=== PATIENT | male | born 1965 | race Caucasian/White ===

== ENCOUNTER 2018-05-12 07:18 | Emergency (ER) | payer BC, SELFPAY ==
[2018-05-12 07:19] VITALS: BP 172/87; PULSE 79; RESP 18; TEMP 36.6; O2SAT 98; BMI 33.5
--- NOTE | 2018-05-12 07:36 | EKG12_ITS ---
Test Reason : CHEST TIGHTNESS Blood Pressure : / mmHG Vent. Rate : 078 BPM Atrial Rate : 078 BPM P-R Int : 190 ms QRS Dur : 094 ms QT Int : 356 ms P-R-T Axes : 046 010 027 degrees QTc Int : 405 ms Normal sinus rhythm Normal ECG Confirmed by VIVEK BISWAS, DANIELLE ([id number]), multimedia editor MANNY SEGURA ([id number]) on 05/13/2018 2:20:03 PM Referred By: LEONCIO Confirmed By:DANIELLE DOYLE MD
--- NOTE | 2018-05-12 07:40 | NURSING ---
NO OLD EKGS
[2018-05-12] MEDS: Diphth,Pertuss(Acell),Tet Vac 0.5 ML Vial IM (07:52)
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
[2018-05-12 08:04] LABS: Hematocrit 45.7 % (40-54); Mean Corp Hgb Conc 32.8 g/gl (32-36); Mean Corpuscular Volume 85.4 fL (80-94); Mean Platelet Vol. 9.1 fl (6.2-12.0); Platelet Count 208 K/mm3 (150-450); RBC Distribution Width CV 13.9 % (11.6-14.6); Red Blood Count 5.35 M/mm3 (4.6-6.2); White Blood Count 7.6 K/mm3 (4.4-11.0)
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
[2018-05-12 08:05] LABS: Scan Indicated on CBC? Y/N NO
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
[2018-05-12 08:19] LABS: Anion Gap 10 (5-15); BUN 18 mg/dL (7-18); BUN/Creat Ratio 15.1 RATIO (10-20); Calcium,Total 9.1 mg/dL (8.5-10.1); Chloride 106 mmol/L (98-107); Creatinine, Serum 1.19 mg/dL (0.70-1.30); EST Glomerular Filtration Rate 69 mL/min (>60); Est Glom Filt Rate - Afr Amer 83 mL/min (>60); Estimated Creatinine Clearance 76.68 ml/min; Glucose 149 mg/dL (74-106); Potassium 3.9 mmol/L (3.5-5.1); Sodium Level 140 mmol/L (136-145)
[2018-05-12 10:41] VITALS: PULSE 81; RESP 18; O2SAT 94
[2018-05-12 11:02] VITALS: BP 135/90; PULSE 85; RESP 18; O2SAT 94
[2018-05-12] MEDS: Naproxen 250 MG Tablet 500 MG PO (11:11)
[2018-05-12 12:50] VITALS: BP 136/89; PULSE 78; RESP 18; O2SAT 98
== END 2018-05-12 12:52 | disposition home or self-care (01) ==
PROVIDERS: Emergency Provider Emergency Medicine; Family Provider Internal Medicine; PCP Internal Medicine
DX: S80.12XA Contusion of left lower leg, initial encounter (principal); V43.53XA Car driver injured in collision with pick-up truck in traffic accident, initial encounter; Y93.89 Activity, other specified; Y92.410 Unspecified street and highway as the place of occurrence of the external cause; R07.89 Other chest pain; E11.9 Type 2 diabetes mellitus without complications; Z79.84 Long term (current) use of oral hypoglycemic drugs
CPT/HCPCS: 71046; 80048; 84484; 85027; 90715; 93005; 99285; A4216

== ENCOUNTER → 2018-11-07 13:13 | Outpatient (CLI) | payer SELFPAY ==
--- NOTE | 2018-11-07 13:17 | CT_ITS ---
STUDY: CARDIAC CALCIUM SCORING - CT CHEST REASON FOR EXAM: Male, 52 years old. Calcium screening RADIATION DOSAGE (If Supplied By Facility): CTDIvol = ( 12.19 ) mGy, DLP = ( 195.04 ) mGycm TECHNIQUE: Axial non-enhanced images were acquired through the heart for the sole purpose of measuring coronary artery calcium. Individualized dose optimization techniques were used for this CT. COMPARISON: None. FINDINGS: Loculation percentile. Cardiac chambers are normal in size and shape. Pericardium is intact. Coronary arteries have normal orthotopic origins with a right dominant system. Visualized portions of the lungs are unremarkable. Total Calcium Score: Computer-generated score is 41. This places the patient at 75[address]/Limited Chest CT w/CCTA IMPRESSION: A Calcium Score of 41 places the patient in the approximate 75th percentile, based on the [employer] data calculator. Higher than population average future risk of adverse cardiovascular events. No incidental adverse findings. Please go to: [email or web address] , for a description of the calculator. Electronically Signed: Santa Chua, at 15:09 EDT Tel , Service support ,
[2018-11-07 13:27] VITALS: BP 113/83; PULSE 68; RESP 18; TEMP 36.9; O2SAT 100; BMI 32.3
--- NOTE | 2018-11-11 18:16 | CA.SCORE ---
Calcium Scoring Date of Study:: 11/11/18 Coronary Calcium Scoring: High-resolution Computed Tomographic imaging of the chest was performed on 11/07/2018 with particular attention paid to the coronary arteries. Images from the examination were analyzed for the presence and extent of coronary artery calcification , using coronary calcium quantification software. The patient tolerated the procedure well and there were no complications. The results of the coronary calcification analysis are provided below. - Findings Left Main (LM): 0 Left Anterior Descending (LAD): 40.5 Left Circumflex (LCX): 0 Right Coronary Artery (RCA): 0 Total Agatston Score: 40.5 Percentile Ranking: Percentile ranking: Between 50 and 75% of people of the same gender/similar age had the same/lower scores Calcium Scoring Interpretation: 0 No identifiable atherosclerotic plaque. Very low cardiovascular disease risk. <5% chance of presence coronary artery disease A Negative Examination 1-10 Minimal Plaque burden. Significant coronary artery disease very unlikely. 11-100 Mild plaque burden. Likely mild or minimal coronary atherosclerosis. 101-400 Moderate plaque burden Moderate non-obstructive coronary artery disease highly likely. Over 400 Extensive plaque burden. High likelihood of at least one significant coronary stenosis (>50% diameter) Calcium Score: 11 - 100 Likely mild or minimal coronary stenosis - Continue cardiovascular risk factor evaluation and care as deemed appropriate
== END ==
PROVIDERS: Family Provider Internal Medicine; PCP Internal Medicine; Referring Provider Internal Medicine; Visit Provider Internal Medicine
DX: Z13.6 Encounter for screening for cardiovascular disorders (principal); E11.9 Type 2 diabetes mellitus without complications; E78.5 Hyperlipidemia, unspecified
CPT/HCPCS: 75571; 76380

== ENCOUNTER → 2019-02-10 05:58 | Outpatient (CLI) | payer BC, SELFPAY ==
[2019-01-13 15:03] VITALS: BMI 32.6
--- NOTE | 2019-02-10 13:51 | STRESSREP_ITS ---
Stress Test Report Date: 02-10-19 Procedure: Exercise tolerance test/imaging study Indications: Abnormal cardiac CTA Consent: Per the patient Procedure: The patient exercised on a Kip protocol for 10 minutes completing Stage III and 1 minute of Stage IV achieving a peak heart rate of 157 bpm (92 % predicted maximal heart rate) with a peak blood pressure 184/90 mmHg and a peak MET capacity of 12 METs. The baseline ECG demonstrated normal sinus rhythm. The peak exercise ECG demonstrated no obvious ECG changes. There were no cardiac dysrhythmias pretest, during exercise, or recovery. The functional capacity was considered good. There was no complaint of chest discomfort during exercise or recovery. The examination was discontinued secondary to dyspnea. Impression: 1. Technically adequate (percent predicted maximal heart rate greater than 85%) exercise tolerance test 2. Peak exercise ECG with no obvious ECG changes 3. There were no cardiac dysrhythmias pretest, during exercise, or recovery 4. Nuclear images pending Myocardial perfusion imaging study: Technique: The patient was injected with 9.0 mCi of technetium 99m Cardiolite and subsequently rest SPECT Cardiolite nuclear imaging was obtained in the horizontal long, vertical long, and short axis views. The patient exercised on a Kip protocol for 10 minutes completing Stage III and 1 minute of Stage IV achieving a peak heart rate of 157 bpm (92 % predicted maximal heart rate) with a peak blood pressure 184/90 mmHg and a peak MET capacity of 12 METs. The patient was injected with 34.0 mCi of technetium 99m Cardiolite and subsequently stress SPECT Cardiolite nuclear imaging was obtained in the horizontal long, vertical long, and short axis views. A gated Cardiolite study at peak stress was obtained. Interpretation: Rest and stress SPECT Cardiolite nuclear imaging status post realignment, normalization, and attenuation correction, demonstrates the appearance of relative uniform tracer uptake and myocardial perfusion appearing within normal limits. There is end systolic thickening and brightening. The gated Cardiolite study demonstrates myocardial thickening and inward wall motion. The reported LVEF is 59 %. Impression: 1. Rest and stress SPECT Cardiolite nuclear imaging demonstrate relative uniform tracer uptake and myocardial perfusion appearing within normal limits. 2. The gated Cardiolite study reports an LVEF of 59 %. This note was generated with Inst[employer]ivation software. It may contain incorrect words, spelling, and punctuation that were not noted in checking the note before signing.
== END ==
PROVIDERS: Family Provider Internal Medicine; PCP Internal Medicine; Referring Provider Internal Medicine Cardiovascular Disease; Visit Provider Internal Medicine Cardiovascular Disease
DX: R93.1 Abnormal findings on diagnostic imaging of heart and coronary circulation (principal); E78.2 Mixed hyperlipidemia; I10 Essential (primary) hypertension; E11.9 Type 2 diabetes mellitus without complications
CPT/HCPCS: 78452; 93017; A9500; A4216

== ENCOUNTER 2024-09-21 22:11 | Observation (INO) | payer OTHER, SELFPAY ==
[2024-09-21 22:13] VITALS: BP 154/106; PULSE 105; RESP 18; TEMP 36.4; O2SAT 97; BMI 33.6
--- NOTE | 2024-09-21 22:46 | EKG12_ITS ---
Test Reason : DYSRHYTHMIA Blood Pressure : */* mmHG Vent. Rate : 87 BPM Atrial Rate : 87 BPM P-R Int : 182 ms QRS Dur : 80 ms QT Int : 342 ms P-R-T Axes : 29 -1 8 degrees QTcB Int : 411 ms Normal sinus rhythm Minimal voltage criteria for LVH, may be normal variant ( R in aVL ) Borderline ECG Confirmed by VIVEK BISWAS, DANIELLE ([id number]), manuscript editor MANNY SEGURA ([id number]) on 09/22/2024 1:04:35 PM Referred By: Confirmed By: DANIELLE DOYLE MD
--- NOTE | 2024-09-21 22:46 | CT_ITS ---
PROCEDURE: STROKE CTA HEAD AND NECK W/CON 09/21/2024 REASON FOR EXAM: INTERMITTENT LEFT SIDED NUMBNESS WITH DYSEQUILBRM TECHNIQUE: Noncontrast CT head. Followed by CT Angiography of the head and neck with IV contrast. Multiplanar Sagittal and Coronal images were obtained. 3D and MIP multiplanar post processing was performed. CONTRAST: Isovue 370 VOLUME: 100 mL One or more dose reduction techniques were used (e.g., Automated exposure control, adjustment of the mA and/or kV according to patient size, use of iterative reconstruction technique). RADIATION DOSE SUMMARY: DLP: 1742.7 mGycm COMPARISON: None available. FINDINGS: CTA HEAD: Patent intracranial arterial vasculature. No large vessel occlusion or significant stenosis. origin of bilateral service order dispatcher, an anatomic variant. No visible connection of the right BIOMEDICAL ENGINEERING PROFESSOR to the basilar artery. Left BIOMEDICAL ENGINEERING PROFESSOR P1 segment is present. There is a small 2 mm saccular aneurysm projecting anterosuperiorly from the supraclinoid right ICA (S4 image [id number]). No additional aneurysm, or vascular malformation identified. CTA NECK: Conventional aortic arch branching. Bilateral cervical carotid and vertebral arteries are patent without any significant stenosis. No luminal irregularity to suggest aneurysm or dissection. NONCONTRAST CT HEAD: No acute intracranial hemorrhage, extra-axial collection, mass effect or evidence of acute infarct. Ventricles and subarachnoid spaces are normal in size. Orbital contents are unremarkable. Intact skull base and calvarium. Small left maxillary mucous retention cyst/polyp. CT/STROKE CTA Head AND Neck W/Con IMPRESSION: 1. No acute intracranial abnormality. 2. Widely patent intracranial and cervical arterial vasculature. 3. 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 Reading Location: [id number]
--- NOTE | 2024-09-21 22:51 | ED.VIS.STROK ---
HPI History of Present Illness Chief Complaint: Numb/Ting Informant: patient and spouse/S.O. Narrative Narrative: 58-year-old male states has been having episodes of numbness left tongue and mouth, left hand, left foot last 10 seconds or so at a time, for the past 36 hours or so. States today he had 3-4 episodes in the last 1 occurred about an hour prior to arrival. He is asymptomatic at this time. No associated headaches, vision changes, earaches, but he has had dizziness associated with them that he initially said felt like lightheadedness but then gave more details and said that it felt like he was off balance and was more like a sensation of movement. Not associated with headache, nausea, vomiting, fever, says his neck is felt a little sore lately but nothing severe. 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 States he may be sinus infection citing some right maxillary pressure/pain and congestion several weeks ago but that went away on its own. He takes no antiplatelet or anticoagulants. He is a diabetic and checked his blood sugar prior to coming here and it was in the 140s. [facility] Medical History (Updated 09/22/24 @ 00:[address] Chalino Smith MD) Abnormal TSH Mixed hyperlipidemia Abnormal cardiac CT angiography Type 2 diabetes mellitus Home Medications ?Medication ?Instructions ?Recorded ?Last Taken ?Type metformin 500 mg tablet 1,000 mg PO BIDCM DIABETES 05/12/18 05/12/18 History 1000 MG vitamins A,C,W-zmgp-jvkwmh 4,296 1 cap PO DAILY 01/09/19 Unknown History mcg-226 mg-90 mg capsule (PreserVision AREDS) cholecalciferol (vitamin D3) 125 5,000 unit PO DAILY 01/13/19 Unknown History mcg (5,000 unit) capsule dapagliflozin propanediol 10 mg 10 mg PO DAILY 09/21/24 Unknown History tablet (Farxiga) semaglutide 0.25 mg or 0.5 mg (2 0.5 mg subcut QWEEK 09/21/24 Unknown History mg/3 mL) subcutaneous pen injector (Ozempic) Allergy/AdvReac Type Severity Reaction Status Date / Time No Known Allergies Allergy Verified 09/21/24 22:13 Family History (Updated 01/13/19 @ 15:10 by Marcela Pino) Mother CVA (cerebral vascular accident) Grandfather Heart disease Father Kidney disease Daughter [id number]-[id number] (WPW) syndrome Surgical History History of knee surgery History of umbilical hernia repair Social History (Updated 01/13/19 @ 16:[address] Bakari Gibson MD) Smoking Status: Never smoker alcohol intake: current details: occasional substance use type: does not use caffeine: No ROS ROS ED Constitutional Constitutional ED: Denies chills or fever(s) Eyes Eyes: Denies change in vision or diplopia ENT ENT ED: Reports other Details: Chronic tinnitus no change ; Denies rhinorrhea or sore throat Cardiovascular Cardiovascular: Denies chest pain or palpitations Respiratory/Chest Respiratory/Chest: Denies cough or dyspnea Gastrointestinal Gastrointestinal: Denies abdominal pain, diarrhea, nausea or vomiting Genitourinary Genitourinary ED: Denies dysuria or hematuria Musculoskeletal Musculoskeletal: Denies back pain or neck pain Integumentary Denies abscess or rash Neurologic Neurologic: Reports paresthesias LUE and LLE; Denies headache(s) or weakness Psychiatric Psychiatric: Denies anxiety or suicidal thoughts EXAM Physical Exam Const Vital Signs: 09/21/24 22:13 09/21/24 23:00 09/21/24 23:02 Temperature 97.6 F L Temperature Source Temporal Pulse Rate 105 H 97 Respiratory Rate 18 18 Blood Pressure 154/106 H 132/107 H Blood Pressure Mean 122 115 Pulse Ox 97 97 99 Oxygen Delivery Method Room Air Room Air Room Air 09/22/24 00:00 09/22/24 00:00 Temperature 99.0 F Temperature Source Pulse Rate 91 93 Respiratory Rate 16 16 Blood Pressure 150/92 H 150/92 H Blood Pressure Mean 111 111 Pulse Ox 96 97 Oxygen Delivery Method Room Air Positive well nourished and well developed General Appearance ED: well developed and NAD HEENT Reports TM's clear and moist mucous membranes normocephalic and atraumatic Tympanic Membrane ED: Yes TM's clear Eyes PERRL and EOMs intact bilaterally Neck full ROM and supple Resp normal respiratory effort and clear to auscultation bilaterally Cardio regular rate, regular rhythm and no murmurs GI non-tender and non-distended Auscultation: normoactive bowel sounds Palpation: soft Back/Spine no CVA tenderness General Back: other FROM Extremity normal to inspection General Extremety ED: Negative for edema, pulses abnormal or tenderness General Extremity: Negative for edema or pulses abnormal Neuro oriented x3, CN's II-XII intact bilaterally and no sensory deficits noted Sensorium / Orientation: awake and alert Motor Exam: strength 5/5 throughout Skin no rashes or lesions noted and no wounds MDM MDM MDM Narrative Medical decision making narrative: Patient asymptomatic at this time, vitals noted. Blood pressure in 150s. I think this is less likely to be a TIA although certainly vascular events are considered, so I sent him for CT angiography of the head and neck, as well as getting labs and an EKG which shows a normal sinus rhythm with no acute ectopy or abnormality. I reviewed the CT images as well as result which I agree with. 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 Given that his symptoms are left body right brain, and being unsure if they correlate with the location of this, I discussed with stroke neurology [facility] Dr. Mora, he recommends admitting the patient to our facility for MRI and neurology consultation, states the patient does not need to be transferred to [facility] for emergent neurosurgical consultation at this time. Discussed with hospitalist for admission. Of note the patient has had several brief 10 seconds or less episodes of this while in the emergency department, I do not think he needs to have thrombolytics as this is less likely to be a vascular event under the circumstances. Differential also includes subclinical seizure activity, migraine, other primary [employer] syndromes. Lab Data Attestation: I reviewed the patient's lab results. Labs: Laboratory Results - last 24 hr 09/21/24 22:54 WBC 7.0 RBC 5.39 Hgb 15.5 Hct 44.4 MCV 82.4 MCH 28.8 MCHC 34.9 RDW Std Deviation 40.5 RDW Coeff of Alexey 13.7 Plt Count 258 MPV 9.2 Immature Gran % (Auto) 0.300 Neut % (Auto) 53.3 Lymph % (Auto) 37.1 Bent % (Auto) 6.0 Eos % (Auto) 2.6 Baso % (Auto) 0.7 Absolute Neuts (auto) 3.7 Absolute Lymphs (auto) 2.58 Nucleated RBC % 0 Sodium 136 Potassium 4.2 Chloride 99 Carbon Dioxide 20.2 L Anion Gap 16 H BUN 12 Creatinine 1.01 Estim Creat Clear Calc 96.74 Est GFR (MDRD) Non-Af 87 BUN/Creatinine Ratio 11.4 Glucose 185 H Calcium 9.1 Radiography Diagnostic Testing: Clinical Impression(s) from Imaging Studies Head/Neck CTA 09/21/24 22:46 IMPRESSION: 1. No acute intracranial abnormality. 2. Widely patent intracranial and cervical arterial vasculature. 3. 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 Reading Location: [facility] Rhythm Strip Rhythm Strip: Sinus Rhythm Rate: 87 Ectopy: None EKG Initial EKG: Attestation: I personally reviewed and interpreted this EKG as follows: Interpretation: Sinus Rhythm and No Acute Injury Pattern Comments: Nml axis & intervals; nml EKG Management Discussion w/another healthcare provider: Hospitalist and [employer] Operator (Stroke neurology [facility]) Discharge Plan Dx/Rx/DC Orders Clinical Impression: Left sided numbness, Dysequilibrium Disposition Disposition: Acute Care Hospital [facility] NIHSS NIHSS 1a. Level of Consciousness: 0 - Alert; keenly responsive 1b. LOC Questions: 0 - Answers BOTH questions correctly 1c. LOC Commands: 0 - Performs BOTH tasks correctly 2. Best Gaze: 0 - Normal 3. Visual: 0 - No visual loss 4. Facial Palsy: 0 - Normal symmetrical movements 5a. Left Arm: 0 - No drift; arm holds 90 (or 45) degrees for full 10 seconds 5b. Right Arm: 0 - No drift; arm holds 90 (or 45) degrees for full 10 seconds 6a. Left Le - No drift; leg holds 30-degree position for full 5 seconds 6b. Right Le - No drift; leg holds 30-degree position for full 5 seconds 7. Limb Ataxia: 0 - Absent 8. Sensory: 0 - Normal; no sensory loss 9. Best Language: 0 - No aphasia; normal 10. Dysarthria: 0 - Normal 11. Extinction and Inattention: 0 - No abnormality Total: 0 Stroke Questions Stroke Team Activated: No (Outside 24-hour window) IV Thrombolytic Administered: No (Outside window and asymptomatic)
[2024-09-21 23:00] VITALS: BP 132/107; PULSE 97; RESP 18; O2SAT 97
[2024-09-21 23:02] VITALS: O2SAT 99
[2024-09-21 23:04] LABS: Hematocrit 44.4 % (40-54); Hemoglobin 15.5 g/dL (13.0-16.5); Immature Granulocytes Count 0.020 X10^3/uL (0.0-0.0); Mean Corp Hgb Conc 34.9 g/dL (32-36); Mean Corpuscular Volume 82.4 fL (80-94); Mean Platelet Vol. 9.2 fl (6.2-12.0); NRBC Flagged by Analyzer 0 % (0-5); Platelet Count 258 K/mm3 (150-450); RBC Distribution Width CV 13.7 % (11.6-14.6); RBC Distribution Width SD 40.5 fl (35.1-43.9); Red Blood Count 5.39 M/mm3 (4.6-6.2); White Blood Count 7.0 K/mm3 (4.4-11.0)
[2024-09-21 23:31] LABS: Anion Gap 16 (5-15); BUN 12 mg/dL (4-19); BUN/Creat Ratio 11.4 RATIO (10-20); Calcium,Total 9.1 mg/dL (7.6-11.0); Carbon Dioxide 20.2 mmol/L (21.0-32.0); Chloride 99 mmol/L (98-108); Estimated Creatinine Clearance 96.74 ml/min (50-250); Glucose 185 mg/dL (70-99); Potassium 4.2 mmol/L (3.3-5.1)
--- OUTSIDE RECORDS SUMMARY | 2024-09-21 23:34 | XMS RPT_ITS | CCD ---
Author Organization [facility] Care Team Providers Care Security Tester Name Role Phone Kathleen, Marva Unavailable Messenger, Nita Unavailable Unavailable Unavailable Unavailable Kathleen, Marva Unavailable Geovanny Toussaint Unavailable Unavailable Messenger, Nita Unavailable Unavailable Unavailable Unavailable Oliverio Garcia Unavailable José Luis, Kim Unavailable Unavailable Bakari Gibson Unavailable Viviane Munoz Unavailable Unavailable Gravius, Angelica Unavailable Unavailable Messenger, Nita Unavailable Unavailable CrossTanja Unavailable Unavailable Kathleen DO, Marva Unavailable [phone] Bakari Gibson MD Unavailable Dr. Oliverio Gracia Unavailable Gravius STATE WILDLIFE OFFICER, Angelica Unavailable Unavailable Slarb SENIOR SALES DIRECTOR, Kim Unavailable Unavailable Messenger RNNita Unavailable Unavailable Unavailable Unavailable Chalo DURANDNTanja Unavailable Unavailable Lakhwinder SENIOR SALES DIRECTOR, Tamar Unavailable Unavailable Kathleen DO, Marva Unavailable [phone] [place], [facility] Unavailable [place] STATE WILDLIFE OFFICER, Kayela Unavailable Unavailable Kathleen DO, Marva Attending Unavailable Kathleen DO, Marva Referring Unavailable Kathleen DO, Marva Consulting Unavailable Shadi SENIOR SALES DIRECTOR, Luis Unavailable Unavailable Kathleen DO, Marva Unavailable [place], Chrysalis Counciling Unavailable Bakari Gibson MD Unavailable Dr. Oliverio Garcia Unavailable [place] SENIOR SALES DIRECTOR, Luis Unavailable Unavailable Cross SENIOR SALES DIRECTOR, Tanja Unavailable Unavailable Gravius STATE WILDLIFE OFFICER, Angelica Unavailable Unavailable [place] STATE WILDLIFE OFFICER, Kayela Unavailable Unavailable Slarb SENIOR SALES DIRECTOR, Kim Unavailable Unavailable Jared RN, Nita Unavailable Unavailable Unavailable Unavailable Sandor NORTH, Lissette Unavailable Unavailable Allergies Allergy Classification Reported Allergen(s) Allergy Type Date of Onset Reaction(s) Facility NEGATED: Highlighted row has been ruled out! (1 source) Allergy to substance (finding) [facility] Work Phone: NEGATED: Highlighted row has been ruled out! (1 source) Allergy to drug (finding) [facility]; [facility] Work Phone: NEGATED: Highlighted row has been ruled out! (1 source) Allergy to substance (finding) [facility]; [facility] Work Phone: NEGATED: Highlighted row has been ruled out! (1 source) Allergy to drug (finding) [facility]; [facility] Work Phone: NEGATED: Highlighted row has been ruled out! (1 source) Allergy to substance (finding) [facility]; [facility] Work Phone: NEGATED: Highlighted row has been ruled out! (1 source) Allergy to drug (finding) [facility]; [facility] Work Phone: NEGATED: Highlighted row has been ruled out! (1 source) Allergy to substance (finding) [facility]; [facility] Work Phone: NEGATED: Highlighted row has been ruled out! (1 source) Allergy to drug (finding) [facility]; [facility] Work Phone: NEGATED: Highlighted row has been ruled out! (1 source) Allergy to substance (finding) [facility]; [facility] Work Phone: NEGATED: Highlighted row has been ruled out! (1 source) Allergy to drug (finding) [facility]; [facility] Work Phone: NEGATED: Highlighted row has been ruled out! (1 source) Allergy to substance (finding) 6 [facility]; [facility] Work Phone: NEGATED: Highlighted row has been ruled out! (1 source) Allergy to drug (finding) [facility]; [facility] Work Phone: NEGATED: Highlighted row has been ruled out! (1 source) Allergy to substance (finding) 6 [facility]; [facility] Work Phone: NEGATED: Highlighted row has been ruled out! (1 source) Allergy to drug (finding) [facility]; [facility] Work Phone: NEGATED: Highlighted row has been ruled out! (1 source) Allergy to substance (finding) 6 [facility]; [facility] Work Phone: NEGATED: Highlighted row has been ruled out! (1 source) Allergy to drug (finding) [facility]; [facility] Work Phone: Medications Completed/Discontinued Medications Medication Drug Class(es) Dates Sig (Normalized) Sig (Original) ascorbic acid 100 mg chewable tablet (20 sources) Vitamin C Comment on above: pt unsure of dose cholecalciferol 0.05 mg oral capsule (20 sources) Vitamin D Start: 12-14-2015 End: 01-13-2016 Start: 12-14-2015 End: 01-13-2016 take 1 capsule by mouth three times daily Vitamin D 2000 UNIT Oral Capsule 1 (one) Capsule tid qd for 30 days Quantity: 30 {Capsule} Refills: 0 Ordered: 16-Jan-2016 Marva Wang DO, DO, Kathleen Start : 14-Dec-2015 End : 13-Jan-2016 Inactive take 1 [IU] by mouth three times daily Vitamin D3 2000 UNIT Oral Tablet tid (2000 UNIT) Active ciclesonide 0.05 mg/actuat m etered dose nasal spray (20 sources) Start: 02-10-2010 End: 09-14-2015 Start: 02-10-2010 End: 09-14-2015 Omnaris 50 MCG/ACT Nasal Ludivina pension 2 (two) Suspension qd for 0 days Quantity: 1 {Suspension} Refills: 1 Ordered: 14-Sep-2015 Nita Coleman RN Start : 10-Feb-2010 End : 14-Sep-2015 Inactive fexofenadine hydrochloride 1 80 mg oral tablet (20 sources) Histamine-1 Receptor Antagonist Start: 02-10-2010 End: 09-14-2015 Comment on above: This order discontin ued per [facility]. metFORMIN hydrochloride 500 mg oral tablet (20 sources) Biguanide Start: 09-24-2022 Start: 06-04-2022 Start: 06-04-2022 take 2 tablets by mo uth twice daily metFORMIN 500 mg oral tablet 2 (two) Tablet bid for 30 days Quantity: 120 {Tablet} Refills: 3 Ordered: 04-Jun-2022 Marva Wang DO, DO, Kathleen Start : 04-Jun-2022 Active Comments: new dose Start: 01-04-2022 take 2 tablets by mo uth twice daily metFORMIN HCl 500 MG Oral Tablet 2 (two) Tablet bid for 30 days Quantity: 120 {Tablet} Refills: 3 Ordered: 04-Jan-2022 Marva Wang DO, DO, Kathleen Start : 04-Jan-2022 Active Comments: new dose Start: 01-03-2022 take 2 tablets by mo uth twice daily metFORMIN HCl 500 MG Oral Tablet 2 (two) Tablet bid for 30 days Quantity: 120 {Tablet} Refills: 3 Ordered: 03-Jan-2022 Marva Wang DO, DO, Kathleen Start : 03-Jan-2022 Active Comments: new dose Start: 01-03-2022 take 2 tablets by mo uth twice daily metFORMIN HCl 500 MG Oral Tablet 2 (two) Tablet bid for 30 days Quantity: 120 {Tablet} Refills: 3 Ordered: 03-Jan-2022 Marva Wang DO, DO, Kathleen Start : 03-Jan-2022 Active Comments: new dose Start: 08-30-2021 take 2 tablets by mo uth twice daily metFORMIN HCl 500 MG Oral Tablet 2 (two) Tablet bid for 30 days Quantity: 120 {Tablet} Refills: 3 Ordered: 30-Aug-2021 Marva Wang DO, DO, Kathleen Start : 30-Aug-2021 Active Comments: new dose Start: 2020 take 2 tablets by mo uth twice daily metFORMIN HCl 500 MG Oral Tablet 2 (two) Tablet bid for 30 days Quantity: 120 {Tablet} Refills: 3 Ordered: 13-Dec-2020 Marva Wang DO, DO, Kathleen Start : 13-Dec-2020 Active Comments: new dose Start: 07-22-2020 take 2 tablets by [facility] twice daily metFORMIN HCl 500 MG Oral Tablet 2 (two) Tablet bid for 30 days Quantity: 120 {Tablet} Refills: 3 Ordered: 22-Jul-2020 Marva Wang DO, DO, Kathleen Start : 22-Jul-2020 Active Comments: new dose Start: 03-24-2020 take 2 tablets by [facility] twice daily metFORMIN HCl 500 MG Oral Tablet 2 (two) Tablet bid for 30 days Quantity: 120 {Tablet} Refills: 3 Ordered: 24-Mar-2020 Marva Wang DO, DO, Kathleen Start : 24-Mar-2020 Active Comments: new dose Start: 11-19-2019 take 2 tablets by [facility] twice daily metFORMIN HCl 500 MG Oral Tablet 2 (two) Tablet bid for 30 days Quantity: 120 {Tablet} Refills: 3 Ordered: 19-Nov-2019 Marva Wang DO, DO, Kathleen Start : 19-Nov-2019 Active Comments: new dose Start: 07-13-2019 take 2 tablets by [facility] twice daily metFORMIN HCl 500 MG Oral Tablet 2 (two) Tablet bid for 30 days Quantity: 120 {Tablet} Refills: 3 Ordered: 13-Jul-2019 Marva Wang DO, DO, Kathleen Start : 13-Jul-2019 Active Comments: new dose Start: 11-03-2018 take 2 tablets by [facility] twice daily metFORMIN HCl 500 MG Oral Tablet 2 (two) Tablet bid for 30 days Quantity: 120 {Tablet} Refills: 3 Ordered: 03-Nov-2018 Marva Wang DO, DO, Kathleen Start : 03-Nov-2018 Active Comments: new dose Start: 06-24-2018 take 2 tablets by [facility] twice daily MetFORMIN HCl 500 MG Oral Tablet 2 (two) Tablet bid for 30 days Quantity: 120 {Tablet} Refills: 3 Ordered: 24-Jun-2018 Marva Wang DO, DO, Kathleen Start : 24-Jun-2018 Active Comments: new dose Start: 02-06-2018 take 2 tablets by [facility] twice daily MetFORMIN HCl 500 MG Oral Tablet 2 (two) Tablet bid for 30 days Quantity: 120 {Tablet} Refills: 3 Ordered: 06-Feb-2018 aMrva Wang DO, DO, Kathleen Start : 06-Feb-2018 Active Comments: new dose Comment on above: new dose Mounjaro 2.5 mg/0.5 mL subcu taneous pen injector (14 sources) Start: 10-24-2022 Start: 07-31-2022 Start: 07-31-2022 Mounjaro 2.5 m g/0.5 mL subcutaneous pen injector 1 (one) Solution Pen-injector qweek for 0 days Quantity: 4 {Unspecified} Refills: 2 Ordered: 31-Jul-2022 Marva Wang DO, DO, Kathleen Start : 31-Jul-2022 Active Comments: dispense one month - 4penstry coupon please has new ins now Start: 04-11-2022 Mounjaro 2.5 m g/0.5 mL subcutaneous pen injector 1 (one) Solution Pen-injector qweek for 0 days Quantity: 4 {Unspecified} Refills: 2 Ordered: 11-Apr-2022 Marva Wang DO, DO, Kathleen Start : 11-Apr-2022 Active Comments: dispense one month - 4penstry coupon please has new ins now Comment on above: dispense one month - 4penstry coupon please has new ins now Mounjaro 2.5 MG/0.5ML Subcutaneous Solution Pen-injector (1 source) Start: 01-03-2022 Mounjaro 2.5 MG/0.5ML Subcutaneous Solution Pen-injector 1 (one) Solution Pen-injector qweek for 0 days Quantity: 4 {Unspecified} Refills: 0 Ordered: 03-Jan-2022 Marva Wang DO, DO, Kathleen Start : 03-Jan-2022 Active Comments: dispense one month - 4pens Comment on above: dispense one month - 4pens oseltamivir 75 mg oral capsule (20 sources) Neuraminidase Inhibitor Start: 04-10-2016 End: 07-11-2016 sildenafil 20 mg oral tablet (20 sources) Phosphodiesterase 5 Inhibitor Start: 10-31-2022 End: 08-23-2022 Start: 10-31-2022 End: 08-23-2022 Start: 10-31-2022 End: 08-23-2022 Start: 10-31-2022 End: 08-23-2022 Start: 10-31-2022 End: 08-23-2022 Start: 07-24-2022 End: 08-23-2022 Start: 07-24-2022 take 2 tablets by mo uth once daily as needed sildenafil (pulm.hypertension) 20 mg oral tablet 2 (two) Tablet qd prn sexual activity for 30 days Quantity: 60 {Tablet} Refills: 0 Ordered: 24-Jul-2022 Marva Wang DO, DO, Kathleen Start : 24-Jul-2022 Active Comments: sixty Start: 11-10-2021 take 2 tablets by mo ut once daily as needed Sildenafil Citrate 20 MG Oral Tablet 2 (two) Tablet qd prn sexual activity for 0 days Quantity: 60 {Tablet} Refills: 3 Ordered: 10-Nov-2021 Marva Wang DO, DO, Kathleen Start : 10-Nov-2021 Active Comments: sixty Start: 04-21-2021 take 2 tablets by mo ut once daily as needed Sildenafil Citrate 20 MG Oral Tablet 2 (two) Tablet qd prn sexual activity for 0 days Quantity: 60 {Tablet} Refills: 3 Ordered: 21-Apr-2021 Marva Wang DO, DO, Kathleen Start : 21-Apr-2021 Active Comments: sixty Start: 10-10-2020 take 2 tablets by mo ut once daily as needed Sildenafil Citrate 20 MG Oral Tablet 2 (two) Tablet qd prn sexual activity for 0 days Quantity: 60 {Tablet} Refills: 3 Ordered: 10-Oct-2020 Marva Wang DO, DO, Kathleen Start : 10-Oct-2020 Active Comments: sixty Start: 05-12-2020 take 2 tablets by mo uth once daily as needed Sildenafil Citrate 20 MG Oral Tablet 2 (two) Tablet qd prn sexual activity for 0 days Quantity: 60 {Tablet} Refills: 3 Ordered: 12-May-2020 Marva Wang DO Kathleen DO Marva Start : 12-May-2020 Active Comments: cathy Start: 01-08-2020 take 2 tablets by mo uth once daily as needed Sildenafil Citrate 20 MG Oral Tablet 2 (two) Tablet qd prn sexual activity for 0 days Quantity: 60 {Tablet} Refills: 3 Ordered: 08-Jan-2020 Kathleen DO, Marva Kathleen DO Marva Start : 08-Jan-2020 Active Comments: sixty Start: 01-06-2020 take 2 tablets by mo uth once daily as needed Sildenafil Citrate 20 MG Oral Tablet 2 (two) Tablet qd prn sexual activity for 0 days Quantity: 60 {Tablet} Refills: 3 Ordered: 06-Jan-2020 Kathleen DO, Marva Kathleen DO Marva Start : 06-Jan-2020 Active Comments: sixty Start: 01-06-2020 take 2 tablets by mo uth once daily as needed Sildenafil Citrate 20 MG Oral Tablet 2 (two) Tablet qd prn sexual activity for 0 days Quantity: 60 {Tablet} Refills: 3 Ordered: 06-Jan-2020 Kathleen DO, Marva Kathleen DO Marva Start : 06-Jan-2020 Active Comments: sixty Start: 08-25-2019 take 2 tablets by mo uth once daily as needed Sildenafil Citrate 20 MG Oral Tablet 2 (two) Tablet qd prn sexual activity for 0 days Quantity: 60 {Tablet} Refills: 3 Ordered: 25-Aug-2019 Kathleen DO, Marva Kathleen DO Marva Start : 25-Aug-2019 Active Comments: sixty Start: 11-25-2018 take 2 tablets by mo uth once daily as needed Sildenafil Citrate 20 MG Oral Tablet 2 (two) Tablet qd prn sexual activity for 0 days Quantity: 60 {Tablet} Refills: 3 Ordered: 25-Nov-2018 Kathleen DO, Marva Kathleen DO Marva Start : 25-Nov-2018 Active Comments: sixty Start: 07-23-2018 take 2 tablets by mo uth once daily as needed Sildenafil Citrate 20 MG Oral Tablet 2 (two) Tablet qd prn sexual activity for 0 days Quantity: 60 {Tablet} Refills: 3 Ordered: 23-Jul-2018 Nita Coleman LPN Start : 23-Jul-2018 Active Comments: sixty Start: 03-19-2018 take 2 tablets by mo uth once daily as needed Sildenafil Citrate 20 MG Oral Tablet 2 (two) Tablet qd prn sexual activity for 0 days Quantity: 60 {Tablet} Refills: 3 Ordered: 19-Mar-2018 Geovanny Toussaint Start : 19-Mar-2018 Active Comments: cathy Start: 11-13-2017 take 2 tablets by [facility] once daily as needed Sildenafil Citrate 20 MG Oral Tablet 2 (two) Tablet qd prn sexual activity for 0 days Quantity: 60 {Tablet} Refills: 3 Ordered: 13-Nov-2017 Marva Wang DO, DO, Kathleen Start : 13-Nov-2017 Active Comments: sixty Comment on above: sixty SITagliptin 100 mg oral tabl et (20 sources) Dipeptidyl Peptidase 4 Inhibitor Start: 01-03-2022 End: 01-03-2022 Start: 12-07-2021 take 1 tablet by keke th once daily Januvia 100 MG Oral Tablet 1 Tablet qd for 0 days Quantity: 30 {Tablet} Refills: 3 Ordered: 07-Dec-2021 Marva Wang DO, DO, Kathleen Start : 07-Dec-2021 Active Start: 07-24-2021 take 1 tablet by keke once daily Januvia 100 MG Oral Tablet 1 Tablet qd for 0 days Quantity: 30 {Tablet} Refills: 3 Ordered: 24-Jul-2021 Marva Wang DO, DO, Kathleen Start : 24-Jul-2021 Active Start: 03-15-2021 take 1 tablet by keke th once daily Januvia 100 MG Oral Tablet 1 Tablet qd for 0 days Quantity: 30 {Tablet} Refills: 3 Ordered: 15-Mar-2021 Marva Wang DO, DO, Kathleen Start : 15-Mar-2021 Active Start: 10-26-2020 take 1 tablet by keke th once daily Januvia 100 MG Oral Tablet 1 Tablet qd for 0 days Quantity: 30 {Tablet} Refills: 3 Ordered: 26-Oct-2020 Angelica eMneses CMA Start : 26-Oct-2020 Active Start: 07-20-2020 take 1 tablet by keke th once daily Januvia 100 MG Oral Tablet 1 Tablet qd for 0 days Quantity: 30 {Tablet} Refills: 3 Ordered: 20-Jul-2020 Marva Wang DO, DO, Kathleen Start : 20-Jul-2020 Active tadalafil 20 mg oral tablet (20 sources) Phosphodiesterase 5 Inhibitor Start: 11-13-2017 End: 07-23-2018 Viteyes AREDS Advanced (8 sources) Viteyes AREDS Advanced Oral Capsule (20 sources) take 1 capsule by mouth once daily Viteyes AREDS Advanced Oral Capsule daily Active NEGATED: Highlighted row has not occurred!drug or medication (20 sources) No Known Historical Medications NEGATED: Highlighted row has not occurred!No Known Historical Medications (11 sources) No Known Historical Medications Problems Active Problems Problem Classification Problem Date Documented Da te Episodic/Chronic Adjustment disorders (20 sources) Stress; Translations: [Situational stress] 01-03-2022 Chronic Administrative/social admission (20 sources) Pneumococcal vaccination given; Translations: [Counseling procedure with explicit context] 10-17-2016 Episodic Coronary atherosclerosis and other heart disease (16 sources) Calcification of coronary artery; Translations: [Elevated coronary artery calcium score] 11-14-2018 Chronic Diabetes mellitus with complications (20 sources) Type II diabetes mellitus uncontrolled; Translations: [Diabetes mellitus type 2, uncontrolled (Renamed from Uncontrolled type 2 diabetes mellitus)] Resolved: 04-11-2022 03-19-2018 Chronic Comment on above: will institute exerc ise and watch sugars -bsd show big iimprovement-=- Diabetes mellitus with complications (20 sources) Diabetes mellitus with complications Diabetes mellitus without complication (20 sources) Type 2 diabetes mellitus; Translations: [Type 2 diabetes mellitus without complication] Resolved: 11-25-2019 11-13-2017 Chronic Comment on above: will institute exerc ise and watch sugars -bsd show big iimprovement-=- Diabetes mellitus without complication (20 sources) Diabetes mellitus without complication Disorders of lipid metabolism (20 sources) Hyperlipidemia; Translations: [Hyperlipidemia] 11-13-2017 Chronic Comment on above: pt to do more diet a nd exercise before meds which i am ok with since lft up pt to do more diet a nd exercise before meds which i am ok with since lft up-- pt to do more diet a nd exercise before meds which i am ok with since lft up--uncontrolled pt to do more diet a nd exercise before meds which i am ok with since lft up--uncontrolled-- LDL 129-- pt prefers not to take Immunizations and screening for infectious disease (20 sources) Need for prophylactic vaccination and inoculation against influenza; Translations: [Pneumococcal vaccination given] 10-17-2016 Episodic Influenza (20 sources) Influenza due to Influenza A virus; Translations: [Influenza A] 11-13-2017 Episodic Nutritional deficiencies (20 sources) Vitamin D deficiency; Translations: [Vitamin D deficiency] 11-13-2017 Chronic Comment on above: pt will increase currently taking 4K currently taking 4K- - be more consistent Other circulatory disease (20 sources) Elevated blood pressure; Translations: [Elevated blood pressure reading] Resolved: 07-18-2022 10-29-2018 Episodic Comment on above: latia are normal Other connective tissue disease (20 sources) Triggering of digit; Translations: [Trigger middle finger of right hand] Resolved: 04-11-2022 09-27-2021 Episodic Other liver diseases (20 sources) Abnormal levels of other serum enzymes; Translations: [Elevated liver enzymes level] Resolved: 03-21-2016 03-21-2016 Episodic Comment on above: multifactorial -- dm , hi Tg , wt - will follow as chg diet and if stay up will do more work up multifactorial -- dm , hi Tg , wt, admits to more etoh lately - will follow as chg diet and if stay up will do more work up Other lower respiratory disease (20 sources) Cough; Translations: [Cough] Resolved: 09-14-2015 09-14-2015 Episodic Other male genital disorders (20 sources) Impotence; Translations: [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 Other non-traumatic joint disorders (20 sources) Joint pain; Translations: [Pain in unspecified joint] Resolved: 10-01-2016 10-01-2016 Episodic Comment on above: no real good explana tionon lab or x-rays to explain all jt pain Other nutritional; endocrine; and metabolic disorders (20 sources) Body mass index 30+ - obesity; Translations: [BMI 31.0-31.9,adult] Resolved: 04-11-2022 11-13-2017 Chronic Comment on above: 30.13 Other screening for suspected conditions (not mental disorders or infectious disease) (20 sources) Liver enzymes abnormal; Translations: [Thyroid hormone tests abnormal] Resolved: 07-20-2020 03-19-2018 Episodic Comment on above: multifactorial -- dm , hi Tg , wt - will follow as chg diet and if stay up will do more work up Residual codes; unclassified (20 sources) Influenza-like symptoms; Translations: [Flu-like symptoms] 11-13-2017 Episodic Residual codes; unclassified (20 sources) Needs influenza immunization; Translations: [Need for prophylactic vaccination and inoculation against influenza (Renamed from Need for immunization against influenza)] 11-13-2017 Episodic Residual codes; unclassified (20 sources) Non-smoker; Translations: [Nonsmoker] 04-13-2020 Episodic Residual codes; unclassified (8 sources) Viral syndrome; Translations: [Flu-like symptoms] 10-23-2022 Episodic Unclassified (20 sources) Unclassified (20 sources) Elevated liver enzymes Unclassified (20 sources) Screening status; Translations: [Encounter for screening for malignant neoplasm of prostate (Renamed from Screening for prostate cancer)] 11-13-2017 Unclassified (20 sources) Non-smoker; Translations: [Nonsmoker] 11-13-2017 Unclassified (20 sources) BMI 30.0-30.9,adult Unclassified (20 sources) Nutritional counseling; Translations: [Patient encounter status] 10-29-2018 Unclassified (20 sources) BMI 31.0-31.9,adult Unclassified (20 sources) Elevated homocysteine Unclassified (20 sources) BMI 33.0-33.9,adult Unclassified (20 sources) BMI 32.0-32.9,adult Unclassified (20 sources) Encounter for screening for malignant neoplasm of colon (Renamed from Special screening for malignant neoplasms, colon) Unclassified (20 sources) Elevated blood pressure reading Unclassified (20 sources) Abnormal TSH Unclassified (20 sources) Elevated coronary artery calcium score Unclassified (20 sources) BMI 34.0-34.9,adult Unclassified (14 sources) BMI 35.0-35.9,adult Unclassified (20 sources) Diabetes mellitus type II, controlled, with no complications (Renamed from Controlled type 2 diabetes mellitus without complication) Unclassified (1 source) Trigger middle finger of right hand Past or Other Problems Problem Classification Problem Date Documented Date Episodic/Chronic Coronary atherosclerosis and other heart disease (20 sources) Coronary atherosclerosis and other heart disease Influenza (20 sources) Influenza Other nutritional; endocrine; and metabolic disorders (20 sources) Homocystinemia; 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] Resolved: 10-01-2016 10-01-2016 Chronic Unclassified (20 sources) ARTHRALGIAS 719.40 Unclassified (20 sources) Flu-like symptoms Unclassified (20 sources) Patient encounter status; Translations: [Immunity status testing] 07-22-2019 Results Test Name Value Interpretation Reference Range Facility HGB A1C (94397)Ordered By: S ystem Hydraulic Hammer Operator on 10-18-2022 HbA1c (Bld) [Mass fraction] 6.3 % Abnormal 4.8-5.6 [facility] Work Phone: PSA (PROSTATE SPECIFIC ANTIG EN) (V76.44)Ordered By: Manager Talent Management on 10-18-2022 Prostate specific Ag [Mass/Vol] 0.5 ng/mL Normal 0.0-4.0 [facility]; [facility] Work Phone: CALCIFEDIOL ([phone])Ordered B y: Manager Talent Management on 07-04-2022 25-hydroxyvitamin D [Mass/Vol] 24.2 ng/mL Abnormal 30.0-100.0 [facility]; [facility] Work Phone: Comment on above: Vitamin D deficiency has been defined by the [place] [employer] and an Endocrine Society practice guideline as alevel of serum 25-OH vitamin D less than 20 ng/mL (1,2).The Endocrine Society went on to further define vitamin Dinsufficiency as a level between 21 and 29 ng/mL (2).1. IOM ([place] [employer]). 2010. Dietary reference intakes for calcium and D. [place]: The National Academies Press.2. Magno MF, Do [place], Jos PRATER, et al. Evaluation, treatment, and prevention of vitamin D deficiency: an Endocrine Society clinical practice guideline. JCEM. 2010; 96(7):1911-30. PATIENT WAS FASTINGP ERFORMED BY: LabcoThe [facility] Hospital of Tinton FallsSozqqr5[address] [facility] [id number] CBC with auto diff ([id number])Or dered By: Manager Talent Management on 07-04-2022 Basophils (Bld) [#/Vol] 0.0 10*3/uL Normal 0.0-0.2 [facility]; [facility] Work Phone: Comment on above: PATIENT WAS FASTINGP ERFORMED BY: MENDEZ Labcomelyssa CaceresZsnuhy0174 Al[address]zo RoadDublin [place] [id number] Basophils/100 WBC (Bld) 1 % Normal [facility]; [facility] Work Phone: Comment on above: PATIENT WAS FASTINGP ERFORMED BY: CB [facility] Xsjccy1907 [address]zo RoadDublin [place] [id number] Eosinophils (Bld) [#/Vol] 0.1 10*3/uL Normal 0.0-0.4 [facility]; [facility] Work Phone: Comment on above: PATIENT WAS FASTINGP ERFORMED BY: [facility] Vdneeb9957 Al[address]zo RoadDublin [place] [id number] Eosinophils/100 WBC (Bld) 1 % Normal [facility]; [facility] Work Phone: Comment on above: PATIENT WAS FASTINGP ERFORMED BY: Labexcelsior [facility] Weiqqs0874 [address]zo RoadAtrium Health Wake Forest Baptist Medical Centerin [place] [id number] Erythrocyte distribution width (RBC) [Ratio] 13.4 % Normal 11.6-15.4 [facility]; [facility] Work Phone: Comment on above: PATIENT WAS FASTINGP ERFORMED BY: [facility] Ywujol5748 [address] RoadDublin [place] [id number] Hematocrit (Bld) [Volume fraction] 47.8 % Normal 37.5-51.0 [facility]; [facility] Work Phone: Comment on above: PATIENT WAS FASTINGP ERFORMED BY: [facility] Ppskaa9961 [address] RoadDublin [place] [id number] Hemoglobin (Bld) [Mass/Vol] 15.8 g/dL Normal 13.0-17.7 [facility]; [facility] Work Phone: Comment on above: PATIENT WAS FASTINGP ERFORMED BY: [facility] Ulmnys6188 [address] RoadDublin [place] [id number] Immature granulocytes (Bld) [#/Vol] 0.0 10*3/uL Normal 0.0-0.1 [facility]; [facility] Work Phone: Comment on above: PATIENT WAS FASTINGP ERFORMED BY: MENDEZ Heidy Dudleylin6370 [address] Roadblin [place] [id number] Immature granulocytes/100 WBC (Bld) 0 % Normal [facility]; [facility] Work Phone: Comment on above: PATIENT WAS FASTINGP ERFORMED BY: [facility]Core[facility] [facility]in [place] [id number] Lymphocytes (Bld) [#/Vol] 2.2 10*3/uL Normal 0.7-3.1 [facility]; [facility] Work Phone: Comment on above: PATIENT WAS FASTINGP ERFORMED BY: MENDEZ [place] [id number] [facility] [id number] Lymphocytes/100 WBC (Bld) 33 % Normal [facility]; [facility] Work Phone: Comment on above: PATIENT WAS FASTINGP ERFORMED BY: [facility] Clare[address] [facility] [id number] MCH (RBC) [Entitic mass] 27.9 pg Normal 26.6-33.0 [facility]; [facility] Work Phone: Comment on above: PATIENT WAS FASTINGP ERFORMED BY: [place] [id number] [facility] [id number] MCHC (RBC) [Mass/Vol] 33.1 g/dL Normal 31.5-35.7 [facility]; [facility] Work Phone: Comment on above: PATIENT WAS FASTINGP ERFORMED BY: [facility]Core[facility] [facility] Hospitalblin [place] [id number] MCV (RBC) [Entitic vol] 85 fL Normal 79-97 [facility]; [facility] Work Phone: Comment on above: PATIENT WAS FASTINGP ERFORMED BY: [facility]Core[facility] [facility] Hospitalblin [place] [id number] Monocytes (Bld) [#/Vol] 0.4 10*3/uL Normal 0.1-0.9 [facility]; [facility] Work Phone: Comment on above: PATIENT WAS FASTINGP ERFORMED BY: MENDEZ Carolegabbie Ekznbn2811 [address] RoadDublin [place] [id number] Monocytes/100 WBC (Bld) 6 % Normal [facility]; [facility] Work Phone: Comment on above: PATIENT WAS FASTINGP ERFORMED BY: MENDEZ [facility] Jlkcvx0005 [address] RoadDublin [place] [id number] Neutrophils (Bld) [#/Vol] 3.9 10*3/uL Normal 1.4-7.0 [facility]; [facility] Work Phone: Comment on above: PATIENT WAS FASTINGP ERFORMED BY: MENDEZ Dudleylin6370 [address] RoadDublin [place] [id number] Neutrophils/100 WBC (Bld) 59 % Normal [facility]; [facility] Work Phone: Comment on above: PATIENT WAS FASTINGP ERFORMED BY: MENDEZ Labbrittany Wokzkb8058 [address] RoadDublin [place] [id number] Platelets (Bld) [#/Vol] 281 10*3/uL Normal 150-450 [facility]; [facility] Work Phone: Comment on above: PATIENT WAS FASTINGP ERFORMED BY: MENDEZ Labbrittany Vfjbtv4945 [address] RoadDublin [place] [id number] RBC (Bld) [#/Vol] 5.66 10*6/uL Normal 4.14-5.80 Compr ehensive Internal Medicine; [facility] Work Phone: Comment on above: PATIENT WAS FASTINGP ERFORMED BY: MENDEZ [facility] Zbncli7619 [address] RoadDublin [place] [id number] WBC (Bld) [#/Vol] 6.6 10*3/uL Normal 3.4-10.8 Compre hensive Internal Medicine; [facility] Work Phone: Comment on above: PATIENT WAS FASTINGP ERFORMED BY: MENDEZ Labgabbie DudleyWugmik3136 [address] Roadblin [place] [id number] HGB A1C ([id number])Ordered By: S ystem Hydraulic Hammer Operator on 07-04-2022 HbA1c (Bld) [Mass fraction] 6.8 % Abnormal 4.8-5.6 [facility]; [facility] Work Phone: Comment on above: . Prediabetes: 5.7 - 6.4 Diabetes: >6.4 Glycemic control for adults with diabetes: <7.0 PATIENT WAS FASTINGP ERFORMED BY: MENDEZ Labgabbie DudleyQtacnq8903 Al[address] RoadDublin [place] [id number] LIPID PANEL ([id number])Ordered B y: Manager Talent Management on 07-04-2022 Cholesterol [Mass/Vol] 178 mg/dL Normal 100-199 [facility]; [facility] Work Phone: Comment on above: PATIENT WAS FASTINGP ERFORMED BY: MENDEZ Dudleylin[address] [facility]in [place] [id number] Cholesterol in HDL [Mass/Vol] 33 mg/dL Abnormal [facility]; [facility] Work Phone: Comment on above: PATIENT WAS FASTINGP ERFORMED BY: MENDEZ Labgabbie DudleyCnkuyi[address] [facility] Hospitalblin [place] [id number] Triglyceride [Mass/Vol] 357 mg/dL Abnormal 0-149 [facility]; [facility] Work Phone: Comment on above: PATIENT WAS FASTINGP ERFORMED BY: MENDEZ Labgabbie DudleyOwaszz70[address] [facility] Hospitalin [place] [id number] LIPID PANEL (03706) 59 mg/dL Abnormal 5-40 Compr ehensive Internal Medicine; [facility] Work Phone: Comment on above: PATIENT WAS FASTINGP ERFORMED BY: MENDEZ [facility] Ahdqcb[address] [facility] HospitalDublin [place] [id number] LIPID PANEL (96089) 86 mg/dL Normal 0-99 Compr ehensive Internal Medicine; [facility] Work Phone: Comment on above: PATIENT WAS FASTINGP ERFORMED BY: MENDEZ Labcomelyssa Itozez8982 Alonzo RoadAtrium Health [id number] LIPID PANEL (73932) 2.6 {ratio} Normal 0.0-3.6 [facility] Internal Medicine; [facility] Work Phone: Comment on above: LDL/HDL Ratio Men Wo men 1/2 Avg.Risk 1.0 1.5 Avg.Risk 3.6 3.2 2X Avg.Risk 6.2 5.0 3X Avg.Risk 8.0 6.1 PATIENT WAS FASTINGP ERFORMED BY: MENDEZ Labcomelyssa Nkaops[address] [facility] [id number] METABOLIC PANEL, COMPREHENSI VE (01634)Ordered By: Manager Talent Management on 07-04-2022 Albumin [Mass/Vol] 4.7 g/dL Normal 3.8-4.9 [facility]; [facility] Work Phone: Comment on above: PATIENT WAS FASTINGP ERFORMED BY: MENDEZ Labgabbie DudleyEevqau[address] [id number] Albumin/Globulin [Mass ratio] 1.6 {ratio} Normal 1.2-2.2 [facility]; [facility] Work Phone: Comment on above: PATIENT WAS FASTINGP ERFORMED BY: MENDEZ Labgabbie Bmwmsx[address] [facility] [id number] ALP [Catalytic activity/Vol] 74 U/L Normal 44-121 [facility]; [facility] Work Phone: Comment on above: PATIENT WAS FASTINGP ERFORMED BY: MENDEZ Labcomelyssa Cefejr[address] [facility]in [place] [id number] ALT [Catalytic activity/Vol] 31 U/L Normal 0-44 [facility]; [facility] Work Phone: Comment on above: PATIENT WAS FASTINGP ERFORMED BY: MENDEZ Labcomelyssa Eanmds5325 [address] [facility] [id number] AST [Catalytic activity/Vol] 24 U/L Normal 0-40 [facility]; [facility] Work Phone: Comment on above: PATIENT WAS FASTINGP ERFORMED BY: MENDEZ Labcomelyssa Wgicdn72[address] [facility] [id number] Bilirubin [Mass/Vol] 0.4 mg/dL Normal 0.0-1.2 Comp [facility] hospitalensive Internal [facility]; [facility] Work Phone: Comment on above: PATIENT WAS FASTINGP ERFORMED BY: MENDEZ Labexcels[facility] Gxuihy1532 Al[address] Roadblin [place] [id number] Calcium [Mass/Vol] 10.3 mg/dL Abnormal 8.7-10.2 [facility]; [facility] Work Phone: Comment on above: PATIENT WAS FASTINGP ERFORMED BY: MENDEZ LabCore[facility] [facility] [id number] Chloride [Moles/Vol] 101 mmol/L Normal 96-106 [facility] Centerensive [facility]; [facility] Work Phone: Comment on above: PATIENT WAS FASTINGP ERFORMED BY: MENDEZ Lamexcelsior [facility] Pcmcqm5478 [address] [facility] [id number] CO2 [Moles/Vol] 23 mmol/L Normal 20-29 [facility] Internal [facility]; [facility] Work Phone: Comment on above: PATIENT WAS FASTINGP ERFORMED BY: MENDEZ Labexcels[facility] Hwzkqq5946 [address] [id number] Creatinine [Mass/Vol] 0.82 mg/dL Normal 0.76-1.27 [facility]; [facility] Work Phone: Comment on above: PATIENT WAS FASTINGP ERFORMED BY: MENDEZ Labexcelsior [facility] Ufqpve[address] [id number] GFR/1.73 sq M.predicted among non-blacks MDRD (S/P/Bld) [Vol rate/Area] 104 mL/min/{1.73_m2} Normal Comprehensmarlton rehabilitation hospital Internal Medicine; [facility] Work Phone: Comment on above: PATIENT WAS FASTINGP ERFORMED BY: MENDEZ [facility] Nktymy[address] [facility] [id number] Globulin (S) [Mass/Vol] 3.0 g/dL Normal 1.5-4.5 [facility]; [facility] Work Phone: Comment on above: PATIENT WAS FASTINGP ERFORMED BY: CB [facility] Ggvaaw9085 [address] RoadDublin [place] [id number] Glucose [Mass/Vol] 111 mg/dL Abnormal 70-99 [facility]; [facility] Work Phone: Comment on above: PATIENT WAS FASTINGP ERFORMED BY: CB [facility] Zfkwrv8761 [address] RoadDublin [place] [id number] Potassium [Moles/Vol] 5.2 mmol/L Normal 3.5-5.2 [facility]; [facility] Work Phone: Comment on above: PATIENT WAS FASTINGP ERFORMED BY: CB [facility] Ifdkqb8738 [address] RoadDublin [place] [id number] Protein [Mass/Vol] 7.7 g/dL Normal 6.0-8.5 [facility]; [facility] Work Phone: Comment on above: PATIENT WAS FASTINGP ERFORMED BY: CB [facility] Zhxsyx7488 [address] RoadDublin [place] [id number] Sodium [Moles/Vol] 139 mmol/L Normal 134-144 [facility]; [facility] Work Phone: Comment on above: PATIENT WAS FASTINGP ERFORMED BY: CB [facility] Srbjye4234 [address] RoadDublin [place] [id number] Urea nitrogen [Mass/Vol] 11 mg/dL Normal 6-24 [facility]; [facility] Work Phone: Comment on above: PATIENT WAS FASTINGP ERFORMED BY: CB [facility] Ijpnpx7115 [address] RoadDublin [place] [id number] Urea nitrogen/Creatinine [Mass ratio] 13 mg/mg Normal 9-20 [facility]; [facility] Work Phone: Comment on above: PATIENT WAS FASTINGP ERFORMED BY: CB [facility] Tllvkc8514 [address] RoadDublin [place] [id number] METABOLIC PANEL, COMPREHENSIVE (77785) 104 mL/min/1.73 Normal [facility]; [facility] Work Phone: MICROALBUMINOrdered By: Syst em Hydraulic Hammer Operator on 07-04-2022 Albumin DL <= 20 mg/L (U) [Mass/Vol] 12.9 ug/mL Normal Comprehensiv e Internal Medicine; [facility] Work Phone: Comment on above: PATIENT WAS FASTINGP ERFORMED BY: MENDEZ 1-800-DOCTORS70 [address] [place] [id number] Albumin/Creatinine (U) [Mass ratio] 10 {mg/g_creat} Normal 0-29 [facility]; [facility] Work Phone: Comment on above: Normal: 0 - 29 Moder ately increased: 30 - 300 Severely increased: >300 PATIENT WAS FASTINGP ERFORMED BY: MENDEZ 1-800-DOCTORS70 [address] [place] [id number] Creatinine (U) [Mass/Vol] 125.1 mg/dL Normal [facility]; [facility] Work Phone: Comment on above: PATIENT WAS FASTINGP ERFORMED BY: MENDEZ Arrayent6[address] [place] [id number] TSH (THYROID STIMULATING HOR BRYN) ([id number])Ordered By: Manager Talent Management on 07-04-2022 TSH Qn 2.630 {uIU/mL} Normal 0.450-4.50 0 [facility]; [facility] Work Phone: Comment on above: PATIENT WAS FASTINGP ERFORMED BY: MENDEZ 1-800-DOCTORS70 [address] WashioAtrium Health Union [id number] HGB A1C (77730)Ordered By: S ystem Hydraulic Hammer Operator on 04-11-2022 HbA1c (Bld) [Mass fraction] 8.0 % Abnormal 4.8-5.6 [facility]; [facility] Work Phone: Comment on above: . Prediabetes: 5.7 - 6.4 Diabetes: >6.4 Glycemic control for adults with diabetes: <7.0 PATIENT WAS FASTINGP ERFORMED BY: [employer] Opjver1331 [address] Washioin [place] [id number] Blood Glucose , Office ([phone])Ordered By: Marshall Rosenthal on 01-03-2022 Glucose Glucometer (BldC) [Moles/Vol] 143 1 Normal [facility]; [facility] Work Phone: HgA1C , Office (43612)Ordere d By: Marshall Rosenthal on 01-03-2022 HbA1c (Bld) [Mass fraction] 6.8 % Normal 4.6 - 7.1 [facility]; [facility] Work Phone: Blood Glucose , Office ([phone])Ordered By: Angelica Meneses on 09-27-2021 Glucose Glucometer (BldC) [Moles/Vol] 136 1 Normal [facility]; [facility] Work Phone: CALCIFIDIOL (17128) VIT D 25 Ordered By: Manager Talent Management on 09-27-2021 25-hydroxyvitamin D [Mass/Vol] 36.5 ng/mL Normal 30.0-100.0 [facility]; [facility] Work Phone: Comment on above: Vitamin D deficiency has been defined by the [place] of[place]icine and an Endocrine Society practice guideline as alevel of serum 25-OH vitamin D less than 20 ng/mL (1,2).The Endocrine Society went on to further define vitamin Dinsufficiency as a level between 21 and 29 ng/mL (2).1. IOM ([place] of Medicine). 2010. Dietary reference intakes for calcium and D. [place]: The National Academies Press.2. Magno MF, Do MILES, Jos PRATER, et al. Evaluation, treatment, and prevention of vitamin D deficiency: an Endocrine Society clinical practice guideline. JCEM. 2010; 96(7):1911-30. PATIENT WAS FASTINGP ERFORMED BY: LabcoThe [facility] Hospital [facility] T[facility] FallsRdvfux5[address] [id number] CBC W/AUTO DIFF WBC ([id number])O rdered By: Manager Talent Management on 09-27-2021 Basophils (Bld) [#/Vol] 0.0 10*3/uL Normal 0.0-0.2 [facility]; [facility] Work Phone: Comment on above: PATIENT WAS FASTINGP ERFORMED BY: Caroleexcelsior [facility] Cjyput3457 [address] [facility]in [place] [id number] Basophils/100 WBC (Bld) 1 % Normal [facility]; [facility] Work Phone: Comment on above: PATIENT WAS FASTINGP ERFORMED BY: Zaynab Rxyifa1907 Al[address]zo RoadAtrium Health Wake [facility] Medical Centerin [place] [id number] Eosinophils (Bld) [#/Vol] 0.2 10*3/uL Normal 0.0-0.4 [facility]; [facility] Work Phone: Comment on above: PATIENT WAS FASTINGP ERFORMED BY: Labexcelsior springs [facility] center Ujejdy4291 Al[address]zo RoadAtrium Health [facility] Centerin [place] [id number] Eosinophils/100 WBC (Bld) 3 % Normal [facility]; [facility] Work Phone: Comment on above: PATIENT WAS FASTINGP ERFORMED BY: [facility] Hdvcrx6[address] [id number] Erythrocyte distribution width (RBC) [Ratio] 13.4 % Normal 11.6-15.4 [facility]; [facility] Work Phone: Comment on above: PATIENT WAS FASTINGP ERFORMED BY: Caroleexcels[facility] Zalfrf[address]139 [address] [facility] [id number] Hematocrit (Bld) [Volume fraction] 45.1 % Normal 37.5-51.0 [facility]; [facility] Work Phone: Comment on above: PATIENT WAS FASTINGP ERFORMED BY: [facility]Corewell [facility] [facility] [id number] Hemoglobin (Bld) [Mass/Vol] 15.1 g/dL Normal 13.0-17.7 [facility]; [facility] Work Phone: Comment on above: PATIENT WAS FASTINGP ERFORMED BY: Caroleexcelsior springs [facility] center Vavloj7284 [address] [facility] [id number] Immature granulocytes (Bld) [#/Vol] 0.0 10*3/uL Normal 0.0-0.1 [facility]; [facility] Work Phone: Comment on above: PATIENT WAS FASTINGP ERFORMED BY: LabCorewell [facility] [facility] Hospitalbl[facility] [place] [id number] Immature granulocytes/100 WBC (Bld) 0 % Normal [facility]; [facility] Work Phone: Comment on above: PATIENT WAS FASTINGP ERFORMED BY: LabCorewell [facility] [facility] Hospitalbl[facility] [place] [id number] Lymphocytes (Bld) [#/Vol] 1.7 10*3/uL Normal 0.7-3.1 [facility]; [facility] Work Phone: Comment on above: PATIENT WAS FASTINGP ERFORMED BY: [facility]Core[facility] [facility] Hospitalbl[facility] [place] [id number] Lymphocytes/100 WBC (Bld) 31 % Normal [facility]; [facility] Work Phone: Comment on above: PATIENT WAS FASTINGP ERFORMED BY: [facility] [facility]in [place] [id number] MCH (RBC) [Entitic mass] 28.2 pg Normal 26.6-33.0 [facility]; [facility] Work Phone: Comment on above: PATIENT WAS FASTINGP ERFORMED BY: [facility]Core[facility] [facility] Hospitalblin [place] [id number] MCHC (RBC) [Mass/Vol] 33.5 g/dL Normal 31.5-35.7 [facility]; [facility] Work Phone: Comment on above: PATIENT WAS FASTINGP ERFORMED BY: [facility]Core[facility] [facility] Hospitalblin [place] [id number] MCV (RBC) [Entitic vol] 84 fL Normal 79-97 [facility]; [facility] Work Phone: Comment on above: PATIENT WAS FASTINGP ERFORMED BY: LabCore[facility]6[address] [facility] HospitalDublin [place] [id number] Monocytes (Bld) [#/Vol] 0.4 10*3/uL Normal 0.1-0.9 [facility]; [facility] Work Phone: Comment on above: PATIENT WAS FASTINGP ERFORMED BY: CB [facility] Bkzqkz3698 [address]zo RoadDublin [place] [id number] Monocytes/100 WBC (Bld) 8 % Normal [facility]; [facility] Work Phone: Comment on above: PATIENT WAS FASTINGP ERFORMED BY: CB [facility] Yslrvh1702 [address] RoadDublin [place] [id number] Neutrophils (Bld) [#/Vol] 3.1 10*3/uL Normal 1.4-7.0 [facility]; [facility] Work Phone: Comment on above: PATIENT WAS FASTINGP ERFORMED BY: CB [facility] Fjzlee6548 [address] RoadDublin [place] [id number] Neutrophils/100 WBC (Bld) 57 % Normal [facility]; [facility] Work Phone: Comment on above: PATIENT WAS FASTINGP ERFORMED BY: CB [facility] Ommoeh5053 [address] RoadDublin [place] [id number] Platelets (Bld) [#/Vol] 273 10*3/uL Normal 150-450 [facility]; [facility] Work Phone: Comment on above: PATIENT WAS FASTINGP ERFORMED BY: CB [facility] Mwnimn6591 [address] RoadDublin [place] [id number] RBC (Bld) [#/Vol] 5.35 10*6/uL Normal 4.14-5.80 Compr ehensive Internal Medicine; [facility] Work Phone: Comment on above: PATIENT WAS FASTINGP ERFORMED BY: CB [facility] Eukijr5140 [address] RoadDublin [place] [id number] WBC (Bld) [#/Vol] 5.5 10*3/uL Normal 3.4-10.8 Compre hensriver[facility] Internal [facility]; [facility] Work Phone: Comment on above: PATIENT WAS FASTINGP ERFORMED BY: CB [facility] Lavzwz0494 [address] RoadDublin [place] [id number] HgA1C , Office ([id number])Ordere d By: Angelica Meneses on 09-27-2021 HbA1c (Bld) [Mass fraction] 6.4 % Normal 4.6 - 7.1 [facility]; [facility] Work Phone: LIPID PANEL (29794)Ordered B y: Manager Talent Management on 09-27-2021 Cholesterol [Mass/Vol] 192 mg/dL Normal 100-199 [facility]; [facility] Work Phone: Comment on above: PATIENT WAS FASTINGP ERFORMED BY: CB [facility] Vjjpyj5573 [address] RoadDublin [place] [id number] Cholesterol in HDL [Mass/Vol] 40 mg/dL Normal [facility]; [facility] Work Phone: Comment on above: PATIENT WAS FASTINGP ERFORMED BY: CB [facility] Puykml1567 [address] RoadDublin [place] [id number] Triglyceride [Mass/Vol] 203 mg/dL Abnormal 0-149 [facility]; [facility] Work Phone: Comment on above: PATIENT WAS FASTINGP ERFORMED BY: CB [facility] Gsxylg6071 [address] RoadDublin [place] [id number] LIPID PANEL (96334) 36 mg/dL Normal 5-40 Compr ensive Internal Medicine; [facility] Work Phone: Comment on above: PATIENT WAS FASTINGP ERFORMED BY: CB [facility] Axzojx8476 [address] RoadDublin [place] [id number] LIPID PANEL (76978) 116 mg/dL Abnormal 0-99 Compr ensive Internal Medicine; [facility] Work Phone: Comment on above: PATIENT WAS FASTINGP ERFORMED BY: CB [facility] Gfwyuh3058 [address] RoadDublin [place] [id number] LIPID PANEL (37419) 2.9 {ratio} Normal 0.0-3.6 [facility]erens[facility]; [facility] Work Phone: Comment on above: LDL/HDL Ratio Men Wo men 1/2 Avg.Risk 1.0 1.5 Avg.Risk 3.6 3.2 2X Avg.Risk 6.2 5.0 3X Avg.Risk 8.0 6.1 PATIENT WAS FASTINGP ERFORMED BY: CB [facility] Gmxret8251 [address] RoadDublin [place] [id number] METABOLIC PANEL, COMPREHENSI VE (55526)Ordered By: Manager Talent Management on 09-27-2021 Albumin [Mass/Vol] 4.7 g/dL Normal 3.8-4.9 [facility]; [facility] Work Phone: Comment on above: PATIENT WAS FASTINGP ERFORMED BY: CB [facility] Qtmkpa1594 [address] RoadDublin [place] [id number] Albumin/Globulin [Mass ratio] 1.7 {ratio} Normal 1.2-2.2 [facility]; [facility] Work Phone: Comment on above: PATIENT WAS FASTINGP ERFORMED BY: CB [facility] Alhiry11[address] RoadDublin [place] [id number] ALP [Catalytic activity/Vol] 69 U/L Normal 44-121 [facility]; [facility] Work Phone: Comment on above: PATIENT WAS FASTINGP ERFORMED BY: CB [facility] Adkiwy6314 [address] RoadDublin [place] [id number] ALT [Catalytic activity/Vol] 24 U/L Normal 0-44 [facility]; [facility] Work Phone: Comment on above: PATIENT WAS FASTINGP ERFORMED BY: CB [facility] Bdlhvu7308 [address] RoadDublin [place] [id number] AST [Catalytic activity/Vol] 22 U/L Normal 0-40 [facility]; [facility] Work Phone: Comment on above: PATIENT WAS FASTINGP ERFORMED BY: CB [facility] Pfblsg7115 [address] RoadDublin [place] [id number] Bilirubin [Mass/Vol] 0.6 mg/dL Normal 0.0-1.2 [facility] Internal [facility]; [facility] Work Phone: Comment on above: PATIENT WAS FASTINGP ERFORMED BY: CB [facility] Ymowjs1187 [address] RoadDublin [place] [id number] Calcium [Mass/Vol] 9.6 mg/dL Normal 8.7-10.2 [facility]; [facility] Work Phone: Comment on above: PATIENT WAS FASTINGP ERFORMED BY: MENDEZ Labcomelyssa DudleyNnvpso1581 Al[address] Roadblin [place] [id number] Chloride [Moles/Vol] 102 mmol/L Normal 96-106 Comp rehensive Internal Medicine; [facility] Work Phone: Comment on above: PATIENT WAS FASTINGP ERFORMED BY: MENDEZ [facility] Ielyuf0079 [address] [facility] [place] [id number] CO2 [Moles/Vol] 23 mmol/L Normal 20-29 [facility]; [facility] Work Phone: Comment on above: PATIENT WAS FASTINGP ERFORMED BY: MENDEZ Worthy Upgjhf8373 [address] [facility] [id number] Creatinine [Mass/Vol] 0.96 mg/dL Normal 0.76-1.27 [facility]; [facility] Work Phone: Comment on above: PATIENT WAS FASTINGP ERFORMED BY: MENDEZ Worthy Kciaeq6827 [facility] [id number] GFR/1.73 sq M.predicted among non-blacks MDRD (S/P/Bld) [Vol rate/Area] 95 mL/min/{1.73_m2} Normal Comprehensiv e Internal Medicine; [facility] Work Phone: Comment on above: PATIENT WAS FASTINGP ERFORMED BY: MENDEZ [facility] Nsshcb3706 [address] [facility] [id number] Globulin (S) [Mass/Vol] 2.8 g/dL Normal 1.5-4.5 [facility]; [facility] Work Phone: Comment on above: PATIENT WAS FASTINGP ERFORMED BY: MENDEZ [facility] Orkuui3130 [address] [facility] [place] [id number] Glucose [Mass/Vol] 125 mg/dL Abnormal 65-99 [facility]; [facility] Work Phone: Comment on above: PATIENT WAS FASTINGP ERFORMED BY: MENDEZ [facility] Nlmfjf5800 [address] RoadDublin [place] [id number] Potassium [Moles/Vol] 4.5 mmol/L Normal 3.5-5.2 [facility]; [facility] Work Phone: Comment on above: PATIENT WAS FASTINGP ERFORMED BY: MENDEZ [facility] Vqepjz5927 [address] Roadblin [place] [id number] Protein [Mass/Vol] 7.5 g/dL Normal 6.0-8.5 [facility] Internal Medicine; [facility] Work Phone: Comment on above: PATIENT WAS FASTINGP ERFORMED BY: MENDEZ [facility] Zmfudd1894 [address] Roadblin [place] [id number] Sodium [Moles/Vol] 140 mmol/L Normal 134-144 [facility] Internal Medicine; [facility] Work Phone: Comment on above: PATIENT WAS FASTINGP ERFORMED BY: MENDEZ [facility] Kbxncb0946 [address] [facility] [id number] Urea nitrogen [Mass/Vol] 15 mg/dL Normal 6-24 [facility]; [facility] Work Phone: Comment on above: PATIENT WAS FASTINGP ERFORMED BY: MENDEZ [facility] Tcuoli5809 [address] [facility] [place] [id number] Urea nitrogen/Creatinine [Mass ratio] 16 mg/mg Normal 9-20 [facility]; [facility] Work Phone: Comment on above: PATIENT WAS FASTINGP ERFORMED BY: MENDEZ [facility] Hemqqc3350 [address] [facility] [place] [id number] METABOLIC PANEL, COMPREHENSIVE (94132) 95 mL/min/1.73 Normal [facility]; [facility] Work Phone: MICROALBUMINOrdered By: Syst em Hydraulic Hammer Operator on 09-27-2021 Albumin DL <= 20 mg/L (U) [Mass/Vol] 20.8 ug/mL Normal Comprehensiv e Internal Medicine; [facility] Work Phone: Comment on above: PATIENT WAS FASTINGP ERFORMED BY: MENDEZ [facility] Bacflj5236 [address] [facility] [id number] Albumin/Creatinine (U) [Mass ratio] 10 {mg/g_creat} Normal 0-29 [facility]; [facility] Work Phone: Comment on above: Normal: 0 - 29 Moder ately increased: 30 - 300 Severely increased: >300 PATIENT WAS FASTINGP ERFORMED BY: MarketShare6370 [place] PostAtrium Health Union [id number] Creatinine (U) [Mass/Vol] 208.7 mg/dL Normal [facility]; [facility] Work Phone: Comment on above: PATIENT WAS FASTINGP ERFORMED BY: MarketShare6370 GameGeneticsAtrium Health [id number] PSA (PROSTATE SPECIFIC ANTIG EN) (V76.44)Ordered By: Manager Talent Management on 09-27-2021 Prostate specific Ag [Mass/Vol] 0.5 ng/mL Normal 0.0-4.0 [facility]; [facility] Work Phone: Comment on above: [employer] ECLIA methodol ogy. .According to the [place] [employer], Serum PSA shoulddecrease and remain at undetectable levels after radicalprostatectomy. The AUA defines biochemical recurrence as an initialPSA value 0.2 ng/mL or greater followed by a subsequent confirmatoryPSA value 0.2 ng/mL or greater.Values obtained with different assay methods or kits cannot be usedinterchangeably. Results cannot be interpreted as absolute evidenceof the presence or absence of malignant disease. PATIENT WAS FASTINGP ERFORMED BY: MarketShare6370 GameGeneticsAtrium Health [id number] TSH ([id number])Ordered By: [employer] m Hydraulic Hammer Operator on 09-27-2021 TSH Qn 2.430 {uIU/mL} Normal 0.450-4.50 0 [facility]; [facility] Work Phone: Comment on above: PATIENT WAS FASTINGP ERFORMED BY: MarketShare6370 [facility]zoMin[facility] [id number] URINALYSIS, W/ MICRO (50214) Ordered By: Manager Talent Management on 09-27-2021 Appearance (U) Clear Normal Comprehens tyron Internal Medicine; [facility] Work Phone: Comment on above: PATIENT WAS FASTINGP ERFORMED BY: MENDEZ Caceres6370 [address] RoadDublin [place] [id number] Bilirubin Ql (U) Negative Normal Comprehe nsive Internal Medicine; [facility] Work Phone: Comment on above: PATIENT WAS FASTINGP ERFORMED BY: MENDEZ Caceres6370 [address] RoadDublin [place] [id number] Color (U) Yellow Normal [facility]; [facility] Work Phone: Comment on above: PATIENT WAS FASTINGP ERFORMED BY: MENDEZ Samano70 [address] RoadDublin [place] [id number] Glucose Ql (U) Negative Normal Comprehens tyron Internal Medicine; [facility] Work Phone: Comment on above: PATIENT WAS FASTINGP ERFORMED BY: MENEDZ Samano70 [address] [facility]in [place] [id number] Hemoglobin Ql (U) Negative Normal Compreh ensive Internal Medicine; [facility] Work Phone: Comment on above: PATIENT WAS FASTINGP ERFORMED BY: MENDEZ Caceres6370 [address] [facility]bl[facility] [place] [id number] Ketones Ql (U) Negative Normal Comprehens tyron Internal Medicine; [facility] Work Phone: Comment on above: PATIENT WAS FASTINGP ERFORMED BY: MENDEZ Caceres6370 [address] [facility] [place] [id number] Leukocyte esterase Test strip Ql (U) Negative Normal [facility]; [facility] Work Phone: Comment on above: PATIENT WAS FASTINGP ERFORMED BY: MENDEZ Dudleylin6370 [address] [facility] HospitalD[place] [id number] Microscopic observation LM Nom (Urine sed) MICRON Normal [facility]; [facility] Work Phone: Comment on above: Microscopic follows if indicated. PATIENT WAS FASTINGP ERFORMED BY: MENDEZ Dudleylin6370 [address] RoadDublin [place] [id number] Microscopic observation LM Nom (Urine sed) See below: Normal [facility]; [facility] Work Phone: Comment on above: Microscopic was giovanni cated and was performed. PATIENT WAS FASTINGP ERFORMED BY: [facility] Lcdlmn0650 [address] RoadDublin [place] [id number] Nitrite Ql (U) Negative Normal Comprehens tyron Internal Medicine; [facility] Work Phone: Comment on above: PATIENT WAS FASTINGP ERFORMED BY: [facility] Rfoeph3303 [address] [facility]in [place] [id number] pH (U) 5.5 [pH] Normal 5.0-7.5 [facility]; [facility] Work Phone: Comment on above: PATIENT WAS FASTINGP ERFORMED BY: [facility] Fcadnv3079 [address] Roadblin [place] [id number] Protein Ql (U) Trace Normal Comprehens tyron Internal Medicine; [facility] Work Phone: Comment on above: PATIENT WAS FASTINGP ERFORMED BY: [facility] Mhktsy7300 [facility]in [place] [id number] Specific gravity (U) [Rel density] 1.028 1 Normal 1.005-1.03 0 [facility]; [facility] Work Phone: Comment on above: PATIENT WAS FASTINGP ERFORMED BY: [facility] Lrnwbb7385 [facility] [place] [id number] Urobilinogen (U) [Mass/Vol] 0.2 mg/dL Normal 0.2-1.0 [facility]; [facility] Work Phone: Comment on above: PATIENT WAS FASTINGP ERFORMED BY: [facility] Nxeitr9240 [address] [facility]in [place] [id number] Blood Glucose , Office ([phone])Ordered By: Angelica Meneses on 05-24-2021 Glucose Glucometer (BldC) [Moles/Vol] 174 1 Normal [facility]; [facility] Work Phone: HgA1C , Office ([phone])Ordere d By: Angelica Meneses on 05-24-2021 HbA1c (Bld) [Mass fraction] 6.3 % Normal 4.6 - 7.1 [facility]; [facility] Work Phone: Blood Glucose , Office ([phone])Ordered By: Tamar Keane on 02-01-2021 Glucose Glucometer (BldC) [Moles/Vol] 104 1 Normal [facility]; [facility] Work Phone: HgA1C , Office ([phone])Ordere d By: Tamar Keane on 02-01-2021 HbA1c (Bld) [Mass fraction] 5.9 % Normal 4.6 - 7.1 [facility]; [facility] Work Phone: CALCIFIDIOL ([phone]) VIT D 25 Ordered By: Manager Talent Management on 01-18-2021 25-hydroxyvitamin D [Mass/Vol] 42.6 ng/mL Normal 30.0-100.0 [facility]; [facility] Work Phone: Comment on above: Vitamin D deficiency has been defined by the [place] of[place]icine and an Endocrine Society practice guideline as alevel of serum 25-OH vitamin D less than 20 ng/mL (1,2).The Endocrine Society went on to further define vitamin Dinsufficiency as a level between 21 and 29 ng/mL (2).1. IOM ([place] of Medicine). 2010. Dietary reference intakes for calcium and D. [place]: The National Academies Press.2. Magno MF, Do [place], Jos PRATER, et al. Evaluation, treatment, and prevention of vitamin D deficiency: an Endocrine Society clinical practice guideline. JCEM. 2010; 96(7):1911-30. PATIENT WAS FASTINGP ERFORMED BY: Madvenue Lzidxa1452 [facility] [id number] CBC W/AUTO DIFF WBC (86568)O rdered By: Manager Talent Management on 01-18-2021 Basophils (Bld) [#/Vol] 0.0 10*3/uL Normal 0.0-0.2 [facility]; [facility] Work Phone: Comment on above: PATIENT WAS FASTINGP ERFORMED BY: Emergent Healthlin6370 [address] [facility]in [place] [id number] Basophils/100 WBC (Bld) 1 % Normal [facility]; [facility] Work Phone: Comment on above: PATIENT WAS FASTINGP ERFORMED BY: Zaynab Ivjooz1084 [address]zo RoadAtrium Health [facility] Centerin [place] [id number] Eosinophils (Bld) [#/Vol] 0.2 10*3/uL Normal 0.0-0.4 [facility]; [facility] Work Phone: Comment on above: PATIENT WAS FASTINGP ERFORMED BY: [facility] Xcicsh4206 Al[address]zo RoadAtrium Health [facility] Centerin [place] [id number] Eosinophils/100 WBC (Bld) 2 % Normal [facility]; [facility] Work Phone: Comment on above: PATIENT WAS FASTINGP ERFORMED BY: [facility] Oxlrko5771 [facility] [id number] Erythrocyte distribution width (RBC) [Ratio] 13.2 % Normal 11.6-15.4 [facility]; [facility] Work Phone: Comment on above: PATIENT WAS FASTINGP ERFORMED BY: [facility] Mlgwtw5276 [facility] [id number] Hematocrit (Bld) [Volume fraction] 44.2 % Normal 37.5-51.0 [facility]; [facility] Work Phone: Comment on above: PATIENT WAS FASTINGP ERFORMED BY: CaroleAndrew [place]ille [id number] [address] [facility] [id number] Hemoglobin (Bld) [Mass/Vol] 15.0 g/dL Normal 13.0-17.7 [facility]; [facility] Work Phone: Comment on above: PATIENT WAS FASTINGP ERFORMED BY: [facility] Jhoijz9056 [address] [facility] [id number] Immature granulocytes (Bld) [#/Vol] 0.0 10*3/uL Normal 0.0-0.1 [facility]; [facility] Work Phone: Comment on above: PATIENT WAS FASTINGP ERFORMED BY: [facility] Mtdqql2099 [address] [facility]in [place] [id number] Immature granulocytes/100 WBC (Bld) 0 % Normal [facility]; [facility] Work Phone: Comment on above: PATIENT WAS FASTINGP ERFORMED BY: [facility] Mjqarm0930 [address] [facility] [place] [id number] Lymphocytes (Bld) [#/Vol] 1.6 10*3/uL Normal 0.7-3.1 [facility]; [facility] Work Phone: Comment on above: PATIENT WAS FASTINGP ERFORMED BY: [facility] Ynguic3309 [address] [facility]bl[facility] [place] [id number] Lymphocytes/100 WBC (Bld) 20 % Normal [facility]; [facility] Work Phone: Comment on above: PATIENT WAS FASTINGP ERFORMED BY: [place] [id number] [facility] [id number] MCH (RBC) [Entitic mass] 28.9 pg Normal 26.6-33.0 [facility]; [facility] Work Phone: Comment on above: PATIENT WAS FASTINGP ERFORMED BY: [facility] Ybzjcr4449 [facility]in [place] [id number] MCHC (RBC) [Mass/Vol] 33.9 g/dL Normal 31.5-35.7 [facility]; [facility] Work Phone: Comment on above: PATIENT WAS FASTINGP ERFORMED BY: [facility]6370 [address] [facility] [place] [id number] MCV (RBC) [Entitic vol] 85 fL Normal 79-97 [facility]; [facility] Work Phone: Comment on above: PATIENT WAS FASTINGP ERFORMED BY: CaroleHealthsource [place]6[address] [facility] Hospitalblin [place] [id number] Monocytes (Bld) [#/Vol] 0.5 10*3/uL Normal 0.1-0.9 [facility]; [facility] Work Phone: Comment on above: PATIENT WAS FASTINGP ERFORMED BY: MENDEZ [facility] Jotlow1078 [address] RoadDublin [place] [id number] Monocytes/100 WBC (Bld) 7 % Normal [facility]; [facility] Work Phone: Comment on above: PATIENT WAS FASTINGP ERFORMED BY: MENDEZ [facility] Uhhulw6445 [address] RoadDublin [place] [id number] Neutrophils (Bld) [#/Vol] 5.5 10*3/uL Normal 1.4-7.0 [facility]; [facility] Work Phone: Comment on above: PATIENT WAS FASTINGP ERFORMED BY: MENDEZ [facility] Cildfc2310 [address] RoadDublin [place] [id number] Neutrophils/100 WBC (Bld) 70 % Normal [facility]; [facility] Work Phone: Comment on above: PATIENT WAS FASTINGP ERFORMED BY: MENDEZ [facility] Altdlu0420 [address] RoadDublin [place] [id number] Platelets (Bld) [#/Vol] 289 10*3/uL Normal 150-450 [facility]; [facility] Work Phone: Comment on above: PATIENT WAS FASTINGP ERFORMED BY: MENDEZ [facility] Zoktdz5978 [address] RoadDublin [place] [id number] RBC (Bld) [#/Vol] 5.19 10*6/uL Normal 4.14-5.80 Compr ehensive Internal Medicine; [facility] Work Phone: Comment on above: PATIENT WAS FASTINGP ERFORMED BY: CB [facility] Accbqu0541 [address] RoadDublin [place] [id number] WBC (Bld) [#/Vol] 7.9 10*3/uL Normal 3.4-10.8 Compre [facility] Internal [facility]; [facility] Work Phone: Comment on above: PATIENT WAS FASTINGP ERFORMED BY: CB [facility] Wjgkys7434 [address] RoadDublin [place] [id number] LIPID PANEL (46732)Ordered B y: Manager Talent Management on 01-18-2021 Cholesterol [Mass/Vol] 198 mg/dL Normal 100-199 [facility]; [facility] Work Phone: Comment on above: PATIENT WAS FASTINGP ERFORMED BY: MENDEZ LabComelyssa Jwmaqe6773 [address] Roadblin [place] [id number] Cholesterol in HDL [Mass/Vol] 46 mg/dL Normal [facility]; [facility] Work Phone: Comment on above: PATIENT WAS FASTINGP ERFORMED BY: MENDEZ [facility] Mzdgkf9419 [address] Roadblin [place] [id number] Triglyceride [Mass/Vol] 147 mg/dL Normal 0-149 [facility]; [facility] Work Phone: Comment on above: PATIENT WAS FASTINGP ERFORMED BY: MENDEZ [facility] Tkkcmh3112 [address]zo RoadDublin [place] [id number] LIPID PANEL (15478) 26 mg/dL Normal 5-40 [facility]ensive Internal Medicine; [facility] Work Phone: Comment on above: PATIENT WAS FASTINGP ERFORMED BY: MENDEZ [facility] Uwtehx3122 [address] RoadDublin [place] [id number] LIPID PANEL (84563) 126 mg/dL Abnormal 0-99 [facility]ensive Internal Medicine; [facility] Work Phone: Comment on above: PATIENT WAS FASTINGP ERFORMED BY: MENDEZ [facility] Noqgve5844 [address] [facility] Hospitalbl[facility] [place] [id number] LIPID PANEL (61641) 2.7 {ratio} Normal 0.0-3.6 [facility] Centerensive Internal [facility]; [facility] Work Phone: Comment on above: LDL/HDL Ratio Men Wo men 1/2 Avg.Risk 1.0 1.5 Avg.Risk 3.6 3.2 2X Avg.Risk 6.2 5.0 3X Avg.Risk 8.0 6.1 PATIENT WAS FASTINGP ERFORMED BY: MENDEZ [facility] Ymegiv1190 [address] RoadDublin [place] [id number] METABOLIC PANEL, COMPREHENSI VE (66092)Ordered By: Manager Talent Management on 01-18-2021 Albumin [Mass/Vol] 4.6 g/dL Normal 3.8-4.9 [facility] Internal Medicine; [facility] Work Phone: Comment on above: PATIENT WAS FASTINGP ERFORMED BY: CB [facility] Iyyvne5693 [address] RoadDublin [place] [id number] Albumin/Globulin [Mass ratio] 1.5 {ratio} Normal 1.2-2.2 [facility]; [facility] Work Phone: Comment on above: PATIENT WAS FASTINGP ERFORMED BY: CB [facility] Xkutja4304 [address] RoadDublin [place] [id number] ALP [Catalytic activity/Vol] 58 U/L Normal 44-121 [facility]; [facility] Work Phone: Comment on above: Please note refere nce interval change PATIENT WAS FASTINGP ERFORMED BY: CB [facility] Wmiguu8332 [address] RoadDublin [place] [id number] ALT [Catalytic activity/Vol] 24 U/L Normal 0-44 [facility]; [facility] Work Phone: Comment on above: PATIENT WAS FASTINGP ERFORMED BY: CB [facility] Lztfjl5736 [address] RoadDublin [place] [id number] AST [Catalytic activity/Vol] 20 U/L Normal 0-40 [facility]; [facility] Work Phone: Comment on above: PATIENT WAS FASTINGP ERFORMED BY: CB [facility] Bkuudh8475 [address] RoadDublin [place] [id number] Bilirubin [Mass/Vol] 0.4 mg/dL Normal 0.0-1.2 [facility] Internal Medicine; [facility] Internal Medicine Work Phone: Comment on above: PATIENT WAS FASTINGP ERFORMED BY: CB [facility] Izuptd5362 [address] RoadDublin [place] [id number] Calcium [Mass/Vol] 9.5 mg/dL Normal 8.7-10.2 [facility] Internal Medicine; [facility] Work Phone: Comment on above: PATIENT WAS FASTINGP ERFORMED BY: CB [facility] Qoimsj9203 [address] RoadDublin [place] [id number] Chloride [Moles/Vol] 101 mmol/L Normal 96-106 Comp rehensive Internal Medicine; [facility] Work Phone: Comment on above: PATIENT WAS FASTINGP ERFORMED BY: MENDEZ Caceres6370 [facility]zoMineral [facility] [id number] CO2 [Moles/Vol] 23 mmol/L Normal 20-29 [facility]prehen [facility]; [facility] Work Phone: Comment on above: PATIENT WAS FASTINGP ERFORMED BY: MENDEZ Dudleylin6370 [facility] [id number] Creatinine [Mass/Vol] 0.88 mg/dL Normal 0.76-1.27 [facility]; [facility] Work Phone: Comment on above: PATIENT WAS FASTINGP ERFORMED BY: MENDEZ Caceres6370 [facility] [id number] GFR/1.73 sq M.predicted among blacks CKD-EPI (S/P/Bld) [Vol rate/Area] 113 mL/min/1.73 Normal [facility]; [facility] Work Phone: Comment on above: In accordance with recommendations from the NKF-ASN Task force, [facility] is in the process of updating its eGFR calculation to the 2020 CKD-EPI creatinine equation that estimates kidney function without a race variable. PATIENT WAS FASTINGP ERFORMED BY: Heidy Dudleylin6370 [facility] [id number] GFR/1.73 sq M.predicted among non-blacks CKD-EPI (S/P/Bld) [Vol rate/Area] 98 mL/min/1.73 Normal [facility]; [facility] Work Phone: Comment on above: PATIENT WAS FASTINGP ERFORMED BY: MENDEZ Caceres6370 [facility] [id number] Globulin (S) [Mass/Vol] 3.0 g/dL Normal 1.5-4.5 [facility]; [facility] Work Phone: Comment on above: PATIENT WAS FASTINGP ERFORMED BY: MENDEZ [facility] Vumxud1891 [address] [facility] [id number] Glucose [Mass/Vol] 116 mg/dL Abnormal 65-99 [facility] Internal Medicine; [facility] Work Phone: Comment on above: PATIENT WAS FASTINGP ERFORMED BY: MENDEZ [facility] Fcqdxj6253 [facility] [id number] Potassium [Moles/Vol] 4.3 mmol/L Normal 3.5-5.2 [facility]; [facility] Work Phone: Comment on above: PATIENT WAS FASTINGP ERFORMED BY: [facility] Vvfora4962 [address] [facility] [id number] Protein [Mass/Vol] 7.6 g/dL Normal 6.0-8.5 [facility]; [facility] Work Phone: Comment on above: PATIENT WAS FASTINGP ERFORMED BY: LabHealthsource [place]6[address] [facility] [id number] Sodium [Moles/Vol] 140 mmol/L Normal 134-144 [facility] Internal [facility]; [facility] Work Phone: Comment on above: PATIENT WAS FASTINGP ERFORMED BY: [facility] Sxhdbc5[address] [id number] Urea nitrogen [Mass/Vol] 11 mg/dL Normal 6-24 [facility]; [facility] Work Phone: Comment on above: PATIENT WAS FASTINGP ERFORMED BY: [facility] Zqlfsb2693 [address] [id number] Urea nitrogen/Creatinine [Mass ratio] 13 mg/mg Normal 9-20 [facility]; [facility] Work Phone: Comment on above: PATIENT WAS FASTINGP ERFORMED BY: [facility] Kyssol16[address] [id number] MICROALBUMINOrdered By: Syst em Hydraulic Hammer Operator on 01-18-2021 Albumin DL <= 20 mg/L (U) [Mass/Vol] 16.9 ug/mL Normal Comprehensiv e [facility]; [facility] Work Phone: Comment on above: PATIENT WAS FASTINGP ERFORMED BY: MENDEZ LabGabbie DudleyZisebc5338 Alonzo RoadDublin [place] [id number] Albumin/Creatinine (U) [Mass ratio] 9 {mg/g_creat} Normal 0-29 [facility]; [facility] Work Phone: Comment on above: Normal: 0 - 29 Moder ately increased: 30 - 300 Severely increased: >300 PATIENT WAS FASTINGP ERFORMED BY: MENDEZ LabComelyssa DudleyKjwsmi3373 Alonzo RoadDublin [place] [id number] Creatinine (U) [Mass/Vol] 188.8 mg/dL Normal [facility]; [facility] Work Phone: Comment on above: PATIENT WAS FASTINGP ERFORMED BY: MENDEZ LabGabbie DudleyNikuhj5881 Alonzo RoadDublin [place] [id number] TSH (97497)Ordered By: Thinknume m Hydraulic Hammer Operator on 01-18-2021 TSH Qn 3.600 {uIU/mL} Normal 0.450-4.50 0 [facility]; [facility] Work Phone: Comment on above: PATIENT WAS FASTINGP ERFORMED BY: MENDEZ LabGabbie DudleyArcqwd0076 Alonzo RoadDublin [place] [id number] URINALYSIS, W/ MICRO ([id number]) Ordered By: Manager Talent Management on 01-18-2021 Appearance (U) Clear Normal Comprehens tyron [facility]; [facility] Work Phone: Comment on above: PATIENT WAS FASTINGP ERFORMED BY: MENDEZ LabGabbie Ijttxl2909 Al[address] RoadDublin [place] [id number] Bilirubin Ql (U) Negative Normal Comprehe nsive [facility]; [facility] Work Phone: Comment on above: PATIENT WAS FASTINGP ERFORMED BY: MENDEZ LabComelyssa Xvnfik7470 [address] RoadDublin [place] [id number] Color (U) Yellow Normal [facility]; [facility] Work Phone: Comment on above: PATIENT WAS FASTINGP ERFORMED BY: MENDEZ [facility] Heeesu8692 [address]zo RoadDublin [place] [id number] Glucose Ql (U) Negative Normal Comprehens tyron [facility]; [facility] Work Phone: Comment on above: PATIENT WAS FASTINGP ERFORMED BY: MENDEZ Heidy Dudleylin6370 [address] RoadDublin [place] [id number] Hemoglobin Ql (U) Negative Normal Compreh ensive [facility]; [facility] Work Phone: Comment on above: PATIENT WAS FASTINGP ERFORMED BY: LabBrittany Jtguge3768 Al[address] Roadblin [place] [id number] Ketones Ql (U) Trace Abnormal Comprehens tyron [facility]; [facility] Work Phone: Comment on above: PATIENT WAS FASTINGP ERFORMED BY: MENDEZ Heidy Dudleylin[address] [facility] [place] [id number] Leukocyte esterase Test strip Ql (U) Negative Normal [facility]; [facility] Work Phone: Comment on above: PATIENT WAS FASTINGP ERFORMED BY: [facility] Cwzmie[address] [facility]in [place] [id number] Microscopic observation LM Nom (Urine sed) MICRON Normal [facility]; [facility] Work Phone: Comment on above: Microscopic follows if indicated. PATIENT WAS FASTINGP ERFORMED BY: Zaynab Uhnmfx4139 [address] RoadDublin [place] [id number] Microscopic observation LM Nom (Urine sed) See below: Normal [facility]; [facility] Work Phone: Comment on above: Microscopic was giovanni cated and was performed. PATIENT WAS FASTINGP ERFORMED BY: [facility]Co Rxwhlv2232 [address] RoadDublin [place] [id number] Nitrite Ql (U) Negative Normal Comprehens tyron [facility]; [facility] Work Phone: Comment on above: PATIENT WAS FASTINGP ERFORMED BY: [facility] Nazryt6129 [address] RoadDublin [place] [id number] pH (U) 5.5 [pH] Normal 5.0-7.5 [facility]; [facility] Work Phone: Comment on above: PATIENT WAS FASTINGP ERFORMED BY: CB [facility] Tqvsgk[address] People Operating TechnologyAtrium Health Wake Forest Baptist Medical Centerin [place] [id number] Protein Ql (U) Trace Normal Comprehens tyron [facility]; [facility] Work Phone: Comment on above: PATIENT WAS FASTINGP ERFORMED BY: [facility] Azkxxa[address] People Operating TechnologyAtrium Health [id number] Specific gravity (U) [Rel density] 1.021 1 Normal 1.005-1.03 0 [facility]; [facility] Work Phone: Comment on above: PATIENT WAS FASTINGP ERFORMED BY: CB [facility] Uizupo[address] People Operating TechnologyAtrium Health [id number] Urobilinogen (U) [Mass/Vol] 0.2 mg/dL Normal 0.2-1.0 [facility]; [facility] Work Phone: Comment on above: PATIENT WAS FASTINGP ERFORMED BY: [facility] Pgkrbd[address] People Operating TechnologyAtrium Health [id number] Blood Glucose , Office ([phone])Ordered By: Angelica Meneses on 10-26-2020 Glucose Glucometer (BldC) [Moles/Vol] 148 1 Normal [facility]; [facility] Work Phone: HgA1C , Office ([phone])Ordere d By: Angelica Meneses on 10-26-2020 HbA1c (Bld) [Mass fraction] 6.1 % Normal 4.6 - 7.1 [facility]; [facility] Work Phone: Blood Glucose , Office ([phone])Ordered By: Nancy Young on 07-20-2020 Glucose Glucometer (BldC) [Moles/Vol] 151 1 Normal [facility]; [facility] Work Phone: HgA1C , Office ([phone])Ordere d By: Nancy Young on 07-20-2020 HbA1c (Bld) [Mass fraction] 7.1 % Normal 4.6 - 7.1 [facility]; [facility] Work Phone: CALCIFIDIOL ([phone]) VIT D 25 Ordered By: Manager Talent Management on 07-06-2020 25-hydroxyvitamin D [Mass/Vol] 34.8 ng/mL Normal 30.0-100.0 [facility]; [facility] Work Phone: Comment on above: Vitamin D deficiency has been defined by the [place] of[place] and an Endocrine Society practice guideline as alevel of serum 25-OH vitamin D less than 20 ng/mL (1,2).The Endocrine Society went on to further define vitamin Dinsufficiency as a level between 21 and 29 ng/mL (2).1. IOM ([place] of Medicine). 2010. Dietary reference intakes for calcium and D. [place]: The National Academies Press.2. Magno MF, Do MILES, Jos PRATER, et al. Evaluation, treatment, and prevention of vitamin D deficiency: an Endocrine Society clinical practice guideline. JCEM. 2010; 96(7):1911-30. Test(s) 368597-UZN-Y ; 821623-MNQ-U; 571365-Oaouplrewqzni; 563682-Srnngolnuxi, Total; 804614-CZP-Q (Total); 327717-Hrpqr LDL-P; 627143-PQI Size; 470009-OW-LA Scorewas developed and its performance characteristics determinedby [employer]. It has not been cleared or approved by the Foodand Drug Administration.PATIENT WAS FASTINGPERFORMED BY: LabNomadica Brainstorming [address] [id number] BY: LabVena SolutionsThe Rehabilitation Hospital of Tinton FallsNsnzsm10[address] [id number] CBC W/AUTO DIFF WBC (25453)O rdered By: Manager Talent Management on 07-06-2020 Basophils (Bld) [#/Vol] 0.0 10*3/uL Normal 0.0-0.2 [facility]; [facility] Work Phone: Comment on above: Test(s) 115020-JPF-F ; 764251-XVW-U; 519169-Urjbprendocqh; 599440-Timkcwgrxtn, Total; 702790-KTW-Z (Total); 260901-Kvodg LDL-P; 068841-ZBG Size; 593955-UX-GU Scorewas developed and its performance characteristics determinedby [employer]. It has not been cleared or approved by the Foodand Drug Administration.PATIENT WAS FASTINGPERFORMED BY: [employer] [address] [id number] BY: [employer]70 Al[facility]zoMin[facility] [id number] Basophils/100 WBC (Bld) 1 % Normal [facility]; [facility] Work Phone: Comment on above: Test(s) 886595-VHT-C ; 597344-NXB-Y; 437029-Vygbpywpicfhv; 218052-Yzbbmknvmuw, Total; 096372-UKA-P (Total); 852374-Uixqj LDL-P; 404837-SDR Size; 215535-PG-ZX Scorewas developed and its performance characteristics determinedby [employer]. It has not been cleared or approved by the Foodand Drug Administration.PATIENT WAS FASTINGPERFORMED BY: [employer] [address] [id number] BY: [employer]70 [facility]zoMin[facility] [id number] Eosinophils (Bld) [#/Vol] 0.1 10*3/uL Normal 0.0-0.4 [facility]; [facility] Work Phone: Comment on above: Test(s) 871430-LLP-O ; 217623-MZC-O; 680438-Iegdbbuwlphwq; 506993-Yfnqdpwfmkm, Total; 397455-OTH-V (Total); 887956-Rrzyq LDL-P; 261108-XVI Size; 395454-SM-MV Scorewas developed and its performance characteristics determinedby [employer]. It has not been cleared or approved by the Foodand Drug Administration.PATIENT WAS FASTINGPERFORMED BY: [employer] [address] [id number] BY: Madvenue Lncikk77[address] [id number] Eosinophils/100 WBC (Bld) 2 % Normal [facility]; [facility] Work Phone: Comment on above: Test(s) 470268-FGE-N ; 243053-YVS-W; 438305-Wdgdtrpuvilmh; 424600-Igwfgzqjpbr, Total; 684158-JWL-E (Total); 639868-Finip LDL-P; 029015-RHM Size; 895034-GS-IO Scorewas developed and its performance characteristics determinedby [employer]. It has not been cleared or approved by the Foodand Drug Administration.PATIENT WAS FASTINGPERFORMED BY: [employer] [address] [id number] BY: [employer]70 [facility]zoMin[facility] [id number] Erythrocyte distribution width (RBC) [Ratio] 13.4 % Normal 11.6-15.4 [facility]; [facility] Work Phone: Comment on above: Test(s) 101612-SUZ-R ; 922123-MZV-L; 815391-Vjegagbjzncxj; 907955-Jwogjkmlnei, Total; 363395-QGZ-K (Total); 577712-Vpslm LDL-P; 529294-CBY Size; 705674-SL-IU Scorewas developed and its performance characteristics determinedby [employer]. It has not been cleared or approved by the Foodand Drug Administration.PATIENT WAS FASTINGPERFORMED BY: [employer] [address] [id number] BY: Siteheart6[address] [id number] Hematocrit (Bld) [Volume fraction] 43.5 % Normal 37.5-51.0 [facility]; [facility] Work Phone: Comment on above: Test(s) 962917-XUE-E ; 993217-IWO-N; 652976-Alffmlfzdvmpp; 965827-Gjonyrdgvkd, Total; 342508-HBJ-V (Total); 180029-Ziuxi LDL-P; 622290-XFC Size; 633241-MK-QF Scorewas developed and its performance characteristics determinedby [employer]. It has not been cleared or approved by the Foodand Drug Administration.PATIENT WAS FASTINGPERFORMED BY: Mavenlink[address] [id number] BY: Bubble [employer] Vidtbu9[address] [id number] Hemoglobin (Bld) [Mass/Vol] 15.1 g/dL Normal 13.0-17.7 [facility]; [facility] Work Phone: Comment on above: Test(s) 625412-KHN-I ; 238884-HIV-S; 591107-Vpeuujjjmigna; 405333-Nwyhhphptna, Total; 156813-TRF-D (Total); 424631-Jrhoa LDL-P; 397273-EUU Size; 476037-ZO-WS Scorewas developed and its performance characteristics determinedby [employer]. It has not been cleared or approved by the Foodand Drug Administration.PATIENT WAS FASTINGPERFORMED BY: [employer] [address] [id number] BY: [employer] [id number] Immature granulocytes (Bld) [#/Vol] 0.0 10*3/uL Normal 0.0-0.1 [facility]; [facility] Work Phone: Comment on above: Test(s) 117230-AKQ-P ; 368385-JOC-P; 344022-Jciqcnhygsivk; 744582-Xfwfrkfmsyu, Total; 820656-FQV-V (Total); 356344-Wcfmw LDL-P; 915430-TTH Size; 533158-QG-GG Scorewas developed and its performance characteristics determinedby [employer]. It has not been cleared or approved by the Foodand Drug Administration.PATIENT WAS FASTINGPERFORMED BY: Mavenlink[address] [id number] BY: TalkoThe Rehabilitation Hospital of Tinton FallsLwzdwn6253 [address] [id number] Immature granulocytes/100 WBC (Bld) 0 % Normal [facility]; [facility] Work Phone: Comment on above: Test(s) 963432-JVC-V ; 084907-DOX-G; 391224-Uxlqpozgeajzn; 283074-Nzxfrqiycyu, Total; 556835-QSS-K (Total); 048330-Ktcda LDL-P; 775086-PAA Size; 956568-YE-YV Scorewas developed and its performance characteristics determinedby [employer]. It has not been cleared or approved by the Foodand Drug Administration.PATIENT WAS FASTINGPERFORMED BY: [employer] [address] [id number] BY: PlumTV Eaknwn4[address] [id number] Lymphocytes (Bld) [#/Vol] 1.7 10*3/uL Normal 0.7-3.1 [facility]; [facility] Work Phone: Comment on above: Test(s) 875416-DAZ-K ; 360219-YGZ-B; 960357-Qsillkttegwdw; 699835-Vtgumwhggjm, Total; 656390-MXU-I (Total); 265756-Fusjr LDL-P; 732570-XEM Size; 406300-JD-VL Scorewas developed and its performance characteristics determinedby [employer]. It has not been cleared or approved by the Foodand Drug Administration.PATIENT WAS FASTINGPERFORMED BY: [employer] [address] [id number] BY: Madvenue Dsbrkf9[address] [id number] Lymphocytes/100 WBC (Bld) 30 % Normal [facility]; [facility] Work Phone: Comment on above: Test(s) 496666-NJZ-W ; 420685-EOA-H; 401116-Yrldzqapqelhi; 400930-Profbizuvsd, Total; 699311-SSL-U (Total); 359781-Jyxav LDL-P; 305773-QOW Size; 325825-DS-EF Scorewas developed and its performance characteristics determinedby [employer]. It has not been cleared or approved by the Foodand Drug Administration.PATIENT WAS FASTINGPERFORMED BY: [employer] [address] [id number] BY: B[employer] Ekemcn6[address] [id number] MCH (RBC) [Entitic mass] 29.5 pg Normal 26.6-33.0 [facility]; [facility] Work Phone: Comment on above: Test(s) 449422-ZCI-S ; 943415-BHT-T; 463355-Fzgfszjqmgwwp; 652193-Vvesbdztqql, Total; 897480-LEJ-J (Total); 539652-Fmkpo LDL-P; 258018-RWI Size; 067965-MR-RA Scorewas developed and its performance characteristics determinedby [employer]. It has not been cleared or approved by the Foodand Drug Administration.PATIENT WAS FASTINGPERFORMED BY: [employer] [address] [id number] BY: [employer] [id number] MCHC (RBC) [Mass/Vol] 34.7 g/dL Normal 31.5-35.7 [facility]; [facility] Work Phone: Comment on above: Test(s) 541019-AOI-I ; 239141-LZH-C; 981506-Yujzdzhlamkil; 324787-Jczypobpstt, Total; 528187-OGT-I (Total); 057004-Dmhjn LDL-P; 027788-UBR Size; 392101-DF-FU Scorewas developed and its performance characteristics determinedby [employer]. It has not been cleared or approved by the Foodand Drug Administration.PATIENT WAS FASTINGPERFORMED BY: [employer] [address] [id number] BY: Talko Qdbhmk4[address] [id number] MCV (RBC) [Entitic vol] 85 fL Normal 79-97 [facility]; [facility] Work Phone: Comment on above: Test(s) 034504-FJC-W ; 246126-DKC-C; 127456-Xkmquuxlsdfua; 092751-Ibvpbjokzbv, Total; 572119-CCS-E (Total); 140454-Crbyq LDL-P; 798213-OVM Size; 869427-JS-OB Scorewas developed and its performance characteristics determinedby [employer]. It has not been cleared or approved by the Foodand Drug Administration.PATIENT WAS FASTINGPERFORMED BY: [employer] [address] [id number] BY: Siteheart6[address] WashioAtrium Health Union [id number] Monocytes (Bld) [#/Vol] 0.3 10*3/uL Normal 0.1-0.9 [facility]; [facility] Work Phone: Comment on above: Test(s) 123300-AOO-W ; 906721-SEJ-O; 331597-Rkegrtkzoaerg; 142663-Kmetstchpeh, Total; 832745-MND-Z (Total); 050446-Ejpaa LDL-P; 098146-EJM Size; 915547-NU-NU Scorewas developed and its performance characteristics determinedby [employer]. It has not been cleared or approved by the Foodand Drug Administration.PATIENT WAS FASTINGPERFORMED BY: [employer] [address] [id number] BY: [employer]70 [place] PostAtrium Health Union [id number] Monocytes/100 WBC (Bld) 6 % Normal [facility]; [facility] Work Phone: Comment on above: Test(s) 606286-SUH-B ; 063252-IUR-E; 622487-Zwkllqhpvbkya; 317802-Zxymlninqmv, Total; 711933-WNU-O (Total); 861445-Tstcg LDL-P; 336271-BAH Size; 424702-MB-ET Scorewas developed and its performance characteristics determinedby [employer]. It has not been cleared or approved by the Foodand Drug Administration.PATIENT WAS FASTINGPERFORMED BY: [employer] [address] [id number] BY: Siteheart6[address] WashioAtrium Health Union [id number] Neutrophils (Bld) [#/Vol] 3.5 10*3/uL Normal 1.4-7.0 [facility]; [facility] Work Phone: Comment on above: Test(s) 377634-REP-V ; 885006-CCU-U; 409567-Vweghytkwcxop; 422995-Jfdcjswkhbs, Total; 156378-DFK-W (Total); 071896-Glutd LDL-P; 692443-DLI Size; 848069-GK-BB Scorewas developed and its performance characteristics determinedby [employer]. It has not been cleared or approved by the Foodand Drug Administration.PATIENT WAS FASTINGPERFORMED BY: Moda Operandi[address] [id number] BY: [employer]70 Al[facility]zoMin[facility] [id number] Neutrophils/100 WBC (Bld) 61 % Normal [facility]; [facility] Work Phone: Comment on above: Test(s) 831796-BVT-T ; 438171-HEU-H; 411100-Httneocmvnzes; 182449-Ruwemcriggl, Total; 038492-JRS-U (Total); 528124-Ucelh LDL-P; 884903-CPS Size; 269123-SS-WE Scorewas developed and its performance characteristics determinedby [employer]. It has not been cleared or approved by the Foodand Drug Administration.PATIENT WAS FASTINGPERFORMED BY: [employer] [address] [id number] BY: Madvenue Bdrecj7[address] [id number] Platelets (Bld) [#/Vol] 278 10*3/uL Normal 150-450 [facility]; [facility] Work Phone: Comment on above: Test(s) 049989-LLC-Q ; 045249-GEF-Q; 718252-Vrwykdkxffkxk; 406099-Xhudquaywld, Total; 012009-DQY-P (Total); 135586-Mylvo LDL-P; 319786-VZE Size; 877896-AW-GA Scorewas developed and its performance characteristics determinedby [employer]. It has not been cleared or approved by the Foodand Drug Administration.PATIENT WAS FASTINGPERFORMED BY: PlumTV [address] [id number] BY: [employer] Motion Wfdvrh[address] People Operating TechnologyAtrium Health [id number] RBC (Bld) [#/Vol] 5.11 10*6/uL Normal 4.14-5.80 [facility]; [facility] Work Phone: Comment on above: Test(s) 371888-DFZ-O ; 045141-AWQ-S; 933472-Gefkjhadlksqq; 345818-Hnbenphghff, Total; 959631-BLO-C (Total); 268253-Vtvka LDL-P; 206081-BOF Size; 575667-EL-LN Scorewas developed and its performance characteristics determinedby [employer]. It has not been cleared or approved by the Foodand Drug Administration.PATIENT WAS FASTINGPERFORMED BY: [employer] [address] [id number] BY: [employer] Qwdqyz4[address] [id number] WBC (Bld) [#/Vol] 5.6 10*3/uL Normal 3.4-10.8 [facility]; [facility] Work Phone: Comment on above: Test(s) 416239-OSO-G ; 213630-WUV-Z; 477623-Lqimbieseekpq; 665066-Duahmqnpdqz, Total; 015941-XSW-S (Total); 650428-Rxfal LDL-P; 165199-TLP Size; 193588-QP-CK Scorewas developed and its performance characteristics determinedby [employer]. It has not been cleared or approved by the Foodand Drug Administration.PATIENT WAS FASTINGPERFORMED BY: Bubble Motion[address] [id number] BY: Bubble MotionMountain View Regional Medical CenterKzrzxn37[address] [id number] METABOLIC PANEL, COMPREHENSI VE (14606)Ordered By: Manager Talent Management on 07-06-2020 Albumin [Mass/Vol] 4.5 g/dL Normal 3.8-4.9 [facility]; [facility] Work Phone: Comment on above: Test(s) 175722-PMA-N ; 868211-QAN-B; 195592-Ybiikvpgatxfi; 113762-Qducitkdrhf, Total; 992989-YTT-U (Total); 255002-Fvwbh LDL-P; 042848-FOF Size; 732620-XG-PM Scorewas developed and its performance characteristics determinedby [employer]. It has not been cleared or approved by the Foodand Drug Administration.PATIENT WAS FASTINGPERFORMED BY: oneDrum[address] [place] [address] [id number] BY: [employer]70 [employer] [id number] Albumin/Globulin [Mass ratio] 1.7 {ratio} Normal 1.2-2.2 [facility]; [facility] Work Phone: Comment on above: Test(s) 759645-VWY-N ; 885084-QCS-D; 109200-Wzlxpvrajmixp; 959859-Ivvfuwxfvyn, Total; 368698-YSV-Z (Total); 833000-Mwlkd LDL-P; 516122-YNF Size; 423373-LS-SL Scorewas developed and its performance characteristics determinedby [employer]. It has not been cleared or approved by the Foodand Drug Administration.PATIENT WAS FASTINGPERFORMED BY: Moda Operandi[address] [id number] BY: Siteheart6370 [place] PostAtrium Health Union [id number] ALP [Catalytic activity/Vol] 59 U/L Normal 39-117 [facility]; [facility] Work Phone: Comment on above: Effective July 11, 2020 Alkaline Phosphatase reference interval will be changing to: Age Male Female 0 - 5 days 52 - 127 52 - 127 6 - 10 days 34 - 242 34 - 242 11 - 20 days 114 - 357 114 - 357 21 - 30 days 107 - 494 107 - 494 1 - 2 months 162 - 539 162 - 539 3 - 6 months 141 - 452 141 - 452 7 - 11 months 128 - 401 128 - 401 12 months - 6 years 170 - 369 170 - 369 7 - 12 years 161 - 409 161 - 409 13 years 166 - 435 83 - 227 14 years 121 - 375 68 - 161 15 years 94 - 279 60 - 134 16 years 78 - 207 55 - 121 17 years 67 - 161 50 - 113 18 - 20 years 55 - 125 45 - 106 >20 years 48 - 121 48 - 121 Test(s) 070593-FAF-A ; 712716-BRP-L; 604108-Gpslrtoojfthh; 906654-Kzfwukcnecq, Total; 146285-REC-V (Total); 662494-Rlxid LDL-P; 929352-NJT Size; 052676-FK-ZF Scorewas developed and its performance characteristics determinedby [employer]. It has not been cleared or approved by the Foodand Drug Administration.PATIENT WAS FASTINGPERFORMED BY: Moda Operandi[address] [id number] BY: [employer]70 Al[facility]zoMineral [facility] [id number] ALT [Catalytic activity/Vol] 83 U/L Abnormal 0-44 [facility]; [facility] Work Phone: Comment on above: Test(s) 950582-ANO-N ; 450707-RTV-P; 681596-Mcehyamwwajmr; 865638-Kyzmvkagzvh, Total; 142973-JMA-Q (Total); 932067-Kuytv LDL-P; 633134-RLD Size; 174728-TD-YH Scorewas developed and its performance characteristics determinedby [employer]. It has not been cleared or approved by the Foodand Drug Administration.PATIENT WAS FASTINGPERFORMED BY: Moda Operandi[address] [id number] BY: Siteheart6[address] [id number] AST [Catalytic activity/Vol] 44 U/L Abnormal 0-40 [facility]; [facility] Work Phone: Comment on above: Test(s) 909330-SKE-W ; 840931-BJO-L; 532748-Bgkmrojtgkxam; 447687-Lxrwpcjlixr, Total; 778033-BLE-C (Total); 730517-Qxgmr LDL-P; 172985-HZY Size; 860569-UR-YC Scorewas developed and its performance characteristics determinedby [employer]. It has not been cleared or approved by the Foodand Drug Administration.PATIENT WAS FASTINGPERFORMED BY: Moda Operandi[address] [id number] BY: [employer] [id number] Bilirubin [Mass/Vol] 0.4 mg/dL Normal 0.0-1.2 [facility] Internal Medicine; [facility] Work Phone: Comment on above: Test(s) 145447-RAU-N ; 117626-DXW-W; 039513-Pheifqofjtngw; 369245-Kaybgjgjjep, Total; 101298-PFL-G (Total); 368292-Lmgtg LDL-P; 720622-VBE Size; 217483-XN-ZL Scorewas developed and its performance characteristics determinedby [employer]. It has not been cleared or approved by the Foodand Drug Administration.PATIENT WAS FASTINGPERFORMED BY: [employer] [address] [id number] BY: Madvenue Mersoy[address] [id number] Calcium [Mass/Vol] 9.5 mg/dL Normal 8.7-10.2 [facility] Internal Medicine; [facility] Work Phone: Comment on above: Test(s) 625418-WSZ-I ; 203335-KQT-L; 681790-Qdkzjhggcnute; 575615-Dohjeloeyxm, Total; 859169-USH-Q (Total); 853418-Ztixh LDL-P; 061576-WQP Size; 657862-RP-RW Scorewas developed and its performance characteristics determinedby [employer]. It has not been cleared or approved by the Foodand Drug Administration.PATIENT WAS FASTINGPERFORMED BY: [employer] [address] [id number] BY: Madvenue Bquvyf04[address] [id number] Chloride [Moles/Vol] 103 mmol/L Normal 96-106 [facility]; [facility] Work Phone: Comment on above: Test(s) 836607-GNE-Q ; 622564-XEP-K; 860809-Dwfnbfdlwmkqm; 382262-Xtiwidssegn, Total; 962351-BNO-Y (Total); 323918-Ifali LDL-P; 916092-HVG Size; 969320-VV-HE Scorewas developed and its performance characteristics determinedby [employer]. It has not been cleared or approved by the Foodand Drug Administration.PATIENT WAS FASTINGPERFORMED BY: Moda Operandi[address] [id number] BY: Siteheart6[address] [id number] CO2 [Moles/Vol] 21 mmol/L Normal 20-29 [facility] Internal Medicine; [facility] Work Phone: Comment on above: Test(s) 158369-KMJ-G ; 698079-ERK-A; 328126-Olzhevkwysqrl; 407153-Xavpprorvvk, Total; 433318-DZA-A (Total); 584445-Rgvdt LDL-P; 004511-VSV Size; 266348-AK-FM Scorewas developed and its performance characteristics determinedby [employer]. It has not been cleared or approved by the Foodand Drug Administration.PATIENT WAS FASTINGPERFORMED BY: [employer] [address] [id number] BY: TalkoThe Rehabilitation Hospital of Tinton FallsSnbyot7[address] [id number] Creatinine [Mass/Vol] 0.97 mg/dL Normal 0.76-1.27 [facility]; [facility] Work Phone: Comment on above: Test(s) 377341-VJT-A ; 936993-BQR-G; 761998-Nuvmdwrlakdaf; 570279-Svhkskikrzt, Total; 113839-TKB-I (Total); 231334-Xrzmp LDL-P; 093466-TRX Size; 334242-PW-CA Scorewas developed and its performance characteristics determinedby [employer]. It has not been cleared or approved by the Foodand Drug Administration.PATIENT WAS FASTINGPERFORMED BY: [employer]um[employer] [address] [id number] BY: Bubble MotionJoel Ville 53557[address] [id number] GFR/1.73 sq M.predicted among blacks CKD-EPI (S/P/Bld) [Vol rate/Area] 103 mL/min/1.73 Normal [facility]; [facility] Work Phone: Comment on above: [employer] currently reports eGFR in compliance with the current recommendations of the National Kidney Foundation. iTiffin will update reporting as new guidelines are published from the NKF-ASN Task force. Test(s) 770979-VGV-I ; 319524-NSN-J; 884529-Qjljxqnmlvfap; 517660-Dlmwhhtctpz, Total; 956854-CKD-O (Total); 017645-Ujplv LDL-P; 712488-TBR Size; 202435-LC-YG Scorewas developed and its performance characteristics determinedby [employer]. It has not been cleared or approved by the Foodand Drug Administration.PATIENT WAS FASTINGPERFORMED BY: [employer] [address] [id number] BY: [employer] Xhqjpy[address] [id number] GFR/1.73 sq M.predicted among non-blacks CKD-EPI (S/P/Bld) [Vol rate/Area] 89 mL/min/1.73 Normal [facility]; [facility] Work Phone: Comment on above: Test(s) 424250-RJI-U ; 102147-MQR-O; 292719-Nxjfppipeeryp; 034718-Hzrnotnppaq, Total; 884732-PHF-H (Total); 453812-Iuvip LDL-P; 004086-CUJ Size; 202818-SK-DL Scorewas developed and its performance characteristics determinedby [employer]. It has not been cleared or approved by the Foodand Drug Administration.PATIENT WAS FASTINGPERFORMED BY: [employer] [address] [id number] BY: Bubble Motion Grvkgw1246 AlonzoAdello IncAtrium Health Union [id number] Globulin (S) [Mass/Vol] 2.7 g/dL Normal 1.5-4.5 [facility]; [facility] Work Phone: Comment on above: Test(s) 739280-YXT-E ; 884723-WRR-T; 460870-Qbgmztqxhhwno; 729933-Wdkiweftrbz, Total; 081342-ASE-L (Total); 439056-Mmkyj LDL-P; 754842-VQT Size; 363590-LM-GS Scorewas developed and its performance characteristics determinedby [employer]. It has not been cleared or approved by the Foodand Drug Administration.PATIENT WAS FASTINGPERFORMED BY: [employer] [address] [id number] BY: Siteheart6370 [address] People Operating TechnologyAtrium Health [id number] Glucose [Mass/Vol] 145 mg/dL Abnormal 65-99 [facility] Internal Medicine; [facility] Internal Medicine Work Phone: Comment on above: Test(s) 352498-ETQ-T ; 227295-KSM-X; 020506-Nttsmfzcsmsca; 827510-Lxyruabpwou, Total; 514153-UGX-R (Total); 092004-Tldrd LDL-P; 032805-MME Size; 261929-LQ-AG Scorewas developed and its performance characteristics determinedby [employer]. It has not been cleared or approved by the Foodand Drug Administration.PATIENT WAS FASTINGPERFORMED BY: Mavenlink[address] [id number] BY: Bubble MotionThe Rehabilitation Hospital of Tinton FallsDqsotx2078 [place] People Operating TechnologyAtrium Health [id number] Potassium [Moles/Vol] 4.4 mmol/L Normal 3.5-5.2 [facility]; [facility] Internal Medicine Work Phone: Comment on above: Test(s) 827291-NLU-U ; 290291-GJA-T; 247635-Xhdevfcrvwqvr; 658405-Ntgvseudexy, Total; 035285-CYE-P (Total); 144714-Rdfeh LDL-P; 533291-IRL Size; 039144-BV-AA Scorewas developed and its performance characteristics determinedby [employer]. It has not been cleared or approved by the Foodand Drug Administration.PATIENT WAS FASTINGPERFORMED BY: [employer] [address] [id number] BY: [employer] [id number] Protein [Mass/Vol] 7.2 g/dL Normal 6.0-8.5 [facility] Internal Medicine; [facility] Work Phone: Comment on above: Test(s) 203567-NCV-E ; 853757-OQD-T; 059134-Uvhwtdkxbqwok; 863266-Izxlxmyisrj, Total; 099450-AOH-F (Total); 545391-Sjquw LDL-P; 552071-PRR Size; 036247-HR-UY Scorewas developed and its performance characteristics determinedby [employer]. It has not been cleared or approved by the Foodand Drug Administration.PATIENT WAS FASTINGPERFORMED BY: [employer] [address] [id number] BY: Madvenue Ibdlfy23[address] [id number] Sodium [Moles/Vol] 141 mmol/L Normal 134-144 [facility] Internal Medicine; [facility] Work Phone: Comment on above: Test(s) 328758-FPR-G ; 683932-PIV-T; 737333-Nvrsiiirjmeep; 625219-Stvvljqiiur, Total; 537144-YZT-Y (Total); 377707-Lwwce LDL-P; 593550-NSM Size; 725011-KM-WP Scorewas developed and its performance characteristics determinedby [employer]. It has not been cleared or approved by the Foodand Drug Administration.PATIENT WAS FASTINGPERFORMED BY: [employer] [address] [id number] BY: Siteheart6370 [facility]zoMineral [facility] [id number] Urea nitrogen [Mass/Vol] 13 mg/dL Normal 6-24 [facility]; [facility] Work Phone: Comment on above: Test(s) 870418-LFN-S ; 249185-FNW-P; 102603-Eiuxbtqtrykva; 570480-Rhuhqoldkos, Total; 695599-PCF-W (Total); 155470-Tksxo LDL-P; 518249-UEG Size; 062613-YI-RL Scorewas developed and its performance characteristics determinedby [employer]. It has not been cleared or approved by the Foodand Drug Administration.PATIENT WAS FASTINGPERFORMED BY: [employer] [address] [id number] BY: Siteheart6370 [facility]zoMineral [facility] Center [id number] Urea nitrogen/Creatinine [Mass ratio] 13 mg/mg Normal 9-20 [facility]; [facility] Work Phone: Comment on above: Test(s) 408727-SZO-M ; 847085-TET-F; 415603-Dytvoozyntrmp; 167018-Zzqwdhgvzms, Total; 350449-CJR-K (Total); 912025-Rkhnp LDL-P; 847147-GAA Size; 132529-OR-UK Scorewas developed and its performance characteristics determinedby [employer]. It has not been cleared or approved by the Foodand Drug Administration.PATIENT WAS FASTINGPERFORMED BY: [employer] [address] [id number] BY: Emergent Healthlin6[address] [id number] MICROALBUMINOrdered By: Syst em Hydraulic Hammer Operator on 07-06-2020 Albumin DL <= 20 mg/L (U) [Mass/Vol] 8.3 ug/mL Normal Comprehensiv e Internal Medicine; [facility] Work Phone: Comment on above: Test(s) 714101-IKK-U ; 020375-ILU-O; 920367-Vhuvcdflbwtir; 102701-Rpkvgydhdoq, Total; 202378-SLY-R (Total); 710243-Cbmcr LDL-P; 480272-ASG Size; 769286-GB-II Scorewas developed and its performance characteristics determinedby [employer]. It has not been cleared or approved by the Foodand Drug Administration.PATIENT WAS FASTINGPERFORMED BY: [employer] [address] [id number] BY: Madvenue Lnvkre[address] [place] [address] [id number] Albumin/Creatinine (U) [Mass ratio] 7 {mg/g_creat} Normal 0-29 [facility]; [facility] Work Phone: Comment on above: Normal: 0 - 29 Moder ately increased: 30 - 300 Severely increased: >300 Test(s) 250112-OGG-R ; 785566-WGK-M; 681421-Uszgmvymqjrot; 205845-Itronswmwgy, Total; 624556-YIN-B (Total); 940511-Lxwbt LDL-P; 319943-XNL Size; 029997-KX-YK Scorewas developed and its performance characteristics determinedby [employer]. It has not been cleared or approved by the FoodAnzhi.com Drug Administration.PATIENT WAS FASTINGPERFORMED BY: [employer] [address] [id number] BY: [employer] [id number] Creatinine (U) [Mass/Vol] 114.4 mg/dL Normal [facility]; [facility] Work Phone: Comment on above: Test(s) 810841-CNI-Y ; 614600-FIL-J; 859979-Nrseuiclgrlam; 071300-Jgnvdlajnuh, Total; 362802-FXU-G (Total); 077315-Vrpkh LDL-P; 894087-CLH Size; 625559-FC-QX Scorewas developed and its performance characteristics determinedby [employer]. It has not been cleared or approved by the Foodand Drug Administration.PATIENT WAS FASTINGPERFORMED BY: Moda Oper[employer] [id number] BY: Talko Kzgktp3251 GameGeneticsAtrium Health [id number] NMR Profile (56766)Ordered B y: Manager Talent Management on 07-06-2020 Cholesterol [Mass/Vol] 218 mg/dL Abnormal 100-199 [facility]; [facility] Work Phone: Comment on above: Test(s) 023619-HZT-A ; 762912-DXN-V; 692765-Xqwlrdidlkpaw; 927927-Slvizblklqc, Total; 620153-GWY-W (Total); 521206-Ydqgx LDL-P; 287928-ZDJ Size; 655520-QA-RM Scorewas developed and its performance characteristics determinedby [employer]. It has not been cleared or approved by the Foodand Drug Administration.PATIENT WAS FASTINGPERFORMED BY: [employer]a Oper[employer] [id number] BY: [employer]70 Alonzo WashioAtrium Health Union [id number] Lipoprotein.alpha [Moles/Vol] 32.7 umol/L Normal [facility]; [facility] Work Phone: Comment on above: Test(s) 907113-XIZ-O ; 076871-LMM-F; 685341-Dqgrlpuxsrdcc; 958515-Gxssvhritym, Total; 049979-RIK-U (Total); 343063-Wgxtg LDL-P; 321952-XSP Size; 024760-LB-ZD Scorewas developed and its performance characteristics determinedby [employer]. It has not been cleared or approved by the Foodand Drug Administration.PATIENT WAS FASTINGPERFORMED BY: [employer] [address] [id number] BY: [employer] [id number] Lipoprotein.beta.sub particle [Entitic length] 19.7 nm Abnormal [facility]; [facility] Work Phone: Comment on above: INTERPRETATIVE INFORMATION PARTICLE CONCENTRATION AND SIZE <--Lower CVD Risk Higher CVD Risk--> LDL AND HDL PARTICLES Percentile in Reference Population HDL-P (total) High 75th 50th 25th Low >34.9 34.9 30.5 26.7 <26.7 . Small LDL-P Low 25th 50th 75th High <117 117 527 839 >839 . LDL Size <-Large (Pattern A)-> <-Small (Pattern B)-> 23.0 20.6 20.5 19.0 Small LDL-P and LDL Size are associated with CVD risk, but not afterLDL-P is taken into account. Test(s) 763014-ZBH-V ; 461067-DIQ-I; 611788-Znuotffmqdebv; 598755-Ylgzpmpwjfr, Total; 297580-WJF-C (Total); 144711-Htgoy LDL-P; 556509-EAM Size; 996371-ZT-OT Scorewas developed and its performance characteristics determinedby [employer]. It has not been cleared or approved by the Foodand Drug Administration.PATIENT WAS FASTINGPERFORMED BY: Bubble Motion[address] [id number] BY: LabVena SolutionsThe Rehabilitation Hospital of Tinton FallsFkvbfb4636 [address] [id number] Lipoprotein.beta.sub particle [Moles/Vol] 1833 nmol/L Abnormal Comprehensi ve Internal Medicine; [facility] Work Phone: Comment on above: Low < 1000 Moderate 1000 - 1299 Borderline-High 1300 - 1599 High 1600 - 2000 Very High > 2000 Test(s) 855464-VBM-G ; 114151-PSQ-V; 536135-Dfnpvpolijdis; 470317-Nquqafutmui, Total; 547645-CXI-N (Total); 089370-Gbhni LDL-P; 810806-CJN Size; 915076-AW-RM Scorewas developed and its performance characteristics determinedby [employer]. It has not been cleared or approved by the Foodand Drug Administration.PATIENT WAS FASTINGPERFORMED BY: Mavenlink[address] [id number] BY: Bubble Motion Ayycwe9042 GameGeneticsAtrium Health [id number] Lipoprotein.beta.sub particle.small [Moles/Vol] 1472 nmol/L Abnormal [facility]; [facility] Work Phone: Comment on above: Test(s) 357171-LAG-J ; 140961-JCN-V; 572257-Cvwjrmrburlqv; 098222-Gxrhhzgcttd, Total; 094198-MCM-R (Total); 494432-Vizwq LDL-P; 716514-KJK Size; 475931-CD-TO Scorewas developed and its performance characteristics determinedby [employer]. It has not been cleared or approved by the Foodand Drug Administration.PATIENT WAS FASTINGPERFORMED BY: [employer] [address] [id number] BY: [employer]70 GameGeneticsAtrium Health [id number] Triglyceride [Mass/Vol] 292 mg/dL Abnormal 0-149 [facility]; [facility] Work Phone: Comment on above: Test(s) 933076-IXG-U ; 722592-YMJ-N; 412303-Nfrtjrzejsckr; 114269-Yszmqwounmq, Total; 216556-HFC-E (Total); 774518-Vbyef LDL-P; 349185-CSY Size; 590403-MD-DL Scorewas developed and its performance characteristics determinedby [employer]. It has not been cleared or approved by the Foodand Drug Administration.PATIENT WAS FASTINGPERFORMED BY: Mavenlink[address] [id number] BY: Talko Fjscii2363 [facility]zoMin[facility] [id number] NMR Profile (36413) 127 mg/dL Abnormal 0-99 [facility] ehensive Internal Medicine; [facility] Work Phone: Comment on above: . Optimal < 100 Abov e optimal 100 - 129 Borderline 130 - 159 High 160 - 189 Very high > 189 . Test(s) 458320-MTN-Z ; 345556-PPX-F; 475273-Fxqtsphckjjdl; 651248-Vwsjysacjjd, Total; 943032-OGM-J (Total); 000883-Omdda LDL-P; 456623-EPT Size; 786638-OJ-DI Scorewas developed and its performance characteristics determinedby [employer]. It has not been cleared or approved by the Foodand Drug Administration.PATIENT WAS FASTINGPERFORMED BY: [employer] [facility] [id number] BY: [employer] [id number] NMR Profile (14112) 39 mg/dL Abnormal [facility]ensive Internal Medicine; [facility] Work Phone: Comment on above: Test(s) 507289-JNV-T ; 913210-RAS-Y; 482194-Vcusqmwkxaycm; 416932-Mvxaqurrxdm, Total; 370480-MTY-H (Total); 566468-Yizcp LDL-P; 374697-MEH Size; 799868-ZZ-IS Scorewas developed and its performance characteristics determinedby [employer]. It has not been cleared or approved by the Foodand Drug Administration.PATIENT WAS FASTINGPERFORMED BY: Inventergy[address] [place] [address] [id number] BY: Madvenue Pafddy50[address] [id number] NMR Profile (31256) 292 mg/dL Abnormal 0-149 [facility] ehensive Internal Medicine; [facility] Work Phone: NMR Profile (50772) 218 mg/dL Abnormal 100-199 [facility] ehensive Internal Medicine; [facility] Work Phone: TSH ([id number])Ordered By: Kelly Victoria on 07-06-2020 TSH Qn 2.500 {uIU/mL} Normal 0.450-4.50 0 [facility]; [facility] Work Phone: Comment on above: Test(s) 197693-UXY-I ; 042116-INN-J; 717615-Qrerquzprrsoi; 130821-Jyhilpaxgij, Total; 656515-DWY-N (Total); 947047-Mysos LDL-P; 371994-AWL Size; 946477-AA-LY Scorewas developed and its performance characteristics determinedby [employer]. It has not been cleared or approved by the Foodand Drug Administration.PATIENT WAS FASTINGPERFORMED BY: Moda Operandi[address] [id number] BY: [employer] [place] [id number] URINALYSIS, W/ MICRO (38234) Ordered By: Manager Talent Management on 07-06-2020 Appearance (U) Clear Normal Comprehens tyron Internal Medicine; [facility] Work Phone: Comment on above: Test(s) 256347-FIX-A ; 864985-TBQ-O; 755200-Upwqihowyjtxo; 738662-Qbgtrpsvtcx, Total; 811573-KMZ-J (Total); 969401-Rednz LDL-P; 249114-EZL Size; 860030-LV-SM Scorewas developed and its performance characteristics determinedby [employer]. It has not been cleared or approved by the Foodand Drug Administration.PATIENT WAS FASTINGPERFORMED BY: Moda Operandi[address] [id number] BY: [employer]70 [employer] [place] [id number] Bilirubin Ql (U) Negative Normal Comprehe nsive Internal Medicine; [facility] Work Phone: Comment on above: Test(s) 004035-YZQ-K ; 124939-FFV-V; 659927-Rnabkotxuhlsc; 870898-Zovmggltorw, Total; 109033-YYL-K (Total); 160924-Xdkps LDL-P; 147598-EDT Size; 507319-AA-JJ Scorewas developed and its performance characteristics determinedby [employer]. It has not been cleared or approved by the Foodand Drug Administration.PATIENT WAS FASTINGPERFORMED BY: Mavenlink[address] [id number] BY: Bubble MotionMountain View Regional Medical CenterMnkpmj4467 [address] [id number] Color (U) Yellow Normal [facility]; [facility] Work Phone: Comment on above: Test(s) 076169-XDG-B ; 945886-VQD-T; 884726-Ytkwqyvbhjwtb; 459430-Umddlkotfgq, Total; 497123-YFY-W (Total); 755855-Placq LDL-P; 050369-ICO Size; 976068-HB-BB Scorewas developed and its performance characteristics determinedby [employer]. It has not been cleared or approved by the Foodand Drug Administration.PATIENT WAS FASTINGPERFORMED BY: [employer] [address] [id number] BY: [employer] [id number] Glucose Ql (U) Negative Normal Comprehens tyron Internal Medicine; [facility] Work Phone: Comment on above: Test(s) 601560-KPQ-C ; 906167-JCD-U; 611838-Kkhtuczukwqsj; 510531-Mvrkbxvojbh, Total; 584032-LOY-Y (Total); 021951-Voykv LDL-P; 716911-FNC Size; 557489-LS-RY Scorewas developed and its performance characteristics determinedby [employer]. It has not been cleared or approved by the Foodand Drug Administration.PATIENT WAS FASTINGPERFORMED BY: [employer] [address] [id number] BY: TalkoThe Rehabilitation Hospital of Tinton FallsMjuhgu7636 [address] [id number] Hemoglobin Ql (U) Negative Normal Compreh ensive Internal Medicine; [facility] Work Phone: Comment on above: Test(s) 540527-QBG-M ; 831323-BFW-I; 519448-Mwxjfpkpbjalx; 580640-Kqgkwhykroz, Total; 004984-XAA-Z (Total); 998576-Fpgqn LDL-P; 699746-OQS Size; 896034-HP-IR Scorewas developed and its performance characteristics determinedby [employer]. It has not been cleared or approved by the Foodand Drug Administration.PATIENT WAS FASTINGPERFORMED BY: [employer] [address] [id number] BY: [employer]70 [facility] [id number] Ketones Ql (U) Negative Normal [facility] Internal [facility]; [facility] Work Phone: Comment on above: Test(s) 242548-WMN-J ; 034848-KBR-Q; 940072-Tcrpnormxunlg; 730641-Tppfaouvpnc, Total; 802854-PAD-H (Total); 409119-Gopse LDL-P; 086097-SQF Size; 216947-EZ-BF Scorewas developed and its performance characteristics determinedby [employer]. It has not been cleared or approved by the Foodand Drug Administration.PATIENT WAS FASTINGPERFORMED BY: [employer] [address] [id number] BY: [employer]70 [facility] [id number] Leukocyte esterase Test strip Ql (U) Negative Normal [facility]; [facility] Work Phone: Comment on above: Test(s) 306043-UTQ-U ; 833111-FTV-Y; 134568-Xmhibisfhgrlt; 388780-Bprryvnhjim, Total; 001755-AUK-F (Total); 147019-Ubcbl LDL-P; 134445-ZPZ Size; 750314-EO-FY Scorewas developed and its performance characteristics determinedby [employer]. It has not been cleared or approved by the Foodand Drug Administration.PATIENT WAS FASTINGPERFORMED BY: [employer] [address] [id number] BY: Siteheart6370 [facility] [id number] Microscopic observation LM Nom (Urine sed) MICRON Normal [facility]; [facility] Work Phone: Comment on above: Microscopic follows if indicated. Test(s) 903794-ZQR-H ; 060818-ZWV-K; 972956-Nponlzugeqnxs; 312263-Nqbnvyptdxf, Total; 661549-XWK-V (Total); 223290-Vffkx LDL-P; 854702-ULL Size; 569817-PR-SU Scorewas developed and its performance characteristics determinedby [employer]. It has not been cleared or approved by the Foodand Drug Administration.PATIENT WAS FASTINGPERFORMED BY: [employer] [address] [id number] BY: [employer]70 [place] PostAtrium Health Union [id number] Microscopic observation LM Nom (Urine sed) See below: Normal [facility]; [facility] Work Phone: Comment on above: Microscopic was giovanni cated and was performed. Test(s) 326221-JHL-P ; 153345-ZVU-I; 251562-Tkafblzbakomg; 311091-Mtcctqnwmnf, Total; 660568-FCF-M (Total); 213312-Auzev LDL-P; 711311-VIV Size; 701575-NO-FP Scorewas developed and its performance characteristics determinedby [employer]. It has not been cleared or approved by the Foodand Drug Administration.PATIENT WAS FASTINGPERFORMED BY: [employer] [address] [id number] BY: Siteheart6370 [place] PostAtrium Health Union [id number] Nitrite Ql (U) Negative Normal [facility]; [facility] Work Phone: Comment on above: Test(s) 571758-ZTR-L ; 147277-RKY-Q; 989465-Pibsjgogoxnge; 220068-Bqjufchmlpn, Total; 360804-PCU-I (Total); 486267-Xxost LDL-P; 300213-BMO Size; 574379-ZP-HD Scorewas developed and its performance characteristics determinedby [employer]. It has not been cleared or approved by the Foodand Drug Administration.PATIENT WAS FASTINGPERFORMED BY: [employer] [address] [id number] BY: Talko Nacvxh5209 Al[place] People Operating TechnologyAtrium Health [id number] pH (U) 6.0 [pH] Normal 5.0-7.5 [facility]; [facility] Work Phone: Comment on above: Test(s) 060644-QNJ-J ; 203725-UAE-K; 954914-Baloilckofmui; 210805-Neozljpgble, Total; 659586-HTX-N (Total); 006150-Lycwg LDL-P; 521320-AXX Size; 746571-OR-NR Scorewas developed and its performance characteristics determinedby [employer]. It has not been cleared or approved by the Foodand Drug Administration.PATIENT WAS FASTINGPERFORMED BY: [employer] [address] [id number] BY: [employer]70 GameGeneticsAtrium Health [id number] Protein Ql (U) Negative Normal [facility]; [facility] Work Phone: Comment on above: Test(s) 135878-ZBL-L ; 791600-ZEQ-L; 459549-Nburfkdcthldj; 533849-Bpmnaplmxoh, Total; 980953-VYP-N (Total); 009014-Qyegs LDL-P; 945407-RWZ Size; 237055-IS-CV Scorewas developed and its performance characteristics determinedby [employer]. It has not been cleared or approved by the Foodand Drug Administration.PATIENT WAS FASTINGPERFORMED BY: [employer] [address] [id number] BY: Talko Sagksq6[address] [facility] [id number] Specific gravity (U) [Rel density] 1.021 1 Normal 1.005-1.03 0 [facility]; [facility] Work Phone: Comment on above: Test(s) 536185-BAQ-T ; 358527-FVR-C; 778018-Cutrkxkhmbvsd; 556723-Gecdmysewuu, Total; 044886-RMM-L (Total); 757065-Skawd LDL-P; 350136-VXN Size; 552269-OK-QO Scorewas developed and its performance characteristics determinedby [employer]. It has not been cleared or approved by the Foodand Drug Administration.PATIENT WAS FASTINGPERFORMED BY: [employer] [address] [id number] BY: Plum[employer] Quztpm5[address] [id number] Urobilinogen (U) [Mass/Vol] 0.2 mg/dL Normal 0.2-1.0 [facility]; [facility] Work Phone: Comment on above: Test(s) 917983-WCP-P ; 854324-NBQ-N; 530497-Qrxdyjclimylx; 811599-Lwqcoxjpfuy, Total; 961360-AWU-I (Total); 441331-Uumkj LDL-P; 246270-JNQ Size; 710170-XQ-VV Scorewas developed and its performance characteristics determinedby [employer]. It has not been cleared or approved by the Foodand Drug Administration.PATIENT WAS FASTINGPERFORMED BY: [employer] [address] [id number] BY: Mad[place] Bjusjk6[address] [id number] Blood Glucose , Office ([phone])Ordered By: Angelica Meneses on 04-13-2020 Glucose Glucometer (BldC) [Moles/Vol] 181 1 Normal [facility]; [facility] Work Phone: HgA1C , Office ([phone])Ordere d By: Angelica Meneses on 04-13-2020 HbA1c (Bld) [Mass fraction] 7.3 % Abnormal 4.6 - 7.1 [facility]; [facility] Work Phone: Blood Glucose , Office ([phone])Ordered By: Angelica Meneses on 11-25-2019 Glucose Glucometer (BldC) [Moles/Vol] 134 1 Normal [facility] Work Phone: HgA1C , Office ([phone])Ordere d By: Angelica Meneses on 11-25-2019 HbA1c (Bld) [Mass fraction] 6.6 % Normal 4.6 - 7.1 [facility] Work Phone: CBC with auto diff ([phone])Or dered By: Manager [employer] on 11-11-2019 Basophils (Bld) [#/Vol] 0.0 {x10E3/uL} Normal 0.0-0.2 [facility] Work Phone: Comment on above: Test(s) 862327-OML-E ; 906454-QWO-T; 769943-Ujfvajtwvwobn; 469847-Eowvxbvoaon, Total; 156189-FRD-A (Total); 865532-Sbikn LDL-P; 622174-OWF Size; 548688-UQ-NA Scorewas developed and its performance characteristics determinedby [employer]. It has not been cleared or approved by the Foodand Drug Administration.PATIENT WAS FASTINGPERFORMED BY: [employer] [place] [address] [id number] BY: [employer]70 [place] PostAtrium Health Union [id number] Basophils (Bld) [#/Vol] 0.0 10*3/uL Normal 0.0-0.2 [facility]; [facility] Work Phone: Comment on above: Test(s) 388153-IBA-A ; 124257-OQN-Z; 012184-Jgdmmheqzsgej; 088248-Dpexzolsklo, Total; 569108-DHW-D (Total); 456479-Cvagm LDL-P; 368866-JUC Size; 388882-VM-BA Scorewas developed and its performance characteristics determinedby [employer]. It has not been cleared or approved by the Foodand Drug Administration.PATIENT WAS FASTINGPERFORMED BY: Moda Operandi[address] [id number] BY: [employer]70 [employer] PostAtrium Health Union [id number] Basophils/100 WBC (Bld) 1 % Normal [facility] Work Phone: Comment on above: Test(s) 860882-NFL-U ; 194361-ZFE-B; 039557-Aifayzptcmfwk; 720074-Ismgpdtknhi, Total; 539649-PZN-M (Total); 652686-Qnswr LDL-P; 262466-VQF Size; 617229-QA-MS Scorewas developed and its performance characteristics determinedby [employer]. It has not been cleared or approved by the Foodand Drug Administration.PATIENT WAS FASTINGPERFORMED BY: Bubble Motion[address] [id number] BY: Bubble MotionThe Rehabilitation Hospital of Tinton FallsOtoifb3805 [address] [id number] Eosinophils (Bld) [#/Vol] 0.1 {x10E3/uL} Normal 0.0-0.4 [facility] Work Phone: Comment on above: Test(s) 496008-MCT-U ; 152640-FVF-G; 210187-Cudhutvvxprfd; 882709-Szqxddsjtcp, Total; 214337-OZP-C (Total); 970768-Iogiw LDL-P; 617960-CAN Size; 185023-IV-DG Scorewas developed and its performance characteristics determinedby [employer]. It has not been cleared or approved by the Foodand Drug Administration.PATIENT WAS FASTINGPERFORMED BY: Bubble Motion[address] [id number] BY: Bubble MotionThe Rehabilitation Hospital of Tinton FallsSqkkch9[address] [id number] Eosinophils (Bld) [#/Vol] 0.1 10*3/uL Normal 0.0-0.4 [facility]; [facility] Work Phone: Comment on above: Test(s) 741278-ISG-E ; 960541-FYA-V; 445815-Uaurgymggvzrp; 165597-Sgmkgpvtgmg, Total; 428465-PZY-J (Total); 129692-Tpngu LDL-P; 005182-PAA Size; 714899-EC-QJ Scorewas developed and its performance characteristics determinedby [employer]. It has not been cleared or approved by the Foodand Drug Administration.PATIENT WAS FASTINGPERFORMED BY: [employer] [address] [id number] BY: Bubble MotionThe Rehabilitation Hospital of Tinton FallsZwwess5192 [address] [id number] Eosinophils/100 WBC (Bld) 2 % Normal [facility] Work Phone: Comment on above: Test(s) 319668-XTT-E ; 035230-FEM-C; 262912-Wascaaxdyqbek; 757589-Zarwlrxlhji, Total; 683912-CDZ-Y (Total); 782942-Cgtuu LDL-P; 458577-PHF Size; 266510-KH-PY Scorewas developed and its performance characteristics determinedby [employer]. It has not been cleared or approved by the Foodand Drug Administration.PATIENT WAS FASTINGPERFORMED BY: [employer] [address] [id number] BY: Siteheart6[address] [id number] Erythrocyte distribution width (RBC) [Ratio] 13.2 % Normal 11.6-15.4 [facility] Work Phone: Comment on above: Test(s) 899121-ILH-T ; 858635-SRE-P; 026400-Pvafxtpoevkeb; 332916-Xsgnymviohw, Total; 167537-QLE-G (Total); 152840-Ljpsq LDL-P; 202440-KGM Size; 238408-KS-JK Scorewas developed and its performance characteristics determinedby [employer]. It has not been cleared or approved by the Foodand Drug Administration.PATIENT WAS FASTINGPERFORMED BY: [employer] [address] [id number] BY: Bubble MotionThe Rehabilitation Hospital of Tinton FallsOgmgvf5253 [address] [id number] Hematocrit (Bld) [Volume fraction] 43.8 % Normal 37.5-51.0 [facility] Work Phone: Comment on above: Test(s) 637058-FYG-Y ; 058437-APT-W; 664350-Jwcoamepiubrt; 872094-Repizdiluld, Total; 752183-ZKI-I (Total); 490349-Oxryw LDL-P; 481325-IWG Size; 342542-QA-KH Scorewas developed and its performance characteristics determinedby [employer]. It has not been cleared or approved by the Foodand Drug Administration.PATIENT WAS FASTINGPERFORMED BY: [employer] [address] [id number] BY: Bubble Motion Emvkda5[address] [facility] [id number] Hemoglobin (Bld) [Mass/Vol] 14.9 g/dL Normal 13.0-17.7 [facility] Work Phone: Comment on above: Test(s) 669916-HVY-Z ; 025395-OZA-R; 525528-Euwxjabyfijjn; 703483-Xeuiuuoaxhg, Total; 553367-FSE-L (Total); 171603-Rfxcu LDL-P; 176096-UNS Size; 652193-JN-JJ Scorewas developed and its performance characteristics determinedby [employer]. It has not been cleared or approved by the Foodand Drug Administration.PATIENT WAS FASTINGPERFORMED BY: [employer] [address] [id number] BY: [employer]6370 [facility]zoMineral [facility] [id number] Immature granulocytes (Bld) [#/Vol] 0.0 {x10E3/uL} Normal 0.0-0.1 [facility] Work Phone: Comment on above: Test(s) 549139-RNM-V ; 185606-LBA-R; 170779-Dokxeawaptbfm; 011567-Vxowqvilgad, Total; 749952-GHF-Y (Total); 585674-Fxcei LDL-P; 129278-RUO Size; 221153-HD-AE Scorewas developed and its performance characteristics determinedby [employer]. It has not been cleared or approved by the Foodand Drug Administration.PATIENT WAS FASTINGPERFORMED BY: [employer] [address] [id number] BY: [employer] [employer] [id number] Immature granulocytes (Bld) [#/Vol] 0.0 10*3/uL Normal 0.0-0.1 [facility]; [facility] Work Phone: Comment on above: Test(s) 981982-EMU-U ; 360930-YHX-Q; 788582-Tvklmtlcnifzj; 499088-Cftgjorqtdm, Total; 189801-XYQ-M (Total); 235927-Stjyy LDL-P; 813461-VCS Size; 264596-AC-HW Scorewas developed and its performance characteristics determinedby [employer]. It has not been cleared or approved by the Foodand Drug Administration.PATIENT WAS FASTINGPERFORMED BY: Moda Operandi[address] [id number] BY: Siteheart6[address] [facility] [id number] Immature granulocytes/100 WBC (Bld) 0 % Normal [facility] Work Phone: Comment on above: Test(s) 856178-XSF-Z ; 468828-YWR-T; 475897-Jjfzazbirjdef; 745063-Wcgzdpofmmq, Total; 231028-TUJ-S (Total); 469604-Uafiq LDL-P; 637885-LSH Size; 319276-CR-XE Scorewas developed and its performance characteristics determinedby [employer]. It has not been cleared or approved by the Foodand Drug Administration.PATIENT WAS FASTINGPERFORMED BY: Moda Operandi[address] [id number] BY: Madvenue Pwckgn9003 [address] [facility] [id number] Lymphocytes (Bld) [#/Vol] 2.1 {x10E3/uL} Normal 0.7-3.1 [facility] Work Phone: Comment on above: Test(s) 121212-QXN-Q ; 852756-VRG-H; 517292-Vyseixvqhttll; 235648-Ziplmzpefwu, Total; 024952-LTI-A (Total); 167120-Qeryr LDL-P; 765364-NSD Size; 691243-YM-XK Scorewas developed and its performance characteristics determinedby [employer]. It has not been cleared or approved by the Foodand Drug Administration.PATIENT WAS FASTINGPERFORMED BY: [employer] [address] [id number] BY: [employer]70 [facility]zoMin[facility] [id number] Lymphocytes (Bld) [#/Vol] 2.1 10*3/uL Normal 0.7-3.1 [facility]; [facility] Work Phone: Comment on above: Test(s) 685851-WPR-O ; 891472-IWV-X; 180970-Hinqqgvnwhepj; 618042-Rwqjuvyoeqt, Total; 489787-PRH-W (Total); 089827-Gebkh LDL-P; 068074-RBZ Size; 859408-QQ-IQ Scorewas developed and its performance characteristics determinedby [employer]. It has not been cleared or approved by the Foodand Drug Administration.PATIENT WAS FASTINGPERFORMED BY: [employer] [address] [id number] BY: [employer]70 [place] PostAtrium Health Union [id number] Lymphocytes/100 WBC (Bld) 32 % Normal [facility] Work Phone: Comment on above: Test(s) 715219-OSY-T ; 641821-WJH-Q; 807048-Pfkgctlhmmpdj; 082814-Jddhnzhokea, Total; 830869-KTD-E (Total); 280055-Xdadd LDL-P; 038191-REV Size; 408850-UD-QG Scorewas developed and its performance characteristics determinedby [employer]. It has not been cleared or approved by the Foodand Drug Administration.PATIENT WAS FASTINGPERFORMED BY: [employer] [address] [id number] BY: Siteheart6370 [facility]Min[facility] [id number] MCH (RBC) [Entitic mass] 28.5 pg Normal 26.6-33.0 [facility] Work Phone: Comment on above: Test(s) 427940-MXN-F ; 199523-XPB-R; 040233-Rrekanzlmdxxe; 224472-Oxugczxazhr, Total; 539362-YQR-B (Total); 031061-Cthei LDL-P; 813219-JQD Size; 308018-AG-JP Scorewas developed and its performance characteristics determinedby [employer]. It has not been cleared or approved by the Foodand Drug Administration.PATIENT WAS FASTINGPERFORMED BY: [employer] [address] [id number] BY: [employer] [facility] [id number] MCHC (RBC) [Mass/Vol] 34.0 g/dL Normal 31.5-35.7 [facility] Work Phone: Comment on above: Test(s) 901086-TPW-Q ; 576291-DBM-H; 621328-Rantzqzslphqr; 244467-Cilzdaytpzq, Total; 724911-DSG-Z (Total); 801037-Rsajj LDL-P; 359856-CRJ Size; 401391-OW-HR Scorewas developed and its performance characteristics determinedby [employer]. It has not been cleared or approved by the Foodand Drug Administration.PATIENT WAS FASTINGPERFORMED BY: [employer] [address] [id number] BY: Siteheart6[address] [facility] [id number] MCV (RBC) [Entitic vol] 84 fL Normal 79-97 [facility] Work Phone: Comment on above: Test(s) 078776-VND-J ; 314201-NVP-T; 239064-Lomwzyajoovfv; 886547-Lcsukjggefn, Total; 149861-CGI-O (Total); 954668-Mmuug LDL-P; 441811-VMA Size; 330520-FB-XE Scorewas developed and its performance characteristics determinedby [employer]. It has not been cleared or approved by the Foodand Drug Administration.PATIENT WAS FASTINGPERFORMED BY: BN [employer]Co[address] [id number] BY: Bubble MotionThe Rehabilitation Hospital of Tinton FallsVbgjdo7434 [facility] [id number] Monocytes (Bld) [#/Vol] 0.4 {x10E3/uL} Normal 0.1-0.9 [facility] Work Phone: Comment on above: Test(s) 379542-MUI-E ; 407395-EWC-T; 529659-Miagzrzodhbki; 061238-Rfbjqiowzjj, Total; 019646-IBS-X (Total); 838375-Hhwyp LDL-P; 102301-ODX Size; 912165-QH-SW Scorewas developed and its performance characteristics determinedby [employer]. It has not been cleared or approved by the Foodand Drug Administration.PATIENT WAS FASTINGPERFORMED BY: [employer] [address] [id number] BY: Siteheart6[address] [facility] [id number] Monocytes (Bld) [#/Vol] 0.4 10*3/uL Normal 0.1-0.9 [facility]; [facility] Work Phone: Comment on above: Test(s) 429792-OIE-B ; 813758-WON-U; 755833-Xntjueprybinm; 198208-Ruhdlgtjoya, Total; 485577-BSP-S (Total); 246384-Ocrcl LDL-P; 466319-NOH Size; 269047-VR-AE Scorewas developed and its performance characteristics determinedby [employer]. It has not been cleared or approved by the Foodand Drug Administration.PATIENT WAS FASTINGPERFORMED BY: [employer] [address] [id number] BY: TalkoThe Rehabilitation Hospital of Tinton FallsRvkiwi6917 [address] [facility] [id number] Monocytes/100 WBC (Bld) 6 % Normal [facility] Work Phone: Comment on above: Test(s) 636848-DFA-X ; 503080-VVI-Z; 187613-Bntuhykgjeaii; 676840-Ijdddxwlrnl, Total; 597586-CKZ-R (Total); 445092-Ugcjf LDL-P; 007418-LBA Size; 274345-JK-OU Scorewas developed and its performance characteristics determinedby [employer]. It has not been cleared or approved by the Foodand Drug Administration.PATIENT WAS FASTINGPERFORMED BY: Bubble Motion[address] [id number] BY: Bubble MotionThe Rehabilitation Hospital of Tinton FallsLrlowa7110 [address] [id number] Neutrophils (Bld) [#/Vol] 3.7 {x10E3/uL} Normal 1.4-7.0 [facility] Work Phone: Comment on above: Test(s) 121337-KBK-W ; 626875-JPA-Z; 795199-Xpolphoutpeij; 148364-Crdjgaooowq, Total; 191954-OVT-T (Total); 174902-Chhtf LDL-P; 405540-LJO Size; 056055-SY-TC Scorewas developed and its performance characteristics determinedby [employer]. It has not been cleared or approved by the Foodand Drug Administration.PATIENT WAS FASTINGPERFORMED BY: [employer] [address] [id number] BY: Bubble MotionMountain View Regional Medical CenterVzexzj9[address] [id number] Neutrophils (Bld) [#/Vol] 3.7 10*3/uL Normal 1.4-7.0 [facility]; [facility] Work Phone: Comment on above: Test(s) 707217-BNJ-K ; 399661-VXA-N; 838224-Igosuvosthkcz; 558026-Gfcxuwccxad, Total; 133717-SRO-K (Total); 022519-Pbjrd LDL-P; 322981-QMF Size; 653447-WL-DT Scorewas developed and its performance characteristics determinedby [employer]. It has not been cleared or approved by the Foodand Drug Administration.PATIENT WAS FASTINGPERFORMED BY: [employer] [address] [id number] BY: Siteheart6370 [facility]zoMin[facility] [id number] Neutrophils/100 WBC (Bld) 59 % Normal [facility] Work Phone: Comment on above: Test(s) 114578-ZTG-K ; 430773-QWI-U; 898688-Yloixoijxnhpn; 196835-Ycjsdzdxnlq, Total; 397953-DZH-K (Total); 951293-Gqyjs LDL-P; 701487-IMM Size; 810609-LT-WZ Scorewas developed and its performance characteristics determinedby [employer]. It has not been cleared or approved by the Foodand Drug Administration.PATIENT WAS FASTINGPERFORMED BY: Moda Operandi[address] [id number] BY: Siteheart6[address] [facility] [id number] Platelets (Bld) [#/Vol] 271 {x10E3/uL} Normal 150-450 [facility] Work Phone: Comment on above: Test(s) 781795-VGJ-X ; 792190-TWI-Z; 664207-Ejmeetymezjfo; 627821-Hrmuwqbbefi, Total; 301797-ATC-G (Total); 950437-Ebhti LDL-P; 508414-DOV Size; 903650-EK-MB Scorewas developed and its performance characteristics determinedby [employer]. It has not been cleared or approved by the Foodand Drug Administration.PATIENT WAS FASTINGPERFORMED BY: Moda Operandi[address] [id number] BY: [place] Afnuhi60[address] [id number] Platelets (Bld) [#/Vol] 271 10*3/uL Normal 150-450 [facility]; [facility] Work Phone: Comment on above: Test(s) 967337-VWN-C ; 282889-YRP-A; 108700-Fbbojeoebwxrf; 034128-Jvizcsrxfvy, Total; 872203-OPL-M (Total); 229818-Bhqye LDL-P; 547451-EFB Size; 345356-LA-LL Scorewas developed and its performance characteristics determinedby [employer]. It has not been cleared or approved by the Foodand Drug Administration.PATIENT WAS FASTINGPERFORMED BY: Mavenlinkrp [address] [id number] BY: [facility] Bpcxoe93[address] [id number] RBC (Bld) [#/Vol] 5.23 {x10E6/uL} Normal 4.14-5.80 [facility] Work Phone: Comment on above: Test(s) 408191-DRW-W ; 566913-GHZ-K; 562779-Btiflvkodpnch; 965747-Xtlzkbejtgn, Total; 495646-OYC-J (Total); 477121-Liktl LDL-P; 161773-TLX Size; 437348-EE-JY Scorewas developed and its performance characteristics determinedby [employer]. It has not been cleared or approved by the Foodand Drug Administration.PATIENT WAS FASTINGPERFORMED BY: Mavenlinkrp [address] [id number] BY: Bubble Motionrp Pjxneq6[address] [id number] RBC (Bld) [#/Vol] 5.23 10*6/uL Normal 4.14-5.80 [facility]; [facility] Work Phone: Comment on above: Test(s) 549080-QVM-F ; 083345-VWQ-K; 282663-Txnbxugjbrimw; 902651-Odgxqcwikia, Total; 301876-BLR-F (Total); 578300-Kbmij LDL-P; 712457-LXO Size; 808024-CZ-WY Scorewas developed and its performance characteristics determinedby [employer]. It has not been cleared or approved by the Foodand Drug Administration.PATIENT WAS FASTINGPERFORMED BY: [employer] [facility] [address] [id number] BY: LabVena Solutionsrp Afdhti88[address] [id number] WBC (Bld) [#/Vol] 6.4 {x10E3/uL} Normal 3.4-10.8 [facility] Internal Medicine Work Phone: Comment on above: Test(s) 416944-SNE-D ; 735620-QBB-R; 750797-Kfzaztjtmxagu; 153350-Vrgcccmgajf, Total; 777763-SJG-F (Total); 848201-Xmddv LDL-P; 509585-BNM Size; 674373-EK-JL Scorewas developed and its performance characteristics determinedby [employer]. It has not been cleared or approved by the Foodand Drug Administration.PATIENT WAS FASTINGPERFORMED BY: Moda Operandi[address] [id number] BY: [employer] [id number] WBC (Bld) [#/Vol] 6.4 10*3/uL Normal 3.4-10.8 [facility] Internal Medicine; [facility] Internal [facility] Work Phone: Comment on above: Test(s) 278388-GPM-O ; 416959-NCW-J; 255974-Dnecrjsdzrkmy; 470523-Gpxgxcrqgxt, Total; 273292-EFI-R (Total); 001851-Hbviv LDL-P; 634044-WLL Size; 584140-BM-PN Scorewas developed and its performance characteristics determinedby [employer]. It has not been cleared or approved by the Foodand Drug Administration.PATIENT WAS FASTINGPERFORMED BY: Moda Operandi[address] [id number] BY: Siteheart[address] [id number] METABOLIC PANEL, COMPREHENSI VE (94893)Ordered By: Manager [employer] on 11-11-2019 Albumin [Mass/Vol] 4.5 g/dL Normal 3.8-4.9 [facility] Internal Medicine Work Phone: Comment on above: Test(s) 050740-FIQ-T ; 649376-EOM-N; 846100-Yauzajajgzwxg; 810652-Fouuvqsqohm, Total; 749896-ZXX-N (Total); 699414-Afsgs LDL-P; 675158-NDN Size; 734153-EF-QT Scorewas developed and its performance characteristics determinedby [employer]. It has not been cleared or approved by the Foodand Drug Administration.PATIENT WAS FASTINGPERFORMED BY: Mavenlink[address] [id number] BY: Bubble Motion Gydfpm8622 [facility] [id number] Albumin/Globulin [Mass ratio] 1.6 {ratio} Normal 1.2-2.2 [facility] Work Phone: Comment on above: Test(s) 333439-GBF-U ; 106060-FXD-W; 885413-Surjslyuyydlh; 366953-Thzpzrdlaqx, Total; 491099-VBS-H (Total); 767123-Qevex LDL-P; 410258-QYD Size; 031819-DE-UQ Scorewas developed and its performance characteristics determinedby [employer]. It has not been cleared or approved by the Foodand Drug Administration.PATIENT WAS FASTINGPERFORMED BY: [employer]es [address] [id number] BY: [employer]70 GameGeneticsAtrium Health [id number] ALP [Catalytic activity/Vol] 50 [iU]/L Normal 39-117 [facility] Work Phone: Comment on above: Test(s) 012497-KFM-E ; 936524-OEW-W; 315240-Yhibrndcjyafw; 338270-Dfcwezjqaxy, Total; 202847-IIV-B (Total); 428672-Tqbgx LDL-P; 301666-JUK Size; 679719-WV-GP Scorewas developed and its performance characteristics determinedby [employer]. It has not been cleared or approved by the Foodand Drug Administration.PATIENT WAS FASTINGPERFORMED BY: Mavenlink[address] [id number] BY: TalkoThe [facility] Hospital of Tinton FallsGfcdey7205 [address] People Operating TechnologyAtrium Health [id number] ALP [Catalytic activity/Vol] 50 U/L Normal 39-117 [facility]; [facility] Work Phone: Comment on above: Test(s) 769707-UZS-I ; 660624-SRT-W; 156362-Aifzuxsxekqma; 682182-Pmkkocwwhdz, Total; 224779-NLF-A (Total); 392960-Mnqkf LDL-P; 077375-DPF Size; 780388-QP-HL Scorewas developed and its performance characteristics determinedby [employer]um[employer]. It has not been cleared or approved by the Foodand Drug Administration.PATIENT WAS FASTINGPERFORMED BY: [employer] [address] [id number] BY: Madvenue Nfehuq4[address] [id number] ALT [Catalytic activity/Vol] 59 [iU]/L Abnormal 0-44 [facility] Work Phone: Comment on above: Test(s) 445210-TNB-E ; 811292-GUY-H; 840718-Dzfbrxbdrhuti; 984473-Jfmtapbmaqx, Total; 105803-YPR-C (Total); 655953-Vkkmv LDL-P; 625085-WTQ Size; 746527-SN-GW Scorewas developed and its performance characteristics determinedby [employer]. It has not been cleared or approved by the Foodand Drug Administration.PATIENT WAS FASTINGPERFORMED BY: [employer] [address] [id number] BY: Madvenue Liqcka8748 [address] [id number] ALT [Catalytic activity/Vol] 59 U/L Abnormal 0-44 [facility]; [facility] Work Phone: Comment on above: Test(s) 243460-VIH-I ; 284180-QHC-X; 288725-Agaxicycprsvm; 202614-Czqogeooqtk, Total; 296109-MGQ-S (Total); 379157-Agoyz LDL-P; 898915-RSL Size; 164260-RG-QE Scorewas developed and its performance characteristics determinedby [employer]. It has not been cleared or approved by the Foodand Drug Administration.PATIENT WAS FASTINGPERFORMED BY: [employer] Kmfkkgjuiq0101 [facility] [id number] BY: Bubble MotionThe Rehabilitation Hospital of Tinton FallsCyczly6741 [address] [id number] AST [Catalytic activity/Vol] 32 [iU]/L Normal 0-40 [facility] Work Phone: Comment on above: Test(s) 052612-ODO-N ; 177710-BIE-I; 720137-Vlxpaqmdvjzvl; 503246-Phtpzvvhtqh, Total; 359250-FHY-I (Total); 715124-Xysya LDL-P; 082901-LAN Size; 227613-MV-SI Scorewas developed and its performance characteristics determinedby [employer]. It has not been cleared or approved by the Foodand Drug Administration.PATIENT WAS FASTINGPERFORMED BY: [employer] [address] [id number] BY: Emergent Healthlin6370 [address] [id number] AST [Catalytic activity/Vol] 32 U/L Normal 0-40 [facility]; [facility] Work Phone: Comment on above: Test(s) 928249-USB-I ; 147857-BTQ-B; 800470-Dswynegfqixts; 530189-Avdhsfzjtkc, Total; 977845-EHE-E (Total); 292635-Vimen LDL-P; 391233-NPE Size; 406323-NK-WF Scorewas developed and its performance characteristics determinedby [employer]. It has not been cleared or approved by the Foodand Drug Administration.PATIENT WAS FASTINGPERFORMED BY: [employer] [address] [id number] BY: Bubble MotionThe Rehabilitation Hospital of Tinton FallsTpafli0143 [address] [id number] Bilirubin [Mass/Vol] 0.5 mg/dL Normal 0.0-1.2 [facility] Work Phone: Comment on above: Test(s) 340668-JFG-F ; 485450-RXA-D; 866803-Zsifgnbgodgkh; 400410-Pldmvncruhy, Total; 845756-FPL-Z (Total); 458539-Onfad LDL-P; 458890-GYV Size; 544690-LA-ZV Scorewas developed and its performance characteristics determinedby [employer]. It has not been cleared or approved by the Foodand Drug Administration.PATIENT WAS FASTINGPERFORMED BY: [employer] [address] [id number] BY: [employer]70 [place] PostAt[facility] Union [id number] Calcium [Mass/Vol] 9.6 mg/dL Normal 8.7-10.2 [facility] Internal Medicine Work Phone: Comment on above: Test(s) 627498-ABS-Y ; 167318-ROY-P; 259079-Yffzosjcnxckx; 857990-Hvbyoqkixbf, Total; 377484-KYX-Z (Total); 176204-Nkkui LDL-P; 128198-EBZ Size; 373309-UO-OO Scorewas developed and its performance characteristics determinedby [employer]. It has not been cleared or approved by the Foodand Drug Administration.PATIENT WAS FASTINGPERFORMED BY: [employer] [address] [id number] BY: [employer]70 [place] PostAt[facility] [id number] Chloride [Moles/Vol] 101 mmol/L Normal 96-106 [facility] Internal Medicine Work Phone: Comment on above: Test(s) 701531-EAF-K ; 306486-ZZW-Q; 347103-Gdsmhsrmfucor; 333196-Mgrpcesscft, Total; 780075-XEQ-H (Total); 461990-Fyjfz LDL-P; 196649-VXN Size; 474967-LB-LO Scorewas developed and its performance characteristics determinedby [employer]. It has not been cleared or approved by the Foodand Drug Administration.PATIENT WAS FASTINGPERFORMED BY: [employer] [address] [id number] BY: [employer]70 [place] [facility] [id number] CO2 [Moles/Vol] 20 mmol/L Normal 20-29 Sofiya sherman Internal Medicine Work Phone: Comment on above: Test(s) 895224-GGP-N ; 091119-YPB-K; 430774-Qkajwrwcwgxty; 771736-Hjdpxrkneit, Total; 974248-YDX-Z (Total); 803112-Yigfr LDL-P; 160998-IEQ Size; 374388-DQ-QZ Scorewas developed and its performance characteristics determinedby [employer]. It has not been cleared or approved by the Foodand Drug Administration.PATIENT WAS FASTINGPERFORMED BY: [employer] [id number] BY: [employer] [id number] Creatinine [Mass/Vol] 1.01 mg/dL Normal 0.76-1.27 [facility] Work Phone: Comment on above: Test(s) 639743-IAW-X ; 550310-IIY-N; 921425-Dgocyxaznoxlh; 337063-Salrippfhak, Total; 219227-SHP-T (Total); 450659-Oburx LDL-P; 137403-AEO Size; 444133-OB-RA Scorewas developed and its performance characteristics determinedby [employer]. It has not been cleared or approved by the FoodAnzhi.com Drug Administration.PATIENT WAS FASTINGPERFORMED BY: [employer] [id number] BY: Siteheart6[address] [id number] GFR/1.73 sq M predicted among blacks CKD-EPI (S/P/Bld) [Vol rate/Area] 99 mL/min/1.73 Normal [facility] Work Phone: Comment on above: Test(s) 282346-NCW-R ; 694904-OQW-F; 870853-Xdfkfeaesakln; 445064-Oarwtlcgkfq, Total; 061680-SOX-E (Total); 023436-Uzpiv LDL-P; 029470-WCW Size; 401149-FF-OR Scorewas developed and its performance characteristics determinedby [employer]TV. It has not been cleared or approved by the Foodand Drug Administration.PATIENT WAS FASTINGPERFORMED BY: [employer] [address] [id number] BY: Bubble MotionMountain View Regional Medical CenterAlyucu1834 [address] [id number] GFR/1.73 sq M predicted among non-blacks CKD-EPI (S/P/Bld) [Vol rate/Area] 86 mL/min/1.73 Normal [facility] Work Phone: Comment on above: Test(s) 877259-YGH-O ; 355920-XTQ-C; 517788-Pvyxlzooqvzqt; 437132-Zziwjwuiicm, Total; 446468-SOL-T (Total); 074198-Voycj LDL-P; 181806-RWC Size; 518961-TL-YN Scorewas developed and its performance characteristics determinedby [employer]umTV. It has not been cleared or approved by the Foodand Drug Administration.PATIENT WAS FASTINGPERFORMED BY: [employer] [address] [id number] BY: [employer] [id number] Globulin (S) [Mass/Vol] 2.8 g/dL Normal 1.5-4.5 [facility] Work Phone: Comment on above: Test(s) 546877-YFM-X ; 859734-BRK-Y; 626745-Fsmyghjmmqsuw; 110406-Oyfsthbbbey, Total; 214642-NLI-J (Total); 593075-Dqojv LDL-P; 927196-NAN Size; 239459-SI-IO Scorewas developed and its performance characteristics determinedby [employer]umTV. It has not been cleared or approved by the Foodand Drug Administration.PATIENT WAS FASTINGPERFORMED BY: Mavenlink[address] [id number] BY: Bubble MotionThe Rehabilitation Hospital of Tinton FallsMgkava1481 [address] [id number] Glucose [Mass/Vol] 148 mg/dL Abnormal 65-99 [facility] Internal Medicine Work Phone: Comment on above: Test(s) 014230-XUY-Y ; 014424-DKB-P; 186671-Fyddodaziibzv; 754682-Yxcplsioyvh, Total; 335854-SIB-A (Total); 445887-Htcgg LDL-P; 099922-SLH Size; 010609-OD-TK Scorewas developed and its performance characteristics determinedby [employer]TV. It has not been cleared or approved by the Foodand Drug Administration.PATIENT WAS FASTINGPERFORMED BY: [employer] [address] [id number] BY: [employer]70 [place] Post[facility] [id number] Potassium [Moles/Vol] 4.3 mmol/L Normal 3.5-5.2 [facility] Internal Medicine Work Phone: Comment on above: Test(s) 057040-MSC-O ; 415675-ZJC-R; 402430-Iptlqrcvlpiyo; 194354-Ptzqzinkdme, Total; 882552-CNI-L (Total); 568415-Wowrg LDL-P; 642556-EWB Size; 007558-FH-DH Scorewas developed and its performance characteristics determinedby PlumTV. It has not been cleared or approved by the Foodand Drug Administration.PATIENT WAS FASTINGPERFORMED BY: [employer] [address] [id number] BY: Siteheart6[address] [place] People Operating TechnologyAtrium Health [id number] Protein [Mass/Vol] 7.3 g/dL Normal 6.0-8.5 [facility] Work Phone: Comment on above: Test(s) 637768-CUT-A ; 970977-KFT-X; 068770-Hplkhhnlcsejy; 431015-Qrisjbfpxql, Total; 870991-OZS-Q (Total); 314994-Igmry LDL-P; 946568-EAW Size; 193014-YR-ZJ Scorewas developed and its performance characteristics determinedby [employer]TV. It has not been cleared or approved by the Foodand Drug Administration.PATIENT WAS FASTINGPERFORMED BY: Mavenlink[address] [id number] BY: Bubble MotionThe Rehabilitation Hospital of Tinton FallsJgfmyu2381 [address] [id number] Sodium [Moles/Vol] 140 mmol/L Normal 134-144 [facility] Work Phone: Comment on above: Test(s) 297273-YLM-H ; 110214-QLU-J; 111039-Vsbhcshrkurpy; 877696-Gawrxykvlok, Total; 430927-ZSH-O (Total); 083277-Wjumr LDL-P; 924812-LAL Size; 027825-LV-FY Scorewas developed and its performance characteristics determinedby [employer]umTV. It has not been cleared or approved by the Foodand Drug Administration.PATIENT WAS FASTINGPERFORMED BY: [employer] [address] [id number] BY: Emergent Healthlin6[address] [id number] Urea nitrogen [Mass/Vol] 16 mg/dL Normal 6-24 [facility] Internal [facility] Work Phone: Comment on above: Test(s) 308454-ACF-T ; 531776-MYK-T; 600281-Uhatyxiblfovu; 202077-Mazyajjikxl, Total; 509911-DLQ-W (Total); 478047-Zpyut LDL-P; 101529-GSA Size; 076078-GU-FV Scorewas developed and its performance characteristics determinedby PlumTV. It has not been cleared or approved by the Foodand Drug Administration.PATIENT WAS FASTINGPERFORMED BY: [employer] [address] [id number] BY: Bubble MotionThe Rehabilitation Hospital of Tinton FallsFhilpg2199 [address] [id number] Urea nitrogen/Creatinine [Mass ratio] 16 mg/mg Normal 9-20 [facility] Work Phone: Comment on above: Test(s) 079489-EHS-S ; 245236-NZU-C; 789215-Pzthcervagqlq; 828816-Kkvydfxwucc, Total; 567991-KEZ-G (Total); 265732-Lrywm LDL-P; 829218-LGK Size; 133135-JF-AD Scorewas developed and its performance characteristics determinedby PlumTV. 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 It has not been cleared or approved by the Foodand Drug Administration.PATIENT WAS FASTINGPERFORMED BY: [employer] [address] [id number] BY: Madvenue Dsuzls4888 [address] [id number] Albumin/Creatinine (U) [Mass ratio] 6 {mg/g_creat} Normal 0-29 [facility] Work Phone: Comment on above: Normal: 0 - 29 Moder ately increased: 30 - 300 Severely increased: >300 Please note reference interval change Test(s) 720478-HFY-H ; 193920-BMB-L; 162404-Socddlikmkmbm; 058287-Jbngqzwfliq, Total; 376958-IAN-U (Total); 646766-Toaax LDL-P; 300270-LSN Size; 382365-AE-WI Scorewas developed and its performance characteristics determinedby PlumTV. It has not been cleared or approved by the Foodand Drug Administration.PATIENT WAS FASTINGPERFORMED BY: BN [facility] [address] [id number] BY: Siteheart6[address] [id number] Creatinine (U) [Mass/Vol] 129.4 mg/dL Normal [facility] Work Phone: Comment on above: Test(s) 665552-BBL-E ; 936747-LBY-J; 792854-Mguyqqzttakvf; 831860-Qbygnqqjuxl, Total; 363475-HZZ-Y (Total); 058105-Yicfh LDL-P; 351892-LJB Size; 742612-LD-VW Scorewas developed and its performance characteristics determinedby PlumTV. It has not been cleared or approved by the Foodand Drug Administration.PATIENT WAS FASTINGPERFORMED BY: [employer] [address] [id number] BY: Siteheart6[address] [id number] NMR Profile (20499)Ordered B y: Manager Talent Management on 11-11-2019 Cholesterol [Mass/Vol] 179 mg/dL Normal 100-199 [facility] Work Phone: Comment on above: Test(s) 291121-RWL-M ; 003713-MBJ-F; 284979-Qsgetndcogeus; 946615-Qyizzidiabz, Total; 665784-YZI-Z (Total); 947868-Pvzej LDL-P; 520822-WZI Size; 836169-HM-MG Scorewas developed and its performance characteristics determinedby PlumTV. It has not been cleared or approved by the Foodand Drug Administration.PATIENT WAS FASTINGPERFORMED BY: [employer] [address] [id number] BY: Emergent Healthlin6[address] [id number] Lipoprotein.alpha [Moles/Vol] 28.6 umol/L Abnormal [facility] Work Phone: Comment on above: Test(s) 170137-WJV-X ; 394623-KUZ-Y; 448124-Ctywguszlloze; 346108-Ikytmnlamli, Total; 448824-PXY-E (Total); 601769-Hbgrq LDL-P; 770769-SNY Size; 600506-WQ-QM Scorewas developed and its performance characteristics determinedby PlumTV. It has not been cleared or approved by the Foodand Drug Administration.PATIENT WAS FASTINGPERFORMED BY: BN [facility] Oyxbhlspvi0640 [facility] [id number] BY: CB [facility] Mpbxck5[address] [id number] Lipoprotein.beta.sub particle [Entitic length] 19.6 nm Abnormal [facility] Work Phone: Comment on above: INTERPRETATIVE INFORMATION PARTICLE CONCENTRATION AND SIZE <--Lower CVD Risk Higher CVD Risk--> LDL AND HDL PARTICLES Percentile in Reference Population HDL-P (total) High 75th 50th 25th Low >34.9 34.9 30.5 26.7 <26.7 . Small LDL-P Low 25th 50th 75th High <117 117 527 839 >839 . LDL Size <-Large (Pattern A)-> <-Small (Pattern B)-> 23.0 20.6 20.5 19.0 Small LDL-P and LDL Size are associated with CVD risk, but not afterLDL-P is taken into account. Test(s) 721037-NGZ-D ; 840863-NWF-O; 818157-Hucekmdvjqtri; 009047-Praemtgwwck, Total; 570954-IFB-C (Total); 825636-Afors LDL-P; 568838-RVP Size; 551335-LZ-MI Scorewas developed and its performance characteristics determinedby PlumTV. It has not been cleared or approved by the Foodand Drug Administration.PATIENT WAS FASTINGPERFORMED BY: [employer]a [employer] [id number] BY: Talko Lrjjau9610 GameGeneticsAtrium Health [id number] Lipoprotein.beta.sub particle [Moles/Vol] 1318 nmol/L Abnormal Comprehensi Internal Medicine Work Phone: Comment on above: Low < 1000 Moderate 1000 - 1299 Borderline-High 1300 - 1599 High 1600 - 2000 Very High > 2000 Test(s) 430444-CAO-I ; 829844-PUQ-C; 693480-Jehwafwljwwxy; 516107-Keqpmiojoer, Total; 650667-GSO-M (Total); 267494-Vggyw LDL-P; 960956-QQH Size; 551063-YI-VW Scorewas developed and its performance characteristics determinedby PlumTV. It has not been cleared or approved by the Foodand Drug Administration.PATIENT WAS FASTINGPERFORMED BY: [employer] [id number] BY: Siteheart6370 [place] People Operating TechnologyAtrium Health [id number] Lipoprotein.beta.sub particle.small [Moles/Vol] 1005 nmol/L Abnormal [facility] Internal Medicine Work Phone: Comment on above: Test(s) 355928-TYU-E ; 530665-CJG-V; 113970-Zbrtquvuktvay; 541049-Stmwyluekrq, Total; 806242-TLH-M (Total); 307115-Dalnq LDL-P; 643323-HKJ Size; 795396-GI-LM Scorewas developed and its performance characteristics determinedby PlumTV. It has not been cleared or approved by the Foodand Drug Administration.PATIENT WAS FASTINGPERFORMED BY: [employer] [address] [id number] BY: Talko Rnirwx5060 [address] [id number] Triglyceride [Mass/Vol] 246 mg/dL Abnormal 0-149 [facility] Work Phone: Comment on above: Test(s) 310400-OGZ-I ; 429311-AAY-W; 063782-Gpnmfachrqgzq; 029291-Khorngookyh, Total; 604402-MFX-B (Total); 254705-Uuycu LDL-P; 910124-MQM Size; 140053-KZ-YG Scorewas developed and its performance characteristics determinedby PlumTV. It has not been cleared or approved by the Foodand Drug Administration.PATIENT WAS FASTINGPERFORMED BY: [employer] Hwgwyxnmye6241 [facility] [id number] BY: Mad[place] Jzlqgq8849 [address] [id number] NMR Profile (16479) 30 mg/dL Abnormal [facility] Internal Medicine Work Phone: Comment on above: Test(s) 214483-LWH-M ; 588393-SHM-V; 480999-Yurkrfesipsie; 866150-Ymcppoowehw, Total; 987066-WQH-D (Total); 312767-Jtxwh LDL-P; 008062-JSV Size; 288327-QX-LW Scorewas developed and its performance characteristics determinedby PlumTV. It has not been cleared or approved by the Foodand Drug Administration.PATIENT WAS FASTINGPERFORMED BY: [employer] Qvackkpwat8456 [facility] [id number] BY: [employer] Gtjfnz2596 [address] [id number] NMR Profile (71553) 106 mg/dL Abnormal 0-99 [facility] Internal [facility] Work Phone: Comment on above: . Optimal < 100 Abov e optimal 100 - 129 Borderline 130 - 159 High 160 - 189 Very high > 189 . Test(s) 966358-TUM-G ; 396350-GPK-C; 851385-Uoyywoaylzctr; 194307-Cvuvwbddqph, Total; 169240-GBZ-T (Total); 397032-Huolr LDL-P; 357646-TGO Size; 389969-TJ-XY Scorewas developed and its performance characteristics determinedby PlumTV. It has not been cleared or approved by the Foodand Drug Administration.PATIENT WAS FASTINGPERFORMED BY: Moda Operanditon1447 [facility] [id number] BY: [facility] [id number] NMR Profile (33887) 246 mg/dL Abnormal 0-149 Compr ehensive Internal Medicine; [facility] Work Phone: NMR Profile (68565) 179 mg/dL Normal 100-199 Compr ehensive Internal Medicine; [facility] Work Phone: TSH (THYROID STIMULATING HOR BRYN) (65419)Ordered By: Manager Talent Management on 11-11-2019 TSH Qn 3.810 {uIU/mL} Normal 0.450-4.50 0 [facility] Work Phone: Comment on above: Test(s) 741897-ERD-K ; 411510-DEZ-P; 742695-Yltzfxplkaugd; 461481-Yalsxuegcjx, Total; 049122-WCN-M (Total); 076924-Sbaik LDL-P; 695939-VGR Size; 710314-EZ-IJ Scorewas developed and its performance characteristics determinedby PlumTV. It has not been cleared or approved by the Foodand Drug Administration.PATIENT WAS FASTINGPERFORMED BY: Bubble MotionDan [place] 353417 [facility] [id number] BY: [facility] City HospitalVena SolutionsThe Rehabilitation Hospital of Tinton FallsQgdrmm25[address] [id number] Blood Glucose , Office ([phone])Ordered By: Angelica Meneses on 07-22-2019 Glucose Glucometer (BldC) [Moles/Vol] 167 1 Normal [facility] Work Phone: HgA1C , Office ([phone])Ordere d By: Marva Wang on 07-22-2019 HbA1c (Bld) [Mass fraction] 7.0 % Normal 4.6 - 7.1 [facility] Work Phone: SARS-CoV-2 Antibody, IgGOrde red By: Manager Talent Management on 07-22-2019 SARS-CoV-2 Antibody, IgG Negative Normal [facility] Work Phone: Comment on above: This sample does not contain detectable SARS-CoV-2 IgG antibodies.This negative result does not rule out SARS-CoV-2 infection.Correlation with epidemiologic risk factors and other clinical andlaboratory findings is recommended. Serologic results should not beused as the sole basis to diagnose or exclude recent NXKZ-GfO-6crgyhkngc.This assay was performed using the Pina SARS-CoV-2 IgG assay. Test(s) 962245-ZSIP- CoV-2 Antibody, IgGhas not been FDA cleared or approved. This test hasbeen authorized by FDA under an Emergency Use Authorization(EUA). This test is only authorized for the duration of thedeclaration that circumstances exist justifying the authorizationof emergency use of in vitro diagnostics for detection and/ordiagnosis of COVID-19 under Section 564(b)(1) of the Act, 21U.S.C. 360bbb-3(b)(1), unless the authorization is terminated orrevoked sooner. This test has been authorized only for detectingthe presence of antibodies against SARS-CoV-2, not for any otherviruses or pathogens.PATIENT NOT FASTINGPERFORMED BY: [facility] [place] [id number] SARS-CoV-2 Antibody, IgG Negative Normal [facility]; [facility] Work Phone: Comment on above: This sample does not contain detectable SARS-CoV-2 IgG antibodies.This negative result does not rule out SARS-CoV-2 infection.Correlation with epidemiologic risk factors and other clinical andlaboratory findings is recommended. Serologic results should not beused as the sole basis to diagnose or exclude recent LDAA-KfS-9vifctjfsg.This assay was performed using the Pina SARS-CoV-2 IgG assay. Test(s) 866460-VBAH- CoV-2 Antibody, IgGhas not been FDA cleared or approved. This test hasbeen authorized by FDA under an Emergency Use Authorization(EUA). This test is only authorized for the duration of thedeclaration that circumstances exist justifying the authorizationof emergency use of in vitro diagnostics for detection and/ordiagnosis of COVID-19 under Section 564(b)(1) of the Act, 21U.S.C. 360bbb-3(b)(1), unless the authorization is terminated orrevoked sooner. This test has been authorized only for detectingthe presence of antibodies against SARS-CoV-2, not for any otherviruses or pathogens.PATIENT NOT FASTINGPERFORMED BY: Bubble MotionThe Rehabilitation Hospital of Tinton FallsYqzned3266 [address] [id number] CALCIFIDIOL (47869) VIT D 25 Ordered By: Manager Talent Management on 06-24-2019 25-Hydroxyvitamin D2+25-Hydroxyvitamin D3 [Mass/Vol] 45.6 ng/mL Normal 30.0-100.0 [facility] Work Phone: Comment on above: Vitamin D deficiency has been defined by the [place] of[place] and an Endocrine Society practice guideline as alevel of serum 25-OH vitamin D less than 20 ng/mL (1,2).The Endocrine Society went on to further define vitamin Dinsufficiency as a level between 21 and 29 ng/mL (2).1. IOM ([place] of [employer]). 2010. Dietary reference intakes for calcium and D. [place]: The National Academies Press.2. Magno MF, Do MILES, Jos PRATER, et al. Evaluation, treatment, and prevention of vitamin D deficiency: an Endocrine Society clinical practice guideline. JCEM. 2010; 96(7):1911-30. Test(s) 733152-XGB-Z ; 647584-BDS-B; 596107-CRC-K; 223691-Kksrmrrncgswc; 537774-Ilkworiztuk, Total; 249275-BDI-C (Total);732528-Dmgji LDL-P; 429665-QYI Size; 712551-XJ-ZT Scorewas developed and its performance characteristics determinedby PlumTV. It has not been cleared or approved by the Foodand Drug Administration.PATIENT WAS FASTINGPERFORMED BY: Bubble MotionDan [place] 353417 [facility] [id number] BY: Bubble MotionThe Rehabilitation Hospital of Tinton FallsCazyuq4662 [address] [id number] CBC W/AUTO DIFF WBC (76987)O rdered By: Manager Talent Management on 06-24-2019 Basophils (Bld) [#/Vol] 0.0 {x10E3/uL} Normal 0.0-0.2 [facility] Work Phone: Comment on above: Test(s) 961178-QLQ-C ; 904544-PRG-Y; 470645-PKL-H; 936007-Klsoykoqropxv; 770798-Nuqgdlbtfag, Total; 080968-XYE-M (Total);021440-Odaav LDL-P; 378169-GUX Size; 355555-DG-OQ Scorewas developed and its performance characteristics determinedby [employer]. It has not been cleared or approved by the Foodand Drug Administration.PATIENT WAS FASTINGPERFORMED BY: [employer] [address] [id number] BY: [employer]70 [facility] [id number] Basophils (Bld) [#/Vol] 0.0 10*3/uL Normal 0.0-0.2 [facility]; [facility] Work Phone: Comment on above: Test(s) 616218-BEJ-B ; 877947-XYI-Y; 305417-AAB-J; 887150-Lojhvrmoavrnr; 986019-Zajuhbrkadv, Total; 335071-SWN-U (Total);559337-Lbrit LDL-P; 732913-BNI Size; 496792-PW-RW Scorewas developed and its performance characteristics determinedby [employer]. It has not been cleared or approved by the Foodand Drug Administration.PATIENT WAS FASTINGPERFORMED BY: [employer] [address] [id number] BY: Siteheart[address] [facility] [id number] Basophils/100 WBC (Bld) 1 % Normal [facility] Work Phone: Comment on above: Test(s) 209829-YZA-I ; 950920-BYE-Y; 592830-XKL-I; 289949-Vqjvkcwfzepuo; 644056-Limsqqtenmi, Total; 561478-VOE-I (Total);903718-Egpxi LDL-P; 849438-RYY Size; 391565-JN-OL Scorewas developed and its performance characteristics determinedby [employer]. It has not been cleared or approved by the Foodand Drug Administration.PATIENT WAS FASTINGPERFORMED BY: Bubble Motion[address] [id number] BY: Bubble MotionThe Rehabilitation Hospital of Tinton FallsVcjelg26[address] [id number] Eosinophils (Bld) [#/Vol] 0.1 {x10E3/uL} Normal 0.0-0.4 [facility] Work Phone: Comment on above: Test(s) 142961-FTC-J ; 160450-NDH-M; 425815-XOL-H; 169266-Akefebjkqgykb; 245179-Qylgelazueo, Total; 003322-UOG-Q (Total);422233-Odbyf LDL-P; 738749-XOM Size; 049228-CO-XX Scorewas developed and its performance characteristics determinedby [employer]. It has not been cleared or approved by the Foodand Drug Administration.PATIENT WAS FASTINGPERFORMED BY: [employer] [address] [id number] BY: Bubble MotionMountain View Regional Medical CenterZqdipp85[address] [id number] Eosinophils (Bld) [#/Vol] 0.1 10*3/uL Normal 0.0-0.4 [facility]; [facility] Work Phone: Comment on above: Test(s) 449850-UDO-S ; 404650-POL-K; 459977-LCI-Q; 124238-Ronasrtcndpoy; 199449-Wwekhvotiey, Total; 986658-JJK-Q (Total);837963-Yevgc LDL-P; 963756-GPV Size; 008368-OI-PF Scorewas developed and its performance characteristics determinedby [employer]. It has not been cleared or approved by the Foodand Drug Administration.PATIENT WAS FASTINGPERFORMED BY: Bubble Motion[address] [id number] BY: [employer] Xrtnqs87[address] [facility] [id number] Eosinophils/100 WBC (Bld) 3 % Normal [facility] Work Phone: Comment on above: Test(s) 429834-QTT-Q ; 229985-FOY-F; 343848-JKK-W; 149717-Idzxwjgfsyowt; 550983-Uyygrpmrsmp, Total; 538351-WWO-I (Total);733544-Dpxir LDL-P; 514567-MDT Size; 207210-VX-HG Scorewas developed and its performance characteristics determinedby [employer]. It has not been cleared or approved by the Foodand Drug Administration.PATIENT WAS FASTINGPERFORMED BY: [employer] [address] [id number] BY: [employer] [id number] Erythrocyte distribution width (RBC) [Ratio] 14.2 % Normal 11.6-15.4 [facility] Work Phone: Comment on above: Test(s) 323451-VHP-S ; 338698-CSB-S; 987398-PZQ-W; 686556-Lfoecqfflxtrh; 099324-Iwovnnsqsas, Total; 973467-MSW-B (Total);001513-Ewiuk LDL-P; 911023-OIH Size; 772461-VK-QJ Scorewas developed and its performance characteristics determinedby [employer]. It has not been cleared or approved by the Foodand Drug Administration.PATIENT WAS FASTINGPERFORMED BY: [employer] [address] [id number] BY: Siteheart[address] [id number] Hematocrit (Bld) [Volume fraction] 45.2 % Normal 37.5-51.0 [facility] Work Phone: Comment on above: Test(s) 230855-SEA-V ; 513589-ZRK-R; 977661-MNN-S; 414712-Fautlhurkqfeg; 111973-Drbppenyicw, Total; 782065-UGJ-O (Total);731620-Rjlpz LDL-P; 738858-XKY Size; 415750-TG-TW Scorewas developed and its performance characteristics determinedby [employer]. It has not been cleared or approved by the Foodand Drug Administration.PATIENT WAS FASTINGPERFORMED BY: Mavenlink[address] [id number] BY: Bubble MotionThe Rehabilitation Hospital of Tinton FallsYfatzn1007 [address] [id number] Hemoglobin (Bld) [Mass/Vol] 14.9 g/dL Normal 13.0-17.7 [facility] Work Phone: Comment on above: Test(s) 453775-QLS-S ; 287295-UTU-K; 443477-KBJ-Z; 266677-Mloqfgsvdxvun; 670089-Yqnuqtqoiyf, Total; 991699-OMK-H (Total);207560-Joprc LDL-P; 094329-FEG Size; 151909-SY-VG Scorewas developed and its performance characteristics determinedby [employer]. It has not been cleared or approved by the Foodand Drug Administration.PATIENT WAS FASTINGPERFORMED BY: [employer] [address] [id number] BY: Emergent Healthlin6[address] [id number] Immature granulocytes (Bld) [#/Vol] 0.0 {x10E3/uL} Normal 0.0-0.1 [facility] Work Phone: Comment on above: Test(s) 521878-FJT-J ; 786337-HMF-K; 165296-WEY-Y; 668184-Ornvesvhaofak; 722118-Ktxbbeyjupm, Total; 188813-DLI-L (Total);878480-Vfgzu LDL-P; 290072-UXU Size; 020450-EN-EN Scorewas developed and its performance characteristics determinedby [employer]. It has not been cleared or approved by the Foodand Drug Administration.PATIENT WAS FASTINGPERFORMED BY: Bubble Motion[address] [id number] BY: Bubble MotionThe Rehabilitation Hospital of Tinton FallsSjtdwd9630 [address] [id number] Immature granulocytes (Bld) [#/Vol] 0.0 10*3/uL Normal 0.0-0.1 [facility]; [facility] Work Phone: Comment on above: Test(s) 569539-CDZ-X ; 741654-WTT-H; 181307-IGX-C; 522498-Jsocbngpxgpur; 252286-Uzayekrkksv, Total; 311383-TCU-N (Total);803495-Zfyjp LDL-P; 023408-RIS Size; 174064-PU-LH Scorewas developed and its performance characteristics determinedby [employer]. It has not been cleared or approved by the Foodand Drug Administration.PATIENT WAS FASTINGPERFORMED BY: [employer] [address] [id number] BY: PersonalingAtrium Health Union [id number] Immature granulocytes/100 WBC (Bld) 0 % Normal [facility] Work Phone: Comment on above: Test(s) 653944-WWZ-S ; 112157-CKH-R; 324701-UGT-X; 653074-Weopnnumumdzh; 076923-Aadqiamvvij, Total; 185436-SAQ-D (Total);646731-Wxnti LDL-P; 825057-UQX Size; 716995-YL-FN Scorewas developed and its performance characteristics determinedby [employer]. It has not been cleared or approved by the Foodand Drug Administration.PATIENT WAS FASTINGPERFORMED BY: [employer] [address] [id number] BY: [employer]70 [place] People Operating TechnologyAtrium Health [id number] Lymphocytes (Bld) [#/Vol] 1.7 {x10E3/uL} Normal 0.7-3.1 [facility] Work Phone: Comment on above: Test(s) 410351-RHV-V ; 312398-PSC-I; 273955-VAP-W; 869769-Mvhvsowvefiqn; 667080-Ifrhaydxtqg, Total; 024270-WCC-R (Total);863455-Nxszk LDL-P; 341980-GHE Size; 299366-IW-HJ Scorewas developed and its performance characteristics determinedby [employer]. It has not been cleared or approved by the Foodand Drug Administration.PATIENT WAS FASTINGPERFORMED BY: [employer] [address] [id number] BY: [employer]70 [place] PostAtrium Health Union [id number] Lymphocytes (Bld) [#/Vol] 1.7 10*3/uL Normal 0.7-3.1 [facility]; [facility] Work Phone: Comment on above: Test(s) 038554-PKO-J ; 068397-LJQ-K; 544801-BMN-T; 260861-Borcipbhyotme; 897396-Tooqjyrgzbl, Total; 326343-FZU-R (Total);954015-Xbtii LDL-P; 463207-GUR Size; 081831-JG-BU Scorewas developed and its performance characteristics determinedby [employer]. It has not been cleared or approved by the Foodand Drug Administration.PATIENT WAS FASTINGPERFORMED BY: Mod[employer]andi[address] [id number] BY: Siteheart6370 [place]esp[place] PostAtrium Health Union [id number] Lymphocytes/100 WBC (Bld) 37 % Normal [facility] Work Phone: Comment on above: Test(s) 459647-UHD-S ; 830331-XPE-V; 689033-SJN-Z; 331502-Eapstkjbldwnf; 827706-Eghgihppoyw, Total; 745652-JTK-G (Total);182207-Epvzf LDL-P; 225508-OBY Size; 880735-TQ-RT Scorewas developed and its performance characteristics determinedby [employer]. It has not been cleared or approved by the Foodand Drug Administration.PATIENT WAS FASTINGPERFORMED BY: [employer] [address] [id number] BY: Talko Cwaibd5457 [place] People Operating TechnologyAtrium Health [id number] MCH (RBC) [Entitic mass] 27.5 pg Normal 26.6-33.0 [facility] Work Phone: Comment on above: Test(s) 712476-CUJ-Y ; 949771-KXW-W; 291585-IJC-Z; 520007-Wajkcglewsfsy; 345179-Tsgemumgpij, Total; 956805-OFL-J (Total);804041-Lrzmt LDL-P; 118796-SGC Size; 343803-GT-AR Scorewas developed and its performance characteristics determinedby [employer]. It has not been cleared or approved by the Foodand Drug Administration.PATIENT WAS FASTINGPERFORMED BY: [employer] [address] [id number] BY: Madvenue Kevsts80[address] [id number] MCHC (RBC) [Mass/Vol] 33.0 g/dL Normal 31.5-35.7 [facility] Work Phone: Comment on above: Test(s) 668811-BTC-H ; 146048-RMW-A; 018451-YCP-F; 831548-Xwioglyhmnouw; 297017-Esgczsvpmgo, Total; 312899-NYU-R (Total);258146-Jgtnj LDL-P; 947006-GXX Size; 316526-EP-UJ Scorewas developed and its performance characteristics determinedby [employer]. It has not been cleared or approved by the Foodand Drug Administration.PATIENT WAS FASTINGPERFORMED BY: [employer] [address] [id number] BY: Madvenue Udhnrl380[address] [id number] MCV (RBC) [Entitic vol] 83 fL Normal 79-97 [facility] Work Phone: Comment on above: Test(s) 548177-PSQ-U ; 491165-ADO-K; 131421-QMK-B; 598002-Ekcupynlnujmi; 425532-Nrykednnahx, Total; 456316-VPO-B (Total);223393-Anrsy LDL-P; 343189-MTQ Size; 858677-WO-OJ Scorewas developed and its performance characteristics determinedby [employer]. It has not been cleared or approved by the Foodand Drug Administration.PATIENT WAS FASTINGPERFORMED BY: Mavenlink[address] [id number] BY: Bubble Motion Uvkhti36[address] [id number] Monocytes (Bld) [#/Vol] 0.3 {x10E3/uL} Normal 0.1-0.9 [facility] Work Phone: Comment on above: Test(s) 189057-OHI-S ; 291263-ZGI-B; 452471-SUJ-F; 739342-Vhcgaxzvufeby; 206510-Fpqvstljtjk, Total; 406608-XOA-M (Total);640944-Vawcr LDL-P; 979029-QMQ Size; 127181-UC-TQ Scorewas developed and its performance characteristics determinedby [employer]. It has not been cleared or approved by the Foodand Drug Administration.PATIENT WAS FASTINGPERFORMED BY: [employer] [address] [id number] BY: Siteheart[address] [id number] Monocytes (Bld) [#/Vol] 0.3 10*3/uL Normal 0.1-0.9 [facility]; [facility] Work Phone: Comment on above: Test(s) 688169-FAA-B ; 055975-MMS-E; 161297-TIR-O; 306625-Awqyvwpqgmlst; 276566-Gjhxruwaglm, Total; 876032-UPB-V (Total);276985-Aqmyf LDL-P; 554338-KSZ Size; 463499-IR-UO Scorewas developed and its performance characteristics determinedby [employer]. It has not been cleared or approved by the Foodand Drug Administration.PATIENT WAS FASTINGPERFORMED BY: Mavenlink[address] [id number] BY: Talko Ixtdsz3[address] [id number] Monocytes/100 WBC (Bld) 7 % Normal [facility] Work Phone: Comment on above: Test(s) 015701-ABG-N ; 410559-VJJ-M; 307916-ARG-E; 696128-Samymqkndzyzd; 231932-Dnrohybrglw, Total; 300062-PZV-P (Total);808453-Agxmy LDL-P; 413974-AVO Size; 320919-MQ-OR Scorewas developed and its performance characteristics determinedby [employer]. It has not been cleared or approved by the Foodand Drug Administration.PATIENT WAS FASTINGPERFORMED BY: [employer] [address] [id number] BY: [employer] Lcwwhi95[address] [id number] Neutrophils (Bld) [#/Vol] 2.5 {x10E3/uL} Normal 1.4-7.0 [facility] Work Phone: Comment on above: Test(s) 825082-CLK-A ; 630081-PVL-S; 292709-KCP-Q; 091193-Oasgnxcrwcpvi; 404844-Mnmkwkecklx, Total; 161528-QMH-U (Total);966400-Ehmae LDL-P; 502258-QYB Size; 065780-CX-SX Scorewas developed and its performance characteristics determinedby [employer]. It has not been cleared or approved by the Foodand Drug Administration.PATIENT WAS FASTINGPERFORMED BY: [employer]um[employer] [address] [id number] BY: [employer] Ouello98[address] [id number] Neutrophils (Bld) [#/Vol] 2.5 10*3/uL Normal 1.4-7.0 [facility]; [facility] Work Phone: Comment on above: Test(s) 976149-YNI-X ; 943785-HBW-E; 804797-YSS-N; 471444-Fmzpldhwntocm; 654573-Rtdghuiyfbn, Total; 665200-WTD-V (Total);873382-Zikbe LDL-P; 093770-PXM Size; 549419-IK-PY Scorewas developed and its performance characteristics determinedby [employer]um[employer]. It has not been cleared or approved by the Foodand Drug Administration.PATIENT WAS FASTINGPERFORMED BY: [employer] [address] [id number] BY: [employer]70 [facility]zoMin[facility] [id number] Neutrophils/100 WBC (Bld) 52 % Normal [facility] Work Phone: Comment on above: Test(s) 953248-BHL-D ; 569610-CLG-W; 275488-KCG-R; 910804-Oxhiwcngxqohr; 377442-Lbqfkbpvprw, Total; 109896-NPP-U (Total);436226-Cqlin LDL-P; 703285-NXC Size; 620502-CW-SF Scorewas developed and its performance characteristics determinedby [employer]um[employer]. It has not been cleared or approved by the Foodand Drug Administration.PATIENT WAS FASTINGPERFORMED BY: [employer] [id number] BY: Siteheart6[address] [id number] Platelets (Bld) [#/Vol] 268 {x10E3/uL} Normal 150-450 [facility] Work Phone: Comment on above: Test(s) 766741-HZH-Q ; 610350-KYS-E; 737288-TYN-B; 056773-Fpyhakrercjei; 545251-Invmgwkvcxt, Total; 218015-APE-Y (Total);686053-Fahxa LDL-P; 761428-ZTO Size; 718605-NC-SE Scorewas developed and its performance characteristics determinedby [employer]um[employer]. It has not been cleared or approved by the Foodand Drug Administration.PATIENT WAS FASTINGPERFORMED BY: [employer] [address] [id number] BY: Madvenue Osfzeh50[address] [id number] Platelets (Bld) [#/Vol] 268 10*3/uL Normal 150-450 [facility]; [facility] Work Phone: Comment on above: Test(s) 263612-AIS-N ; 313183-WVH-Z; 581727-PBC-R; 135813-Pplecxmsairxb; 713085-Etqsvcqxpun, Total; 084671-OYT-L (Total);237076-Mcfbq LDL-P; 931329-ERV Size; 016113-WQ-ML Scorewas developed and its performance characteristics determinedby PlumTV. It has not been cleared or approved by the Foodand Drug Administration.PATIENT WAS FASTINGPERFORMED BY: [employer] [address] [id number] BY: Siteheart[address] [id number] RBC (Bld) [#/Vol] 5.42 {x10E6/uL} Normal 4.14-5.80 [facility] Internal [facility] Work Phone: Comment on above: Test(s) 561047-CVZ-G ; 669482-DFL-L; 515686-HYN-D; 668590-Wrcctgbbovzoy; 429637-Mkgdyocvlur, Total; 120836-IZN-W (Total);285025-Vkrea LDL-P; 918170-XDU Size; 953427-FU-JP Scorewas developed and its performance characteristics determinedby [employer]um[employer]. It has not been cleared or approved by the Foodand Drug Administration.PATIENT WAS FASTINGPERFORMED BY: [employer] [address] [id number] BY: Siteheart[address] [id number] RBC (Bld) [#/Vol] 5.42 10*6/uL Normal 4.14-5.80 [facility]; [facility] Work Phone: Comment on above: Test(s) 268539-UDX-B ; 633759-ALF-V; 674622-DFJ-O; 775213-Hixcdyghwzvpo; 649198-Umgxllkxeml, Total; 092324-WRS-A (Total);218481-Qlvve LDL-P; 722998-ABI Size; 051531-GH-ZU Scorewas developed and its performance characteristics determinedby PlumTV. It has not been cleared or approved by the Foodand Drug Administration.PATIENT WAS FASTINGPERFORMED BY: [employer]a [employer]andi[address] [id number] BY: Bubble Motion Akuqej[address] [id number] WBC (Bld) [#/Vol] 4.7 {x10E3/uL} Normal 3.4-10.8 [facility] Work Phone: Comment on above: Test(s) 899188-UIG-T ; 997830-DEB-C; 896412-TET-Z; 793043-Imteqwibmplqc; 236017-Jytmsywqftv, Total; 717885-SJT-W (Total);412555-Avqot LDL-P; 420651-IYR Size; 731609-GL-SZ Scorewas developed and its performance characteristics determinedby Plum[employer]. It has not been cleared or approved by the Foodand Drug Administration.PATIENT WAS FASTINGPERFORMED BY: [employer]a [employer]andi[address] [id number] BY: Siteheart[address] [id number] WBC (Bld) [#/Vol] 4.7 10*3/uL Normal 3.4-10.8 [facility] Internal [facility]; [facility] Work Phone: Comment on above: Test(s) 927118-IMM-D ; 789971-UGZ-O; 105117-YKP-I; 401077-Lisysgpumloyc; 360076-Qghnnnfeoki, Total; 425766-ZAG-G (Total);470804-Iwznh LDL-P; 377710-JFL Size; 782748-DA-NW Scorewas developed and its performance characteristics determinedby PlumTV. It has not been cleared or approved by the Foodand Drug Administration.PATIENT WAS FASTINGPERFORMED BY: Moda Operandi[address] [id number] BY: Madvenue Zlrexw59[address] [id number] METABOLIC PANEL, COMPREHENSI VE (62100)Ordered By: Manager [employer] on 06-24-2019 Albumin [Mass/Vol] 4.4 g/dL Normal 3.8-4.9 [facility] Work Phone: Comment on above: Test(s) 649300-YTG-R ; 632887-FAJ-O; 124180-QZO-I; 579105-Gutautzolegnp; 796110-Vbpuqmmrqvi, Total; 695285-SDR-H (Total);142384-Cdaiq LDL-P; 545306-TMF Size; 967822-VR-AL Scorewas developed and its performance characteristics determinedby Plum[employer]. It has not been cleared or approved by the Foodand Drug Administration.PATIENT WAS FASTINGPERFORMED BY: Moda Operandi[address] [id number] BY: [employer]70 [employer] [place] [id number] Albumin/Globulin [Mass ratio] 1.6 {ratio} Normal 1.2-2.2 [facility] Internal Medicine Work Phone: Comment on above: Test(s) 570178-GNW-G ; 805000-NJP-J; 780508-ZPN-O; 601450-Vnfytiztirnlk; 974581-Endapqmedfq, Total; 957415-KPE-S (Total);184989-Hstrf LDL-P; 385534-XFZ Size; 905332-NV-YX Scorewas developed and its performance characteristics determinedby Plum[employer]. It has not been cleared or approved by the Foodand Drug Administration.PATIENT WAS FASTINGPERFORMED BY: Moda Operandi[address] [id number] BY: Siteheart6[address] [employer] [place] [id number] ALP [Catalytic activity/Vol] 49 [iU]/L Normal 39-117 [facility] Work Phone: Comment on above: Test(s) 613332-ZTM-S ; 896957-QGT-H; 871027-WTB-P; 817406-Vwyjlfapbcitw; 142701-Bdtghijkplw, Total; 748194-VAQ-G (Total);974891-Udhpi LDL-P; 799953-IFO Size; 134823-CH-CN Scorewas developed and its performance characteristics determinedby [employer]. It has not been cleared or approved by the Foodand Drug Administration.PATIENT WAS FASTINGPERFORMED BY: Bubble Motion[address] [id number] BY: Bubble MotionMountain View Regional Medical CenterFeknjt39[address] [id number] ALP [Catalytic activity/Vol] 49 U/L Normal 39-117 [facility]; [facility] Work Phone: Comment on above: Test(s) 483240-SGO-D ; 601160-NKV-X; 362278-YXH-R; 900574-Ilfkpzpdklfyf; 869424-Bcmiujfjfxb, Total; 250691-CQG-M (Total);263262-Nupox LDL-P; 420485-PCD Size; 967578-QQ-CZ Scorewas developed and its performance characteristics determinedby [employer]um[employer]. It has not been cleared or approved by the Foodand Drug Administration.PATIENT WAS FASTINGPERFORMED BY: PlumTV [address] [id number] BY: Bubble Motion Jokysi4224 [place] People Operating TechnologyAtrium Health [id number] ALT [Catalytic activity/Vol] 94 [iU]/L Abnormal 0-44 [facility] Internal Medicine Work Phone: Comment on above: Test(s) 489024-SJO-D ; 729049-ULT-Z; 739405-DTE-D; 824524-Yruaubizeexxl; 385554-Otaepeafazz, Total; 247609-WAB-M (Total);136078-Svlan LDL-P; 983873-SUT Size; 219719-VU-YV Scorewas developed and its performance characteristics determinedby [employer]um[employer]. It has not been cleared or approved by the Foodand Drug Administration.PATIENT WAS FASTINGPERFORMED BY: Bubble Motion[address] [id number] BY: Bubble MotionThe Rehabilitation Hospital of Tinton FallsKjhpze15[address] [id number] ALT [Catalytic activity/Vol] 94 U/L Abnormal 0-44 [facility]; [facility] Work Phone: Comment on above: Test(s) 589985-ALB-F ; 169229-EYD-K; 190225-QCT-N; 243171-Ocqsnoqylizxo; 047152-Rviyzwtydyp, Total; 455809-IHR-U (Total);073066-Hpvvu LDL-P; 925170-BIZ Size; 304837-BK-TT Scorewas developed and its performance characteristics determinedby [employer]. It has not been cleared or approved by the Foodand Drug Administration.PATIENT WAS FASTINGPERFORMED BY: [employer] [address] [id number] BY: Madvenue Kdbeal29[address] [id number] AST [Catalytic activity/Vol] 49 [iU]/L Abnormal 0-40 [facility] Work Phone: Comment on above: Test(s) 170838-XWK-Z ; 865982-RNU-P; 344556-OCM-K; 775532-Zhohhhemtqimh; 370019-Onimfiunurk, Total; 250066-YGO-J (Total);474030-Tklen LDL-P; 082152-ODA Size; 256374-PB-OT Scorewas developed and its performance characteristics determinedby [employer]. It has not been cleared or approved by the Foodand Drug Administration.PATIENT WAS FASTINGPERFORMED BY: PlumTV [address] [id number] BY: [employer] Flumhu[address] [id number] AST [Catalytic activity/Vol] 49 U/L Abnormal 0-40 [facility]; [facility] Work Phone: Comment on above: Test(s) 608404-DBW-R ; 938541-XWQ-G; 772800-FMX-O; 500556-Ukpyzejnzmmor; 880102-Pekhfikpmqc, Total; 095741-KHW-M (Total);976874-Qgkrt LDL-P; 499998-FQX Size; 824964-MF-DO Scorewas developed and its performance characteristics determinedby [employer]. It has not been cleared or approved by the Foodand Drug Administration.PATIENT WAS FASTINGPERFORMED BY: Bubble Motion[address] [id number] BY: Bubble MotionThe Rehabilitation Hospital of Tinton FallsIgdlyy12[address] [id number] Bilirubin [Mass/Vol] 0.7 mg/dL Normal 0.0-1.2 [facility] Internal Medicine Work Phone: Comment on above: Test(s) 535959-TXE-G ; 193759-NLH-P; 798597-PZS-N; 252930-Yobpkkdeplmpy; 742601-Yuiacpdayks, Total; 717012-YQS-Y (Total);200940-Qdjkx LDL-P; 651714-ODP Size; 034054-MT-DG Scorewas developed and its performance characteristics determinedby [employer]. It has not been cleared or approved by the Foodand Drug Administration.PATIENT WAS FASTINGPERFORMED BY: [employer] [address] [id number] BY: [employer] Dhupao[address] [id number] Calcium [Mass/Vol] 9.1 mg/dL Normal 8.7-10.2 [facility] Internal Medicine Work Phone: Comment on above: Test(s) 539038-XZE-H ; 282831-NHF-H; 366464-JUW-K; 236964-Ezpjvciawyrdm; 768743-Tfyqkzhoavn, Total; 291245-FZB-W (Total);143885-Segdr LDL-P; 745299-JWJ Size; 961225-JM-MN Scorewas developed and its performance characteristics determinedby Plum[employer]. It has not been cleared or approved by the Foodand Drug Administration.PATIENT WAS FASTINGPERFORMED BY: Bubble Motion[address] [id number] BY: Bubble MotionThe Rehabilitation Hospital of Tinton FallsAbjmfd7393 [address] [id number] Chloride [Moles/Vol] 100 mmol/L Normal 96-106 [facility] Internal Medicine Work Phone: Comment on above: Test(s) 000552-GLG-Z ; 251275-ORP-H; 136746-LAI-C; 196743-Tykrrhvnuvpfh; 926993-Jxqegqdfngc, Total; 846423-SAE-P (Total);297706-Dytss LDL-P; 109776-MVP Size; 939807-MI-II Scorewas developed and its performance characteristics determinedby Plum[employer]. It has not been cleared or approved by the Foodand Drug Administration.PATIENT WAS FASTINGPERFORMED BY: [employer] [address] [id number] BY: [employer]70 [place] People Operating TechnologyAtrium Health [id number] CO2 [Moles/Vol] 22 mmol/L Normal 20-29 [facility] Internal Medicine Work Phone: Comment on above: Test(s) 932800-WPS-P ; 074293-YJW-M; 304340-PYR-I; 923165-Ucoqaklhzouhh; 386975-Ewbnfpqqtda, Total; 091392-RAH-B (Total);990036-Htkei LDL-P; 893633-PUQ Size; 901159-CG-TA Scorewas developed and its performance characteristics determinedby [employer]um[employer]. It has not been cleared or approved by the Foodand Drug Administration.PATIENT WAS FASTINGPERFORMED BY: [employer] [address] [id number] BY: Siteheart6370 [facility]zoMin[facility] [id number] Creatinine [Mass/Vol] 0.96 mg/dL Normal 0.76-1.27 [facility] Internal Medicine Work Phone: Comment on above: Test(s) 795898-KLL-Q ; 239362-KSO-P; 125956-RTW-P; 821050-Jefkicwddvytx; 022698-Qsvxxycxgfq, Total; 439731-DLY-T (Total);871208-Hzijb LDL-P; 006030-CYN Size; 343867-XU-SO Scorewas developed and its performance characteristics determinedby [employer]um[employer]. It has not been cleared or approved by the Foodand Drug Administration.PATIENT WAS FASTINGPERFORMED BY: [employer] [address] [id number] BY: Bubble Motion Yspcfm0658 [address] [id number] GFR/1.73 sq M predicted among blacks CKD-EPI (S/P/Bld) [Vol rate/Area] 105 mL/min/1.73 Normal [facility] Work Phone: Comment on above: Test(s) 333674-ESG-O ; 822742-FOB-T; 873691-PIQ-M; 879752-Lqtwghgletlrw; 949191-Xpdyzcvbsxn, Total; 091476-RVC-B (Total);325939-Fmzvj LDL-P; 061036-FBF Size; 509557-LW-IV Scorewas developed and its performance characteristics determinedby Plum[employer]. It has not been cleared or approved by the Foodand Drug Administration.PATIENT WAS FASTINGPERFORMED BY: [employer] [address] [id number] BY: Bubble Motion Ysemim8323 [place] People Operating TechnologyAtrium Health [id number] GFR/1.73 sq M predicted among non-blacks CKD-EPI (S/P/Bld) [Vol rate/Area] 91 mL/min/1.73 Normal [facility] Work Phone: Comment on above: Test(s) 217660-VJR-K ; 199490-AFH-W; 793301-EHH-P; 391879-Yngavdpaewkrv; 087457-Msbtayjfaec, Total; 518674-UKV-P (Total);078589-Btwnh LDL-P; 527038-AMB Size; 847501-DE-SV Scorewas developed and its performance characteristics determinedby PlumTV. It has not been cleared or approved by the Foodand Drug Administration.PATIENT WAS FASTINGPERFORMED BY: [employer] [address] [id number] BY: PlumTV Sswiad3979 [address] [id number] Globulin (S) [Mass/Vol] 2.7 g/dL Normal 1.5-4.5 [facility] Internal Medicine Work Phone: Comment on above: Test(s) 177943-GPQ-A ; 221649-EES-D; 808376-FXS-V; 430466-Jvfjwbxmdpxgo; 205557-Ovifqzuoyka, Total; 041188-TKM-Y (Total);238070-Cqang LDL-P; 903475-LYJ Size; 576828-YA-RS Scorewas developed and its performance characteristics determinedby PlumTV. It has not been cleared or approved by the Foodand Drug Administration.PATIENT WAS FASTINGPERFORMED BY: Moda Operandi[address] [id number] BY: [employer] [id number] Glucose [Mass/Vol] 145 mg/dL Abnormal 65-99 [facility] Internal Medicine Work Phone: Comment on above: Test(s) 774771-XDF-R ; 849598-PTL-Q; 106260-IJR-X; 399913-Wsjirkwajuulb; 665797-Gglfewbvxlj, Total; 137729-VXF-I (Total);706586-Flwik LDL-P; 463891-BTP Size; 521635-OT-AB Scorewas developed and its performance characteristics determinedby PlumTV. It has not been cleared or approved by the Foodand Drug Administration.PATIENT WAS FASTINGPERFORMED BY: Moda Operandi[address] [id number] BY: Siteheart6[address] [id number] Potassium [Moles/Vol] 4.6 mmol/L Normal 3.5-5.2 [facility] Internal Medicine Work Phone: Comment on above: Test(s) 337610-DFQ-U ; 834747-NRY-E; 139589-MKK-S; 248837-Sbcgfnptioavp; 609172-Yugqguwiefv, Total; 386928-NWQ-S (Total);523009-Zqxdx LDL-P; 854170-SIB Size; 438812-WL-EO Scorewas developed and its performance characteristics determinedby PlumTV. It has not been cleared or approved by the Foodand Drug Administration.PATIENT WAS FASTINGPERFORMED BY: Bubble Motion[address] [id number] BY: Bubble MotionMountain View Regional Medical CenterSflivb2668 [address] [id number] Protein [Mass/Vol] 7.1 g/dL Normal 6.0-8.5 [facility] Internal Medicine Work Phone: Comment on above: Test(s) 018691-CWH-F ; 130450-KLB-U; 529684-ZVC-A; 597416-Ayrngrrfldilr; 104339-Xjekuhzxflp, Total; 267861-ZCD-T (Total);608905-Yoayp LDL-P; 424305-DMV Size; 650955-AL-YF Scorewas developed and its performance characteristics determinedby PlumTV. It has not been cleared or approved by the Foodand Drug Administration.PATIENT WAS FASTINGPERFORMED BY: PlumTV [address] [id number] BY: Bubble Motion Ljutth9[address] [id number] Sodium [Moles/Vol] 139 mmol/L Normal 134-144 [facility] Medicine Work Phone: Comment on above: Test(s) 295232-TIL-O ; 158309-FYX-P; 720826-XPW-X; 301409-Hymwhketcroyy; 850442-Wfeufajtzpa, Total; 359430-HTO-G (Total);680409-Qtkxi LDL-P; 487895-CNP Size; 896143-WS-HP Scorewas developed and its performance characteristics determinedby PlumTV. It has not been cleared or approved by the Foodand Drug Administration.PATIENT WAS FASTINGPERFORMED BY: Bubble Motion[address] [id number] BY: Bubble MotionThe Rehabilitation Hospital of Tinton FallsVrkhrf6632 [address] [id number] Urea nitrogen [Mass/Vol] 14 mg/dL Normal 6-24 [facility] Work Phone: Comment on above: Test(s) 269529-YWS-Y ; 431312-MXU-C; 413345-GJI-B; 355529-Xaaoixyuxgrpg; 989442-Fbocdvxzvob, Total; 874055-YSZ-Y (Total);913199-Mhdjd LDL-P; 953187-CSL Size; 100154-OE-WL Scorewas developed and its performance characteristics determinedby PlumTV. It has not been cleared or approved by the Foodand Drug Administration.PATIENT WAS FASTINGPERFORMED BY: Moda Operandi[address] [id number] BY: [employer]70 GameGeneticsAtrium Health [id number] Urea nitrogen/Creatinine [Mass ratio] 15 mg/mg Normal 9- [facility] Work Phone: Comment on above: Test(s) 132072-HTS-F ; 019801-HVS-B; 665737-WKO-F; 936857-Zmvsxazfigzgw; 884009-Dosinqrenrd, Total; 428133-LOJ-J (Total);684191-Ubnrg LDL-P; 770343-ZCH Size; 774377-JZ-CK Scorewas developed and its performance characteristics determinedby [employer]umTV. It has not been cleared or approved by the Foodand Drug Administration.PATIENT WAS FASTINGPERFORMED BY: [employer] [address] [id number] BY: [employer]70 [facility]zoMineral [facility] Center [id number] MICROALBUMINOrdered By: Syst em Hydraulic Hammer Operator on 06-24-2019 Albumin DL <= 20 mg/L (U) [Mass/Vol] 3.8 ug/mL Normal Comprehensiv e Internal Medicine Work Phone: Comment on above: Test(s) 282458-LKH-X ; 312943-MOA-P; 932814-CYI-P; 722240-Aokjwponmwnzd; 429499-Dswtwgctsdy, Total; 166953-DYQ-W (Total);114288-Papeu LDL-P; 417546-VFO Size; 175309-UE-GA Scorewas developed and its performance characteristics determinedby PlumTV. It has not been cleared or approved by the Foodand Drug Administration.PATIENT WAS FASTINGPERFORMED BY: [employer] [address] [id number] BY: Talko Odrpxq90[address] [id number] Albumin/Creatinine (U) [Mass ratio] 3 {mg/g_creat} Normal 0-29 [facility] Work Phone: Comment on above: Normal: 0 - 29 Moder ately increased: 30 - 300 Severely increased: >300 Please note reference interval change Test(s) 674873-LTN-O ; 978854-OVT-P; 420256-VAY-O; 797903-Iabcszqikdrrv; 456570-Hfxwmizeuvk, Total; 207845-BLH-Z (Total);310917-Gutyc LDL-P; 365440-FMB Size; 399788-KA-LE Scorewas developed and its performance characteristics determinedby PlumTV. It has not been cleared or approved by the FoodAnzhi.com Drug Administration.PATIENT WAS FASTINGPERFORMED BY: [employer] [address] [id number] BY: [employer] [id number] Creatinine (U) [Mass/Vol] 127.5 mg/dL Normal [facility] Work Phone: Comment on above: Test(s) 196356-YRE-M ; 743018-OTN-I; 062350-NFG-X; 565564-Xkoqdrscwuqlj; 371458-Mkfmsltmqds, Total; 468332-OYZ-N (Total);316154-Mtuqf LDL-P; 878198-WPS Size; 148363-KJ-SC Scorewas developed and its performance characteristics determinedby PlumTV. It has not been cleared or approved by the Foodand Drug Administration.PATIENT WAS FASTINGPERFORMED BY: [employer] [address] [id number] BY: [place] Vlwzdq0583 [address] [id number] NMR Profile (37282)Ordered B y: Manager Talent Management on 06-24-2019 Cholesterol [Mass/Vol] 237 mg/dL Abnormal 100-199 [facility] Work Phone: Comment on above: Test(s) 478629-YUE-D ; 579830-UHH-T; 013471-RRE-Y; 413286-Ratkenjsvfqmw; 063903-Lhpnbjaywzf, Total; 197204-DZC-F (Total);342195-Yawxz LDL-P; 660070-CCI Size; 277348-JP-DH Scorewas developed and its performance characteristics determinedby PlumTV. It has not been cleared or approved by the Foodand Drug Administration.PATIENT WAS FASTINGPERFORMED BY: Moda Operandi[address] [id number] BY: [employer]70 [facility] SystemXinyi NetworkAtrium Health Union [id number] Cholesterol in LDL [Mass/Vol] TRIGHI Normal 0-99 [facility] Work Phone: Comment on above: Triglyceride result indicated is too high for an accurate LDLcholesterol estimation. . Optimal < 100 Above optimal 100 - 129 Borderline 130 - 159 High 160 - 189 Very high > 189 .LDL-C is inaccurate if patient is non-fasting. Test(s) 016598-HDR-D ; 248168-GXT-C; 546274-ABB-U; 094410-Ukjvkqfunhqpi; 191484-Tkmjbjrjfnb, Total; 131066-RKW-K (Total);357000-Lmigh LDL-P; 537819-RLH Size; 355665-CS-HA Scorewas developed and its performance characteristics determinedby PlumTV. It has not been cleared or approved by the Foodand Drug Administration.PATIENT WAS FASTINGPERFORMED BY: [employer] [address] [id number] BY: [employer] [id number] Lipoprotein.alpha [Moles/Vol] 34.2 umol/L Normal [facility] Work Phone: Comment on above: Test(s) 557226-EOE-E ; 839493-GXJ-O; 468970-SVV-Y; 919270-Butzjwqlvjrdg; 678545-Ztmogtufoid, Total; 754059-MVE-P (Total);285224-Gfpmb LDL-P; 454567-MBC Size; 563512-WO-AT Scorewas developed and its performance characteristics determinedby [employer]. It has not been cleared or approved by the Foodand Drug Administration.PATIENT WAS FASTINGPERFORMED BY: BN [facility] Ekmafchtsn3614 [facility] [id number] BY: CB [facility] Ehwrrh8[address] [id number] Lipoprotein.beta.sub particle [Entitic length] 19.8 nm Abnormal [facility] Work Phone: Comment on above: INTERPRETATIVE INFORMATION PARTICLE CONCENTRATION AND SIZE <--Lower CVD Risk Higher CVD Risk--> LDL AND HDL PARTICLES Percentile in Reference Population HDL-P (total) High 75th 50th 25th Low >34.9 34.9 30.5 26.7 <26.7 . Small LDL-P Low 25th 50th 75th High <117 117 527 839 >839 . LDL Size <-Large (Pattern A)-> <-Small (Pattern B)-> 23.0 20.6 20.5 19.0 Small LDL-P and LDL Size are associated with CVD risk, but not afterLDL-P is taken into account. Test(s) 923810-UBU-V ; 130751-KQX-Q; 012219-KUU-T; 083183-Yodiacnnmigjm; 756270-Fnktxopxdlo, Total; 286294-BKT-M (Total);295518-Mqtyj LDL-P; 530001-DYB Size; 597596-TT-ZY Scorewas developed and its performance characteristics determinedby PlumTV. It has not been cleared or approved by the Foodand Drug Administration.PATIENT WAS FASTINGPERFORMED BY: [employer] [address] [id number] BY: Bubble Motion Ykxcxy5636 [address] [id number] Lipoprotein.beta.sub particle [Moles/Vol] 1478 nmol/L Abnormal [facility] Internal Medicine Work Phone: Comment on above: Low < 1000 Moderate 1000 - 1299 Borderline-High 1300 - 1599 High 1600 - 2000 Very High > 2000 Test(s) 263968-VUC-A ; 984228-XJY-L; 001940-NWX-T; 972070-Glaekfazftvmw; 944821-Tahuqukkwqx, Total; 065845-YKV-T (Total);993497-Jwdkn LDL-P; 487303-BAA Size; 687621-JY-TA Scorewas developed and its performance characteristics determinedby PlumTV. It has not been cleared or approved by the Foodand Drug Administration.PATIENT WAS FASTINGPERFORMED BY: [employer] [address] [id number] BY: [employer] [id number] Lipoprotein.beta.sub particle.small [Moles/Vol] 905 nmol/L Abnormal [facility] Internal Medicine Work Phone: Comment on above: Test(s) 606712-JTU-O ; 987024-MUS-Q; 258391-PSN-A; 537712-Kgjehovyksumv; 226477-Qlrbccoomds, Total; 216270-ICF-T (Total);074767-Uvfzy LDL-P; 945471-VWR Size; 441691-PD-PE Scorewas developed and its performance characteristics determinedby PlumTV. It has not been cleared or approved by the Foodand Drug Administration.PATIENT WAS FASTINGPERFORMED BY: [employer] [address] [id number] BY: [employer] [id number] Triglyceride [Mass/Vol] 464 mg/dL Abnormal 0-149 [facility] Work Phone: Comment on above: Test(s) 725576-NMJ-S ; 332568-FYF-D; 793647-QVJ-H; 032781-Tdjccnaymmxuu; 884716-Lfpflkndyum, Total; 510274-DYK-F (Total);174611-Uroqe LDL-P; 845563-PIW Size; 883433-DE-OI Scorewas developed and its performance characteristics determinedby PlumTV. It has not been cleared or approved by the Foodand Drug Administration.PATIENT WAS FASTINGPERFORMED BY: Inventergy[address] [place] [address] [id number] BY: Siteheart6[address] [id number] NMR Profile (64082) 38 mg/dL Abnormal Compr [facility] Internal Medicine Work Phone: Comment on above: Test(s) 272797-KMW-S ; 012798-MBO-K; 172719-TOX-M; 841945-Kbygsgnelkish; 534534-Ybqjrkluacy, Total; 719710-JVX-X (Total);551152-Uhdlp LDL-P; 525063-TDD Size; 094449-NO-ZO Scorewas developed and its performance characteristics determinedby PlumTV. It has not been cleared or approved by the Foodand Drug Administration.PATIENT WAS FASTINGPERFORMED BY: Moda Operandi[address] [id number] BY: [place] Sqiqou3977 [address] [id number] NMR Profile (82694) TRIGHI Normal 0-99 Compr ensive Internal Medicine; [facility] Work Phone: Comment on above: Triglyceride result indicated is too high for an accurate LDLcholesterol estimation. . Optimal < 100 Above optimal 100 - 129 Borderline 130 - 159 High 160 - 189 Very high > 189 .LDL-C is inaccurate if patient is non-fasting. Test(s) 996265-NTT-M ; 363122-TCM-J; 321203-UTH-D; 407102-Uoudcjtjwahzi; 253583-Ppetsncoafl, Total; 060489-HUG-B (Total);838613-Pffex LDL-P; 444187-UOE Size; 166240-IY-AT Scorewas developed and its performance characteristics determinedby PlumTV. It has not been cleared or approved by the Foodand Drug Administration.PATIENT WAS FASTINGPERFORMED BY: [employer] [address] [id number] BY: [employer] [id number] NMR Profile (40327) 464 mg/dL Abnormal 0-149 Compr ehensive Internal Medicine; [facility] Work Phone: NMR Profile (04386) 237 mg/dL Abnormal 100-199 Compr ehensive Internal Medicine; [facility] Work Phone: TSH (70111)Ordered By: [employer] m Hydraulic Hammer Operator on 06-24-2019 TSH Qn 3.210 {uIU/mL} Normal 0.450-4.50 0 [facility] Work Phone: Comment on above: Test(s) 167578-CRZ-I ; 978917-GUX-L; 811606-GYT-V; 445787-Mcshrafsuanmg; 221415-Wjayllmbbrs, Total; 018626-ZRU-Y (Total);123114-Ezkgc LDL-P; 386042-AHV Size; 540198-NR-WO Scorewas developed and its performance characteristics determinedby PlumTV. It has not been cleared or approved by the Foodand Drug Administration.PATIENT WAS FASTINGPERFORMED BY: [employer] [address] [id number] BY: Siteheart6[address] [id number] URINALYSIS, W/ MICRO (26303) Ordered By: Manager Talent Management on 06-24-2019 Appearance (U) Clear Normal Comprehens tyron Internal Medicine Work Phone: Comment on above: Test(s) 555989-DYN-B ; 178801-JCL-E; 001883-ALT-I; 406154-Gmqcpixcjunmh; 837085-Knpwepruxfo, Total; 941816-REQ-U (Total);315083-Kdarz LDL-P; 472726-DSQ Size; 224594-JK-QS Scorewas developed and its performance characteristics determinedby PlumTV. It has not been cleared or approved by the Foodand Drug Administration.PATIENT WAS FASTINGPERFORMED BY: Moda Operandi[address] [id number] BY: Strobe [address] [id number] Bilirubin Ql (U) Negative Normal Comprehe nsive Internal Medicine Work Phone: Comment on above: Test(s) 091508-ZGS-B ; 755746-PGD-F; 372336-WHA-Y; 007276-Pnfasmgjlsrmx; 978967-Iekcrwqaavp, Total; 508691-SLN-F (Total);154129-Mvarq LDL-P; 993365-BOB Size; 286893-OL-BD Scorewas developed and its performance characteristics determinedby PlumTV. It has not been cleared or approved by the Foodand Drug Administration.PATIENT WAS FASTINGPERFORMED BY: Moda Operandi[address] [id number] BY: [employer] [id number] Bilirubin Ql (U) Negative Normal Comprehe nsive Internal Medicine; [facility] Work Phone: Comment on above: Test(s) 396724-IEM-T ; 818686-IOY-F; 838066-RAP-S; 477884-Uwnckuyfnhkvw; 338524-Iqlrhqpnmio, Total; 371009-TBK-M (Total);578444-Dbvre LDL-P; 044971-HCF Size; 647747-VE-IT Scorewas developed and its performance characteristics determinedby PlumTV. It has not been cleared or approved by the Foodand Drug Administration.PATIENT WAS FASTINGPERFORMED BY: [employer] [address] [id number] BY: SEM[employer] GmbH RoadDublin [place] [id number] Color (U) Yellow Normal [facility] Work Phone: Comment on above: Test(s) 772679-DVT-F ; 877840-YRD-F; 765795-VLX-O; 664801-Lqjcsgdfsfcrw; 969753-Tumxjhwnmfq, Total; 784536-GIA-C (Total);398739-Xjlcq LDL-P; 061629-VNG Size; 789643-KZ-IM Scorewas developed and its performance characteristics determinedby PlumTV. It has not been cleared or approved by the Foodand Drug Administration.PATIENT WAS FASTINGPERFORMED BY: [employer] [address] [id number] BY: Mad[place] Knnhgo5599 [address] [id number] Glucose Ql (U) Negative Normal Comprehens tyron Internal Medicine Work Phone: Comment on above: Test(s) 446304-QPK-M ; 297043-PJA-I; 617887-BYV-O; 923734-Lylzkiyualvyz; 325514-Qzhcjggukui, Total; 205021-DFG-M (Total);105062-Rodoj LDL-P; 103075-SMJ Size; 098771-GN-XK Scorewas developed and its performance characteristics determinedby PlumTV. It has not been cleared or approved by the Foodand Drug Administration.PATIENT WAS FASTINGPERFORMED BY: [employer] [address] [id number] BY: Bubble MotionThe Rehabilitation Hospital of Tinton FallsLtdmjt1174 [address] [id number] Glucose Ql (U) Negative Normal Comprehens tyron Internal Medicine; [facility] Work Phone: Comment on above: Test(s) 629040-VZD-I ; 726776-FGU-I; 163178-QVZ-R; 375936-Ofuktwnrspvlp; 608326-Dcmuinkkexx, Total; 215652-EVW-G (Total);809515-Vgckt LDL-P; 305005-EUM Size; 652452-OF-XC Scorewas developed and its performance characteristics determinedby [employer]. It has not been cleared or approved by the Foodand Drug Administration.PATIENT WAS FASTINGPERFORMED BY: Bubble Motion[address] [id number] BY: Bubble MotionThe Rehabilitation Hospital of Tinton FallsMemhkh3119 [address] [id number] Hemoglobin Ql (U) Negative Normal Compreh ensive Internal Medicine Work Phone: Comment on above: Test(s) 010269-TXO-P ; 117047-VQM-Y; 235966-ZJX-L; 081305-Zzubendcvzhjc; 049444-Nbissvovudk, Total; 799808-VPN-B (Total);907517-Wofim LDL-P; 190876-FEP Size; 416818-UM-DK Scorewas developed and its performance characteristics determinedby PlumTV. It has not been cleared or approved by the Foodand Drug Administration.PATIENT WAS FASTINGPERFORMED BY: PlumTV [address] [id number] BY: Bubble MotionThe Rehabilitation Hospital of Tinton FallsKzhndv1496 [address] [id number] Hemoglobin Ql (U) Negative Normal Compreh ensive Internal Medicine; [facility] Work Phone: Comment on above: Test(s) 047988-WKD-H ; 256878-MVA-T; 330426-RZQ-J; 980076-Xgyedvufennrv; 228310-Twzgvwtlnyy, Total; 736240-UHL-X (Total);035348-Hlnhh LDL-P; 384303-BVH Size; 665295-RI-HO Scorewas developed and its performance characteristics determinedby [employer]. It has not been cleared or approved by the Foodand Drug Administration.PATIENT WAS FASTINGPERFORMED BY: Bubble Motion[address] [id number] BY: Bubble MotionJoel Ville 5355770 [address] [id number] Ketones Ql (U) Negative Normal Comprehens tyron Internal Medicine Work Phone: Comment on above: Test(s) 545799-HBX-Z ; 239997-EVI-H; 791535-MKY-B; 091940-Jjmpmzehyovuj; 892820-Paooqwtjrdd, Total; 818839-AKL-X (Total);601810-Ilhih LDL-P; 840575-OQX Size; 491930-EB-PU Scorewas developed and its performance characteristics determinedby Plum[employer]. It has not been cleared or approved by the Foodand Drug Administration.PATIENT WAS FASTINGPERFORMED BY: Moda Operandi[address] [id number] BY: [employer] [id number] Ketones Ql (U) Negative Normal [facility] Internal [facility]; [facility] Work Phone: Comment on above: Test(s) 035688-XIH-W ; 948872-WNU-S; 780046-ICC-A; 008157-Rjbpdvrlawtvj; 422887-Vgabxnsvlyc, Total; 819195-MKU-D (Total);516810-Crcpm LDL-P; 912562-VXO Size; 716189-YV-WQ Scorewas developed and its performance characteristics determinedby [employer]um[employer]. It has not been cleared or approved by the Foodand Drug Administration.PATIENT WAS FASTINGPERFORMED BY: Moda Operandi[address] [id number] BY: Siteheart6[address] [id number] Leukocyte esterase Test strip Ql (U) Negative Normal [facility] Work Phone: Comment on above: Test(s) 097564-SYN-I ; 835896-LRW-R; 200190-NTD-B; 032834-Jwzfqbaszjpfa; 007151-Xkaewjqwxxc, Total; 655665-WNL-O (Total);591065-Xjsxw LDL-P; 268137-QHN Size; 819179-DH-PU Scorewas developed and its performance characteristics determinedby [employer]um[employer]. It has not been cleared or approved by the Foodand Drug Administration.PATIENT WAS FASTINGPERFORMED BY: Moda Operandi[address] [id number] BY: Siteheart6370 GameGeneticsAtrium Health [id number] Leukocyte esterase Test strip Ql (U) Negative Normal [facility]; [facility] Work Phone: Comment on above: Test(s) 767798-QJZ-R ; 237291-RQG-D; 325494-QZU-H; 647790-Wcqpgulwdqcmy; 721157-Efmajqaifrd, Total; 219729-MHA-I (Total);924295-Lnrrp LDL-P; 145276-NAV Size; 097698-FU-RB Scorewas developed and its performance characteristics determinedby [employer]um[employer]. It has not been cleared or approved by the Foodand Drug Administration.PATIENT WAS FASTINGPERFORMED BY: Moda Operandi[address] [id number] BY: Siteheart6[address] People Operating TechnologyAtrium Health [id number] Microscopic observation LM Nom (Urine sed) MICRON Normal [facility] Work Phone: Comment on above: Microscopic follows if indicated. Test(s) 513566-WKU-Z ; 210067-SHC-K; 881334-KUY-Y; 498905-Iuqqvoalohuiw; 728226-Tkaqmrtrutm, Total; 078330-AFP-N (Total);126736-Hhdnl LDL-P; 754066-LGG Size; 968576-BU-ZM Scorewas developed and its performance characteristics determinedby [employer]. It has not been cleared or approved by the Foodand Drug Administration.PATIENT WAS FASTINGPERFORMED BY: Moda Operandi[address] [id number] BY: Siteheart6[address] [id number] Microscopic observation LM Nom (Urine sed) See below: Normal [facility] Work Phone: Comment on above: Microscopic was giovanni cated and was performed. Test(s) 041819-QJG-Q ; 651376-BAP-D; 363091-UAZ-L; 445622-Vishwtvejmudu; 138056-Fcjxwuvydcv, Total; 007492-XQW-V (Total);872916-Sovxa LDL-P; 284854-YZL Size; 513484-KH-MT Scorewas developed and its performance characteristics determinedby [employer]. It has not been cleared or approved by the Foodand Drug Administration.PATIENT WAS FASTINGPERFORMED BY: Mavenlink[address] [id number] BY: Bubble Motion Vgahvj7040 [address] People Operating TechnologyAtrium Health [id number] Nitrite Ql (U) Negative Normal Comprehens tyron Internal Medicine Work Phone: Comment on above: Test(s) 039626-TLI-W ; 906693-YNK-W; 761385-OQG-E; 793438-Blhnrycomnwst; 641675-Elqmmydayfd, Total; 946479-RMA-X (Total);534551-Paslx LDL-P; 451786-FPQ Size; 561340-CQ-OJ Scorewas developed and its performance characteristics determinedby [employer]. It has not been cleared or approved by the Foodand Drug Administration.PATIENT WAS FASTINGPERFORMED BY: [employer]es [address] [id number] BY: [employer] [place] [employer]70 [address] PostAtrium Health Union [id number] Nitrite Ql (U) Negative Normal Comprehens tyron [facility]; [facility] Work Phone: Comment on above: Test(s) 157079-TXE-X ; 749892-DFQ-D; 850032-DEY-K; 758532-Elghvmktmfubh; 306231-Unxrwtpceyq, Total; 827428-JSO-Z (Total);947982-Qdtpo LDL-P; 153573-EJF Size; 290130-GX-NU Scorewas developed and its performance characteristics determinedby [employer]. It has not been cleared or approved by the Foodand Drug Administration.PATIENT WAS FASTINGPERFORMED BY: [employer] [address] [id number] BY: Emergent Healthlin6370 GameGeneticsAtrium Health [id number] pH (U) 5.5 [pH] Normal 5.0-7.5 [facility] Work Phone: Comment on above: Test(s) 104776-BRH-A ; 927831-PMA-W; 453415-NRV-C; 610642-Winpleeweitod; 052193-Fniwqcqmnms, Total; 774760-BFD-M (Total);513678-Hswwk LDL-P; 014448-WBC Size; 253201-OW-YQ Scorewas developed and its performance characteristics determinedby [employer]. It has not been cleared or approved by the Foodand Drug Administration.PATIENT WAS FASTINGPERFORMED BY: [employer] [address] [id number] BY: [employer] [id number] Protein Ql (U) Negative Normal Comprehens [facility] Internal Medicine Work Phone: Comment on above: Test(s) 707485-AIE-J ; 189990-NMK-V; 629867-MJF-B; 899172-Ordkkuuamzhgn; 486855-Rwdbscxugqs, Total; 924975-RCV-F (Total);630185-Teuri LDL-P; 647746-SVZ Size; 864371-ZJ-HX Scorewas developed and its performance characteristics determinedby [employer]. It has not been cleared or approved by the Foodand Drug Administration.PATIENT WAS FASTINGPERFORMED BY: [employer] [address] [id number] BY: Madvenue Pelobk39[address] [id number] Protein Ql (U) Negative Normal Comprehens tyron [facility] Medicine; [facility] Work Phone: Comment on above: Test(s) 029850-WAE-V ; 860284-OYO-F; 606348-INU-A; 582556-Asgzvqlemghme; 075252-Xdqdtpvugyn, Total; 396429-PHW-V (Total);495243-Pxtxf LDL-P; 824469-WTF Size; 688444-VC-QP Scorewas developed and its performance characteristics determinedby [employer]. It has not been cleared or approved by the Foodand Drug Administration.PATIENT WAS FASTINGPERFORMED BY: Moda Operandi[address] [id number] BY: Siteheart6370 [place] PostAtrium Health Union [id number] Specific gravity (U) [Rel density] 1.021 1 Normal 1.005-1.03 0 [facility] Internal Medicine Work Phone: Comment on above: Test(s) 701925-OIM-X ; 624709-FLE-L; 110770-PPI-A; 468001-Nbsxzmwdctlip; 865399-Kogqeqkhrms, Total; 986249-JYD-S (Total);938135-Nvtmz LDL-P; 588801-FWD Size; 753910-JY-SZ Scorewas developed and its performance characteristics determinedby [employer]um[employer]. It has not been cleared or approved by the FoodAnzhi.com Drug Administration.PATIENT WAS FASTINGPERFORMED BY: Moda Operandi[address] [id number] BY: [employer]70 [address] PostAtrium Health Union [id number] Urobilinogen (U) [Mass/Vol] 0.2 mg/dL Normal 0.2-1.0 [facility] Work Phone: Comment on above: Test(s) 118247-OSP-G ; 718820-SCY-W; 199981-XPZ-R; 154515-Jnuywauoldloi; 181805-Wyjccvlvbts, Total; 782134-SLB-H (Total);220734-Ysima LDL-P; 270388-CMU Size; 396587-RW-KB Scorewas developed and its performance characteristics determinedby [employer]um[employer]. It has not been cleared or approved by the Foodand Drug Administration.PATIENT WAS FASTINGPERFORMED BY: Moda Operandi[address] [id number] BY: Siteheart6370 [address] People Operating TechnologyAtrium Health [id number] Urobilinogen Test strip (U) [Mass/Vol] 0.2 mg/dL Normal 0.2-1.0 [facility] Internal Medicine Work Phone: Comment on above: Test(s) 005644-RWG-W ; 582395-SVN-B; 746234-HKI-V; 892400-Cdzswudsbttoj; 167238-Jboemmycvqf, Total; 340592-ELQ-R (Total);828768-Ehisd LDL-P; 755881-SUS Size; 423608-XQ-GT Scorewas developed and its performance characteristics determinedby [facility]. It has not been cleared or approved by the Foodand Drug Administration.PATIENT WAS FASTINGPERFORMED BY: BN [facility] Hgbnjxmglz0482 [facility] [id number] BY: CB [facility] Nqdflb9[address] [id number] Blood Glucose , Office ([phone])Ordered By: Angelica Meneses on 02-04-2019 Glucose Glucometer (BldC) [Moles/Vol] 164 1 Normal [facility] Work Phone: HgA1C , Office ([phone])Ordere d By: Angelica Meneses on 02-04-2019 HbA1c (Bld) [Mass fraction] 6.2 % Normal 4.6 - 7.1 [facility] Work Phone: Blood Glucose , Office ([phone])Ordered By: Kim Ordonez on 10-29-2018 Glucose Glucometer (BldC) [Moles/Vol] 132 1 Normal [facility] Work Phone: HgA1C , Office (16359)Ordere d By: Nita Coleman on 10-29-2018 HbA1c (Bld) [Mass fraction] 6.3 % Normal 4.6 - 7.1 [facility] Work Phone: CALCIFIDIOL (16659) VIT D 25 Ordered By: Manager Talent Management on 10-23-2018 25-Hydroxyvitamin D2+25-Hydroxyvitamin D3 [Mass/Vol] 41.7 ng/mL Normal 30.0-100.0 [facility] Work Phone: Comment on above: Vitamin D deficiency has been defined by the [place] of[place]icine and an Endocrine Society practice guideline as alevel of serum 25-OH vitamin D less than 20 ng/mL (1,2).The Endocrine Society went on to further define vitamin Dinsufficiency as a level between 21 and 29 ng/mL (2).1. IOM ([place] of Medicine). 2010. Dietary reference intakes for calcium and D. [place]: The National Academies Press.2. Magno MF, Do MILES, Jos PRATER, et al. Evaluation, treatment, and prevention of vitamin D deficiency: an Endocrine Society clinical practice guideline. JCEM. 2010; 96(7):1911-30. PATIENT WAS FASTINGP ERFORMED BY: Bubble Motion[address] [id number] BY: Bubble Motion Yxgvgj4251 Alonzo RoadDuin [place] [id number] CBC W/AUTO DIFF WBC (54459)O rdered By: Manager Talent Management on 10-23-2018 Basophils (Bld) [#/Vol] 0.0 {x10E3/uL} Normal 0.0-0.2 [facility] Work Phone: Comment on above: PATIENT WAS FASTINGP ERFORMED BY: Mavenlink[address] [id number] BY: Bubble Motion Fzzzca3934 [address]zo RoadAtrium Health Wake Forest Baptist Medical Centerin [place] [id number] Basophils (Bld) [#/Vol] 0.0 10*3/uL Normal 0.0-0.2 [facility]; [facility] Work Phone: Comment on above: PATIENT WAS FASTINGP ERFORMED BY: Bubble Motion Jcvykiwpso4[address] [id number] BY: Bubble Motion Lxlnye0942 Al[address]zo RoadDublin [place] [id number] Basophils/100 WBC (Bld) 0 % Normal [facility] Work Phone: Comment on above: PATIENT WAS FASTINGP ERFORMED BY: Bubble Motion Tywbrbrznn4[address] [id number] BY: Bubble Motion Ovrtyh6217 Al[address]zo RoadDublin [place] [id number] Eosinophils (Bld) [#/Vol] 0.1 {x10E3/uL} Normal 0.0-0.4 [facility] Work Phone: Comment on above: PATIENT WAS FASTINGP ERFORMED BY: Bubble Motion[address] [id number] BY: LabCo Wobosy9413 [address]zo RoadDuin [place] [id number] Eosinophils (Bld) [#/Vol] 0.1 10*3/uL Normal 0.0-0.4 [facility]; [facility] Work Phone: Comment on above: PATIENT WAS FASTINGP ERFORMED BY: Bubble Motion[address] [id number] BY: LabCoThe Rehabilitation Hospital of Tinton FallsPhgvse4883 [address] [facility] [id number] Eosinophils/100 WBC (Bld) 2 % Normal [facility] Work Phone: Comment on above: PATIENT WAS FASTINGP ERFORMED BY: Bubble Motion[address] [id number] BY: LabCo Ebfiul6429 [address] [facility] [id number] Erythrocyte distribution width (RBC) [Ratio] 14.2 % Normal 12.3-15.4 [facility] Work Phone: Comment on above: PATIENT WAS FASTINGP ERFORMED BY: Bubble Motion[address] [id number] BY: LabCo Twjmfx8677 [address] [facility] [id number] Hematocrit (Bld) [Volume fraction] 43.8 % Normal 37.5-51.0 [facility] Work Phone: Comment on above: PATIENT WAS FASTINGP ERFORMED BY: Kid$Shirt[address] [id number] BY: LabCo Kscjis5890 [address]zo RoadAtrium Health Wake Forest Baptist Medical Centerin [place] [id number] Hemoglobin (Bld) [Mass/Vol] 14.7 g/dL Normal 13.0-17.7 [facility] Work Phone: Comment on above: PATIENT WAS FASTINGP ERFORMED BY: Lab[address] [id number] BY: LabCo Qveukr5633 [address]zo RoadDublin [place] [id number] Immature granulocytes (Bld) [#/Vol] 0.0 {x10E3/uL} Normal 0.0-0.1 [facility] Work Phone: Comment on above: PATIENT WAS FASTINGP ERFORMED BY: Lab[address] [id number] BY: LabCo Jrnuig6664 [address]zo RoadDublin [place] [id number] Immature granulocytes (Bld) [#/Vol] 0.0 10*3/uL Normal 0.0-0.1 [facility]; [facility] Work Phone: Comment on above: PATIENT WAS FASTINGP ERFORMED BY: [address] [id number] BY: Lab[facility] Wustbq2001 Al[address]zo RoadDublin [place] [id number] Immature granulocytes/100 WBC (Bld) 0 % Normal [facility] Work Phone: Comment on above: PATIENT WAS FASTINGP ERFORMED BY: [address] [id number] BY: Lab[facility] Ygkjpt1870 [address] RoadDublin [place] [id number] Lymphocytes (Bld) [#/Vol] 2.0 {x10E3/uL} Normal 0.7-3.1 [facility] Work Phone: Comment on above: PATIENT WAS FASTINGP ERFORMED BY: [address] [id number] BY: [facility] Clunkw2405 [address]zo RoadDublin [place] [id number] Lymphocytes (Bld) [#/Vol] 2.0 10*3/uL Normal 0.7-3.1 [facility]; [facility] Work Phone: Comment on above: PATIENT WAS FASTINGP ERFORMED BY: [address] [id number] BY: [facility] [id number] Lymphocytes/100 WBC (Bld) 33 % Normal [facility] Work Phone: Comment on above: PATIENT WAS FASTINGP ERFORMED BY: [address] [id number] BY: LabAndrew Ville 7172370 [address] [id number] MCH (RBC) [Entitic mass] 28.1 pg Normal 26.6-33.0 [facility] Work Phone: Comment on above: PATIENT WAS FASTINGP ERFORMED BY: [address] [id number] BY: [place] [id number] [id number] MCHC (RBC) [Mass/Vol] 33.6 g/dL Normal 31.5-35.7 [facility] Work Phone: Comment on above: PATIENT WAS FASTINGP ERFORMED BY: [address] [id number] BY: [facility]6[address] [id number] MCV (RBC) [Entitic vol] 84 fL Normal 79-97 [facility] Work Phone: Comment on above: PATIENT WAS FASTINGP ERFORMED BY: [address] [id number] BY: LabAndrew [place] [id number] [address] [id number] Monocytes (Bld) [#/Vol] 0.4 {x10E3/uL} Normal 0.1-0.9 [facility] Work Phone: Comment on above: PATIENT WAS FASTINGP ERFORMED BY: BN LabCo[address] [id number] BY: [facility] Uoowin3137 [address] RoadDublin [place] [id number] Monocytes (Bld) [#/Vol] 0.4 10*3/uL Normal 0.1-0.9 [facility]; [facility] Work Phone: Comment on above: PATIENT WAS FASTINGP ERFORMED BY: [facility] [address] [id number] BY: CB [facility] Czxnod1938 [address] RoadDublin [place] [id number] Monocytes/100 WBC (Bld) 7 % Normal [facility] Work Phone: Comment on above: PATIENT WAS FASTINGP ERFORMED BY: Lab[address] [id number] BY: MENDEZ [facility] Foyxrf3659 [address] RoadDublin [place] [id number] Neutrophils (Bld) [#/Vol] 3.6 {x10E3/uL} Normal 1.4-7.0 [facility] Work Phone: Comment on above: PATIENT WAS FASTINGP ERFORMED BY: Lab[address] [id number] BY: [facility] Fwhwcl0647 [address] RoadDublin [place] [id number] Neutrophils (Bld) [#/Vol] 3.6 10*3/uL Normal 1.4-7.0 [facility]; [facility] Work Phone: Comment on above: PATIENT WAS FASTINGP ERFORMED BY: Lab[address] [id number] BY: [facility] Bmfmax6719 [address] RoadDublin [place] [id number] Neutrophils/100 WBC (Bld) 58 % Normal [facility] Work Phone: Comment on above: PATIENT WAS FASTINGP ERFORMED BY: Lab[address] [id number] BY: MENDEZ [facility] Ftkskr2664 [address] RoadDublin [place] [id number] Platelets (Bld) [#/Vol] 246 {x10E3/uL} Normal 150-450 [facility] Work Phone: Comment on above: PATIENT WAS FASTINGP ERFORMED BY: [address] [id number] BY: [facility] Ficgsk9721 [address] RoadDublin [place] [id number] Platelets (Bld) [#/Vol] 246 10*3/uL Normal 150-450 [facility]; [facility] Work Phone: Comment on above: PATIENT WAS FASTINGP ERFORMED BY: Lab[address] [id number] BY: MENDEZ [facility] Leaadr0765 Al[address]zo RoadDuAtrium Health Union [id number] RBC (Bld) [#/Vol] 5.23 {x10E6/uL} Normal 4.14-5.80 [facility] Internal Medicine Work Phone: Comment on above: PATIENT WAS FASTINGP ERFORMED BY: [address] [id number] BY: MENDEZ Lab[facility] Idkbrc4055 Alonzo RoadAtrium Health [id number] RBC (Bld) [#/Vol] 5.23 10*6/uL Normal 4.14-5.80 [facility] Internal Medicine; [facility] Work Phone: Comment on above: PATIENT WAS FASTINGP ERFORMED BY: Lab[address] [id number] BY: LabP[facility] Rlmotl2355 [address] [facility]in [place] [id number] WBC (Bld) [#/Vol] 6.2 {x10E3/uL} Normal 3.4-10.8 [facility] Internal Medicine Work Phone: Comment on above: PATIENT WAS FASTINGP ERFORMED BY: LabCo[address] [id number] BY: [facility] Hapyma3516 [address] RoadDublin [place] [id number] WBC (Bld) [#/Vol] 6.2 10*3/uL Normal 3.4-10.8 [facility] Internal Medicine; [facility] Work Phone: Comment on above: PATIENT WAS FASTINGP ERFORMED BY: Lab[address] [id number] BY: [facility] Fadnug8[address] [facility] [id number] METABOLIC PANEL, COMPREHENSI VE (58535)Ordered By: Manager Talent Management on 10-23-2018 Albumin [Mass/Vol] 4.2 g/dL Normal 3.5-5.5 [facility] Internal Medicine Work Phone: Comment on above: PATIENT WAS FASTINGP ERFORMED BY: Lab[address] [id number] BY: [facility] Tlhudb7887 [address] [facility] [id number] Albumin/Globulin [Mass ratio] 1.4 {ratio} Normal 1.2-2.2 [facility] Work Phone: Comment on above: PATIENT WAS FASTINGP ERFORMED BY: Bubble Motion[address] [id number] BY: [facility] Zxilxd9128 [address] [facility]in [place] [id number] ALP [Catalytic activity/Vol] 45 [iU]/L Normal 39-117 [facility] Work Phone: Comment on above: PATIENT WAS FASTINGP ERFORMED BY: Lab[address] [id number] BY: [facility] Mkclxo4602 [address] RoadDublin [place] [id number] ALP [Catalytic activity/Vol] 45 U/L Normal 39-117 [facility]; [facility] Work Phone: Comment on above: PATIENT WAS FASTINGP ERFORMED BY: [facility] [address] [id number] BY: MENDEZ [facility] Tylhcd1969 [address] RoadDublin [place] [id number] ALT [Catalytic activity/Vol] 27 [iU]/L Normal 0-44 [facility] Work Phone: Comment on above: PATIENT WAS FASTINGP ERFORMED BY: [facility] [address] [id number] BY: MENDEZ [facility] Xlwgat1404 [address] RoadDublin [place] [id number] ALT [Catalytic activity/Vol] 27 U/L Normal 0-44 [facility]; [facility] Work Phone: Comment on above: PATIENT WAS FASTINGP ERFORMED BY: [facility] [address] [id number] BY: MENDEZ [facility] Aqfnzk1051 [address] RoadDublin [place] [id number] AST [Catalytic activity/Vol] 20 [iU]/L Normal 0-40 [facility] Work Phone: Comment on above: PATIENT WAS FASTINGP ERFORMED BY: LabCo[address] [id number] BY: MENDEZ [facility] Jbfnwb4513 [address] RoadDublin [place] [id number] AST [Catalytic activity/Vol] 20 U/L Normal 0-40 [facility]; [facility] Work Phone: Comment on above: PATIENT WAS FASTINGP ERFORMED BY: [facility] [address] [id number] BY: MENDEZ [facility] Jkihyq3304 [address] RoadDublin [place] [id number] Bilirubin [Mass/Vol] 0.4 mg/dL Normal 0.0-1.2 Comp [facility]ensive [facility] Work Phone: Comment on above: PATIENT WAS FASTINGP ERFORMED BY: LabCo[address] [id number] BY: MENDEZ [facility] Tfusrr1690 [address] RoadDublin [place] [id number] Calcium [Mass/Vol] 9.3 mg/dL Normal 8.7-10.2 [facility] Internal Medicine Work Phone: Comment on above: PATIENT WAS FASTINGP ERFORMED BY: BN [facility] Tynwdimyqj9424 [facility] [id number] BY: MENDEZ [facility] Jaisrv4571 [address] RoadDublin [place] [id number] Chloride [Moles/Vol] 104 mmol/L Normal 96-106 Comp [facility] hospitalensive [facility] Work Phone: Comment on above: PATIENT WAS FASTINGP ERFORMED BY: BN [facility] Fqifodjyoe04[address] [id number] BY: MENDEZ [facility] Hzisva7851 [address] RoadDublin [place] [id number] CO2 [Moles/Vol] 21 mmol/L Normal 20-29 [facility] Internal Medicine Work Phone: Comment on above: PATIENT WAS FASTINGP ERFORMED BY: BN [facility] [address] [id number] BY: MENDEZ [facility] Rnqgyt7733 [address] RoadDuin [place] [id number] Creatinine [Mass/Vol] 0.82 mg/dL Normal 0.76-1.27 [facility] Work Phone: Comment on above: PATIENT WAS FASTINGP ERFORMED BY: BN [facility] [address] [id number] BY: MENDEZ [facility] Syfysu8453 [address] RoadDublin [place] [id number] GFR/1.73 sq M predicted among blacks CKD-EPI (S/P/Bld) [Vol rate/Area] 119 mL/min/1.73 Normal [facility] Work Phone: Comment on above: PATIENT WAS FASTINGP ERFORMED BY: BN [facility] [address] [id number] BY: MENDEZ [facility] Erzzlh9585 [address] [facility] [id number] GFR/1.73 sq M predicted among non-blacks CKD-EPI (S/P/Bld) [Vol rate/Area] 103 mL/min/1.73 Normal [facility] Work Phone: Comment on above: PATIENT WAS FASTINGP ERFORMED BY: Lab[address] [id number] BY: [facility] Lkqcaw1952 [address] [facility] [id number] Globulin (S) [Mass/Vol] 2.9 g/dL Normal 1.5-4.5 [facility] Work Phone: Comment on above: PATIENT WAS FASTINGP ERFORMED BY: Lab[address] [id number] BY: MENDEZ [facility] Adrydw3031 [address] [facility] [id number] Glucose [Mass/Vol] 119 mg/dL Abnormal 65-99 [facility] Internal Medicine Work Phone: Comment on above: PATIENT WAS FASTINGP ERFORMED BY: Lab[address] [id number] BY: MENDEZ LabCoMountain View Regional Medical CenterPqpuwp[address] [id number] Potassium [Moles/Vol] 4.2 mmol/L Normal 3.5-5.2 [facility] Work Phone: Comment on above: PATIENT WAS FASTINGP ERFORMED BY: Lab[address] [id number] BY: [facility] Cyrypg0562 [address] [facility] [id number] Protein [Mass/Vol] 7.1 g/dL Normal 6.0-8.5 [facility] Internal Medicine Work Phone: Comment on above: PATIENT WAS FASTINGP ERFORMED BY: Lab[address] [id number] BY: [facility] Sryyki[address] [id number] Sodium [Moles/Vol] 140 mmol/L Normal 134-144 [facility] Internal Medicine Work Phone: Comment on above: PATIENT WAS FASTINGP ERFORMED BY: LabCo[address] [id number] BY: [facility] Rejaly0024 [address] [facility] [id number] Urea nitrogen [Mass/Vol] 15 mg/dL Normal 6-24 [facility] Work Phone: Comment on above: PATIENT WAS FASTINGP ERFORMED BY: LabVena Solutions[address] [id number] BY: [facility] Rezauv7[address] [id number] Urea nitrogen/Creatinine [Mass ratio] 18 mg/mg Normal 9-20 [facility] Work Phone: Comment on above: PATIENT WAS FASTINGP ERFORMED BY: Bubble Motion[address] [id number] BY: [facility] Wwkavc[address] [id number] MICROALBUMINOrdered By: Syst em Hydraulic Hammer Operator on 10-23-2018 Albumin DL <= 20 mg/L (U) [Mass/Vol] 7.0 ug/mL Normal Comprehensiv e Internal Medicine Work Phone: Comment on above: PATIENT WAS FASTINGP ERFORMED BY: Bubble Motion[address] [id number] BY: LabP[facility] Nrciao55[address] [id number] Albumin/Creatinine (U) [Mass ratio] 2.8 {mg/g_creat} Normal 0.0-30.0 [facility] Work Phone: Comment on above: Normal: 0.0 - 30.0 A lbuminuria: 31.0 - 300.0 Clinical albuminuria: >300.0 PATIENT WAS FASTINGP ERFORMED BY: Bubble Motion[address] [id number] BY: Bubble MotionThe Rehabilitation Hospital of Tinton FallsDdiehc22[address] [id number] Creatinine (U) [Mass/Vol] 248.4 mg/dL Normal [facility] Work Phone: Comment on above: PATIENT WAS FASTINGP ERFORMED BY: Bubble Motion[address] [id number] BY: Kid$ShirtAndrew Ville [id number] [address] [id number] NMR Profile ([id number])Ordered B y: Manager Talent Management on 10-23-2018 Cholesterol [Mass/Vol] 196 mg/dL Normal 100-199 [facility] Work Phone: Comment on above: PATIENT WAS FASTINGP ERFORMED BY: Bubble Motion[address] [id number] BY: Bubble MotionThe Rehabilitation Hospital of Tinton FallsXzqzfd6447 [address] [id number] Cholesterol in LDL [Mass/Vol] TRIGHI Normal 0-99 [facility] Work Phone: Comment on above: Triglyceride result indicated is too high for an accurate LDLcholesterol estimation. . Optimal < 100 Above optimal 100 - 129 Borderline 130 - 159 High 160 - 189 Very high > 189 .LDL-C is inaccurate if patient is non-fasting. PATIENT WAS FASTINGP ERFORMED BY: Bubble Motion[address] [id number] BY: Bubble MotionThe Rehabilitation Hospital of Tinton FallsRntgrf[address] [id number] Lipoprotein.alpha [Moles/Vol] 31.9 umol/L Normal [facility] Work Phone: Comment on above: PATIENT WAS FASTINGP ERFORMED BY: Bubble Motion[address] [id number] BY: Kid$ShirtHealthsource [place]6[address] [id number] Lipoprotein.beta.sub particle [Entitic length] 19.7 nm Abnormal [facility] Work Phone: Comment on above: INTERPRETATIVE INFORMATION PARTICLE CONCENTRATION AND SIZE <--Lower CVD Risk Higher CVD Risk--> LDL AND HDL PARTICLES Percentile in Reference Population HDL-P (total) High 75th 50th 25th Low >34.9 34.9 30.5 26.7 <26.7 . Small LDL-P Low 25th 50th 75th High <117 117 527 839 >839 . LDL Size <-Large (Pattern A)-> <-Small (Pattern B)-> 23.0 20.6 20.5 19.0 Small LDL-P and LDL Size are associated with CVD risk, but not afterLDL-P is taken into account. .These assays were developed and their performance characteristicsdetermined by [employer]. These assays have not been cleared by [place] Food and Drug Administration. The clinical utility of theselaboratory values have not been fully established. PATIENT WAS FASTINGP ERFORMED BY: [employer] [id number] BY: [employer] [id number] Lipoprotein.beta.sub particle [Moles/Vol] 1132 nmol/L Abnormal Comprehensi Internal Medicine Work Phone: Comment on above: Low < 1000 Moderate 1000 - 1299 Borderline-High 1300 - 1599 High 1600 - 2000 Very High > 2000 PATIENT WAS FASTINGP ERFORMED BY: [employer] [address] [id number] BY: [employer] [id number] Lipoprotein.beta.sub particle.small [Moles/Vol] 720 nmol/L Abnormal [facility] Work Phone: Comment on above: PATIENT WAS FASTINGP ERFORMED BY: [employer]irt[address] [id number] BY: [facility] [id number] Triglyceride [Mass/Vol] 419 mg/dL Abnormal 0-149 [facility] Work Phone: Comment on above: PATIENT WAS FASTINGP ERFORMED BY: [employer]irt[address] [id number] BY: [facility] Vajnzu9[address] [id number] NMR Profile (09038) 35 mg/dL Abnormal Compr ensive Internal Medicine Work Phone: Comment on above: PATIENT WAS FASTINGP ERFORMED BY: Bubble Motion[address] [id number] BY: [facility] [id number] NMR Profile (79249) TRIGHI Normal 0-99 Compr ensive Internal Medicine; [facility] Work Phone: Comment on above: Triglyceride result indicated is too high for an accurate LDLcholesterol estimation. . Optimal < 100 Above optimal 100 - 129 Borderline 130 - 159 High 160 - 189 Very high > 189 .LDL-C is inaccurate if patient is non-fasting. PATIENT WAS FASTINGP ERFORMED BY: [employer] [id number] BY: [facility] [id number] NMR Profile (79708) 419 mg/dL Abnormal 0-149 Compr ehensive Internal Medicine; [facility] Work Phone: NMR Profile (54605) 196 mg/dL Normal 100-199 Compr ehensive Internal Medicine; [facility] Work Phone: PSA (PROSTATE SPECIFIC ANTIG EN) (V76.44)Ordered By: Manager Talent Management on 10-23-2018 Prostate specific Ag [Mass/Vol] 0.4 ng/mL Normal 0.0-4.0 [facility] Work Phone: Comment on above: Bradly ECLIA methodol ogy. .According to the [place] [employer], Serum PSA shoulddecrease and remain at undetectable levels after radicalprostatectomy. The AUA defines biochemical recurrence as an initialPSA value 0.2 ng/mL or greater followed by a subsequent confirmatoryPSA value 0.2 ng/mL or greater.Values obtained with different assay methods or kits cannot be usedinterchangeably. Results cannot be interpreted as absolute evidenceof the presence or absence of malignant disease. assure one yr from l ast one; PATIENT WAS FASTINGPERFORMED BY: Outerstuff LabVena Solutionsrp Jqjxbvaonl69[address] [id number] BY: Baileyu [facility] Ttwrmz9627 Alonzo RoadDublin [place] [id number] TSH (05958)Ordered By: [employer] m Hydraulic Hammer Operator on 10-23-2018 TSH Qn 5.760 {uIU/mL} Abnormal 0.450-4.50 0 [facility] Work Phone: Comment on above: PATIENT WAS FASTINGP ERFORMED BY: Mavenlinkrp Ptjcitsbqd80[address] [id number] BY: Baileyu LabVena Solutionsrp Vfekvp8383 Alonzo RoadDublin [place] [id number] URINALYSIS, W/ MICRO (12011) Ordered By: Manager Talent Management on 10-23-2018 Appearance (U) Cloudy Abnormal Comprehens tyron Internal Medicine Work Phone: Comment on above: PATIENT WAS FASTINGP ERFORMED BY: Outer[employer] LabVena Solutionsrp Jbwkabymol049[address] [id number] BY: CB [facility] Rvsran2743 Al[address]zo RoadDublin [place] [id number] Bilirubin Ql (U) Negative Normal Comprehe nsive Internal Medicine Work Phone: Comment on above: PATIENT WAS FASTINGP ERFORMED BY: Outer[employer] LabVena Solutionsrp Fmimjlehyv47[address] [id number] BY: CB [facility] Kpyuaa9622 Al[address]zo RoadDublin [place] [id number] Bilirubin Ql (U) Negative Normal Comprehe nsive Internal Medicine; [facility] Work Phone: Comment on above: PATIENT WAS FASTINGP ERFORMED BY: [facility] [address] [id number] BY: MENDEZ [facility] Bqvxsg3493 Alonzo RoadDublin [place] [id number] Color (U) Yellow Normal [facility] Work Phone: Comment on above: PATIENT WAS FASTINGP ERFORMED BY: [facility] [address] [id number] BY: MENDEZ [facility] Rymyvt9030 Alonzo RoadDublin [place] [id number] Glucose Ql (U) Negative Normal Comprehens tyron [facility] Medicine Work Phone: Comment on above: PATIENT WAS FASTINGP ERFORMED BY: [facility] [address] [id number] BY: MENDEZ [facility] Cexttx4555 Alonzo RoadDublin [place] [id number] Glucose Ql (U) Negative Normal Comprehens tyron [facility] Medicine; [facility] Work Phone: Comment on above: PATIENT WAS FASTINGP ERFORMED BY: LabCo[address] [id number] BY: MENDEZ [facility] Houdnz4218 Alonzo RoadDublin [place] [id number] Hemoglobin Ql (U) Negative Normal Compreh ensive Internal Medicine Work Phone: Comment on above: PATIENT WAS FASTINGP ERFORMED BY: [facility] [address] [id number] BY: CB [facility] Domscf8524 Alonzo RoadDublin [place] [id number] Hemoglobin Ql (U) Negative Normal Compreh ensive Internal Medicine; [facility] Work Phone: Comment on above: PATIENT WAS FASTINGP ERFORMED BY: LabCo[address] [id number] BY: CB [facility] Qnllmk9545 Alonzo RoadDublin [place] [id number] Ketones Ql (U) Negative Normal Comprehens tyron [facility] Work Phone: Comment on above: PATIENT WAS FASTINGP ERFORMED BY: [facility] [address] [id number] BY: [facility] Hczikp1868 [address]zo RoadDublin [place] [id number] Ketones Ql (U) Negative Normal Comprehens tyron [facility]; [facility] Work Phone: Comment on above: PATIENT WAS FASTINGP ERFORMED BY: Lab[address] [id number] BY: [facility] Jpcfcv6509 Al[address]zo RoadDuin [place] [id number] Leukocyte esterase Test strip Ql (U) Negative Normal [facility] Work Phone: Comment on above: PATIENT WAS FASTINGP ERFORMED BY: LabCo[address] [id number] BY: [facility] Tctact6678 Alonzo RoadDuAtrium Health Union [id number] Leukocyte esterase Test strip Ql (U) Negative Normal [facility]; [facility] Work Phone: Comment on above: PATIENT WAS FASTINGP ERFORMED BY: Lab[address] [id number] BY: [facility] Ckrxuh0587 Al[address]zo RoadAtrium Health Wake [facility] Baptist Medical Centerin [place] [id number] Microscopic observation LM Nom (Urine sed) MICRON Normal [facility] Work Phone: Comment on above: Microscopic follows if indicated. PATIENT WAS FASTINGP ERFORMED BY: LabCo[address] [id number] BY: [facility] Hrylzn2077 Alonzo RoadDublin [place] [id number] Microscopic observation LM Nom (Urine sed) See below: Normal [facility] Work Phone: Comment on above: Microscopic was giovanni cated and was performed. PATIENT WAS FASTINGP ERFORMED BY: [address] [id number] BY: MENDEZ Caceres6370 [address] RoadDublin [place] [id number] Nitrite Ql (U) Negative Normal Comprehens tyron [facility] Work Phone: Comment on above: PATIENT WAS FASTINGP ERFORMED BY: [address] [id number] BY: MENDEZ [facility] Scpeje9528 [address] RoadDublin [place] [id number] Nitrite Ql (U) Negative Normal Comprehens tyron [facility]; [facility] Work Phone: Comment on above: PATIENT WAS FASTINGP ERFORMED BY: [address] [id number] BY: MENDEZ Caceres6370 [address] RoadDublin [place] [id number] pH (U) 5.0 [pH] Normal 5.0-7.5 [facility] Work Phone: Comment on above: PATIENT WAS FASTINGP ERFORMED BY: [address] [id number] BY: MENDEZ Dudleylin6370 [address] RoadDublin [place] [id number] Protein Ql (U) Trace Normal Comprehens tyron [facility] Work Phone: Comment on above: PATIENT WAS FASTINGP ERFORMED BY: [address] [id number] BY: MENDEZ [facility] Klmuyb0578 Al[address]zo RoadDublin [place] [id number] Specific gravity (U) [Rel density] 1.028 1 Normal 1.005-1.03 0 [facility] Work Phone: Comment on above: PATIENT WAS FASTINGP ERFORMED BY: [address] [id number] BY: MENDEZ LabBrittany Fislqy9607 [address]zo RoadDublin [place] [id number] Urobilinogen (U) [Mass/Vol] 0.2 mg/dL Normal 0.2-1.0 [facility]; [facility] Work Phone: Comment on above: PATIENT WAS FASTINGP ERFORMED BY: LabVena Solutions[address] [id number] BY: Lab[facility] Xneeys3784 [address] [facility] [id number] Urobilinogen Test strip (U) [Mass/Vol] 0.2 mg/dL Normal 0.2-1.0 Comprehensi ve Internal Medicine Work Phone: Comment on above: PATIENT WAS FASTINGP ERFORMED BY: Bubble [employer] Lmxosvprrd[address] [id number] BY: [facility] Elcxpz[address] [facility] [id number] Blood Glucose , Office (8296 2)Ordered By: Nita Coleman on 07-23-2018 Glucose Glucometer molar conc (BldC) 138 1 Normal [facility] Work Phone: HgA1C , Office ([phone])Ordere d By: Nita Coleman on 07-23-2018 Hemoglobin A1c/Hemoglobin.total mass fraction (Bld) 6.2 % Normal 4.6 - 7.1 Comprehensiv e Internal Medicine Work Phone: Blood Glucose , Office (8296 2)Ordered By: Geovanny Toussaint on 03-19-2018 Glucose Glucometer (BldC) [Moles/Vol] 143 1 Normal [facility] Work Phone: HgA1C , Office ([phone])Ordere d By: Geovanny Toussaint on 03-19-2018 Hemoglobin A1c/Hemoglobin.total mass fraction (Bld) 5.9 % Normal 4.6 - 7.1 Comprehensiv e Internal Medicine Work Phone: Blood Glucose , Office ([phone] 2)Ordered By: Nita Coleman on 11-13-2017 Glucose Glucometer molar conc (BldC) 132 1 Normal [facility] Work Phone: HgA1C , Office (45836)Ordere d By: Nita Coleman on 11-13-2017 Hemoglobin A1c/Hemoglobin.total mass fraction (Bld) 5.8 % Normal 4.6 - 7.1 Comprehensiv e Internal Medicine Work Phone: CALCIFIDIOL (98128) VIT D 25 on 10-30-2017 25-Hydroxyvitamin D2+25-Hydroxyvitamin D3 mass conc 55.1 ng/mL Normal 30.0-100.0 [facility] Work Phone: Comment on above: Vitamin D deficiency has been defined by the [place] of[place]icine and an Endocrine Society practice guideline as alevel of serum 25-OH vitamin D less than 20 ng/mL (1,2).The Endocrine Society went on to further define vitamin Dinsufficiency as a level between 21 and 29 ng/mL (2).1. IOM ([place] of Medicine). 2010. Dietary reference intakes for calcium and D. [place]: The National Academies Press.2. Magno MF, Do MILES, Jos PRATER, et al. Evaluation, treatment, and prevention of vitamin D deficiency: an Endocrine Society clinical practice guideline. JCEM. 2010; 96(7):1911-30. PATIENT WAS FASTINGP ERFORMED BY: PersonalingAtrium Health Union [id number] CBC W/AUTO DIFF WBC (47806)o n 10-30-2017 Basophils #/vol (Bld) 0.0 {x10E3/uL} Normal 0.0-0.2 [facility] Work Phone: Comment on above: PATIENT WAS FASTINGP ERFORMED BY: Timbuktu LabsAtrium Health [id number] Basophils Auto #/vol (Bld) 0.0 {x10E3/uL} Normal 0.0-0.2 [facility] Work Phone: Basophils/100 WBC (Bld) 0 % Normal [facility] Work Phone: Comment on above: PATIENT WAS FASTINGP ERFORMED BY: PersonalingAtrium Health Union [id number] Basophils/100 WBC Auto (Bld) 0 % Normal [facility] Work Phone: Eosinophils #/vol (Bld) 0.1 {x10E3/uL} Normal 0.0-0.4 [facility] Work Phone: Comment on above: PATIENT WAS FASTINGP ERFORMED BY: MENDEZ CaroleGabbie Euzvab22[address] [id number] Eosinophils Auto #/vol (Bld) 0.1 {x10E3/uL} Normal 0.0-0.4 [facility] Work Phone: Eosinophils/100 WBC (Bld) 2 % Normal [facility] Work Phone: Comment on above: PATIENT WAS FASTINGP ERFORMED BY: MENDEZ [facility] Hjaxbi[address] [id number] Eosinophils/100 WBC Auto (Bld) 2 % Normal [facility] Work Phone: Erythrocyte distribution width Auto Ratio (RBC) 14.5 % Normal 12.3-15.4 [facility] Work Phone: Erythrocyte distribution width Ratio (RBC) 14.5 % Normal 12.3-15.4 [facility] Work Phone: Comment on above: PATIENT WAS FASTINGP ERFORMED BY: MENDEZ [address] [id number] Hematocrit Auto Volume Fraction (Bld) 44.3 % Normal 37.5-51.0 [facility] Work Phone: Hematocrit Volume Fraction (Bld) 44.3 % Normal 37.5-51.0 [facility] Work Phone: Comment on above: PATIENT WAS FASTINGP ERFORMED BY: MENDEZ [place] 9858[address] [id number] Hemoglobin mass conc (Bld) 15.1 g/dL Normal 13.0-17.7 [facility] Work Phone: Comment on above: PATIENT WAS FASTINGP ERFORMED BY: MENDEZ [place] 9858370 [address] [id number] Immature granulocytes #/vol (Bld) 0.0 {x10E3/uL} Normal 0.0-0.1 [facility] Work Phone: Comment on above: PATIENT WAS FASTINGP ERFORMED BY: MENDEZ LabHealthsource [place] [id number] Immature granulocytes/100 WBC (Bld) 0 % Normal [facility] Work Phone: Comment on above: PATIENT WAS FASTINGP ERFORMED BY: MNEDEZ LabAndrew Ville [id number] [address] [id number] Lymphocytes #/vol (Bld) 1.8 {x10E3/uL} Normal 0.7-3.1 [facility] Work Phone: Comment on above: PATIENT WAS FASTINGP ERFORMED BY: MENDEZ [facility] Mkygth[address] [id number] Lymphocytes Auto #/vol (Bld) 1.8 {x10E3/uL} Normal 0.7-3.1 [facility] Work Phone: Lymphocytes/100 WBC (Bld) 31 % Normal [facility] Work Phone: Comment on above: PATIENT WAS FASTINGP ERFORMED BY: MENDEZ [place] 9858370 [address] [id number] Lymphocytes/100 WBC Auto (Bld) 31 % Normal [facility] Work Phone: MCH Auto Entitic mass (RBC) 28.0 pg Normal 26.6-33.0 [facility] Work Phone: MCH Entitic mass (RBC) 28.0 pg Normal 26.6-33.0 [facility] Work Phone: Comment on above: PATIENT WAS FASTINGP ERFORMED BY: [place] [id number] [address] [id number] MCHC Auto mass conc (RBC) 34.1 g/dL Normal 31.5-35.7 [facility] Work Phone: MCHC mass conc (RBC) 34.1 g/dL Normal 31.5-35.7 Comp rehensive Internal Medicine Work Phone: Comment on above: PATIENT WAS FASTINGP ERFORMED BY: [facility] [id number] MCV Auto Entitic volume (RBC) 82 fL Normal 79-97 [facility] Work Phone: MCV Entitic volume (RBC) 82 fL Normal 79-97 [facility] Work Phone: Comment on above: PATIENT WAS FASTINGP ERFORMED BY: [place] [id number] [address] [id number] Monocytes #/vol (Bld) 0.3 {x10E3/uL} Normal 0.1-0.9 [facility] Work Phone: Comment on above: PATIENT WAS FASTINGP ERFORMED BY: [facility] Mkkcgz9[address] [id number] Monocytes Auto #/vol (Bld) 0.3 {x10E3/uL} Normal 0.1-0.9 [facility] Work Phone: Monocytes/100 WBC (Bld) 5 % Normal [facility] Work Phone: Comment on above: PATIENT WAS FASTINGP ERFORMED BY: [facility] Iurshd80[address] [id number] Monocytes/100 WBC Auto (Bld) 5 % Normal [facility] Work Phone: Neutrophils #/vol (Bld) 3.6 {x10E3/uL} Normal 1.4-7.0 [facility] Work Phone: Comment on above: PATIENT WAS FASTINGP ERFORMED BY: [place] [id number] [id number] Neutrophils Auto #/vol (Bld) 3.6 {x10E3/uL} Normal 1.4-7.0 [facility] Work Phone: Neutrophils/100 WBC (Bld) 62 % Normal [facility] Work Phone: Comment on above: PATIENT WAS FASTINGP ERFORMED BY: [place] 9213970 [address] [id number] Neutrophils/100 WBC Auto (Bld) 62 % Normal [facility] Work Phone: Platelets #/vol (Bld) 243 {x10E3/uL} Normal 150-379 [facility] Work Phone: Comment on above: PATIENT WAS FASTINGP ERFORMED BY: [place] 92139[address] [id number] Platelets Auto #/vol (Bld) 243 {x10E3/uL} Normal 150-379 [facility] Work Phone: RBC #/vol (Bld) 5.40 {x10E6/uL} Normal 4.14-5.80 [facility] Internal Medicine Work Phone: Comment on above: PATIENT WAS FASTINGP ERFORMED BY: [address] [id number] RBC Auto #/vol (Bld) 5.40 {x10E6/uL} Normal 4.14-5.80 [facility] Work Phone: WBC #/vol (Bld) 5.8 {x10E3/uL} Normal 3.4-10.8 [facility] Internal Medicine Work Phone: Comment on above: PATIENT WAS FASTINGP ERFORMED BY: [place] [id number] [id number] WBC Auto #/vol (Bld) 5.8 {x10E3/uL} Normal 3.4-10.8 [facility] Work Phone: CBC W/AUTO DIFF WBC (54272)O rdered By: Manager Talent Management on 10-30-2017 Basophils (Bld) [#/Vol] 0.0 10*3/uL Normal 0.0-0.2 [facility]; [facility] Work Phone: Comment on above: PATIENT WAS FASTINGP ERFORMED BY: [place] [id number] [id number] Eosinophils (Bld) [#/Vol] 0.1 10*3/uL Normal 0.0-0.4 [facility]; [facility] Work Phone: Comment on above: PATIENT WAS FASTINGP ERFORMED BY: MENDEZ [facility] Oulfmy1655 [address] RoadDublin [place] [id number] Immature granulocytes (Bld) [#/Vol] 0.0 10*3/uL Normal 0.0-0.1 [facility]; [facility] Work Phone: Comment on above: PATIENT WAS FASTINGP ERFORMED BY: CB [facility] Jvvvcv4762 [address] RoadDublin [place] [id number] Lymphocytes (Bld) [#/Vol] 1.8 10*3/uL Normal 0.7-3.1 [facility]; [facility] Work Phone: Comment on above: PATIENT WAS FASTINGP ERFORMED BY: CB [facility] Fzbmgp3405 [address] RoadDublin [place] [id number] Monocytes (Bld) [#/Vol] 0.3 10*3/uL Normal 0.1-0.9 [facility]; [facility] Work Phone: Comment on above: PATIENT WAS FASTINGP ERFORMED BY: CB [facility] Mftpqt4795 [address] RoadDublin [place] [id number] Neutrophils (Bld) [#/Vol] 3.6 10*3/uL Normal 1.4-7.0 [facility]; [facility] Work Phone: Comment on above: PATIENT WAS FASTINGP ERFORMED BY: CB [facility] Wldrgf8379 [address]zo RoadDublin [place] [id number] Platelets (Bld) [#/Vol] 243 10*3/uL Normal 150-379 [facility]; [facility] Work Phone: Comment on above: PATIENT WAS FASTINGP ERFORMED BY: CB [facility] Vjccna1478 [address] RoadDublin [place] [id number] RBC (Bld) [#/Vol] 5.40 10*6/uL Normal 4.14-5.80 [facility] Internal Medicine; [facility] Work Phone: Comment on above: PATIENT WAS FASTINGP ERFORMED BY: CB [facility] Yovxoh[address] [facility]in [place] [id number] WBC (Bld) [#/Vol] 5.8 10*3/uL Normal 3.4-10.8 [facility] Internal Medicine; [facility] Work Phone: Comment on above: PATIENT WAS FASTINGP ERFORMED BY: MENDEZ CaroleGabbie DudleyMhernp[address] [facility] Hospitalblin [place] [id number] LIPID PANEL (04943)on 2017 Cholesterol in HDL mass conc 39 mg/dL Abnormal [facility] Work Phone: Comment on above: PATIENT WAS FASTINGP ERFORMED BY: MENDEZ LabGabbie DudleyJiqlvg[address] [facility]in [place] [id number] Cholesterol in LDL mass conc 83 mg/dL Normal 0-99 [facility] Work Phone: Comment on above: PATIENT WAS FASTINGP ERFORMED BY: MENDEZ Dudleylin[address] [facility] [id number] Cholesterol in LDL/Cholesterol in HDL mass ratio 2.1 {ratio} Normal 0.0-3.6 [facility] Work Phone: Comment on above: LDL/HDL Ratio Men Wo men 1/2 Avg.Risk 1.0 1.5 Avg.Risk 3.6 3.2 2X Avg.Risk 6.2 5.0 3X Avg.Risk 8.0 6.1 PATIENT WAS FASTINGP ERFORMED BY: MENDEZ Dudleylin[address] [facility] [id number] Cholesterol in VLDL mass conc 48 mg/dL Abnormal 5-40 [facility] Work Phone: Comment on above: PATIENT WAS FASTINGP ERFORMED BY: MENDEZ LabComelyssa DudleyZfxjdy[address] [facility] Hospitalblin [place] [id number] Cholesterol mass conc 170 mg/dL Normal 100-199 [facility] Work Phone: Comment on above: PATIENT WAS FASTINGP ERFORMED BY: MENDEZ LabGabbie Kgziav7039 [address] RoadDublin [place] [id number] Triglyceride mass conc 241 mg/dL Abnormal 0-149 [facility] Work Phone: Comment on above: PATIENT WAS FASTINGP ERFORMED BY: MENDEZ [facility] Byrtus9241 [address] Roadblin [place] [id number] METABOLIC PANEL, COMPREHENSI VE (02228)on 10-30-2017 Albumin mass conc 4.4 g/dL Normal 3.5-5.5 Compreh ensive Internal Medicine Work Phone: Comment on above: PATIENT WAS FASTINGP ERFORMED BY: [facility] Ftevms[address] [facility]in [place] [id number] Albumin/Globulin mass ratio 1.5 {ratio} Normal 1.2-2.2 [facility] Work Phone: Comment on above: PATIENT WAS FASTINGP ERFORMED BY: [facility] Eifuzd3899 [address]zo RoadAtrium Health [facility] Centerin [place] [id number] ALP enzyme act/vol 51 [iU]/L Normal 39-117 Compre [facility] Internal Medicine Work Phone: Comment on above: PATIENT WAS FASTINGP ERFORMED BY: [facility] Bntiyx5299 [facility] [place] [id number] ALT enzyme act/vol 14 [iU]/L Normal 0-44 Compre [facility] Internal Medicine Work Phone: Comment on above: PATIENT WAS FASTINGP ERFORMED BY: [facility] Mxkvho2471 [facility] [place] [id number] AST enzyme act/vol 14 [iU]/L Normal 0-40 Compre [facility] Internal Medicine Work Phone: Comment on above: PATIENT WAS FASTINGP ERFORMED BY: [facility] Eokksx3112 [facility] [place] [id number] Bilirubin mass conc 0.6 mg/dL Normal 0.0-1.[address] [facility] Internal Medicine Work Phone: Comment on above: PATIENT WAS FASTINGP ERFORMED BY: [facility] Vgrdug1799 [facility] [place] [id number] Calcium mass conc 9.7 mg/dL Normal 8.7-10.2 Compreh ensive Internal Medicine Work Phone: Comment on above: PATIENT WAS FASTINGP ERFORMED BY: MENDEZ [facility] Rfdrtx8839 [address] RoadDublin [place] [id number] Chloride molar conc 101 mmol/L Normal 96-106 [facility]ensive Internal Medicine Work Phone: Comment on above: PATIENT WAS FASTINGP ERFORMED BY: MENDEZ [facility] Zldxlk5887 [address] RoadDublin [place] [id number] CO2 molar conc 24 mmol/L Normal 20-29 Comprehens tyron Internal Medicine Work Phone: Comment on above: PATIENT WAS FASTINGP ERFORMED BY: MENDEZ [facility] Ffbvhc0307 [address] RoadDublin [place] [id number] Creatinine mass conc 1.01 mg/dL Normal 0.76-1.27 [facility] Internal Medicine Work Phone: Comment on above: PATIENT WAS FASTINGP ERFORMED BY: MENDEZ [facility] Mlqdxq4658 [address] Roadblin [place] [id number] GFR/1.73 sq M predicted among blacks CKD-EPI vol rate/area (S/P/Bld) 100 mL/min/1.73 [facility] Work Phone: Comment on above: PATIENT WAS FASTINGP ERFORMED BY: MENDEZ [facility] Guftka5578 [address] RoadDublin [place] [id number] GFR/1.73 sq M predicted among non-blacks CKD-EPI vol rate/area (S/P/Bld) 87 mL/min/1.73 Normal [facility] Work Phone: Comment on above: PATIENT WAS FASTINGP ERFORMED BY: [facility] Qcxpej0646 [address] RoadDublin [place] [id number] Globulin Calculated mass conc (S) 2.9 g/dL Normal 1.5-4.5 [facility] Work Phone: Globulin mass conc (S) 2.9 g/dL Normal 1.5-4.5 [facility] Work Phone: Comment on above: PATIENT WAS FASTINGP ERFORMED BY: MENDEZ [facility] Gsnssy7664 [address] RoadDublin [place] [id number] Glucose mass conc 113 mg/dL Abnormal 65-99 Compreh ensive Internal Medicine Work Phone: Comment on above: PATIENT WAS FASTINGP ERFORMED BY: MENDEZ Heidy Cacerse[address] [id number] Potassium molar conc 4.6 mmol/L Normal 3.5-5.2 Comp rehensive Internal Medicine Work Phone: Comment on above: PATIENT WAS FASTINGP ERFORMED BY: MENDEZ Heidy Samano[address] [id number] Protein mass conc 7.3 g/dL Normal 6.0-8.5 Compreh ensive Internal Medicine Work Phone: Comment on above: PATIENT WAS FASTINGP ERFORMED BY: MENDEZ Zaynabmelyssa Jfqcvy45[address] [id number] Sodium molar conc 140 mmol/L Normal 134-144 Compreh ensive Internal Medicine Work Phone: Comment on above: PATIENT WAS FASTINGP ERFORMED BY: MENDEZ CaroleGabbie DudleyVtfdsv29[address] [id number] Urea nitrogen mass conc 13 mg/dL Normal 6-24 [facility] Work Phone: Comment on above: PATIENT WAS FASTINGP ERFORMED BY: MENDEZ Zaynabmelyssa Ycjxzf67[address] [id number] Urea nitrogen/Creatinine mass ratio 13 mg/mg Normal 9-20 [facility] Work Phone: Comment on above: PATIENT WAS FASTINGP ERFORMED BY: MENDEZ Dudleylin6[address] [id number] METABOLIC PANEL, COMPREHENSI VE ([id number])Ordered By: Manager [employer] on 10-30-2017 ALP [Catalytic activity/Vol] 51 U/L Normal 39-117 [facility]; [facility] Work Phone: Comment on above: PATIENT WAS FASTINGP ERFORMED BY: MENDEZ CaroleGabbie DudleyErcbhe8[address] [id number] ALT [Catalytic activity/Vol] 14 U/L Normal 0-44 [facility]; [facility] Work Phone: Comment on above: PATIENT WAS FASTINGP ERFORMED BY: [facility] [id number] AST [Catalytic activity/Vol] 14 U/L Normal 0-40 [facility]; [facility] Work Phone: Comment on above: PATIENT WAS FASTINGP ERFORMED BY: [facility] [id number] MICROALBUMINon 10-30-2017 Albumin DL <= 20 mg/L mass conc (U) 5.3 ug/mL Normal [facility] Work Phone: Comment on above: PATIENT WAS FASTINGP ERFORMED BY: [place] [id number] [id number] Albumin/Creatinine mass ratio (U) 3.1 {mg/g_creat} Normal 0.0-30.0 [facility] Work Phone: Comment on above: PATIENT WAS FASTINGP ERFORMED BY: [facility] [id number] Creatinine mass conc (U) 171.5 mg/dL Normal [facility] Work Phone: Comment on above: PATIENT WAS FASTINGP ERFORMED BY: [facility] [id number] Microscopic Examinationon Bacteria LM.HPF #/area (Urine sed) None seen Normal [facility] Work Phone: Comment on above: PATIENT WAS FASTINGP ERFORMED BY: [facility] [id number] Epithelial cells LM.HPF #/area (Urine sed) None seen Normal 0 - 10 [facility] Work Phone: Comment on above: PATIENT WAS FASTINGP ERFORMED BY: [facility] [place] [id number] Mucus LM Ql (Urine sed) Present Normal [facility] Work Phone: Mucus Ql (Urine sed) Present Normal Comp rehensive Internal Medicine Work Phone: Comment on above: PATIENT WAS FASTINGP ERFORMED BY: MENDEZ [facility] Wifsjn1137 [address] RoadDublin [place] [id number] RBC LM.HPF #/area (Urine sed) 0-2 Normal 0 - 2 [facility] Work Phone: Comment on above: PATIENT WAS FASTINGP ERFORMED BY: MENDEZ [facility] Ahfdov3254 [address] RoadDublin [place] [id number] WBC LM.HPF #/area (Urine sed) 0-5 Normal 0 - 5 [facility] Work Phone: Comment on above: PATIENT WAS FASTINGP ERFORMED BY: MENDEZ [facility] Nkflkg0808 [address] RoadDublin [place] [id number] TSH (31667)on 10-30-2017 Thyrotropin Qn 3.580 {uIU/mL} Normal 0.450-4.50 0 [facility] Work Phone: Comment on above: PATIENT WAS FASTINGP ERFORMED BY: MENDEZ [facility] Hkvhtf0007 [address] Roadblin [place] [id number] URINALYSIS, W/ MICRO ([id number]) on 10-30-2017 Appearance Nom (U) Clear Normal Compre hensive Internal Medicine Work Phone: Comment on above: PATIENT WAS FASTINGP ERFORMED BY: MENDEZ [facility] Wluoos4747 [address] RoadDublin [place] [id number] Bilirubin Ql (U) Negative Normal Comprehe nsive Internal Medicine Work Phone: Comment on above: PATIENT WAS FASTINGP ERFORMED BY: MENDEZ [facility] Sruovx8127 [address] RoadDublin [place] [id number] Color Nom (U) Yellow Normal Comprehensi ve Internal Medicine Work Phone: Comment on above: PATIENT WAS FASTINGP ERFORMED BY: MENDEZ [facility] Vlgoxa5055 [address] RoadDublin [place] [id number] Glucose Ql (U) Negative Normal Comprehens tyron Internal Medicine Work Phone: Comment on above: PATIENT WAS FASTINGP ERFORMED BY: MENDEZ [facility] Gdchog2725 [address] RoadDublin [place] [id number] Hemoglobin Ql (U) Negative Normal Compreh ensive Internal Medicine Work Phone: Comment on above: PATIENT WAS FASTINGP ERFORMED BY: MENDEZ [facility] Vrjqzg3710 [address] RoadDublin [place] [id number] Hemoglobin Test strip Ql (U) Negative Normal [facility] Work Phone: Ketones Ql (U) Negative Normal Comprehens tyron Internal Medicine Work Phone: Comment on above: PATIENT WAS FASTINGP ERFORMED BY: MENDEZ [facility] Aeezqb1422 [address] RoadDublin [place] [id number] Leukocyte esterase Test strip Ql (U) Negative Normal [facility] Work Phone: Comment on above: PATIENT WAS FASTINGP ERFORMED BY: MENDEZ [facility] Scwkjj0926 [address] RoadDublin [place] [id number] Microscopic observation LM Nom (Urine sed) See below: Normal [facility] Work Phone: Comment on above: Microscopic was giovanni cated and was performed. PATIENT WAS FASTINGP ERFORMED BY: MENDEZ [facility] Edixzh4990 [address] RoadDublin [place] [id number] Microscopic observation LM Nom (Urine sed) MICRON Normal [facility] Work Phone: Comment on above: Microscopic follows if indicated. PATIENT WAS FASTINGP ERFORMED BY: MENDEZ [facility] Qtjvoh0535 [address] RoadDublin [place] [id number] Nitrite Ql (U) Negative Normal Comprehens tyron Internal Medicine Work Phone: Comment on above: PATIENT WAS FASTINGP ERFORMED BY: MENDEZ [facility] Gfsevw7283 [address] RoadDublin [place] [id number] Nitrite Test strip Ql (U) Negative Normal [facility] Work Phone: pH (U) 6.5 [pH] Normal 5.0-7.5 [facility] Work Phone: Comment on above: PATIENT WAS FASTINGP ERFORMED BY: [facility] Uetirz2936 [address] RoadDublin [place] [id number] pH Test strip (U) 6.5 [pH] Normal 5.0-7.5 Compreh ensive Internal Medicine Work Phone: Protein Ql (U) Negative Normal Comprehens tyron Internal Medicine Work Phone: Comment on above: PATIENT WAS FASTINGP ERFORMED BY: MENDEZ [facility] Yxgwkp4647 [address] RoadDublin [place] [id number] Protein Test strip Ql (U) Negative Normal [facility] Work Phone: Specific gravity Relative Density (U) 1.024 1 Normal 1.005-1.03 0 [facility] Work Phone: Comment on above: PATIENT WAS FASTINGP ERFORMED BY: MENDEZ [facility] Wfqljk3969 [address] RoadDublin [place] [id number] Urobilinogen Test strip mass conc (U) 0.2 mg/dL Normal 0.2-1.0 Comprehensiv e Internal Medicine Work Phone: Comment on above: PATIENT WAS FASTINGP ERFORMED BY: MEN[facility]Z [facility] Wxqbav3088 [address] RoadDublin [place] [id number] URINALYSIS, W/ MICRO ([id number]) Ordered By: Manager [employer] on 10-30-2017 Bilirubin Ql (U) Negative Normal Comprehe nsive Internal Medicine; [facility] Work Phone: Comment on above: PATIENT WAS FASTINGP ERFORMED BY: MENDEZ [employer] Pvwkzt2888 [address] RoadDublin [place] [id number] Glucose Ql (U) Negative Normal Comprehens tyron Internal Medicine; [facility] Work Phone: Comment on above: PATIENT WAS FASTINGP ERFORMED BY: MENDEZ [facility] Frrhek9027 [address] RoadDublin [place] [id number] Hemoglobin Ql (U) Negative Normal Compreh ensive Internal Medicine; [facility] Work Phone: Comment on above: PATIENT WAS FASTINGP ERFORMED BY: MENDEZ [facility] Qykvbn1806 [address] RoadDublin [place] [id number] Ketones Ql (U) Negative Normal Comprehens tyron Internal Medicine; [facility] Work Phone: Comment on above: PATIENT WAS FASTINGP ERFORMED BY: MENDEZ [facility] Ysjwkf1646 [address] RoadDublin [place] [id number] Leukocyte esterase Test strip Ql (U) Negative Normal [facility]; [facility] Work Phone: Comment on above: PATIENT WAS FASTINGP ERFORMED BY: MENDEZ [facility] Almqzu1547 [address] RoadDublin [place] [id number] Nitrite Ql (U) Negative Normal Comprehens tyron Internal Medicine; [facility] Work Phone: Comment on above: PATIENT WAS FASTINGP ERFORMED BY: MENDEZ [facility] Mrcfmw9978 [address] RoadDublin [place] [id number] Protein Ql (U) Negative Normal Comprehens tyron Internal Medicine; [facility] Work Phone: Comment on above: PATIENT WAS FASTINGP ERFORMED BY: MENDEZ [facility] Lqytyr5841 [address] RoadDublin [place] [id number] Urobilinogen (U) [Mass/Vol] 0.2 mg/dL Normal 0.2-1.0 [facility]; [facility] Work Phone: Comment on above: PATIENT WAS FASTINGP ERFORMED BY: MENDEZ [facility] Oqggnn9475 [address] RoadDublin [place] [id number] Blood Glucose , Office ([phone])Ordered By: Nita Coleman on 08-07-2017 Glucose Glucometer molar conc (BldC) 118 1 Normal [facility] Work Phone: HgA1C , Office ([id number])Ordere d By: Cheri Clancy on 08-07-2017 Hemoglobin A1c/Hemoglobin.total mass fraction (Bld) 5.9 % Normal 4.6 - 7.1 Comprehensiv e Internal Medicine Work Phone: Blood Glucose , Office ([phone])on 05-01-2017 Glucose Glucometer molar conc (BldC) 155 1 Normal [facility] Work Phone: HgA1C , Office ([id number])Ordere d By: Nita Coleman on 05-01-2017 Hemoglobin A1c/Hemoglobin.total mass fraction (Bld) 6.0 % Normal 4.6 - 7.1 Comprehensiv e Internal Medicine Work Phone: CALCIFEDIOL ([id number])on 2017 25-Hydroxyvitamin D2+25-Hydroxyvitamin D3 mass conc 46.3 ng/mL Normal 30.0-100.0 [facility] Work Phone: Comment on above: Vitamin D deficiency has been defined by the [place] ofTri[facility] Hospitalcine and an Endocrine Society practice guideline as alevel of serum 25-OH vitamin D less than 20 ng/mL (1,2).The Endocrine Society went on to further define vitamin Dinsufficiency as a level between 21 and 29 ng/mL (2).1. IOM ([place] of Medicine). 2010. Dietary reference intakes for calcium and D. [place]: The National Academies Press.2. Magno MF, Do MILES, Jos PRATER, et al. Evaluation, treatment, and prevention of vitamin D deficiency: an Endocrine Society clinical practice guideline. JCEM. 2010; 96(7):1911-30. PATIENT WAS FASTINGP ERFORMED BY: [employer] [facility] [id number] CBC W/AUTO DIFF WBC (09572)o n 04-17-2017 Basophils #/vol (Bld) 0.0 {x10E3/uL} Normal 0.0-0.2 [facility] Work Phone: Comment on above: PATIENT WAS FASTINGP ERFORMED BY: [employer] [facility] [id number] Basophils Auto #/vol (Bld) 0.0 {x10E3/uL} Normal 0.0-0.2 [facility] Work Phone: Basophils/100 WBC (Bld) 0 % Normal [facility] Work Phone: Comment on above: PATIENT WAS FASTINGP ERFORMED BY: [facility] LabsMineral [facility] Regional [facility] [id number] Basophils/100 WBC Auto (Bld) 0 % Normal [facility] Work Phone: Eosinophils #/vol (Bld) 0.1 {x10E3/uL} Normal 0.0-0.4 [facility] Work Phone: Comment on above: PATIENT WAS FASTINGP ERFORMED BY: MENDEZ [facility] [place] [id number] Eosinophils Auto #/vol (Bld) 0.1 {x10E3/uL} Normal 0.0-0.4 [facility] Work Phone: Eosinophils/100 WBC (Bld) 2 % Normal [facility] Work Phone: Comment on above: PATIENT WAS FASTINGP ERFORMED BY: MENDEZ [facility] [place] [id number] Eosinophils/100 WBC Auto (Bld) 2 % Normal [facility] Work Phone: Erythrocyte distribution width Auto Ratio (RBC) 14.3 % Normal 12.3-15.4 [facility] Work Phone: Erythrocyte distribution width Ratio (RBC) 14.3 % Normal 12.3-15.4 [facility] Work Phone: Comment on above: PATIENT WAS FASTINGP ERFORMED BY: Kid$ShirtHealth[facility] [place] [id number] Hematocrit Auto Volume Fraction (Bld) 44.6 % Normal 37.5-51.0 [facility] Work Phone: Hematocrit Volume Fraction (Bld) 44.6 % Normal 37.5-51.0 [facility] Work Phone: Comment on above: PATIENT WAS FASTINGP ERFORMED BY: [facility] [place] [id number] Hemoglobin mass conc (Bld) 15.4 g/dL Normal 13.0-17.7 [facility] Work Phone: Comment on above: PATIENT WAS FASTINGP ERFORMED BY: [facility] [place] [id number] Immature granulocytes #/vol (Bld) 0.0 {x10E3/uL} Normal 0.0-0.1 [facility] Work Phone: Comment on above: PATIENT WAS FASTINGP ERFORMED BY: [facility] [id number] Immature granulocytes/100 WBC (Bld) 0 % Normal [facility] Work Phone: Comment on above: PATIENT WAS FASTINGP ERFORMED BY: [place] [id number] [id number] Lymphocytes #/vol (Bld) 2.4 {x10E3/uL} Normal 0.7-3.1 [facility] Work Phone: Comment on above: PATIENT WAS FASTINGP ERFORMED BY: [place] [id number] [id number] Lymphocytes Auto #/vol (Bld) 2.4 {x10E3/uL} Normal 0.7-3.1 [facility] Work Phone: Lymphocytes/100 WBC (Bld) 36 % Normal [facility] Work Phone: Comment on above: PATIENT WAS FASTINGP ERFORMED BY: [place] [id number] [id number] Lymphocytes/100 WBC Auto (Bld) 36 % Normal [facility] Work Phone: MCH Auto Entitic mass (RBC) 27.5 pg Normal 26.6-33.0 [facility] Work Phone: MCH Entitic mass (RBC) 27.5 pg Normal 26.6-33.0 [facility] Work Phone: Comment on above: PATIENT WAS FASTINGP ERFORMED BY: [place] [id number] [id number] MCHC Auto mass conc (RBC) 34.5 g/dL Normal 31.5-35.7 [facility] Work Phone: MCHC mass conc (RBC) 34.5 g/dL Normal 31.5-35.[address] [facility] Internal Medicine Work Phone: Comment on above: PATIENT WAS FASTINGP ERFORMED BY: [place] [id number] [id number] MCV Auto Entitic volume (RBC) 80 fL Normal 79-97 [facility] Work Phone: MCV Entitic volume (RBC) 80 fL Normal 79-97 [facility] Work Phone: Comment on above: PATIENT WAS FASTINGP ERFORMED BY: [place] [id number] [id number] Monocytes #/vol (Bld) 0.4 {x10E3/uL} Normal 0.1-0.9 [facility] Work Phone: Comment on above: PATIENT WAS FASTINGP ERFORMED BY: [address] [id number] Monocytes Auto #/vol (Bld) 0.4 {x10E3/uL} Normal 0.1-0.9 [facility] Work Phone: Monocytes/100 WBC (Bld) 7 % Normal [facility] Work Phone: Comment on above: PATIENT WAS FASTINGP ERFORMED BY: [address] [id number] Monocytes/100 WBC Auto (Bld) 7 % Normal [facility] Work Phone: Neutrophils #/vol (Bld) 3.6 {x10E3/uL} Normal 1.4-7.0 [facility] Work Phone: Comment on above: PATIENT WAS FASTINGP ERFORMED BY: [address] [id number] Neutrophils Auto #/vol (Bld) 3.6 {x10E3/uL} Normal 1.4-7.0 [facility] Work Phone: Neutrophils/100 WBC (Bld) 55 % Normal [facility] Work Phone: Comment on above: PATIENT WAS FASTINGP ERFORMED BY: [place] [id number] [id number] Neutrophils/100 WBC Auto (Bld) 55 % Normal [facility] Work Phone: Platelets #/vol (Bld) 233 {x10E3/uL} Normal 150-379 [facility] Work Phone: Comment on above: PATIENT WAS FASTINGP ERFORMED BY: MENDEZ [address] [id number] Platelets Auto #/vol (Bld) 233 {x10E3/uL} Normal 150-379 [facility] Work Phone: RBC #/vol (Bld) 5.59 {x10E6/uL} Normal 4.14-5.80 [facility] Internal Medicine Work Phone: Comment on above: PATIENT WAS FASTINGP ERFORMED BY: MENDEZ [address] [id number] RBC Auto #/vol (Bld) 5.59 {x10E6/uL} Normal 4.14-5.80 [facility] Work Phone: WBC #/vol (Bld) 6.6 {x10E3/uL} Normal 3.4-10.8 [facility] Internal Medicine Work Phone: Comment on above: PATIENT WAS FASTINGP ERFORMED BY: MENDEZ [address] [id number] WBC Auto #/vol (Bld) 6.6 {x10E3/uL} Normal 3.4-10.8 [facility] Work Phone: CBC W/AUTO DIFF WBC ([id number])O rdered By: Manager [employer] on 04-17-2017 Basophils (Bld) [#/Vol] 0.0 10*3/uL Normal 0.0-0.2 [facility]; [facility] Work Phone: Comment on above: PATIENT WAS FASTINGP ERFORMED BY: MENDEZ Dudleylin[address] [id number] Eosinophils (Bld) [#/Vol] 0.1 10*3/uL Normal 0.0-0.4 [facility]; [facility] Work Phone: Comment on above: PATIENT WAS FASTINGP ERFORMED BY: MENDEZ Dudleylin6370 [address]Dublin [place] [id number] Immature granulocytes (Bld) [#/Vol] 0.0 10*3/uL Normal 0.0-0.1 [facility] Internal Medicine; [facility] Work Phone: Comment on above: PATIENT WAS FASTINGP ERFORMED BY: CB [facility] Gjuopr4477 [address] RoadDublin [place] [id number] Lymphocytes (Bld) [#/Vol] 2.4 10*3/uL Normal 0.7-3.1 [facility] Internal Medicine; [facility] Work Phone: Comment on above: PATIENT WAS FASTINGP ERFORMED BY: MENDEZ [facility] Qrhcre8175 [address] RoadDublin [place] [id number] Monocytes (Bld) [#/Vol] 0.4 10*3/uL Normal 0.1-0.9 [facility] Internal Medicine; [facility] Work Phone: Comment on above: PATIENT WAS FASTINGP ERFORMED BY: [facility] Pyxmin4247 [address] RoadDublin [place] [id number] Neutrophils (Bld) [#/Vol] 3.6 10*3/uL Normal 1.4-7.0 [facility] Internal Medicine; [facility] Work Phone: Comment on above: PATIENT WAS FASTINGP ERFORMED BY: MENDEZ [facility] Ksnpki0204 [address] RoadDublin [place] [id number] Platelets (Bld) [#/Vol] 233 10*3/uL Normal 150-379 [facility]; [facility] Work Phone: Comment on above: PATIENT WAS FASTINGP ERFORMED BY: CB [facility] Xyrmmq9118 [address] RoadDublin [place] [id number] RBC (Bld) [#/Vol] 5.59 10*6/uL Normal 4.14-5.80 [facility] Internal Medicine; [facility] Internal Medicine Work Phone: Comment on above: PATIENT WAS FASTINGP ERFORMED BY: CB [facility] Swsmjf3501 [address] RoadDublin [place] [id number] WBC (Bld) [#/Vol] 6.6 10*3/uL Normal 3.4-10.8 Compre hensive Internal Medicine; [facility] Work Phone: Comment on above: PATIENT WAS FASTINGP ERFORMED BY: MENDEZ [facility] Bmmosr0561 [address] RoadDublin [place] [id number] LIPID PANEL (24942)on 2017 Cholesterol in HDL mass conc 34 mg/dL Abnormal [facility] Work Phone: Comment on above: PATIENT WAS FASTINGP ERFORMED BY: MENDEZ [facility] Muxhqh0506 [address] RoadDublin [place] [id number] Cholesterol in VLDL mass conc VLDLCH Normal 5-40 [facility] Work Phone: Comment on above: The calculation for the VLDL cholesterol is not valid whentriglyceride level is >400 mg/dL.Triglyceride result indicated is too high for an accurate LDLcholesterol estimation. PATIENT WAS FASTINGP ERFORMED BY: MENDEZ LabComelyssa Oipsxg[address] [facility] [place] [id number] Cholesterol mass conc 199 mg/dL Normal 100-199 [facility] Work Phone: Comment on above: PATIENT WAS FASTINGP ERFORMED BY: MENDEZ LabComelyssa Kcfnvk[address] [facility] [place] [id number] Triglyceride mass conc 421 mg/dL Abnormal 0-149 [facility] Work Phone: Comment on above: PATIENT WAS FASTINGP ERFORMED BY: MENDEZ LabComelyssa Obfifv27[address] [facility] [place] [id number] METABOLIC PANEL, COMPREHENSI VE ([id number])on 04-17-2017 Albumin mass conc 4.6 g/dL Normal 3.5-5.5 Compreh ensive Internal Medicine Work Phone: Comment on above: PATIENT WAS FASTINGP ERFORMED BY: MENDEZ [facility] Qdvqfp5054 [address] [facility] [place] [id number] Albumin/Globulin mass ratio 1.6 {ratio} Normal 1.2-2.2 [facility] Work Phone: Comment on above: PATIENT WAS FASTINGP ERFORMED BY: MENDEZ [facility] Qzwynb4569 [address] Roadblin [place] [id number] ALP enzyme act/vol 48 [iU]/L Normal 39-117 Compre [facility] Internal Medicine Work Phone: Comment on above: PATIENT WAS FASTINGP ERFORMED BY: MENDEZ [facility] Icftfn7297 [address] RoadDublin [place] [id number] ALT enzyme act/vol 26 [iU]/L Normal 0-44 [facility] Work Phone: Comment on above: PATIENT WAS FASTINGP ERFORMED BY: CB [facility] Jdfqcb3986 Alonzo RoadDublin [place] [id number] AST enzyme act/vol 22 [iU]/L Normal 0-40 [facility] Work Phone: Comment on above: PATIENT WAS FASTINGP ERFORMED BY: MENDEZ [facility] Xdvnlv8732 Al[address]zo RoadDublin [place] [id number] Bilirubin mass conc 0.7 mg/dL Normal 0.0-1.2 Compr ensive Internal Medicine Work Phone: Comment on above: PATIENT WAS FASTINGP ERFORMED BY: MENDEZ [facility] Xeknkz9341 Alonzo RoadDublin [place] [id number] Calcium mass conc 9.5 mg/dL Normal 8.7-10.[address] [facility] Work Phone: Comment on above: PATIENT WAS FASTINGP ERFORMED BY: [facility] Gqbear8179 Al[address]zo RoadDublin [place] [id number] Chloride molar conc 101 mmol/L Normal 96-106 Compr ensive Internal Medicine Work Phone: Comment on above: PATIENT WAS FASTINGP ERFORMED BY: [facility] Pccjdj1344 [address]zo RoadDublin [place] [id number] CO2 molar conc 22 mmol/L Normal 18-29 Comprehens tyron Internal Medicine Work Phone: Comment on above: PATIENT WAS FASTINGP ERFORMED BY: MENDEZ [facility] Exduac2690 [address] RoadDublin [place] [id number] Creatinine mass conc 1.00 mg/dL Normal 0.76-1.27 Comp [facility] Work Phone: Comment on above: PATIENT WAS FASTINGP ERFORMED BY: MENDEZ Dudleylin6370 [address] [facility] [place] [id number] GFR/1.73 sq M predicted among blacks CKD-EPI vol rate/area (S/P/Bld) 102 1 Normal Comprehensiv e Internal Medicine Work Phone: Comment on above: PATIENT WAS FASTINGP ERFORMED BY: MENDEZ Dudleylin6370 [address] [facility] [id number] GFR/1.73 sq M predicted among non-blacks CKD-EPI vol rate/area (S/P/Bld) 88 1 Normal [facility] Work Phone: Comment on above: PATIENT WAS FASTINGP ERFORMED BY: MENDEZ Dudleylin[address] [facility] [id number] Globulin Calculated mass conc (S) 2.8 g/dL Normal 1.5-4.5 [facility] Work Phone: Globulin mass conc (S) 2.8 g/dL Normal 1.5-4.5 [facility] Work Phone: Comment on above: PATIENT WAS FASTINGP ERFORMED BY: MENDEZ Dudleylin[address] [facility] [id number] Glucose mass conc 121 mg/dL Abnormal 65-99 Compreh ensive Internal Medicine Work Phone: Comment on above: PATIENT WAS FASTINGP ERFORMED BY: MENDEZ Dudleylin6[address] [facility] [id number] Potassium molar conc 4.6 mmol/L Normal 3.5-5.2 Comp rehensive Internal Medicine Work Phone: Comment on above: PATIENT WAS FASTINGP ERFORMED BY: MENDEZ LabGabbie DudleyDfjdhf0463 [facility] [id number] Protein mass conc 7.4 g/dL Normal 6.0-8.5 Compreh ensive Internal Medicine Work Phone: Comment on above: PATIENT WAS FASTINGP ERFORMED BY: MENDEZ LabGabbie DudleyCpkzud55[address] [facility] [id number] Sodium molar conc 141 mmol/L Normal 134-144 Compreh ensive Internal Medicine Work Phone: Comment on above: PATIENT WAS FASTINGP ERFORMED BY: MENDEZ Heidy Caceres6370 [address] RoadDublin [place] [id number] Urea nitrogen mass conc 17 mg/dL Normal 6-24 [facility] Work Phone: Comment on above: PATIENT WAS FASTINGP ERFORMED BY: MENDEZ LabBrittanymelyssa DudleyLwedcx3789 Al[address]zo RoadDublin [place] [id number] Urea nitrogen/Creatinine mass ratio 17 mg/mg Normal 9-20 [facility] Work Phone: Comment on above: PATIENT WAS FASTINGP ERFORMED BY: MENDEZ CaroleGabbie DudleyVmniaz2105 [address]zo RoadDublin [place] [id number] METABOLIC PANEL, COMPREHENSI VE ([id number])Ordered By: Manager [employer] on 04-17-2017 ALP [Catalytic activity/Vol] 48 U/L Normal 39-117 [facility]; [facility] Work Phone: Comment on above: PATIENT WAS FASTINGP ERFORMED BY: MENDEZ CaroleGabbie DudleyZwpukf3042 Al[address] RoadDublin [place] [id number] ALT [Catalytic activity/Vol] 26 U/L Normal 0-44 [facility]; [facility] Work Phone: Comment on above: PATIENT WAS FASTINGP ERFORMED BY: MENDEZ LabBrittanymelyssa Gbelqt2346 Al[address] RoadDublin [place] [id number] AST [Catalytic activity/Vol] 22 U/L Normal 0-40 [facility]; [facility] Work Phone: Comment on above: PATIENT WAS FASTINGP ERFORMED BY: MENDEZ LabBrittany Wfdfon4873 [address] RoadDublin [place] [id number] MICROALBUMINOrdered By: Syst em Hydraulic Hammer Operator on 04-17-2017 Albumin DL <= 20 mg/L (U) [Mass/Vol] mg/dL Normal Comprehensiv e Internal Medicine; [facility] Work Phone: Comment on above: PATIENT WAS FASTINGP ERFORMED BY: MENDEZ LabBrittanymelyssa Wtudov8245 [address] RoadDublin [place] [id number] MICROALBUMINon 04-17-2017 Albumin DL <= 20 mg/L mass conc (U) mg/dL Normal [facility] Work Phone: Comment on above: PATIENT WAS FASTINGP ERFORMED BY: [facility] Gkwwmm0393 Al[address] Roadblin [place] [id number] Albumin/Creatinine mass ratio (U) <2.9 Normal 0.0-30.0 [facility] Work Phone: Comment on above: PATIENT WAS FASTINGP ERFORMED BY: [facility] Uclbez3086 Al[address]zo RoadAtrium Health [facility] Centerin [place] [id number] Creatinine mass conc (U) 105.2 mg/dL Normal [facility] Work Phone: Comment on above: PATIENT WAS FASTINGP ERFORMED BY: MENDEZ [facility] Wvojpe0341 Al[address]zo RoadAtrium Health [facility] Centerin [place] [id number] Microscopic Examinationon Bacteria LM.HPF #/area (Urine sed) None seen Normal [facility] Work Phone: Comment on above: PATIENT WAS FASTINGP ERFORMED BY: [facility] Eezmqb6308 [address] [facility]in [place] [id number] Epithelial cells LM.HPF #/area (Urine sed) None seen Normal 0 - 10 [facility] Work Phone: Comment on above: PATIENT WAS FASTINGP ERFORMED BY: [facility] Arkfir3735 [address] [facility]in [place] [id number] Mucus LM Ql (Urine sed) Present Normal [facility] Work Phone: Mucus Ql (Urine sed) Present Normal Comp rehensive Internal Medicine Work Phone: Comment on above: PATIENT WAS FASTINGP ERFORMED BY: [facility] Uboqbu5423 [address] RoadDublin [place] [id number] RBC LM.HPF #/area (Urine sed) 0-2 Normal 0 - 2 [facility] Work Phone: Comment on above: PATIENT WAS FASTINGP ERFORMED BY: [facility] Cvmqmx9382 Al[address] Roadblin [place] [id number] WBC LM.HPF #/area (Urine sed) 0-5 Normal 0 - 5 [facility] Work Phone: Comment on above: PATIENT WAS FASTINGP ERFORMED BY: MENDEZ [facility] Pkgvoq2966 [address] RoadDublin [place] [id number] TSH ([id number])on 04-17-2017 Thyrotropin Qn 2.930 {uIU/mL} Normal 0.450-4.50 0 [facility] Work Phone: Comment on above: PATIENT WAS FASTINGP ERFORMED BY: MENDEZ [facility] Qfpmpk1650 [address] RoadDublin [place] [id number] URINALYSIS, W/ MICRO ([id number]) on 04-17-2017 Appearance Nom (U) Clear Normal Compre hensive Internal Medicine Work Phone: Comment on above: PATIENT WAS FASTINGP ERFORMED BY: MENDEZ [facility] Lnfesa9975 [address] RoadDublin [place] [id number] Bilirubin Ql (U) Negative Normal Comprehe nsive Internal Medicine Work Phone: Comment on above: PATIENT WAS FASTINGP ERFORMED BY: MENDEZ [facility] Mrqivj0411 [address] RoadDublin [place] [id number] Color Nom (U) Yellow Normal Comprehensi ve Internal Medicine Work Phone: Comment on above: PATIENT WAS FASTINGP ERFORMED BY: MENDEZ [facility] Nyunzk1944 [address] RoadDublin [place] [id number] Glucose Ql (U) Negative Normal Comprehens tyron Internal Medicine Work Phone: Comment on above: PATIENT WAS FASTINGP ERFORMED BY: MENDEZ [facility] Kntbos6864 [address] RoadDublin [place] [id number] Hemoglobin Ql (U) Negative Normal Compreh ensive Internal Medicine Work Phone: Comment on above: PATIENT WAS FASTINGP ERFORMED BY: MENDEZ [facility] Crtcsf1381 [address] RoadDublin [place] [id number] Hemoglobin Test strip Ql (U) Negative Normal [facility] Work Phone: Ketones Ql (U) Negative Normal Comprehens tyron Internal Medicine Work Phone: Comment on above: PATIENT WAS FASTINGP ERFORMED BY: MENDEZ [facility] Wpdjzz0366 Al[address] RoadDublin [place] [id number] Leukocyte esterase Test strip Ql (U) Negative Normal [facility] Work Phone: Comment on above: PATIENT WAS FASTINGP ERFORMED BY: MENDEZ [facility] Exmkhz0719 [address] RoadDublin [place] [id number] Microscopic observation LM Nom (Urine sed) MICRON Normal [facility] Work Phone: Comment on above: Microscopic follows if indicated. PATIENT WAS FASTINGP ERFORMED BY: MENDEZ [facility] Anbhxa9294 [address] RoadDublin [place] [id number] Microscopic observation LM Nom (Urine sed) See below: Normal [facility] Work Phone: Comment on above: Microscopic was giovanni cated and was performed. PATIENT WAS FASTINGP ERFORMED BY: MENDEZ LabGabbie DudleySnftyw6545 Al[address] RoadDublin [place] [id number] Nitrite Ql (U) Negative Normal Comprehens tyron Internal Medicine Work Phone: Comment on above: PATIENT WAS FASTINGP ERFORMED BY: MENDEZ LabComelyssa DudleyWyxcic1250 [address] RoadDublin [place] [id number] Nitrite Test strip Ql (U) Negative Normal [facility] Work Phone: pH (U) 5.5 [pH] Normal 5.0-7.5 [facility] Work Phone: Comment on above: PATIENT WAS FASTINGP ERFORMED BY: MENDEZ [facility] Wphsqc0906 [address] RoadDublin [place] [id number] pH Test strip (U) 5.5 [pH] Normal 5.0-7.5 Compreh ensive Internal Medicine Work Phone: Protein Ql (U) Negative Normal Comprehens tyron Internal Medicine Work Phone: Comment on above: PATIENT WAS FASTINGP ERFORMED BY: MENDEZ [facility] Ehjnjm8025 [address] RoadDublin [place] [id number] Protein Test strip Ql (U) Negative Normal [facility] Work Phone: Specific gravity Relative Density (U) 1.019 1 Normal 1.005-1.03 0 [facility] Work Phone: Comment on above: PATIENT WAS FASTINGP ERFORMED BY: MENDEZ Zaynabmelyssa DudleyFwwiit3730 Alonzo RoadAtrium Health [id number] Urobilinogen Test strip mass conc (U) 0.2 mg/dL Normal 0.2-1.0 Comprehensiv e Internal Medicine Work Phone: Comment on above: PATIENT WAS FASTINGP ERFORMED BY: MENDEZ [facility] Zjxhox5823 Alonzo RoadAtrium Health [id number] URINALYSIS, W/ MICRO ([id number]) Ordered By: Manager Talent Management on 04-17-2017 Bilirubin Ql (U) Negative Normal Comprehe nsive Internal Medicine; [facility] Work Phone: Comment on above: PATIENT WAS FASTINGP ERFORMED BY: MENDEZ LabGabbie DudleyXavvdk1099 [address] [facility] [id number] Glucose Ql (U) Negative Normal Comprehens tyron Internal Medicine; [facility] Work Phone: Comment on above: PATIENT WAS FASTINGP ERFORMED BY: MENDEZ LabGabbie DudleyXnxbcn4418 [address] [facility] [id number] Hemoglobin Ql (U) Negative Normal Compreh ensive Internal Medicine; [facility] Work Phone: Comment on above: PATIENT WAS FASTINGP ERFORMED BY: MENDEZ LabGabbie DudleyIchrou1150 [address] [facility] [id number] Ketones Ql (U) Negative Normal Comprehens tyron Internal Medicine; [facility] Work Phone: Comment on above: PATIENT WAS FASTINGP ERFORMED BY: MENDEZ [facility] Dpdsqe3451 [address] [facility]in [place] [id number] Leukocyte esterase Test strip Ql (U) Negative Normal [facility]; [facility] Work Phone: Comment on above: PATIENT WAS FASTINGP ERFORMED BY: MENDEZ LabGabbie DudleyCbwhpd0752 Alonzo RoadAtrium Health [facility] Centerin [place] [id number] Nitrite Ql (U) Negative Normal Comprehens tyron Internal Medicine; [facility] Work Phone: Comment on above: PATIENT WAS FASTINGP ERFORMED BY: Baileyu [facility] Qlkfhk3105 [employer]in [place] [id number] Protein Ql (U) Negative Normal [facility]erens tyron Internal [facility]; [facility] Work Phone: Comment on above: PATIENT WAS FASTINGP ERFORMED BY: Baileyu [facility] Qqgocw0449 [address] Postblin [place] [id number] Urobilinogen (U) [Mass/Vol] 0.2 mg/dL Normal 0.2-1.0 [facility]; [facility] Work Phone: Comment on above: PATIENT WAS FASTINGP ERFORMED BY: [facility] Wqimto5043 [employer] [id number] Blood Glucose , Office ([phone])Ordered By: Nita Coleman on 01-23-2017 Glucose Glucometer molar conc (BldC) 119 1 Normal [facility] Work Phone: HgA1C , Office ([phone])Ordere d By: Nita Coleman on 01-23-2017 Hemoglobin A1c/Hemoglobin.total mass fraction (Bld) 6.0 % Normal 4.6 - 7.1 Rustiv e Internal Medicine Work Phone: PSA (PROSTATE SPECIFIC ANTIG EN) ([id number])on 01-09-2017 Prostate specific Ag mass conc 0.5 ng/mL Normal 0.0-4.0 [facility] Work Phone: Comment on above: Bradly ECLIA methodol ogy. .According to the [place] [employer], Serum PSA shoulddecrease and remain at undetectable levels after radicalprostatectomy. The AUA defines biochemical recurrence as an initialPSA value 0.2 ng/mL or greater followed by a subsequent confirmatoryPSA value 0.2 ng/mL or greater.Values obtained with different assay methods or kits cannot be usedinterchangeably. Results cannot be interpreted as absolute evidenceof the presence or absence of malignant disease. PERFORMED BY: Baileyu Lab Gabbie Hjusut3064 [employer]in [place] [id number] Blood Glucose , Office ([phone] 2)Ordered By: Nita Coleman on 10-17-2016 Glucose Glucometer molar conc (BldC) 106 1 Normal [facility] Work Phone: HgA1C , Office ([phone])Ana Maria dayna By: Nita Coleman on 10-17-2016 Hemoglobin A1c/Hemoglobin.total mass fraction (Bld) 5.8 % Normal 4.6 - 7.1 Comprehensiv e Internal Medicine Work Phone: CALCIFEDIOL ([id number])on 2016 25-Hydroxyvitamin D2+25-Hydroxyvitamin D3 mass conc 60.5 ng/mL Normal 30.0-100.0 [facility] Work Phone: Comment on above: Vitamin D deficiency has been defined by the [place] ofTri[facility] Hospitalcine and an Endocrine Society practice guideline as alevel of serum 25-OH vitamin D less than 20 ng/mL (1,2).The Endocrine Society went on to further define vitamin Dinsufficiency as a level between 21 and 29 ng/mL (2).1. IOM ([place] of Medicine). 2010. Dietary reference intakes for calcium and D. [place]: The National Academies Press.2. Magno MF, Do MILES, Jos PRATER, et al. Evaluation, treatment, and prevention of vitamin D deficiency: an Endocrine Society clinical practice guideline. JCEM. 2010; 96(7):1911-30. PATIENT WAS FASTINGP ERFORMED BY: [employer]70 [address] PostAtrium Health Union [id number] CBC WITH MANUAL DIFF ([id number]) on 10-03-2016 Basophils #/vol (Bld) 0.0 {x10E3/uL} Normal 0.0-0.2 [facility] Work Phone: Comment on above: PATIENT WAS FASTINGP ERFORMED BY: Talko Ueonbi3853 [address] [facility] [id number] Basophils Auto #/vol (Bld) 0.0 {x10E3/uL} Normal 0.0-0.2 [facility] Work Phone: Basophils/100 WBC (Bld) 0 % Normal [facility] Work Phone: Comment on above: PATIENT WAS FASTINGP ERFORMED BY: [facility] [facility] [id number] Basophils/100 WBC Auto (Bld) 0 % Normal [facility] Work Phone: Eosinophils #/vol (Bld) 0.2 {x10E3/uL} Normal 0.0-0.4 [facility] Work Phone: Comment on above: PATIENT WAS FASTINGP ERFORMED BY: [place] [id number] [facility] [id number] Eosinophils Auto #/vol (Bld) 0.2 {x10E3/uL} Normal 0.0-0.4 [facility] Work Phone: Eosinophils/100 WBC (Bld) 2 % Normal [facility] Work Phone: Comment on above: PATIENT WAS FASTINGP ERFORMED BY: [place] [id number] [facility] [id number] Eosinophils/100 WBC Auto (Bld) 2 % Normal [facility] Work Phone: Erythrocyte distribution width Auto Ratio (RBC) 14.5 % Normal 12.3-15.4 [facility] Work Phone: Erythrocyte distribution width Ratio (RBC) 14.5 % Normal 12.3-15.4 [facility] Work Phone: Comment on above: PATIENT WAS FASTINGP ERFORMED BY: [place] [id number] [facility] [id number] Hematocrit Auto Volume Fraction (Bld) 47.1 % Normal 37.5-51.0 [facility] Work Phone: Hematocrit Volume Fraction (Bld) 47.1 % Normal 37.5-51.0 [facility] Work Phone: Comment on above: PATIENT WAS FASTINGP ERFORMED BY: [place] [id number] [facility] [id number] Hemoglobin mass conc (Bld) 15.5 g/dL Normal 12.6-17.7 [facility] Work Phone: Comment on above: PATIENT WAS FASTINGP ERFORMED BY: [facility]6[address] [facility] [id number] Immature granulocytes #/vol (Bld) 0.0 {x10E3/uL} Normal 0.0-0.1 [facility] Work Phone: Comment on above: PATIENT WAS FASTINGP ERFORMED BY: [place] [id number] [address] [facility] [id number] Immature granulocytes/100 WBC (Bld) 0 % Normal [facility] Work Phone: Comment on above: PATIENT WAS FASTINGP ERFORMED BY: [place] 9213970 [facility] [id number] Lymphocytes #/vol (Bld) 2.4 {x10E3/uL} Normal 0.7-3.1 [facility] Work Phone: Comment on above: PATIENT WAS FASTINGP ERFORMED BY: [place] 9213970 [facility] [id number] Lymphocytes Auto #/vol (Bld) 2.4 {x10E3/uL} Normal 0.7-3.1 [facility] Work Phone: Lymphocytes/100 WBC (Bld) 31 % Normal [facility] Work Phone: Comment on above: PATIENT WAS FASTINGP ERFORMED BY: [place] 9213970 [facility] [id number] Lymphocytes/100 WBC Auto (Bld) 31 % Normal [facility] Work Phone: MCH Auto Entitic mass (RBC) 27.5 pg Normal 26.6-33.0 [facility] Work Phone: MCH Entitic mass (RBC) 27.5 pg Normal 26.6-33.0 [facility] Work Phone: Comment on above: PATIENT WAS FASTINGP ERFORMED BY: [place] [id number] [facility] [id number] MCHC Auto mass conc (RBC) 32.9 g/dL Normal 31.5-35.7 [facility] Work Phone: MCHC mass conc (RBC) 32.9 g/dL Normal 31.5-35.7 Comp rehensive Internal Medicine Work Phone: Comment on above: PATIENT WAS FASTINGP ERFORMED BY: [place] 92139[address] [facility] [id number] MCV Auto Entitic volume (RBC) 84 fL Normal 79-97 [facility] Work Phone: MCV Entitic volume (RBC) 84 fL Normal 79-97 [facility] Work Phone: Comment on above: PATIENT WAS FASTINGP ERFORMED BY: [address] [id number] Monocytes #/vol (Bld) 0.6 {x10E3/uL} Normal 0.1-0.9 [facility] Work Phone: Comment on above: PATIENT WAS FASTINGP ERFORMED BY: [address] [id number] Monocytes Auto #/vol (Bld) 0.6 {x10E3/uL} Normal 0.1-0.9 [facility] Work Phone: Monocytes/100 WBC (Bld) 7 % Normal [facility] Work Phone: Comment on above: PATIENT WAS FASTINGP ERFORMED BY: [place] [id number] [facility] [id number] Monocytes/100 WBC Auto (Bld) 7 % Normal [facility] Work Phone: Neutrophils #/vol (Bld) 4.6 {x10E3/uL} Normal 1.4-7.0 [facility] Work Phone: Comment on above: PATIENT WAS FASTINGP ERFORMED BY: [address] [id number] Neutrophils Auto #/vol (Bld) 4.6 {x10E3/uL} Normal 1.4-7.0 [facility] Work Phone: Neutrophils/100 WBC (Bld) 60 % Normal [facility] Work Phone: Comment on above: PATIENT WAS FASTINGP ERFORMED BY: MENDEZ [facility] [id number] Neutrophils/100 WBC Auto (Bld) 60 % Normal [facility] Work Phone: Platelets #/vol (Bld) 252 {x10E3/uL} Normal 150-379 [facility] Work Phone: Comment on above: PATIENT WAS FASTINGP ERFORMED BY: MENDEZ [facility] Uzmyin7196 [address] [id number] Platelets Auto #/vol (Bld) 252 {x10E3/uL} Normal 150-379 [facility] Work Phone: RBC #/vol (Bld) 5.64 {x10E6/uL} Normal 4.14-5.80 [facility] Internal Medicine Work Phone: Comment on above: PATIENT WAS FASTINGP ERFORMED BY: MENDEZ [facility] Qziycg8434 [address] [id number] RBC Auto #/vol (Bld) 5.64 {x10E6/uL} Normal 4.14-5.80 [facility] Work Phone: WBC #/vol (Bld) 7.7 {x10E3/uL} Normal 3.4-10.8 [facility] Internal Medicine Work Phone: Comment on above: PATIENT WAS FASTINGP ERFORMED BY: MENDEZ [facility] [id number] WBC Auto #/vol (Bld) 7.7 {x10E3/uL} Normal 3.4-10.8 [facility] Work Phone: CBC WITH MANUAL DIFF ([id number]) Ordered By: Manager Talent Management on 10-03-2016 Basophils (Bld) [#/Vol] 0.0 10*3/uL Normal 0.0-0.2 [facility]; [facility] Work Phone: Comment on above: PATIENT WAS FASTINGP ERFORMED BY: MENDEZ [place] [id number] [facility] [id number] Eosinophils (Bld) [#/Vol] 0.2 10*3/uL Normal 0.0-0.4 [facility]; [facility] Work Phone: Comment on above: PATIENT WAS FASTINGP ERFORMED BY: [facility] Enmkfy0527 [address] [facility] [place] [id number] Immature granulocytes (Bld) [#/Vol] 0.0 10*3/uL Normal 0.0-0.1 [facility]; [facility] Work Phone: Comment on above: PATIENT WAS FASTINGP ERFORMED BY: [facility] Nhpatc2918 [address] [facility] [place] [id number] Lymphocytes (Bld) [#/Vol] 2.4 10*3/uL Normal 0.7-3.1 [facility]; [facility] Internal Medicine Work Phone: Comment on above: PATIENT WAS FASTINGP ERFORMED BY: LabPershing Memorial HospitalTkmotp2859 [address] [facility] [id number] Monocytes (Bld) [#/Vol] 0.6 10*3/uL Normal 0.1-0.9 [facility]; [facility] Work Phone: Comment on above: PATIENT WAS FASTINGP ERFORMED BY: LabCoThe Rehabilitation Hospital of Tinton FallsMkhavx4835 [address] [facility]in [place] [id number] Neutrophils (Bld) [#/Vol] 4.6 10*3/uL Normal 1.4-7.0 [facility]; [facility] Work Phone: Comment on above: PATIENT WAS FASTINGP ERFORMED BY: [facility] Lurkjp7127 [address] [facility] [place] [id number] Platelets (Bld) [#/Vol] 252 10*3/uL Normal 150-379 [facility]; [facility] Work Phone: Comment on above: PATIENT WAS FASTINGP ERFORMED BY: [facility] Jodquy2983 [address] [facility]bl[facility] [place] [id number] RBC (Bld) [#/Vol] 5.64 10*6/uL Normal 4.14-5.80 Compr ehensive Internal Medicine; [facility] Work Phone: Comment on above: PATIENT WAS FASTINGP ERFORMED BY: MENDEZ LabGabbie DudleyBnjxhq7830 [address] [facility]bl[facility] [place] [id number] WBC (Bld) [#/Vol] 7.7 10*3/uL Normal 3.4-10.8 Compre hensive Internal Medicine; [facility] Work Phone: Comment on above: PATIENT WAS FASTINGP ERFORMED BY: MENDEZ LabGabbie DudleyZosxnj0027 Alonzo RoadAtrium Health [facility] Centerin [place] [id number] Lipid Panel ([id number])on 2016 Cholesterol in HDL mass conc 32 mg/dL Abnormal [facility] Work Phone: Comment on above: PATIENT WAS FASTINGP ERFORMED BY: MENDEZ Dudleylin6370 [address] [facility] [place] [id number] Cholesterol in LDL mass conc 87 mg/dL Normal 0-99 [facility] Work Phone: Comment on above: PATIENT WAS FASTINGP ERFORMED BY: MENDEZ Dudleylin6370 [address] [facility] [id number] Cholesterol in LDL/Cholesterol in HDL mass ratio 2.7 {ratio_units} Normal 0.0-3.6 [facility] Work Phone: Comment on above: LDL/HDL Ratio Men Wo men 1/2 Avg.Risk 1.0 1.5 Avg.Risk 3.6 3.2 2X Avg.Risk 6.2 5.0 3X Avg.Risk 8.0 6.1 PATIENT WAS FASTINGP ERFORMED BY: MENDEZ Dudleylin6370 [address] [facility] [place] [id number] Cholesterol in VLDL mass conc 79 mg/dL Abnormal 5-40 [facility] Work Phone: Comment on above: PATIENT WAS FASTINGP ERFORMED BY: MENDEZ LabGabbie Fzdwlq7789 [address] [facility] HospitalDublin [place] [id number] Cholesterol mass conc 198 mg/dL Normal 100-199 [facility] Work Phone: Comment on above: PATIENT WAS FASTINGP ERFORMED BY: MENDEZ LabGabbie DudleyUgqlgs3957 [facility] [id number] Triglyceride mass conc 393 mg/dL Abnormal 0-149 [facility] Work Phone: Comment on above: PATIENT WAS FASTINGP ERFORMED BY: MENDEZ Heidy Caceres6370 [facility] [id number] MICROALBUMINOrdered By: Syst em Hydraulic Hammer Operator on 10-03-2016 Albumin DL <= 20 mg/L (U) [Mass/Vol] mg/dL Normal Comprehensiv e [facility] Medicine; [facility] Work Phone: Comment on above: PATIENT WAS FASTINGP ERFORMED BY: MENDEZ CaroleGabbie DudleyNsywmx5558 [facility] [id number] MICROALBUMINon 10-03-2016 Albumin DL <= 20 mg/L mass conc (U) mg/dL Normal [facility] Work Phone: Comment on above: PATIENT WAS FASTINGP ERFORMED BY: MENDEZ CaroleGabbie DudleyLxwfpo5630 [facility] [id number] Albumin/Creatinine mass ratio (U) <1.9 Normal 0.0-30.0 [facility] Work Phone: Comment on above: PATIENT WAS FASTINGP ERFORMED BY: MENDEZ CaroleGabbie DudleyYprdmo2539 [facility] [id number] Creatinine mass conc (U) 159.5 mg/dL Normal [facility] Work Phone: Comment on above: PATIENT WAS FASTINGP ERFORMED BY: MENDEZ Dudleylin6370 [facility] [id number] Metabolic Panel, Comprehensi ve (93305)on 10-03-2016 Albumin mass conc 4.7 g/dL Normal 3.5-5.5 Compreh ensive Internal Medicine Work Phone: Comment on above: PATIENT WAS FASTINGP ERFORMED BY: MENDEZ CaroleGabbie DudleyNvvsvy9803 [facility] [id number] Albumin/Globulin mass ratio 1.7 {ratio} Normal 1.2-2.2 [facility] Work Phone: Comment on above: PATIENT WAS FASTINGP ERFORMED BY: MENDEZ [facility] Yighyp1801 Al[address]zo RoadDublin [place] [id number] ALP enzyme act/vol 46 [iU]/L Normal 39-117 [facility] Work Phone: Comment on above: PATIENT WAS FASTINGP ERFORMED BY: MENDEZ [facility] Jowycn7721 [address]zo RoadDublin [place] [id number] ALT enzyme act/vol 15 [iU]/L Normal 0-44 [facility] Internal Medicine Work Phone: Comment on above: PATIENT WAS FASTINGP ERFORMED BY: MENDEZ [facility] Koagtj4744 [address]zo RoadDublin [place] [id number] AST enzyme act/vol 14 [iU]/L Normal 0-40 [facility] Internal Medicine Work Phone: Comment on above: PATIENT WAS FASTINGP ERFORMED BY: MENDEZ LabBrittanyrp Sdpsys7477 Al[address] RoadDublin [place] [id number] Bilirubin mass conc 0.5 mg/dL Normal 0.0-1.2 [facility] Internal Medicine Work Phone: Comment on above: PATIENT WAS FASTINGP ERFORMED BY: MENDEZ [facility] Dgkinq7883 [address]zo RoadDublin [place] [id number] Calcium mass conc 9.9 mg/dL Normal 8.7-10.[address] [facility] Work Phone: Comment on above: PATIENT WAS FASTINGP ERFORMED BY: MENDEZ [facility] Yzayfe6028 [address]zo RoadDublin [place] [id number] Chloride molar conc 100 mmol/L Normal 96-[address] [facility] Internal Medicine Work Phone: Comment on above: PATIENT WAS FASTINGP ERFORMED BY: MENDEZ [facility] Bndfus5859 [address] RoadDublin [place] [id number] CO2 molar conc 24 mmol/L Normal 18-29 Comprehens tyron Internal Medicine Work Phone: Comment on above: PATIENT WAS FASTINGP ERFORMED BY: MENDEZ [facility] Brkopo3697 [address] RoadDublin [place] [id number] Creatinine mass conc 0.88 mg/dL Normal 0.76-1.27 Comp rehensive Internal Medicine Work Phone: Comment on above: PATIENT WAS FASTINGP ERFORMED BY: [facility] Fcdgym2380 Al[address]zo Roadblin [place] [id number] GFR/1.73 sq M predicted among blacks CKD-EPI vol rate/area (S/P/Bld) 117 mL/min/1.73 Normal Comprehensiv e Internal Medicine Work Phone: Comment on above: PATIENT WAS FASTINGP ERFORMED BY: CB [facility] Cszfkp0225 Al[address] Roadblin [place] [id number] GFR/1.73 sq M predicted among non-blacks CKD-EPI vol rate/area (S/P/Bld) 102 mL/min/1.73 Normal [facility] Work Phone: Comment on above: PATIENT WAS FASTINGP ERFORMED BY: LabCo Mbtvfh7207 [address] [facility]in [place] [id number] Globulin Calculated mass conc (S) 2.8 g/dL Normal 1.5-4.5 [facility] Work Phone: Globulin mass conc (S) 2.8 g/dL Normal 1.5-4.5 [facility] Work Phone: Comment on above: PATIENT WAS FASTINGP ERFORMED BY: [facility] Phobif0675 [address] [facility] [place] [id number] Glucose mass conc 116 mg/dL Abnormal 65-99 Compreh ensive Internal Medicine Work Phone: Comment on above: PATIENT WAS FASTINGP ERFORMED BY: [facility] Jomgin9774 [address] [facility]in [place] [id number] Potassium molar conc 4.5 mmol/L Normal 3.5-5.2 Comp rehensive Internal Medicine Work Phone: Comment on above: PATIENT WAS FASTINGP ERFORMED BY: [facility] Nbhfip1343 [address] [facility]in [place] [id number] Protein mass conc 7.5 g/dL Normal 6.0-8.5 Compreh ensive Internal Medicine Work Phone: Comment on above: PATIENT WAS FASTINGP ERFORMED BY: MENDEZ Dudleylin6370 [facility] [facility]in [place] [id number] Sodium molar conc 140 mmol/L Normal 134-144 Compreh ensive Internal Medicine Work Phone: Comment on above: PATIENT WAS FASTINGP ERFORMED BY: MENDEZ Caceres6370 [address] [facility] [id number] Urea nitrogen mass conc 15 mg/dL Normal 6-24 [facility] Work Phone: Comment on above: PATIENT WAS FASTINGP ERFORMED BY: MENDEZ Dudleylin6370 [address] RoadAtrium [facility]in [place] [id number] Urea nitrogen/Creatinine mass ratio 17 mg/mg Normal 9-20 [facility] Work Phone: Comment on above: PATIENT WAS FASTINGP ERFORMED BY: MENDEZ Dudleylin6370 [address] [facility] [id number] Metabolic Panel, Comprehensi ve ([id number])Ordered By: Manager Talent Management on 10-03-2016 ALP [Catalytic activity/Vol] 46 U/L Normal 39-117 [facility]; [facility] Work Phone: Comment on above: PATIENT WAS FASTINGP ERFORMED BY: MENDEZ Dudleylin6370 [address] [facility] [id number] ALT [Catalytic activity/Vol] 15 U/L Normal 0-44 [facility]; [facility] Work Phone: Comment on above: PATIENT WAS FASTINGP ERFORMED BY: MENDEZ Dudleylin6370 [facility] [facility] [place] [id number] AST [Catalytic activity/Vol] 14 U/L Normal 0-40 [facility]; [facility] Work Phone: Comment on above: PATIENT WAS FASTINGP ERFORMED BY: MENDEZ Dudleylin6370 [facility] [facility] [place] [id number] Microscopic Examinationon Bacteria LM.HPF #/area (Urine sed) None seen Normal [facility] Work Phone: Comment on above: PATIENT WAS FASTINGP ERFORMED BY: CB [facility] Ugcpkk4743 [address] [facility]in [place] [id number] Crystals LM Nom (Urine sed) Calcium Oxalate Normal [facility] Work Phone: Comment on above: PATIENT WAS FASTINGP ERFORMED BY: [facility] Raxdae4327 [address] [facility] [place] [id number] Epithelial cells LM.HPF #/area (Urine sed) None seen Normal 0 - 10 [facility] Work Phone: Comment on above: PATIENT WAS FASTINGP ERFORMED BY: [facility] Hiqwav8186 [address] [facility]in [place] [id number] Mucus LM Ql (Urine sed) Present Normal [facility] Work Phone: Mucus Ql (Urine sed) Present Normal Comp rehensive Internal Medicine Work Phone: Comment on above: PATIENT WAS FASTINGP ERFORMED BY: LabPershing Memorial HospitalMhxnle4752 [address] [facility] [place] [id number] RBC LM.HPF #/area (Urine sed) 0-2 Normal 0 - 2 [facility] Work Phone: Comment on above: PATIENT WAS FASTINGP ERFORMED BY: [facility] Lsmcpw7192 [facility] [facility]in [place] [id number] Unidentified crystals LM Ql (Urine sed) Present Abnormal [facility] Work Phone: Comment on above: PATIENT WAS FASTINGP ERFORMED BY: [facility] Tanugs1383 [address] [facility] [place] [id number] WBC LM.HPF #/area (Urine sed) 0-5 Normal 0 - 5 [facility] Work Phone: Comment on above: PATIENT WAS FASTINGP ERFORMED BY: [facility] Sstvtl0477 [facility]in [place] [id number] TSH (95212)on 10-03-2016 Thyrotropin Qn 4.020 {uIU/mL} Normal 0.450-4.50 0 [facility] Work Phone: Comment on above: PATIENT WAS FASTINGP ERFORMED BY: [facility] Krxcen0933 [address] [facility] [place] [id number] URINALYSIS, W/ MICRO ([id number]) on 10-03-2016 Appearance Nom (U) Clear Normal Compre hensive Internal Medicine Work Phone: Comment on above: PATIENT WAS FASTINGP ERFORMED BY: MENDEZ Dudleylin6370 [address] RoadDublin [place] [id number] Bilirubin Ql (U) Negative Normal Comprehe nsive Internal Medicine Work Phone: Comment on above: PATIENT WAS FASTINGP ERFORMED BY: MENDEZ Caceres6370 [address] RoadAt[facility] Centerin [place] [id number] Color Nom (U) Yellow Normal Comprehensi ve Internal Medicine Work Phone: Comment on above: PATIENT WAS FASTINGP ERFORMED BY: MENDEZ Caceres6370 [address] RoadDublin [place] [id number] Glucose Ql (U) Negative Normal Comprehens tyron Internal Medicine Work Phone: Comment on above: PATIENT WAS FASTINGP ERFORMED BY: MENDEZ Caceres6370 [address] RoadAtrium [facility] Centerin [place] [id number] Hemoglobin Ql (U) Negative Normal Compreh ensive Internal Medicine Work Phone: Comment on above: PATIENT WAS FASTINGP ERFORMED BY: MENDEZ Caceres6370 [address] RoadBristol [place] [id number] Hemoglobin Test strip Ql (U) Negative Normal [facility] Work Phone: Ketones Ql (U) Negative Normal Comprehens tyron Internal Medicine Work Phone: Comment on above: PATIENT WAS FASTINGP ERFORMED BY: MENDEZ Dudleylin6370 [address] RoadAtrium Health [facility] Centerin [place] [id number] Leukocyte esterase Test strip Ql (U) Negative Normal [facility] Work Phone: Comment on above: PATIENT WAS FASTINGP ERFORMED BY: MENDEZ Dudleylin6370 [address] RoadDublin [place] [id number] Microscopic observation LM Nom (Urine sed) MICRON Normal [facility] Work Phone: Comment on above: Microscopic follows if indicated. PATIENT WAS FASTINGP ERFORMED BY: MENDEZ Dudleylin6370 [address] RoadDublin [place] [id number] Microscopic observation LM Nom (Urine sed) See below: Normal [facility] Work Phone: Comment on above: Microscopic was giovanni cated and was performed. PATIENT WAS FASTINGP ERFORMED BY: MENDEZ LabComelyssa DudleyUweaur5336 [address] RoadDublin [place] [id number] Nitrite Ql (U) Negative Normal Comprehens tyron Internal Medicine Work Phone: Comment on above: PATIENT WAS FASTINGP ERFORMED BY: MENDEZ [facility] Qieqaq0547 [address] RoadDublin [place] [id number] Nitrite Test strip Ql (U) Negative Normal [facility] Work Phone: pH (U) 6.0 [pH] Normal 5.0-7.5 [facility] Work Phone: Comment on above: PATIENT WAS FASTINGP ERFORMED BY: MENDEZ [facility] Iiqtmc2814 [address] RoadDublin [place] [id number] pH Test strip (U) 6.0 [pH] Normal 5.0-7.5 Compreh ensive Internal Medicine Work Phone: Protein Ql (U) Negative Normal Comprehens tyron Internal Medicine Work Phone: Comment on above: PATIENT WAS FASTINGP ERFORMED BY: MENDEZ LabGabbie DudleyPrgkcg3610 [address] RoadDublin [place] [id number] Protein Test strip Ql (U) Negative Normal [facility] Work Phone: Specific gravity Relative Density (U) 1.021 1 Normal 1.005-1.03 0 [facility] Work Phone: Comment on above: PATIENT WAS FASTINGP ERFORMED BY: MENDEZ [facility] Nfjojj2147 [address] RoadDublin [place] [id number] Urobilinogen Test strip mass conc (U) 0.2 mg/dL Normal 0.2-1.0 Comprehensiv e Internal Medicine Work Phone: Comment on above: PATIENT WAS FASTINGP ERFORMED BY: MENDEZ [facility] Izxbhp5740 [address] RoadDublin [place] [id number] URINALYSIS, W/ MICRO ([id number]) Ordered By: Manager Talent Management on 10-03-2016 Bilirubin Ql (U) Negative Normal Comprehe nsive Internal Medicine; [facility] Work Phone: Comment on above: PATIENT WAS FASTINGP ERFORMED BY: MENDEZ [facility] Qtuaqg5281 [address] RoadDublin [place] [id number] Glucose Ql (U) Negative Normal Comprehens tyron [facility] Medicine; [facility] Work Phone: Comment on above: PATIENT WAS FASTINGP ERFORMED BY: MENDEZ [facility] Jvjjvo1376 [address] RoadDublin [place] [id number] Hemoglobin Ql (U) Negative Normal Compreh ensive Internal Medicine; [facility] Work Phone: Comment on above: PATIENT WAS FASTINGP ERFORMED BY: MENDEZ [facility] Gfrbgl8591 [address] RoadDublin [place] [id number] Ketones Ql (U) Negative Normal Comprehens tyron Internal Medicine; [facility] Work Phone: Comment on above: PATIENT WAS FASTINGP ERFORMED BY: MENDEZ [facility] Exunum1038 [address] RoadDublin [place] [id number] Leukocyte esterase Test strip Ql (U) Negative Normal [facility]; [facility] Work Phone: Comment on above: PATIENT WAS FASTINGP ERFORMED BY: MENDEZ [facility] Wnxgmw5654 [address] RoadDublin [place] [id number] Nitrite Ql (U) Negative Normal Comprehens tyron Internal Medicine; [facility] Work Phone: Comment on above: PATIENT WAS FASTINGP ERFORMED BY: MENDEZ [facility] Vtpfjr3044 [address] RoadDublin [place] [id number] Protein Ql (U) Negative Normal Comprehens tyron Internal Medicine; [facility] Work Phone: Comment on above: PATIENT WAS FASTINGP ERFORMED BY: MENDEZ [facility] Vxwpqk6179 [address] RoadDublin [place] [id number] Urobilinogen (U) [Mass/Vol] 0.2 mg/dL Normal 0.2-1.0 [facility]; [facility] Work Phone: Comment on above: PATIENT WAS FASTINGP ERFORMED BY: [facility] Vkafpz9193 [facility] [id number] Blood Glucose , Office ([phone])Ordered By: Nancy Young on 07-11-2016 Glucose Glucometer molar conc (BldC) 119 1 Normal [facility] Work Phone: HgA1C , Office ([phone])Ordere d By: Nita Coleman on 07-11-2016 Hemoglobin A1c/Hemoglobin.total mass fraction (Bld) 5.9 % Normal 4.6 - 7.1 Comprehensiv e Internal Medicine Work Phone: Rapid Flu (06201 x 2)Ordered By: Kim Ordonez on 04-10-2016 FLUAV Ag IA Ql (Throat) Positive Normal [facility] Work Phone: FLUAV Ag IA Ql (Throat) Positive Normal [facility]; [facility] Work Phone: Blood Glucose , Office ([phone])Ordered By: Nancy Young on 03-21-2016 Glucose Glucometer molar conc (BldC) 119 1 Normal [facility] Work Phone: HgA1C , Office ([phone])Ordere d By: Nancy Young on 03-21-2016 Hemoglobin A1c/Hemoglobin.total mass fraction (Bld) 5.7 % Normal 4.6 - 7.1 Comprehensiv e Internal Medicine Work Phone: CALCIFIDIOL ([id number]) VIT D 25 on 03-07-2016 25-Hydroxyvitamin D2+25-Hydroxyvitamin D3 mass conc 56.1 ng/mL Normal 30.0-100.0 [facility] Work Phone: Comment on above: Vitamin D deficiency has been defined by the [place] of[place]icine and an Endocrine Society practice guideline as alevel of serum 25-OH vitamin D less than 20 ng/mL (1,2).The Endocrine Society went on to further define vitamin Dinsufficiency as a level between 21 and 29 ng/mL (2).1. IOM ([place] of [employer]). 2010. Dietary reference intakes for calcium and D. [place]: The National Academies Press.2. Magno MF, Do [place], Jos PRATER, et al. Evaluation, treatment, and prevention of vitamin D deficiency: an Endocrine Society clinical practice guideline. JCEM. 2010; 96(7):1911-30. PATIENT WAS FASTINGP ERFORMED BY: LabP[facility] Mdutqd5758 [address] [facility]in [place] [id number] CBC W/AUTO DIFF WBC (70280)o n 03-07-2016 Basophils #/vol (Bld) 0.0 {x10E3/uL} Normal 0.0-0.2 [facility] Work Phone: Comment on above: PATIENT WAS FASTINGP ERFORMED BY: [facility] [id number] Basophils Auto #/vol (Bld) 0.0 {x10E3/uL} Normal 0.0-0.2 [facility] Work Phone: Basophils/100 WBC (Bld) 0 % Normal [facility] Work Phone: Comment on above: PATIENT WAS FASTINGP ERFORMED BY: [facility]6[address] [id number] Basophils/100 WBC Auto (Bld) 0 % Normal [facility] Work Phone: Eosinophils #/vol (Bld) 0.2 {x10E3/uL} Normal 0.0-0.4 [facility] Work Phone: Comment on above: PATIENT WAS FASTINGP ERFORMED BY: [facility]6[address] [id number] Eosinophils Auto #/vol (Bld) 0.2 {x10E3/uL} Normal 0.0-0.4 [facility] Work Phone: Eosinophils/100 WBC (Bld) 3 % Normal [facility] Work Phone: Comment on above: PATIENT WAS FASTINGP ERFORMED BY: LabHealthsource [place]6370 [address] [facility] [place] [id number] Eosinophils/100 WBC Auto (Bld) 3 % Normal [facility] Work Phone: Erythrocyte distribution width Auto Ratio (RBC) 14.0 % Normal 12.3-15.4 [facility] Work Phone: Erythrocyte distribution width Ratio (RBC) 14.0 % Normal 12.3-15.4 [facility] Work Phone: Comment on above: PATIENT WAS FASTINGP ERFORMED BY: MENDEZ [employer] Hbvsli7770 [address] People Operating TechnologyAtrium Health [id number] Hematocrit Auto Volume Fraction (Bld) 44.4 % Normal 37.5-51.0 [facility] Work Phone: Hematocrit Volume Fraction (Bld) 44.4 % Normal 37.5-51.0 [facility] Work Phone: Comment on above: PATIENT WAS FASTINGP ERFORMED BY: MENDEZ [employer] Tvrgvr7764 [address] People Operating TechnologyAtrium Health [id number] Hemoglobin mass conc (Bld) 14.9 g/dL Normal 12.6-17.7 [facility] Work Phone: Comment on above: PATIENT WAS FASTINGP ERFORMED BY: MENDEZ [employer]6370 [address] People Operating TechnologyAtrium Health [facility] Centerin [place] [id number] Immature granulocytes #/vol (Bld) 0.0 {x10E3/uL} Normal 0.0-0.1 [facility] Work Phone: Comment on above: PATIENT WAS FASTINGP ERFORMED BY: LabVena Solutionsrp Unvexi7002 [address] People Operating TechnologyAtrium Health [id number] Immature granulocytes/100 WBC (Bld) 0 % Normal [facility] Work Phone: Comment on above: PATIENT WAS FASTINGP ERFORMED BY: LabVena Solutionsrp Ccsgub2798 [address] People Operating TechnologyAtrium Health [facility] Centerin [place] [id number] Lymphocytes #/vol (Bld) 2.1 {x10E3/uL} Normal 0.7-3.1 [facility] Work Phone: Comment on above: PATIENT WAS FASTINGP ERFORMED BY: [facility] Qwgqap3992 [address] People Operating TechnologyAtrium Health [id number] Lymphocytes Auto #/vol (Bld) 2.1 {x10E3/uL} Normal 0.7-3.1 [facility] Work Phone: Lymphocytes/100 WBC (Bld) 35 % Normal [facility] Work Phone: Comment on above: PATIENT WAS FASTINGP ERFORMED BY: MENDEZ [facility] ComplexGabbie DudleyYxmdqi1120 [facility] [id number] Lymphocytes/100 WBC Auto (Bld) 35 % Normal [facility] Work Phone: MCH Auto Entitic mass (RBC) 27.1 pg Normal 26.6-33.0 [facility] Work Phone: MCH Entitic mass (RBC) 27.1 pg Normal 26.6-33.0 [facility] Work Phone: Comment on above: PATIENT WAS FASTINGP ERFORMED BY: MENDEZ [facility] Hospitalmelyssa DudleyScaito[address] [id number] MCHC Auto mass conc (RBC) 33.6 g/dL Normal 31.5-35.7 [facility] Work Phone: MCHC mass conc (RBC) 33.6 g/dL Normal 31.5-35.[address] [facility] Internal Medicine Work Phone: Comment on above: PATIENT WAS FASTINGP ERFORMED BY: MENDEZ Dudleylin6370 [facility] [id number] MCV Auto Entitic volume (RBC) 81 fL Normal 79-97 [facility] Work Phone: MCV Entitic volume (RBC) 81 fL Normal 79-97 [facility] Work Phone: Comment on above: PATIENT WAS FASTINGP ERFORMED BY: MENDEZ [facility] Aebnqj0789 [address] [id number] Monocytes #/vol (Bld) 0.4 {x10E3/uL} Normal 0.1-0.9 [facility] Work Phone: Comment on above: PATIENT WAS FASTINGP ERFORMED BY: MENDEZ LabAndrew Ville [id number] [facility] [id number] Monocytes Auto #/vol (Bld) 0.4 {x10E3/uL} Normal 0.1-0.9 [facility] Work Phone: Monocytes/100 WBC (Bld) 7 % Normal [facility] Work Phone: Comment on above: PATIENT WAS FASTINGP ERFORMED BY: MENDEZ [place] [id number] [facility] [id number] Monocytes/100 WBC Auto (Bld) 7 % Normal [facility] Work Phone: Neutrophils #/vol (Bld) 3.3 {x10E3/uL} Normal 1.4-7.0 [facility] Work Phone: Comment on above: PATIENT WAS FASTINGP ERFORMED BY: MENDEZ [address] [id number] Neutrophils Auto #/vol (Bld) 3.3 {x10E3/uL} Normal 1.4-7.0 [facility] Work Phone: Neutrophils/100 WBC (Bld) 55 % Normal [facility] Work Phone: Comment on above: PATIENT WAS FASTINGP ERFORMED BY: [address] [id number] Neutrophils/100 WBC Auto (Bld) 55 % Normal [facility] Work Phone: Platelets #/vol (Bld) 260 {x10E3/uL} Normal 150-379 [facility] Work Phone: Comment on above: PATIENT WAS FASTINGP ERFORMED BY: [place] [id number] [facility] [id number] Platelets Auto #/vol (Bld) 260 {x10E3/uL} Normal 150-379 [facility] Work Phone: RBC #/vol (Bld) 5.50 {x10E6/uL} Normal 4.14-5.80 Comp rehensive Internal Medicine Work Phone: Comment on above: PATIENT WAS FASTINGP ERFORMED BY: [place] [id number] [facility] [id number] RBC Auto #/vol (Bld) 5.50 {x10E6/uL} Normal 4.14-5.80 [facility] Internal Medicine Work Phone: WBC #/vol (Bld) 6.0 {x10E3/uL} Normal 3.4-10.8 [facility] Internal Medicine Work Phone: Comment on above: PATIENT WAS FASTINGP ERFORMED BY: MENDEZ [facility] Xftjnb3485 [address] [facility] [id number] WBC Auto #/vol (Bld) 6.0 {x10E3/uL} Normal 3.4-10.8 [facility] Internal Medicine Work Phone: CBC W/AUTO DIFF WBC ([id number])O rdered By: Manager [employer] on 03-07-2016 Basophils (Bld) [#/Vol] 0.0 10*3/uL Normal 0.0-0.2 [facility] Internal Medicine; [facility] Internal Medicine Work Phone: Comment on above: PATIENT WAS FASTINGP ERFORMED BY: MENDEZ [facility] Okxafc8170 [address] [id number] Eosinophils (Bld) [#/Vol] 0.2 10*3/uL Normal 0.0-0.4 [facility] Internal Medicine; [facility] Internal Medicine Work Phone: Comment on above: PATIENT WAS FASTINGP ERFORMED BY: MENDEZ [facility] Nfoqpv5403 [facility] [id number] Immature granulocytes (Bld) [#/Vol] 0.0 10*3/uL Normal 0.0-0.1 [facility] Internal Medicine; [facility] Internal Medicine Work Phone: Comment on above: PATIENT WAS FASTINGP ERFORMED BY: [facility] Jytlcs3242 [facility] [address] [id number] Lymphocytes (Bld) [#/Vol] 2.1 10*3/uL Normal 0.7-3.1 [facility]; [facility] Internal Medicine Work Phone: Comment on above: PATIENT WAS FASTINGP ERFORMED BY: [facility] Aaylna[address] [id number] Monocytes (Bld) [#/Vol] 0.4 10*3/uL Normal 0.1-0.9 [facility]; [facility] Work Phone: Comment on above: PATIENT WAS FASTINGP ERFORMED BY: MENDEZ [facility] Qjbynh0181 [address]zo RoadDublin [place] [id number] Neutrophils (Bld) [#/Vol] 3.3 10*3/uL Normal 1.4-7.0 [facility]; [facility] Work Phone: Comment on above: PATIENT WAS FASTINGP ERFORMED BY: MENDEZ [facility] Lwptho9602 [address]zo RoadDublin [place] [id number] Platelets (Bld) [#/Vol] 260 10*3/uL Normal 150-379 [facility]; [facility] Work Phone: Comment on above: PATIENT WAS FASTINGP ERFORMED BY: [facility] Bqguyg4663 [address] Roadblin [place] [id number] RBC (Bld) [#/Vol] 5.50 10*6/uL Normal 4.14-5.80 Compr ehensive Internal Medicine; [facility] Work Phone: Comment on above: PATIENT WAS FASTINGP ERFORMED BY: MENDEZ [facility] Coqbhq7144 [address] RoadDublin [place] [id number] WBC (Bld) [#/Vol] 6.0 10*3/uL Normal 3.4-10.8 Compre hensive Internal Medicine; [facility] Work Phone: Comment on above: PATIENT WAS FASTINGP ERFORMED BY: CB [facility] Zfbprg9528 [address] [facility] [place] [id number] LIPID PANEL (67512)on 2016 Cholesterol in HDL mass conc 43 mg/dL Normal [facility] Work Phone: Comment on above: PATIENT WAS FASTINGP ERFORMED BY: CB [facility] Filoow7051 [address] RoadDublin [place] [id number]; non-emergent till apt Cholesterol in LDL mass conc 156 mg/dL Abnormal 0-99 [facility] Work Phone: Comment on above: PATIENT WAS FASTINGP ERFORMED BY: MENDEZ [facility] Xhylwo8192 [address] [facility] [id number]; non-emergent till apt Cholesterol in LDL/Cholesterol in HDL mass ratio 3.6 {ratio_units} Normal 0.0-3.6 [facility] Work Phone: Comment on above: LDL/HDL Ratio Men Wo men 1/2 Avg.Risk 1.0 1.5 Avg.Risk 3.6 3.2 2X Avg.Risk 6.2 5.0 3X Avg.Risk 8.0 6.1 PATIENT WAS FASTINGP ERFORMED BY: MENDEZ Lab[facility] Acobeg27[address] [id number]; non-emergent till apt Cholesterol in VLDL mass conc 29 mg/dL Normal 5-40 [facility] Work Phone: Comment on above: PATIENT WAS FASTINGP ERFORMED BY: MENDEZ [facility] Nqolbf7915 [address] [id number]; non-emergent till apt Cholesterol mass conc 228 mg/dL Abnormal 100-199 [facility] Work Phone: Comment on above: PATIENT WAS FASTINGP ERFORMED BY: MENDEZ [facility] Wlpcvp0636 [address] [id number]; non-emergent till apt Triglyceride mass conc 144 mg/dL Normal 0-149 [facility] Work Phone: Comment on above: PATIENT WAS FASTINGP ERFORMED BY: MENDEZ [facility] Soowgg9422 [address] [id number]; non-emergent till apt METABOLIC PANEL, COMPREHENSI VE (09782)on 03-07-2016 Albumin mass conc 4.5 g/dL Normal 3.5-5.5 Compreh ensive Internal Medicine Work Phone: Comment on above: PATIENT WAS FASTINGP ERFORMED BY: MENDEZ [facility] Pavnws5378 [address] [id number] Albumin/Globulin mass ratio 1.7 {ratio} Normal 1.1-2.5 [facility] Work Phone: Comment on above: PATIENT WAS FASTINGP ERFORMED BY: MENDEZ [facility] Bjaamk3685 [address] RoadDublin [place] [id number] ALP enzyme act/vol 55 [iU]/L Normal 39-117 [facility] Work Phone: Comment on above: PATIENT WAS FASTINGP ERFORMED BY: MENDEZ [facility] Fxjydd6004 [address] RoadDublin [place] [id number] ALT enzyme act/vol 20 [iU]/L Normal 0-44 [facility] Internal Medicine Work Phone: Comment on above: PATIENT WAS FASTINGP ERFORMED BY: MENDEZ [facility] Scswwr8405 [address] RoadDublin [place] [id number] AST enzyme act/vol 19 [iU]/L Normal 0-40 [facility] Internal Medicine Work Phone: Comment on above: PATIENT WAS FASTINGP ERFORMED BY: MENDEZ [facility] Fmagqa0517 [address] RoadDublin [place] [id number] Bilirubin mass conc 0.6 mg/dL Normal 0.0-1.[address] Internal Medicine Work Phone: Comment on above: PATIENT WAS FASTINGP ERFORMED BY: MENDEZ [facility] Hiojyu8581 [address] RoadDublin [place] [id number] Calcium mass conc 9.6 mg/dL Normal 8.7-10.[address] [facility] Work Phone: Comment on above: PATIENT WAS FASTINGP ERFORMED BY: MENDEZ [facility] Pjymom6137 [address] RoadDublin [place] [id number] Chloride molar conc 99 mmol/L Normal 96-106 Compr ensive Internal Medicine Work Phone: Comment on above: PATIENT WAS FASTINGP ERFORMED BY: MENDEZ [facility] Umnnah6257 [address] RoadDublin [place] [id number] CO2 molar conc 24 mmol/L Normal 18-29 Comprehens tyron Internal Medicine Work Phone: Comment on above: PATIENT WAS FASTINGP ERFORMED BY: MENDEZ [facility] Bzlypn9303 [address] RoadDublin [place] [id number] Creatinine mass conc 0.86 mg/dL Normal 0.76-1.27 Comp rehensive Internal Medicine Work Phone: Comment on above: PATIENT WAS FASTINGP ERFORMED BY: MENDEZ [facility] Cgrcft9321 [address] [facility] [id number] GFR/1.73 sq M predicted among blacks CKD-EPI vol rate/area (S/P/Bld) 119 mL/min/1.73 Normal Comprehensiv e Internal Medicine Work Phone: Comment on above: PATIENT WAS FASTINGP ERFORMED BY: [facility] Gflnlq8673 [address] [facility] [id number] GFR/1.73 sq M predicted among non-blacks CKD-EPI vol rate/area (S/P/Bld) 103 mL/min/1.73 Normal [facility] Work Phone: Comment on above: PATIENT WAS FASTINGP ERFORMED BY: MENDEZ [facility] Tpiruc03[address] [id number] Globulin Calculated mass conc (S) 2.6 g/dL Normal 1.5-4.5 [facility] Work Phone: Globulin mass conc (S) 2.6 g/dL Normal 1.5-4.5 [facility] Work Phone: Comment on above: PATIENT WAS FASTINGP ERFORMED BY: MENDEZ [facility] Oodfma77[address] [id number] Glucose mass conc 105 mg/dL Abnormal 65-99 Compreh ensive Internal Medicine Work Phone: Comment on above: PATIENT WAS FASTINGP ERFORMED BY: [facility] Ovjcfh27[address] [id number] Potassium molar conc 4.7 mmol/L Normal 3.5-5.2 Comp rehensive Internal Medicine Work Phone: Comment on above: PATIENT WAS FASTINGP ERFORMED BY: [facility] Bwpjst0693 [address] [id number] Protein mass conc 7.1 g/dL Normal 6.0-8.5 Compreh ensive Internal Medicine Work Phone: Comment on above: PATIENT WAS FASTINGP ERFORMED BY: MENDEZ [facility] Ipeozc7645 [address] RoadDublin [place] [id number] Sodium molar conc 142 mmol/L Normal 134-144 Compreh ensive Internal Medicine Work Phone: Comment on above: PATIENT WAS FASTINGP ERFORMED BY: MENDEZ [facility] Acnysx0749 [address] RoadAtrium Health Wake [facility] Centerin [place] [id number] Urea nitrogen mass conc 13 mg/dL Normal 6-24 [facility] Work Phone: Comment on above: PATIENT WAS FASTINGP ERFORMED BY: MENDEZ [facility] Cswnrs3587 [address] Roadblin [place] [id number] Urea nitrogen/Creatinine mass ratio 15 mg/mg Normal 9-20 [facility] Work Phone: Comment on above: PATIENT WAS FASTINGP ERFORMED BY: MENDEZ [facility] Rnnodk8072 [address] [facility] [id number] METABOLIC PANEL, COMPREHENSI VE ([id number])Ordered By: Manager Talent Management on 03-07-2016 ALP [Catalytic activity/Vol] 55 U/L Normal 39-117 [facility]; [facility] Work Phone: Comment on above: PATIENT WAS FASTINGP ERFORMED BY: MENDEZ LabBrittanyrp Mvfdki5706 [address] [facility] [place] [id number] ALT [Catalytic activity/Vol] 20 U/L Normal 0-44 [facility]; [facility] Work Phone: Comment on above: PATIENT WAS FASTINGP ERFORMED BY: [facility] Tfbswy8912 [address] [facility]in [place] [id number] AST [Catalytic activity/Vol] 19 U/L Normal 0-40 [facility]; [facility] Work Phone: Comment on above: PATIENT WAS FASTINGP ERFORMED BY: MENDEZ [facility] Kmzetg1695 [address] [facility] [place] [id number] MICROALBUMINOrdered By: Syst em Hydraulic Hammer Operator on 03-07-2016 Albumin DL <= 20 mg/L (U) [Mass/Vol] mg/dL Normal Comprehensiv e Internal Medicine; [facility] Work Phone: Comment on above: PATIENT WAS FASTINGP ERFORMED BY: [facility] [id number] MICROALBUMINon 03-07-2016 Albumin DL <= 20 mg/L mass conc (U) mg/dL Normal [facility] Work Phone: Comment on above: PATIENT WAS FASTINGP ERFORMED BY: [facility] [id number] Albumin/Creatinine mass ratio (U) <1.9 Normal 0.0-30.0 [facility] Work Phone: Comment on above: PATIENT WAS FASTINGP ERFORMED BY: [facility] [id number] Creatinine mass conc (U) 156.6 mg/dL Normal [facility] Work Phone: Comment on above: PATIENT WAS FASTINGP ERFORMED BY: [facility]6[address] [id number] Microscopic Examinationon Bacteria LM.HPF #/area (Urine sed) None seen Normal [facility] Work Phone: Comment on above: PATIENT WAS FASTINGP ERFORMED BY: [facility]6[address] [id number] Epithelial cells LM.HPF #/area (Urine sed) None seen Normal 0 - 10 [facility] Work Phone: Comment on above: PATIENT WAS FASTINGP ERFORMED BY: [facility] [place] [id number] Mucus LM Ql (Urine sed) Present Normal [facility] Work Phone: Mucus Ql (Urine sed) Present Normal Comp rehensive Internal Medicine Work Phone: Comment on above: PATIENT WAS FASTINGP ERFORMED BY: [facility] [place] [id number] RBC LM.HPF #/area (Urine sed) 0-2 Normal 0 - 2 [facility] Work Phone: Comment on above: PATIENT WAS FASTINGP ERFORMED BY: MENDEZ LabComelyssa DudleyRxazrz5178 [address] RoadDublin [place] [id number] WBC LM.HPF #/area (Urine sed) 0-5 Normal 0 - 5 [facility] Work Phone: Comment on above: PATIENT WAS FASTINGP ERFORMED BY: MENDEZ LabGabbie DudleyZgrwfn6995 [address]Dublin [place] [id number] URINALYSIS, W/ MICRO ([id number]) on 03-07-2016 Appearance Nom (U) Clear Normal Compre hensive Internal Medicine Work Phone: Comment on above: PATIENT WAS FASTINGP ERFORMED BY: MENDEZ LabGabbie DudleyHionww9631 [address] RoadDublin [place] [id number] Bilirubin Ql (U) Negative Normal Comprehe nsive Internal Medicine Work Phone: Comment on above: PATIENT WAS FASTINGP ERFORMED BY: MENDEZ LabGabbie DudleyByizsz2071 [address] RoadDublin [place] [id number] Color Nom (U) Yellow Normal Comprehensi ve Internal Medicine Work Phone: Comment on above: PATIENT WAS FASTINGP ERFORMED BY: MENDEZ LabGabbie DudleyGlygav1533 [address] RoadDublin [place] [id number] Glucose Ql (U) Negative Normal Comprehens tyron Internal Medicine Work Phone: Comment on above: PATIENT WAS FASTINGP ERFORMED BY: MENDEZ Dudleylin6370 [address] RoadDublin [place] [id number] Hemoglobin Ql (U) Negative Normal Compreh ensive Internal Medicine Work Phone: Comment on above: PATIENT WAS FASTINGP ERFORMED BY: MENDEZ [facility] Fvofjw0457 [address] RoadDublin [place] [id number] Hemoglobin Test strip Ql (U) Negative Normal [facility] Work Phone: Ketones Ql (U) Negative Normal Comprehens tyron Internal Medicine Work Phone: Comment on above: PATIENT WAS FASTINGP ERFORMED BY: MENDEZ LabComelyssa DudleyHfalsm3874 [address] RoadDublin [place] [id number] Leukocyte esterase Test strip Ql (U) Negative Normal [facility] Work Phone: Comment on above: PATIENT WAS FASTINGP ERFORMED BY: MENDEZ Caceres6370 [address] RoadDublin [place] [id number] Microscopic observation LM Nom (Urine sed) See below: Normal [facility] Work Phone: Comment on above: Microscopic was giovanni cated and was performed. PATIENT WAS FASTINGP ERFORMED BY: MENDEZ Caceres6370 [address] RoadDublin [place] [id number] Microscopic observation LM Nom (Urine sed) MICRON Normal [facility] Work Phone: Comment on above: Microscopic follows if indicated. PATIENT WAS FASTINGP ERFORMED BY: MENDEZ Caceres6370 [address] RoadDublin [place] [id number] Nitrite Ql (U) Negative Normal Comprehens tyron Internal Medicine Work Phone: Comment on above: PATIENT WAS FASTINGP ERFORMED BY: MENDEZ Caceres6370 [address] RoadDublin [place] [id number] Nitrite Test strip Ql (U) Negative Normal [facility] Work Phone: pH (U) 6.0 [pH] Normal 5.0-7.5 [facility] Work Phone: Comment on above: PATIENT WAS FASTINGP ERFORMED BY: MENDEZ Caceres6370 [address]Dublin [place] [id number] pH Test strip (U) 6.0 [pH] Normal 5.0-7.5 Compreh ensive Internal Medicine Work Phone: Protein Ql (U) Negative Normal Comprehens tyron Internal Medicine Work Phone: Comment on above: PATIENT WAS FASTINGP ERFORMED BY: MENDEZ LabGabbie DudleyOkbtfj3938 [address] RoadDublin [place] [id number] Protein Test strip Ql (U) Negative Normal [facility] Work Phone: Specific gravity Relative Density (U) 1.021 1 Normal 1.005-1.03 0 [facility] Work Phone: Comment on above: PATIENT WAS FASTINGP ERFORMED BY: MENDEZ Dudleylin6370 [address] [facility]in [place] [id number] Urobilinogen Test strip mass conc (U) 0.2 mg/dL Normal 0.2-1.0 Comprehensiv e Internal Medicine Work Phone: Comment on above: PATIENT WAS FASTINGP ERFORMED BY: MENDEZ CaroleGabbie DudleyWzjdox5072 [address] [facility] [id number] URINALYSIS, W/ MICRO ([id number]) Ordered By: Manager Talent Management on 03-07-2016 Bilirubin Ql (U) Negative Normal Comprehe nsive Internal Medicine; [facility] Work Phone: Comment on above: PATIENT WAS FASTINGP ERFORMED BY: MENDEZ Dudleylin6[address] [facility] [id number] Glucose Ql (U) Negative Normal Comprehens tyron Internal Medicine; [facility] Work Phone: Comment on above: PATIENT WAS FASTINGP ERFORMED BY: MENDEZ Dudleylin6[address] [facility] [id number] Hemoglobin Ql (U) Negative Normal Compreh ensive Internal Medicine; [facility] Work Phone: Comment on above: PATIENT WAS FASTINGP ERFORMED BY: MENDEZ Dudleylin6[address] [facility] [id number] Ketones Ql (U) Negative Normal Comprehens tyron Internal Medicine; [facility] Work Phone: Comment on above: PATIENT WAS FASTINGP ERFORMED BY: MENDEZ Dudleylin6[address] [facility] [id number] Leukocyte esterase Test strip Ql (U) Negative Normal [facility]; [facility] Work Phone: Comment on above: PATIENT WAS FASTINGP ERFORMED BY: MENDEZ Dudleylin6[address] [facility] [id number] Nitrite Ql (U) Negative Normal Comprehens tyron Internal Medicine; [facility] Work Phone: Comment on above: PATIENT WAS FASTINGP ERFORMED BY: MENDEZ Dudleylin6[address] [facility] [id number] Protein Ql (U) Negative Normal Comprehens tyron Internal Medicine; [facility] Work Phone: Comment on above: PATIENT WAS FASTINGP ERFORMED BY: CB [facility] Wcxmul1819 [address] Roadblin [place] [id number] Urobilinogen (U) [Mass/Vol] 0.2 mg/dL Normal 0.2-1.0 [facility]; [facility] Work Phone: Comment on above: PATIENT WAS FASTINGP ERFORMED BY: CB [facility] Brplmd6585 [address] [facility] [id number] HgA1C , Office ([id number])Ordere d By: Marva Wang on 12-14-2015 Hemoglobin A1c/Hemoglobin.total mass fraction (Bld) 6.1 % Normal 4.6 - 7.1 Comprehensiv e Internal Medicine Work Phone: HEPATIC FUNCTION PANEL (8001 6)on 11-30-2015 Albumin mass conc 4.5 g/dL Normal 3.5-5.5 Compreh [facility] Internal Medicine Work Phone: Comment on above: PATIENT WAS FASTINGP ERFORMED BY: CB [facility] Othiww2828 [address] [facility] [id number] ALP enzyme act/vol 54 [iU]/L Normal 39-117 [facility] Internal Medicine Work Phone: Comment on above: PATIENT WAS FASTINGP ERFORMED BY: CB [facility] Ihuluq9363 [address] [facility] [id number] ALT enzyme act/vol 25 [iU]/L Normal 0-44 [facility] Internal Medicine Work Phone: Comment on above: PATIENT WAS FASTINGP ERFORMED BY: CB [facility] Cvjavf9840 [address] RoadDublin [place] [id number] AST enzyme act/vol 21 [iU]/L Normal 0-40 [facility] Internal Medicine Work Phone: Comment on above: PATIENT WAS FASTINGP ERFORMED BY: CB [facility] Tuaghu7212 [address]zo RoadDuAtrium Health Union [id number] Bilirubin mass conc 0.4 mg/dL Normal 0.0-1.2 Compr [facility]had[facility] Internal Medicine Work Phone: Comment on above: PATIENT WAS FASTINGP ERFORMED BY: MENDEZ LabComelyssa Zmimee1647 [address]zo RoadAtrium Health [facility] Centerin [place] [id number] Bilirubin.direct mass conc 0.14 mg/dL Normal 0.00-0.40 [facility] Work Phone: Comment on above: PATIENT WAS FASTINGP ERFORMED BY: CB [facility] Eirzkw8738 [address] Roadblin [place] [id number] Protein mass conc 7.3 g/dL Normal 6.0-8.5 Compreh [facility] Internal Medicine Work Phone: Comment on above: PATIENT WAS FASTINGP ERFORMED BY: MENDEZ [facility] Zymrrb1651 Alonzo RoadAtrium Health [id number] HEPATIC FUNCTION PANEL (8000 6)Ordered By: Manager Talent Management on 11-30-2015 ALP [Catalytic activity/Vol] 54 U/L Normal 39-117 [facility]; [facility] Work Phone: Comment on above: PATIENT WAS FASTINGP ERFORMED BY: MENDEZ [facility] Ddznaf6855 [address]zo RoadAtrium Health [facility] Centerin [place] [id number] ALT [Catalytic activity/Vol] 25 U/L Normal 0-44 [facility]; [facility] Work Phone: Comment on above: PATIENT WAS FASTINGP ERFORMED BY: MENDEZ [facility] Aetbdo6664 [address] People Operating TechnologyAtrium Health [id number] AST [Catalytic activity/Vol] 21 U/L Normal 0-40 [facility]; [facility] Work Phone: Comment on above: PATIENT WAS FASTINGP ERFORMED BY: CB [facility] Omyubo8265 [address] RoadDuin [place] [id number] LIPID PANEL (66102)on 2015 Cholesterol in HDL mass conc 34 mg/dL Abnormal [facility] Work Phone: Comment on above: According to ATP-III Guidelines, HDL-C >59 mg/dL is considered anegative risk factor for CHD. PATIENT WAS FASTINGP ERFORMED BY: CB [facility] Fhhloa[address] [id number] Cholesterol in LDL mass conc 139 mg/dL Abnormal 0-99 [facility] Work Phone: Comment on above: PATIENT WAS FASTINGP ERFORMED BY: [facility] [id number] Cholesterol in LDL/Cholesterol in HDL mass ratio 4.1 {ratio_units} Abnormal 0.0-3.6 [facility] Work Phone: Comment on above: LDL/HDL Ratio Men Wo men 1/2 Avg.Risk 1.0 1.5 Avg.Risk 3.6 3.2 2X Avg.Risk 6.2 5.0 3X Avg.Risk 8.0 6.1 PATIENT WAS FASTINGP ERFORMED BY: [place] [id number] [id number] Cholesterol in VLDL mass conc 41 mg/dL Abnormal 5-40 [facility] Work Phone: Comment on above: PATIENT WAS FASTINGP ERFORMED BY: [place] 9213970 [address] [id number] Cholesterol mass conc 214 mg/dL Abnormal 100-199 [facility] Work Phone: Comment on above: PATIENT WAS FASTINGP ERFORMED BY: [place] 9213970 [address] [id number] Triglyceride mass conc 204 mg/dL Abnormal 0-149 [facility] Work Phone: Comment on above: PATIENT WAS FASTINGP ERFORMED BY: [place] 9213970 [address] [id number] PSA (PROSTATE SPECIFIC ANTIG EN) (V76.44)on 11-30-2015 Prostate specific Ag mass conc 0.4 ng/mL Normal 0.0-4.0 [facility] Work Phone: Comment on above: Bradly ECLIA methodol ogy. .According to the [place] [employer], Serum PSA shoulddecrease and remain at undetectable levels after radicalprostatectomy. The AUA defines biochemical recurrence as an initialPSA value 0.2 ng/mL or greater followed by a subsequent confirmatoryPSA value 0.2 ng/mL or greater.Values obtained with different assay methods or kits cannot be usedinterchangeably. Results cannot be interpreted as absolute evidenceof the presence or absence of malignant disease. PATIENT WAS FASTINGP ERFORMED BY: Siteheart6370 [employer] [id number] CALCIFEDIOL (40966)on 2015 25-Hydroxyvitamin D2+25-Hydroxyvitamin D3 mass conc 27.8 ng/mL Abnormal 30.0-100.0 [facility] Work Phone: Comment on above: Vitamin D deficiency has been defined by the [place] ofTri[facility] Hospitalcine and an Endocrine Society practice guideline as alevel of serum 25-OH vitamin D less than 20 ng/mL (1,2).The Endocrine Society went on to further define vitamin Dinsufficiency as a level between 21 and 29 ng/mL (2).1. IOM ([place] of Medicine). 2010. Dietary reference intakes for calcium and D. [place]: The National Academies Press.2. Magno MF, Do MILES, Jos PRATER, et al. Evaluation, treatment, and prevention of vitamin D deficiency: an Endocrine Society clinical practice guideline. JCEM. 2010; 96(7):1911-30. PATIENT WAS FASTINGP ERFORMED BY: Siteheart6370 [address] PostAtrium Health Union [id number] LIPID PANEL (40994)on 2015 Cholesterol in HDL mass conc 43 mg/dL Normal [facility] Work Phone: Comment on above: According to ATP-III Guidelines, HDL-C >59 mg/dL is considered anegative risk factor for CHD. PATIENT WAS FASTINGP ERFORMED BY: Siteheart6370 [address] PostAtrium Health Union [id number] Cholesterol in LDL mass conc 166 mg/dL Abnormal 0-99 [facility] Work Phone: Comment on above: PATIENT WAS FASTINGP ERFORMED BY: Siteheart6370 Alonzoprofectus health researchAtrium Health [id number] Cholesterol in LDL/Cholesterol in HDL mass ratio 3.9 {ratio_units} Abnormal 0.0-3.6 [facility] Work Phone: Comment on above: LDL/HDL Ratio Men Wo men 1/2 Avg.Risk 1.0 1.5 Avg.Risk 3.6 3.2 2X Avg.Risk 6.2 5.0 3X Avg.Risk 8.0 6.1 PATIENT WAS FASTINGP ERFORMED BY: MENDEZ [facility] Wamlvy8550 [address] [facility] [place] [id number] Cholesterol in VLDL mass conc 35 mg/dL Normal 5-40 [facility] Work Phone: Comment on above: PATIENT WAS FASTINGP ERFORMED BY: MENDEZ [facility] Xiuwxq5043 [address] [facility] [id number] Cholesterol mass conc 244 mg/dL Abnormal 100-199 [facility] Work Phone: Comment on above: PATIENT WAS FASTINGP ERFORMED BY: MENDEZ [facility] Oddjrf9742 [address] [id number] Triglyceride mass conc 174 mg/dL Abnormal 0-149 [facility] Work Phone: Comment on above: PATIENT WAS FASTINGP ERFORMED BY: MENDEZ [facility] Dbrwjk5713 [address] [id number] METABOLIC PANEL, COMPREHENSI VE (23151)on 09-14-2015 Albumin mass conc 4.7 g/dL Normal 3.5-5.5 Compreh ensive Internal Medicine Work Phone: Comment on above: PATIENT WAS FASTINGP ERFORMED BY: MENDEZ [facility] Weavcz7[address] [id number] Information: [id number] Albumin/Globulin mass ratio 1.5 {ratio} Normal 1.1-2.5 [facility] Work Phone: Comment on above: PATIENT WAS FASTINGP ERFORMED BY: MENDEZ [facility] Byrgay6052 [address] [id number] Information: [id number] ALP enzyme act/vol 66 [iU]/L Normal 39-117 Compre hensive Internal Medicine Work Phone: Comment on above: PATIENT WAS FASTINGP ERFORMED BY: [facility] Kvckei4086 [address] RoadDublin [place] [id number] Information: [id number] ALT enzyme act/vol 153 [iU]/L Abnormal [facility]44 [facility] Internal [facility] Work Phone: Comment on above: PATIENT WAS FASTINGP ERFORMED BY: [facility] Htsyql040[address]blin [place] [id number] Information: [id number] AST enzyme act/vol 87 [iU]/L Abnormal 0-40 [facility] Internal Medicine Work Phone: Comment on above: PATIENT WAS FASTINGP ERFORMED BY: [facility] Ldnecl5101 Alonzo RoadAtrium Health [facility] Centerin [place] [id number] Information: [id number] Bilirubin mass conc 0.9 mg/dL Normal 0.0-1.[address] [facility] Internal Medicine Work Phone: Comment on above: PATIENT WAS FASTINGP ERFORMED BY: [facility] Xagxug7671 Alonzo [facility] [place] [id number] Information: [id number] Calcium mass conc 9.6 mg/dL Normal 8.7-10.2 Compreh [facility] Internal Medicine Work Phone: Comment on above: PATIENT WAS FASTINGP ERFORMED BY: [facility] Tuveld2378 Alonzo [facility] [id number] Information: [id number] Chloride molar conc 96 mmol/L Abnormal 97-[address] [facility] Internal Medicine Work Phone: Comment on above: PATIENT WAS FASTINGP ERFORMED BY: [facility] Kzjhts[address] [place] [id number] Information: [id number] CO2 molar conc 19 mmol/L Normal 18-29 [facility] Internal [facility] Work Phone: Comment on above: PATIENT WAS FASTINGP ERFORMED BY: [facility] Ifomgz3116 Alonzo RoadAtrium Health [facility] Centerin [place] [id number] Information: [id number] Creatinine mass conc 0.78 mg/dL Normal 0.76-1.27 Comp rehensive Internal Medicine Work Phone: Comment on above: PATIENT WAS FASTINGP ERFORMED BY: [place] [id number] [facility] [id number] Information: [id number] GFR/1.73 sq M predicted among blacks CKD-EPI vol rate/area (S/P/Bld) 124 mL/min/1.73 Normal Comprehensiv e Internal Medicine Work Phone: Comment on above: PATIENT WAS FASTINGP ERFORMED BY: [address] [id number] Information: [id number] GFR/1.73 sq M predicted among non-blacks CKD-EPI vol rate/area (S/P/Bld) 107 mL/min/1.73 Normal [facility] Work Phone: Comment on above: PATIENT WAS FASTINGP ERFORMED BY: [address] [id number] Information: [id number] Globulin Calculated mass conc (S) 3.2 g/dL Normal 1.5-4.5 [facility] Work Phone: Globulin mass conc (S) 3.2 g/dL Normal 1.5-4.5 [facility] Work Phone: Comment on above: PATIENT WAS FASTINGP ERFORMED BY: [place] [id number] [facility] [id number] Information: [id number] Glucose mass conc 134 mg/dL Abnormal 65-99 Compreh ensive Internal Medicine Work Phone: Comment on above: PATIENT WAS FASTINGP ERFORMED BY: [address] [id number] Information: [id number] Potassium molar conc 4.4 mmol/L Normal 3.5-5.2 Comp rehensive Internal Medicine Work Phone: Comment on above: PATIENT WAS FASTINGP ERFORMED BY: MENDEZ [facility] Oonort1119 Al[address] [facility] [id number] Information: [id number] Protein mass conc 7.9 g/dL Normal 6.0-8.5 Compreh ensive Internal Medicine Work Phone: Comment on above: PATIENT WAS FASTINGP ERFORMED BY: [facility] Ezjijv6925 [facility] [id number] Information: [id number] Sodium molar conc 138 mmol/L Normal 134-144 Compreh ensive Internal Medicine Work Phone: Comment on above: PATIENT WAS FASTINGP ERFORMED BY: [facility] Wphqdw7547 [facility] [id number] Information: [id number] Urea nitrogen mass conc 13 mg/dL Normal 6-24 [facility] Work Phone: Comment on above: PATIENT WAS FASTINGP ERFORMED BY: [facility] Xegdom7849 [facility] [id number] Information: [id number] Urea nitrogen/Creatinine mass ratio 17 mg/mg Normal 9-20 [facility] Work Phone: Comment on above: PATIENT WAS FASTINGP ERFORMED BY: MENDEZ [facility]Co Mqsnsz5418 [facility] [id number] Information: [id number] METABOLIC PANEL, COMPREHENSI VE ([id number])Ordered By: Manager [employer] on 09-14-2015 ALP [Catalytic activity/Vol] 66 U/L Normal 39-117 [facility]; [facility] Work Phone: Comment on above: PATIENT WAS FASTINGP ERFORMED BY: [facility] Vvqsnk1580 [facility] [place] [id number] Information: [id number] ALT [Catalytic activity/Vol] 153 U/L Abnormal 0-44 [facility]; [facility] Work Phone: Comment on above: PATIENT WAS FASTINGP ERFORMED BY: [facility]The [facility] Hospital [facility] T[facility] FallsHvalmq6730 [facility] [id number] Information: [id number] AST [Catalytic activity/Vol] 87 U/L Abnormal 0-40 [facility]; [facility] Work Phone: Comment on above: PATIENT WAS FASTINGP ERFORMED BY: [facility] [facility] [id number] Information: [id number] MICROALBUMINon 09-14-2015 Albumin DL <= 20 mg/L mass conc (U) 5.7 ug/mL Normal [facility] Work Phone: Comment on above: PATIENT WAS FASTINGP ERFORMED BY: [facility] [place] [facility] [id number] Albumin/Creatinine mass ratio (U) 3.9 {mg/g_creat} Normal 0.0-30.0 [facility] Work Phone: Comment on above: PATIENT WAS FASTINGP ERFORMED BY: [facility] [facility] [id number] Creatinine mass conc (U) 146.9 mg/dL Normal [facility] Work Phone: Comment on above: PATIENT WAS FASTINGP ERFORMED BY: [facility] [facility] [id number] TSH (THYROID STIMULATING HOR BRYN) ([id number])on 09-14-2015 Thyrotropin Qn 1.770 {uIU/mL} Normal 0.450-4.50 0 [facility] Work Phone: Comment on above: PATIENT WAS FASTINGP ERFORMED BY: [facility] [facility] [id number] Basic Metabolic Profile (BMP )on 09-08-2015 Basic metabolic 2000 panel 100 mmol/L Normal 98-107 [facility] Work Phone: Comment on above: [facility] [address] [place], [address] Basic metabolic 2000 panel 82 mL/min Normal [facility] Medicine Work Phone: Comment on above: GFR Calc [facility] [address] [place], [place], [id number] Basic metabolic 2000 panel 68 mL/min Normal [facility] Medicine Work Phone: Comment on above: Non- GFR Calc [facility] Ofw[address] [place], [place], [phone] Basic metabolic 2000 panel 1.22 mg/dL Normal 0.70-1.30 [facility] Work Phone: Comment on above: The validity of the calculated GFR AND GFRAA in patients over70 years has not been determined. Clinical correlation isessential. [facility] [address] [place], [place], [address] Basic metabolic 2000 panel 74.85 ml/min Normal [facility] Work Phone: Comment on above: [facility] [address] [place], [place], [address]677[address] Basic metabolic 2000 panel 15 mg/dL Normal 7-18 [facility] Work Phone: Comment on above: [facility] [address] [place], [address] Basic metabolic 2000 panel 4.1 mmol/L Normal 3.5-5.1 [facility] Work Phone: Comment on above: Moderate Hemolysis, Result may be falsely increased. [facility] [address] [place], [place], [phone] Basic metabolic 2000 panel 242 mg/dL Abnormal 70-110 [facility] Work Phone: Comment on above: Glucose result great er than or equal to 200 mg/dLsuggests DIABETES MELLITUS per A.D.A. criteria. [facility] [address] [place], [place], [phone] Basic metabolic 2000 panel 134 mmol/L Abnormal 136-145 [facility] Work Phone: Comment on above: [facility] [address] [place], [place], [phone] Basic metabolic 2000 panel 9.0 mg/dL Normal 8.5-10.1 [facility] Work Phone: Comment on above: [facility] [address] [place], [place], [address] Basic metabolic 2000 panel 7 1 Normal 5-15 [facility] Work Phone: Comment on above: [facility] [address] [place], [place], [phone] Basic metabolic 2000 panel 12.3 {RATIO} Normal 10-20 [facility] Work Phone: Comment on above: [facility] [address] [place], [place], [phone] Basic metabolic 2000 panel 27.0 mmol/L Normal 21.0-32.0 [facility] Work Phone: Comment on above: [facility] [address] [place], [place], [phone] Bedside Glucoseon 09-08-2015 Bedside Glucose 214 mg/dL Abnormal 70-110 [facility]hen [facility] Internal [facility] Work Phone: Comment on above: MANAGEMENT OF PATIEN T CARE PER NURSING PROTOCOL [facility] LaboratoryPoint of [address] [place] [address] CBC W/Diff, Automatedon - Absolute Neut 3.0 {X10_3/uL} Normal 2.0-7.7 Compreh ensive Internal Medicine Work Phone: Comment on above: [facility] [address] [place], [place], [address] Basophils/100 WBC (Bld) 0.2 % Normal 0-1 [facility] Work Phone: Comment on above: [facility] [address] [place], [address] Basophils/100 WBC Auto (Bld) 0.2 % Normal 0-1 [facility] Work Phone: Eosinophils/100 WBC (Bld) 1.9 % Normal 0-5 [facility] Work Phone: Comment on above: [facility] [address] [place], [address] Eosinophils/100 WBC Auto (Bld) 1.9 % Normal 0-5 [facility] Work Phone: Erythrocyte distribution width Auto Ratio (RBC) 13.2 % Normal 11.6-14.6 [facility] Work Phone: Erythrocyte distribution width Ratio (RBC) 13.2 % Normal 11.6-14.6 [facility] Work Phone: Comment on above: [place] [address] [place], [place], [address] Hematocrit Auto Volume Fraction (Bld) 46.3 % Normal 40-54 [facility] Work Phone: Hematocrit Volume Fraction (Bld) 46.3 % Normal 40-54 [facility] Work Phone: Comment on above: [facility] [address] [place], [place], [phone] Hemoglobin mass conc (Bld) 16.3 g/dL Normal 13.0-16.5 [facility] Work Phone: Comment on above: [facility] [address] [place], [place], [phone](258 IM GRAN % 0.200 % Normal 0.0-0.9 [facility] Work Phone: Comment on above: IG% - Immature Granu locytes (promyelocytes, myelocytes andmetamyelocytes) > 1% indicates that a LEFT SHIFT is Present. [facility] [address] [place], [address] Lymphocytes #/vol (Bld) 2.65 {X10_3/ul} Normal 0.83-4.51 [facility] Work Phone: Comment on above: [facility] [address] [place], [address] Lymphocytes/100 WBC (Bld) 43.0 % Abnormal 19-41 [facility] Work Phone: Comment on above: [facility] [address] [place], [address] Lymphocytes/100 WBC Auto (Bld) 43.0 % Abnormal 19-41 [facility] Work Phone: MCH Auto Entitic mass (RBC) 28.7 pg Normal 27.0-32.0 [facility] Work Phone: MCH Entitic mass (RBC) 28.7 pg Normal 27.0-32.0 [facility] Work Phone: Comment on above: [facility] [address] [place], [address] MCHC Auto mass conc (RBC) 35.2 {g/gl} Normal 32-36 [facility] Work Phone: MCHC mass conc (RBC) 35.2 {g/gl} Normal 32-36 [facility] prehensive Internal Medicine Work Phone: Comment on above: [facility] [address] [place], [address] MCV Auto Entitic volume (RBC) 81.7 fL Normal 80-94 [facility] Work Phone: MCV Entitic volume (RBC) 81.7 fL Normal 80-94 [facility] Work Phone: Comment on above: [facility] [address] [place], [address] Monocytes/100 WBC (Bld) 6.2 % Normal 0-10 [facility] Work Phone: Comment on above: [facility] [address] [place], [address] Monocytes/100 WBC Auto (Bld) 6.2 % Normal 0-10 [facility] Work Phone: Neutrophils/100 WBC (Bld) 48.5 % Normal 47-70 [facility] Work Phone: Comment on above: [facility] [address] [place], [address] Neutrophils/100 WBC Auto (Bld) 48.5 % Normal 47-70 [facility] Work Phone: Platelet mean volume Auto Entitic volume (Bld) 10.2 fL Normal 6.2-12.0 [facility] Work Phone: Platelet mean volume Entitic volume (Bld) 10.2 fL Normal 6.2-12.0 Comprehensi Internal Medicine Work Phone: Comment on above: [facility] [address] [place], [address] Platelets #/vol (Bld) 222 10*3/uL Normal 150-450 [facility] Work Phone: Comment on above: [facility] [address] [place], [address] Platelets Auto #/vol (Bld) 222 10*3/uL Normal 150-450 [facility] Work Phone: RBC #/vol (Bld) 5.67 {M/mm3} Normal 4.6-6.2 Compreh ensive Internal Medicine Work Phone: Comment on above: [facility] [address] [place], [address] RBC Auto #/vol (Bld) 5.67 {M/mm3} Normal 4.6-6.2 Co mprehensive Internal Medicine Work Phone: RDW SD 39.4 fL Normal 35.1-43.9 [facility] Work Phone: Comment on above: [facility] [address] [place], [place], [phone] WBC #/vol (Bld) 6.2 10*3/uL Normal 4.4-11.0 Comprehe nsive Internal Medicine Work Phone: Comment on above: [facility] [address] [place], [address] WBC Auto #/vol (Bld) 6.2 10*3/uL Normal 4.4-11.0 Com prehensive Internal Medicine Work Phone: CBC W/Diff, Automated 39.4 fL Normal 35.1-43.9 [facility] Work Phone: CBC W/Diff, Automated 3.0 {X10_3/uL} Normal 2.0-7.7 [facility] Work Phone: CBC W/Diff, Automated 2.65 {X10_3/ul} Normal 0.83-4.51 [facility] Work Phone: CBC W/Diff, Automated 0.200 % Normal 0.0-0.9 [facility] Work Phone: Comment on above: IG% - Immature Granu locytes (promyelocytes, myelocytes andmetamyelocytes) > 1% indicates that a LEFT SHIFT is Present. Hemoglobin A1con 09-08-2015 Hemoglobin A1c/Hemoglobin.total mass fraction (Bld) 11.5 % Abnormal 4.2-6.3 Comprehensiv e Internal Medicine Work Phone: Comment on above: [facility] [address] [place], [address] GAVIN DIR SEMI-QLon 02-10-2010 GAVIN DIR SEMI-QL 28 AU/mL Normal Comprehen sive Internal Medicine Work Phone: ANKLE,MIN 3 VIEWSon 02-11-20 10 ANKLE,MIN 3 VIEWS See Note Normal Compreh ensive Internal Medicine Work Phone: Comment on above: CLINICAL:Male, 44 ye ars old. Arthralgia X-RAY EXAMINATION: RIGHT ANKLE TECHNIQUE:Three views of the ankle. COMPARISON:None. FINDINGS: Normal visualized distal tibia and medial malleolus. Normal visualizeddistal fibula and lateral malleolus. Normal tibiotalar articulation and ankle mortise. Normal visualized talus. Normal visualized calcaneus. There is aplantarcalcaneal spur. The visualized subtalar, talonavicular, calcaneocuboid and tarsalarticulations are normal. IMPRESSION:Degenerative changes of the ankle. Dictated on 02/10/101724 by Meagan Westscribed on 02/10/101724 by Tomi GONZALEZ by Ney West on 02/11/102156 Sign by: Ney West CLINICAL:44-year-old male with arthralgia X-RAY EXAMINATION: LEFT WRIST TECHNIQUE:Three views of the wrist. COMPARISON:None. FINDINGS:Normal visualized distal radius and ulna. Normal carpal bones. Normal visualized metacarpal bones. Normal distal radioulnar articulation. Normal radiocarpal articulation. Normal carpal articulations. Normal carpometacarpal articulation of the thumb. Normal second throughfifth carpometacarpal articulations. There is no demonstrated soft tissue swelling. IMPRESSION:Normal x-ray examination of the wrist. Dictated on 02/10/101724 by Shaquille AlvaradoTranscribed on 02/10/101724 by Tomi GONZALEZ by Shaquille Alvarado on 02/11/102156 Sign by: Shaquille Alvarado CLINICAL:44-year-old male with arthralgia X-RAY EXAMINATION: RIGHT SHOULDER TECHNIQUE:Four views of the shoulder. COMPARISON:None. FINDINGS:Normal glenohumeral articulation. Normal acromioclavicular joint. Normal acromion. Normal humeral head and visualized proximal humerus except for smallcysticchanges in the greater tuberosity. There is no demonstrated soft tissue abnormality. Normal visualized pulmonary apex. IMPRESSION:Normal x-ray examination of the shoulder. Dictated on 02/10/101724 by Shaquille AlvaradoTranscribed on 02/10/101724 by Tomi GONZALEZ Javier on 02/11/102156 Sign by: Shaquille Alvarado Result: NORM C+C Result: ADEQUATE ANTI-CCP [id number] 02-10-2010 ANTI-CCP 400413 2 {units} Normal 0-19 [facility] Internal Medicine Work Phone: Comment on above: Negative <20 Weak po sitive 20 - 39 Moderate positive 40 - 59 Strong positive >59Performed at: - [facility] [id number] Director: Barak Hill MD, Phone: [phone] C-REACTIVE PROTon 02-10-2010 CRP mass conc mg/L Normal 0.0-3.0 [facility] Work Phone: Comment on above: C-Reactive Protein ( CRP) provides useful information for thediagnosis, therapy and monitoring of inflammatory processesand associated diseases. For the evaluation of Relative Riskfor Cardiovascular Disease, a High Sensitivity CRP (HSCRP)should be ordered. CBCD,SMEAR DIFFon 02-10-2010 Eosinophils/100 WBC (Bld) 4 % Normal 0-5 [facility] Work Phone: Eosinophils/100 WBC Auto (Bld) 4 % Normal 0-5 [facility] Internal Medicine Work Phone: Erythrocyte distribution width Auto Ratio (RBC) 13.8 % Normal 11.6-14.6 [facility] Internal Medicine Work Phone: Erythrocyte distribution width Ratio (RBC) 13.8 % Normal 11.6-14.6 [facility] Internal Medicine Work Phone: Hematocrit Auto Volume Fraction (Bld) 44.1 % Normal 40-54 [facility] Internal Medicine Work Phone: Hematocrit Volume Fraction (Bld) 44.1 % Normal 40-54 [facility] Internal Medicine Work Phone: Hemoglobin mass conc (Bld) 15.4 g/dL Normal 14.0-18.0 [facility] Internal Medicine Work Phone: Lymphocytes/100 WBC (Bld) 24 % Normal 19-41 [facility] Internal Medicine Work Phone: Lymphocytes/100 WBC Auto (Bld) 24 % Normal 19-41 [facility] Work Phone: MCH Auto Entitic mass (RBC) 28.6 pg Normal 27.0-32.0 [facility] Work Phone: MCH Entitic mass (RBC) 28.6 pg Normal 27.0-32.0 [facility] Work Phone: MCHC Auto mass conc (RBC) 34.9 g/dL Normal 32-36 [facility] Work Phone: MCHC mass conc (RBC) 34.9 g/dL Normal 32-36 Comp rehensive Internal Medicine Work Phone: MCV Auto Entitic volume (RBC) 82.1 fL Normal 80-94 [facility] Work Phone: MCV Entitic volume (RBC) 82.1 fL Normal 80-94 [facility] Work Phone: Monocytes/100 WBC (Bld) 2 % Normal 0-10 [facility] Work Phone: Monocytes/100 WBC Auto (Bld) 2 % Normal 0-10 [facility] Work Phone: Neutrophils #/vol (Bld) 4.0 3/uL Normal 2.0-7.7 [facility] Work Phone: Neutrophils Auto #/vol (Bld) 4.0 3/uL Normal 2.0-7.7 [facility] Work Phone: Platelets #/vol (Bld) 273 10*3/uL Normal 150-450 [facility] Work Phone: Platelets #/vol (Bld) SeeNote Normal [facility] Work Phone: Comment on above: Result: ADEQUATE Platelets Auto #/vol (Bld) 273 10*3/uL Normal 150-450 [facility] Work Phone: RBC #/vol (Bld) 5.37 {M/mm3} Normal 4.6-6.2 Compreh ensive Internal Medicine Work Phone: RBC Auto #/vol (Bld) 5.37 {M/mm3} Normal 4.6-6.2 Co mprehensive Internal Medicine Work Phone: WBC #/vol (Bld) 7.0 10*3/uL Normal 4.4-11.0 [facility] Work Phone: WBC Auto #/vol (Bld) 7.0 10*3/uL Normal 4.4-11.0 Com prehensive Internal Medicine Work Phone: CBCD,SMEAR DIFF 100 1 Normal [facility] Internal Medicine Work Phone: CBCD,SMEAR DIFF 70 % Normal 47-70 [facility] Internal Medicine Work Phone: COMP METABOLICon 02-10-2010 Albumin mass conc 4.2 g/dL Normal 3.4-5.0 Compreh [facility] Internal Medicine Work Phone: Albumin/Globulin mass ratio 1.1 {RATIO} Normal 0.9-2.4 [facility] Internal Medicine Work Phone: ALP enzyme act/vol 71 U/L Normal 50-136 [facility] Internal Medicine Work Phone: ALT enzyme act/vol 82 U/L Abnormal 12-78 [facility] Internal Medicine Work Phone: Anion gap 3 molar conc 10 mmol/L Normal 5-15 [facility] Internal Medicine Work Phone: Anion gap molar conc 10 mmol/L Normal 5-15 [facility] Internal Medicine Work Phone: AST enzyme act/vol 33 U/L Normal 15-37 [facility] Internal Medicine Work Phone: Bilirubin mass conc 0.70 mg/dL Normal 0.00-1.00 [facility] Internal Medicine Work Phone: Calcium mass conc 9.2 mg/dL Normal 8.5-10.1 [facility] Internal Medicine Work Phone: Chloride molar conc 103 mmol/L Normal 98-107 [facility] Internal Medicine Work Phone: CO2 molar conc 27.0 mmol/L Normal 21.0-32.0 Comprehen sive Internal Medicine Work Phone: Creatinine mass conc 0.8 mg/dL Normal 0.8-1.3 Comp rehensive Internal Medicine Work Phone: GFR/1.73 sq M predicted among blacks MDRD vol rate/area (S/P/Bld) 137 mL/min/{1.73_m2} Normal Compreh ensive Internal Medicine Work Phone: GFR/1.73 sq M.predicted MDRD (S/P/Bld) [Vol rate/Area] 113 mL/min/{1.73_m2} Normal Comprehensi ve Internal Medicine Work Phone: GFR/1.73 sq M.predicted MDRD vol rate/area 113 mL/min/{1.73_m2} Normal Comprehensi ve Internal Medicine Work Phone: Globulin Calculated mass conc (S) 3.7 g/dL Normal 2.7-4.2 [facility] Work Phone: Globulin mass conc (S) 3.7 g/dL Normal 2.7-4.2 [facility] Work Phone: Glucose mass conc 95 mg/dL Normal 70-110 Compreh ensive Internal Medicine Work Phone: Potassium molar conc 4.5 mmol/L Normal 3.5-5.1 Comp rehensive Internal Medicine Work Phone: Protein mass conc 7.9 g/dL Normal 6.4-8.2 Compreh ensive Internal Medicine Work Phone: Sodium molar conc 140 mmol/L Normal 136-145 Compreh ensive Internal Medicine Work Phone: Urea nitrogen mass conc 14 mg/dL Normal 7-18 [facility] Work Phone: Urea nitrogen/Creatinine mass ratio 17.5 {RATIO} Normal 10-20 [facility] Work Phone: ESRon 02-10-2010 ESR Velocity (Bld) 4 mm/h Normal 0-15 Compre hensive Internal Medicine Work Phone: RHEUMATOID FACon 02-10-2010 Rheumatoid factor Qn [IU]/mL Normal Comp rehensive Internal Medicine Work Phone: TSHon 02-10-2010 Thyrotropin Qn 1.63 {uIU/mL} Normal 0.358-3.74 Compreh ensive Internal Medicine Work Phone: Vital Signs Date Time Vital Sign Value Performing Clinician Facility 10-24-2022 08:47-0400 Body height 175.26 cm [facility]; [facility] Work Phone: 10-24-2022 08:47-0400 Body mass index (BMI) [Ratio] 30 kg/m2 [facility]; [facility] Work Phone: 10-24-2022 08:47-0400 Body surface area Derived from formula 2.08 m2 [facility]; [facility] Work Phone: 10-24-2022 08:47-0400 Body temperature 96.4 [degF] [facility]; [facility] Work Phone: 10-24-2022 08:47-0400 Body weight 92.14 kg [facility]; [facility] Work Phone: 10-24-2022 08:47-0400 Diastolic blood pressure 74 mm[Hg] [facility]; [facility] Work Phone: 10-24-2022 08:47-0400 Heart rate 71 /min [facility]; [facility] Work Phone: 10-24-2022 08:47-0400 Respiratory rate 18 /min [facility]; [facility] Work Phone: 10-24-2022 08:47-0400 SaO2% (BldA) [Mass fraction] 98 % [facility]; [facility] Work Phone: 10-24-2022 08:47-0400 Systolic blood pressure 138 mm[Hg] [facility]; [facility] Work Phone: 08-06-2022 08:18-0400 Body height 175.26 cm [facility]; [facility] Work Phone: 08-06-2022 08:18-0400 Body mass index (BMI) [Ratio] 29.83 kg/m2 [facility]; [facility] Work Phone: 08-06-2022 08:18-0400 Body surface area Derived from formula 2.07 m2 [facility]; [facility] Work Phone: 08-06-2022 08:18-0400 Body temperature 97.9 [degF] [facility]; [facility] Work Phone: 08-06-2022 08:18-0400 Body weight 91.63 kg [facility]; [facility] Work Phone: 08-06-2022 08:18-0400 Diastolic blood pressure 80 mm[Hg] [facility]; [facility] Work Phone: 08-06-2022 08:18-0400 Heart rate 65 /min [facility]; [facility] Work Phone: 08-06-2022 08:18-0400 SaO2% (BldA) [Mass fraction] 98 % [facility]; [facility] Work Phone: 08-06-2022 08:18-0400 Systolic blood pressure 130 mm[Hg] [facility]; [facility] Work Phone: 07-18-2022 08:40-0400 Body height 175.26 cm [facility]; [facility] Work Phone: 07-18-2022 08:40-0400 Body mass index (BMI) [Ratio] 30.35 kg/m2 [facility]; [facility] Work Phone: 07-18-2022 08:40-0400 Body surface area Derived from formula 2.09 m2 [facility]; [facility] Work Phone: 07-18-2022 08:40-0400 Body temperature 98.2 [degF] [facility]; [facility] Work Phone: 07-18-2022 08:40-0400 Body weight 93.21 kg [facility]; [facility] Work Phone: 07-18-2022 08:40-0400 Diastolic blood pressure 62 mm[Hg] [facility]; [facility] Work Phone: Comment on above: Patient Position: Sitting; Cuff Location : Left Arm; Cuff Size: Standard 07-18-2022 08:40-0400 Heart rate 71 /min [facility]; [facility] Work Phone: Comment on above: Pattern: Regular 07-18-2022 08:40-0400 Respiratory rate 18 /min [facility]; [facility] Work Phone: Comment on above: Pattern: Unlabored 07-18-2022 08:40-0400 SaO2% (BldA) [Mass fraction] 97 % [facility]; [facility] Work Phone: Comment on above: Room air 07-18-2022 08:40-0400 Systolic blood pressure 132 mm[Hg] [facility]; [facility] Work Phone: Comment on above: Patient Position: Sitting; Cuff Location : Left Arm; Cuff Size: Standard 04-11-2022 08:16-0500 Body height 175.26 cm Marshall Rosenthal [facility]; [facility] Work Phone: 04-11-2022 08:16-0500 Body mass index (BMI) [Ratio] 34.11 kg/m2 [facility]; [facility] Work Phone: 04-11-2022 08:16-0500 Body surface area Derived from formula 2.2 m2 [facility]; [facility] Work Phone: 04-11-2022 08:16-0500 Body temperature 96.96 [degF] [facility]; [facility] Work Phone: 04-11-2022 08:16-0500 [facility] Work Phone: 04-11-2022 08:16-0500 Diastolic blood pressure 80 mm[Hg] [facility]; [facility] Work Phone: Comment on above: Patient Position: Sitting; Cuff Location : Left Arm; Cuff Size: Standard 04-11-2022 08:16-0500 Heart rate 73 /min [facility]; [facility] Work Phone: Comment on above: Pattern: Regular 04-11-2022 08:16-0500 Respiratory rate 16 /min [facility]; [facility] Work Phone: Comment on above: Pattern: Unlabored 04-11-2022 08:16-0500 SaO2% (BldA) [Mass fraction] 95 % [facility]; [facility] Work Phone: Comment on above: Room air 04-11-2022 08:16-0500 Systolic blood pressure 140 mm[Hg] [facility]; [facility] Work Phone: Comment on above: Patient Position: Sitting; Cuff Location : Left Arm; Cuff Size: Standard 01-03-2022 08:20-0500 Body height 175.26 cm [facility]; [facility] Work Phone: 01-03-2022 08:20-0500 Body mass index (BMI) [Ratio] 33.13 kg/m2 [facility]; [facility] Work Phone: 01-03-2022 08:20-0500 Body surface area Derived from formula 2.17 m2 [facility]; [facility] Work Phone: 01-03-2022 08:20-0500 Body temperature 96.9 [degF] [facility]; [facility] Work Phone: 01-03-2022 08:20-0500 Body [facility] 101.78 [facility] Work Phone: 01-03-2022 08:20-0500 Diastolic blood pressure 80 mm[Hg] [facility]; [facility] Work Phone: Comment on above: Patient Position: Sitting; Cuff Location : Left Arm; Cuff Size: Standard 01-03-2022 08:20-0500 Heart rate 67 /min [facility]; [facility] Work Phone: Comment on above: Pattern: Regular 01-03-2022 08:20-0500 Respiratory rate 16 /min [facility]; [facility] Work Phone: Comment on above: Pattern: Unlabored 01-03-2022 08:20-0500 SaO2% (BldA) [Mass fraction] 99 % [facility]; [facility] Work Phone: Comment on above: Room air 01-03-2022 08:20-0500 Systolic blood pressure 160 mm[Hg] [facility]; [facility] Work Phone: Comment on above: Patient Position: Sitting; Cuff Location : Left Arm; Cuff Size: Standard 09-27-2021 08:03-0400 Body height 175.26 cm [facility]; [facility] Work Phone: 09-27-2021 08:03-0400 Body mass index (BMI) [Ratio] 32.21 kg/m2 Angelica Meneses [facility]; [facility] Work Phone: 09-27-2021 08:03-0400 Body surface area Derived from formula 2.14 m2 Angelica Meneses [facility]; [facility] Work Phone: 09-27-2021 08:03-0400 Body temperature 97.3 [degF] Angelica Meneses [facility]; [facility] Work Phone: Comment on above: Method: Infrared 09-27-2021 08:03-0400 Body weight 98.94 kg Angelica Meneses [facility]; [facility] Work Phone: 09-27-2021 08:03-0400 Diastolic blood pressure 100 mm[Hg] Angelica Meneses [employer] [facility]; [facility] Work Phone: Comment on above: Patient Position: Sitting; Cuff Location : Left Arm; Cuff Size: Standard 09-27-2021 08:03-0400 Heart rate 68 /min Angelica Meneses [facility]; [facility] Work Phone: Comment on above: Pattern: Regular 09-27-2021 08:03-0400 Respiratory rate 16 /min Angelica Meneses [facility]; [facility] Work Phone: Comment on above: Pattern: Unlabored 09-27-2021 08:03-0400 SaO2% (BldA) [Mass fraction] 97 % Angelica Meneses [facility]; [facility] Work Phone: Comment on above: Room air 09-27-2021 08:03-0400 Systolic blood pressure 150 mm[Hg] Angelica Meneses [facility]; [facility] Work Phone: Comment on above: Patient Position: Sitting; Cuff Location : Left Arm; Cuff Size: Standard 05-24-2021 11:29-0400 Body height 175.26 cm Angelica Meneses [facility]; [facility] Work Phone: 05-24-2021 11:29-0400 Body mass index (BMI) [Ratio] 32.8 kg/m2 Angelica Meneses C[facility]; [facility] Work Phone: 05-24-2021 11:29-0400 Body surface area Derived from formula 2.16 m2 Angelica Meneses C[facility]; [facility] Work Phone: 05-24-2021 11:29-0400 Body temperature 97.3 [degF] Angelica Meneses [facility]; [facility] Work Phone: Comment on above: Method: Infrared 05-24-2021 11:29-0400 Body weight 100.76 kg Angelica Meneses C[facility]; [facility] Work Phone: 05-24-2021 11:29-0400 Diastolic blood pressure 78 mm[Hg] Angelica Meneses C[facility]; [facility] Work Phone: Comment on above: Patient Position: Sitting; Cuff Location : Left Arm; Cuff Size: Standard 05-24-2021 11:29-0400 Heart rate 79 /min Angelica Meneses [employer] [facility]; [facility] Work Phone: Comment on above: Pattern: Regular 05-24-2021 11:29-0400 Respiratory rate 18 /min Angelica Meneses [facility]; [facility] Work Phone: Comment on above: Pattern: Unlabored 05-24-2021 11:29-0400 SaO2% (BldA) [Mass fraction] 98 % Angelica Meneses [facility]; [facility] Work Phone: Comment on above: Room air 05-24-2021 11:29-0400 Systolic blood pressure 132 mm[Hg] Angelica Meneses C[facility]; [facility] Work Phone: Comment on above: Patient Position: Sitting; Cuff Location : Left Arm; Cuff Size: Standard 02-01-2021 09:47-0500 Body height 175.26 cm Tamar Keane LPN [facility]; [facility] Work Phone: 02-01-2021 09:47-0500 Body mass index (BMI) [Ratio] 30.88 kg/m2 Tamar Keane LPN [facility]; [facility] Work Phone: 02-01-2021 09:47-0500 Body surface area Derived from formula 2.11 m2 Tamar Keane LPN [facility]; [facility] Work Phone: 02-01-2021 09:47-0500 Body temperature 97.9 [degF] Tamar Keane LPN [facility]; [facility] Work Phone: 02-01-2021 09:47-0500 Body weight 94.86 kg Tamar Keane LPN [facility]; [facility] Work Phone: 02-01-2021 09:47-0500 Diastolic blood pressure 90 mm[Hg] Tamar Keane LPN [facility]; [facility] Work Phone: Comment on above: Patient Position: Sitting; Cuff Location : Left Arm; Cuff Size: Standard 02-01-2021 09:47-0500 Heart rate 76 /min Tamar Keane LPN [facility]; [facility] Work Phone: Comment on above: Pattern: Regular 02-01-2021 09:47-0500 Respiratory rate 16 /min Tamar Keane LPN [facility]; [facility] Work Phone: Comment on above: Pattern: Unlabored 02-01-2021 09:47-0500 SaO2% (BldA) [Mass fraction] 97 % Tamar Keane LPN [facility]; [facility] Work Phone: Comment on above: Room air 02-01-2021 09:47-0500 Systolic blood pressure 138 mm[Hg] Tamar Keane LPN [facility]; [facility] Work Phone: Comment on above: Patient Position: Sitting; Cuff Location : Left Arm; Cuff Size: Standard 10-26-2020 08:25-0400 Body height 175.26 cm Angelica Meneses CMA [facility]; [facility] Work Phone: 10-26-2020 08:25-0400 Body mass index (BMI) [Ratio] 31.34 kg/m2 Angelica Meneses CMA [facility]; [facility] Work Phone: 10-26-2020 08:25-0400 Body surface area Derived from formula 2.12 m2 Angelica Meneses CMA [facility]; [facility] Work Phone: 10-26-2020 08:25-0400 Body temperature 97.1 [degF] Angelica Meneses [facility]; [facility] Work Phone: Comment on above: Method: Infrared 10-26-2020 08:25-0400 Body weight 96.28 kg Angelica Meneses CMA [facility]; [facility] Work Phone: 10-26-2020 08:25-0400 Diastolic blood pressure 84 mm[Hg] Angelica Meneses CMA [facility]; [facility] Work Phone: Comment on above: Patient Position: Sitting; Cuff Location : Left Arm; Cuff Size: Standard 10-26-2020 08:25-0400 Heart rate 66 /min Angelica Meneses [facility]; [facility] Work Phone: Comment on above: Pattern: Regular 10-26-2020 08:25-0400 Respiratory rate 16 /min Angelica Meneses [facility]; [facility] Work Phone: Comment on above: Pattern: Unlabored 10-26-2020 08:25-0400 SaO2% (BldA) [Mass fraction] 97 % Angelica Meneses [facility]; [facility] Work Phone: Comment on above: Room air 10-26-2020 08:25-0400 Systolic blood pressure 121 mm[Hg] Angelica Meneses CMA [facility]; [facility] Work Phone: Comment on above: Patient Position: Sitting; Cuff Location : Left Arm; Cuff Size: Standard 07-20-2020 09:44-0400 Body height 175.26 cm [facility]; [facility] Work Phone: 07-20-2020 09:44-0400 Body mass index (BMI) [Ratio] 35.04 kg/m2 [facility]; [facility] Work Phone: 07-20-2020 09:44-0400 Body mass index (BMI) [Ratio] 33.12 kg/m2 Nancy Young [facility]; [facility] Work Phone: 07-20-2020 09:44-0400 Body surface area Derived from formula 2.22 m2 [facility]; [facility] Work Phone: 07-20-2020 09:44-0400 Body surface area Derived from formula 2.17 m2 Nancy Young [facility]; [facility] Work Phone: 07-20-2020 09:44-0400 Body temperature 97.1 [degF] Nancy Hannah [facility]; [facility] Work Phone: Comment on above: Method: Thermal Scan 07-20-2020 09:44-0400 Body weight 107.62 kg [facility]; [facility] Work Phone: 07-20-2020 09:44-0400 Body weight 101.72 kg Nancy Young [facility]; [facility] Work Phone: 07-20-2020 09:44-0400 Diastolic blood pressure 74 mm[Hg] Nancy Hannah [facility]; [facility] Work Phone: Comment on above: Patient Position: Sitting; Cuff Location : Left Arm; Cuff Size: Standard 07-20-2020 09:44-0400 Heart rate 80 /min Nancy Jamilk [facility]; [facility] Work Phone: Comment on above: Pattern: Regular 07-20-2020 09:44-0400 Respiratory rate 16 /min Nancy Jamilk [facility]; [facility] Work Phone: Comment on above: Pattern: Unlabored 07-20-2020 09:44-0400 Systolic blood pressure 130 mm[Hg] Nancy Young [facility]; [facility] Work Phone: Comment on above: Patient Position: Sitting; Cuff Location : Left Arm; Cuff Size: Standard 04-13-2020 08:02-0500 BMI (Body Mass Index) 35.04 kg/m2 [facility]; [facility] Work Phone: Comment on above: Recheck BP 132/80-ACrossLPN 04-13-2020 08:02-0500 Body Temperature 96.4 [degF] [facility]; [facility] Work Phone: Comment on above: Method: Infrared [facility]-13-[facility] 08:02-0500 Body weight 107.62 kg [facility] Internal Medicine; [facility] Work Phone: Comment on above: Recheck BP 132/80-ACrossLPN 04-13-2020 08:02-0500 BP Diastolic 92 mm[Hg] [facility] Internal Medicine; [facility] Work Phone: Comment on above: Patient Position: Sitting; Cuff Location : Left Arm; Cuff Size: Standard [facility] 04-13-2020 08:02-0500 BP Systolic 141 mm[Hg] [facility]; [facility] Work Phone: Comment on above: Patient Position: Sitting; Cuff Location : Left Arm; Cuff Size: Standard [facility] 04-13-2020 08:02-0500 BSA (Body Surface Area) 2.22 m2 [facility] Internal Medicine; [facility] Work Phone: Comment on above: Recheck BP 132/80-ACrossLPN 04-13-2020 08:02-0500 Height 175.26 cm [facility]; [facility] Work Phone: Comment on above: Recheck BP 132/80-ACrossLPN 04-13-2020 08:02-0500 Pulse (Heart Rate) 78 /min [facility] Comprehens[facility] e Internal Medicine; [facility] Work Phone: Comment on above: Pattern: Regular Recheck BP 132/80-AC rossLPN 04-13-2020 08:02-0500 Pulse Oximetry 97 % Marva Kathleen [facility]; [facility] Work Phone: Comment on above: Room air Recheck BP 132/80-AC rossLPN 04-13-2020 08:02-0500 Respiratory Rate 16 /min [facility] Internal Medicine; [facility] Work Phone: Comment on above: Pattern: Unlabored Recheck BP 132/80-AC rossLPN 04-13-2020 08:02-0500 SaO2% (BldA) [Mass fraction] 97 % [facility]; [facility] Work Phone: Comment on above: Room air Recheck BP 132/80-AC rossLPN 11-25-2019 08:23-0400 BMI (Body Mass Index) 32.82 kg/m2 Angelica Meneses [facility] Comprehensive [facility] Medicine Work Phone: 11-25-2019 08:23-0400 Body Temperature 96.8 [degF] Angelica Meneses [facility] Comprehensiv e Internal Medicine Work Phone: Comment on above: Method: Infrared 11-25-2019 08:23-0400 Body weight 100.81 kg Angelica Meneses [facility] Medicine Work Phone: 11-25-2019 08:23-0400 BP Diastolic 90 mm[Hg] Angelica Meneses [facility] Work Phone: Comment on above: Patient Position: Sitting; Cuff Location : Left Arm; Cuff Size: Standard 11-25-2019 08:23-0400 BP Systolic 127 mm[Hg] Angelica Meneses [facility] Work Phone: Comment on above: Patient Position: Sitting; Cuff Location : Left Arm; Cuff Size: Standard 11-25-2019 08:23-0400 BSA (Body Surface Area) 2.16 m2 Angelica Meneses [facility] Medicine Work Phone: 11-25-2019 08:23-0400 Height 175.26 cm Angelica Meneses C[facility] Work Phone: 11-25-2019 08:23-0400 Pulse (Heart Rate) 78 /min Angelica Meneses C[facility] Internal Medicine Work Phone: Comment on above: Pattern: Regular 11-25-2019 08:23-0400 Pulse Oximetry 95 % Marva Wang [facility] Internal Medicine Work Phone: Comment on above: Room air 11-25-2019 08:23-0400 Respiratory Rate 18 /min Angelica Meneses [facility] Internal Medicine Work Phone: Comment on above: Pattern: Unlabored 11-25-2019 08:23-0400 SaO2% (BldA) [Mass fraction] 95 % Angelica Meneses [facility]; [facility] Work Phone: Comment on above: Room air 07-22-2019 13:39-0400 BMI (Body Mass Index) 34.3 kg/m2 Angelica Meneses [facility] Comprehensive [facility] Medicine Work Phone: 07-22-2019 13:39-0400 Body Temperature 96.8 [degF] Angelica Meneses [facility] Work Phone: Comment on above: Method: Temporal 07-22-2019 13:39-0400 Body weight 105.35 kg Angelica Meneses [employer] [facility] Work Phone: 07-22-2019 13:39-0400 BP Diastolic 84 mm[Hg] Angelica Meneses [facility] Work Phone: Comment on above: Patient Position: Sitting; Cuff Location : Left Arm; Cuff Size: Standard 07-22-2019 13:39-0400 BP Systolic 122 mm[Hg] Angelica Meneses [facility] Work Phone: Comment on above: Patient Position: Sitting; Cuff Location : Left Arm; Cuff Size: Standard 07-22-2019 13:39-0400 BSA (Body Surface Area) 2.2 m2 Angelica Meneses [employer] [facility] Work Phone: 07-22-2019 13:39-0400 Height 175.26 cm Angelica Meneses CMA [facility] Work Phone: 07-22-2019 13:39-0400 Pulse (Heart Rate) 96 /min Angelica Meneses CMA Comprehens [facility] Internal Medicine Work Phone: Comment on above: Pattern: Regular 07-22-2019 13:39-0400 Pulse Oximetry 97 % Marva Wang [facility] Internal Medicine Work Phone: Comment on above: Room air 07-22-2019 13:39-0400 Respiratory Rate 16 /min Angelica Meneses CMA Comprehens[facility] e Internal Medicine Work Phone: Comment on above: Pattern: Unlabored 07-22-2019 13:39-0400 SaO2% (BldA) [Mass fraction] 97 % Angelica Meneses CMA [facility]; [facility] Work Phone: Comment on above: Room air 02-04-2019 08:21-0500 BMI (Body Mass Index) 34.15 kg/m2 Angelica Meneses [employer] [facility] Work Phone: 02-04-2019 08:21-0500 Body Temperature 96.7 [degF] Angelica Meneses CMA Comprehens[facility] Medicine Work Phone: Comment on above: Method: Temporal 02-04-2019 08:21-0500 Body weight 104.89 kg Angelica Meneses CMA [facility] Work Phone: 02-04-2019 08:21-0500 BP Diastolic 82 mm[Hg] Angelica Meneses [facility] Work Phone: Comment on above: Patient Position: Sitting; Cuff Location : Left Arm; Cuff Size: Standard 02-04-2019 08:21-0500 BP Systolic 126 mm[Hg] Angelica Meneses [facility] Work Phone: Comment on above: Patient Position: Sitting; Cuff Location : Left Arm; Cuff Size: Standard 02-04-2019 08:21-0500 BSA (Body Surface Area) 2.2 m2 Angelica Meneses [facility] Medicine Work Phone: 02-04-2019 08:21-0500 Height 175.26 cm Angelica Meneses [facility] Medicine Work Phone: 02-04-2019 08:21-0500 Pulse (Heart Rate) 74 /min Angelica Meneses [facility] Comprehens tyron Internal Medicine Work Phone: Comment on above: Pattern: Regular 02-04-2019 08:21-0500 Pulse Oximetry 97 % Marva Geronimoon [facility] Internal Medicine Work Phone: Comment on above: Room air 02-04-2019 08:21-0500 Respiratory Rate 16 /min Angelica Meneses [facility] Comprehensiv e Internal Medicine Work Phone: Comment on above: Pattern: Unlabored 02-04-2019 08:21-0500 SaO2% (BldA) [Mass fraction] 97 % Angelica Meneses [facility]; [facility] Work Phone: Comment on above: Room air 10-29-2018 08:24-0400 BMI (Body Mass Index) 33.85 kg/m2 Kim Slarb [facility] Internal Medicine Work Phone: 10-29-2018 08:24-0400 Body weight 103.99 kg Kim Slarb SENIOR SALES DIRECTOR [facility] Internal Medicine Work Phone: 10-29-2018 08:24-0400 BP Diastolic 90 mm[Hg] Kim Slarb SENIOR SALES DIRECTOR [facility] Internal Medicine Work Phone: Comment on above: Patient Position: Sitting; Cuff Location : Left Arm; Cuff Size: Standard 10-29-2018 08:24-0400 BP Systolic 138 mm[Hg] Kim Slarb [employer]IOR SALES DIRECTOR [facility] Work Phone: Comment on above: Patient Position: Sitting; Cuff Location : Left Arm; Cuff Size: Standard 10-29-2018 08:24-0400 BSA (Body Surface Area) 2.19 m2 Kim Slarb SENIOR SALES DIRECTOR [facility] Work Phone: 10-29-2018 08:24-0400 Height 175.26 cm Kim Ordonez SENIOR SALES DIRECTOR [facility] Work Phone: 10-29-2018 08:24-0400 Pulse (Heart Rate) 68 /min Kim Ordonez LPN Comprehensiv e Internal Medicine Work Phone: Comment on above: Pattern: Regular 10-29-2018 08:24-0400 Pulse Oximetry 98 % Marva Wang [facility] Work Phone: Comment on above: Room air 10-29-2018 08:24-0400 SaO2% (BldA) [Mass fraction] 98 % Kim Ordonez SENIOR SALES DIRECTOR [facility]; [facility] Work Phone: Comment on above: Room air 07-23-2018 08:05-0400 BMI (Body Mass Index) 33.43 kg/m2 Nita Coleman RN [facility] Work Phone: 07-23-2018 08:05-0400 Body weight 102.68 kg Nita Coleman RN [facility] Work Phone: 07-23-2018 08:05-0400 BP Diastolic 80 mm[Hg] Nita Coleman RN [facility] Work Phone: Comment on above: Patient Position: Sitting; Cuff Location : Left Arm; Cuff Size: Large 07-23-2018 08:05-0400 BP Systolic 128 mm[Hg] Nita Coleman RN [facility] Work Phone: Comment on above: Patient Position: Sitting; Cuff Location : Left Arm; Cuff Size: Large 07-23-2018 08:05-0400 BSA (Body Surface Area) 2.18 m2 Nita Coleman RN [facility] Work Phone: 07-23-2018 08:05-0400 Height 175.26 cm Nita Coleman RN [facility] Work Phone: 07-23-2018 08:05-0400 Pulse (Heart Rate) 65 /min Nita Coleman RN Comprehens [facility] Internal Medicine Work Phone: Comment on above: Pattern: Regular 07-23-2018 08:05-0400 Pulse Oximetry 98 % Marva Wang [facility] Work Phone: Comment on above: Room air 07-23-2018 08:05-0400 Respiratory Rate 18 /min Nita Coleman RN Comprehens[facility] e Internal Medicine Work Phone: Comment on above: Pattern: Unlabored 07-23-2018 08:05-0400 SaO2% (BldA) [Mass fraction] 98 % Nita Coleman RN [facility]; [facility] Work Phone: Comment on above: Room air 07-23-2018 08:05-0400 Weight 102.68 kg Marva Wang [facility] Work Phone: 03-19-2018 08:01-0500 BMI (Body Mass Index) 30.44 kg/m2 Marva Wang [facility] Work Phone: 03-19-2018 08:01-0500 BMI (Body Mass Index) 32.65 kg/m2 Marva Kathleen DO Work Phone: [facility] Work Phone: 03-19-2018 08:01-0500 Body Temperature 97.5 [degF] Marva Kathleen DO Work Phone: [facility] Work Phone: Comment on above: Method: Temporal 03-19-2018 08:01-0500 Body weight 100.3 kg Marva Geronimoon DO Work Phone: [facility] Work Phone: 03-19-2018 08:01-0500 BP Diastolic 78 mm[Hg] Marva Kathleen DO Work Phone: [facility] Work Phone: Comment on above: Patient Position: Sitting; Cuff Location : Left Arm; Cuff Size: Standard 03-19-2018 08:01-0500 BP Systolic 138 mm[Hg] Marva Kathleen DO Work Phone: [facility] Work Phone: Comment on above: Patient Position: Sitting; Cuff Location : Left Arm; Cuff Size: Standard 03-19-2018 08:01-0500 BSA (Body Surface Area) 2.09 m2 Marva Wang [facility] Work Phone: 03-19-2018 08:01-0500 BSA (Body Surface Area) 2.16 m2 Marva Kathleen DO Work Phone: [facility] Work Phone: 03-19-2018 08:01-0500 Height 175.26 cm Marva Kathleen DO Work Phone: [facility] Work Phone: 03-19-2018 08:01-0500 Pulse (Heart Rate) 75 /min Marva Kathleen DO Work Phone: [facility] Work Phone: Comment on above: Pattern: Regular 03-19-2018 08:01-0500 Pulse Oximetry 95 % Marva Wang [facility] Work Phone: Comment on above: Room air 03-19-2018 08:01-0500 Respiratory Rate 18 /min Marva Kathleen DO Work Phone: [facility] Work Phone: Comment on above: Pattern: Unlabored 03-19-2018 08:01-0500 SaO2% (BldA) [Mass fraction] 95 % Marva Kathleen DO Work Phone: [facility]; [facility] Work Phone: Comment on above: Room air 03-19-2018 08:01-0500 Weight 93.5 kg Marva Wang [facility] Work Phone: 03-19-2018 08:01-0500 Weight 100.3 kg Marva Wang [facility] Work Phone: 11-13-2017 08:55-0400 BMI (Body Mass Index) 30.44 kg/m2 Nita Coleman RN [facility] Work Phone: 11-13-2017 08:55-0400 Body weight 93.5 kg Nita Coleman RN [facility] Work Phone: 11-13-2017 08:55-0400 BP Diastolic 78 mm[Hg] Nita Coleman RN [facility] Work Phone: Comment on above: Patient Position: Sitting; Cuff Location : Left Arm; Cuff Size: Large 11-13-2017 08:55-0400 BP Systolic 120 mm[Hg] Nita Coleman RN [facility] Work Phone: Comment on above: Patient Position: Sitting; Cuff Location : Left Arm; Cuff Size: Large 11-13-2017 08:55-0400 BSA (Body Surface Area) 2.09 m2 Nita Coleman RN [facility] Work Phone: 11-13-2017 08:55-0400 Height 175.26 cm Nita Coleman RN [facility] Work Phone: 11-13-2017 08:55-0400 Pulse (Heart Rate) 74 /min Nita Coleman RN Comprehens [facility] Internal Medicine Work Phone: Comment on above: Pattern: Regular 11-13-2017 08:55-0400 Pulse Oximetry 98 % Marva Wang [facility] Work Phone: Comment on above: Room air 11-13-2017 08:55-0400 Respiratory Rate 18 /min Nita Coleman RN Comprehensiv e Internal Medicine Work Phone: Comment on above: Pattern: Unlabored 11-13-2017 08:55-0400 SaO2% (BldA) [Mass fraction] 98 % Nita Coleman RN [facility]; [facility] Work Phone: Comment on above: Room air 11-13-2017 08:55-0400 Weight 93.5 kg Marva Wang [facility] Work Phone: 08-07-2017 08:54-0400 BMI (Body Mass Index) 31.47 kg/m2 Nita Coleman RN [facility] Work Phone: 08-07-2017 08:54-0400 Body weight 96.67 kg Nita Coleman RN [facility] Work Phone: 08-07-2017 08:54-0400 BP Diastolic 80 mm[Hg] Nita Coleman RN [facility] Work Phone: Comment on above: Patient Position: Sitting; Cuff Location : Left Arm; Cuff Size: Large 08-07-2017 08:54-0400 BP Systolic 118 mm[Hg] Nita Coleman RN [facility] Work Phone: Comment on above: Patient Position: Sitting; Cuff Location : Left Arm; Cuff Size: Large 08-07-2017 08:54-0400 BSA (Body Surface Area) 2.12 m2 Nita Coleman RN [facility] Work Phone: 08-07-2017 08:54-0400 Height 175.26 cm Nita Coleman RN [facility] Work Phone: 08-07-2017 08:54-0400 Pulse (Heart Rate) 68 /min Nita Coleman RN Comprehens [facility] Internal Medicine Work Phone: Comment on above: Pattern: Regular 08-07-2017 08:54-0400 Pulse Oximetry 97 % Marva Wang [facility] Work Phone: Comment on above: Room air 08-07-2017 08:54-0400 Respiratory Rate 18 /min Nita Coleman RN Comprehensiv e Internal Medicine Work Phone: Comment on above: Pattern: Unlabored 08-07-2017 08:54-0400 SaO2% (BldA) [Mass fraction] 97 % Nita Coleman RN [facility]; [facility] Work Phone: Comment on above: Room air 08-07-2017 08:54-0400 Weight 96.67 kg Marva Wang [facility] Internal Medicine Work Phone: 05-01-2017 08:18-0500 BMI (Body Mass Index) 33.43 kg/m2 Cheri Clancy [facility] Internal Medicine Work Phone: 05-01-2017 08:18-0500 Body Temperature 98 [degF] Cheri Clancy [facility] Internal Medicine Work Phone: 05-01-2017 08:18-0500 Body weight 102.68 kg Cheri Clancy [facility] Internal Medicine Work Phone: 05-01-2017 08:18-0500 BP Diastolic 80 mm[Hg] Cheri [facility] Internal Medicine Work Phone: Comment on above: Patient Position: Sitting; Cuff Location : Left Arm; Cuff Size: Standard 05-01-2017 08:18-0500 BP Systolic 118 mm[Hg] Cheri [facility] Internal Medicine Work Phone: Comment on above: Patient Position: Sitting; Cuff Location : Left Arm; Cuff Size: Standard 05-01-2017 08:18-0500 BSA (Body Surface Area) 2.18 m2 Cheri [facility] Internal Medicine Work Phone: 05-01-2017 08:18-0500 Height 175.26 cm [facility] Work Phone: 05-01-2017 08:18-0500 Pulse (Heart Rate) 95 /min Cheri [facility] Internal Medicine Work Phone: Comment on above: Pattern: Regular 05-01-2017 08:18-0500 Pulse Oximetry 95 % Marva Wang [facility] Internal Medicine Work Phone: Comment on above: Room air 05-01-2017 08:18-0500 Respiratory Rate 18 /min Cheri [facility] Internal Medicine Work Phone: Comment on above: Pattern: Unlabored 05-01-2017 08:18-0500 SaO2% (BldA) [Mass fraction] 95 % Cheri [facility] Internal Medicine; [facility] Internal Medicine Work Phone: Comment on above: Room air 05-01-2017 08:18-0500 Weight 102.68 kg Marva Wang [facility] Internal Medicine Work Phone: 01-23-2017 09:44-0500 BMI (Body Mass Index) 32.49 kg/m2 Nita Coleman RN [facility] Work Phone: 01-23-2017 09:44-0500 Body weight 99.79 kg Nita Coleman RN [facility] Work Phone: 01-23-2017 09:44-0500 BP Diastolic 82 mm[Hg] Nita Coleman RN [facility] Work Phone: Comment on above: Patient Position: Sitting; Cuff Location : Left Arm; Cuff Size: Large 01-23-2017 09:44-0500 BP Systolic 120 mm[Hg] Nita Coleman RN [facility] Work Phone: Comment on above: Patient Position: Sitting; Cuff Location : Left Arm; Cuff Size: Large 01-23-2017 09:44-0500 BSA (Body Surface Area) 2.15 m2 Nita Coleman RN [facility] Work Phone: 01-23-2017 09:44-0500 Height 175.26 cm Nita Coleman RN [facility] Work Phone: 01-23-2017 09:44-0500 Pulse (Heart Rate) 73 /min Nita Coleman RN Comprehens [facility] Internal Medicine Work Phone: Comment on above: Pattern: Regular 01-23-2017 09:44-0500 Pulse Oximetry 94 % Marva Wang [facility] Internal Medicine Work Phone: Comment on above: Room air 01-23-2017 09:44-0500 Respiratory Rate 18 /min Nita Coleman RN Comprehensiv e Internal Medicine Work Phone: Comment on above: Pattern: Unlabored 01-23-2017 09:44-0500 SaO2% (BldA) [Mass fraction] 94 % Nita Coleman RN [facility]; [facility] Work Phone: Comment on above: Room air 01-23-2017 09:44-0500 Weight 99.79 kg Marva Wang [facility] Work Phone: 10-17-2016 08:48-0400 BMI (Body Mass Index) 31.33 kg/m2 Nita Coleman RN [facility] Work Phone: 10-17-2016 08:48-0400 Body weight 96.22 kg Nita Coleman RN [facility] Work Phone: 10-17-2016 08:48-0400 BP Diastolic 82 mm[Hg] Nita Coleman RN [facility] Work Phone: Comment on above: Patient Position: Sitting; Cuff Location : Left Arm; Cuff Size: Large 10-17-2016 08:48-0400 BP Systolic 118 mm[Hg] Nita Coleman RN [facility] Work Phone: Comment on above: Patient Position: Sitting; Cuff Location : Left Arm; Cuff Size: Large 10-17-2016 08:48-0400 BSA (Body Surface Area) 2.12 m2 Nita Coleman RN [facility] Work Phone: 10-17-2016 08:48-0400 Height 175.26 cm Nita Coleman RN [facility] Work Phone: 10-17-2016 08:48-0400 Pulse (Heart Rate) 71 /min Nita Coleman RN Comprehens [facility] Internal Medicine Work Phone: Comment on above: Pattern: Regular 10-17-2016 08:48-0400 Pulse Oximetry 97 % Marva Wang [facility] Internal Medicine Work Phone: Comment on above: Room air 10-17-2016 08:48-0400 Respiratory Rate 18 /min Nita Coleman RN Comprehensiv e Internal Medicine Work Phone: Comment on above: Pattern: Unlabored 10-17-2016 08:48-0400 SaO2% (BldA) [Mass fraction] 97 % Nita Coleman RN [facility]; [facility] Work Phone: Comment on above: Room air 10-17-2016 08:48-0400 Weight 96.22 kg Marva Kathleen [facility] Internal Medicine Work Phone: 07-11-2016 08:20-0400 BMI (Body Mass Index) 31.2 kg/m2 Nancy Young [facility] Comprehensive [facility] Medicine Work Phone: 07-11-2016 08:20-0400 Body weight 95.82 kg Nancy Young [facility] Comprehensive [facility] Medicine Work Phone: 07-11-2016 08:20-0400 BP Diastolic 78 mm[Hg] Nancy Young [facility] Internal Medicine Work Phone: Comment on above: Patient Position: Sitting; Cuff Location : Left Arm; Cuff Size: Standard 07-11-2016 08:20-0400 BP Systolic 122 mm[Hg] Nancy Young [facility] Medicine Work Phone: Comment on above: Patient Position: Sitting; Cuff Location : Left Arm; Cuff Size: Standard 07-11-2016 08:20-0400 BSA (Body Surface Area) 2.11 m2 Nancy Young [facility] Internal Medicine Work Phone: 07-11-2016 08:20-0400 Height 175.26 cm Nancy Young [facility] Internal Medicine Work Phone: 07-11-2016 08:20-0400 Pulse (Heart Rate) 66 /min [facility] Work Phone: Comment on above: Pattern: Regular 07-11-2016 08:20-0400 Pulse Oximetry 98 % Marva Wang [facility] Internal Medicine Work Phone: Comment on above: Room air 07-11-2016 08:20-0400 Respiratory Rate 16 /min [facility] Work Phone: Comment on above: Pattern: Unlabored 07-11-2016 08:20-0400 SaO2% (BldA) [Mass fraction] 98 % [facility]; [facility] Work Phone: Comment on above: Room air 07-11-2016 08:20-0400 Weight 95.82 kg Marva Wang [facility] Internal Medicine Work Phone: 04-10-2016 13:00-0500 BMI (Body Mass Index) 30.75 kg/m2 Kim Slarb [facility] Comprehensive Internal Medicine Work Phone: 04-10-2016 13:00-0500 Body Temperature 98.7 [degF] Kim Slarb [facility] Comprehensive Internal Medicine Work Phone: 04-10-2016 13:00-0500 Body weight 94.46 kg Kim Slarb [facility] Comprehensive Internal Medicine Work Phone: 04-10-2016 13:00-0500 BP Diastolic 80 mm[Hg] Kim Slarb [facility] Medicine Work Phone: Comment on above: Patient Position: Sitting; Cuff Location : Left Arm; Cuff Size: Standard 04-10-2016 13:00-0500 BP Systolic 124 mm[Hg] Kim Slarb SENIOR SALES DIRECTOR [facility] Internal Medicine Work Phone: Comment on above: Patient Position: Sitting; Cuff Location : Left Arm; Cuff Size: Standard 04-10-2016 13:00-0500 BSA (Body Surface Area) 2.1 m2 Kim Ordonez LPN [facility] Internal Medicine Work Phone: 04-10-2016 13:00-0500 Height 175.26 cm Kim Ordonez LPN [facility] Internal Medicine Work Phone: 04-10-2016 13:00-0500 Pulse (Heart Rate) 98 /min [facility]z [facility] Work Phone: Comment on above: Pattern: Regular 04-10-2016 13:00-0500 Pulse Oximetry 97 % Marva Wang [facility] Internal Medicine Work Phone: Comment on above: Room air 04-10-2016 13:00-0500 Respiratory Rate 16 /min Kim Ordonez LPN [facility] Internal Medicine Work Phone: Comment on above: Pattern: Unlabored 04-10-2016 13:00-0500 SaO2% (BldA) [Mass fraction] 97 % Kim Ordonez LPN [facility]; [facility] Work Phone: Comment on above: Room air 04-10-2016 13:00-0500 Weight 94.46 kg Marva Wang [facility] Internal Medicine Work Phone: 03-21-2016 08:12-0500 BMI (Body Mass Index) 30.13 kg/m2 Nancy Young [facility] Comprehensive [facility] Medicine Work Phone: 03-21-2016 08:12-0500 Body weight 92.53 kg Nancy Young [facility] Internal Medicine Work Phone: 03-21-2016 08:12-0500 BP Diastolic 70 mm[Hg] Nancy Young [facility] Internal Medicine Work Phone: Comment on above: Patient Position: Sitting; Cuff Location : Left Arm; Cuff Size: Standard 03-21-2016 08:12-0500 BP Systolic 120 mm[Hg] Nancy Young [facility] Internal Medicine Work Phone: Comment on above: Patient Position: Sitting; Cuff Location : Left Arm; Cuff Size: Standard 03-21-2016 08:12-0500 BSA (Body Surface Area) 2.08 m2 Nancy Young [facility] Internal Medicine Work Phone: 03-21-2016 08:12-0500 Height 175.26 cm Nancy Young [facility] Internal Medicine Work Phone: 03-21-2016 08:12-0500 Pulse (Heart Rate) 77 /min Nancy Young [facility] Internal Medicine Work Phone: Comment on above: Pattern: Regular 03-21-2016 08:12-0500 Pulse Oximetry 98 % Marva Wang [facility] Internal Medicine Work Phone: Comment on above: Room air 03-21-2016 08:12-0500 Respiratory Rate 16 /min Nancy Young [facility] Internal Medicine Work Phone: Comment on above: Pattern: Unlabored 03-21-2016 08:12-0500 SaO2% (BldA) [Mass fraction] 98 % Nancy Young [facility] Internal Medicine; [facility] Internal Medicine Work Phone: Comment on above: Room air 03-21-2016 08:12-0500 Weight 92.53 kg Marva Wang [facility] Medicine Work Phone: 12-14-2015 08:07-0400 BMI (Body Mass Index) 30.42 kg/m2 Venus Perkins [facility] Internal Medicine Work Phone: 12-14-2015 08:07-0400 Body Temperature 98.1 [degF] Venus Perkins [facility] Internal Medicine Work Phone: Comment on above: Method: Tympanic 12-14-2015 08:07-0400 Body weight 93.44 kg Venus Perkins [facility] Internal Medicine Work Phone: 12-14-2015 08:07-0400 BP Diastolic 62 mm[Hg] Venus Perkins [facility] Internal Medicine Work Phone: Comment on above: Patient Position: Sitting; Cuff Location : Left Arm; Cuff Size: Standard 12-14-2015 08:07-0400 BP Systolic 116 mm[Hg] Venus Perkins [facility] Internal Medicine Work Phone: Comment on above: Patient Position: Sitting; Cuff Location : Left Arm; Cuff Size: Standard 12-14-2015 08:07-0400 BSA (Body Surface Area) 2.09 m2 Venus Perkins [facility] Internal Medicine Work Phone: 12-14-2015 08:07-0400 Height 175.26 cm Venus Perkins [facility] Internal Medicine Work Phone: 12-14-2015 08:07-0400 Pulse (Heart Rate) 77 /min Venus Perkins [facility] Internal Medicine Work Phone: Comment on above: Pattern: Regular 12-14-2015 08:07-0400 Pulse Oximetry 98 % Marva Wang [facility] Internal Medicine Work Phone: Comment on above: Room air 12-14-2015 08:07-0400 Respiratory Rate 18 /min Venus Perkins [facility] Internal Medicine Work Phone: Comment on above: Pattern: Unlabored 12-14-2015 08:07-0400 SaO2% (BldA) [Mass fraction] 98 % Venus Perkins [facility] Internal Medicine; [facility] Internal Medicine Work Phone: Comment on above: Room air 12-14-2015 08:07-0400 Weight 93.44 kg Marva Wang [facility] Internal Medicine Work Phone: 09-28-2015 10:00-0400 BMI (Body Mass Index) 34.7 kg/m2 Nancy Young [facility] Comprehensive Internal Medicine Work Phone: 09-28-2015 10:00-0400 Body weight 106.6 kg Nancy Young [facility] Internal Medicine Work Phone: 09-28-2015 10:00-0400 BP Diastolic 70 mm[Hg] Nancy Young [facility] Comprehensive [facility] Medicine Work Phone: Comment on above: Patient Position: Sitting; Cuff Location : Left Arm; Cuff Size: Standard 09-28-2015 10:00-0400 BP Systolic 120 mm[Hg] Nancy Young [facility] Internal Medicine Work Phone: Comment on above: Patient Position: Sitting; Cuff Location : Left Arm; Cuff Size: Standard 09-28-2015 10:00-0400 BSA (Body Surface Area) 2.21 m2 [facility] Work Phone: 09-28-2015 10:00-0400 Height 175.26 cm [facility] Work Phone: 09-28-2015 10:00-0400 Pulse (Heart Rate) 72 /min [facility] Work Phone: Comment on above: Pattern: Regular 09-28-2015 10:00-0400 Respiratory Rate 16 /min [facility] Work [facility]: Comment on above: Pattern: Unlabored 09-28-2015 10:00-0400 Weight 106.6 kg Marva Wang [facility] Internal Medicine Work Phone: 09-14-2015 11:12-0400 BMI (Body Mass Index) 34.7 kg/m2 Nita Coleman [facility] Work Phone: 09-14-2015 11:12-0400 Body weight 106.6 kg Nita Coleman RN [facility] Work Phone: 09-14-2015 11:12-0400 BP Diastolic 80 mm[Hg] Nita Coleman RN [facility] Work Phone: Comment on above: Patient Position: Sitting; Cuff Location : Left Arm; Cuff Size: Standard 09-14-2015 11:12-0400 BP Systolic 128 mm[Hg] Nita Coleman RN [facility] Work Phone: Comment on above: Patient Position: Sitting; Cuff Location : Left Arm; Cuff Size: Standard 09-14-2015 11:12-0400 BSA (Body Surface Area) 2.21 m2 Nita Coleman RN [facility] Medicine Work Phone: 09-14-2015 11:12-0400 Height 175.26 cm Nita Coleman [facility] Work Phone: 09-14-2015 11:12-0400 Pulse (Heart Rate) 70 /min Nita Coleman RN [facility] Work Phone: Comment on above: Pattern: Regular 09-14-2015 11:12-0400 Pulse Oximetry 99 % Marva Wang [facility] Work Phone: Comment on above: Room air 09-14-2015 11:12-0400 Respiratory Rate 18 /min Nita Coleman RN [facility] Work Phone: Comment on above: Pattern: Unlabored 09-14-2015 11:12-0400 SaO2% (BldA) [Mass fraction] 99 % Nita Coleman RN [facility]; [facility] Work Phone: Comment on above: Room air 09-14-2015 11:12-0400 Weight 106.6 kg Marva Geronimoon [facility] Work Phone: 02-15-2010 08:35-0500 BMI (Body Mass Index) 35.97 kg/m2 Nita Coleman RN [facility] Work Phone: 02-15-2010 08:35-0500 Body weight 110.48 kg Nita Coleman RN [facility] Work Phone: 02-15-2010 08:35-0500 BP Diastolic 82 mm[Hg] Nita Coleman RN [facility] Work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 PopulationInsulin Resistance ScoreLP-IR Score Low 25th 50th 75th High <27 27 45 63 >63LP-IR Score is inaccurate if patient is non-fasting. .The LP-IR score is a laboratory developed index that has beenassociated with insulin resistance and diabetes risk and should beused as one component of a physician's clinical assessment. Test(s) 635135-GGX-Z ; 865556-VBL-J; 367329-IMJ-P; 787955-Yylnbzzvctlhk; 033431-Vgwankjprbx, Total; 825394-XLF-K (Total);959880-Azhee LDL-P; 969579-TVH Size; 267668-GN-ZP Scorewas developed and its performance characteristics determinedby [employer]. It has not been cleared or approved by the Foodand Drug Administration.PATIENT WAS FASTINGPERFORMED BY: [employer] [id number] BY: [employer] [facility] [id number] 10-23-2018 LP-IR Score 76 [facility] Work Phone: Comment on above: INSULIN RESISTANCE Yfn VALDES <--Insulin Sensitive Insulin Resistant--> Percentile in Reference PopulationInsulin Resistance ScoreLP-IR Score Low 25th 50th 75th High <27 27 45 63 >63LP-IR Score is inaccurate if patient is non-fasting. .The LP-IR score is a laboratory developed index that has beenassociated with insulin resistance and diabetes risk and should beused as one component of a physician's clinical assessment. TheLP-IR score listed above has not been cleared by the [place] Food andDrug Administration. PATIENT WAS FASTINGP ERFORMED BY: [employer] [id number] BY: [employer] [facility] [id number] Clinical Notes Note Date & Type Note Facility Instructions Name Patient Instructions Indication:Nonsmoker Start:13-Apr-19 Instruction Type:Provider Instructions for Treatment How to Access Health Information Online using Patient Portal and [employer] Apps Indication:Nonsmoker Start:13-Apr-19 Instruction Type:Patient Education How to access health information online Indication:Diabetes mellitus type 2, uncontrolled (Renamed from Uncontrolled type 2 diabetes mellitus) Start:25-Nov-19 Instruction Type:Patient Education How to access health information online - Detail Indication:Diabetes mellitus type 2, uncontrolled (Renamed from Uncontrolled type 2 diabetes mellitus) Start:25-Nov-19 Instruction Type:Patient Education Patient Instructions Indication:Diabetes mellitus type 2, uncontrolled (Renamed from Uncontrolled type 2 diabetes mellitus) Start:25-Nov-19 Instruction Type:Provider Instructions for Treatment How to access health information online Indication:Diabetes mellitus type 2, uncontrolled (Renamed from Uncontrolled type 2 diabetes mellitus) Start:22-Jul-19 Instruction Type:Patient Education How to access health information online - Detail Indication:Diabetes mellitus type 2, uncontrolled (Renamed from Uncontrolled type 2 diabetes mellitus) Start:22-Jul-19 Instruction Type:Patient Education Patient Instructions Indication:Diabetes mellitus type 2, uncontrolled (Renamed from Uncontrolled type 2 diabetes mellitus) Start:22-Jul-19 Instruction Type:Provider Instructions for Treatment How to access health information online Indication:Diabetes mellitus type II, controlled, with no complications (Renamed from Controlled type 2 diabetes mellitus without complication) Start:05-Feb-20 Instruction Type:Patient Education How to access health information online - Detail Indication:Diabetes mellitus type II, controlled, with no complications (Renamed from Controlled type 2 diabetes mellitus without complication) Start:05-Feb-20 Instruction Type:Patient Education Patient Instructions Indication:Diabetes mellitus type II, controlled, with no complications (Renamed from Controlled type 2 diabetes mellitus without complication) Start:05-Feb-20 Instruction Type:Provider Instructions for Treatment How to access health information online Indication:Diabetes mellitus type II, controlled, with no complications (Renamed from Controlled type 2 diabetes mellitus without complication) Start: Instruction Type:Patient Education How to access health information online - Detail Indication:Diabetes mellitus type II, controlled, with no complications (Renamed from Controlled type 2 diabetes mellitus without complication) Start: Instruction Type:Patient Education Patient Instructions Indication:Diabetes mellitus type II, controlled, with no complications (Renamed from Controlled type 2 diabetes mellitus without complication) Start: Instruction Type:Provider Instructions for Treatment How to access health information online Indication:Diabetes mellitus type II, controlled, with no complications (Renamed from Controlled type 2 diabetes mellitus without complication) Start:24-Jul-19 Instruction Type:Patient Education How to access health information online - Detail Indication:Diabetes mellitus type II, controlled, with no complications (Renamed from Controlled type 2 diabetes mellitus without complication) Start:24-Jul-19 Instruction Type:Patient Education Patient Instructions Indication:Diabetes mellitus type II, controlled, with no complications (Renamed from Controlled type 2 diabetes mellitus without complication) Start:24-Jul-19 Instruction Type:Provider Instructions for Treatment How to access health information online Indication:Nutritional counseling Start:19-Mar-19 Instruction Type:Patient Education How to access health information online - Detail Indication:Nutritional counseling Start:19-Mar-19 Instruction Type:Patient Education Patient Instructions Indication:Nutritional counseling Start:19-Mar-19 Instruction Type:Provider Instructions for Treatment How to access health information online Indication:BMI 30.0-30.9,adult Start:14-Nov-19 Instruction Type:Patient Education How to access health information online - Detail Indication:BMI 30.0-30.9,adult Start:14-Nov-19 Instruction Type:Patient Education Patient Instructions Indication:BMI 30.0-30.9,adult Start:14-Nov-19 Instruction Type:Provider Instructions for Treatment How to access health information online Indication:Diabetes mellitus type II, controlled, with no complications (Renamed from Controlled type 2 diabetes mellitus without complication) Start:08-Aug-19 Instruction Type:Patient Education How to access health information online - Detail Indication:Diabetes mellitus type II, controlled, with no complications (Renamed from Controlled type 2 diabetes mellitus without complication) Start:08-Aug-19 Instruction Type:Patient Education Patient Instructions Indication:Diabetes mellitus type II, controlled, with no complications (Renamed from Controlled type 2 diabetes mellitus without complication) Start:08-Aug-19 Instruction Type:Provider Instructions for Treatment How to access health information online Indication:Diabetes mellitus type II, controlled, with no complications (Renamed from Controlled type 2 diabetes mellitus without complication) Start: Instruction Type:Patient Education How to access health information online - Detail Indication:Diabetes mellitus type II, controlled, with no complications (Renamed from Controlled type 2 diabetes mellitus without complication) Start: Instruction Type:Patient Education Patient Instructions Indication:Diabetes mellitus type II, controlled, with no complications (Renamed from Controlled type 2 diabetes mellitus without complication) Start: 8 Instruction Type:Provider Instructions for Treatment How to access health information online Indication:BMI 32.0-32.9,adult Start:24-Jan-20 Instruction Type:Patient Education How to access health information online - Detail Indication:BMI 32.0-32.9,adult Start:24-Jan-20 Instruction Type:Patient Education Patient Instructions Indication:BMI 32.0-32.9,adult Start:24-Jan-20 Instruction Type:Provider Instructions for Treatment How to access health information online Indication:Diabetes mellitus type II, controlled, with no complications (Renamed from Controlled type 2 diabetes mellitus without complication) Start:18-Oct-19 Instruction Type:Patient Education How to access health information online - Detail Indication:Diabetes mellitus type II, controlled, with no complications (Renamed from Controlled type 2 diabetes mellitus without complication) Start:18-Oct-19 Instruction Type:Patient Education Patient Instructions Indication:Diabetes mellitus type II, controlled, with no complications (Renamed from Controlled type 2 diabetes mellitus without complication) Start:18-Oct-19 Instruction Type:Provider Instructions for Treatment How to access health information online Indication:Diabetes mellitus type II, controlled, with no complications (Renamed from Controlled type 2 diabetes mellitus without complication) Start:12-Jul-19 Instruction Type:Patient Education How to access health information online - Detail Indication:Diabetes mellitus type II, controlled, with no complications (Renamed from Controlled type 2 diabetes mellitus without complication) Start:12-Jul-19 Instruction Type:Patient Education Patient Instructions Indication:Diabetes mellitus type II, controlled, with no complications (Renamed from Controlled type 2 diabetes mellitus without complication) Start:12-Jul-19 Instruction Type:Provider Instructions for Treatment How to access health information online Indication:Flu-like symptoms Start:10-Apr-19 Instruction Type:Patient Education How to access health information online - Detail Indication:Flu-like symptoms Start:10-Apr-19 Instruction Type:Patient Education Patient Instructions Indication:Flu-like symptoms Start:10-Apr-19 Instruction Type:Provider Instructions for Treatment How to access health information online Indication:Diabetes mellitus type II, controlled, with no complications (Renamed from Controlled type 2 diabetes mellitus without complication) Start:21-Mar-19 Instruction Type:Patient Education How to access health information online - Detail Indication:Diabetes mellitus type II, controlled, with no complications (Renamed from Controlled type 2 diabetes mellitus without complication) Start:21-Mar-19 Instruction Type:Patient Education Patient Instructions Indication:Diabetes mellitus type II, controlled, with no complications (Renamed from Controlled type 2 diabetes mellitus without complication) Start:21-Mar-19 Instruction Type:Provider Instructions for Treatment How to access health information online Indication:Diabetes mellitus type II, controlled, with no complications (Renamed from Controlled type 2 diabetes mellitus without complication) Start:14-Dec-19 Instruction Type:Patient Education How to access health information online - Detail Indication:Diabetes mellitus type II, controlled, with no complications (Renamed from Controlled type 2 diabetes mellitus without complication) Start:14-Dec-19 Instruction Type:Patient Education Patient Instructions Indication:Diabetes mellitus type II, controlled, with no complications (Renamed from Controlled type 2 diabetes mellitus without complication) Start:14-Dec-19 Instruction Type:Provider Instructions for Treatment How to access health information online Indication:Diabetes mellitus type 2, uncontrolled (Renamed from Uncontrolled type 2 diabetes mellitus) Start: Instruction Type:Patient Education How to access health information online - Detail Indication:Diabetes mellitus type 2, uncontrolled (Renamed from Uncontrolled type 2 diabetes mellitus) Start: Instruction Type:Patient Education Patient Instructions Indication:Diabetes mellitus type 2, uncontrolled (Renamed from Uncontrolled type 2 diabetes mellitus) Start: Instruction Type:Provider Instructions for Treatment Patient Instructions Indication:Diabetes mellitus type II, controlled, with no complications (Renamed from Controlled type 2 diabetes mellitus without complication) Start:14-Sep-19 Instruction Type:Provider Instructions for Treatment [facility]; [facility] Work Phone: Instructions* Name Dates Details How to Access Health Informa tion Online using Patient Portal and [employer] Apps Indication:Nonsmoker Start:20-Jul-2020 Instruction Type:Patient Education Patient Instructions Indication:Nonsmoker Start:20-Jul-2020 Instruction Type:Provider Instructions for Treatment Patient Instructions Indication:Nonsmoker Start:13-Apr-2020 Instruction Type:Provider Instructions for Treatment How to Access Health Informa tion Online using Patient Portal and [employer] Apps Indication:Nonsmoker Start:13-Apr-2020 Instruction Type:Patient Education How to access health informa tion online Indication:Diabetes mellitus type 2, uncontrolled (Renamed from Uncontrolled type 2 diabetes mellitus) Start:25-Nov-2019 Instruction Type:Patient Education How to access health informa tion online - Detail Indication:Diabetes mellitus type 2, uncontrolled (Renamed from Uncontrolled type 2 diabetes mellitus) Start:25-Nov-2019 Instruction Type:Patient Education Patient Instructions Indication:Diabetes mellitus type 2, uncontrolled (Renamed from Uncontrolled type 2 diabetes mellitus) Start:25-Nov-2019 Instruction Type:Provider Instructions for Treatment How to access health informa tion online Indication:Diabetes mellitus type 2, uncontrolled (Renamed from Uncontrolled type 2 diabetes mellitus) Start:22-Jul-2019 Instruction Type:Patient Education How to access health informa tion online - Detail Indication:Diabetes mellitus type 2, uncontrolled (Renamed from Uncontrolled type 2 diabetes mellitus) Start:22-Jul-2019 Instruction Type:Patient Education Patient Instructions Indication:Diabetes mellitus type 2, uncontrolled (Renamed from Uncontrolled type 2 diabetes mellitus) Start:22-Jul-2019 Instruction Type:Provider Instructions for Treatment How to access health informa tion online Indication:Diabetes mellitus type II, controlled, with no complications (Renamed from Controlled type 2 diabetes mellitus without complication) Start:04-Feb-2019 Instruction Type:Patient Education How to access health informa tion online - Detail Indication:Diabetes mellitus type II, controlled, with no complications (Renamed from Controlled type 2 diabetes mellitus without complication) Start:04-Feb-2019 Instruction Type:Patient Education Patient Instructions Indication:Diabetes mellitus type II, controlled, with no complications (Renamed from Controlled type 2 diabetes mellitus without complication) Start:04-Feb-2019 Instruction Type:Provider Instructions for Treatment How to access health informa tion online Indication:Diabetes mellitus type II, controlled, with no complications (Renamed from Controlled type 2 diabetes mellitus without complication) Start:29-Oct-2018 Instruction Type:Patient Education How to access health informa tion online - Detail Indication:Diabetes mellitus type II, controlled, with no complications (Renamed from Controlled type 2 diabetes mellitus without complication) Start:29-Oct-2018 Instruction Type:Patient Education Patient Instructions Indication:Diabetes mellitus type II, controlled, with no complications (Renamed from Controlled type 2 diabetes mellitus without complication) Start:29-Oct-2018 Instruction Type:Provider Instructions for Treatment How to access health informa tion online Indication:Diabetes mellitus type II, controlled, with no complications (Renamed from Controlled type 2 diabetes mellitus without complication) Start:23-Jul-2018 Instruction Type:Patient Education How to access health informa tion online - Detail Indication:Diabetes mellitus type II, controlled, with no complications (Renamed from Controlled type 2 diabetes mellitus without complication) Start:23-Jul-2018 Instruction Type:Patient Education Patient Instructions Indication:Diabetes mellitus type II, controlled, with no complications (Renamed from Controlled type 2 diabetes mellitus without complication) Start:23-Jul-2018 Instruction Type:Provider Instructions for Treatment How to access health informa tion online Indication:Nutritional counseling Start:19-Mar-2018 Instruction Type:Patient Education How to access health informa tion online - Detail Indication:Nutritional counseling Start:19-Mar-2018 Instruction Type:Patient Education Patient Instructions Indication:Nutritional counseling Start:19-Mar-2018 Instruction Type:Provider Instructions for Treatment How to access health informa tion online Indication:BMI 30.0-30.9,adult Start:13-Nov-2017 Instruction Type:Patient Education How to access health informa tion online - Detail Indication:BMI 30.0-30.9,adult Start:13-Nov-2017 Instruction Type:Patient Education Patient Instructions Indication:BMI 30.0-30.9,adult Start:13-Nov-2017 Instruction Type:Provider Instructions for Treatment How to access health informa tion online Indication:Diabetes mellitus type II, controlled, with no complications (Renamed from Controlled type 2 diabetes mellitus without complication) Start:07-Aug-2017 Instruction Type:Patient Education How to access health informa tion online - Detail Indication:Diabetes mellitus type II, controlled, with no complications (Renamed from Controlled type 2 diabetes mellitus without complication) Start:07-Aug-2017 Instruction Type:Patient Education Patient Instructions Indication:Diabetes mellitus type II, controlled, with no complications (Renamed from Controlled type 2 diabetes mellitus without complication) Start:07-Aug-2017 Instruction Type:Provider Instructions for Treatment How to access health informa tion online Indication:Diabetes mellitus type II, controlled, with no complications (Renamed from Controlled type 2 diabetes mellitus without complication) Start:01-May-2017 Instruction Type:Patient Education How to access health informa tion online - Detail Indication:Diabetes mellitus type II, controlled, with no complications (Renamed from Controlled type 2 diabetes mellitus without complication) Start:01-May-2017 Instruction Type:Patient Education Patient Instructions Indication:Diabetes mellitus type II, controlled, with no complications (Renamed from Controlled type 2 diabetes mellitus without complication) Start:01-May-2017 Instruction Type:Provider Instructions for Treatment How to access health informa tion online Indication:BMI 32.0-32.9,adult Start:23-Jan-2017 Instruction Type:Patient Education How to access health informa tion online - Detail Indication:BMI 32.0-32.9,adult Start:23-Jan-2017 Instruction Type:Patient Education Patient Instructions Indication:BMI 32.0-32.9,adult Start:23-Jan-2017 Instruction Type:Provider Instructions for Treatment How to access health informa tion online Indication:Diabetes mellitus type II, controlled, with no complications (Renamed from Controlled type 2 diabetes mellitus without complication) Start:17-Oct-2016 Instruction Type:Patient Education How to access health informa tion online - Detail Indication:Diabetes mellitus type II, controlled, with no complications (Renamed from Controlled type 2 diabetes mellitus without complication) Start:17-Oct-2016 Instruction Type:Patient Education Patient Instructions Indication:Diabetes mellitus type II, controlled, with no complications (Renamed from Controlled type 2 diabetes mellitus without complication) Start:17-Oct-2016 Instruction Type:Provider Instructions for Treatment How to access health informa tion online Indication:Diabetes mellitus type II, controlled, with no complications (Renamed from Controlled type 2 diabetes mellitus without complication) Start:11-Jul-2016 Instruction Type:Patient Education How to access health informa tion online - Detail Indication:Diabetes mellitus type II, controlled, with no complications (Renamed from Controlled type 2 diabetes mellitus without complication) Start:11-Jul-2016 Instruction Type:Patient Education Patient Instructions Indication:Diabetes mellitus type II, controlled, with no complications (Renamed from Controlled type 2 diabetes mellitus without complication) Start:11-Jul-2016 Instruction Type:Provider Instructions for Treatment How to access health informa tion online Indication:Flu-like symptoms Start:10-Apr-2016 Instruction Type:Patient Education How to access health informa tion online - Detail Indication:Flu-like symptoms Start:10-Apr-2016 Instruction Type:Patient Education Patient Instructions Indication:Flu-like symptoms Start:10-Apr-2016 Instruction Type:Provider Instructions for Treatment How to access health informa tion online Indication:Diabetes mellitus type II, controlled, with no complications (Renamed from Controlled type 2 diabetes mellitus without complication) Start:21-Mar-2016 Instruction Type:Patient Education How to access health informa tion online - Detail Indication:Diabetes mellitus type II, controlled, with no complications (Renamed from Controlled type 2 diabetes mellitus without complication) Start:21-Mar-2016 Instruction Type:Patient Education Patient Instructions Indication:Diabetes mellitus type II, controlled, with no complications (Renamed from Controlled type 2 diabetes mellitus without complication) Start:21-Mar-2016 Instruction Type:Provider Instructions for Treatment How to access health informa tion online Indication:Diabetes mellitus type II, controlled, with no complications (Renamed from Controlled type 2 diabetes mellitus without complication) Start:14-Dec-2015 Instruction Type:Patient Education How to access health informa tion online - Detail Indication:Diabetes mellitus type II, controlled, with no complications (Renamed from Controlled type 2 diabetes mellitus without complication) Start:14-Dec-2015 Instruction Type:Patient Education Patient Instructions Indication:Diabetes mellitus type II, controlled, with no complications (Renamed from Controlled type 2 diabetes mellitus without complication) Start:14-Dec-2015 Instruction Type:Provider Instructions for Treatment How to access health informa tion online Indication:Diabetes mellitus type 2, uncontrolled (Renamed from Uncontrolled type 2 diabetes mellitus) Start:28-Sep-2015 Instruction Type:Patient Education How to access health informa tion online - Detail Indication:Diabetes mellitus type 2, uncontrolled (Renamed from Uncontrolled type 2 diabetes mellitus) Start:28-Sep-2015 Instruction Type:Patient Education Patient Instructions Indication:Diabetes mellitus type 2, uncontrolled (Renamed from Uncontrolled type 2 diabetes mellitus) Start:28-Sep-2015 Instruction Type:Provider Instructions for Treatment Patient Instructions Indication:Diabetes mellitus type II, controlled, with no complications (Renamed from Controlled type 2 diabetes mellitus without complication) Start:14-Sep-2015 Instruction Type:Provider Instructions for Treatment [facility]; [facility] Work Phone: Instructions* Name Dates Details How to Access Health Informa tion Online using Patient Portal and [employer] Apps Indication:Nonsmoker Start:20-Jul-2020 Instruction Type:Patient Education Patient Instructions Indication:Nonsmoker Start:20-Jul-2020 Instruction Type:Provider Instructions for Treatment Patient Instructions Indication:Nonsmoker Start:13-Apr-2020 Instruction Type:Provider Instructions for Treatment How to Access Health Informa tion Online using Patient Portal and [employer] Apps Indication:Nonsmoker Start:13-Apr-2020 Instruction Type:Patient Education How to access health informa tion online Indication:Diabetes mellitus type 2, uncontrolled (Renamed from Uncontrolled type 2 diabetes mellitus) Start:25-Nov-2019 Instruction Type:Patient Education How to access health informa tion online - Detail Indication:Diabetes mellitus type 2, uncontrolled (Renamed from Uncontrolled type 2 diabetes mellitus) Start:25-Nov-2019 Instruction Type:Patient Education Patient Instructions Indication:Diabetes mellitus type 2, uncontrolled (Renamed from Uncontrolled type 2 diabetes mellitus) Start:25-Nov-2019 Instruction Type:Provider Instructions for Treatment How to access health informa tion online Indication:Diabetes mellitus type 2, uncontrolled (Renamed from Uncontrolled type 2 diabetes mellitus) Start:22-Jul-2019 Instruction Type:Patient Education How to access health informa tion online - Detail Indication:Diabetes mellitus type 2, uncontrolled (Renamed from Uncontrolled type 2 diabetes mellitus) Start:22-Jul-2019 Instruction Type:Patient Education Patient Instructions Indication:Diabetes mellitus type 2, uncontrolled (Renamed from Uncontrolled type 2 diabetes mellitus) Start:22-Jul-2019 Instruction Type:Provider Instructions for Treatment How to access health informa tion online Indication:Diabetes mellitus type II, controlled, with no complications (Renamed from Controlled type 2 diabetes mellitus without complication) Start:04-Feb-2019 Instruction Type:Patient Education How to access health informa tion online - Detail Indication:Diabetes mellitus type II, controlled, with no complications (Renamed from Controlled type 2 diabetes mellitus without complication) Start:04-Feb-2019 Instruction Type:Patient Education Patient Instructions Indication:Diabetes mellitus type II, controlled, with no complications (Renamed from Controlled type 2 diabetes mellitus without complication) Start:04-Feb-2019 Instruction Type:Provider Instructions for Treatment How to access health informa tion online Indication:Diabetes mellitus type II, controlled, with no complications (Renamed from Controlled type 2 diabetes mellitus without complication) Start:29-Oct-2018 Instruction Type:Patient Education How to access health informa tion online - Detail Indication:Diabetes mellitus type II, controlled, with no complications (Renamed from Controlled type 2 diabetes mellitus without complication) Start:29-Oct-2018 Instruction Type:Patient Education Patient Instructions Indication:Diabetes mellitus type II, controlled, with no complications (Renamed from Controlled type 2 diabetes mellitus without complication) Start:29-Oct-2018 Instruction Type:Provider Instructions for Treatment How to access health informa tion online Indication:Diabetes mellitus type II, controlled, with no complications (Renamed from Controlled type 2 diabetes mellitus without complication) Start:23-Jul-2018 Instruction Type:Patient Education How to access health informa tion online - Detail Indication:Diabetes mellitus type II, controlled, with no complications (Renamed from Controlled type 2 diabetes mellitus without complication) Start:23-Jul-2018 Instruction Type:Patient Education Patient Instructions Indication:Diabetes mellitus type II, controlled, with no complications (Renamed from Controlled type 2 diabetes mellitus without complication) Start:23-Jul-2018 Instruction Type:Provider Instructions for Treatment How to access health informa tion online Indication:Nutritional counseling Start:19-Mar-2018 Instruction Type:Patient Education How to access health informa tion online - Detail Indication:Nutritional counseling Start:19-Mar-2018 Instruction Type:Patient Education Patient Instructions Indication:Nutritional counseling Start:19-Mar-2018 Instruction Type:Provider Instructions for Treatment How to access health informa tion online Indication:BMI 30.0-30.9,adult Start:13-Nov-2017 Instruction Type:Patient Education How to access health informa tion online - Detail Indication:BMI 30.0-30.9,adult Start:13-Nov-2017 Instruction Type:Patient Education Patient Instructions Indication:BMI 30.0-30.9,adult Start:13-Nov-2017 Instruction Type:Provider Instructions for Treatment How to access health informa tion online Indication:Diabetes mellitus type II, controlled, with no complications (Renamed from Controlled type 2 diabetes mellitus without complication) Start:07-Aug-2017 Instruction Type:Patient Education How to access health informa tion online - Detail Indication:Diabetes mellitus type II, controlled, with no complications (Renamed from Controlled type 2 diabetes mellitus without complication) Start:07-Aug-2017 Instruction Type:Patient Education Patient Instructions Indication:Diabetes mellitus type II, controlled, with no complications (Renamed from Controlled type 2 diabetes mellitus without complication) Start:07-Aug-2017 Instruction Type:Provider Instructions for Treatment How to access health informa tion online Indication:Diabetes mellitus type II, controlled, with no complications (Renamed from Controlled type 2 diabetes mellitus without complication) Start:01-May-2017 Instruction Type:Patient Education How to access health informa tion online - Detail Indication:Diabetes mellitus type II, controlled, with no complications (Renamed from Controlled type 2 diabetes mellitus without complication) Start:01-May-2017 Instruction Type:Patient Education Patient Instructions Indication:Diabetes mellitus type II, controlled, with no complications (Renamed from Controlled type 2 diabetes mellitus without complication) Start:01-May-2017 Instruction Type:Provider Instructions for Treatment How to access health informa tion online Indication:BMI 32.0-32.9,adult Start:23-Jan-2017 Instruction Type:Patient Education How to access health informa tion online - Detail Indication:BMI 32.0-32.9,adult Start:23-Jan-2017 Instruction Type:Patient Education Patient Instructions Indication:BMI 32.0-32.9,adult Start:23-Jan-2017 Instruction Type:Provider Instructions for Treatment How to access health informa tion online Indication:Diabetes mellitus type II, controlled, with no complications (Renamed from Controlled type 2 diabetes mellitus without complication) Start:17-Oct-2016 Instruction Type:Patient Education How to access health informa tion online - Detail Indication:Diabetes mellitus type II, controlled, with no complications (Renamed from Controlled type 2 diabetes mellitus without complication) Start:17-Oct-2016 Instruction Type:Patient Education Patient Instructions Indication:Diabetes mellitus type II, controlled, with no complications (Renamed from Controlled type 2 diabetes mellitus without complication) Start:17-Oct-2016 Instruction Type:Provider Instructions for Treatment How to access health informa tion online Indication:Diabetes mellitus type II, controlled, with no complications (Renamed from Controlled type 2 diabetes mellitus without complication) Start:11-Jul-2016 Instruction Type:Patient Education How to access health informa tion online - Detail Indication:Diabetes mellitus type II, controlled, with no complications (Renamed from Controlled type 2 diabetes mellitus without complication) Start:11-Jul-2016 Instruction Type:Patient Education Patient Instructions Indication:Diabetes mellitus type II, controlled, with no complications (Renamed from Controlled type 2 diabetes mellitus without complication) Start:11-Jul-2016 Instruction Type:Provider Instructions for Treatment How to access health informa tion online Indication:Flu-like symptoms Start:10-Apr-2016 Instruction Type:Patient Education How to access health informa tion online - Detail Indication:Flu-like symptoms Start:10-Apr-2016 Instruction Type:Patient Education Patient Instructions Indication:Flu-like symptoms Start:10-Apr-2016 Instruction Type:Provider Instructions for Treatment How to access health informa tion online Indication:Diabetes mellitus type II, controlled, with no complications (Renamed from Controlled type 2 diabetes mellitus without complication) Start:21-Mar-2016 Instruction Type:Patient Education How to access health informa tion online - Detail Indication:Diabetes mellitus type II, controlled, with no complications (Renamed from Controlled type 2 diabetes mellitus without complication) Start:21-Mar-2016 Instruction Type:Patient Education Patient Instructions Indication:Diabetes mellitus type II, controlled, with no complications (Renamed from Controlled type 2 diabetes mellitus without complication) Start:21-Mar-2016 Instruction Type:Provider Instructions for Treatment How to access health informa tion online Indication:Diabetes mellitus type II, controlled, with no complications (Renamed from Controlled type 2 diabetes mellitus without complication) Start:14-Dec-2015 Instruction Type:Patient Education How to access health informa tion online - Detail Indication:Diabetes mellitus type II, controlled, with no complications (Renamed from Controlled type 2 diabetes mellitus without complication) Start:14-Dec-2015 Instruction Type:Patient Education Patient Instructions Indication:Diabetes mellitus type II, controlled, with no complications (Renamed from Controlled type 2 diabetes mellitus without complication) Start:14-Dec-2015 Instruction Type:Provider Instructions for Treatment How to access health informa tion online Indication:Diabetes mellitus type 2, uncontrolled (Renamed from Uncontrolled type 2 diabetes mellitus) Start:28-Sep-2015 Instruction Type:Patient Education How to access health informa tion online - Detail Indication:Diabetes mellitus type 2, uncontrolled (Renamed from Uncontrolled type 2 diabetes mellitus) Start:28-Sep-2015 Instruction Type:Patient Education Patient Instructions Indication:Diabetes mellitus type 2, uncontrolled (Renamed from Uncontrolled type 2 diabetes mellitus) Start:28-Sep-2015 Instruction Type:Provider Instructions for Treatment Patient Instructions Indication:Diabetes mellitus type II, controlled, with no complications (Renamed from Controlled type 2 diabetes mellitus without complication) Start:14-Sep-2015 Instruction Type:Provider Instructions for Treatment [facility]; [facility] Work Phone: Instructions* Name Dates Details Patient Instructions Indication:Diabetes mellitus type II, controlled, with no complications (Renamed from Controlled type 2 diabetes mellitus without complication) Start:01-Feb-2021 Instruction Type:Provider Instructions for Treatment How to Access Health Informa tion Online using Patient Portal and [employer] Apps Indication:Diabetes mellitus type II, controlled, with no complications (Renamed from Controlled type 2 diabetes mellitus without complication) Start:01-Feb-2021 Instruction Type:Patient Education Patient Instructions Indication:BMI 30.0-30.9,adult Start:26-Oct-2020 Instruction Type:Provider Instructions for Treatment How to Access Health Informa tion Online using Patient Portal and [employer] Apps Indication:BMI 30.0-30.9,adult Start:26-Oct-2020 Instruction Type:Patient Education How to Access Health Informa tion Online using Patient Portal and [employer] Apps Indication:Nonsmoker Start:20-Jul-2020 Instruction Type:Patient Education Patient Instructions Indication:Nonsmoker Start:20-Jul-2020 Instruction Type:Provider Instructions for Treatment Patient Instructions Indication:Nonsmoker Start:13-Apr-2020 Instruction Type:Provider Instructions for Treatment How to Access Health Informa tion Online using Patient Portal and [employer] Apps Indication:Nonsmoker Start:13-Apr-2020 Instruction Type:Patient Education How to access health informa tion online Indication:Diabetes mellitus type 2, uncontrolled (Renamed from Uncontrolled type 2 diabetes mellitus) Start:25-Nov-2019 Instruction Type:Patient Education How to access health informa tion online - Detail Indication:Diabetes mellitus type 2, uncontrolled (Renamed from Uncontrolled type 2 diabetes mellitus) Start:25-Nov-2019 Instruction Type:Patient Education Patient Instructions Indication:Diabetes mellitus type 2, uncontrolled (Renamed from Uncontrolled type 2 diabetes mellitus) Start:25-Nov-2019 Instruction Type:Provider Instructions for Treatment How to access health informa tion online Indication:Diabetes mellitus type 2, uncontrolled (Renamed from Uncontrolled type 2 diabetes mellitus) Start:22-Jul-2019 Instruction Type:Patient Education How to access health informa tion online - Detail Indication:Diabetes mellitus type 2, uncontrolled (Renamed from Uncontrolled type 2 diabetes mellitus) Start:22-Jul-2019 Instruction Type:Patient Education Patient Instructions Indication:Diabetes mellitus type 2, uncontrolled (Renamed from Uncontrolled type 2 diabetes mellitus) Start:22-Jul-2019 Instruction Type:Provider Instructions for Treatment How to access health informa tion online Indication:Diabetes mellitus type II, controlled, with no complications (Renamed from Controlled type 2 diabetes mellitus without complication) Start:04-Feb-2019 Instruction Type:Patient Education How to access health informa tion online - Detail Indication:Diabetes mellitus type II, controlled, with no complications (Renamed from Controlled type 2 diabetes mellitus without complication) Start:04-Feb-2019 Instruction Type:Patient Education Patient Instructions Indication:Diabetes mellitus type II, controlled, with no complications (Renamed from Controlled type 2 diabetes mellitus without complication) Start:04-Feb-2019 Instruction Type:Provider Instructions for Treatment How to access health informa tion online Indication:Diabetes mellitus type II, controlled, with no complications (Renamed from Controlled type 2 diabetes mellitus without complication) Start:29-Oct-2018 Instruction Type:Patient Education How to access health informa tion online - Detail Indication:Diabetes mellitus type II, controlled, with no complications (Renamed from Controlled type 2 diabetes mellitus without complication) Start:29-Oct-2018 Instruction Type:Patient Education Patient Instructions Indication:Diabetes mellitus type II, controlled, with no complications (Renamed from Controlled type 2 diabetes mellitus without complication) Start:29-Oct-2018 Instruction Type:Provider Instructions for Treatment How to access health informa tion online Indication:Diabetes mellitus type II, controlled, with no complications (Renamed from Controlled type 2 diabetes mellitus without complication) Start:23-Jul-2018 Instruction Type:Patient Education How to access health informa tion online - Detail Indication:Diabetes mellitus type II, controlled, with no complications (Renamed from Controlled type 2 diabetes mellitus without complication) Start:23-Jul-2018 Instruction Type:Patient Education Patient Instructions Indication:Diabetes mellitus type II, controlled, with no complications (Renamed from Controlled type 2 diabetes mellitus without complication) Start:23-Jul-2018 Instruction Type:Provider Instructions for Treatment How to access health informa tion online Indication:Nutritional counseling Start:19-Mar-2018 Instruction Type:Patient Education How to access health informa tion online - Detail Indication:Nutritional counseling Start:19-Mar-2018 Instruction Type:Patient Education Patient Instructions Indication:Nutritional counseling Start:19-Mar-2018 Instruction Type:Provider Instructions for Treatment How to access health informa tion online Indication:BMI 30.0-30.9,adult Start:13-Nov-2017 Instruction Type:Patient Education How to access health informa tion online - Detail Indication:BMI 30.0-30.9,adult Start:13-Nov-2017 Instruction Type:Patient Education Patient Instructions Indication:BMI 30.0-30.9,adult Start:13-Nov-2017 Instruction Type:Provider Instructions for Treatment How to access health informa tion online Indication:Diabetes mellitus type II, controlled, with no complications (Renamed from Controlled type 2 diabetes mellitus without complication) Start:07-Aug-2017 Instruction Type:Patient Education How to access health informa tion online - Detail Indication:Diabetes mellitus type II, controlled, with no complications (Renamed from Controlled type 2 diabetes mellitus without complication) Start:07-Aug-2017 Instruction Type:Patient Education Patient Instructions Indication:Diabetes mellitus type II, controlled, with no complications (Renamed from Controlled type 2 diabetes mellitus without complication) Start:07-Aug-2017 Instruction Type:Provider Instructions for Treatment How to access health informa tion online Indication:Diabetes mellitus type II, controlled, with no complications (Renamed from Controlled type 2 diabetes mellitus without complication) Start:01-May-2017 Instruction Type:Patient Education How to access health informa tion online - Detail Indication:Diabetes mellitus type II, controlled, with no complications (Renamed from Controlled type 2 diabetes mellitus without complication) Start:01-May-2017 Instruction Type:Patient Education Patient Instructions Indication:Diabetes mellitus type II, controlled, with no complications (Renamed from Controlled type 2 diabetes mellitus without complication) Start:01-May-2017 Instruction Type:Provider Instructions for Treatment How to access health informa tion online Indication:BMI 32.0-32.9,adult Start:23-Jan-2017 Instruction Type:Patient Education How to access health informa tion online - Detail Indication:BMI 32.0-32.9,adult Start:23-Jan-2017 Instruction Type:Patient Education Patient Instructions Indication:BMI 32.0-32.9,adult Start:23-Jan-2017 Instruction Type:Provider Instructions for Treatment How to access health informa tion online Indication:Diabetes mellitus type II, controlled, with no complications (Renamed from Controlled type 2 diabetes mellitus without complication) Start:17-Oct-2016 Instruction Type:Patient Education How to access health informa tion online - Detail Indication:Diabetes mellitus type II, controlled, with no complications (Renamed from Controlled type 2 diabetes mellitus without complication) Start:17-Oct-2016 Instruction Type:Patient Education Patient Instructions Indication:Diabetes mellitus type II, controlled, with no complications (Renamed from Controlled type 2 diabetes mellitus without complication) Start:17-Oct-2016 Instruction Type:Provider Instructions for Treatment How to access health informa tion online Indication:Diabetes mellitus type II, controlled, with no complications (Renamed from Controlled type 2 diabetes mellitus without complication) Start:11-Jul-2016 Instruction Type:Patient Education How to access health informa tion online - Detail Indication:Diabetes mellitus type II, controlled, with no complications (Renamed from Controlled type 2 diabetes mellitus without complication) Start:11-Jul-2016 Instruction Type:Patient Education Patient Instructions Indication:Diabetes mellitus type II, controlled, with no complications (Renamed from Controlled type 2 diabetes mellitus without complication) Start:11-Jul-2016 Instruction Type:Provider Instructions for Treatment How to access health informa tion online Indication:Flu-like symptoms Start:10-Apr-2016 Instruction Type:Patient Education How to access health informa tion online - Detail Indication:Flu-like symptoms Start:10-Apr-2016 Instruction Type:Patient Education Patient Instructions Indication:Flu-like symptoms Start:10-Apr-2016 Instruction Type:Provider Instructions for Treatment How to access health informa tion online Indication:Diabetes mellitus type II, controlled, with no complications (Renamed from Controlled type 2 diabetes mellitus without complication) Start:21-Mar-2016 Instruction Type:Patient Education How to access health informa tion online - Detail Indication:Diabetes mellitus type II, controlled, with no complications (Renamed from Controlled type 2 diabetes mellitus without complication) Start:21-Mar-2016 Instruction Type:Patient Education Patient Instructions Indication:Diabetes mellitus type II, controlled, with no complications (Renamed from Controlled type 2 diabetes mellitus without complication) Start:21-Mar-2016 Instruction Type:Provider Instructions for Treatment How to access health informa tion online Indication:Diabetes mellitus type II, controlled, with no complications (Renamed from Controlled type 2 diabetes mellitus without complication) Start:14-Dec-2015 Instruction Type:Patient Education How to access health informa tion online - Detail Indication:Diabetes mellitus type II, controlled, with no complications (Renamed from Controlled type 2 diabetes mellitus without complication) Start:14-Dec-2015 Instruction Type:Patient Education Patient Instructions Indication:Diabetes mellitus type II, controlled, with no complications (Renamed from Controlled type 2 diabetes mellitus without complication) Start:14-Dec-2015 Instruction Type:Provider Instructions for Treatment How to access health informa tion online Indication:Diabetes mellitus type 2, uncontrolled (Renamed from Uncontrolled type 2 diabetes mellitus) Start:28-Sep-2015 Instruction Type:Patient Education How to access health informa tion online - Detail Indication:Diabetes mellitus type 2, uncontrolled (Renamed from Uncontrolled type 2 diabetes mellitus) Start:28-Sep-2015 Instruction Type:Patient Education Patient Instructions Indication:Diabetes mellitus type 2, uncontrolled (Renamed from Uncontrolled type 2 diabetes mellitus) Start:28-Sep-2015 Instruction Type:Provider Instructions for Treatment Patient Instructions Indication:Diabetes mellitus type II, controlled, with no complications (Renamed from Controlled type 2 diabetes mellitus without complication) Start:14-Sep-2015 Instruction Type:Provider Instructions for Treatment [facility]; [facility] Work Phone: Instructions* Name Dates Details Patient Instructions Indication:Diabetes mellitus type II, controlled, with no complications (Renamed from Controlled type 2 diabetes mellitus without complication) Start:01-Feb-2021 Instruction Type:Provider Instructions for Treatment How to Access Health Informa tion Online using Patient Portal and [employer] Apps Indication:Diabetes mellitus type II, controlled, with no complications (Renamed from Controlled type 2 diabetes mellitus without complication) Start:01-Feb-2021 Instruction Type:Patient Education Patient Instructions Indication:BMI 30.0-30.9,adult Start:26-Oct-2020 Instruction Type:Provider Instructions for Treatment How to Access Health Informa tion Online using Patient Portal and [employer] Apps Indication:BMI 30.0-30.9,adult Start:26-Oct-2020 Instruction Type:Patient Education How to Access Health Informa tion Online using Patient Portal and [employer] Apps Indication:Nonsmoker Start:20-Jul-2020 Instruction Type:Patient Education Patient Instructions Indication:Nonsmoker Start:20-Jul-2020 Instruction Type:Provider Instructions for Treatment Patient Instructions Indication:Nonsmoker Start:13-Apr-2020 Instruction Type:Provider Instructions for Treatment How to Access Health Informa tion Online using Patient Portal and [employer] Apps Indication:Nonsmoker Start:13-Apr-2020 Instruction Type:Patient Education How to access health informa tion online Indication:Diabetes mellitus type 2, uncontrolled (Renamed from Uncontrolled type 2 diabetes mellitus) Start:25-Nov-2019 Instruction Type:Patient Education How to access health informa tion online - Detail Indication:Diabetes mellitus type 2, uncontrolled (Renamed from Uncontrolled type 2 diabetes mellitus) Start:25-Nov-2019 Instruction Type:Patient Education Patient Instructions Indication:Diabetes mellitus type 2, uncontrolled (Renamed from Uncontrolled type 2 diabetes mellitus) Start:25-Nov-2019 Instruction Type:Provider Instructions for Treatment How to access health informa tion online Indication:Diabetes mellitus type 2, uncontrolled (Renamed from Uncontrolled type 2 diabetes mellitus) Start:22-Jul-2019 Instruction Type:Patient Education How to access health informa tion online - Detail Indication:Diabetes mellitus type 2, uncontrolled (Renamed from Uncontrolled type 2 diabetes mellitus) Start:22-Jul-2019 Instruction Type:Patient Education Patient Instructions Indication:Diabetes mellitus type 2, uncontrolled (Renamed from Uncontrolled type 2 diabetes mellitus) Start:22-Jul-2019 Instruction Type:Provider Instructions for Treatment How to access health informa tion online Indication:Diabetes mellitus type II, controlled, with no complications (Renamed from Controlled type 2 diabetes mellitus without complication) Start:04-Feb-2019 Instruction Type:Patient Education How to access health informa tion online - Detail Indication:Diabetes mellitus type II, controlled, with no complications (Renamed from Controlled type 2 diabetes mellitus without complication) Start:04-Feb-2019 Instruction Type:Patient Education Patient Instructions Indication:Diabetes mellitus type II, controlled, with no complications (Renamed from Controlled type 2 diabetes mellitus without complication) Start:04-Feb-2019 Instruction Type:Provider Instructions for Treatment How to access health informa tion online Indication:Diabetes mellitus type II, controlled, with no complications (Renamed from Controlled type 2 diabetes mellitus without complication) Start:29-Oct-2018 Instruction Type:Patient Education How to access health informa tion online - Detail Indication:Diabetes mellitus type II, controlled, with no complications (Renamed from Controlled type 2 diabetes mellitus without complication) Start:29-Oct-2018 Instruction Type:Patient Education Patient Instructions Indication:Diabetes mellitus type II, controlled, with no complications (Renamed from Controlled type 2 diabetes mellitus without complication) Start:29-Oct-2018 Instruction Type:Provider Instructions for Treatment How to access health informa tion online Indication:Diabetes mellitus type II, controlled, with no complications (Renamed from Controlled type 2 diabetes mellitus without complication) Start:23-Jul-2018 Instruction Type:Patient Education How to access health informa tion online - Detail Indication:Diabetes mellitus type II, controlled, with no complications (Renamed from Controlled type 2 diabetes mellitus without complication) Start:23-Jul-2018 Instruction Type:Patient Education Patient Instructions Indication:Diabetes mellitus type II, controlled, with no complications (Renamed from Controlled type 2 diabetes mellitus without complication) Start:23-Jul-2018 Instruction Type:Provider Instructions for Treatment How to access health informa tion online Indication:Nutritional counseling Start:19-Mar-2018 Instruction Type:Patient Education How to access health informa tion online - Detail Indication:Nutritional counseling Start:19-Mar-2018 Instruction Type:Patient Education Patient Instructions Indication:Nutritional counseling Start:19-Mar-2018 Instruction Type:Provider Instructions for Treatment How to access health informa tion online Indication:BMI 30.0-30.9,adult Start:13-Nov-2017 Instruction Type:Patient Education How to access health informa tion online - Detail Indication:BMI 30.0-30.9,adult Start:13-Nov-2017 Instruction Type:Patient Education Patient Instructions Indication:BMI 30.0-30.9,adult Start:13-Nov-2017 Instruction Type:Provider Instructions for Treatment How to access health informa tion online Indication:Diabetes mellitus type II, controlled, with no complications (Renamed from Controlled type 2 diabetes mellitus without complication) Start:07-Aug-2017 Instruction Type:Patient Education How to access health informa tion online - Detail Indication:Diabetes mellitus type II, controlled, with no complications (Renamed from Controlled type 2 diabetes mellitus without complication) Start:07-Aug-2017 Instruction Type:Patient Education Patient Instructions Indication:Diabetes mellitus type II, controlled, with no complications (Renamed from Controlled type 2 diabetes mellitus without complication) Start:07-Aug-2017 Instruction Type:Provider Instructions for Treatment How to access health informa tion online Indication:Diabetes mellitus type II, controlled, with no complications (Renamed from Controlled type 2 diabetes mellitus without complication) Start:01-May-2017 Instruction Type:Patient Education How to access health informa tion online - Detail Indication:Diabetes mellitus type II, controlled, with no complications (Renamed from Controlled type 2 diabetes mellitus without complication) Start:01-May-2017 Instruction Type:Patient Education Patient Instructions Indication:Diabetes mellitus type II, controlled, with no complications (Renamed from Controlled type 2 diabetes mellitus without complication) Start:01-May-2017 Instruction Type:Provider Instructions for Treatment How to access health informa tion online Indication:BMI 32.0-32.9,adult Start:23-Jan-2017 Instruction Type:Patient Education How to access health informa tion online - Detail Indication:BMI 32.0-32.9,adult Start:23-Jan-2017 Instruction Type:Patient Education Patient Instructions Indication:BMI 32.0-32.9,adult Start:23-Jan-2017 Instruction Type:Provider Instructions for Treatment How to access health informa tion online Indication:Diabetes mellitus type II, controlled, with no complications (Renamed from Controlled type 2 diabetes mellitus without complication) Start:17-Oct-2016 Instruction Type:Patient Education How to access health informa tion online - Detail Indication:Diabetes mellitus type II, controlled, with no complications (Renamed from Controlled type 2 diabetes mellitus without complication) Start:17-Oct-2016 Instruction Type:Patient Education Patient Instructions Indication:Diabetes mellitus type II, controlled, with no complications (Renamed from Controlled type 2 diabetes mellitus without complication) Start:17-Oct-2016 Instruction Type:Provider Instructions for Treatment How to access health informa tion online Indication:Diabetes mellitus type II, controlled, with no complications (Renamed from Controlled type 2 diabetes mellitus without complication) Start:11-Jul-2016 Instruction Type:Patient Education How to access health informa tion online - Detail Indication:Diabetes mellitus type II, controlled, with no complications (Renamed from Controlled type 2 diabetes mellitus without complication) Start:11-Jul-2016 Instruction Type:Patient Education Patient Instructions Indication:Diabetes mellitus type II, controlled, with no complications (Renamed from Controlled type 2 diabetes mellitus without complication) Start:11-Jul-2016 Instruction Type:Provider Instructions for Treatment How to access health informa tion online Indication:Flu-like symptoms Start:10-Apr-2016 Instruction Type:Patient Education How to access health informa tion online - Detail Indication:Flu-like symptoms Start:10-Apr-2016 Instruction Type:Patient Education Patient Instructions Indication:Flu-like symptoms Start:10-Apr-2016 Instruction Type:Provider Instructions for Treatment How to access health informa tion online Indication:Diabetes mellitus type II, controlled, with no complications (Renamed from Controlled type 2 diabetes mellitus without complication) Start:21-Mar-2016 Instruction Type:Patient Education How to access health informa tion online - Detail Indication:Diabetes mellitus type II, controlled, with no complications (Renamed from Controlled type 2 diabetes mellitus without complication) Start:21-Mar-2016 Instruction Type:Patient Education Patient Instructions Indication:Diabetes mellitus type II, controlled, with no complications (Renamed from Controlled type 2 diabetes mellitus without complication) Start:21-Mar-2016 Instruction Type:Provider Instructions for Treatment How to access health informa tion online Indication:Diabetes mellitus type II, controlled, with no complications (Renamed from Controlled type 2 diabetes mellitus without complication) Start:14-Dec-2015 Instruction Type:Patient Education How to access health informa tion online - Detail Indication:Diabetes mellitus type II, controlled, with no complications (Renamed from Controlled type 2 diabetes mellitus without complication) Start:14-Dec-2015 Instruction Type:Patient Education Patient Instructions Indication:Diabetes mellitus type II, controlled, with no complications (Renamed from Controlled type 2 diabetes mellitus without complication) Start:14-Dec-2015 Instruction Type:Provider Instructions for Treatment How to access health informa tion online Indication:Diabetes mellitus type 2, uncontrolled (Renamed from Uncontrolled type 2 diabetes mellitus) Start:28-Sep-2015 Instruction Type:Patient Education How to access health informa tion online - Detail Indication:Diabetes mellitus type 2, uncontrolled (Renamed from Uncontrolled type 2 diabetes mellitus) Start:28-Sep-2015 Instruction Type:Patient Education Patient Instructions Indication:Diabetes mellitus type 2, uncontrolled (Renamed from Uncontrolled type 2 diabetes mellitus) Start:28-Sep-2015 Instruction Type:Provider Instructions for Treatment Patient Instructions Indication:Diabetes mellitus type II, controlled, with no complications (Renamed from Controlled type 2 diabetes mellitus without complication) Start:14-Sep-2015 Instruction Type:Provider Instructions for Treatment [facility]; [facility] Work Phone: Instructions* Name Dates Details Patient Instructions Indication:Nonsmoker Start:24-May-2021 Instruction Type:Provider Instructions for Treatment How to Access Health Informa tion Online using Patient Portal and [employer] Apps Indication:Nonsmoker Start:24-May-2021 Instruction Type:Patient Education Patient Instructions Indication:Diabetes mellitus type II, controlled, with no complications (Renamed from Controlled type 2 diabetes mellitus without complication) Start:01-Feb-2021 Instruction Type:Provider Instructions for Treatment How to Access Health Informa tion Online using Patient Portal and [employer] Apps Indication:Diabetes mellitus type II, controlled, with no complications (Renamed from Controlled type 2 diabetes mellitus without complication) Start:01-Feb-2021 Instruction Type:Patient Education Patient Instructions Indication:BMI 30.0-30.9,adult Start:26-Oct-2020 Instruction Type:Provider Instructions for Treatment How to Access Health Informa tion Online using Patient Portal and [employer] Apps Indication:BMI 30.0-30.9,adult Start:26-Oct-2020 Instruction Type:Patient Education How to Access Health Informa tion Online using Patient Portal and [employer] Apps Indication:Nonsmoker Start:20-Jul-2020 Instruction Type:Patient Education Patient Instructions Indication:Nonsmoker Start:20-Jul-2020 Instruction Type:Provider Instructions for Treatment Patient Instructions Indication:Nonsmoker Start:13-Apr-2020 Instruction Type:Provider Instructions for Treatment How to Access Health Informa tion Online using Patient Portal and [employer] Apps Indication:Nonsmoker Start:13-Apr-2020 Instruction Type:Patient Education How to access health informa tion online Indication:Diabetes mellitus type 2, uncontrolled (Renamed from Uncontrolled type 2 diabetes mellitus) Start:25-Nov-2019 Instruction Type:Patient Education How to access health informa tion online - Detail Indication:Diabetes mellitus type 2, uncontrolled (Renamed from Uncontrolled type 2 diabetes mellitus) Start:25-Nov-2019 Instruction Type:Patient Education Patient Instructions Indication:Diabetes mellitus type 2, uncontrolled (Renamed from Uncontrolled type 2 diabetes mellitus) Start:25-Nov-2019 Instruction Type:Provider Instructions for Treatment How to access health informa tion online Indication:Diabetes mellitus type 2, uncontrolled (Renamed from Uncontrolled type 2 diabetes mellitus) Start:22-Jul-2019 Instruction Type:Patient Education How to access health informa tion online - Detail Indication:Diabetes mellitus type 2, uncontrolled (Renamed from Uncontrolled type 2 diabetes mellitus) Start:22-Jul-2019 Instruction Type:Patient Education Patient Instructions Indication:Diabetes mellitus type 2, uncontrolled (Renamed from Uncontrolled type 2 diabetes mellitus) Start:22-Jul-2019 Instruction Type:Provider Instructions for Treatment How to access health informa tion online Indication:Diabetes mellitus type II, controlled, with no complications (Renamed from Controlled type 2 diabetes mellitus without complication) Start:04-Feb-2019 Instruction Type:Patient Education How to access health informa tion online - Detail Indication:Diabetes mellitus type II, controlled, with no complications (Renamed from Controlled type 2 diabetes mellitus without complication) Start:04-Feb-2019 Instruction Type:Patient Education Patient Instructions Indication:Diabetes mellitus type II, controlled, with no complications (Renamed from Controlled type 2 diabetes mellitus without complication) Start:04-Feb-2019 Instruction Type:Provider Instructions for Treatment How to access health informa tion online Indication:Diabetes mellitus type II, controlled, with no complications (Renamed from Controlled type 2 diabetes mellitus without complication) Start:29-Oct-2018 Instruction Type:Patient Education How to access health informa tion online - Detail Indication:Diabetes mellitus type II, controlled, with no complications (Renamed from Controlled type 2 diabetes mellitus without complication) Start:29-Oct-2018 Instruction Type:Patient Education Patient Instructions Indication:Diabetes mellitus type II, controlled, with no complications (Renamed from Controlled type 2 diabetes mellitus without complication) Start:29-Oct-2018 Instruction Type:Provider Instructions for Treatment How to access health informa tion online Indication:Diabetes mellitus type II, controlled, with no complications (Renamed from Controlled type 2 diabetes mellitus without complication) Start:23-Jul-2018 Instruction Type:Patient Education How to access health informa tion online - Detail Indication:Diabetes mellitus type II, controlled, with no complications (Renamed from Controlled type 2 diabetes mellitus without complication) Start:23-Jul-2018 Instruction Type:Patient Education Patient Instructions Indication:Diabetes mellitus type II, controlled, with no complications (Renamed from Controlled type 2 diabetes mellitus without complication) Start:23-Jul-2018 Instruction Type:Provider Instructions for Treatment How to access health informa tion online Indication:Nutritional counseling Start:19-Mar-2018 Instruction Type:Patient Education How to access health informa tion online - Detail Indication:Nutritional counseling Start:19-Mar-2018 Instruction Type:Patient Education Patient Instructions Indication:Nutritional counseling Start:19-Mar-2018 Instruction Type:Provider Instructions for Treatment How to access health informa tion online Indication:BMI 30.0-30.9,adult Start:13-Nov-2017 Instruction Type:Patient Education How to access health informa tion online - Detail Indication:BMI 30.0-30.9,adult Start:13-Nov-2017 Instruction Type:Patient Education Patient Instructions Indication:BMI 30.0-30.9,adult Start:13-Nov-2017 Instruction Type:Provider Instructions for Treatment How to access health informa tion online Indication:Diabetes mellitus type II, controlled, with no complications (Renamed from Controlled type 2 diabetes mellitus without complication) Start:07-Aug-2017 Instruction Type:Patient Education How to access health informa tion online - Detail Indication:Diabetes mellitus type II, controlled, with no complications (Renamed from Controlled type 2 diabetes mellitus without complication) Start:07-Aug-2017 Instruction Type:Patient Education Patient Instructions Indication:Diabetes mellitus type II, controlled, with no complications (Renamed from Controlled type 2 diabetes mellitus without complication) Start:07-Aug-2017 Instruction Type:Provider Instructions for Treatment How to access health informa tion online Indication:Diabetes mellitus type II, controlled, with no complications (Renamed from Controlled type 2 diabetes mellitus without complication) Start:01-May-2017 Instruction Type:Patient Education How to access health informa tion online - Detail Indication:Diabetes mellitus type II, controlled, with no complications (Renamed from Controlled type 2 diabetes mellitus without complication) Start:01-May-2017 Instruction Type:Patient Education Patient Instructions Indication:Diabetes mellitus type II, controlled, with no complications (Renamed from Controlled type 2 diabetes mellitus without complication) Start:01-May-2017 Instruction Type:Provider Instructions for Treatment How to access health informa tion online Indication:BMI 32.0-32.9,adult Start:23-Jan-2017 Instruction Type:Patient Education How to access health informa tion online - Detail Indication:BMI 32.0-32.9,adult Start:23-Jan-2017 Instruction Type:Patient Education Patient Instructions Indication:BMI 32.0-32.9,adult Start:23-Jan-2017 Instruction Type:Provider Instructions for Treatment How to access health informa tion online Indication:Diabetes mellitus type II, controlled, with no complications (Renamed from Controlled type 2 diabetes mellitus without complication) Start:17-Oct-2016 Instruction Type:Patient Education How to access health informa tion online - Detail Indication:Diabetes mellitus type II, controlled, with no complications (Renamed from Controlled type 2 diabetes mellitus without complication) Start:17-Oct-2016 Instruction Type:Patient Education Patient Instructions Indication:Diabetes mellitus type II, controlled, with no complications (Renamed from Controlled type 2 diabetes mellitus without complication) Start:17-Oct-2016 Instruction Type:Provider Instructions for Treatment How to access health informa tion online Indication:Diabetes mellitus type II, controlled, with no complications (Renamed from Controlled type 2 diabetes mellitus without complication) Start:11-Jul-2016 Instruction Type:Patient Education How to access health informa tion online - Detail Indication:Diabetes mellitus type II, controlled, with no complications (Renamed from Controlled type 2 diabetes mellitus without complication) Start:11-Jul-2016 Instruction Type:Patient Education Patient Instructions Indication:Diabetes mellitus type II, controlled, with no complications (Renamed from Controlled type 2 diabetes mellitus without complication) Start:11-Jul-2016 Instruction Type:Provider Instructions for Treatment How to access health informa tion online Indication:Flu-like symptoms Start:10-Apr-2016 Instruction Type:Patient Education How to access health informa tion online - Detail Indication:Flu-like symptoms Start:10-Apr-2016 Instruction Type:Patient Education Patient Instructions Indication:Flu-like symptoms Start:10-Apr-2016 Instruction Type:Provider Instructions for Treatment How to access health informa tion online Indication:Diabetes mellitus type II, controlled, with no complications (Renamed from Controlled type 2 diabetes mellitus without complication) Start:21-Mar-2016 Instruction Type:Patient Education How to access health informa tion online - Detail Indication:Diabetes mellitus type II, controlled, with no complications (Renamed from Controlled type 2 diabetes mellitus without complication) Start:21-Mar-2016 Instruction Type:Patient Education Patient Instructions Indication:Diabetes mellitus type II, controlled, with no complications (Renamed from Controlled type 2 diabetes mellitus without complication) Start:21-Mar-2016 Instruction Type:Provider Instructions for Treatment How to access health informa tion online Indication:Diabetes mellitus type II, controlled, with no complications (Renamed from Controlled type 2 diabetes mellitus without complication) Start:14-Dec-2015 Instruction Type:Patient Education How to access health informa tion online - Detail Indication:Diabetes mellitus type II, controlled, with no complications (Renamed from Controlled type 2 diabetes mellitus without complication) Start:14-Dec-2015 Instruction Type:Patient Education Patient Instructions Indication:Diabetes mellitus type II, controlled, with no complications (Renamed from Controlled type 2 diabetes mellitus without complication) Start:14-Dec-2015 Instruction Type:Provider Instructions for Treatment How to access health informa tion online Indication:Diabetes mellitus type 2, uncontrolled (Renamed from Uncontrolled type 2 diabetes mellitus) Start:28-Sep-2015 Instruction Type:Patient Education How to access health informa tion online - Detail Indication:Diabetes mellitus type 2, uncontrolled (Renamed from Uncontrolled type 2 diabetes mellitus) Start:28-Sep-2015 Instruction Type:Patient Education Patient Instructions Indication:Diabetes mellitus type 2, uncontrolled (Renamed from Uncontrolled type 2 diabetes mellitus) Start:28-Sep-2015 Instruction Type:Provider Instructions for Treatment Patient Instructions Indication:Diabetes mellitus type II, controlled, with no complications (Renamed from Controlled type 2 diabetes mellitus without complication) Start:14-Sep-2015 Instruction Type:Provider Instructions for Treatment [facility]; [facility] Work Phone: Instructions* Name Dates Details Patient Instructions Indication:Type II diabetes mellitus, well controlled Start:27-Sep-2021 Instruction Type:Provider Instructions for Treatment How to Access Health Informa tion Online using Patient Portal and [employer] Apps Indication:Type II diabetes mellitus, well controlled Start:27-Sep-2021 Instruction Type:Patient Education Patient Instructions Indication:Nonsmoker Start:24-May-2021 Instruction Type:Provider Instructions for Treatment How to Access Health Informa tion Online using Patient Portal and [employer] Apps Indication:Nonsmoker Start:24-May-2021 Instruction Type:Patient Education Patient Instructions Indication:Diabetes mellitus type II, controlled, with no complications (Renamed from Controlled type 2 diabetes mellitus without complication) Start:01-Feb-2021 Instruction Type:Provider Instructions for Treatment How to Access Health Informa tion Online using Patient Portal and [employer] Apps Indication:Diabetes mellitus type II, controlled, with no complications (Renamed from Controlled type 2 diabetes mellitus without complication) Start:01-Feb-2021 Instruction Type:Patient Education Patient Instructions Indication:BMI 30.0-30.9,adult Start:26-Oct-2020 Instruction Type:Provider Instructions for Treatment How to Access Health Informa tion Online using Patient Portal and [employer] Apps Indication:BMI 30.0-30.9,adult Start:26-Oct-2020 Instruction Type:Patient Education How to Access Health Informa tion Online using Patient Portal and [employer] Apps Indication:Nonsmoker Start:20-Jul-2020 Instruction Type:Patient Education Patient Instructions Indication:Nonsmoker Start:20-Jul-2020 Instruction Type:Provider Instructions for Treatment Patient Instructions Indication:Nonsmoker Start:13-Apr-2020 Instruction Type:Provider Instructions for Treatment How to Access Health Informa tion Online using Patient Portal and [employer] Apps Indication:Nonsmoker Start:13-Apr-2020 Instruction Type:Patient Education How to access health informa tion online Indication:Diabetes mellitus type 2, uncontrolled (Renamed from Uncontrolled type 2 diabetes mellitus) Start:25-Nov-2019 Instruction Type:Patient Education How to access health informa tion online - Detail Indication:Diabetes mellitus type 2, uncontrolled (Renamed from Uncontrolled type 2 diabetes mellitus) Start:25-Nov-2019 Instruction Type:Patient Education Patient Instructions Indication:Diabetes mellitus type 2, uncontrolled (Renamed from Uncontrolled type 2 diabetes mellitus) Start:25-Nov-2019 Instruction Type:Provider Instructions for Treatment How to access health informa tion online Indication:Diabetes mellitus type 2, uncontrolled (Renamed from Uncontrolled type 2 diabetes mellitus) Start:22-Jul-2019 Instruction Type:Patient Education How to access health informa tion online - Detail Indication:Diabetes mellitus type 2, uncontrolled (Renamed from Uncontrolled type 2 diabetes mellitus) Start:22-Jul-2019 Instruction Type:Patient Education Patient Instructions Indication:Diabetes mellitus type 2, uncontrolled (Renamed from Uncontrolled type 2 diabetes mellitus) Start:22-Jul-2019 Instruction Type:Provider Instructions for Treatment How to access health informa tion online Indication:Diabetes mellitus type II, controlled, with no complications (Renamed from Controlled type 2 diabetes mellitus without complication) Start:04-Feb-2019 Instruction Type:Patient Education How to access health informa tion online - Detail Indication:Diabetes mellitus type II, controlled, with no complications (Renamed from Controlled type 2 diabetes mellitus without complication) Start:04-Feb-2019 Instruction Type:Patient Education Patient Instructions Indication:Diabetes mellitus type II, controlled, with no complications (Renamed from Controlled type 2 diabetes mellitus without complication) Start:04-Feb-2019 Instruction Type:Provider Instructions for Treatment How to access health informa tion online Indication:Diabetes mellitus type II, controlled, with no complications (Renamed from Controlled type 2 diabetes mellitus without complication) Start:29-Oct-2018 Instruction Type:Patient Education How to access health informa tion online - Detail Indication:Diabetes mellitus type II, controlled, with no complications (Renamed from Controlled type 2 diabetes mellitus without complication) Start:29-Oct-2018 Instruction Type:Patient Education Patient Instructions Indication:Diabetes mellitus type II, controlled, with no complications (Renamed from Controlled type 2 diabetes mellitus without complication) Start:29-Oct-2018 Instruction Type:Provider Instructions for Treatment How to access health informa tion online Indication:Diabetes mellitus type II, controlled, with no complications (Renamed from Controlled type 2 diabetes mellitus without complication) Start:23-Jul-2018 Instruction Type:Patient Education How to access health informa tion online - Detail Indication:Diabetes mellitus type II, controlled, with no complications (Renamed from Controlled type 2 diabetes mellitus without complication) Start:23-Jul-2018 Instruction Type:Patient Education Patient Instructions Indication:Diabetes mellitus type II, controlled, with no complications (Renamed from Controlled type 2 diabetes mellitus without complication) Start:23-Jul-2018 Instruction Type:Provider Instructions for Treatment How to access health informa tion online Indication:Nutritional counseling Start:19-Mar-2018 Instruction Type:Patient Education How to access health informa tion online - Detail Indication:Nutritional counseling Start:19-Mar-2018 Instruction Type:Patient Education Patient Instructions Indication:Nutritional counseling Start:19-Mar-2018 Instruction Type:Provider Instructions for Treatment How to access health informa tion online Indication:BMI 30.0-30.9,adult Start:13-Nov-2017 Instruction Type:Patient Education How to access health informa tion online - Detail Indication:BMI 30.0-30.9,adult Start:13-Nov-2017 Instruction Type:Patient Education Patient Instructions Indication:BMI 30.0-30.9,adult Start:13-Nov-2017 Instruction Type:Provider Instructions for Treatment How to access health informa tion online Indication:Diabetes mellitus type II, controlled, with no complications (Renamed from Controlled type 2 diabetes mellitus without complication) Start:07-Aug-2017 Instruction Type:Patient Education How to access health informa tion online - Detail Indication:Diabetes mellitus type II, controlled, with no complications (Renamed from Controlled type 2 diabetes mellitus without complication) Start:07-Aug-2017 Instruction Type:Patient Education Patient Instructions Indication:Diabetes mellitus type II, controlled, with no complications (Renamed from Controlled type 2 diabetes mellitus without complication) Start:07-Aug-2017 Instruction Type:Provider Instructions for Treatment How to access health informa tion online Indication:Diabetes mellitus type II, controlled, with no complications (Renamed from Controlled type 2 diabetes mellitus without complication) Start:01-May-2017 Instruction Type:Patient Education How to access health informa tion online - Detail Indication:Diabetes mellitus type II, controlled, with no complications (Renamed from Controlled type 2 diabetes mellitus without complication) Start:01-May-2017 Instruction Type:Patient Education Patient Instructions Indication:Diabetes mellitus type II, controlled, with no complications (Renamed from Controlled type 2 diabetes mellitus without complication) Start:01-May-2017 Instruction Type:Provider Instructions for Treatment How to access health informa tion online Indication:BMI 32.0-32.9,adult Start:23-Jan-2017 Instruction Type:Patient Education How to access health informa tion online - Detail Indication:BMI 32.0-32.9,adult Start:23-Jan-2017 Instruction Type:Patient Education Patient Instructions Indication:BMI 32.0-32.9,adult Start:23-Jan-2017 Instruction Type:Provider Instructions for Treatment How to access health informa tion online Indication:Diabetes mellitus type II, controlled, with no complications (Renamed from Controlled type 2 diabetes mellitus without complication) Start:17-Oct-2016 Instruction Type:Patient Education How to access health informa tion online - Detail Indication:Diabetes mellitus type II, controlled, with no complications (Renamed from Controlled type 2 diabetes mellitus without complication) Start:17-Oct-2016 Instruction Type:Patient Education Patient Instructions Indication:Diabetes mellitus type II, controlled, with no complications (Renamed from Controlled type 2 diabetes mellitus without complication) Start:17-Oct-2016 Instruction Type:Provider Instructions for Treatment How to access health informa tion online Indication:Diabetes mellitus type II, controlled, with no complications (Renamed from Controlled type 2 diabetes mellitus without complication) Start:11-Jul-2016 Instruction Type:Patient Education How to access health informa tion online - Detail Indication:Diabetes mellitus type II, controlled, with no complications (Renamed from Controlled type 2 diabetes mellitus without complication) Start:11-Jul-2016 Instruction Type:Patient Education Patient Instructions Indication:Diabetes mellitus type II, controlled, with no complications (Renamed from Controlled type 2 diabetes mellitus without complication) Start:11-Jul-2016 Instruction Type:Provider Instructions for Treatment How to access health informa tion online Indication:Flu-like symptoms Start:10-Apr-2016 Instruction Type:Patient Education How to access health informa tion online - Detail Indication:Flu-like symptoms Start:10-Apr-2016 Instruction Type:Patient Education Patient Instructions Indication:Flu-like symptoms Start:10-Apr-2016 Instruction Type:Provider Instructions for Treatment How to access health informa tion online Indication:Diabetes mellitus type II, controlled, with no complications (Renamed from Controlled type 2 diabetes mellitus without complication) Start:21-Mar-2016 Instruction Type:Patient Education How to access health informa tion online - Detail Indication:Diabetes mellitus type II, controlled, with no complications (Renamed from Controlled type 2 diabetes mellitus without complication) Start:21-Mar-2016 Instruction Type:Patient Education Patient Instructions Indication:Diabetes mellitus type II, controlled, with no complications (Renamed from Controlled type 2 diabetes mellitus without complication) Start:21-Mar-2016 Instruction Type:Provider Instructions for Treatment How to access health informa tion online Indication:Diabetes mellitus type II, controlled, with no complications (Renamed from Controlled type 2 diabetes mellitus without complication) Start:14-Dec-2015 Instruction Type:Patient Education How to access health informa tion online - Detail Indication:Diabetes mellitus type II, controlled, with no complications (Renamed from Controlled type 2 diabetes mellitus without complication) Start:14-Dec-2015 Instruction Type:Patient Education Patient Instructions Indication:Diabetes mellitus type II, controlled, with no complications (Renamed from Controlled type 2 diabetes mellitus without complication) Start:14-Dec-2015 Instruction Type:Provider Instructions for Treatment How to access health informa tion online Indication:Diabetes mellitus type 2, uncontrolled (Renamed from Uncontrolled type 2 diabetes mellitus) Start:28-Sep-2015 Instruction Type:Patient Education How to access health informa tion online - Detail Indication:Diabetes mellitus type 2, uncontrolled (Renamed from Uncontrolled type 2 diabetes mellitus) Start:28-Sep-2015 Instruction Type:Patient Education Patient Instructions Indication:Diabetes mellitus type 2, uncontrolled (Renamed from Uncontrolled type 2 diabetes mellitus) Start:28-Sep-2015 Instruction Type:Provider Instructions for Treatment Patient Instructions Indication:Diabetes mellitus type II, controlled, with no complications (Renamed from Controlled type 2 diabetes mellitus without complication) Start:14-Sep-2015 Instruction Type:Provider Instructions for Treatment [facility]; [facility] Work Phone: Instructions* Name Dates Details Patient Instructions Indication:Type II diabetes mellitus, well controlled Start:27-Sep-2021 Instruction Type:Provider Instructions for Treatment How to Access Health Informa tion Online using Patient Portal and [employer] Apps Indication:Type II diabetes mellitus, well controlled Start:27-Sep-2021 Instruction Type:Patient Education Patient Instructions Indication:Nonsmoker Start:24-May-2021 Instruction Type:Provider Instructions for Treatment How to Access Health Informa tion Online using Patient Portal and [employer] Apps Indication:Nonsmoker Start:24-May-2021 Instruction Type:Patient Education Patient Instructions Indication:Diabetes mellitus type II, controlled, with no complications (Renamed from Controlled type 2 diabetes mellitus without complication) Start:01-Feb-2021 Instruction Type:Provider Instructions for Treatment How to Access Health Informa tion Online using Patient Portal and [employer] Apps Indication:Diabetes mellitus type II, controlled, with no complications (Renamed from Controlled type 2 diabetes mellitus without complication) Start:01-Feb-2021 Instruction Type:Patient Education Patient Instructions Indication:BMI 30.0-30.9,adult Start:26-Oct-2020 Instruction Type:Provider Instructions for Treatment How to Access Health Informa tion Online using Patient Portal and [employer] Apps Indication:BMI 30.0-30.9,adult Start:26-Oct-2020 Instruction Type:Patient Education How to Access Health Informa tion Online using Patient Portal and [employer] Apps Indication:Nonsmoker Start:20-Jul-2020 Instruction Type:Patient Education Patient Instructions Indication:Nonsmoker Start:20-Jul-2020 Instruction Type:Provider Instructions for Treatment Patient Instructions Indication:Nonsmoker Start:13-Apr-2020 Instruction Type:Provider Instructions for Treatment How to Access Health Informa tion Online using Patient Portal and [employer] Apps Indication:Nonsmoker Start:13-Apr-2020 Instruction Type:Patient Education How to access health informa tion online Indication:Diabetes mellitus type 2, uncontrolled (Renamed from Uncontrolled type 2 diabetes mellitus) Start:25-Nov-2019 Instruction Type:Patient Education How to access health informa tion online - Detail Indication:Diabetes mellitus type 2, uncontrolled (Renamed from Uncontrolled type 2 diabetes mellitus) Start:25-Nov-2019 Instruction Type:Patient Education Patient Instructions Indication:Diabetes mellitus type 2, uncontrolled (Renamed from Uncontrolled type 2 diabetes mellitus) Start:25-Nov-2019 Instruction Type:Provider Instructions for Treatment How to access health informa tion online Indication:Diabetes mellitus type 2, uncontrolled (Renamed from Uncontrolled type 2 diabetes mellitus) Start:22-Jul-2019 Instruction Type:Patient Education How to access health informa tion online - Detail Indication:Diabetes mellitus type 2, uncontrolled (Renamed from Uncontrolled type 2 diabetes mellitus) Start:22-Jul-2019 Instruction Type:Patient Education Patient Instructions Indication:Diabetes mellitus type 2, uncontrolled (Renamed from Uncontrolled type 2 diabetes mellitus) Start:22-Jul-2019 Instruction Type:Provider Instructions for Treatment How to access health informa tion online Indication:Diabetes mellitus type II, controlled, with no complications (Renamed from Controlled type 2 diabetes mellitus without complication) Start:04-Feb-2019 Instruction Type:Patient Education How to access health informa tion online - Detail Indication:Diabetes mellitus type II, controlled, with no complications (Renamed from Controlled type 2 diabetes mellitus without complication) Start:04-Feb-2019 Instruction Type:Patient Education Patient Instructions Indication:Diabetes mellitus type II, controlled, with no complications (Renamed from Controlled type 2 diabetes mellitus without complication) Start:04-Feb-2019 Instruction Type:Provider Instructions for Treatment How to access health informa tion online Indication:Diabetes mellitus type II, controlled, with no complications (Renamed from Controlled type 2 diabetes mellitus without complication) Start:29-Oct-2018 Instruction Type:Patient Education How to access health informa tion online - Detail Indication:Diabetes mellitus type II, controlled, with no complications (Renamed from Controlled type 2 diabetes mellitus without complication) Start:29-Oct-2018 Instruction Type:Patient Education Patient Instructions Indication:Diabetes mellitus type II, controlled, with no complications (Renamed from Controlled type 2 diabetes mellitus without complication) Start:29-Oct-2018 Instruction Type:Provider Instructions for Treatment How to access health informa tion online Indication:Diabetes mellitus type II, controlled, with no complications (Renamed from Controlled type 2 diabetes mellitus without complication) Start:23-Jul-2018 Instruction Type:Patient Education How to access health informa tion online - Detail Indication:Diabetes mellitus type II, controlled, with no complications (Renamed from Controlled type 2 diabetes mellitus without complication) Start:23-Jul-2018 Instruction Type:Patient Education Patient Instructions Indication:Diabetes mellitus type II, controlled, with no complications (Renamed from Controlled type 2 diabetes mellitus without complication) Start:23-Jul-2018 Instruction Type:Provider Instructions for Treatment How to access health informa tion online Indication:Nutritional counseling Start:19-Mar-2018 Instruction Type:Patient Education How to access health informa tion online - Detail Indication:Nutritional counseling Start:19-Mar-2018 Instruction Type:Patient Education Patient Instructions Indication:Nutritional counseling Start:19-Mar-2018 Instruction Type:Provider Instructions for Treatment How to access health informa tion online Indication:BMI 30.0-30.9,adult Start:13-Nov-2017 Instruction Type:Patient Education How to access health informa tion online - Detail Indication:BMI 30.0-30.9,adult Start:13-Nov-2017 Instruction Type:Patient Education Patient Instructions Indication:BMI 30.0-30.9,adult Start:13-Nov-2017 Instruction Type:Provider Instructions for Treatment How to access health informa tion online Indication:Diabetes mellitus type II, controlled, with no complications (Renamed from Controlled type 2 diabetes mellitus without complication) Start:07-Aug-2017 Instruction Type:Patient Education How to access health informa tion online - Detail Indication:Diabetes mellitus type II, controlled, with no complications (Renamed from Controlled type 2 diabetes mellitus without complication) Start:07-Aug-2017 Instruction Type:Patient Education Patient Instructions Indication:Diabetes mellitus type II, controlled, with no complications (Renamed from Controlled type 2 diabetes mellitus without complication) Start:07-Aug-2017 Instruction Type:Provider Instructions for Treatment How to access health informa tion online Indication:Diabetes mellitus type II, controlled, with no complications (Renamed from Controlled type 2 diabetes mellitus without complication) Start:01-May-2017 Instruction Type:Patient Education How to access health informa tion online - Detail Indication:Diabetes mellitus type II, controlled, with no complications (Renamed from Controlled type 2 diabetes mellitus without complication) Start:01-May-2017 Instruction Type:Patient Education Patient Instructions Indication:Diabetes mellitus type II, controlled, with no complications (Renamed from Controlled type 2 diabetes mellitus without complication) Start:01-May-2017 Instruction Type:Provider Instructions for Treatment How to access health informa tion online Indication:BMI 32.0-32.9,adult Start:23-Jan-2017 Instruction Type:Patient Education How to access health informa tion online - Detail Indication:BMI 32.0-32.9,adult Start:23-Jan-2017 Instruction Type:Patient Education Patient Instructions Indication:BMI 32.0-32.9,adult Start:23-Jan-2017 Instruction Type:Provider Instructions for Treatment How to access health informa tion online Indication:Diabetes mellitus type II, controlled, with no complications (Renamed from Controlled type 2 diabetes mellitus without complication) Start:17-Oct-2016 Instruction Type:Patient Education How to access health informa tion online - Detail Indication:Diabetes mellitus type II, controlled, with no complications (Renamed from Controlled type 2 diabetes mellitus without complication) Start:17-Oct-2016 Instruction Type:Patient Education Patient Instructions Indication:Diabetes mellitus type II, controlled, with no complications (Renamed from Controlled type 2 diabetes mellitus without complication) Start:17-Oct-2016 Instruction Type:Provider Instructions for Treatment How to access health informa tion online Indication:Diabetes mellitus type II, controlled, with no complications (Renamed from Controlled type 2 diabetes mellitus without complication) Start:11-Jul-2016 Instruction Type:Patient Education How to access health informa tion online - Detail Indication:Diabetes mellitus type II, controlled, with no complications (Renamed from Controlled type 2 diabetes mellitus without complication) Start:11-Jul-2016 Instruction Type:Patient Education Patient Instructions Indication:Diabetes mellitus type II, controlled, with no complications (Renamed from Controlled type 2 diabetes mellitus without complication) Start:11-Jul-2016 Instruction Type:Provider Instructions for Treatment How to access health informa tion online Indication:Flu-like symptoms Start:10-Apr-2016 Instruction Type:Patient Education How to access health informa tion online - Detail Indication:Flu-like symptoms Start:10-Apr-2016 Instruction Type:Patient Education Patient Instructions Indication:Flu-like symptoms Start:10-Apr-2016 Instruction Type:Provider Instructions for Treatment How to access health informa tion online Indication:Diabetes mellitus type II, controlled, with no complications (Renamed from Controlled type 2 diabetes mellitus without complication) Start:21-Mar-2016 Instruction Type:Patient Education How to access health informa tion online - Detail Indication:Diabetes mellitus type II, controlled, with no complications (Renamed from Controlled type 2 diabetes mellitus without complication) Start:21-Mar-2016 Instruction Type:Patient Education Patient Instructions Indication:Diabetes mellitus type II, controlled, with no complications (Renamed from Controlled type 2 diabetes mellitus without complication) Start:21-Mar-2016 Instruction Type:Provider Instructions for Treatment How to access health informa tion online Indication:Diabetes mellitus type II, controlled, with no complications (Renamed from Controlled type 2 diabetes mellitus without complication) Start:14-Dec-2015 Instruction Type:Patient Education How to access health informa tion online - Detail Indication:Diabetes mellitus type II, controlled, with no complications (Renamed from Controlled type 2 diabetes mellitus without complication) Start:14-Dec-2015 Instruction Type:Patient Education Patient Instructions Indication:Diabetes mellitus type II, controlled, with no complications (Renamed from Controlled type 2 diabetes mellitus without complication) Start:14-Dec-2015 Instruction Type:Provider Instructions for Treatment How to access health informa tion online Indication:Diabetes mellitus type 2, uncontrolled (Renamed from Uncontrolled type 2 diabetes mellitus) Start:28-Sep-2015 Instruction Type:Patient Education How to access health informa tion online - Detail Indication:Diabetes mellitus type 2, uncontrolled (Renamed from Uncontrolled type 2 diabetes mellitus) Start:28-Sep-2015 Instruction Type:Patient Education Patient Instructions Indication:Diabetes mellitus type 2, uncontrolled (Renamed from Uncontrolled type 2 diabetes mellitus) Start:28-Sep-2015 Instruction Type:Provider Instructions for Treatment Patient Instructions Indication:Diabetes mellitus type II, controlled, with no complications (Renamed from Controlled type 2 diabetes mellitus without complication) Start:14-Sep-2015 Instruction Type:Provider Instructions for Treatment [facility]; [facility] Work Phone: Instructions* Name Dates Details Patient Instructions Indication:BMI 33.0-33.9,adult Start:03-Jan-2022 Instruction Type:Provider Instructions for Treatment How to Access Health Informa tion Online using Patient Portal and [employer] Apps Indication:BMI 33.0-33.9,adult Start:03-Jan-2022 Instruction Type:Patient Education Patient Instructions Indication:Type II diabetes mellitus, well controlled Start:27-Sep-2021 Instruction Type:Provider Instructions for Treatment How to Access Health Informa tion Online using Patient Portal and [employer] Apps Indication:Type II diabetes mellitus, well controlled Start:27-Sep-2021 Instruction Type:Patient Education Patient Instructions Indication:Nonsmoker Start:24-May-2021 Instruction Type:Provider Instructions for Treatment How to Access Health Informa tion Online using Patient Portal and [employer] Apps Indication:Nonsmoker Start:24-May-2021 Instruction Type:Patient Education Patient Instructions Indication:Diabetes mellitus type II, controlled, with no complications (Renamed from Controlled type 2 diabetes mellitus without complication) Start:01-Feb-2021 Instruction Type:Provider Instructions for Treatment How to Access Health Informa tion Online using Patient Portal and [employer] Apps Indication:Diabetes mellitus type II, controlled, with no complications (Renamed from Controlled type 2 diabetes mellitus without complication) Start:01-Feb-2021 Instruction Type:Patient Education Patient Instructions Indication:BMI 30.0-30.9,adult Start:26-Oct-2020 Instruction Type:Provider Instructions for Treatment How to Access Health Informa tion Online using Patient Portal and [employer] Apps Indication:BMI 30.0-30.9,adult Start:26-Oct-2020 Instruction Type:Patient Education How to Access Health Informa tion Online using Patient Portal and [employer] Apps Indication:Nonsmoker Start:20-Jul-2020 Instruction Type:Patient Education Patient Instructions Indication:Nonsmoker Start:20-Jul-2020 Instruction Type:Provider Instructions for Treatment Patient Instructions Indication:Nonsmoker Start:13-Apr-2020 Instruction Type:Provider Instructions for Treatment How to Access Health Informa tion Online using Patient Portal and [employer] Apps Indication:Nonsmoker Start:13-Apr-2020 Instruction Type:Patient Education How to access health informa tion online Indication:Diabetes mellitus type 2, uncontrolled (Renamed from Uncontrolled type 2 diabetes mellitus) Start:25-Nov-2019 Instruction Type:Patient Education How to access health informa tion online - Detail Indication:Diabetes mellitus type 2, uncontrolled (Renamed from Uncontrolled type 2 diabetes mellitus) Start:25-Nov-2019 Instruction Type:Patient Education Patient Instructions Indication:Diabetes mellitus type 2, uncontrolled (Renamed from Uncontrolled type 2 diabetes mellitus) Start:25-Nov-2019 Instruction Type:Provider Instructions for Treatment How to access health informa tion online Indication:Diabetes mellitus type 2, uncontrolled (Renamed from Uncontrolled type 2 diabetes mellitus) Start:22-Jul-2019 Instruction Type:Patient Education How to access health informa tion online - Detail Indication:Diabetes mellitus type 2, uncontrolled (Renamed from Uncontrolled type 2 diabetes mellitus) Start:22-Jul-2019 Instruction Type:Patient Education Patient Instructions Indication:Diabetes mellitus type 2, uncontrolled (Renamed from Uncontrolled type 2 diabetes mellitus) Start:22-Jul-2019 Instruction Type:Provider Instructions for Treatment How to access health informa tion online Indication:Diabetes mellitus type II, controlled, with no complications (Renamed from Controlled type 2 diabetes mellitus without complication) Start:04-Feb-2019 Instruction Type:Patient Education How to access health informa tion online - Detail Indication:Diabetes mellitus type II, controlled, with no complications (Renamed from Controlled type 2 diabetes mellitus without complication) Start:04-Feb-2019 Instruction Type:Patient Education Patient Instructions Indication:Diabetes mellitus type II, controlled, with no complications (Renamed from Controlled type 2 diabetes mellitus without complication) Start:04-Feb-2019 Instruction Type:Provider Instructions for Treatment How to access health informa tion online Indication:Diabetes mellitus type II, controlled, with no complications (Renamed from Controlled type 2 diabetes mellitus without complication) Start:29-Oct-2018 Instruction Type:Patient Education How to access health informa tion online - Detail Indication:Diabetes mellitus type II, controlled, with no complications (Renamed from Controlled type 2 diabetes mellitus without complication) Start:29-Oct-2018 Instruction Type:Patient Education Patient Instructions Indication:Diabetes mellitus type II, controlled, with no complications (Renamed from Controlled type 2 diabetes mellitus without complication) Start:29-Oct-2018 Instruction Type:Provider Instructions for Treatment How to access health informa tion online Indication:Diabetes mellitus type II, controlled, with no complications (Renamed from Controlled type 2 diabetes mellitus without complication) Start:23-Jul-2018 Instruction Type:Patient Education How to access health informa tion online - Detail Indication:Diabetes mellitus type II, controlled, with no complications (Renamed from Controlled type 2 diabetes mellitus without complication) Start:23-Jul-2018 Instruction Type:Patient Education Patient Instructions Indication:Diabetes mellitus type II, controlled, with no complications (Renamed from Controlled type 2 diabetes mellitus without complication) Start:23-Jul-2018 Instruction Type:Provider Instructions for Treatment How to access health informa tion online Indication:Nutritional counseling Start:19-Mar-2018 Instruction Type:Patient Education How to access health informa tion online - Detail Indication:Nutritional counseling Start:19-Mar-2018 Instruction Type:Patient Education Patient Instructions Indication:Nutritional counseling Start:19-Mar-2018 Instruction Type:Provider Instructions for Treatment How to access health informa tion online Indication:BMI 30.0-30.9,adult Start:13-Nov-2017 Instruction Type:Patient Education How to access health informa tion online - Detail Indication:BMI 30.0-30.9,adult Start:13-Nov-2017 Instruction Type:Patient Education Patient Instructions Indication:BMI 30.0-30.9,adult Start:13-Nov-2017 Instruction Type:Provider Instructions for Treatment How to access health informa tion online Indication:Diabetes mellitus type II, controlled, with no complications (Renamed from Controlled type 2 diabetes mellitus without complication) Start:07-Aug-2017 Instruction Type:Patient Education How to access health informa tion online - Detail Indication:Diabetes mellitus type II, controlled, with no complications (Renamed from Controlled type 2 diabetes mellitus without complication) Start:07-Aug-2017 Instruction Type:Patient Education Patient Instructions Indication:Diabetes mellitus type II, controlled, with no complications (Renamed from Controlled type 2 diabetes mellitus without complication) Start:07-Aug-2017 Instruction Type:Provider Instructions for Treatment How to access health informa tion online Indication:Diabetes mellitus type II, controlled, with no complications (Renamed from Controlled type 2 diabetes mellitus without complication) Start:01-May-2017 Instruction Type:Patient Education How to access health informa tion online - Detail Indication:Diabetes mellitus type II, controlled, with no complications (Renamed from Controlled type 2 diabetes mellitus without complication) Start:01-May-2017 Instruction Type:Patient Education Patient Instructions Indication:Diabetes mellitus type II, controlled, with no complications (Renamed from Controlled type 2 diabetes mellitus without complication) Start:01-May-2017 Instruction Type:Provider Instructions for Treatment How to access health informa tion online Indication:BMI 32.0-32.9,adult Start:23-Jan-2017 Instruction Type:Patient Education How to access health informa tion online - Detail Indication:BMI 32.0-32.9,adult Start:23-Jan-2017 Instruction Type:Patient Education Patient Instructions Indication:BMI 32.0-32.9,adult Start:23-Jan-2017 Instruction Type:Provider Instructions for Treatment How to access health informa tion online Indication:Diabetes mellitus type II, controlled, with no complications (Renamed from Controlled type 2 diabetes mellitus without complication) Start:17-Oct-2016 Instruction Type:Patient Education How to access health informa tion online - Detail Indication:Diabetes mellitus type II, controlled, with no complications (Renamed from Controlled type 2 diabetes mellitus without complication) Start:17-Oct-2016 Instruction Type:Patient Education Patient Instructions Indication:Diabetes mellitus type II, controlled, with no complications (Renamed from Controlled type 2 diabetes mellitus without complication) Start:17-Oct-2016 Instruction Type:Provider Instructions for Treatment How to access health informa tion online Indication:Diabetes mellitus type II, controlled, with no complications (Renamed from Controlled type 2 diabetes mellitus without complication) Start:11-Jul-2016 Instruction Type:Patient Education How to access health informa tion online - Detail Indication:Diabetes mellitus type II, controlled, with no complications (Renamed from Controlled type 2 diabetes mellitus without complication) Start:11-Jul-2016 Instruction Type:Patient Education Patient Instructions Indication:Diabetes mellitus type II, controlled, with no complications (Renamed from Controlled type 2 diabetes mellitus without complication) Start:11-Jul-2016 Instruction Type:Provider Instructions for Treatment How to access health informa tion online Indication:Flu-like symptoms Start:10-Apr-2016 Instruction Type:Patient Education How to access health informa tion online - Detail Indication:Flu-like symptoms Start:10-Apr-2016 Instruction Type:Patient Education Patient Instructions Indication:Flu-like symptoms Start:10-Apr-2016 Instruction Type:Provider Instructions for Treatment How to access health informa tion online Indication:Diabetes mellitus type II, controlled, with no complications (Renamed from Controlled type 2 diabetes mellitus without complication) Start:21-Mar-2016 Instruction Type:Patient Education How to access health informa tion online - Detail Indication:Diabetes mellitus type II, controlled, with no complications (Renamed from Controlled type 2 diabetes mellitus without complication) Start:21-Mar-2016 Instruction Type:Patient Education Patient Instructions Indication:Diabetes mellitus type II, controlled, with no complications (Renamed from Controlled type 2 diabetes mellitus without complication) Start:21-Mar-2016 Instruction Type:Provider Instructions for Treatment How to access health informa tion online Indication:Diabetes mellitus type II, controlled, with no complications (Renamed from Controlled type 2 diabetes mellitus without complication) Start:14-Dec-2015 Instruction Type:Patient Education How to access health informa tion online - Detail Indication:Diabetes mellitus type II, controlled, with no complications (Renamed from Controlled type 2 diabetes mellitus without complication) Start:14-Dec-2015 Instruction Type:Patient Education Patient Instructions Indication:Diabetes mellitus type II, controlled, with no complications (Renamed from Controlled type 2 diabetes mellitus without complication) Start:14-Dec-2015 Instruction Type:Provider Instructions for Treatment How to access health informa tion online Indication:Diabetes mellitus type 2, uncontrolled (Renamed from Uncontrolled type 2 diabetes mellitus) Start:28-Sep-2015 Instruction Type:Patient Education How to access health informa tion online - Detail Indication:Diabetes mellitus type 2, uncontrolled (Renamed from Uncontrolled type 2 diabetes mellitus) Start:28-Sep-2015 Instruction Type:Patient Education Patient Instructions Indication:Diabetes mellitus type 2, uncontrolled (Renamed from Uncontrolled type 2 diabetes mellitus) Start:28-Sep-2015 Instruction Type:Provider Instructions for Treatment Patient Instructions Indication:Diabetes mellitus type II, controlled, with no complications (Renamed from Controlled type 2 diabetes mellitus without complication) Start:14-Sep-2015 Instruction Type:Provider Instructions for Treatment [facility]; [facility] Work Phone: Instructions* Name Dates Details Patient Instructions Indication:BMI 33.0-33.9,adult Start:03-Jan-2022 Instruction Type:Provider Instructions for Treatment How to Access Health Informa tion Online using Patient Portal and [employer] Apps Indication:BMI 33.0-33.9,adult Start:03-Jan-2022 Instruction Type:Patient Education Patient Instructions Indication:Type II diabetes mellitus, well controlled Start:27-Sep-2021 Instruction Type:Provider Instructions for Treatment How to Access Health Informa tion Online using Patient Portal and [employer] Apps Indication:Type II diabetes mellitus, well controlled Start:27-Sep-2021 Instruction Type:Patient Education Patient Instructions Indication:Nonsmoker Start:24-May-2021 Instruction Type:Provider Instructions for Treatment How to Access Health Informa tion Online using Patient Portal and [employer] Apps Indication:Nonsmoker Start:24-May-2021 Instruction Type:Patient Education Patient Instructions Indication:Diabetes mellitus type II, controlled, with no complications (Renamed from Controlled type 2 diabetes mellitus without complication) Start:01-Feb-2021 Instruction Type:Provider Instructions for Treatment How to Access Health Informa tion Online using Patient Portal and [employer] Apps Indication:Diabetes mellitus type II, controlled, with no complications (Renamed from Controlled type 2 diabetes mellitus without complication) Start:01-Feb-2021 Instruction Type:Patient Education Patient Instructions Indication:BMI 30.0-30.9,adult Start:26-Oct-2020 Instruction Type:Provider Instructions for Treatment How to Access Health Informa tion Online using Patient Portal and [employer] Apps Indication:BMI 30.0-30.9,adult Start:26-Oct-2020 Instruction Type:Patient Education How to Access Health Informa tion Online using Patient Portal and [employer] Apps Indication:Nonsmoker Start:20-Jul-2020 Instruction Type:Patient Education Patient Instructions Indication:Nonsmoker Start:20-Jul-2020 Instruction Type:Provider Instructions for Treatment Patient Instructions Indication:Nonsmoker Start:13-Apr-2020 Instruction Type:Provider Instructions for Treatment How to Access Health Informa tion Online using Patient Portal and [employer] Apps Indication:Nonsmoker Start:13-Apr-2020 Instruction Type:Patient Education How to access health informa tion online Indication:Diabetes mellitus type 2, uncontrolled (Renamed from Uncontrolled type 2 diabetes mellitus) Start:25-Nov-2019 Instruction Type:Patient Education How to access health informa tion online - Detail Indication:Diabetes mellitus type 2, uncontrolled (Renamed from Uncontrolled type 2 diabetes mellitus) Start:25-Nov-2019 Instruction Type:Patient Education Patient Instructions Indication:Diabetes mellitus type 2, uncontrolled (Renamed from Uncontrolled type 2 diabetes mellitus) Start:25-Nov-2019 Instruction Type:Provider Instructions for Treatment How to access health informa tion online Indication:Diabetes mellitus type 2, uncontrolled (Renamed from Uncontrolled type 2 diabetes mellitus) Start:22-Jul-2019 Instruction Type:Patient Education How to access health informa tion online - Detail Indication:Diabetes mellitus type 2, uncontrolled (Renamed from Uncontrolled type 2 diabetes mellitus) Start:22-Jul-2019 Instruction Type:Patient Education Patient Instructions Indication:Diabetes mellitus type 2, uncontrolled (Renamed from Uncontrolled type 2 diabetes mellitus) Start:22-Jul-2019 Instruction Type:Provider Instructions for Treatment How to access health informa tion online Indication:Diabetes mellitus type II, controlled, with no complications (Renamed from Controlled type 2 diabetes mellitus without complication) Start:04-Feb-2019 Instruction Type:Patient Education How to access health informa tion online - Detail Indication:Diabetes mellitus type II, controlled, with no complications (Renamed from Controlled type 2 diabetes mellitus without complication) Start:04-Feb-2019 Instruction Type:Patient Education Patient Instructions Indication:Diabetes mellitus type II, controlled, with no complications (Renamed from Controlled type 2 diabetes mellitus without complication) Start:04-Feb-2019 Instruction Type:Provider Instructions for Treatment How to access health informa tion online Indication:Diabetes mellitus type II, controlled, with no complications (Renamed from Controlled type 2 diabetes mellitus without complication) Start:29-Oct-2018 Instruction Type:Patient Education How to access health informa tion online - Detail Indication:Diabetes mellitus type II, controlled, with no complications (Renamed from Controlled type 2 diabetes mellitus without complication) Start:29-Oct-2018 Instruction Type:Patient Education Patient Instructions Indication:Diabetes mellitus type II, controlled, with no complications (Renamed from Controlled type 2 diabetes mellitus without complication) Start:29-Oct-2018 Instruction Type:Provider Instructions for Treatment How to access health informa tion online Indication:Diabetes mellitus type II, controlled, with no complications (Renamed from Controlled type 2 diabetes mellitus without complication) Start:23-Jul-2018 Instruction Type:Patient Education How to access health informa tion online - Detail Indication:Diabetes mellitus type II, controlled, with no complications (Renamed from Controlled type 2 diabetes mellitus without complication) Start:23-Jul-2018 Instruction Type:Patient Education Patient Instructions Indication:Diabetes mellitus type II, controlled, with no complications (Renamed from Controlled type 2 diabetes mellitus without complication) Start:23-Jul-2018 Instruction Type:Provider Instructions for Treatment How to access health informa tion online Indication:Nutritional counseling Start:19-Mar-2018 Instruction Type:Patient Education How to access health informa tion online - Detail Indication:Nutritional counseling Start:19-Mar-2018 Instruction Type:Patient Education Patient Instructions Indication:Nutritional counseling Start:19-Mar-2018 Instruction Type:Provider Instructions for Treatment How to access health informa tion online Indication:BMI 30.0-30.9,adult Start:13-Nov-2017 Instruction Type:Patient Education How to access health informa tion online - Detail Indication:BMI 30.0-30.9,adult Start:13-Nov-2017 Instruction Type:Patient Education Patient Instructions Indication:BMI 30.0-30.9,adult Start:13-Nov-2017 Instruction Type:Provider Instructions for Treatment How to access health informa tion online Indication:Diabetes mellitus type II, controlled, with no complications (Renamed from Controlled type 2 diabetes mellitus without complication) Start:07-Aug-2017 Instruction Type:Patient Education How to access health informa tion online - Detail Indication:Diabetes mellitus type II, controlled, with no complications (Renamed from Controlled type 2 diabetes mellitus without complication) Start:07-Aug-2017 Instruction Type:Patient Education Patient Instructions Indication:Diabetes mellitus type II, controlled, with no complications (Renamed from Controlled type 2 diabetes mellitus without complication) Start:07-Aug-2017 Instruction Type:Provider Instructions for Treatment How to access health informa tion online Indication:Diabetes mellitus type II, controlled, with no complications (Renamed from Controlled type 2 diabetes mellitus without complication) Start:01-May-2017 Instruction Type:Patient Education How to access health informa tion online - Detail Indication:Diabetes mellitus type II, controlled, with no complications (Renamed from Controlled type 2 diabetes mellitus without complication) Start:01-May-2017 Instruction Type:Patient Education Patient Instructions Indication:Diabetes mellitus type II, controlled, with no complications (Renamed from Controlled type 2 diabetes mellitus without complication) Start:01-May-2017 Instruction Type:Provider Instructions for Treatment How to access health informa tion online Indication:BMI 32.0-32.9,adult Start:23-Jan-2017 Instruction Type:Patient Education How to access health informa tion online - Detail Indication:BMI 32.0-32.9,adult Start:23-Jan-2017 Instruction Type:Patient Education Patient Instructions Indication:BMI 32.0-32.9,adult Start:23-Jan-2017 Instruction Type:Provider Instructions for Treatment How to access health informa tion online Indication:Diabetes mellitus type II, controlled, with no complications (Renamed from Controlled type 2 diabetes mellitus without complication) Start:17-Oct-2016 Instruction Type:Patient Education How to access health informa tion online - Detail Indication:Diabetes mellitus type II, controlled, with no complications (Renamed from Controlled type 2 diabetes mellitus without complication) Start:17-Oct-2016 Instruction Type:Patient Education Patient Instructions Indication:Diabetes mellitus type II, controlled, with no complications (Renamed from Controlled type 2 diabetes mellitus without complication) Start:17-Oct-2016 Instruction Type:Provider Instructions for Treatment How to access health informa tion online Indication:Diabetes mellitus type II, controlled, with no complications (Renamed from Controlled type 2 diabetes mellitus without complication) Start:11-Jul-2016 Instruction Type:Patient Education How to access health informa tion online - Detail Indication:Diabetes mellitus type II, controlled, with no complications (Renamed from Controlled type 2 diabetes mellitus without complication) Start:11-Jul-2016 Instruction Type:Patient Education Patient Instructions Indication:Diabetes mellitus type II, controlled, with no complications (Renamed from Controlled type 2 diabetes mellitus without complication) Start:11-Jul-2016 Instruction Type:Provider Instructions for Treatment How to access health informa tion online Indication:Flu-like symptoms Start:10-Apr-2016 Instruction Type:Patient Education How to access health informa tion online - Detail Indication:Flu-like symptoms Start:10-Apr-2016 Instruction Type:Patient Education Patient Instructions Indication:Flu-like symptoms Start:10-Apr-2016 Instruction Type:Provider Instructions for Treatment How to access health informa tion online Indication:Diabetes mellitus type II, controlled, with no complications (Renamed from Controlled type 2 diabetes mellitus without complication) Start:21-Mar-2016 Instruction Type:Patient Education How to access health informa tion online - Detail Indication:Diabetes mellitus type II, controlled, with no complications (Renamed from Controlled type 2 diabetes mellitus without complication) Start:21-Mar-2016 Instruction Type:Patient Education Patient Instructions Indication:Diabetes mellitus type II, controlled, with no complications (Renamed from Controlled type 2 diabetes mellitus without complication) Start:21-Mar-2016 Instruction Type:Provider Instructions for Treatment How to access health informa tion online Indication:Diabetes mellitus type II, controlled, with no complications (Renamed from Controlled type 2 diabetes mellitus without complication) Start:14-Dec-2015 Instruction Type:Patient Education How to access health informa tion online - Detail Indication:Diabetes mellitus type II, controlled, with no complications (Renamed from Controlled type 2 diabetes mellitus without complication) Start:14-Dec-2015 Instruction Type:Patient Education Patient Instructions Indication:Diabetes mellitus type II, controlled, with no complications (Renamed from Controlled type 2 diabetes mellitus without complication) Start:14-Dec-2015 Instruction Type:Provider Instructions for Treatment How to access health informa tion online Indication:Diabetes mellitus type 2, uncontrolled (Renamed from Uncontrolled type 2 diabetes mellitus) Start:28-Sep-2015 Instruction Type:Patient Education How to access health informa tion online - Detail Indication:Diabetes mellitus type 2, uncontrolled (Renamed from Uncontrolled type 2 diabetes mellitus) Start:28-Sep-2015 Instruction Type:Patient Education Patient Instructions Indication:Diabetes mellitus type 2, uncontrolled (Renamed from Uncontrolled type 2 diabetes mellitus) Start:28-Sep-2015 Instruction Type:Provider Instructions for Treatment Patient Instructions Indication:Diabetes mellitus type II, controlled, with no complications (Renamed from Controlled type 2 diabetes mellitus without complication) Start:14-Sep-2015 Instruction Type:Provider Instructions for Treatment [facility]; [facility] Work Phone: Instructions* Name Dates Details Patient Instructions Indication:BMI 33.0-33.9,adult Start:03-Jan-2022 Instruction Type:Provider Instructions for Treatment How to Access Health Informa tion Online using Patient Portal and [employer] Apps Indication:BMI 33.0-33.9,adult Start:03-Jan-2022 Instruction Type:Patient Education Patient Instructions Indication:Type II diabetes mellitus, well controlled Start:27-Sep-2021 Instruction Type:Provider Instructions for Treatment How to Access Health Informa tion Online using Patient Portal and [employer] Apps Indication:Type II diabetes mellitus, well controlled Start:27-Sep-2021 Instruction Type:Patient Education Patient Instructions Indication:Nonsmoker Start:24-May-2021 Instruction Type:Provider Instructions for Treatment How to Access Health Informa tion Online using Patient Portal and [employer] Apps Indication:Nonsmoker Start:24-May-2021 Instruction Type:Patient Education Patient Instructions Indication:Diabetes mellitus type II, controlled, with no complications (Renamed from Controlled type 2 diabetes mellitus without complication) Start:01-Feb-2021 Instruction Type:Provider Instructions for Treatment How to Access Health Informa tion Online using Patient Portal and [employer] Apps Indication:Diabetes mellitus type II, controlled, with no complications (Renamed from Controlled type 2 diabetes mellitus without complication) Start:01-Feb-2021 Instruction Type:Patient Education Patient Instructions Indication:BMI 30.0-30.9,adult Start:26-Oct-2020 Instruction Type:Provider Instructions for Treatment How to Access Health Informa tion Online using Patient Portal and [employer] Apps Indication:BMI 30.0-30.9,adult Start:26-Oct-2020 Instruction Type:Patient Education How to Access Health Informa tion Online using Patient Portal and [employer] Apps Indication:Nonsmoker Start:20-Jul-2020 Instruction Type:Patient Education Patient Instructions Indication:Nonsmoker Start:20-Jul-2020 Instruction Type:Provider Instructions for Treatment Patient Instructions Indication:Nonsmoker Start:13-Apr-2020 Instruction Type:Provider Instructions for Treatment How to Access Health Informa tion Online using Patient Portal and [employer] Apps Indication:Nonsmoker Start:13-Apr-2020 Instruction Type:Patient Education How to access health informa tion online Indication:Diabetes mellitus type 2, uncontrolled (Renamed from Uncontrolled type 2 diabetes mellitus) Start:25-Nov-2019 Instruction Type:Patient Education How to access health informa tion online - Detail Indication:Diabetes mellitus type 2, uncontrolled (Renamed from Uncontrolled type 2 diabetes mellitus) Start:25-Nov-2019 Instruction Type:Patient Education Patient Instructions Indication:Diabetes mellitus type 2, uncontrolled (Renamed from Uncontrolled type 2 diabetes mellitus) Start:25-Nov-2019 Instruction Type:Provider Instructions for Treatment How to access health informa tion online Indication:Diabetes mellitus type 2, uncontrolled (Renamed from Uncontrolled type 2 diabetes mellitus) Start:22-Jul-2019 Instruction Type:Patient Education How to access health informa tion online - Detail Indication:Diabetes mellitus type 2, uncontrolled (Renamed from Uncontrolled type 2 diabetes mellitus) Start:22-Jul-2019 Instruction Type:Patient Education Patient Instructions Indication:Diabetes mellitus type 2, uncontrolled (Renamed from Uncontrolled type 2 diabetes mellitus) Start:22-Jul-2019 Instruction Type:Provider Instructions for Treatment How to access health informa tion online Indication:Diabetes mellitus type II, controlled, with no complications (Renamed from Controlled type 2 diabetes mellitus without complication) Start:04-Feb-2019 Instruction Type:Patient Education How to access health informa tion online - Detail Indication:Diabetes mellitus type II, controlled, with no complications (Renamed from Controlled type 2 diabetes mellitus without complication) Start:04-Feb-2019 Instruction Type:Patient Education Patient Instructions Indication:Diabetes mellitus type II, controlled, with no complications (Renamed from Controlled type 2 diabetes mellitus without complication) Start:04-Feb-2019 Instruction Type:Provider Instructions for Treatment How to access health informa tion online Indication:Diabetes mellitus type II, controlled, with no complications (Renamed from Controlled type 2 diabetes mellitus without complication) Start:29-Oct-2018 Instruction Type:Patient Education How to access health informa tion online - Detail Indication:Diabetes mellitus type II, controlled, with no complications (Renamed from Controlled type 2 diabetes mellitus without complication) Start:29-Oct-2018 Instruction Type:Patient Education Patient Instructions Indication:Diabetes mellitus type II, controlled, with no complications (Renamed from Controlled type 2 diabetes mellitus without complication) Start:29-Oct-2018 Instruction Type:Provider Instructions for Treatment How to access health informa tion online Indication:Diabetes mellitus type II, controlled, with no complications (Renamed from Controlled type 2 diabetes mellitus without complication) Start:23-Jul-2018 Instruction Type:Patient Education How to access health informa tion online - Detail Indication:Diabetes mellitus type II, controlled, with no complications (Renamed from Controlled type 2 diabetes mellitus without complication) Start:23-Jul-2018 Instruction Type:Patient Education Patient Instructions Indication:Diabetes mellitus type II, controlled, with no complications (Renamed from Controlled type 2 diabetes mellitus without complication) Start:23-Jul-2018 Instruction Type:Provider Instructions for Treatment How to access health informa tion online Indication:Nutritional counseling Start:19-Mar-2018 Instruction Type:Patient Education How to access health informa tion online - Detail Indication:Nutritional counseling Start:19-Mar-2018 Instruction Type:Patient Education Patient Instructions Indication:Nutritional counseling Start:19-Mar-2018 Instruction Type:Provider Instructions for Treatment How to access health informa tion online Indication:BMI 30.0-30.9,adult Start:13-Nov-2017 Instruction Type:Patient Education How to access health informa tion online - Detail Indication:BMI 30.0-30.9,adult Start:13-Nov-2017 Instruction Type:Patient Education Patient Instructions Indication:BMI 30.0-30.9,adult Start:13-Nov-2017 Instruction Type:Provider Instructions for Treatment How to access health informa tion online Indication:Diabetes mellitus type II, controlled, with no complications (Renamed from Controlled type 2 diabetes mellitus without complication) Start:07-Aug-2017 Instruction Type:Patient Education How to access health informa tion online - Detail Indication:Diabetes mellitus type II, controlled, with no complications (Renamed from Controlled type 2 diabetes mellitus without complication) Start:07-Aug-2017 Instruction Type:Patient Education Patient Instructions Indication:Diabetes mellitus type II, controlled, with no complications (Renamed from Controlled type 2 diabetes mellitus without complication) Start:07-Aug-2017 Instruction Type:Provider Instructions for Treatment How to access health informa tion online Indication:Diabetes mellitus type II, controlled, with no complications (Renamed from Controlled type 2 diabetes mellitus without complication) Start:01-May-2017 Instruction Type:Patient Education How to access health informa tion online - Detail Indication:Diabetes mellitus type II, controlled, with no complications (Renamed from Controlled type 2 diabetes mellitus without complication) Start:01-May-2017 Instruction Type:Patient Education Patient Instructions Indication:Diabetes mellitus type II, controlled, with no complications (Renamed from Controlled type 2 diabetes mellitus without complication) Start:01-May-2017 Instruction Type:Provider Instructions for Treatment How to access health informa tion online Indication:BMI 32.0-32.9,adult Start:23-Jan-2017 Instruction Type:Patient Education How to access health informa tion online - Detail Indication:BMI 32.0-32.9,adult Start:23-Jan-2017 Instruction Type:Patient Education Patient Instructions Indication:BMI 32.0-32.9,adult Start:23-Jan-2017 Instruction Type:Provider Instructions for Treatment How to access health informa tion online Indication:Diabetes mellitus type II, controlled, with no complications (Renamed from Controlled type 2 diabetes mellitus without complication) Start:17-Oct-2016 Instruction Type:Patient Education How to access health informa tion online - Detail Indication:Diabetes mellitus type II, controlled, with no complications (Renamed from Controlled type 2 diabetes mellitus without complication) Start:17-Oct-2016 Instruction Type:Patient Education Patient Instructions Indication:Diabetes mellitus type II, controlled, with no complications (Renamed from Controlled type 2 diabetes mellitus without complication) Start:17-Oct-2016 Instruction Type:Provider Instructions for Treatment How to access health informa tion online Indication:Diabetes mellitus type II, controlled, with no complications (Renamed from Controlled type 2 diabetes mellitus without complication) Start:11-Jul-2016 Instruction Type:Patient Education How to access health informa tion online - Detail Indication:Diabetes mellitus type II, controlled, with no complications (Renamed from Controlled type 2 diabetes mellitus without complication) Start:11-Jul-2016 Instruction Type:Patient Education Patient Instructions Indication:Diabetes mellitus type II, controlled, with no complications (Renamed from Controlled type 2 diabetes mellitus without complication) Start:11-Jul-2016 Instruction Type:Provider Instructions for Treatment How to access health informa tion online Indication:Flu-like symptoms Start:10-Apr-2016 Instruction Type:Patient Education How to access health informa tion online - Detail Indication:Flu-like symptoms Start:10-Apr-2016 Instruction Type:Patient Education Patient Instructions Indication:Flu-like symptoms Start:10-Apr-2016 Instruction Type:Provider Instructions for Treatment How to access health informa tion online Indication:Diabetes mellitus type II, controlled, with no complications (Renamed from Controlled type 2 diabetes mellitus without complication) Start:21-Mar-2016 Instruction Type:Patient Education How to access health informa tion online - Detail Indication:Diabetes mellitus type II, controlled, with no complications (Renamed from Controlled type 2 diabetes mellitus without complication) Start:21-Mar-2016 Instruction Type:Patient Education Patient Instructions Indication:Diabetes mellitus type II, controlled, with no complications (Renamed from Controlled type 2 diabetes mellitus without complication) Start:21-Mar-2016 Instruction Type:Provider Instructions for Treatment How to access health informa tion online Indication:Diabetes mellitus type II, controlled, with no complications (Renamed from Controlled type 2 diabetes mellitus without complication) Start:14-Dec-2015 Instruction Type:Patient Education How to access health informa tion online - Detail Indication:Diabetes mellitus type II, controlled, with no complications (Renamed from Controlled type 2 diabetes mellitus without complication) Start:14-Dec-2015 Instruction Type:Patient Education Patient Instructions Indication:Diabetes mellitus type II, controlled, with no complications (Renamed from Controlled type 2 diabetes mellitus without complication) Start:14-Dec-2015 Instruction Type:Provider Instructions for Treatment How to access health informa tion online Indication:Diabetes mellitus type 2, uncontrolled (Renamed from Uncontrolled type 2 diabetes mellitus) Start:28-Sep-2015 Instruction Type:Patient Education How to access health informa tion online - Detail Indication:Diabetes mellitus type 2, uncontrolled (Renamed from Uncontrolled type 2 diabetes mellitus) Start:28-Sep-2015 Instruction Type:Patient Education Patient Instructions Indication:Diabetes mellitus type 2, uncontrolled (Renamed from Uncontrolled type 2 diabetes mellitus) Start:28-Sep-2015 Instruction Type:Provider Instructions for Treatment Patient Instructions Indication:Diabetes mellitus type II, controlled, with no complications (Renamed from Controlled type 2 diabetes mellitus without complication) Start:14-Sep-2015 Instruction Type:Provider Instructions for Treatment [facility]; [facility] Work Phone: Instructions* Name Dates Details Patient Instructions Indication:BMI 34.0-34.9,adult Start:11-Apr-2022 Instruction Type:Provider Instructions for Treatment How to Access Health Informa tion Online using Patient Portal and [employer] Apps Indication:BMI 34.0-34.9,adult Start:11-Apr-2022 Instruction Type:Patient Education Patient Instructions Indication:BMI 33.0-33.9,adult Start:03-Jan-2022 Instruction Type:Provider Instructions for Treatment How to Access Health Informa tion Online using Patient Portal and [employer] Apps Indication:BMI 33.0-33.9,adult Start:03-Jan-2022 Instruction Type:Patient Education Patient Instructions Indication:Type II diabetes mellitus, well controlled Start:27-Sep-2021 Instruction Type:Provider Instructions for Treatment How to Access Health Informa tion Online using Patient Portal and [employer] Apps Indication:Type II diabetes mellitus, well controlled Start:27-Sep-2021 Instruction Type:Patient Education Patient Instructions Indication:Nonsmoker Start:24-May-2021 Instruction Type:Provider Instructions for Treatment How to Access Health Informa tion Online using Patient Portal and [employer] Apps Indication:Nonsmoker Start:24-May-2021 Instruction Type:Patient Education Patient Instructions Indication:Diabetes mellitus type II, controlled, with no complications (Renamed from Controlled type 2 diabetes mellitus without complication) Start:01-Feb-2021 Instruction Type:Provider Instructions for Treatment How to Access Health Informa tion Online using Patient Portal and [employer] Apps Indication:Diabetes mellitus type II, controlled, with no complications (Renamed from Controlled type 2 diabetes mellitus without complication) Start:01-Feb-2021 Instruction Type:Patient Education Patient Instructions Indication:BMI 30.0-30.9,adult Start:26-Oct-2020 Instruction Type:Provider Instructions for Treatment How to Access Health Informa tion Online using Patient Portal and [employer] Apps Indication:BMI 30.0-30.9,adult Start:26-Oct-2020 Instruction Type:Patient Education How to Access Health Informa tion Online using Patient Portal and [employer] Apps Indication:Nonsmoker Start:20-Jul-2020 Instruction Type:Patient Education Patient Instructions Indication:Nonsmoker Start:20-Jul-2020 Instruction Type:Provider Instructions for Treatment Patient Instructions Indication:Nonsmoker Start:13-Apr-2020 Instruction Type:Provider Instructions for Treatment How to Access Health Informa tion Online using Patient Portal and [employer] Apps Indication:Nonsmoker Start:13-Apr-2020 Instruction Type:Patient Education How to access health informa tion online Indication:Diabetes mellitus type 2, uncontrolled (Renamed from Uncontrolled type 2 diabetes mellitus) Start:25-Nov-2019 Instruction Type:Patient Education How to access health informa tion online - Detail Indication:Diabetes mellitus type 2, uncontrolled (Renamed from Uncontrolled type 2 diabetes mellitus) Start:25-Nov-2019 Instruction Type:Patient Education Patient Instructions Indication:Diabetes mellitus type 2, uncontrolled (Renamed from Uncontrolled type 2 diabetes mellitus) Start:25-Nov-2019 Instruction Type:Provider Instructions for Treatment How to access health informa tion online Indication:Diabetes mellitus type 2, uncontrolled (Renamed from Uncontrolled type 2 diabetes mellitus) Start:22-Jul-2019 Instruction Type:Patient Education How to access health informa tion online - Detail Indication:Diabetes mellitus type 2, uncontrolled (Renamed from Uncontrolled type 2 diabetes mellitus) Start:22-Jul-2019 Instruction Type:Patient Education Patient Instructions Indication:Diabetes mellitus type 2, uncontrolled (Renamed from Uncontrolled type 2 diabetes mellitus) Start:22-Jul-2019 Instruction Type:Provider Instructions for Treatment How to access health informa tion online Indication:Diabetes mellitus type II, controlled, with no complications (Renamed from Controlled type 2 diabetes mellitus without complication) Start:04-Feb-2019 Instruction Type:Patient Education How to access health informa tion online - Detail Indication:Diabetes mellitus type II, controlled, with no complications (Renamed from Controlled type 2 diabetes mellitus without complication) Start:04-Feb-2019 Instruction Type:Patient Education Patient Instructions Indication:Diabetes mellitus type II, controlled, with no complications (Renamed from Controlled type 2 diabetes mellitus without complication) Start:04-Feb-2019 Instruction Type:Provider Instructions for Treatment How to access health informa tion online Indication:Diabetes mellitus type II, controlled, with no complications (Renamed from Controlled type 2 diabetes mellitus without complication) Start:29-Oct-2018 Instruction Type:Patient Education How to access health informa tion online - Detail Indication:Diabetes mellitus type II, controlled, with no complications (Renamed from Controlled type 2 diabetes mellitus without complication) Start:29-Oct-2018 Instruction Type:Patient Education Patient Instructions Indication:Diabetes mellitus type II, controlled, with no complications (Renamed from Controlled type 2 diabetes mellitus without complication) Start:29-Oct-2018 Instruction Type:Provider Instructions for Treatment How to access health informa tion online Indication:Diabetes mellitus type II, controlled, with no complications (Renamed from Controlled type 2 diabetes mellitus without complication) Start:23-Jul-2018 Instruction Type:Patient Education How to access health informa tion online - Detail Indication:Diabetes mellitus type II, controlled, with no complications (Renamed from Controlled type 2 diabetes mellitus without complication) Start:23-Jul-2018 Instruction Type:Patient Education Patient Instructions Indication:Diabetes mellitus type II, controlled, with no complications (Renamed from Controlled type 2 diabetes mellitus without complication) Start:23-Jul-2018 Instruction Type:Provider Instructions for Treatment How to access health informa tion online Indication:Nutritional counseling Start:19-Mar-2018 Instruction Type:Patient Education How to access health informa tion online - Detail Indication:Nutritional counseling Start:19-Mar-2018 Instruction Type:Patient Education Patient Instructions Indication:Nutritional counseling Start:19-Mar-2018 Instruction Type:Provider Instructions for Treatment How to access health informa tion online Indication:BMI 30.0-30.9,adult Start:13-Nov-2017 Instruction Type:Patient Education How to access health informa tion online - Detail Indication:BMI 30.0-30.9,adult Start:13-Nov-2017 Instruction Type:Patient Education Patient Instructions Indication:BMI 30.0-30.9,adult Start:13-Nov-2017 Instruction Type:Provider Instructions for Treatment How to access health informa tion online Indication:Diabetes mellitus type II, controlled, with no complications (Renamed from Controlled type 2 diabetes mellitus without complication) Start:07-Aug-2017 Instruction Type:Patient Education How to access health informa tion online - Detail Indication:Diabetes mellitus type II, controlled, with no complications (Renamed from Controlled type 2 diabetes mellitus without complication) Start:07-Aug-2017 Instruction Type:Patient Education Patient Instructions Indication:Diabetes mellitus type II, controlled, with no complications (Renamed from Controlled type 2 diabetes mellitus without complication) Start:07-Aug-2017 Instruction Type:Provider Instructions for Treatment How to access health informa tion online Indication:Diabetes mellitus type II, controlled, with no complications (Renamed from Controlled type 2 diabetes mellitus without complication) Start:01-May-2017 Instruction Type:Patient Education How to access health informa tion online - Detail Indication:Diabetes mellitus type II, controlled, with no complications (Renamed from Controlled type 2 diabetes mellitus without complication) Start:01-May-2017 Instruction Type:Patient Education Patient Instructions Indication:Diabetes mellitus type II, controlled, with no complications (Renamed from Controlled type 2 diabetes mellitus without complication) Start:01-May-2017 Instruction Type:Provider Instructions for Treatment How to access health informa tion online Indication:BMI 32.0-32.9,adult Start:23-Jan-2017 Instruction Type:Patient Education How to access health informa tion online - Detail Indication:BMI 32.0-32.9,adult Start:23-Jan-2017 Instruction Type:Patient Education Patient Instructions Indication:BMI 32.0-32.9,adult Start:23-Jan-2017 Instruction Type:Provider Instructions for Treatment How to access health informa tion online Indication:Diabetes mellitus type II, controlled, with no complications (Renamed from Controlled type 2 diabetes mellitus without complication) Start:17-Oct-2016 Instruction Type:Patient Education How to access health informa tion online - Detail Indication:Diabetes mellitus type II, controlled, with no complications (Renamed from Controlled type 2 diabetes mellitus without complication) Start:17-Oct-2016 Instruction Type:Patient Education Patient Instructions Indication:Diabetes mellitus type II, controlled, with no complications (Renamed from Controlled type 2 diabetes mellitus without complication) Start:17-Oct-2016 Instruction Type:Provider Instructions for Treatment How to access health informa tion online Indication:Diabetes mellitus type II, controlled, with no complications (Renamed from Controlled type 2 diabetes mellitus without complication) Start:11-Jul-2016 Instruction Type:Patient Education How to access health informa tion online - Detail Indication:Diabetes mellitus type II, controlled, with no complications (Renamed from Controlled type 2 diabetes mellitus without complication) Start:11-Jul-2016 Instruction Type:Patient Education Patient Instructions Indication:Diabetes mellitus type II, controlled, with no complications (Renamed from Controlled type 2 diabetes mellitus without complication) Start:11-Jul-2016 Instruction Type:Provider Instructions for Treatment How to access health informa tion online Indication:Flu-like symptoms Start:10-Apr-2016 Instruction Type:Patient Education How to access health informa tion online - Detail Indication:Flu-like symptoms Start:10-Apr-2016 Instruction Type:Patient Education Patient Instructions Indication:Flu-like symptoms Start:10-Apr-2016 Instruction Type:Provider Instructions for Treatment How to access health informa tion online Indication:Diabetes mellitus type II, controlled, with no complications (Renamed from Controlled type 2 diabetes mellitus without complication) Start:21-Mar-2016 Instruction Type:Patient Education How to access health informa tion online - Detail Indication:Diabetes mellitus type II, controlled, with no complications (Renamed from Controlled type 2 diabetes mellitus without complication) Start:21-Mar-2016 Instruction Type:Patient Education Patient Instructions Indication:Diabetes mellitus type II, controlled, with no complications (Renamed from Controlled type 2 diabetes mellitus without complication) Start:21-Mar-2016 Instruction Type:Provider Instructions for Treatment How to access health informa tion online Indication:Diabetes mellitus type II, controlled, with no complications (Renamed from Controlled type 2 diabetes mellitus without complication) Start:14-Dec-2015 Instruction Type:Patient Education How to access health informa tion online - Detail Indication:Diabetes mellitus type II, controlled, with no complications (Renamed from Controlled type 2 diabetes mellitus without complication) Start:14-Dec-2015 Instruction Type:Patient Education Patient Instructions Indication:Diabetes mellitus type II, controlled, with no complications (Renamed from Controlled type 2 diabetes mellitus without complication) Start:14-Dec-2015 Instruction Type:Provider Instructions for Treatment How to access health informa tion online Indication:Diabetes mellitus type 2, uncontrolled (Renamed from Uncontrolled type 2 diabetes mellitus) Start:28-Sep-2015 Instruction Type:Patient Education How to access health informa tion online - Detail Indication:Diabetes mellitus type 2, uncontrolled (Renamed from Uncontrolled type 2 diabetes mellitus) Start:28-Sep-2015 Instruction Type:Patient Education Patient Instructions Indication:Diabetes mellitus type 2, uncontrolled (Renamed from Uncontrolled type 2 diabetes mellitus) Start:28-Sep-2015 Instruction Type:Provider Instructions for Treatment Patient Instructions Indication:Diabetes mellitus type II, controlled, with no complications (Renamed from Controlled type 2 diabetes mellitus without complication) Start:14-Sep-2015 Instruction Type:Provider Instructions for Treatment [facility]; [facility] Work Phone: Instructions* Name Dates Details Patient Instructions Indication:BMI 34.0-34.9,adult Start:11-Apr-2022 Instruction Type:Provider Instructions for Treatment How to Access Health Informa tion Online using Patient Portal and [employer] Apps Indication:BMI 34.0-34.9,adult Start:11-Apr-2022 Instruction Type:Patient Education Patient Instructions Indication:BMI 33.0-33.9,adult Start:03-Jan-2022 Instruction Type:Provider Instructions for Treatment How to Access Health Informa tion Online using Patient Portal and [employer] Apps Indication:BMI 33.0-33.9,adult Start:03-Jan-2022 Instruction Type:Patient Education Patient Instructions Indication:Type II diabetes mellitus, well controlled Start:27-Sep-2021 Instruction Type:Provider Instructions for Treatment How to Access Health Informa tion Online using Patient Portal and [employer] Apps Indication:Type II diabetes mellitus, well controlled Start:27-Sep-2021 Instruction Type:Patient Education Patient Instructions Indication:Nonsmoker Start:24-May-2021 Instruction Type:Provider Instructions for Treatment How to Access Health Informa tion Online using Patient Portal and [employer] Apps Indication:Nonsmoker Start:24-May-2021 Instruction Type:Patient Education Patient Instructions Indication:Diabetes mellitus type II, controlled, with no complications (Renamed from Controlled type 2 diabetes mellitus without complication) Start:01-Feb-2021 Instruction Type:Provider Instructions for Treatment How to Access Health Informa tion Online using Patient Portal and [employer] Apps Indication:Diabetes mellitus type II, controlled, with no complications (Renamed from Controlled type 2 diabetes mellitus without complication) Start:01-Feb-2021 Instruction Type:Patient Education Patient Instructions Indication:BMI 30.0-30.9,adult Start:26-Oct-2020 Instruction Type:Provider Instructions for Treatment How to Access Health Informa tion Online using Patient Portal and [employer] Apps Indication:BMI 30.0-30.9,adult Start:26-Oct-2020 Instruction Type:Patient Education How to Access Health Informa tion Online using Patient Portal and [employer] Apps Indication:Nonsmoker Start:20-Jul-2020 Instruction Type:Patient Education Patient Instructions Indication:Nonsmoker Start:20-Jul-2020 Instruction Type:Provider Instructions for Treatment Patient Instructions Indication:Nonsmoker Start:13-Apr-2020 Instruction Type:Provider Instructions for Treatment How to Access Health Informa tion Online using Patient Portal and [employer] Apps Indication:Nonsmoker Start:13-Apr-2020 Instruction Type:Patient Education How to access health informa tion online Indication:Diabetes mellitus type 2, uncontrolled (Renamed from Uncontrolled type 2 diabetes mellitus) Start:25-Nov-2019 Instruction Type:Patient Education How to access health informa tion online - Detail Indication:Diabetes mellitus type 2, uncontrolled (Renamed from Uncontrolled type 2 diabetes mellitus) Start:25-Nov-2019 Instruction Type:Patient Education Patient Instructions Indication:Diabetes mellitus type 2, uncontrolled (Renamed from Uncontrolled type 2 diabetes mellitus) Start:25-Nov-2019 Instruction Type:Provider Instructions for Treatment How to access health informa tion online Indication:Diabetes mellitus type 2, uncontrolled (Renamed from Uncontrolled type 2 diabetes mellitus) Start:22-Jul-2019 Instruction Type:Patient Education How to access health informa tion online - Detail Indication:Diabetes mellitus type 2, uncontrolled (Renamed from Uncontrolled type 2 diabetes mellitus) Start:22-Jul-2019 Instruction Type:Patient Education Patient Instructions Indication:Diabetes mellitus type 2, uncontrolled (Renamed from Uncontrolled type 2 diabetes mellitus) Start:22-Jul-2019 Instruction Type:Provider Instructions for Treatment How to access health informa tion online Indication:Diabetes mellitus type II, controlled, with no complications (Renamed from Controlled type 2 diabetes mellitus without complication) Start:04-Feb-2019 Instruction Type:Patient Education How to access health informa tion online - Detail Indication:Diabetes mellitus type II, controlled, with no complications (Renamed from Controlled type 2 diabetes mellitus without complication) Start:04-Feb-2019 Instruction Type:Patient Education Patient Instructions Indication:Diabetes mellitus type II, controlled, with no complications (Renamed from Controlled type 2 diabetes mellitus without complication) Start:04-Feb-2019 Instruction Type:Provider Instructions for Treatment How to access health informa tion online Indication:Diabetes mellitus type II, controlled, with no complications (Renamed from Controlled type 2 diabetes mellitus without complication) Start:29-Oct-2018 Instruction Type:Patient Education How to access health informa tion online - Detail Indication:Diabetes mellitus type II, controlled, with no complications (Renamed from Controlled type 2 diabetes mellitus without complication) Start:29-Oct-2018 Instruction Type:Patient Education Patient Instructions Indication:Diabetes mellitus type II, controlled, with no complications (Renamed from Controlled type 2 diabetes mellitus without complication) Start:29-Oct-2018 Instruction Type:Provider Instructions for Treatment How to access health informa tion online Indication:Diabetes mellitus type II, controlled, with no complications (Renamed from Controlled type 2 diabetes mellitus without complication) Start:23-Jul-2018 Instruction Type:Patient Education How to access health informa tion online - Detail Indication:Diabetes mellitus type II, controlled, with no complications (Renamed from Controlled type 2 diabetes mellitus without complication) Start:23-Jul-2018 Instruction Type:Patient Education Patient Instructions Indication:Diabetes mellitus type II, controlled, with no complications (Renamed from Controlled type 2 diabetes mellitus without complication) Start:23-Jul-2018 Instruction Type:Provider Instructions for Treatment How to access health informa tion online Indication:Nutritional counseling Start:19-Mar-2018 Instruction Type:Patient Education How to access health informa tion online - Detail Indication:Nutritional counseling Start:19-Mar-2018 Instruction Type:Patient Education Patient Instructions Indication:Nutritional counseling Start:19-Mar-2018 Instruction Type:Provider Instructions for Treatment How to access health informa tion online Indication:BMI 30.0-30.9,adult Start:13-Nov-2017 Instruction Type:Patient Education How to access health informa tion online - Detail Indication:BMI 30.0-30.9,adult Start:13-Nov-2017 Instruction Type:Patient Education Patient Instructions Indication:BMI 30.0-30.9,adult Start:13-Nov-2017 Instruction Type:Provider Instructions for Treatment How to access health informa tion online Indication:Diabetes mellitus type II, controlled, with no complications (Renamed from Controlled type 2 diabetes mellitus without complication) Start:07-Aug-2017 Instruction Type:Patient Education How to access health informa tion online - Detail Indication:Diabetes mellitus type II, controlled, with no complications (Renamed from Controlled type 2 diabetes mellitus without complication) Start:07-Aug-2017 Instruction Type:Patient Education Patient Instructions Indication:Diabetes mellitus type II, controlled, with no complications (Renamed from Controlled type 2 diabetes mellitus without complication) Start:07-Aug-2017 Instruction Type:Provider Instructions for Treatment How to access health informa tion online Indication:Diabetes mellitus type II, controlled, with no complications (Renamed from Controlled type 2 diabetes mellitus without complication) Start:01-May-2017 Instruction Type:Patient Education How to access health informa tion online - Detail Indication:Diabetes mellitus type II, controlled, with no complications (Renamed from Controlled type 2 diabetes mellitus without complication) Start:01-May-2017 Instruction Type:Patient Education Patient Instructions Indication:Diabetes mellitus type II, controlled, with no complications (Renamed from Controlled type 2 diabetes mellitus without complication) Start:01-May-2017 Instruction Type:Provider Instructions for Treatment How to access health informa tion online Indication:BMI 32.0-32.9,adult Start:23-Jan-2017 Instruction Type:Patient Education How to access health informa tion online - Detail Indication:BMI 32.0-32.9,adult Start:23-Jan-2017 Instruction Type:Patient Education Patient Instructions Indication:BMI 32.0-32.9,adult Start:23-Jan-2017 Instruction Type:Provider Instructions for Treatment How to access health informa tion online Indication:Diabetes mellitus type II, controlled, with no complications (Renamed from Controlled type 2 diabetes mellitus without complication) Start:17-Oct-2016 Instruction Type:Patient Education How to access health informa tion online - Detail Indication:Diabetes mellitus type II, controlled, with no complications (Renamed from Controlled type 2 diabetes mellitus without complication) Start:17-Oct-2016 Instruction Type:Patient Education Patient Instructions Indication:Diabetes mellitus type II, controlled, with no complications (Renamed from Controlled type 2 diabetes mellitus without complication) Start:17-Oct-2016 Instruction Type:Provider Instructions for Treatment How to access health informa tion online Indication:Diabetes mellitus type II, controlled, with no complications (Renamed from Controlled type 2 diabetes mellitus without complication) Start:11-Jul-2016 Instruction Type:Patient Education How to access health informa tion online - Detail Indication:Diabetes mellitus type II, controlled, with no complications (Renamed from Controlled type 2 diabetes mellitus without complication) Start:11-Jul-2016 Instruction Type:Patient Education Patient Instructions Indication:Diabetes mellitus type II, controlled, with no complications (Renamed from Controlled type 2 diabetes mellitus without complication) Start:11-Jul-2016 Instruction Type:Provider Instructions for Treatment How to access health informa tion online Indication:Flu-like symptoms Start:10-Apr-2016 Instruction Type:Patient Education How to access health informa tion online - Detail Indication:Flu-like symptoms Start:10-Apr-2016 Instruction Type:Patient Education Patient Instructions Indication:Flu-like symptoms Start:10-Apr-2016 Instruction Type:Provider Instructions for Treatment How to access health informa tion online Indication:Diabetes mellitus type II, controlled, with no complications (Renamed from Controlled type 2 diabetes mellitus without complication) Start:21-Mar-2016 Instruction Type:Patient Education How to access health informa tion online - Detail Indication:Diabetes mellitus type II, controlled, with no complications (Renamed from Controlled type 2 diabetes mellitus without complication) Start:21-Mar-2016 Instruction Type:Patient Education Patient Instructions Indication:Diabetes mellitus type II, controlled, with no complications (Renamed from Controlled type 2 diabetes mellitus without complication) Start:21-Mar-2016 Instruction Type:Provider Instructions for Treatment How to access health informa tion online Indication:Diabetes mellitus type II, controlled, with no complications (Renamed from Controlled type 2 diabetes mellitus without complication) Start:14-Dec-2015 Instruction Type:Patient Education How to access health informa tion online - Detail Indication:Diabetes mellitus type II, controlled, with no complications (Renamed from Controlled type 2 diabetes mellitus without complication) Start:14-Dec-2015 Instruction Type:Patient Education Patient Instructions Indication:Diabetes mellitus type II, controlled, with no complications (Renamed from Controlled type 2 diabetes mellitus without complication) Start:14-Dec-2015 Instruction Type:Provider Instructions for Treatment How to access health informa tion online Indication:Diabetes mellitus type 2, uncontrolled (Renamed from Uncontrolled type 2 diabetes mellitus) Start:28-Sep-2015 Instruction Type:Patient Education How to access health informa tion online - Detail Indication:Diabetes mellitus type 2, uncontrolled (Renamed from Uncontrolled type 2 diabetes mellitus) Start:28-Sep-2015 Instruction Type:Patient Education Patient Instructions Indication:Diabetes mellitus type 2, uncontrolled (Renamed from Uncontrolled type 2 diabetes mellitus) Start:28-Sep-2015 Instruction Type:Provider Instructions for Treatment Patient Instructions Indication:Diabetes mellitus type II, controlled, with no complications (Renamed from Controlled type 2 diabetes mellitus without complication) Start:14-Sep-2015 Instruction Type:Provider Instructions for Treatment [facility]; [facility] Work Phone: Instructions* Name Dates Details Patient Instructions Indication:BMI 34.0-34.9,adult Start:11-Apr-2022 Instruction Type:Provider Instructions for Treatment How to Access Health Informa tion Online using Patient Portal and [employer] Apps Indication:BMI 34.0-34.9,adult Start:11-Apr-2022 Instruction Type:Patient Education Patient Instructions Indication:BMI 33.0-33.9,adult Start:03-Jan-2022 Instruction Type:Provider Instructions for Treatment How to Access Health Informa tion Online using Patient Portal and [employer] Apps Indication:BMI 33.0-33.9,adult Start:03-Jan-2022 Instruction Type:Patient Education Patient Instructions Indication:Type II diabetes mellitus, well controlled Start:27-Sep-2021 Instruction Type:Provider Instructions for Treatment How to Access Health Informa tion Online using Patient Portal and [employer] Apps Indication:Type II diabetes mellitus, well controlled Start:27-Sep-2021 Instruction Type:Patient Education Patient Instructions Indication:Nonsmoker Start:24-May-2021 Instruction Type:Provider Instructions for Treatment How to Access Health Informa tion Online using Patient Portal and [employer] Apps Indication:Nonsmoker Start:24-May-2021 Instruction Type:Patient Education Patient Instructions Indication:Diabetes mellitus type II, controlled, with no complications (Renamed from Controlled type 2 diabetes mellitus without complication) Start:01-Feb-2021 Instruction Type:Provider Instructions for Treatment How to Access Health Informa tion Online using Patient Portal and [employer] Apps Indication:Diabetes mellitus type II, controlled, with no complications (Renamed from Controlled type 2 diabetes mellitus without complication) Start:01-Feb-2021 Instruction Type:Patient Education Patient Instructions Indication:BMI 30.0-30.9,adult Start:26-Oct-2020 Instruction Type:Provider Instructions for Treatment How to Access Health Informa tion Online using Patient Portal and [employer] Apps Indication:BMI 30.0-30.9,adult Start:26-Oct-2020 Instruction Type:Patient Education How to Access Health Informa tion Online using Patient Portal and [employer] Apps Indication:Nonsmoker Start:20-Jul-2020 Instruction Type:Patient Education Patient Instructions Indication:Nonsmoker Start:20-Jul-2020 Instruction Type:Provider Instructions for Treatment Patient Instructions Indication:Nonsmoker Start:13-Apr-2020 Instruction Type:Provider Instructions for Treatment How to Access Health Informa tion Online using Patient Portal and [employer] Apps Indication:Nonsmoker Start:13-Apr-2020 Instruction Type:Patient Education How to access health informa tion online Indication:Diabetes mellitus type 2, uncontrolled (Renamed from Uncontrolled type 2 diabetes mellitus) Start:25-Nov-2019 Instruction Type:Patient Education How to access health informa tion online - Detail Indication:Diabetes mellitus type 2, uncontrolled (Renamed from Uncontrolled type 2 diabetes mellitus) Start:25-Nov-2019 Instruction Type:Patient Education Patient Instructions Indication:Diabetes mellitus type 2, uncontrolled (Renamed from Uncontrolled type 2 diabetes mellitus) Start:25-Nov-2019 Instruction Type:Provider Instructions for Treatment How to access health informa tion online Indication:Diabetes mellitus type 2, uncontrolled (Renamed from Uncontrolled type 2 diabetes mellitus) Start:22-Jul-2019 Instruction Type:Patient Education How to access health informa tion online - Detail Indication:Diabetes mellitus type 2, uncontrolled (Renamed from Uncontrolled type 2 diabetes mellitus) Start:22-Jul-2019 Instruction Type:Patient Education Patient Instructions Indication:Diabetes mellitus type 2, uncontrolled (Renamed from Uncontrolled type 2 diabetes mellitus) Start:22-Jul-2019 Instruction Type:Provider Instructions for Treatment How to access health informa tion online Indication:Diabetes mellitus type II, controlled, with no complications (Renamed from Controlled type 2 diabetes mellitus without complication) Start:04-Feb-2019 Instruction Type:Patient Education How to access health informa tion online - Detail Indication:Diabetes mellitus type II, controlled, with no complications (Renamed from Controlled type 2 diabetes mellitus without complication) Start:04-Feb-2019 Instruction Type:Patient Education Patient Instructions Indication:Diabetes mellitus type II, controlled, with no complications (Renamed from Controlled type 2 diabetes mellitus without complication) Start:04-Feb-2019 Instruction Type:Provider Instructions for Treatment How to access health informa tion online Indication:Diabetes mellitus type II, controlled, with no complications (Renamed from Controlled type 2 diabetes mellitus without complication) Start:29-Oct-2018 Instruction Type:Patient Education How to access health informa tion online - Detail Indication:Diabetes mellitus type II, controlled, with no complications (Renamed from Controlled type 2 diabetes mellitus without complication) Start:29-Oct-2018 Instruction Type:Patient Education Patient Instructions Indication:Diabetes mellitus type II, controlled, with no complications (Renamed from Controlled type 2 diabetes mellitus without complication) Start:29-Oct-2018 Instruction Type:Provider Instructions for Treatment How to access health informa tion online Indication:Diabetes mellitus type II, controlled, with no complications (Renamed from Controlled type 2 diabetes mellitus without complication) Start:23-Jul-2018 Instruction Type:Patient Education How to access health informa tion online - Detail Indication:Diabetes mellitus type II, controlled, with no complications (Renamed from Controlled type 2 diabetes mellitus without complication) Start:23-Jul-2018 Instruction Type:Patient Education Patient Instructions Indication:Diabetes mellitus type II, controlled, with no complications (Renamed from Controlled type 2 diabetes mellitus without complication) Start:23-Jul-2018 Instruction Type:Provider Instructions for Treatment How to access health informa tion online Indication:Nutritional counseling Start:19-Mar-2018 Instruction Type:Patient Education How to access health informa tion online - Detail Indication:Nutritional counseling Start:19-Mar-2018 Instruction Type:Patient Education Patient Instructions Indication:Nutritional counseling Start:19-Mar-2018 Instruction Type:Provider Instructions for Treatment How to access health informa tion online Indication:BMI 30.0-30.9,adult Start:13-Nov-2017 Instruction Type:Patient Education How to access health informa tion online - Detail Indication:BMI 30.0-30.9,adult Start:13-Nov-2017 Instruction Type:Patient Education Patient Instructions Indication:BMI 30.0-30.9,adult Start:13-Nov-2017 Instruction Type:Provider Instructions for Treatment How to access health informa tion online Indication:Diabetes mellitus type II, controlled, with no complications (Renamed from Controlled type 2 diabetes mellitus without complication) Start:07-Aug-2017 Instruction Type:Patient Education How to access health informa tion online - Detail Indication:Diabetes mellitus type II, controlled, with no complications (Renamed from Controlled type 2 diabetes mellitus without complication) Start:07-Aug-2017 Instruction Type:Patient Education Patient Instructions Indication:Diabetes mellitus type II, controlled, with no complications (Renamed from Controlled type 2 diabetes mellitus without complication) Start:07-Aug-2017 Instruction Type:Provider Instructions for Treatment How to access health informa tion online Indication:Diabetes mellitus type II, controlled, with no complications (Renamed from Controlled type 2 diabetes mellitus without complication) Start:01-May-2017 Instruction Type:Patient Education How to access health informa tion online - Detail Indication:Diabetes mellitus type II, controlled, with no complications (Renamed from Controlled type 2 diabetes mellitus without complication) Start:01-May-2017 Instruction Type:Patient Education Patient Instructions Indication:Diabetes mellitus type II, controlled, with no complications (Renamed from Controlled type 2 diabetes mellitus without complication) Start:01-May-2017 Instruction Type:Provider Instructions for Treatment How to access health informa tion online Indication:BMI 32.0-32.9,adult Start:23-Jan-2017 Instruction Type:Patient Education How to access health informa tion online - Detail Indication:BMI 32.0-32.9,adult Start:23-Jan-2017 Instruction Type:Patient Education Patient Instructions Indication:BMI 32.0-32.9,adult Start:23-Jan-2017 Instruction Type:Provider Instructions for Treatment How to access health informa tion online Indication:Diabetes mellitus type II, controlled, with no complications (Renamed from Controlled type 2 diabetes mellitus without complication) Start:17-Oct-2016 Instruction Type:Patient Education How to access health informa tion online - Detail Indication:Diabetes mellitus type II, controlled, with no complications (Renamed from Controlled type 2 diabetes mellitus without complication) Start:17-Oct-2016 Instruction Type:Patient Education Patient Instructions Indication:Diabetes mellitus type II, controlled, with no complications (Renamed from Controlled type 2 diabetes mellitus without complication) Start:17-Oct-2016 Instruction Type:Provider Instructions for Treatment How to access health informa tion online Indication:Diabetes mellitus type II, controlled, with no complications (Renamed from Controlled type 2 diabetes mellitus without complication) Start:11-Jul-2016 Instruction Type:Patient Education How to access health informa tion online - Detail Indication:Diabetes mellitus type II, controlled, with no complications (Renamed from Controlled type 2 diabetes mellitus without complication) Start:11-Jul-2016 Instruction Type:Patient Education Patient Instructions Indication:Diabetes mellitus type II, controlled, with no complications (Renamed from Controlled type 2 diabetes mellitus without complication) Start:11-Jul-2016 Instruction Type:Provider Instructions for Treatment How to access health informa tion online Indication:Flu-like symptoms Start:10-Apr-2016 Instruction Type:Patient Education How to access health informa tion online - Detail Indication:Flu-like symptoms Start:10-Apr-2016 Instruction Type:Patient Education Patient Instructions Indication:Flu-like symptoms Start:10-Apr-2016 Instruction Type:Provider Instructions for Treatment How to access health informa tion online Indication:Diabetes mellitus type II, controlled, with no complications (Renamed from Controlled type 2 diabetes mellitus without complication) Start:21-Mar-2016 Instruction Type:Patient Education How to access health informa tion online - Detail Indication:Diabetes mellitus type II, controlled, with no complications (Renamed from Controlled type 2 diabetes mellitus without complication) Start:21-Mar-2016 Instruction Type:Patient Education Patient Instructions Indication:Diabetes mellitus type II, controlled, with no complications (Renamed from Controlled type 2 diabetes mellitus without complication) Start:21-Mar-2016 Instruction Type:Provider Instructions for Treatment How to access health informa tion online Indication:Diabetes mellitus type II, controlled, with no complications (Renamed from Controlled type 2 diabetes mellitus without complication) Start:14-Dec-2015 Instruction Type:Patient Education How to access health informa tion online - Detail Indication:Diabetes mellitus type II, controlled, with no complications (Renamed from Controlled type 2 diabetes mellitus without complication) Start:14-Dec-2015 Instruction Type:Patient Education Patient Instructions Indication:Diabetes mellitus type II, controlled, with no complications (Renamed from Controlled type 2 diabetes mellitus without complication) Start:14-Dec-2015 Instruction Type:Provider Instructions for Treatment How to access health informa tion online Indication:Diabetes mellitus type 2, uncontrolled (Renamed from Uncontrolled type 2 diabetes mellitus) Start:28-Sep-2015 Instruction Type:Patient Education How to access health informa tion online - Detail Indication:Diabetes mellitus type 2, uncontrolled (Renamed from Uncontrolled type 2 diabetes mellitus) Start:28-Sep-2015 Instruction Type:Patient Education Patient Instructions Indication:Diabetes mellitus type 2, uncontrolled (Renamed from Uncontrolled type 2 diabetes mellitus) Start:28-Sep-2015 Instruction Type:Provider Instructions for Treatment Patient Instructions Indication:Diabetes mellitus type II, controlled, with no complications (Renamed from Controlled type 2 diabetes mellitus without complication) Start:14-Sep-2015 Instruction Type:Provider Instructions for Treatment [facility]; [facility] Work Phone: Instructions* Name Dates Details Patient Instructions Indication:BMI 34.0-34.9,adult Start:11-Apr-2022 Instruction Type:Provider Instructions for Treatment How to Access Health Informa tion Online using Patient Portal and [employer] Apps Indication:BMI 34.0-34.9,adult Start:11-Apr-2022 Instruction Type:Patient Education Patient Instructions Indication:BMI 33.0-33.9,adult Start:03-Jan-2022 Instruction Type:Provider Instructions for Treatment How to Access Health Informa tion Online using Patient Portal and [employer] Apps Indication:BMI 33.0-33.9,adult Start:03-Jan-2022 Instruction Type:Patient Education Patient Instructions Indication:Type II diabetes mellitus, well controlled Start:27-Sep-2021 Instruction Type:Provider Instructions for Treatment How to Access Health Informa tion Online using Patient Portal and [employer] Apps Indication:Type II diabetes mellitus, well controlled Start:27-Sep-2021 Instruction Type:Patient Education Patient Instructions Indication:Nonsmoker Start:24-May-2021 Instruction Type:Provider Instructions for Treatment How to Access Health Informa tion Online using Patient Portal and [employer] Apps Indication:Nonsmoker Start:24-May-2021 Instruction Type:Patient Education Patient Instructions Indication:Diabetes mellitus type II, controlled, with no complications (Renamed from Controlled type 2 diabetes mellitus without complication) Start:01-Feb-2021 Instruction Type:Provider Instructions for Treatment How to Access Health Informa tion Online using Patient Portal and [employer] Apps Indication:Diabetes mellitus type II, controlled, with no complications (Renamed from Controlled type 2 diabetes mellitus without complication) Start:01-Feb-2021 Instruction Type:Patient Education Patient Instructions Indication:BMI 30.0-30.9,adult Start:26-Oct-2020 Instruction Type:Provider Instructions for Treatment How to Access Health Informa tion Online using Patient Portal and [employer] Apps Indication:BMI 30.0-30.9,adult Start:26-Oct-2020 Instruction Type:Patient Education How to Access Health Informa tion Online using Patient Portal and [employer] Apps Indication:Nonsmoker Start:20-Jul-2020 Instruction Type:Patient Education Patient Instructions Indication:Nonsmoker Start:20-Jul-2020 Instruction Type:Provider Instructions for Treatment Patient Instructions Indication:Nonsmoker Start:13-Apr-2020 Instruction Type:Provider Instructions for Treatment How to Access Health Informa tion Online using Patient Portal and [employer] Apps Indication:Nonsmoker Start:13-Apr-2020 Instruction Type:Patient Education How to access health informa tion online Indication:Diabetes mellitus type 2, uncontrolled (Renamed from Uncontrolled type 2 diabetes mellitus) Start:25-Nov-2019 Instruction Type:Patient Education How to access health informa tion online - Detail Indication:Diabetes mellitus type 2, uncontrolled (Renamed from Uncontrolled type 2 diabetes mellitus) Start:25-Nov-2019 Instruction Type:Patient Education Patient Instructions Indication:Diabetes mellitus type 2, uncontrolled (Renamed from Uncontrolled type 2 diabetes mellitus) Start:25-Nov-2019 Instruction Type:Provider Instructions for Treatment How to access health informa tion online Indication:Diabetes mellitus type 2, uncontrolled (Renamed from Uncontrolled type 2 diabetes mellitus) Start:22-Jul-2019 Instruction Type:Patient Education How to access health informa tion online - Detail Indication:Diabetes mellitus type 2, uncontrolled (Renamed from Uncontrolled type 2 diabetes mellitus) Start:22-Jul-2019 Instruction Type:Patient Education Patient Instructions Indication:Diabetes mellitus type 2, uncontrolled (Renamed from Uncontrolled type 2 diabetes mellitus) Start:22-Jul-2019 Instruction Type:Provider Instructions for Treatment How to access health informa tion online Indication:Diabetes mellitus type II, controlled, with no complications (Renamed from Controlled type 2 diabetes mellitus without complication) Start:04-Feb-2019 Instruction Type:Patient Education How to access health informa tion online - Detail Indication:Diabetes mellitus type II, controlled, with no complications (Renamed from Controlled type 2 diabetes mellitus without complication) Start:04-Feb-2019 Instruction Type:Patient Education Patient Instructions Indication:Diabetes mellitus type II, controlled, with no complications (Renamed from Controlled type 2 diabetes mellitus without complication) Start:04-Feb-2019 Instruction Type:Provider Instructions for Treatment How to access health informa tion online Indication:Diabetes mellitus type II, controlled, with no complications (Renamed from Controlled type 2 diabetes mellitus without complication) Start:29-Oct-2018 Instruction Type:Patient Education How to access health informa tion online - Detail Indication:Diabetes mellitus type II, controlled, with no complications (Renamed from Controlled type 2 diabetes mellitus without complication) Start:29-Oct-2018 Instruction Type:Patient Education Patient Instructions Indication:Diabetes mellitus type II, controlled, with no complications (Renamed from Controlled type 2 diabetes mellitus without complication) Start:29-Oct-2018 Instruction Type:Provider Instructions for Treatment How to access health informa tion online Indication:Diabetes mellitus type II, controlled, with no complications (Renamed from Controlled type 2 diabetes mellitus without complication) Start:23-Jul-2018 Instruction Type:Patient Education How to access health informa tion online - Detail Indication:Diabetes mellitus type II, controlled, with no complications (Renamed from Controlled type 2 diabetes mellitus without complication) Start:23-Jul-2018 Instruction Type:Patient Education Patient Instructions Indication:Diabetes mellitus type II, controlled, with no complications (Renamed from Controlled type 2 diabetes mellitus without complication) Start:23-Jul-2018 Instruction Type:Provider Instructions for Treatment How to access health informa tion online Indication:Nutritional counseling Start:19-Mar-2018 Instruction Type:Patient Education How to access health informa tion online - Detail Indication:Nutritional counseling Start:19-Mar-2018 Instruction Type:Patient Education Patient Instructions Indication:Nutritional counseling Start:19-Mar-2018 Instruction Type:Provider Instructions for Treatment How to access health informa tion online Indication:BMI 30.0-30.9,adult Start:13-Nov-2017 Instruction Type:Patient Education How to access health informa tion online - Detail Indication:BMI 30.0-30.9,adult Start:13-Nov-2017 Instruction Type:Patient Education Patient Instructions Indication:BMI 30.0-30.9,adult Start:13-Nov-2017 Instruction Type:Provider Instructions for Treatment How to access health informa tion online Indication:Diabetes mellitus type II, controlled, with no complications (Renamed from Controlled type 2 diabetes mellitus without complication) Start:07-Aug-2017 Instruction Type:Patient Education How to access health informa tion online - Detail Indication:Diabetes mellitus type II, controlled, with no complications (Renamed from Controlled type 2 diabetes mellitus without complication) Start:07-Aug-2017 Instruction Type:Patient Education Patient Instructions Indication:Diabetes mellitus type II, controlled, with no complications (Renamed from Controlled type 2 diabetes mellitus without complication) Start:07-Aug-2017 Instruction Type:Provider Instructions for Treatment How to access health informa tion online Indication:Diabetes mellitus type II, controlled, with no complications (Renamed from Controlled type 2 diabetes mellitus without complication) Start:01-May-2017 Instruction Type:Patient Education How to access health informa tion online - Detail Indication:Diabetes mellitus type II, controlled, with no complications (Renamed from Controlled type 2 diabetes mellitus without complication) Start:01-May-2017 Instruction Type:Patient Education Patient Instructions Indication:Diabetes mellitus type II, controlled, with no complications (Renamed from Controlled type 2 diabetes mellitus without complication) Start:01-May-2017 Instruction Type:Provider Instructions for Treatment How to access health informa tion online Indication:BMI 32.0-32.9,adult Start:23-Jan-2017 Instruction Type:Patient Education How to access health informa tion online - Detail Indication:BMI 32.0-32.9,adult Start:23-Jan-2017 Instruction Type:Patient Education Patient Instructions Indication:BMI 32.0-32.9,adult Start:23-Jan-2017 Instruction Type:Provider Instructions for Treatment How to access health informa tion online Indication:Diabetes mellitus type II, controlled, with no complications (Renamed from Controlled type 2 diabetes mellitus without complication) Start:17-Oct-2016 Instruction Type:Patient Education How to access health informa tion online - Detail Indication:Diabetes mellitus type II, controlled, with no complications (Renamed from Controlled type 2 diabetes mellitus without complication) Start:17-Oct-2016 Instruction Type:Patient Education Patient Instructions Indication:Diabetes mellitus type II, controlled, with no complications (Renamed from Controlled type 2 diabetes mellitus without complication) Start:17-Oct-2016 Instruction Type:Provider Instructions for Treatment How to access health informa tion online Indication:Diabetes mellitus type II, controlled, with no complications (Renamed from Controlled type 2 diabetes mellitus without complication) Start:11-Jul-2016 Instruction Type:Patient Education How to access health informa tion online - Detail Indication:Diabetes mellitus type II, controlled, with no complications (Renamed from Controlled type 2 diabetes mellitus without complication) Start:11-Jul-2016 Instruction Type:Patient Education Patient Instructions Indication:Diabetes mellitus type II, controlled, with no complications (Renamed from Controlled type 2 diabetes mellitus without complication) Start:11-Jul-2016 Instruction Type:Provider Instructions for Treatment How to access health informa tion online Indication:Flu-like symptoms Start:10-Apr-2016 Instruction Type:Patient Education How to access health informa tion online - Detail Indication:Flu-like symptoms Start:10-Apr-2016 Instruction Type:Patient Education Patient Instructions Indication:Flu-like symptoms Start:10-Apr-2016 Instruction Type:Provider Instructions for Treatment How to access health informa tion online Indication:Diabetes mellitus type II, controlled, with no complications (Renamed from Controlled type 2 diabetes mellitus without complication) Start:21-Mar-2016 Instruction Type:Patient Education How to access health informa tion online - Detail Indication:Diabetes mellitus type II, controlled, with no complications (Renamed from Controlled type 2 diabetes mellitus without complication) Start:21-Mar-2016 Instruction Type:Patient Education Patient Instructions Indication:Diabetes mellitus type II, controlled, with no complications (Renamed from Controlled type 2 diabetes mellitus without complication) Start:21-Mar-2016 Instruction Type:Provider Instructions for Treatment How to access health informa tion online Indication:Diabetes mellitus type II, controlled, with no complications (Renamed from Controlled type 2 diabetes mellitus without complication) Start:14-Dec-2015 Instruction Type:Patient Education How to access health informa tion online - Detail Indication:Diabetes mellitus type II, controlled, with no complications (Renamed from Controlled type 2 diabetes mellitus without complication) Start:14-Dec-2015 Instruction Type:Patient Education Patient Instructions Indication:Diabetes mellitus type II, controlled, with no complications (Renamed from Controlled type 2 diabetes mellitus without complication) Start:14-Dec-2015 Instruction Type:Provider Instructions for Treatment How to access health informa tion online Indication:Diabetes mellitus type 2, uncontrolled (Renamed from Uncontrolled type 2 diabetes mellitus) Start:28-Sep-2015 Instruction Type:Patient Education How to access health informa tion online - Detail Indication:Diabetes mellitus type 2, uncontrolled (Renamed from Uncontrolled type 2 diabetes mellitus) Start:28-Sep-2015 Instruction Type:Patient Education Patient Instructions Indication:Diabetes mellitus type 2, uncontrolled (Renamed from Uncontrolled type 2 diabetes mellitus) Start:28-Sep-2015 Instruction Type:Provider Instructions for Treatment Patient Instructions Indication:Diabetes mellitus type II, controlled, with no complications (Renamed from Controlled type 2 diabetes mellitus without complication) Start:14-Sep-2015 Instruction Type:Provider Instructions for Treatment [facility]; [facility] Work Phone: Instructions* Name Dates Details Patient Instructions Indication:BMI 34.0-34.9,adult Start:11-Apr-2022 Instruction Type:Provider Instructions for Treatment How to Access Health Informa tion Online using Patient Portal and [employer] Indication:BMI 34.0-34.9,adult Start:11-Apr-2022 Instruction Type:Patient Education Patient Instructions Indication:BMI 33.0-33.9,adult Start:03-Jan-2022 Instruction Type:Provider Instructions for Treatment How to Access Health Informa tion Online using Patient Portal and [employer] Apps Indication:BMI 33.0-33.9,adult Start:03-Jan-2022 Instruction Type:Patient Education Patient Instructions Indication:Type II diabetes mellitus, well controlled Start:27-Sep-2021 Instruction Type:Provider Instructions for Treatment How to Access Health Informa tion Online using Patient Portal and [employer] Apps Indication:Type II diabetes mellitus, well controlled Start:27-Sep-2021 Instruction Type:Patient Education Patient Instructions Indication:Nonsmoker Start:24-May-2021 Instruction Type:Provider Instructions for Treatment How to Access Health Informa tion Online using Patient Portal and [employer] Apps Indication:Nonsmoker Start:24-May-2021 Instruction Type:Patient Education Patient Instructions Indication:Diabetes mellitus type II, controlled, with no complications (Renamed from Controlled type 2 diabetes mellitus without complication) Start:01-Feb-2021 Instruction Type:Provider Instructions for Treatment How to Access Health Informa tion Online using Patient Portal and [employer] Apps Indication:Diabetes mellitus type II, controlled, with no complications (Renamed from Controlled type 2 diabetes mellitus without complication) Start:01-Feb-2021 Instruction Type:Patient Education Patient Instructions Indication:BMI 30.0-30.9,adult Start:26-Oct-2020 Instruction Type:Provider Instructions for Treatment How to Access Health Informa tion Online using Patient Portal and [employer] Apps Indication:BMI 30.0-30.9,adult Start:26-Oct-2020 Instruction Type:Patient Education How to Access Health Informa tion Online using Patient Portal and [employer] Apps Indication:Nonsmoker Start:20-Jul-2020 Instruction Type:Patient Education Patient Instructions Indication:Nonsmoker Start:20-Jul-2020 Instruction Type:Provider Instructions for Treatment Patient Instructions Indication:Nonsmoker Start:13-Apr-2020 Instruction Type:Provider Instructions for Treatment How to Access Health Informa tion Online using Patient Portal and [employer] Apps Indication:Nonsmoker Start:13-Apr-2020 Instruction Type:Patient Education How to access health informa tion online Indication:Diabetes mellitus type 2, uncontrolled (Renamed from Uncontrolled type 2 diabetes mellitus) Start:25-Nov-2019 Instruction Type:Patient Education How to access health informa tion online - Detail Indication:Diabetes mellitus type 2, uncontrolled (Renamed from Uncontrolled type 2 diabetes mellitus) Start:25-Nov-2019 Instruction Type:Patient Education Patient Instructions Indication:Diabetes mellitus type 2, uncontrolled (Renamed from Uncontrolled type 2 diabetes mellitus) Start:25-Nov-2019 Instruction Type:Provider Instructions for Treatment How to access health informa tion online Indication:Diabetes mellitus type 2, uncontrolled (Renamed from Uncontrolled type 2 diabetes mellitus) Start:22-Jul-2019 Instruction Type:Patient Education How to access health informa tion online - Detail Indication:Diabetes mellitus type 2, uncontrolled (Renamed from Uncontrolled type 2 diabetes mellitus) Start:22-Jul-2019 Instruction Type:Patient Education Patient Instructions Indication:Diabetes mellitus type 2, uncontrolled (Renamed from Uncontrolled type 2 diabetes mellitus) Start:22-Jul-2019 Instruction Type:Provider Instructions for Treatment How to access health informa tion online Indication:Diabetes mellitus type II, controlled, with no complications (Renamed from Controlled type 2 diabetes mellitus without complication) Start:04-Feb-2019 Instruction Type:Patient Education How to access health informa tion online - Detail Indication:Diabetes mellitus type II, controlled, with no complications (Renamed from Controlled type 2 diabetes mellitus without complication) Start:04-Feb-2019 Instruction Type:Patient Education Patient Instructions Indication:Diabetes mellitus type II, controlled, with no complications (Renamed from Controlled type 2 diabetes mellitus without complication) Start:04-Feb-2019 Instruction Type:Provider Instructions for Treatment How to access health informa tion online Indication:Diabetes mellitus type II, controlled, with no complications (Renamed from Controlled type 2 diabetes mellitus without complication) Start:29-Oct-2018 Instruction Type:Patient Education How to access health informa tion online - Detail Indication:Diabetes mellitus type II, controlled, with no complications (Renamed from Controlled type 2 diabetes mellitus without complication) Start:29-Oct-2018 Instruction Type:Patient Education Patient Instructions Indication:Diabetes mellitus type II, controlled, with no complications (Renamed from Controlled type 2 diabetes mellitus without complication) Start:29-Oct-2018 Instruction Type:Provider Instructions for Treatment How to access health informa tion online Indication:Diabetes mellitus type II, controlled, with no complications (Renamed from Controlled type 2 diabetes mellitus without complication) Start:23-Jul-2018 Instruction Type:Patient Education How to access health informa tion online - Detail Indication:Diabetes mellitus type II, controlled, with no complications (Renamed from Controlled type 2 diabetes mellitus without complication) Start:23-Jul-2018 Instruction Type:Patient Education Patient Instructions Indication:Diabetes mellitus type II, controlled, with no complications (Renamed from Controlled type 2 diabetes mellitus without complication) Start:23-Jul-2018 Instruction Type:Provider Instructions for Treatment How to access health informa tion online Indication:Nutritional counseling Start:19-Mar-2018 Instruction Type:Patient Education How to access health informa tion online - Detail Indication:Nutritional counseling Start:19-Mar-2018 Instruction Type:Patient Education Patient Instructions Indication:Nutritional counseling Start:19-Mar-2018 Instruction Type:Provider Instructions for Treatment How to access health informa tion online Indication:BMI 30.0-30.9,adult Start:13-Nov-2017 Instruction Type:Patient Education How to access health informa tion online - Detail Indication:BMI 30.0-30.9,adult Start:13-Nov-2017 Instruction Type:Patient Education Patient Instructions Indication:BMI 30.0-30.9,adult Start:13-Nov-2017 Instruction Type:Provider Instructions for Treatment How to access health informa tion online Indication:Diabetes mellitus type II, controlled, with no complications (Renamed from Controlled type 2 diabetes mellitus without complication) Start:07-Aug-2017 Instruction Type:Patient Education How to access health informa tion online - Detail Indication:Diabetes mellitus type II, controlled, with no complications (Renamed from Controlled type 2 diabetes mellitus without complication) Start:07-Aug-2017 Instruction Type:Patient Education Patient Instructions Indication:Diabetes mellitus type II, controlled, with no complications (Renamed from Controlled type 2 diabetes mellitus without complication) Start:07-Aug-2017 Instruction Type:Provider Instructions for Treatment How to access health informa tion online Indication:Diabetes mellitus type II, controlled, with no complications (Renamed from Controlled type 2 diabetes mellitus without complication) Start:01-May-2017 Instruction Type:Patient Education How to access health informa tion online - Detail Indication:Diabetes mellitus type II, controlled, with no complications (Renamed from Controlled type 2 diabetes mellitus without complication) Start:01-May-2017 Instruction Type:Patient Education Patient Instructions Indication:Diabetes mellitus type II, controlled, with no complications (Renamed from Controlled type 2 diabetes mellitus without complication) Start:01-May-2017 Instruction Type:Provider Instructions for Treatment How to access health informa tion online Indication:BMI 32.0-32.9,adult Start:23-Jan-2017 Instruction Type:Patient Education How to access health informa tion online - Detail Indication:BMI 32.0-32.9,adult Start:23-Jan-2017 Instruction Type:Patient Education Patient Instructions Indication:BMI 32.0-32.9,adult Start:23-Jan-2017 Instruction Type:Provider Instructions for Treatment How to access health informa tion online Indication:Diabetes mellitus type II, controlled, with no complications (Renamed from Controlled type 2 diabetes mellitus without complication) Start:17-Oct-2016 Instruction Type:Patient Education How to access health informa tion online - Detail Indication:Diabetes mellitus type II, controlled, with no complications (Renamed from Controlled type 2 diabetes mellitus without complication) Start:17-Oct-2016 Instruction Type:Patient Education Patient Instructions Indication:Diabetes mellitus type II, controlled, with no complications (Renamed from Controlled type 2 diabetes mellitus without complication) Start:17-Oct-2016 Instruction Type:Provider Instructions for Treatment How to access health informa tion online Indication:Diabetes mellitus type II, controlled, with no complications (Renamed from Controlled type 2 diabetes mellitus without complication) Start:11-Jul-2016 Instruction Type:Patient Education How to access health informa tion online - Detail Indication:Diabetes mellitus type II, controlled, with no complications (Renamed from Controlled type 2 diabetes mellitus without complication) Start:11-Jul-2016 Instruction Type:Patient Education Patient Instructions Indication:Diabetes mellitus type II, controlled, with no complications (Renamed from Controlled type 2 diabetes mellitus without complication) Start:11-Jul-2016 Instruction Type:Provider Instructions for Treatment How to access health informa tion online Indication:Flu-like symptoms Start:10-Apr-2016 Instruction Type:Patient Education How to access health informa tion online - Detail Indication:Flu-like symptoms Start:10-Apr-2016 Instruction Type:Patient Education Patient Instructions Indication:Flu-like symptoms Start:10-Apr-2016 Instruction Type:Provider Instructions for Treatment How to access health informa tion online Indication:Diabetes mellitus type II, controlled, with no complications (Renamed from Controlled type 2 diabetes mellitus without complication) Start:21-Mar-2016 Instruction Type:Patient Education How to access health informa tion online - Detail Indication:Diabetes mellitus type II, controlled, with no complications (Renamed from Controlled type 2 diabetes mellitus without complication) Start:21-Mar-2016 Instruction Type:Patient Education Patient Instructions Indication:Diabetes mellitus type II, controlled, with no complications (Renamed from Controlled type 2 diabetes mellitus without complication) Start:21-Mar-2016 Instruction Type:Provider Instructions for Treatment How to access health informa tion online Indication:Diabetes mellitus type II, controlled, with no complications (Renamed from Controlled type 2 diabetes mellitus without complication) Start:14-Dec-2015 Instruction Type:Patient Education How to access health informa tion online - Detail Indication:Diabetes mellitus type II, controlled, with no complications (Renamed from Controlled type 2 diabetes mellitus without complication) Start:14-Dec-2015 Instruction Type:Patient Education Patient Instructions Indication:Diabetes mellitus type II, controlled, with no complications (Renamed from Controlled type 2 diabetes mellitus without complication) Start:14-Dec-2015 Instruction Type:Provider Instructions for Treatment How to access health informa tion online Indication:Diabetes mellitus type 2, uncontrolled (Renamed from Uncontrolled type 2 diabetes mellitus) Start:28-Sep-2015 Instruction Type:Patient Education How to access health informa tion online - Detail Indication:Diabetes mellitus type 2, uncontrolled (Renamed from Uncontrolled type 2 diabetes mellitus) Start:28-Sep-2015 Instruction Type:Patient Education Patient Instructions Indication:Diabetes mellitus type 2, uncontrolled (Renamed from Uncontrolled type 2 diabetes mellitus) Start:28-Sep-2015 Instruction Type:Provider Instructions for Treatment Patient Instructions Indication:Diabetes mellitus type II, controlled, with no complications (Renamed from Controlled type 2 diabetes mellitus without complication) Start:14-Sep-2015 Instruction Type:Provider Instructions for Treatment [facility]; [facility] Work Phone: Instructions* Name Dates Details Patient Instructions Indication:Nonsmoker Start:06-Aug-2022 Instruction Type:Provider Instructions for Treatment How to Access Health Informa tion Online using Patient Portal and [employer] Apps Indication:Nonsmoker Start:06-Aug-2022 Instruction Type:Patient Education Patient Instructions Indication:BMI 34.0-34.9,adult Start:11-Apr-2022 Instruction Type:Provider Instructions for Treatment How to Access Health Informa tion Online using Patient Portal and [employer] Indication:BMI 34.0-34.9,adult Start:11-Apr-2022 Instruction Type:Patient Education Patient Instructions Indication:BMI 33.0-33.9,adult Start:03-Jan-2022 Instruction Type:Provider Instructions for Treatment How to Access Health Informa tion Online using Patient Portal and [employer] Indication:BMI 33.0-33.9,adult Start:03-Jan-2022 Instruction Type:Patient Education Patient Instructions Indication:Type II diabetes mellitus, well controlled Start:27-Sep-2021 Instruction Type:Provider Instructions for Treatment How to Access Health Informa tion Online using Patient Portal and [employer] Apps Indication:Type II diabetes mellitus, well controlled Start:27-Sep-2021 Instruction Type:Patient Education Patient Instructions Indication:Nonsmoker Start:24-May-2021 Instruction Type:Provider Instructions for Treatment How to Access Health Informa tion Online using Patient Portal and [employer] Apps Indication:Nonsmoker Start:24-May-2021 Instruction Type:Patient Education Patient Instructions Indication:Diabetes mellitus type II, controlled, with no complications (Renamed from Controlled type 2 diabetes mellitus without complication) Start:01-Feb-2021 Instruction Type:Provider Instructions for Treatment How to Access Health Informa tion Online using Patient Portal and [employer] Apps Indication:Diabetes mellitus type II, controlled, with no complications (Renamed from Controlled type 2 diabetes mellitus without complication) Start:01-Feb-2021 Instruction Type:Patient Education Patient Instructions Indication:BMI 30.0-30.9,adult Start:26-Oct-2020 Instruction Type:Provider Instructions for Treatment How to Access Health Informa tion Online using Patient Portal and [employer] Indication:BMI 30.0-30.9,adult Start:26-Oct-2020 Instruction Type:Patient Education How to Access Health Informa tion Online using Patient Portal and [employer] Apps Indication:Nonsmoker Start:20-Jul-2020 Instruction Type:Patient Education Patient Instructions Indication:Nonsmoker Start:20-Jul-2020 Instruction Type:Provider Instructions for Treatment Patient Instructions Indication:Nonsmoker Start:13-Apr-2020 Instruction Type:Provider Instructions for Treatment How to Access Health Informa tion Online using Patient Portal and [employer] Indication:Nonsmoker Start:13-Apr-2020 Instruction Type:Patient Education How to access health informa tion online Indication:Diabetes mellitus type 2, uncontrolled (Renamed from Uncontrolled type 2 diabetes mellitus) Start:25-Nov-2019 Instruction Type:Patient Education How to access health informa tion online - Detail Indication:Diabetes mellitus type 2, uncontrolled (Renamed from Uncontrolled type 2 diabetes mellitus) Start:25-Nov-2019 Instruction Type:Patient Education Patient Instructions Indication:Diabetes mellitus type 2, uncontrolled (Renamed from Uncontrolled type 2 diabetes mellitus) Start:25-Nov-2019 Instruction Type:Provider Instructions for Treatment How to access health informa tion online Indication:Diabetes mellitus type 2, uncontrolled (Renamed from Uncontrolled type 2 diabetes mellitus) Start:22-Jul-2019 Instruction Type:Patient Education How to access health informa tion online - Detail Indication:Diabetes mellitus type 2, uncontrolled (Renamed from Uncontrolled type 2 diabetes mellitus) Start:22-Jul-2019 Instruction Type:Patient Education Patient Instructions Indication:Diabetes mellitus type 2, uncontrolled (Renamed from Uncontrolled type 2 diabetes mellitus) Start:22-Jul-2019 Instruction Type:Provider Instructions for Treatment How to access health informa tion online Indication:Diabetes mellitus type II, controlled, with no complications (Renamed from Controlled type 2 diabetes mellitus without complication) Start:04-Feb-2019 Instruction Type:Patient Education How to access health informa tion online - Detail Indication:Diabetes mellitus type II, controlled, with no complications (Renamed from Controlled type 2 diabetes mellitus without complication) Start:04-Feb-2019 Instruction Type:Patient Education Patient Instructions Indication:Diabetes mellitus type II, controlled, with no complications (Renamed from Controlled type 2 diabetes mellitus without complication) Start:04-Feb-2019 Instruction Type:Provider Instructions for Treatment How to access health informa tion online Indication:Diabetes mellitus type II, controlled, with no complications (Renamed from Controlled type 2 diabetes mellitus without complication) Start:29-Oct-2018 Instruction Type:Patient Education How to access health informa tion online - Detail Indication:Diabetes mellitus type II, controlled, with no complications (Renamed from Controlled type 2 diabetes mellitus without complication) Start:29-Oct-2018 Instruction Type:Patient Education Patient Instructions Indication:Diabetes mellitus type II, controlled, with no complications (Renamed from Controlled type 2 diabetes mellitus without complication) Start:29-Oct-2018 Instruction Type:Provider Instructions for Treatment How to access health informa tion online Indication:Diabetes mellitus type II, controlled, with no complications (Renamed from Controlled type 2 diabetes mellitus without complication) Start:23-Jul-2018 Instruction Type:Patient Education How to access health informa tion online - Detail Indication:Diabetes mellitus type II, controlled, with no complications (Renamed from Controlled type 2 diabetes mellitus without complication) Start:23-Jul-2018 Instruction Type:Patient Education Patient Instructions Indication:Diabetes mellitus type II, controlled, with no complications (Renamed from Controlled type 2 diabetes mellitus without complication) Start:23-Jul-2018 Instruction Type:Provider Instructions for Treatment How to access health informa tion online Indication:Nutritional counseling Start:19-Mar-2018 Instruction Type:Patient Education How to access health informa tion online - Detail Indication:Nutritional counseling Start:19-Mar-2018 Instruction Type:Patient Education Patient Instructions Indication:Nutritional counseling Start:19-Mar-2018 Instruction Type:Provider Instructions for Treatment How to access health informa tion online Indication:BMI 30.0-30.9,adult Start:13-Nov-2017 Instruction Type:Patient Education How to access health informa tion online - Detail Indication:BMI 30.0-30.9,adult Start:13-Nov-2017 Instruction Type:Patient Education Patient Instructions Indication:BMI 30.0-30.9,adult Start:13-Nov-2017 Instruction Type:Provider Instructions for Treatment How to access health informa tion online Indication:Diabetes mellitus type II, controlled, with no complications (Renamed from Controlled type 2 diabetes mellitus without complication) Start:07-Aug-2017 Instruction Type:Patient Education How to access health informa tion online - Detail Indication:Diabetes mellitus type II, controlled, with no complications (Renamed from Controlled type 2 diabetes mellitus without complication) Start:07-Aug-2017 Instruction Type:Patient Education Patient Instructions Indication:Diabetes mellitus type II, controlled, with no complications (Renamed from Controlled type 2 diabetes mellitus without complication) Start:07-Aug-2017 Instruction Type:Provider Instructions for Treatment How to access health informa tion online Indication:Diabetes mellitus type II, controlled, with no complications (Renamed from Controlled type 2 diabetes mellitus without complication) Start:01-May-2017 Instruction Type:Patient Education How to access health informa tion online - Detail Indication:Diabetes mellitus type II, controlled, with no complications (Renamed from Controlled type 2 diabetes mellitus without complication) Start:01-May-2017 Instruction Type:Patient Education Patient Instructions Indication:Diabetes mellitus type II, controlled, with no complications (Renamed from Controlled type 2 diabetes mellitus without complication) Start:01-May-2017 Instruction Type:Provider Instructions for Treatment How to access health informa tion online Indication:BMI 32.0-32.9,adult Start:23-Jan-2017 Instruction Type:Patient Education How to access health informa tion online - Detail Indication:BMI 32.0-32.9,adult Start:23-Jan-2017 Instruction Type:Patient Education Patient Instructions Indication:BMI 32.0-32.9,adult Start:23-Jan-2017 Instruction Type:Provider Instructions for Treatment How to access health informa tion online Indication:Diabetes mellitus type II, controlled, with no complications (Renamed from Controlled type 2 diabetes mellitus without complication) Start:17-Oct-2016 Instruction Type:Patient Education How to access health informa tion online - Detail Indication:Diabetes mellitus type II, controlled, with no complications (Renamed from Controlled type 2 diabetes mellitus without complication) Start:17-Oct-2016 Instruction Type:Patient Education Patient Instructions Indication:Diabetes mellitus type II, controlled, with no complications (Renamed from Controlled type 2 diabetes mellitus without complication) Start:17-Oct-2016 Instruction Type:Provider Instructions for Treatment How to access health informa tion online Indication:Diabetes mellitus type II, controlled, with no complications (Renamed from Controlled type 2 diabetes mellitus without complication) Start:11-Jul-2016 Instruction Type:Patient Education How to access health informa tion online - Detail Indication:Diabetes mellitus type II, controlled, with no complications (Renamed from Controlled type 2 diabetes mellitus without complication) Start:11-Jul-2016 Instruction Type:Patient Education Patient Instructions Indication:Diabetes mellitus type II, controlled, with no complications (Renamed from Controlled type 2 diabetes mellitus without complication) Start:11-Jul-2016 Instruction Type:Provider Instructions for Treatment How to access health informa tion online Indication:Flu-like symptoms Start:10-Apr-2016 Instruction Type:Patient Education How to access health informa tion online - Detail Indication:Flu-like symptoms Start:10-Apr-2016 Instruction Type:Patient Education Patient Instructions Indication:Flu-like symptoms Start:10-Apr-2016 Instruction Type:Provider Instructions for Treatment How to access health informa tion online Indication:Diabetes mellitus type II, controlled, with no complications (Renamed from Controlled type 2 diabetes mellitus without complication) Start:21-Mar-2016 Instruction Type:Patient Education How to access health informa tion online - Detail Indication:Diabetes mellitus type II, controlled, with no complications (Renamed from Controlled type 2 diabetes mellitus without complication) Start:21-Mar-2016 Instruction Type:Patient Education Patient Instructions Indication:Diabetes mellitus type II, controlled, with no complications (Renamed from Controlled type 2 diabetes mellitus without complication) Start:21-Mar-2016 Instruction Type:Provider Instructions for Treatment How to access health informa tion online Indication:Diabetes mellitus type II, controlled, with no complications (Renamed from Controlled type 2 diabetes mellitus without complication) Start:14-Dec-2015 Instruction Type:Patient Education How to access health informa tion online - Detail Indication:Diabetes mellitus type II, controlled, with no complications (Renamed from Controlled type 2 diabetes mellitus without complication) Start:14-Dec-2015 Instruction Type:Patient Education Patient Instructions Indication:Diabetes mellitus type II, controlled, with no complications (Renamed from Controlled type 2 diabetes mellitus without complication) Start:14-Dec-2015 Instruction Type:Provider Instructions for Treatment How to access health informa tion online Indication:Diabetes mellitus type 2, uncontrolled (Renamed from Uncontrolled type 2 diabetes mellitus) Start:28-Sep-2015 Instruction Type:Patient Education How to access health informa tion online - Detail Indication:Diabetes mellitus type 2, uncontrolled (Renamed from Uncontrolled type 2 diabetes mellitus) Start:28-Sep-2015 Instruction Type:Patient Education Patient Instructions Indication:Diabetes mellitus type 2, uncontrolled (Renamed from Uncontrolled type 2 diabetes mellitus) Start:28-Sep-2015 Instruction Type:Provider Instructions for Treatment Patient Instructions Indication:Diabetes mellitus type II, controlled, with no complications (Renamed from Controlled type 2 diabetes mellitus without complication) Start:14-Sep-2015 Instruction Type:Provider Instructions for Treatment [facility]; [facility] Work Phone: Instructions* Name Dates Details Patient Instructions Indication:Nonsmoker Start:06-Aug-2022 Instruction Type:Provider Instructions for Treatment How to Access Health Informa tion Online using Patient Portal and [employer] Apps Indication:Nonsmoker Start:06-Aug-2022 Instruction Type:Patient Education Patient Instructions Indication:BMI 34.0-34.9,adult Start:11-Apr-2022 Instruction Type:Provider Instructions for Treatment How to Access Health Informa tion Online using Patient Portal and [employer] Apps Indication:BMI 34.0-34.9,adult Start:11-Apr-2022 Instruction Type:Patient Education Patient Instructions Indication:BMI 33.0-33.9,adult Start:03-Jan-2022 Instruction Type:Provider Instructions for Treatment How to Access Health Informa tion Online using Patient Portal and [employer] Apps Indication:BMI 33.0-33.9,adult Start:03-Jan-2022 Instruction Type:Patient Education Patient Instructions Indication:Type II diabetes mellitus, well controlled Start:27-Sep-2021 Instruction Type:Provider Instructions for Treatment How to Access Health Informa tion Online using Patient Portal and [employer] Apps Indication:Type II diabetes mellitus, well controlled Start:27-Sep-2021 Instruction Type:Patient Education Patient Instructions Indication:Nonsmoker Start:24-May-2021 Instruction Type:Provider Instructions for Treatment How to Access Health Informa tion Online using Patient Portal and [employer] Apps Indication:Nonsmoker Start:24-May-2021 Instruction Type:Patient Education Patient Instructions Indication:Diabetes mellitus type II, controlled, with no complications (Renamed from Controlled type 2 diabetes mellitus without complication) Start:01-Feb-2021 Instruction Type:Provider Instructions for Treatment How to Access Health Informa tion Online using Patient Portal and [employer] Apps Indication:Diabetes mellitus type II, controlled, with no complications (Renamed from Controlled type 2 diabetes mellitus without complication) Start:01-Feb-2021 Instruction Type:Patient Education Patient Instructions Indication:BMI 30.0-30.9,adult Start:26-Oct-2020 Instruction Type:Provider Instructions for Treatment How to Access Health Informa tion Online using Patient Portal and [employer] Indication:BMI 30.0-30.9,adult Start:26-Oct-2020 Instruction Type:Patient Education How to Access Health Informa tion Online using Patient Portal and [employer] Apps Indication:Nonsmoker Start:20-Jul-2020 Instruction Type:Patient Education Patient Instructions Indication:Nonsmoker Start:20-Jul-2020 Instruction Type:Provider Instructions for Treatment Patient Instructions Indication:Nonsmoker Start:13-Apr-2020 Instruction Type:Provider Instructions for Treatment How to Access Health Informa tion Online using Patient Portal and [employer] Apps Indication:Nonsmoker Start:13-Apr-2020 Instruction Type:Patient Education How to access health informa tion online Indication:Diabetes mellitus type 2, uncontrolled (Renamed from Uncontrolled type 2 diabetes mellitus) Start:25-Nov-2019 Instruction Type:Patient Education How to access health informa tion online - Detail Indication:Diabetes mellitus type 2, uncontrolled (Renamed from Uncontrolled type 2 diabetes mellitus) Start:25-Nov-2019 Instruction Type:Patient Education Patient Instructions Indication:Diabetes mellitus type 2, uncontrolled (Renamed from Uncontrolled type 2 diabetes mellitus) Start:25-Nov-2019 Instruction Type:Provider Instructions for Treatment How to access health informa tion online Indication:Diabetes mellitus type 2, uncontrolled (Renamed from Uncontrolled type 2 diabetes mellitus) Start:22-Jul-2019 Instruction Type:Patient Education How to access health informa tion online - Detail Indication:Diabetes mellitus type 2, uncontrolled (Renamed from Uncontrolled type 2 diabetes mellitus) Start:22-Jul-2019 Instruction Type:Patient Education Patient Instructions Indication:Diabetes mellitus type 2, uncontrolled (Renamed from Uncontrolled type 2 diabetes mellitus) Start:22-Jul-2019 Instruction Type:Provider Instructions for Treatment How to access health informa tion online Indication:Diabetes mellitus type II, controlled, with no complications (Renamed from Controlled type 2 diabetes mellitus without complication) Start:04-Feb-2019 Instruction Type:Patient Education How to access health informa tion online - Detail Indication:Diabetes mellitus type II, controlled, with no complications (Renamed from Controlled type 2 diabetes mellitus without complication) Start:04-Feb-2019 Instruction Type:Patient Education Patient Instructions Indication:Diabetes mellitus type II, controlled, with no complications (Renamed from Controlled type 2 diabetes mellitus without complication) Start:04-Feb-2019 Instruction Type:Provider Instructions for Treatment How to access health informa tion online Indication:Diabetes mellitus type II, controlled, with no complications (Renamed from Controlled type 2 diabetes mellitus without complication) Start:29-Oct-2018 Instruction Type:Patient Education How to access health informa tion online - Detail Indication:Diabetes mellitus type II, controlled, with no complications (Renamed from Controlled type 2 diabetes mellitus without complication) Start:29-Oct-2018 Instruction Type:Patient Education Patient Instructions Indication:Diabetes mellitus type II, controlled, with no complications (Renamed from Controlled type 2 diabetes mellitus without complication) Start:29-Oct-2018 Instruction Type:Provider Instructions for Treatment How to access health informa tion online Indication:Diabetes mellitus type II, controlled, with no complications (Renamed from Controlled type 2 diabetes mellitus without complication) Start:23-Jul-2018 Instruction Type:Patient Education How to access health informa tion online - Detail Indication:Diabetes mellitus type II, controlled, with no complications (Renamed from Controlled type 2 diabetes mellitus without complication) Start:23-Jul-2018 Instruction Type:Patient Education Patient Instructions Indication:Diabetes mellitus type II, controlled, with no complications (Renamed from Controlled type 2 diabetes mellitus without complication) Start:23-Jul-2018 Instruction Type:Provider Instructions for Treatment How to access health informa tion online Indication:Nutritional counseling Start:19-Mar-2018 Instruction Type:Patient Education How to access health informa tion online - Detail Indication:Nutritional counseling Start:19-Mar-2018 Instruction Type:Patient Education Patient Instructions Indication:Nutritional counseling Start:19-Mar-2018 Instruction Type:Provider Instructions for Treatment How to access health informa tion online Indication:BMI 30.0-30.9,adult Start:13-Nov-2017 Instruction Type:Patient Education How to access health informa tion online - Detail Indication:BMI 30.0-30.9,adult Start:13-Nov-2017 Instruction Type:Patient Education Patient Instructions Indication:BMI 30.0-30.9,adult Start:13-Nov-2017 Instruction Type:Provider Instructions for Treatment How to access health informa tion online Indication:Diabetes mellitus type II, controlled, with no complications (Renamed from Controlled type 2 diabetes mellitus without complication) Start:07-Aug-2017 Instruction Type:Patient Education How to access health informa tion online - Detail Indication:Diabetes mellitus type II, controlled, with no complications (Renamed from Controlled type 2 diabetes mellitus without complication) Start:07-Aug-2017 Instruction Type:Patient Education Patient Instructions Indication:Diabetes mellitus type II, controlled, with no complications (Renamed from Controlled type 2 diabetes mellitus without complication) Start:07-Aug-2017 Instruction Type:Provider Instructions for Treatment How to access health informa tion online Indication:Diabetes mellitus type II, controlled, with no complications (Renamed from Controlled type 2 diabetes mellitus without complication) Start:01-May-2017 Instruction Type:Patient Education How to access health informa tion online - Detail Indication:Diabetes mellitus type II, controlled, with no complications (Renamed from Controlled type 2 diabetes mellitus without complication) Start:01-May-2017 Instruction Type:Patient Education Patient Instructions Indication:Diabetes mellitus type II, controlled, with no complications (Renamed from Controlled type 2 diabetes mellitus without complication) Start:01-May-2017 Instruction Type:Provider Instructions for Treatment How to access health informa tion online Indication:BMI 32.0-32.9,adult Start:23-Jan-2017 Instruction Type:Patient Education How to access health informa tion online - Detail Indication:BMI 32.0-32.9,adult Start:23-Jan-2017 Instruction Type:Patient Education Patient Instructions Indication:BMI 32.0-32.9,adult Start:23-Jan-2017 Instruction Type:Provider Instructions for Treatment How to access health informa tion online Indication:Diabetes mellitus type II, controlled, with no complications (Renamed from Controlled type 2 diabetes mellitus without complication) Start:17-Oct-2016 Instruction Type:Patient Education How to access health informa tion online - Detail Indication:Diabetes mellitus type II, controlled, with no complications (Renamed from Controlled type 2 diabetes mellitus without complication) Start:17-Oct-2016 Instruction Type:Patient Education Patient Instructions Indication:Diabetes mellitus type II, controlled, with no complications (Renamed from Controlled type 2 diabetes mellitus without complication) Start:17-Oct-2016 Instruction Type:Provider Instructions for Treatment How to access health informa tion online Indication:Diabetes mellitus type II, controlled, with no complications (Renamed from Controlled type 2 diabetes mellitus without complication) Start:11-Jul-2016 Instruction Type:Patient Education How to access health informa tion online - Detail Indication:Diabetes mellitus type II, controlled, with no complications (Renamed from Controlled type 2 diabetes mellitus without complication) Start:11-Jul-2016 Instruction Type:Patient Education Patient Instructions Indication:Diabetes mellitus type II, controlled, with no complications (Renamed from Controlled type 2 diabetes mellitus without complication) Start:11-Jul-2016 Instruction Type:Provider Instructions for Treatment How to access health informa tion online Indication:Flu-like symptoms Start:10-Apr-2016 Instruction Type:Patient Education How to access health informa tion online - Detail Indication:Flu-like symptoms Start:10-Apr-2016 Instruction Type:Patient Education Patient Instructions Indication:Flu-like symptoms Start:10-Apr-2016 Instruction Type:Provider Instructions for Treatment How to access health informa tion online Indication:Diabetes mellitus type II, controlled, with no complications (Renamed from Controlled type 2 diabetes mellitus without complication) Start:21-Mar-2016 Instruction Type:Patient Education How to access health informa tion online - Detail Indication:Diabetes mellitus type II, controlled, with no complications (Renamed from Controlled type 2 diabetes mellitus without complication) Start:21-Mar-2016 Instruction Type:Patient Education Patient Instructions Indication:Diabetes mellitus type II, controlled, with no complications (Renamed from Controlled type 2 diabetes mellitus without complication) Start:21-Mar-2016 Instruction Type:Provider Instructions for Treatment How to access health informa tion online Indication:Diabetes mellitus type II, controlled, with no complications (Renamed from Controlled type 2 diabetes mellitus without complication) Start:14-Dec-2015 Instruction Type:Patient Education How to access health informa tion online - Detail Indication:Diabetes mellitus type II, controlled, with no complications (Renamed from Controlled type 2 diabetes mellitus without complication) Start:14-Dec-2015 Instruction Type:Patient Education Patient Instructions Indication:Diabetes mellitus type II, controlled, with no complications (Renamed from Controlled type 2 diabetes mellitus without complication) Start:14-Dec-2015 Instruction Type:Provider Instructions for Treatment How to access health informa tion online Indication:Diabetes mellitus type 2, uncontrolled (Renamed from Uncontrolled type 2 diabetes mellitus) Start:28-Sep-2015 Instruction Type:Patient Education How to access health informa tion online - Detail Indication:Diabetes mellitus type 2, uncontrolled (Renamed from Uncontrolled type 2 diabetes mellitus) Start:28-Sep-2015 Instruction Type:Patient Education Patient Instructions Indication:Diabetes mellitus type 2, uncontrolled (Renamed from Uncontrolled type 2 diabetes mellitus) Start:28-Sep-2015 Instruction Type:Provider Instructions for Treatment Patient Instructions Indication:Diabetes mellitus type II, controlled, with no complications (Renamed from Controlled type 2 diabetes mellitus without complication) Start:14-Sep-2015 Instruction Type:Provider Instructions for Treatment [facility]; [facility] Work Phone: Instructions* Name Dates Details How to Access Health Informa tion Online using Patient Portal and [employer] Apps Indication:Nonsmoker Start:24-Oct-2022 Instruction Type:Patient Education Patient Instructions Indication:Nonsmoker Start:24-Oct-2022 Instruction Type:Provider Instructions for Treatment Patient Instructions Indication:Nonsmoker Start:06-Aug-2022 Instruction Type:Provider Instructions for Treatment How to Access Health Informa tion Online using Patient Portal and [employer] Indication:Nonsmoker Start:06-Aug-2022 Instruction Type:Patient Education Patient Instructions Indication:BMI 34.0-34.9,adult Start:11-Apr-2022 Instruction Type:Provider Instructions for Treatment How to Access Health Informa tion Online using Patient Portal and [employer] Indication:BMI 34.0-34.9,adult Start:11-Apr-2022 Instruction Type:Patient Education Patient Instructions Indication:BMI 33.0-33.9,adult Start:03-Jan-2022 Instruction Type:Provider Instructions for Treatment How to Access Health Informa tion Online using Patient Portal and [employer] Indication:BMI 33.0-33.9,adult Start:03-Jan-2022 Instruction Type:Patient Education Patient Instructions Indication:Type II diabetes mellitus, well controlled Start:27-Sep-2021 Instruction Type:Provider Instructions for Treatment How to Access Health Informa tion Online using Patient Portal and [employer] Apps Indication:Type II diabetes mellitus, well controlled Start:27-Sep-2021 Instruction Type:Patient Education Patient Instructions Indication:Nonsmoker Start:24-May-2021 Instruction Type:Provider Instructions for Treatment How to Access Health Informa tion Online using Patient Portal and [employer] Indication:Nonsmoker Start:24-May-2021 Instruction Type:Patient Education Patient Instructions Indication:Diabetes mellitus type II, controlled, with no complications (Renamed from Controlled type 2 diabetes mellitus without complication) Start:01-Feb-2021 Instruction Type:Provider Instructions for Treatment How to Access Health Informa tion Online using Patient Portal and [employer] Apps Indication:Diabetes mellitus type II, controlled, with no complications (Renamed from Controlled type 2 diabetes mellitus without complication) Start:01-Feb-2021 Instruction Type:Patient Education Patient Instructions Indication:BMI 30.0-30.9,adult Start:26-Oct-2020 Instruction Type:Provider Instructions for Treatment How to Access Health Informa tion Online using Patient Portal and [employer] Indication:BMI 30.0-30.9,adult Start:26-Oct-2020 Instruction Type:Patient Education How to Access Health Informa tion Online using Patient Portal and [employer] Apps Indication:Nonsmoker Start:20-Jul-2020 Instruction Type:Patient Education Patient Instructions Indication:Nonsmoker Start:20-Jul-2020 Instruction Type:Provider Instructions for Treatment Patient Instructions Indication:Nonsmoker Start:13-Apr-2020 Instruction Type:Provider Instructions for Treatment How to Access Health Informa tion Online using Patient Portal and [employer] Indication:Nonsmoker Start:13-Apr-2020 Instruction Type:Patient Education How to access health informa tion online Indication:Diabetes mellitus type 2, uncontrolled (Renamed from Uncontrolled type 2 diabetes mellitus) Start:25-Nov-2019 Instruction Type:Patient Education How to access health informa tion online - Detail Indication:Diabetes mellitus type 2, uncontrolled (Renamed from Uncontrolled type 2 diabetes mellitus) Start:25-Nov-2019 Instruction Type:Patient Education Patient Instructions Indication:Diabetes mellitus type 2, uncontrolled (Renamed from Uncontrolled type 2 diabetes mellitus) Start:25-Nov-2019 Instruction Type:Provider Instructions for Treatment How to access health informa tion online Indication:Diabetes mellitus type 2, uncontrolled (Renamed from Uncontrolled type 2 diabetes mellitus) Start:22-Jul-2019 Instruction Type:Patient Education How to access health informa tion online - Detail Indication:Diabetes mellitus type 2, uncontrolled (Renamed from Uncontrolled type 2 diabetes mellitus) Start:22-Jul-2019 Instruction Type:Patient Education Patient Instructions Indication:Diabetes mellitus type 2, uncontrolled (Renamed from Uncontrolled type 2 diabetes mellitus) Start:22-Jul-2019 Instruction Type:Provider Instructions for Treatment How to access health informa tion online Indication:Diabetes mellitus type II, controlled, with no complications (Renamed from Controlled type 2 diabetes mellitus without complication) Start:04-Feb-2019 Instruction Type:Patient Education How to access health informa tion online - Detail Indication:Diabetes mellitus type II, controlled, with no complications (Renamed from Controlled type 2 diabetes mellitus without complication) Start:04-Feb-2019 Instruction Type:Patient Education Patient Instructions Indication:Diabetes mellitus type II, controlled, with no complications (Renamed from Controlled type 2 diabetes mellitus without complication) Start:04-Feb-2019 Instruction Type:Provider Instructions for Treatment How to access health informa tion online Indication:Diabetes mellitus type II, controlled, with no complications (Renamed from Controlled type 2 diabetes mellitus without complication) Start:29-Oct-2018 Instruction Type:Patient Education How to access health informa tion online - Detail Indication:Diabetes mellitus type II, controlled, with no complications (Renamed from Controlled type 2 diabetes mellitus without complication) Start:29-Oct-2018 Instruction Type:Patient Education Patient Instructions Indication:Diabetes mellitus type II, controlled, with no complications (Renamed from Controlled type 2 diabetes mellitus without complication) Start:29-Oct-2018 Instruction Type:Provider Instructions for Treatment How to access health informa tion online Indication:Diabetes mellitus type II, controlled, with no complications (Renamed from Controlled type 2 diabetes mellitus without complication) Start:23-Jul-2018 Instruction Type:Patient Education How to access health informa tion online - Detail Indication:Diabetes mellitus type II, controlled, with no complications (Renamed from Controlled type 2 diabetes mellitus without complication) Start:23-Jul-2018 Instruction Type:Patient Education Patient Instructions Indication:Diabetes mellitus type II, controlled, with no complications (Renamed from Controlled type 2 diabetes mellitus without complication) Start:23-Jul-2018 Instruction Type:Provider Instructions for Treatment How to access health informa tion online Indication:Nutritional counseling Start:19-Mar-2018 Instruction Type:Patient Education How to access health informa tion online - Detail Indication:Nutritional counseling Start:19-Mar-2018 Instruction Type:Patient Education Patient Instructions Indication:Nutritional counseling Start:19-Mar-2018 Instruction Type:Provider Instructions for Treatment How to access health informa tion online Indication:BMI 30.0-30.9,adult Start:13-Nov-2017 Instruction Type:Patient Education How to access health informa tion online - Detail Indication:BMI 30.0-30.9,adult Start:13-Nov-2017 Instruction Type:Patient Education Patient Instructions Indication:BMI 30.0-30.9,adult Start:13-Nov-2017 Instruction Type:Provider Instructions for Treatment How to access health informa tion online Indication:Diabetes mellitus type II, controlled, with no complications (Renamed from Controlled type 2 diabetes mellitus without complication) Start:07-Aug-2017 Instruction Type:Patient Education How to access health informa tion online - Detail Indication:Diabetes mellitus type II, controlled, with no complications (Renamed from Controlled type 2 diabetes mellitus without complication) Start:07-Aug-2017 Instruction Type:Patient Education Patient Instructions Indication:Diabetes mellitus type II, controlled, with no complications (Renamed from Controlled type 2 diabetes mellitus without complication) Start:07-Aug-2017 Instruction Type:Provider Instructions for Treatment How to access health informa tion online Indication:Diabetes mellitus type II, controlled, with no complications (Renamed from Controlled type 2 diabetes mellitus without complication) Start:01-May-2017 Instruction Type:Patient Education How to access health informa tion online - Detail Indication:Diabetes mellitus type II, controlled, with no complications (Renamed from Controlled type 2 diabetes mellitus without complication) Start:01-May-2017 Instruction Type:Patient Education Patient Instructions Indication:Diabetes mellitus type II, controlled, with no complications (Renamed from Controlled type 2 diabetes mellitus without complication) Start:01-May-2017 Instruction Type:Provider Instructions for Treatment How to access health informa tion online Indication:BMI 32.0-32.9,adult Start:23-Jan-2017 Instruction Type:Patient Education How to access health informa tion online - Detail Indication:BMI 32.0-32.9,adult Start:23-Jan-2017 Instruction Type:Patient Education Patient Instructions Indication:BMI 32.0-32.9,adult Start:23-Jan-2017 Instruction Type:Provider Instructions for Treatment How to access health informa tion online Indication:Diabetes mellitus type II, controlled, with no complications (Renamed from Controlled type 2 diabetes mellitus without complication) Start:17-Oct-2016 Instruction Type:Patient Education How to access health informa tion online - Detail Indication:Diabetes mellitus type II, controlled, with no complications (Renamed from Controlled type 2 diabetes mellitus without complication) Start:17-Oct-2016 Instruction Type:Patient Education Patient Instructions Indication:Diabetes mellitus type II, controlled, with no complications (Renamed from Controlled type 2 diabetes mellitus without complication) Start:17-Oct-2016 Instruction Type:Provider Instructions for Treatment How to access health informa tion online Indication:Diabetes mellitus type II, controlled, with no complications (Renamed from Controlled type 2 diabetes mellitus without complication) Start:11-Jul-2016 Instruction Type:Patient Education How to access health informa tion online - Detail Indication:Diabetes mellitus type II, controlled, with no complications (Renamed from Controlled type 2 diabetes mellitus without complication) Start:11-Jul-2016 Instruction Type:Patient Education Patient Instructions Indication:Diabetes mellitus type II, controlled, with no complications (Renamed from Controlled type 2 diabetes mellitus without complication) Start:11-Jul-2016 Instruction Type:Provider Instructions for Treatment How to access health informa tion online Indication:Flu-like symptoms Start:10-Apr-2016 Instruction Type:Patient Education How to access health informa tion online - Detail Indication:Flu-like symptoms Start:10-Apr-2016 Instruction Type:Patient Education Patient Instructions Indication:Flu-like symptoms Start:10-Apr-2016 Instruction Type:Provider Instructions for Treatment How to access health informa tion online Indication:Diabetes mellitus type II, controlled, with no complications (Renamed from Controlled type 2 diabetes mellitus without complication) Start:21-Mar-2016 Instruction Type:Patient Education How to access health informa tion online - Detail Indication:Diabetes mellitus type II, controlled, with no complications (Renamed from Controlled type 2 diabetes mellitus without complication) Start:21-Mar-2016 Instruction Type:Patient Education Patient Instructions Indication:Diabetes mellitus type II, controlled, with no complications (Renamed from Controlled type 2 diabetes mellitus without complication) Start:21-Mar-2016 Instruction Type:Provider Instructions for Treatment How to access health informa tion online Indication:Diabetes mellitus type II, controlled, with no complications (Renamed from Controlled type 2 diabetes mellitus without complication) Start:14-Dec-2015 Instruction Type:Patient Education How to access health informa tion online - Detail Indication:Diabetes mellitus type II, controlled, with no complications (Renamed from Controlled type 2 diabetes mellitus without complication) Start:14-Dec-2015 Instruction Type:Patient Education Patient Instructions Indication:Diabetes mellitus type II, controlled, with no complications (Renamed from Controlled type 2 diabetes mellitus without complication) Start:14-Dec-2015 Instruction Type:Provider Instructions for Treatment How to access health informa tion online Indication:Diabetes mellitus type 2, uncontrolled (Renamed from Uncontrolled type 2 diabetes mellitus) Start:28-Sep-2015 Instruction Type:Patient Education How to access health informa tion online - Detail Indication:Diabetes mellitus type 2, uncontrolled (Renamed from Uncontrolled type 2 diabetes mellitus) Start:28-Sep-2015 Instruction Type:Patient Education Patient Instructions Indication:Diabetes mellitus type 2, uncontrolled (Renamed from Uncontrolled type 2 diabetes mellitus) Start:28-Sep-2015 Instruction Type:Provider Instructions for Treatment Patient Instructions Indication:Diabetes mellitus type II, controlled, with no complications (Renamed from Controlled type 2 diabetes mellitus without complication) Start:14-Sep-2015 Instruction Type:Provider Instructions for Treatment [facility]; [facility] Work Phone: Instructions* Name Dates Details How to Access Health Informa tion Online using Patient Portal and [employer] Apps Indication:Nonsmoker Start:24-Oct-2022 Instruction Type:Patient Education Patient Instructions Indication:Nonsmoker Start:24-Oct-2022 Instruction Type:Provider Instructions for Treatment Patient Instructions Indication:Nonsmoker Start:06-Aug-2022 Instruction Type:Provider Instructions for Treatment How to Access Health Informa tion Online using Patient Portal and [employer] Apps Indication:Nonsmoker Start:06-Aug-2022 Instruction Type:Patient Education Patient Instructions Indication:BMI 34.0-34.9,adult Start:11-Apr-2022 Instruction Type:Provider Instructions for Treatment How to Access Health Informa tion Online using Patient Portal and [employer] Apps Indication:BMI 34.0-34.9,adult Start:11-Apr-2022 Instruction Type:Patient Education Patient Instructions Indication:BMI 33.0-33.9,adult Start:03-Jan-2022 Instruction Type:Provider Instructions for Treatment How to Access Health Informa tion Online using Patient Portal and [employer] Apps Indication:BMI 33.0-33.9,adult Start:03-Jan-2022 Instruction Type:Patient Education Patient Instructions Indication:Type II diabetes mellitus, well controlled Start:27-Sep-2021 Instruction Type:Provider Instructions for Treatment How to Access Health Informa tion Online using Patient Portal and [employer] Apps Indication:Type II diabetes mellitus, well controlled Start:27-Sep-2021 Instruction Type:Patient Education Patient Instructions Indication:Nonsmoker Start:24-May-2021 Instruction Type:Provider Instructions for Treatment How to Access Health Informa tion Online using Patient Portal and [employer] Apps Indication:Nonsmoker Start:24-May-2021 Instruction Type:Patient Education Patient Instructions Indication:Diabetes mellitus type II, controlled, with no complications (Renamed from Controlled type 2 diabetes mellitus without complication) Start:01-Feb-2021 Instruction Type:Provider Instructions for Treatment How to Access Health Informa tion Online using Patient Portal and [employer] Apps Indication:Diabetes mellitus type II, controlled, with no complications (Renamed from Controlled type 2 diabetes mellitus without complication) Start:01-Feb-2021 Instruction Type:Patient Education Patient Instructions Indication:BMI 30.0-30.9,adult Start:26-Oct-2020 Instruction Type:Provider Instructions for Treatment How to Access Health Informa tion Online using Patient Portal and [employer] Apps Indication:BMI 30.0-30.9,adult Start:26-Oct-2020 Instruction Type:Patient Education How to Access Health Informa tion Online using Patient Portal and [employer] Apps Indication:Nonsmoker Start:20-Jul-2020 Instruction Type:Patient Education Patient Instructions Indication:Nonsmoker Start:20-Jul-2020 Instruction Type:Provider Instructions for Treatment Patient Instructions Indication:Nonsmoker Start:13-Apr-2020 Instruction Type:Provider Instructions for Treatment How to Access Health Informa tion Online using Patient Portal and [employer] Apps Indication:Nonsmoker Start:13-Apr-2020 Instruction Type:Patient Education How to access health informa tion online Indication:Diabetes mellitus type 2, uncontrolled (Renamed from Uncontrolled type 2 diabetes mellitus) Start:25-Nov-2019 Instruction Type:Patient Education How to access health informa tion online - Detail Indication:Diabetes mellitus type 2, uncontrolled (Renamed from Uncontrolled type 2 diabetes mellitus) Start:25-Nov-2019 Instruction Type:Patient Education Patient Instructions Indication:Diabetes mellitus type 2, uncontrolled (Renamed from Uncontrolled type 2 diabetes mellitus) Start:25-Nov-2019 Instruction Type:Provider Instructions for Treatment How to access health informa tion online Indication:Diabetes mellitus type 2, uncontrolled (Renamed from Uncontrolled type 2 diabetes mellitus) Start:22-Jul-2019 Instruction Type:Patient Education How to access health informa tion online - Detail Indication:Diabetes mellitus type 2, uncontrolled (Renamed from Uncontrolled type 2 diabetes mellitus) Start:22-Jul-2019 Instruction Type:Patient Education Patient Instructions Indication:Diabetes mellitus type 2, uncontrolled (Renamed from Uncontrolled type 2 diabetes mellitus) Start:22-Jul-2019 Instruction Type:Provider Instructions for Treatment How to access health informa tion online Indication:Diabetes mellitus type II, controlled, with no complications (Renamed from Controlled type 2 diabetes mellitus without complication) Start:04-Feb-2019 Instruction Type:Patient Education How to access health informa tion online - Detail Indication:Diabetes mellitus type II, controlled, with no complications (Renamed from Controlled type 2 diabetes mellitus without complication) Start:04-Feb-2019 Instruction Type:Patient Education Patient Instructions Indication:Diabetes mellitus type II, controlled, with no complications (Renamed from Controlled type 2 diabetes mellitus without complication) Start:04-Feb-2019 Instruction Type:Provider Instructions for Treatment How to access health informa tion online Indication:Diabetes mellitus type II, controlled, with no complications (Renamed from Controlled type 2 diabetes mellitus without complication) Start:29-Oct-2018 Instruction Type:Patient Education How to access health informa tion online - Detail Indication:Diabetes mellitus type II, controlled, with no complications (Renamed from Controlled type 2 diabetes mellitus without complication) Start:29-Oct-2018 Instruction Type:Patient Education Patient Instructions Indication:Diabetes mellitus type II, controlled, with no complications (Renamed from Controlled type 2 diabetes mellitus without complication) Start:29-Oct-2018 Instruction Type:Provider Instructions for Treatment How to access health informa tion online Indication:Diabetes mellitus type II, controlled, with no complications (Renamed from Controlled type 2 diabetes mellitus without complication) Start:23-Jul-2018 Instruction Type:Patient Education How to access health informa tion online - Detail Indication:Diabetes mellitus type II, controlled, with no complications (Renamed from Controlled type 2 diabetes mellitus without complication) Start:23-Jul-2018 Instruction Type:Patient Education Patient Instructions Indication:Diabetes mellitus type II, controlled, with no complications (Renamed from Controlled type 2 diabetes mellitus without complication) Start:23-Jul-2018 Instruction Type:Provider Instructions for Treatment How to access health informa tion online Indication:Nutritional counseling Start:19-Mar-2018 Instruction Type:Patient Education How to access health informa tion online - Detail Indication:Nutritional counseling Start:19-Mar-2018 Instruction Type:Patient Education Patient Instructions Indication:Nutritional counseling Start:19-Mar-2018 Instruction Type:Provider Instructions for Treatment How to access health informa tion online Indication:BMI 30.0-30.9,adult Start:13-Nov-2017 Instruction Type:Patient Education How to access health informa tion online - Detail Indication:BMI 30.0-30.9,adult Start:13-Nov-2017 Instruction Type:Patient Education Patient Instructions Indication:BMI 30.0-30.9,adult Start:13-Nov-2017 Instruction Type:Provider Instructions for Treatment How to access health informa tion online Indication:Diabetes mellitus type II, controlled, with no complications (Renamed from Controlled type 2 diabetes mellitus without complication) Start:07-Aug-2017 Instruction Type:Patient Education How to access health informa tion online - Detail Indication:Diabetes mellitus type II, controlled, with no complications (Renamed from Controlled type 2 diabetes mellitus without complication) Start:07-Aug-2017 Instruction Type:Patient Education Patient Instructions Indication:Diabetes mellitus type II, controlled, with no complications (Renamed from Controlled type 2 diabetes mellitus without complication) Start:07-Aug-2017 Instruction Type:Provider Instructions for Treatment How to access health informa tion online Indication:Diabetes mellitus type II, controlled, with no complications (Renamed from Controlled type 2 diabetes mellitus without complication) Start:01-May-2017 Instruction Type:Patient Education How to access health informa tion online - Detail Indication:Diabetes mellitus type II, controlled, with no complications (Renamed from Controlled type 2 diabetes mellitus without complication) Start:01-May-2017 Instruction Type:Patient Education Patient Instructions Indication:Diabetes mellitus type II, controlled, with no complications (Renamed from Controlled type 2 diabetes mellitus without complication) Start:01-May-2017 Instruction Type:Provider Instructions for Treatment How to access health informa tion online Indication:BMI 32.0-32.9,adult Start:23-Jan-2017 Instruction Type:Patient Education How to access health informa tion online - Detail Indication:BMI 32.0-32.9,adult Start:23-Jan-2017 Instruction Type:Patient Education Patient Instructions Indication:BMI 32.0-32.9,adult Start:23-Jan-2017 Instruction Type:Provider Instructions for Treatment How to access health informa tion online Indication:Diabetes mellitus type II, controlled, with no complications (Renamed from Controlled type 2 diabetes mellitus without complication) Start:17-Oct-2016 Instruction Type:Patient Education How to access health informa tion online - Detail Indication:Diabetes mellitus type II, controlled, with no complications (Renamed from Controlled type 2 diabetes mellitus without complication) Start:17-Oct-2016 Instruction Type:Patient Education Patient Instructions Indication:Diabetes mellitus type II, controlled, with no complications (Renamed from Controlled type 2 diabetes mellitus without complication) Start:17-Oct-2016 Instruction Type:Provider Instructions for Treatment How to access health informa tion online Indication:Diabetes mellitus type II, controlled, with no complications (Renamed from Controlled type 2 diabetes mellitus without complication) Start:11-Jul-2016 Instruction Type:Patient Education How to access health informa tion online - Detail Indication:Diabetes mellitus type II, controlled, with no complications (Renamed from Controlled type 2 diabetes mellitus without complication) Start:11-Jul-2016 Instruction Type:Patient Education Patient Instructions Indication:Diabetes mellitus type II, controlled, with no complications (Renamed from Controlled type 2 diabetes mellitus without complication) Start:11-Jul-2016 Instruction Type:Provider Instructions for Treatment How to access health informa tion online Indication:Flu-like symptoms Start:10-Apr-2016 Instruction Type:Patient Education How to access health informa tion online - Detail Indication:Flu-like symptoms Start:10-Apr-2016 Instruction Type:Patient Education Patient Instructions Indication:Flu-like symptoms Start:10-Apr-2016 Instruction Type:Provider Instructions for Treatment How to access health informa tion online Indication:Diabetes mellitus type II, controlled, with no complications (Renamed from Controlled type 2 diabetes mellitus without complication) Start:21-Mar-2016 Instruction Type:Patient Education How to access health informa tion online - Detail Indication:Diabetes mellitus type II, controlled, with no complications (Renamed from Controlled type 2 diabetes mellitus without complication) Start:21-Mar-2016 Instruction Type:Patient Education Patient Instructions Indication:Diabetes mellitus type II, controlled, with no complications (Renamed from Controlled type 2 diabetes mellitus without complication) Start:21-Mar-2016 Instruction Type:Provider Instructions for Treatment How to access health informa tion online Indication:Diabetes mellitus type II, controlled, with no complications (Renamed from Controlled type 2 diabetes mellitus without complication) Start:14-Dec-2015 Instruction Type:Patient Education How to access health informa tion online - Detail Indication:Diabetes mellitus type II, controlled, with no complications (Renamed from Controlled type 2 diabetes mellitus without complication) Start:14-Dec-2015 Instruction Type:Patient Education Patient Instructions Indication:Diabetes mellitus type II, controlled, with no complications (Renamed from Controlled type 2 diabetes mellitus without complication) Start:14-Dec-2015 Instruction Type:Provider Instructions for Treatment How to access health informa tion online Indication:Diabetes mellitus type 2, uncontrolled (Renamed from Uncontrolled type 2 diabetes mellitus) Start:28-Sep-2015 Instruction Type:Patient Education How to access [employer] online - Detail Indication:Diabetes mellitus type 2, uncontrolled (Renamed from Uncontrolled type 2 diabetes mellitus) Start:28-Sep-2015 Instruction Type:Patient Education Patient Instructions Indication:Diabetes mellitus type 2, uncontrolled (Renamed from Uncontrolled type 2 diabetes mellitus) Start:28-Sep-2015 Instruction Type:Provider Instructions for Treatment Patient Instructions Indication:Diabetes mellitus type II, controlled, with no complications (Renamed from Controlled type 2 diabetes mellitus without complication) Start:14-Sep-2015 Instruction Type:Provider Instructions for Treatment [facility]; [facility] Work Phone: Family History Unknown Family Member Name Dates Details Cancer Comments:Maternal Grandfathe r. Status:Active Heart disease Comments:Mother. Paternal Gr andfather. Status:Active Hypertension Comments:Father. Status:Active Kidney Disease Comments:Father. Status:Active Unknown Family Member Name Dates Details Cancer Comments:Maternal Grandfathe r. Status:Active Heart disease Comments:Mother. Paternal Gr andfather. Status:Active Hypertension Comments:Father. Status:Active Kidney Disease Comments:Father. Status:Active Unknown Family Member Name Dates Details Cancer Comments:Maternal Grandfathe r. Status:Active Heart disease Comments:Mother. Paternal Gr andfather. Status:Active Hypertension Comments:Father. Status:Active Kidney Disease Comments:Father. Status:Active Unknown Family Member Name Dates Details Cancer Comments:Maternal Grandfathe r. Status:Active Heart disease Comments:Mother. Paternal Gr andfather. Status:Active Hypertension Comments:Father. Status:Active Kidney Disease Comments:Father. Status:Active Unknown Family Member Name Dates Details Cancer Comments:Maternal Grandfathe r. Status:Active Heart disease Comments:Mother. Paternal Gr andfather. Status:Active Hypertension Comments:Father. Status:Active Kidney Disease Comments:Father. Status:Active Unknown Family Member Name Dates Details Cancer Comments:Maternal Grandfathe r. Status:Active Heart disease Comments:Mother. Paternal Gr andfather. Status:Active Hypertension Comments:Father. Status:Active Kidney Disease Comments:Father. Status:Active Unknown Family Member Name Dates Details Cancer Comments:Maternal Grandfathe r. Status:Active Heart disease Comments:Mother. Paternal Gr andfather. Status:Active Hypertension Comments:Father. Status:Active Kidney Disease Comments:Father. Status:Active Unknown Family Member Name Dates Details Cancer Comments:Maternal Grandfathe r. Status:Active Heart disease Comments:Mother. Paternal Gr andfather. Status:Active Hypertension Comments:Father. Status:Active Kidney Disease Comments:Father. Status:Active Unknown Family Member Name Dates Details Cancer Comments:Maternal Grandfathe r. Status:Active Heart disease Comments:Mother. Paternal Gr andfather. Status:Active Hypertension Comments:Father. Status:Active Kidney Disease Comments:Father. Status:Active Unknown Family Member Name Dates Details Cancer Comments:Maternal Grandfathe r. Status:Active Heart disease Comments:Mother. Paternal Gr andfather. Status:Active Hypertension Comments:Father. Status:Active Kidney Disease Comments:Father. Status:Active Unknown Family Member Name Dates Details Cancer Comments:Maternal Grandfathe r. Status:Active Heart disease Comments:Mother. Paternal Gr andfather. Status:Active Hypertension Comments:Father. Status:Active Kidney Disease Comments:Father. Status:Active Unknown Family Member Name Dates Details Cancer Comments:Maternal Grandfathe r. Status:Active Heart disease Comments:Mother. Paternal Gr andfather. Status:Active Hypertension Comments:Father. Status:Active Kidney Disease Comments:Father. Status:Active Unknown Family Member Name Dates Details Cancer Comments:Maternal Grandfathe r. Status:Active Heart disease Comments:Mother. Paternal Gr andfather. Status:Active Hypertension Comments:Father. Status:Active Kidney Disease Comments:Father. Status:Active Unknown Family Member Name Dates Details Cancer Comments:Maternal Grandfathe r. Status:Active Heart disease Comments:Mother. Paternal Gr andfather. Status:Active Hypertension Comments:Father. Status:Active Kidney Disease Comments:Father. Status:Active Unknown Family Member Name Dates Details Cancer Comments:Maternal Grandfathe r. Status:Active Heart disease Comments:Mother. Paternal Gr andfather. Status:Active Hypertension Comments:Father. Status:Active Kidney Disease Comments:Father. Status:Active Unknown Family Member Name Dates Details Cancer Comments:Maternal Grandfathe r. Status:Active Heart disease Comments:Mother. Paternal Gr andfather. Status:Active Hypertension Comments:Father. Status:Active Kidney Disease Comments:Father. Status:Active Unknown Family Member Name Dates Details Cancer Comments:Maternal Grandfathe r. Status:Active Heart disease Comments:Mother. Paternal Gr andfather. Status:Active Hypertension Comments:Father. Status:Active Kidney Disease Comments:Father. Status:Active Unknown Family Member Name Dates Details Cancer Comments:Maternal Grandfathe r. Status:Active Heart disease Comments:Mother. Paternal Gr andfather. Status:Active Hypertension Comments:Father. Status:Active Kidney Disease Comments:Father. Status:Active Unknown Family Member Name Dates Details Cancer Comments:Maternal Grandfathe r. Status:Active Heart disease Comments:Mother. Paternal Gr andfather. Status:Active Hypertension Comments:Father. Status:Active Kidney Disease Comments:Father. Status:Active Unknown Family Member Name Dates Details Cancer Comments:Maternal Grandfathe r. Status:Active Heart disease Comments:Mother. Paternal Gr andfather. Status:Active Hypertension Comments:Father. Status:Active Kidney Disease Comments:Father. Status:Active Unknown Family Member Name Dates Details Cancer Comments:Maternal Grandfathe r. Status:Active Heart disease Comments:Mother. Paternal Gr andfather. Status:Active Hypertension Comments:Father. Status:Active Kidney Disease Comments:Father. Status:Active Unknown Family Member Name Dates Details Cancer Comments:Maternal Grandfathe r. Status:Active Heart disease Comments:Mother. Paternal Gr andfather. Status:Active Hypertension Comments:Father. Status:Active Kidney Disease Comments:Father. Status:Active Unknown Family Member Name Dates Details Cancer Comments:Maternal Grandfathe r. Status:Active Heart disease Comments:Mother. Paternal Gr andfather. Status:Active Hypertension Comments:Father. Status:Active Kidney Disease Comments:Father. Status:Active Unknown Family Member Name Dates Details Cancer Comments:Maternal Grandfathe r. Status:Active Heart disease Comments:Mother. Paternal Gr andfather. Status:Active Hypertension Comments:Father. Status:Active Kidney Disease Comments:Father. Status:Active Unknown Family Member Name Dates Details Cancer Comments:Maternal Grandfathe r. Status:Active Heart disease Comments:Mother. Paternal Gr andfather. Status:Active Hypertension Comments:Father. Status:Active Kidney Disease Comments:Father. Status:Active Unknown Family Member Name Dates Details Cancer Comments:Maternal Grandfathe r. Status:Active Heart disease Comments:Mother. Paternal Gr andfather. Status:Active Hypertension Comments:Father. Status:Active Kidney Disease Comments:Father. Status:Active Unknown Family Member Name Dates Details Cancer Comments:Maternal Grandfathe r. Status:Active Heart disease Comments:Mother. Paternal Gr andfather. Status:Active Hypertension Comments:Father. Status:Active Kidney Disease Comments:Father. Status:Active Unknown Family Member Name Dates Details Cancer Comments:Maternal Grandfathe r. Status:Active Heart disease Comments:Mother. Paternal Gr andfather. Status:Active Hypertension Comments:Father. Status:Active Kidney Disease Comments:Father. Status:Active Unknown Family Member Name Dates Details Cancer Comments:Maternal Grandfathe r. Status:Active Heart disease Comments:Mother. Paternal Gr andfather. Status:Active Hypertension Comments:Father. Status:Active Kidney Disease Comments:Father. Status:Active Unknown Family Member Name Dates Details Cancer Comments:Maternal Grandfathe r. Status:Active Heart disease Comments:Mother. Paternal Gr andfather. Status:Active Hypertension Comments:Father. Status:Active Kidney Disease Comments:Father. Status:Active Unknown Family Member Name Dates Details Cancer Comments:Maternal Grandfathe r. Status:Active Heart disease Comments:Mother. Paternal Gr andfather. Status:Active Hypertension Comments:Father. Status:Active Kidney Disease Comments:Father. Status:Active Unknown Family Member Name Dates Details Cancer Comments:Maternal Grandfathe r. Status:Active Heart disease Comments:Mother. Paternal Gr andfather. Status:Active Hypertension Comments:Father. Status:Active Kidney Disease Comments:Father. Status:Active Unknown Family Member Name Dates Details Cancer Comments:Maternal Grandfathe r. Status:Active Heart disease Comments:Mother. Paternal Gr andfather. Status:Active Hypertension Comments:Father. Status:Active Kidney Disease Comments:Father. Status:Active Unknown Family Member Name Dates Details Cancer Comments:Maternal Grandfathe r. Status:Active Heart disease Comments:Mother. Paternal Gr andfather. Status:Active Hypertension Comments:Father. Status:Active Kidney Disease Comments:Father. Status:Active Unknown Family Member Name Dates Details Cancer Comments:Maternal Grandfathe r. Status:Active Heart disease Comments:Mother. Paternal Gr andfather. Status:Active Hypertension Comments:Father. Status:Active Kidney Disease Comments:Father. Status:Active Instructions Name Dates Details BMI 30.0-30.9,adult : How to access health information online Indication:BMI 30.0-30.9,adult BMI 30.0-30.9,adult : How to access health information online - Detail Indication:BMI 30.0-30.9,adult BMI 30.0-30.9,adult : Patien t Instructions Indication:BMI 30.0-30.9,adult Diabetes mellitus type II, c ontrolled, with no complications (Renamed from Controlled type 2 diabetes mellitus without complication) : How to access health information online Indication:Diabetes mellitus type II, controlled, with no complications (Renamed from Controlled type 2 diabetes mellitus without complication) Diabetes mellitus type II, c ontrolled, with no complications (Renamed from Controlled type 2 diabetes mellitus without complication) : How to access health information online - Detail Indication:Diabetes mellitus type II, controlled, with no complications (Renamed from Controlled type 2 diabetes mellitus without complication) Diabetes mellitus type II, c ontrolled, with no complications (Renamed from Controlled type 2 diabetes mellitus without complication) : Patient Instructions Indication:Diabetes mellitus type II, controlled, with no complications (Renamed from Controlled type 2 diabetes mellitus without complication) BMI 32.0-32.9,adult : How to access health information online Indication:BMI 32.0-32.9,adult BMI 32.0-32.9,adult : How to access health information online - Detail Indication:BMI 32.0-32.9,adult BMI 32.0-32.9,adult : Patien t Instructions Indication:BMI 32.0-32.9,adult Flu-like symptoms : How to a ccess health information online Indication:Flu-like symptoms Flu-like symptoms : How to a ccess health information online - Detail Indication:Flu-like symptoms Flu-like symptoms : Patient Instructions Indication:Flu-like symptoms Diabetes mellitus type 2, un controlled (Renamed from Uncontrolled type 2 diabetes mellitus) : How to access health information online Indication:Diabetes mellitus type 2, uncontrolled (Renamed from Uncontrolled type 2 diabetes mellitus) Diabetes mellitus type 2, un controlled (Renamed from Uncontrolled type 2 diabetes mellitus) : How to access health information online - Detail Indication:Diabetes mellitus type 2, uncontrolled (Renamed from Uncontrolled type 2 diabetes mellitus) Diabetes mellitus type 2, un controlled (Renamed from Uncontrolled type 2 diabetes mellitus) : Patient Instructions Indication:Diabetes mellitus type 2, uncontrolled (Renamed from Uncontrolled type 2 diabetes mellitus) Name Dates Details Nonsmoker : How to access he alth information online Indication:Nonsmoker Nonsmoker : How to access he alth information online - Detail Indication:Nonsmoker Nonsmoker : Patient Instruct ions Indication:Nonsmoker BMI 30.0-30.9,adult : How to access health information online Indication:BMI 30.0-30.9,adult BMI 30.0-30.9,adult : How to access health information online - Detail Indication:BMI 30.0-30.9,adult BMI 30.0-30.9,adult : Patien t Instructions Indication:BMI 30.0-30.9,adult Diabetes mellitus type II, c ontrolled, with no complications (Renamed from Controlled type 2 diabetes mellitus without complication) : How to access health information online Indication:Diabetes mellitus type II, controlled, with no complications (Renamed from Controlled type 2 diabetes mellitus without complication) Diabetes mellitus type II, c ontrolled, with no complications (Renamed from Controlled type 2 diabetes mellitus without complication) : How to access health information online - Detail Indication:Diabetes mellitus type II, controlled, with no complications (Renamed from Controlled type 2 diabetes mellitus without complication) Diabetes mellitus type II, c ontrolled, with no complications (Renamed from Controlled type 2 diabetes mellitus without complication) : Patient Instructions Indication:Diabetes mellitus type II, controlled, with no complications (Renamed from Controlled type 2 diabetes mellitus without complication) BMI 32.0-32.9,adult : How to access health information online Indication:BMI 32.0-32.9,adult BMI 32.0-32.9,adult : How to access health information online - Detail Indication:BMI 32.0-32.9,adult BMI 32.0-32.9,adult : Patien t Instructions Indication:BMI 32.0-32.9,adult Flu-like symptoms : How to a ccess health information online Indication:Flu-like symptoms Flu-like symptoms : How to a ccess health information online - Detail Indication:Flu-like symptoms Flu-like symptoms : Patient Instructions Indication:Flu-like symptoms Diabetes mellitus type 2, un controlled (Renamed from Uncontrolled type 2 diabetes mellitus) : How to access health information online Indication:Diabetes mellitus type 2, uncontrolled (Renamed from Uncontrolled type 2 diabetes mellitus) Diabetes mellitus type 2, un controlled (Renamed from Uncontrolled type 2 diabetes mellitus) : How to access health information online - Detail Indication:Diabetes mellitus type 2, uncontrolled (Renamed from Uncontrolled type 2 diabetes mellitus) Diabetes mellitus type 2, un controlled (Renamed from Uncontrolled type 2 diabetes mellitus) : Patient Instructions Indication:Diabetes mellitus type 2, uncontrolled (Renamed from Uncontrolled type 2 diabetes mellitus) Name Dates Details How to access health informa tion online Indication:Nutritional counseling Start:19-Mar-2018 Instruction Type:Patient Education How to access health informa tion online - Detail Indication:Nutritional counseling Start:19-Mar-2018 Instruction Type:Patient Education Patient Instructions Indication:Nutritional counseling Start:19-Mar-2018 Instruction Type:Provider Instructions for Treatment How to access health informa tion online Indication:BMI 30.0-30.9,adult Start:13-Nov-2017 Instruction Type:Patient Education How to access health informa tion online - Detail Indication:BMI 30.0-30.9,adult Start:13-Nov-2017 Instruction Type:Patient Education Patient Instructions Indication:BMI 30.0-30.9,adult Start:13-Nov-2017 Instruction Type:Provider Instructions for Treatment How to access health informa tion online Indication:Diabetes mellitus type II, controlled, with no complications (Renamed from Controlled type 2 diabetes mellitus without complication) Start:07-Aug-2017 Instruction Type:Patient Education How to access health informa tion online - Detail Indication:Diabetes mellitus type II, controlled, with no complications (Renamed from Controlled type 2 diabetes mellitus without complication) Start:07-Aug-2017 Instruction Type:Patient Education Patient Instructions Indication:Diabetes mellitus type II, controlled, with no complications (Renamed from Controlled type 2 diabetes mellitus without complication) Start:07-Aug-2017 Instruction Type:Provider Instructions for Treatment How to access health informa tion online Indication:Diabetes mellitus type II, controlled, with no complications (Renamed from Controlled type 2 diabetes mellitus without complication) Start:01-May-2017 Instruction Type:Patient Education How to access health informa tion online - Detail Indication:Diabetes mellitus type II, controlled, with no complications (Renamed from Controlled type 2 diabetes mellitus without complication) Start:01-May-2017 Instruction Type:Patient Education Patient Instructions Indication:Diabetes mellitus type II, controlled, with no complications (Renamed from Controlled type 2 diabetes mellitus without complication) Start:01-May-2017 Instruction Type:Provider Instructions for Treatment How to access health informa tion online Indication:BMI 32.0-32.9,adult Start:23-Jan-2017 Instruction Type:Patient Education How to access health informa tion online - Detail Indication:BMI 32.0-32.9,adult Start:23-Jan-2017 Instruction Type:Patient Education Patient Instructions Indication:BMI 32.0-32.9,adult Start:23-Jan-2017 Instruction Type:Provider Instructions for Treatment How to access health informa tion online Indication:Diabetes mellitus type II, controlled, with no complications (Renamed from Controlled type 2 diabetes mellitus without complication) Start:17-Oct-2016 Instruction Type:Patient Education How to access health informa tion online - Detail Indication:Diabetes mellitus type II, controlled, with no complications (Renamed from Controlled type 2 diabetes mellitus without complication) Start:17-Oct-2016 Instruction Type:Patient Education Patient Instructions Indication:Diabetes mellitus type II, controlled, with no complications (Renamed from Controlled type 2 diabetes mellitus without complication) Start:17-Oct-2016 Instruction Type:Provider Instructions for Treatment How to access health informa tion online Indication:Diabetes mellitus type II, controlled, with no complications (Renamed from Controlled type 2 diabetes mellitus without complication) Start:11-Jul-2016 Instruction Type:Patient Education How to access health informa tion online - Detail Indication:Diabetes mellitus type II, controlled, with no complications (Renamed from Controlled type 2 diabetes mellitus without complication) Start:11-Jul-2016 Instruction Type:Patient Education Patient Instructions Indication:Diabetes mellitus type II, controlled, with no complications (Renamed from Controlled type 2 diabetes mellitus without complication) Start:11-Jul-2016 Instruction Type:Provider Instructions for Treatment How to access health informa tion online Indication:Flu-like symptoms Start:10-Apr-2016 Instruction Type:Patient Education How to access health informa tion online - Detail Indication:Flu-like symptoms Start:10-Apr-2016 Instruction Type:Patient Education Patient Instructions Indication:Flu-like symptoms Start:10-Apr-2016 Instruction Type:Provider Instructions for Treatment How to access health informa tion online Indication:Diabetes mellitus type II, controlled, with no complications (Renamed from Controlled type 2 diabetes mellitus without complication) Start:21-Mar-2016 Instruction Type:Patient Education How to access health informa tion online - Detail Indication:Diabetes mellitus type II, controlled, with no complications (Renamed from Controlled type 2 diabetes mellitus without complication) Start:21-Mar-2016 Instruction Type:Patient Education Patient Instructions Indication:Diabetes mellitus type II, controlled, with no complications (Renamed from Controlled type 2 diabetes mellitus without complication) Start:21-Mar-2016 Instruction Type:Provider Instructions for Treatment How to access health informa tion online Indication:Diabetes mellitus type II, controlled, with no complications (Renamed from Controlled type 2 diabetes mellitus without complication) Start:14-Dec-2015 Instruction Type:Patient Education How to access health informa tion online - Detail Indication:Diabetes mellitus type II, controlled, with no complications (Renamed from Controlled type 2 diabetes mellitus without complication) Start:14-Dec-2015 Instruction Type:Patient Education Patient Instructions Indication:Diabetes mellitus type II, controlled, with no complications (Renamed from Controlled type 2 diabetes mellitus without complication) Start:14-Dec-2015 Instruction Type:Provider Instructions for Treatment How to access health informa tion online Indication:Diabetes mellitus type 2, uncontrolled (Renamed from Uncontrolled type 2 diabetes mellitus) Start:28-Sep-2015 Instruction Type:Patient Education How to access health informa tion online - Detail Indication:Diabetes mellitus type 2, uncontrolled (Renamed from Uncontrolled type 2 diabetes mellitus) Start:28-Sep-2015 Instruction Type:Patient Education Patient Instructions Indication:Diabetes mellitus type 2, uncontrolled (Renamed from Uncontrolled type 2 diabetes mellitus) Start:28-Sep-2015 Instruction Type:Provider Instructions for Treatment Patient Instructions Indication:Diabetes mellitus type II, controlled, with no complications (Renamed from Controlled type 2 diabetes mellitus without complication) Start:14-Sep-2015 Instruction Type:Provider Instructions for Treatment Name Dates Details How to access health informa tion online Indication:Diabetes mellitus type II, controlled, with no complications (Renamed from Controlled type 2 diabetes mellitus without complication) Start:23-Jul-2018 Instruction Type:Patient Education How to access health informa tion online - Detail Indication:Diabetes mellitus type II, controlled, with no complications (Renamed from Controlled type 2 diabetes mellitus without complication) Start:23-Jul-2018 Instruction Type:Patient Education Patient Instructions Indication:Diabetes mellitus type II, controlled, with no complications (Renamed from Controlled type 2 diabetes mellitus without complication) Start:23-Jul-2018 Instruction Type:Provider Instructions for Treatment How to access health informa tion online Indication:Nutritional counseling Start:19-Mar-2018 Instruction Type:Patient Education How to access health informa tion online - Detail Indication:Nutritional counseling Start:19-Mar-2018 Instruction Type:Patient Education Patient Instructions Indication:Nutritional counseling Start:19-Mar-2018 Instruction Type:Provider Instructions for Treatment How to access health informa tion online Indication:BMI 30.0-30.9,adult Start:13-Nov-2017 Instruction Type:Patient Education How to access health informa tion online - Detail Indication:BMI 30.0-30.9,adult Start:13-Nov-2017 Instruction Type:Patient Education Patient Instructions Indication:BMI 30.0-30.9,adult Start:13-Nov-2017 Instruction Type:Provider Instructions for Treatment How to access health informa tion online Indication:Diabetes mellitus type II, controlled, with no complications (Renamed from Controlled type 2 diabetes mellitus without complication) Start:07-Aug-2017 Instruction Type:Patient Education How to access health informa tion online - Detail Indication:Diabetes mellitus type II, controlled, with no complications (Renamed from Controlled type 2 diabetes mellitus without complication) Start:07-Aug-2017 Instruction Type:Patient Education Patient Instructions Indication:Diabetes mellitus type II, controlled, with no complications (Renamed from Controlled type 2 diabetes mellitus without complication) Start:07-Aug-2017 Instruction Type:Provider Instructions for Treatment How to access health informa tion online Indication:Diabetes mellitus type II, controlled, with no complications (Renamed from Controlled type 2 diabetes mellitus without complication) Start:01-May-2017 Instruction Type:Patient Education How to access health informa tion online - Detail Indication:Diabetes mellitus type II, controlled, with no complications (Renamed from Controlled type 2 diabetes mellitus without complication) Start:01-May-2017 Instruction Type:Patient Education Patient Instructions Indication:Diabetes mellitus type II, controlled, with no complications (Renamed from Controlled type 2 diabetes mellitus without complication) Start:01-May-2017 Instruction Type:Provider Instructions for Treatment How to access health informa tion online Indication:BMI 32.0-32.9,adult Start:23-Jan-2017 Instruction Type:Patient Education How to access health informa tion online - Detail Indication:BMI 32.0-32.9,adult Start:23-Jan-2017 Instruction Type:Patient Education Patient Instructions Indication:BMI 32.0-32.9,adult Start:23-Jan-2017 Instruction Type:Provider Instructions for Treatment How to access health informa tion online Indication:Diabetes mellitus type II, controlled, with no complications (Renamed from Controlled type 2 diabetes mellitus without complication) Start:17-Oct-2016 Instruction Type:Patient Education How to access health informa tion online - Detail Indication:Diabetes mellitus type II, controlled, with no complications (Renamed from Controlled type 2 diabetes mellitus without complication) Start:17-Oct-2016 Instruction Type:Patient Education Patient Instructions Indication:Diabetes mellitus type II, controlled, with no complications (Renamed from Controlled type 2 diabetes mellitus without complication) Start:17-Oct-2016 Instruction Type:Provider Instructions for Treatment How to access health informa tion online Indication:Diabetes mellitus type II, controlled, with no complications (Renamed from Controlled type 2 diabetes mellitus without complication) Start:11-Jul-2016 Instruction Type:Patient Education How to access health informa tion online - Detail Indication:Diabetes mellitus type II, controlled, with no complications (Renamed from Controlled type 2 diabetes mellitus without complication) Start:11-Jul-2016 Instruction Type:Patient Education Patient Instructions Indication:Diabetes mellitus type II, controlled, with no complications (Renamed from Controlled type 2 diabetes mellitus without complication) Start:11-Jul-2016 Instruction Type:Provider Instructions for Treatment How to access health informa tion online Indication:Flu-like symptoms Start:10-Apr-2016 Instruction Type:Patient Education How to access health informa tion online - Detail Indication:Flu-like symptoms Start:10-Apr-2016 Instruction Type:Patient Education Patient Instructions Indication:Flu-like symptoms Start:10-Apr-2016 Instruction Type:Provider Instructions for Treatment How to access health informa tion online Indication:Diabetes mellitus type II, controlled, with no complications (Renamed from Controlled type 2 diabetes mellitus without complication) Start:21-Mar-2016 Instruction Type:Patient Education How to access health informa tion online - Detail Indication:Diabetes mellitus type II, controlled, with no complications (Renamed from Controlled type 2 diabetes mellitus without complication) Start:21-Mar-2016 Instruction Type:Patient Education Patient Instructions Indication:Diabetes mellitus type II, controlled, with no complications (Renamed from Controlled type 2 diabetes mellitus without complication) Start:21-Mar-2016 Instruction Type:Provider Instructions for Treatment How to access health informa tion online Indication:Diabetes mellitus type II, controlled, with no complications (Renamed from Controlled type 2 diabetes mellitus without complication) Start:14-Dec-2015 Instruction Type:Patient Education How to access health informa tion online - Detail Indication:Diabetes mellitus type II, controlled, with no complications (Renamed from Controlled type 2 diabetes mellitus without complication) Start:14-Dec-2015 Instruction Type:Patient Education Patient Instructions Indication:Diabetes mellitus type II, controlled, with no complications (Renamed from Controlled type 2 diabetes mellitus without complication) Start:14-Dec-2015 Instruction Type:Provider Instructions for Treatment How to access health informa tion online Indication:Diabetes mellitus type 2, uncontrolled (Renamed from Uncontrolled type 2 diabetes mellitus) Start:28-Sep-2015 Instruction Type:Patient Education How to access health informa tion online - Detail Indication:Diabetes mellitus type 2, uncontrolled (Renamed from Uncontrolled type 2 diabetes mellitus) Start:28-Sep-2015 Instruction Type:Patient Education Patient Instructions Indication:Diabetes mellitus type 2, uncontrolled (Renamed from Uncontrolled type 2 diabetes mellitus) Start:28-Sep-2015 Instruction Type:Provider Instructions for Treatment Patient Instructions Indication:Diabetes mellitus type II, controlled, with no complications (Renamed from Controlled type 2 diabetes mellitus without complication) Start:14-Sep-2015 Instruction Type:Provider Instructions for Treatment Name Dates Details How to access health informa tion online Indication:Diabetes mellitus type II, controlled, with no complications (Renamed from Controlled type 2 diabetes mellitus without complication) Start:23-Jul-2018 Instruction Type:Patient Education How to access health informa tion online - Detail Indication:Diabetes mellitus type II, controlled, with no complications (Renamed from Controlled type 2 diabetes mellitus without complication) Start:23-Jul-2018 Instruction Type:Patient Education Patient Instructions Indication:Diabetes mellitus type II, controlled, with no complications (Renamed from Controlled type 2 diabetes mellitus without complication) Start:23-Jul-2018 Instruction Type:Provider Instructions for Treatment How to access health informa tion online Indication:Nutritional counseling Start:19-Mar-2018 Instruction Type:Patient Education How to access health informa tion online - Detail Indication:Nutritional counseling Start:19-Mar-2018 Instruction Type:Patient Education Patient Instructions Indication:Nutritional counseling Start:19-Mar-2018 Instruction Type:Provider Instructions for Treatment How to access health informa tion online Indication:BMI 30.0-30.9,adult Start:13-Nov-2017 Instruction Type:Patient Education How to access health informa tion online - Detail Indication:BMI 30.0-30.9,adult Start:13-Nov-2017 Instruction Type:Patient Education Patient Instructions Indication:BMI 30.0-30.9,adult Start:13-Nov-2017 Instruction Type:Provider Instructions for Treatment How to access health informa tion online Indication:Diabetes mellitus type II, controlled, with no complications (Renamed from Controlled type 2 diabetes mellitus without complication) Start:07-Aug-2017 Instruction Type:Patient Education How to access health informa tion online - Detail Indication:Diabetes mellitus type II, controlled, with no complications (Renamed from Controlled type 2 diabetes mellitus without complication) Start:07-Aug-2017 Instruction Type:Patient Education Patient Instructions Indication:Diabetes mellitus type II, controlled, with no complications (Renamed from Controlled type 2 diabetes mellitus without complication) Start:07-Aug-2017 Instruction Type:Provider Instructions for Treatment How to access health informa tion online Indication:Diabetes mellitus type II, controlled, with no complications (Renamed from Controlled type 2 diabetes mellitus without complication) Start:01-May-2017 Instruction Type:Patient Education How to access health informa tion online - Detail Indication:Diabetes mellitus type II, controlled, with no complications (Renamed from Controlled type 2 diabetes mellitus without complication) Start:01-May-2017 Instruction Type:Patient Education Patient Instructions Indication:Diabetes mellitus type II, controlled, with no complications (Renamed from Controlled type 2 diabetes mellitus without complication) Start:01-May-2017 Instruction Type:Provider Instructions for Treatment How to access health informa tion online Indication:BMI 32.0-32.9,adult Start:23-Jan-2017 Instruction Type:Patient Education How to access health informa tion online - Detail Indication:BMI 32.0-32.9,adult Start:23-Jan-2017 Instruction Type:Patient Education Patient Instructions Indication:BMI 32.0-32.9,adult Start:23-Jan-2017 Instruction Type:Provider Instructions for Treatment How to access health informa tion online Indication:Diabetes mellitus type II, controlled, with no complications (Renamed from Controlled type 2 diabetes mellitus without complication) Start:17-Oct-2016 Instruction Type:Patient Education How to access health informa tion online - Detail Indication:Diabetes mellitus type II, controlled, with no complications (Renamed from Controlled type 2 diabetes mellitus without complication) Start:17-Oct-2016 Instruction Type:Patient Education Patient Instructions Indication:Diabetes mellitus type II, controlled, with no complications (Renamed from Controlled type 2 diabetes mellitus without complication) Start:17-Oct-2016 Instruction Type:Provider Instructions for Treatment How to access health informa tion online Indication:Diabetes mellitus type II, controlled, with no complications (Renamed from Controlled type 2 diabetes mellitus without complication) Start:11-Jul-2016 Instruction Type:Patient Education How to access health informa tion online - Detail Indication:Diabetes mellitus type II, controlled, with no complications (Renamed from Controlled type 2 diabetes mellitus without complication) Start:11-Jul-2016 Instruction Type:Patient Education Patient Instructions Indication:Diabetes mellitus type II, controlled, with no complications (Renamed from Controlled type 2 diabetes mellitus without complication) Start:11-Jul-2016 Instruction Type:Provider Instructions for Treatment How to access health informa tion online Indication:Flu-like symptoms Start:10-Apr-2016 Instruction Type:Patient Education How to access health informa tion online - Detail Indication:Flu-like symptoms Start:10-Apr-2016 Instruction Type:Patient Education Patient Instructions Indication:Flu-like symptoms Start:10-Apr-2016 Instruction Type:Provider Instructions for Treatment How to access health informa tion online Indication:Diabetes mellitus type II, controlled, with no complications (Renamed from Controlled type 2 diabetes mellitus without complication) Start:21-Mar-2016 Instruction Type:Patient Education How to access health informa tion online - Detail Indication:Diabetes mellitus type II, controlled, with no complications (Renamed from Controlled type 2 diabetes mellitus without complication) Start:21-Mar-2016 Instruction Type:Patient Education Patient Instructions Indication:Diabetes mellitus type II, controlled, with no complications (Renamed from Controlled type 2 diabetes mellitus without complication) Start:21-Mar-2016 Instruction Type:Provider Instructions for Treatment How to access health informa tion online Indication:Diabetes mellitus type II, controlled, with no complications (Renamed from Controlled type 2 diabetes mellitus without complication) Start:14-Dec-2015 Instruction Type:Patient Education How to access health informa tion online - Detail Indication:Diabetes mellitus type II, controlled, with no complications (Renamed from Controlled type 2 diabetes mellitus without complication) Start:14-Dec-2015 Instruction Type:Patient Education Patient Instructions Indication:Diabetes mellitus type II, controlled, with no complications (Renamed from Controlled type 2 diabetes mellitus without complication) Start:14-Dec-2015 Instruction Type:Provider Instructions for Treatment How to access health informa tion online Indication:Diabetes mellitus type 2, uncontrolled (Renamed from Uncontrolled type 2 diabetes mellitus) Start:28-Sep-2015 Instruction Type:Patient Education How to access health informa tion online - Detail Indication:Diabetes mellitus type 2, uncontrolled (Renamed from Uncontrolled type 2 diabetes mellitus) Start:28-Sep-2015 Instruction Type:Patient Education Patient Instructions Indication:Diabetes mellitus type 2, uncontrolled (Renamed from Uncontrolled type 2 diabetes mellitus) Start:28-Sep-2015 Instruction Type:Provider Instructions for Treatment Patient Instructions Indication:Diabetes mellitus type II, controlled, with no complications (Renamed from Controlled type 2 diabetes mellitus without complication) Start:14-Sep-2015 Instruction Type:Provider Instructions for Treatment Name Dates Details How to access health informa tion online Indication:Diabetes mellitus type II, controlled, with no complications (Renamed from Controlled type 2 diabetes mellitus without complication) Start:29-Oct-2018 Instruction Type:Patient Education How to access health informa tion online - Detail Indication:Diabetes mellitus type II, controlled, with no complications (Renamed from Controlled type 2 diabetes mellitus without complication) Start:29-Oct-2018 Instruction Type:Patient Education Patient Instructions Indication:Diabetes mellitus type II, controlled, with no complications (Renamed from Controlled type 2 diabetes mellitus without complication) Start:29-Oct-2018 Instruction Type:Provider Instructions for Treatment How to access health informa tion online Indication:Diabetes mellitus type II, controlled, with no complications (Renamed from Controlled type 2 diabetes mellitus without complication) Start:23-Jul-2018 Instruction Type:Patient Education How to access health informa tion online - Detail Indication:Diabetes mellitus type II, controlled, with no complications (Renamed from Controlled type 2 diabetes mellitus without complication) Start:23-Jul-2018 Instruction Type:Patient Education Patient Instructions Indication:Diabetes mellitus type II, controlled, with no complications (Renamed from Controlled type 2 diabetes mellitus without complication) Start:23-Jul-2018 Instruction Type:Provider Instructions for Treatment How to access health informa tion online Indication:Nutritional counseling Start:19-Mar-2018 Instruction Type:Patient Education How to access health informa tion online - Detail Indication:Nutritional counseling Start:19-Mar-2018 Instruction Type:Patient Education Patient Instructions Indication:Nutritional counseling Start:19-Mar-2018 Instruction Type:Provider Instructions for Treatment How to access health informa tion online Indication:BMI 30.0-30.9,adult Start:13-Nov-2017 Instruction Type:Patient Education How to access health informa tion online - Detail Indication:BMI 30.0-30.9,adult Start:13-Nov-2017 Instruction Type:Patient Education Patient Instructions Indication:BMI 30.0-30.9,adult Start:13-Nov-2017 Instruction Type:Provider Instructions for Treatment How to access health informa tion online Indication:Diabetes mellitus type II, controlled, with no complications (Renamed from Controlled type 2 diabetes mellitus without complication) Start:07-Aug-2017 Instruction Type:Patient Education How to access health informa tion online - Detail Indication:Diabetes mellitus type II, controlled, with no complications (Renamed from Controlled type 2 diabetes mellitus without complication) Start:07-Aug-2017 Instruction Type:Patient Education Patient Instructions Indication:Diabetes mellitus type II, controlled, with no complications (Renamed from Controlled type 2 diabetes mellitus without complication) Start:07-Aug-2017 Instruction Type:Provider Instructions for Treatment How to access health informa tion online Indication:Diabetes mellitus type II, controlled, with no complications (Renamed from Controlled type 2 diabetes mellitus without complication) Start:01-May-2017 Instruction Type:Patient Education How to access health informa tion online - Detail Indication:Diabetes mellitus type II, controlled, with no complications (Renamed from Controlled type 2 diabetes mellitus without complication) Start:01-May-2017 Instruction Type:Patient Education Patient Instructions Indication:Diabetes mellitus type II, controlled, with no complications (Renamed from Controlled type 2 diabetes mellitus without complication) Start:01-May-2017 Instruction Type:Provider Instructions for Treatment How to access health informa tion online Indication:BMI 32.0-32.9,adult Start:23-Jan-2017 Instruction Type:Patient Education How to access health informa tion online - Detail Indication:BMI 32.0-32.9,adult Start:23-Jan-2017 Instruction Type:Patient Education Patient Instructions Indication:BMI 32.0-32.9,adult Start:23-Jan-2017 Instruction Type:Provider Instructions for Treatment How to access health informa tion online Indication:Diabetes mellitus type II, controlled, with no complications (Renamed from Controlled type 2 diabetes mellitus without complication) Start:17-Oct-2016 Instruction Type:Patient Education How to access health informa tion online - Detail Indication:Diabetes mellitus type II, controlled, with no complications (Renamed from Controlled type 2 diabetes mellitus without complication) Start:17-Oct-2016 Instruction Type:Patient Education Patient Instructions Indication:Diabetes mellitus type II, controlled, with no complications (Renamed from Controlled type 2 diabetes mellitus without complication) Start:17-Oct-2016 Instruction Type:Provider Instructions for Treatment How to access health informa tion online Indication:Diabetes mellitus type II, controlled, with no complications (Renamed from Controlled type 2 diabetes mellitus without complication) Start:11-Jul-2016 Instruction Type:Patient Education How to access health informa tion online - Detail Indication:Diabetes mellitus type II, controlled, with no complications (Renamed from Controlled type 2 diabetes mellitus without complication) Start:11-Jul-2016 Instruction Type:Patient Education Patient Instructions Indication:Diabetes mellitus type II, controlled, with no complications (Renamed from Controlled type 2 diabetes mellitus without complication) Start:11-Jul-2016 Instruction Type:Provider Instructions for Treatment How to access health informa tion online Indication:Flu-like symptoms Start:10-Apr-2016 Instruction Type:Patient Education How to access health informa tion online - Detail Indication:Flu-like symptoms Start:10-Apr-2016 Instruction Type:Patient Education Patient Instructions Indication:Flu-like symptoms Start:10-Apr-2016 Instruction Type:Provider Instructions for Treatment How to access health informa tion online Indication:Diabetes mellitus type II, controlled, with no complications (Renamed from Controlled type 2 diabetes mellitus without complication) Start:21-Mar-2016 Instruction Type:Patient Education How to access health informa tion online - Detail Indication:Diabetes mellitus type II, controlled, with no complications (Renamed from Controlled type 2 diabetes mellitus without complication) Start:21-Mar-2016 Instruction Type:Patient Education Patient Instructions Indication:Diabetes mellitus type II, controlled, with no complications (Renamed from Controlled type 2 diabetes mellitus without complication) Start:21-Mar-2016 Instruction Type:Provider Instructions for Treatment How to access health informa tion online Indication:Diabetes mellitus type II, controlled, with no complications (Renamed from Controlled type 2 diabetes mellitus without complication) Start:14-Dec-2015 Instruction Type:Patient Education How to access health informa tion online - Detail Indication:Diabetes mellitus type II, controlled, with no complications (Renamed from Controlled type 2 diabetes mellitus without complication) Start:14-Dec-2015 Instruction Type:Patient Education Patient Instructions Indication:Diabetes mellitus type II, controlled, with no complications (Renamed from Controlled type 2 diabetes mellitus without complication) Start:14-Dec-2015 Instruction Type:Provider Instructions for Treatment How to access health informa tion online Indication:Diabetes mellitus type 2, uncontrolled (Renamed from Uncontrolled type 2 diabetes mellitus) Start:28-Sep-2015 Instruction Type:Patient Education How to access health informa tion online - Detail Indication:Diabetes mellitus type 2, uncontrolled (Renamed from Uncontrolled type 2 diabetes mellitus) Start:28-Sep-2015 Instruction Type:Patient Education Patient Instructions Indication:Diabetes mellitus type 2, uncontrolled (Renamed from Uncontrolled type 2 diabetes mellitus) Start:28-Sep-2015 Instruction Type:Provider Instructions for Treatment Patient Instructions Indication:Diabetes mellitus type II, controlled, with no complications (Renamed from Controlled type 2 diabetes mellitus without complication) Start:14-Sep-2015 Instruction Type:Provider Instructions for Treatment Name Dates Details How to access health informa tion online Indication:Diabetes mellitus type II, controlled, with no complications (Renamed from Controlled type 2 diabetes mellitus without complication) Start:29-Oct-2018 Instruction Type:Patient Education How to access health informa tion online - Detail Indication:Diabetes mellitus type II, controlled, with no complications (Renamed from Controlled type 2 diabetes mellitus without complication) Start:29-Oct-2018 Instruction Type:Patient Education Patient Instructions Indication:Diabetes mellitus type II, controlled, with no complications (Renamed from Controlled type 2 diabetes mellitus without complication) Start:29-Oct-2018 Instruction Type:Provider Instructions for Treatment How to access health informa tion online Indication:Diabetes mellitus type II, controlled, with no complications (Renamed from Controlled type 2 diabetes mellitus without complication) Start:23-Jul-2018 Instruction Type:Patient Education How to access health informa tion online - Detail Indication:Diabetes mellitus type II, controlled, with no complications (Renamed from Controlled type 2 diabetes mellitus without complication) Start:23-Jul-2018 Instruction Type:Patient Education Patient Instructions Indication:Diabetes mellitus type II, controlled, with no complications (Renamed from Controlled type 2 diabetes mellitus without complication) Start:23-Jul-2018 Instruction Type:Provider Instructions for Treatment How to access health informa tion online Indication:Nutritional counseling Start:19-Mar-2018 Instruction Type:Patient Education How to access health informa tion online - Detail Indication:Nutritional counseling Start:19-Mar-2018 Instruction Type:Patient Education Patient Instructions Indication:Nutritional counseling Start:19-Mar-2018 Instruction Type:Provider Instructions for Treatment How to access health informa tion online Indication:BMI 30.0-30.9,adult Start:13-Nov-2017 Instruction Type:Patient Education How to access health informa tion online - Detail Indication:BMI 30.0-30.9,adult Start:13-Nov-2017 Instruction Type:Patient Education Patient Instructions Indication:BMI 30.0-30.9,adult Start:13-Nov-2017 Instruction Type:Provider Instructions for Treatment How to access health informa tion online Indication:Diabetes mellitus type II, controlled, with no complications (Renamed from Controlled type 2 diabetes mellitus without complication) Start:07-Aug-2017 Instruction Type:Patient Education How to access health informa tion online - Detail Indication:Diabetes mellitus type II, controlled, with no complications (Renamed from Controlled type 2 diabetes mellitus without complication) Start:07-Aug-2017 Instruction Type:Patient Education Patient Instructions Indication:Diabetes mellitus type II, controlled, with no complications (Renamed from Controlled type 2 diabetes mellitus without complication) Start:07-Aug-2017 Instruction Type:Provider Instructions for Treatment How to access health informa tion online Indication:Diabetes mellitus type II, controlled, with no complications (Renamed from Controlled type 2 diabetes mellitus without complication) Start:01-May-2017 Instruction Type:Patient Education How to access health informa tion online - Detail Indication:Diabetes mellitus type II, controlled, with no complications (Renamed from Controlled type 2 diabetes mellitus without complication) Start:01-May-2017 Instruction Type:Patient Education Patient Instructions Indication:Diabetes mellitus type II, controlled, with no complications (Renamed from Controlled type 2 diabetes mellitus without complication) Start:01-May-2017 Instruction Type:Provider Instructions for Treatment How to access health informa tion online Indication:BMI 32.0-32.9,adult Start:23-Jan-2017 Instruction Type:Patient Education How to access health informa tion online - Detail Indication:BMI 32.0-32.9,adult Start:23-Jan-2017 Instruction Type:Patient Education Patient Instructions Indication:BMI 32.0-32.9,adult Start:23-Jan-2017 Instruction Type:Provider Instructions for Treatment How to access health informa tion online Indication:Diabetes mellitus type II, controlled, with no complications (Renamed from Controlled type 2 diabetes mellitus without complication) Start:17-Oct-2016 Instruction Type:Patient Education How to access health informa tion online - Detail Indication:Diabetes mellitus type II, controlled, with no complications (Renamed from Controlled type 2 diabetes mellitus without complication) Start:17-Oct-2016 Instruction Type:Patient Education Patient Instructions Indication:Diabetes mellitus type II, controlled, with no complications (Renamed from Controlled type 2 diabetes mellitus without complication) Start:17-Oct-2016 Instruction Type:Provider Instructions for Treatment How to access health informa tion online Indication:Diabetes mellitus type II, controlled, with no complications (Renamed from Controlled type 2 diabetes mellitus without complication) Start:11-Jul-2016 Instruction Type:Patient Education How to access health informa tion online - Detail Indication:Diabetes mellitus type II, controlled, with no complications (Renamed from Controlled type 2 diabetes mellitus without complication) Start:11-Jul-2016 Instruction Type:Patient Education Patient Instructions Indication:Diabetes mellitus type II, controlled, with no complications (Renamed from Controlled type 2 diabetes mellitus without complication) Start:11-Jul-2016 Instruction Type:Provider Instructions for Treatment How to access health informa tion online Indication:Flu-like symptoms Start:10-Apr-2016 Instruction Type:Patient Education How to access health informa tion online - Detail Indication:Flu-like symptoms Start:10-Apr-2016 Instruction Type:Patient Education Patient Instructions Indication:Flu-like symptoms Start:10-Apr-2016 Instruction Type:Provider Instructions for Treatment How to access health informa tion online Indication:Diabetes mellitus type II, controlled, with no complications (Renamed from Controlled type 2 diabetes mellitus without complication) Start:21-Mar-2016 Instruction Type:Patient Education How to access health informa tion online - Detail Indication:Diabetes mellitus type II, controlled, with no complications (Renamed from Controlled type 2 diabetes mellitus without complication) Start:21-Mar-2016 Instruction Type:Patient Education Patient Instructions Indication:Diabetes mellitus type II, controlled, with no complications (Renamed from Controlled type 2 diabetes mellitus without complication) Start:21-Mar-2016 Instruction Type:Provider Instructions for Treatment How to access health informa tion online Indication:Diabetes mellitus type II, controlled, with no complications (Renamed from Controlled type 2 diabetes mellitus without complication) Start:14-Dec-2015 Instruction Type:Patient Education How to access health informa tion online - Detail Indication:Diabetes mellitus type II, controlled, with no complications (Renamed from Controlled type 2 diabetes mellitus without complication) Start:14-Dec-2015 Instruction Type:Patient Education Patient Instructions Indication:Diabetes mellitus type II, controlled, with no complications (Renamed from Controlled type 2 diabetes mellitus without complication) Start:14-Dec-2015 Instruction Type:Provider Instructions for Treatment How to access health informa tion online Indication:Diabetes mellitus type 2, uncontrolled (Renamed from Uncontrolled type 2 diabetes mellitus) Start:28-Sep-2015 Instruction Type:Patient Education How to access health informa tion online - Detail Indication:Diabetes mellitus type 2, uncontrolled (Renamed from Uncontrolled type 2 diabetes mellitus) Start:28-Sep-2015 Instruction Type:Patient Education Patient Instructions Indication:Diabetes mellitus type 2, uncontrolled (Renamed from Uncontrolled type 2 diabetes mellitus) Start:28-Sep-2015 Instruction Type:Provider Instructions for Treatment Patient Instructions Indication:Diabetes mellitus type II, controlled, with no complications (Renamed from Controlled type 2 diabetes mellitus without complication) Start:14-Sep-2015 Instruction Type:Provider Instructions for Treatment Name Dates Details How to access health informa tion online Indication:Diabetes mellitus type II, controlled, with no complications (Renamed from Controlled type 2 diabetes mellitus without complication) Start:29-Oct-2018 Instruction Type:Patient Education How to access health informa tion online - Detail Indication:Diabetes mellitus type II, controlled, with no complications (Renamed from Controlled type 2 diabetes mellitus without complication) Start:29-Oct-2018 Instruction Type:Patient Education Patient Instructions Indication:Diabetes mellitus type II, controlled, with no complications (Renamed from Controlled type 2 diabetes mellitus without complication) Start:29-Oct-2018 Instruction Type:Provider Instructions for Treatment How to access health informa tion online Indication:Diabetes mellitus type II, controlled, with no complications (Renamed from Controlled type 2 diabetes mellitus without complication) Start:23-Jul-2018 Instruction Type:Patient Education How to access health informa tion online - Detail Indication:Diabetes mellitus type II, controlled, with no complications (Renamed from Controlled type 2 diabetes mellitus without complication) Start:23-Jul-2018 Instruction Type:Patient Education Patient Instructions Indication:Diabetes mellitus type II, controlled, with no complications (Renamed from Controlled type 2 diabetes mellitus without complication) Start:23-Jul-2018 Instruction Type:Provider Instructions for Treatment How to access health informa tion online Indication:Nutritional counseling Start:19-Mar-2018 Instruction Type:Patient Education How to access health informa tion online - Detail Indication:Nutritional counseling Start:19-Mar-2018 Instruction Type:Patient Education Patient Instructions Indication:Nutritional counseling Start:19-Mar-2018 Instruction Type:Provider Instructions for Treatment How to access health informa tion online Indication:BMI 30.0-30.9,adult Start:13-Nov-2017 Instruction Type:Patient Education How to access health informa tion online - Detail Indication:BMI 30.0-30.9,adult Start:13-Nov-2017 Instruction Type:Patient Education Patient Instructions Indication:BMI 30.0-30.9,adult Start:13-Nov-2017 Instruction Type:Provider Instructions for Treatment How to access health informa tion online Indication:Diabetes mellitus type II, controlled, with no complications (Renamed from Controlled type 2 diabetes mellitus without complication) Start:07-Aug-2017 Instruction Type:Patient Education How to access health informa tion online - Detail Indication:Diabetes mellitus type II, controlled, with no complications (Renamed from Controlled type 2 diabetes mellitus without complication) Start:07-Aug-2017 Instruction Type:Patient Education Patient Instructions Indication:Diabetes mellitus type II, controlled, with no complications (Renamed from Controlled type 2 diabetes mellitus without complication) Start:07-Aug-2017 Instruction Type:Provider Instructions for Treatment How to access health informa tion online Indication:Diabetes mellitus type II, controlled, with no complications (Renamed from Controlled type 2 diabetes mellitus without complication) Start:01-May-2017 Instruction Type:Patient Education How to access health informa tion online - Detail Indication:Diabetes mellitus type II, controlled, with no complications (Renamed from Controlled type 2 diabetes mellitus without complication) Start:01-May-2017 Instruction Type:Patient Education Patient Instructions Indication:Diabetes mellitus type II, controlled, with no complications (Renamed from Controlled type 2 diabetes mellitus without complication) Start:01-May-2017 Instruction Type:Provider Instructions for Treatment How to access health informa tion online Indication:BMI 32.0-32.9,adult Start:23-Jan-2017 Instruction Type:Patient Education How to access health informa tion online - Detail Indication:BMI 32.0-32.9,adult Start:23-Jan-2017 Instruction Type:Patient Education Patient Instructions Indication:BMI 32.0-32.9,adult Start:23-Jan-2017 Instruction Type:Provider Instructions for Treatment How to access health informa tion online Indication:Diabetes mellitus type II, controlled, with no complications (Renamed from Controlled type 2 diabetes mellitus without complication) Start:17-Oct-2016 Instruction Type:Patient Education How to access health informa tion online - Detail Indication:Diabetes mellitus type II, controlled, with no complications (Renamed from Controlled type 2 diabetes mellitus without complication) Start:17-Oct-2016 Instruction Type:Patient Education Patient Instructions Indication:Diabetes mellitus type II, controlled, with no complications (Renamed from Controlled type 2 diabetes mellitus without complication) Start:17-Oct-2016 Instruction Type:Provider Instructions for Treatment How to access health informa tion online Indication:Diabetes mellitus type II, controlled, with no complications (Renamed from Controlled type 2 diabetes mellitus without complication) Start:11-Jul-2016 Instruction Type:Patient Education How to access health informa tion online - Detail Indication:Diabetes mellitus type II, controlled, with no complications (Renamed from Controlled type 2 diabetes mellitus without complication) Start:11-Jul-2016 Instruction Type:Patient Education Patient Instructions Indication:Diabetes mellitus type II, controlled, with no complications (Renamed from Controlled type 2 diabetes mellitus without complication) Start:11-Jul-2016 Instruction Type:Provider Instructions for Treatment How to access health informa tion online Indication:Flu-like symptoms Start:10-Apr-2016 Instruction Type:Patient Education How to access health informa tion online - Detail Indication:Flu-like symptoms Start:10-Apr-2016 Instruction Type:Patient Education Patient Instructions Indication:Flu-like symptoms Start:10-Apr-2016 Instruction Type:Provider Instructions for Treatment How to access health informa tion online Indication:Diabetes mellitus type II, controlled, with no complications (Renamed from Controlled type 2 diabetes mellitus without complication) Start:21-Mar-2016 Instruction Type:Patient Education How to access health informa tion online - Detail Indication:Diabetes mellitus type II, controlled, with no complications (Renamed from Controlled type 2 diabetes mellitus without complication) Start:21-Mar-2016 Instruction Type:Patient Education Patient Instructions Indication:Diabetes mellitus type II, controlled, with no complications (Renamed from Controlled type 2 diabetes mellitus without complication) Start:21-Mar-2016 Instruction Type:Provider Instructions for Treatment How to access health informa tion online Indication:Diabetes mellitus type II, controlled, with no complications (Renamed from Controlled type 2 diabetes mellitus without complication) Start:14-Dec-2015 Instruction Type:Patient Education How to access health informa tion online - Detail Indication:Diabetes mellitus type II, controlled, with no complications (Renamed from Controlled type 2 diabetes mellitus without complication) Start:14-Dec-2015 Instruction Type:Patient Education Patient Instructions Indication:Diabetes mellitus type II, controlled, with no complications (Renamed from Controlled type 2 diabetes mellitus without complication) Start:14-Dec-2015 Instruction Type:Provider Instructions for Treatment How to access health informa tion online Indication:Diabetes mellitus type 2, uncontrolled (Renamed from Uncontrolled type 2 diabetes mellitus) Start:28-Sep-2015 Instruction Type:Patient Education How to access health informa tion online - Detail Indication:Diabetes mellitus type 2, uncontrolled (Renamed from Uncontrolled type 2 diabetes mellitus) Start:28-Sep-2015 Instruction Type:Patient Education Patient Instructions Indication:Diabetes mellitus type 2, uncontrolled (Renamed from Uncontrolled type 2 diabetes mellitus) Start:28-Sep-2015 Instruction Type:Provider Instructions for Treatment Patient Instructions Indication:Diabetes mellitus type II, controlled, with no complications (Renamed from Controlled type 2 diabetes mellitus without complication) Start:14-Sep-2015 Instruction Type:Provider Instructions for Treatment Name Dates Details How to access health informa tion online Indication:Diabetes mellitus type II, controlled, with no complications (Renamed from Controlled type 2 diabetes mellitus without complication) Start:29-Oct-2018 Instruction Type:Patient Education How to access health informa tion online - Detail Indication:Diabetes mellitus type II, controlled, with no complications (Renamed from Controlled type 2 diabetes mellitus without complication) Start:29-Oct-2018 Instruction Type:Patient Education Patient Instructions Indication:Diabetes mellitus type II, controlled, with no complications (Renamed from Controlled type 2 diabetes mellitus without complication) Start:29-Oct-2018 Instruction Type:Provider Instructions for Treatment How to access health informa tion online Indication:Diabetes mellitus type II, controlled, with no complications (Renamed from Controlled type 2 diabetes mellitus without complication) Start:23-Jul-2018 Instruction Type:Patient Education How to access health informa tion online - Detail Indication:Diabetes mellitus type II, controlled, with no complications (Renamed from Controlled type 2 diabetes mellitus without complication) Start:23-Jul-2018 Instruction Type:Patient Education Patient Instructions Indication:Diabetes mellitus type II, controlled, with no complications (Renamed from Controlled type 2 diabetes mellitus without complication) Start:23-Jul-2018 Instruction Type:Provider Instructions for Treatment How to access health informa tion online Indication:Nutritional counseling Start:19-Mar-2018 Instruction Type:Patient Education How to access health informa tion online - Detail Indication:Nutritional counseling Start:19-Mar-2018 Instruction Type:Patient Education Patient Instructions Indication:Nutritional counseling Start:19-Mar-2018 Instruction Type:Provider Instructions for Treatment How to access health informa tion online Indication:BMI 30.0-30.9,adult Start:13-Nov-2017 Instruction Type:Patient Education How to access health informa tion online - Detail Indication:BMI 30.0-30.9,adult Start:13-Nov-2017 Instruction Type:Patient Education Patient Instructions Indication:BMI 30.0-30.9,adult Start:13-Nov-2017 Instruction Type:Provider Instructions for Treatment How to access health informa tion online Indication:Diabetes mellitus type II, controlled, with no complications (Renamed from Controlled type 2 diabetes mellitus without complication) Start:07-Aug-2017 Instruction Type:Patient Education How to access health informa tion online - Detail Indication:Diabetes mellitus type II, controlled, with no complications (Renamed from Controlled type 2 diabetes mellitus without complication) Start:07-Aug-2017 Instruction Type:Patient Education Patient Instructions Indication:Diabetes mellitus type II, controlled, with no complications (Renamed from Controlled type 2 diabetes mellitus without complication) Start:07-Aug-2017 Instruction Type:Provider Instructions for Treatment How to access health informa tion online Indication:Diabetes mellitus type II, controlled, with no complications (Renamed from Controlled type 2 diabetes mellitus without complication) Start:01-May-2017 Instruction Type:Patient Education How to access health informa tion online - Detail Indication:Diabetes mellitus type II, controlled, with no complications (Renamed from Controlled type 2 diabetes mellitus without complication) Start:01-May-2017 Instruction Type:Patient Education Patient Instructions Indication:Diabetes mellitus type II, controlled, with no complications (Renamed from Controlled type 2 diabetes mellitus without complication) Start:01-May-2017 Instruction Type:Provider Instructions for Treatment How to access health informa tion online Indication:BMI 32.0-32.9,adult Start:23-Jan-2017 Instruction Type:Patient Education How to access health informa tion online - Detail Indication:BMI 32.0-32.9,adult Start:23-Jan-2017 Instruction Type:Patient Education Patient Instructions Indication:BMI 32.0-32.9,adult Start:23-Jan-2017 Instruction Type:Provider Instructions for Treatment How to access health informa tion online Indication:Diabetes mellitus type II, controlled, with no complications (Renamed from Controlled type 2 diabetes mellitus without complication) Start:17-Oct-2016 Instruction Type:Patient Education How to access health informa tion online - Detail Indication:Diabetes mellitus type II, controlled, with no complications (Renamed from Controlled type 2 diabetes mellitus without complication) Start:17-Oct-2016 Instruction Type:Patient Education Patient Instructions Indication:Diabetes mellitus type II, controlled, with no complications (Renamed from Controlled type 2 diabetes mellitus without complication) Start:17-Oct-2016 Instruction Type:Provider Instructions for Treatment How to access health informa tion online Indication:Diabetes mellitus type II, controlled, with no complications (Renamed from Controlled type 2 diabetes mellitus without complication) Start:11-Jul-2016 Instruction Type:Patient Education How to access health informa tion online - Detail Indication:Diabetes mellitus type II, controlled, with no complications (Renamed from Controlled type 2 diabetes mellitus without complication) Start:11-Jul-2016 Instruction Type:Patient Education Patient Instructions Indication:Diabetes mellitus type II, controlled, with no complications (Renamed from Controlled type 2 diabetes mellitus without complication) Start:11-Jul-2016 Instruction Type:Provider Instructions for Treatment How to access health informa tion online Indication:Flu-like symptoms Start:10-Apr-2016 Instruction Type:Patient Education How to access health informa tion online - Detail Indication:Flu-like symptoms Start:10-Apr-2016 Instruction Type:Patient Education Patient Instructions Indication:Flu-like symptoms Start:10-Apr-2016 Instruction Type:Provider Instructions for Treatment How to access health informa tion online Indication:Diabetes mellitus type II, controlled, with no complications (Renamed from Controlled type 2 diabetes mellitus without complication) Start:21-Mar-2016 Instruction Type:Patient Education How to access health informa tion online - Detail Indication:Diabetes mellitus type II, controlled, with no complications (Renamed from Controlled type 2 diabetes mellitus without complication) Start:21-Mar-2016 Instruction Type:Patient Education Patient Instructions Indication:Diabetes mellitus type II, controlled, with no complications (Renamed from Controlled type 2 diabetes mellitus without complication) Start:21-Mar-2016 Instruction Type:Provider Instructions for Treatment How to access health informa tion online Indication:Diabetes mellitus type II, controlled, with no complications (Renamed from Controlled type 2 diabetes mellitus without complication) Start:14-Dec-2015 Instruction Type:Patient Education How to access health informa tion online - Detail Indication:Diabetes mellitus type II, controlled, with no complications (Renamed from Controlled type 2 diabetes mellitus without complication) Start:14-Dec-2015 Instruction Type:Patient Education Patient Instructions Indication:Diabetes mellitus type II, controlled, with no complications (Renamed from Controlled type 2 diabetes mellitus without complication) Start:14-Dec-2015 Instruction Type:Provider Instructions for Treatment How to access health informa tion online Indication:Diabetes mellitus type 2, uncontrolled (Renamed from Uncontrolled type 2 diabetes mellitus) Start:28-Sep-2015 Instruction Type:Patient Education How to access health informa tion online - Detail Indication:Diabetes mellitus type 2, uncontrolled (Renamed from Uncontrolled type 2 diabetes mellitus) Start:28-Sep-2015 Instruction Type:Patient Education Patient Instructions Indication:Diabetes mellitus type 2, uncontrolled (Renamed from Uncontrolled type 2 diabetes mellitus) Start:28-Sep-2015 Instruction Type:Provider Instructions for Treatment Patient Instructions Indication:Diabetes mellitus type II, controlled, with no complications (Renamed from Controlled type 2 diabetes mellitus without complication) Start:14-Sep-2015 Instruction Type:Provider Instructions for Treatment Name Dates Details How to access health informa tion online Indication:Diabetes mellitus type 2, uncontrolled (Renamed from Uncontrolled type 2 diabetes mellitus) Start:22-Jul-2019 Instruction Type:Patient Education How to access health informa tion online - Detail Indication:Diabetes mellitus type 2, uncontrolled (Renamed from Uncontrolled type 2 diabetes mellitus) Start:22-Jul-2019 Instruction Type:Patient Education Patient Instructions Indication:Diabetes mellitus type 2, uncontrolled (Renamed from Uncontrolled type 2 diabetes mellitus) Start:22-Jul-2019 Instruction Type:Provider Instructions for Treatment How to access health informa tion online Indication:Diabetes mellitus type II, controlled, with no complications (Renamed from Controlled type 2 diabetes mellitus without complication) Start:04-Feb-2019 Instruction Type:Patient Education How to access health informa tion online - Detail Indication:Diabetes mellitus type II, controlled, with no complications (Renamed from Controlled type 2 diabetes mellitus without complication) Start:04-Feb-2019 Instruction Type:Patient Education Patient Instructions Indication:Diabetes mellitus type II, controlled, with no complications (Renamed from Controlled type 2 diabetes mellitus without complication) Start:04-Feb-2019 Instruction Type:Provider Instructions for Treatment How to access health informa tion online Indication:Diabetes mellitus type II, controlled, with no complications (Renamed from Controlled type 2 diabetes mellitus without complication) Start:29-Oct-2018 Instruction Type:Patient Education How to access health informa tion online - Detail Indication:Diabetes mellitus type II, controlled, with no complications (Renamed from Controlled type 2 diabetes mellitus without complication) Start:29-Oct-2018 Instruction Type:Patient Education Patient Instructions Indication:Diabetes mellitus type II, controlled, with no complications (Renamed from Controlled type 2 diabetes mellitus without complication) Start:29-Oct-2018 Instruction Type:Provider Instructions for Treatment How to access health informa tion online Indication:Diabetes mellitus type II, controlled, with no complications (Renamed from Controlled type 2 diabetes mellitus without complication) Start:23-Jul-2018 Instruction Type:Patient Education How to access health informa tion online - Detail Indication:Diabetes mellitus type II, controlled, with no complications (Renamed from Controlled type 2 diabetes mellitus without complication) Start:23-Jul-2018 Instruction Type:Patient Education Patient Instructions Indication:Diabetes mellitus type II, controlled, with no complications (Renamed from Controlled type 2 diabetes mellitus without complication) Start:23-Jul-2018 Instruction Type:Provider Instructions for Treatment How to access health informa tion online Indication:Nutritional counseling Start:19-Mar-2018 Instruction Type:Patient Education How to access health informa tion online - Detail Indication:Nutritional counseling Start:19-Mar-2018 Instruction Type:Patient Education Patient Instructions Indication:Nutritional counseling Start:19-Mar-2018 Instruction Type:Provider Instructions for Treatment How to access health informa tion online Indication:BMI 30.0-30.9,adult Start:13-Nov-2017 Instruction Type:Patient Education How to access health informa tion online - Detail Indication:BMI 30.0-30.9,adult Start:13-Nov-2017 Instruction Type:Patient Education Patient Instructions Indication:BMI 30.0-30.9,adult Start:13-Nov-2017 Instruction Type:Provider Instructions for Treatment How to access health informa tion online Indication:Diabetes mellitus type II, controlled, with no complications (Renamed from Controlled type 2 diabetes mellitus without complication) Start:07-Aug-2017 Instruction Type:Patient Education How to access health informa tion online - Detail Indication:Diabetes mellitus type II, controlled, with no complications (Renamed from Controlled type 2 diabetes mellitus without complication) Start:07-Aug-2017 Instruction Type:Patient Education Patient Instructions Indication:Diabetes mellitus type II, controlled, with no complications (Renamed from Controlled type 2 diabetes mellitus without complication) Start:07-Aug-2017 Instruction Type:Provider Instructions for Treatment How to access health informa tion online Indication:Diabetes mellitus type II, controlled, with no complications (Renamed from Controlled type 2 diabetes mellitus without complication) Start:01-May-2017 Instruction Type:Patient Education How to access health informa tion online - Detail Indication:Diabetes mellitus type II, controlled, with no complications (Renamed from Controlled type 2 diabetes mellitus without complication) Start:01-May-2017 Instruction Type:Patient Education Patient Instructions Indication:Diabetes mellitus type II, controlled, with no complications (Renamed from Controlled type 2 diabetes mellitus without complication) Start:01-May-2017 Instruction Type:Provider Instructions for Treatment How to access health informa tion online Indication:BMI 32.0-32.9,adult Start:23-Jan-2017 Instruction Type:Patient Education How to access health informa tion online - Detail Indication:BMI 32.0-32.9,adult Start:23-Jan-2017 Instruction Type:Patient Education Patient Instructions Indication:BMI 32.0-32.9,adult Start:23-Jan-2017 Instruction Type:Provider Instructions for Treatment How to access health informa tion online Indication:Diabetes mellitus type II, controlled, with no complications (Renamed from Controlled type 2 diabetes mellitus without complication) Start:17-Oct-2016 Instruction Type:Patient Education How to access health informa tion online - Detail Indication:Diabetes mellitus type II, controlled, with no complications (Renamed from Controlled type 2 diabetes mellitus without complication) Start:17-Oct-2016 Instruction Type:Patient Education Patient Instructions Indication:Diabetes mellitus type II, controlled, with no complications (Renamed from Controlled type 2 diabetes mellitus without complication) Start:17-Oct-2016 Instruction Type:Provider Instructions for Treatment How to access health informa tion online Indication:Diabetes mellitus type II, controlled, with no complications (Renamed from Controlled type 2 diabetes mellitus without complication) Start:11-Jul-2016 Instruction Type:Patient Education How to access health informa tion online - Detail Indication:Diabetes mellitus type II, controlled, with no complications (Renamed from Controlled type 2 diabetes mellitus without complication) Start:11-Jul-2016 Instruction Type:Patient Education Patient Instructions Indication:Diabetes mellitus type II, controlled, with no complications (Renamed from Controlled type 2 diabetes mellitus without complication) Start:11-Jul-2016 Instruction Type:Provider Instructions for Treatment How to access health informa tion online Indication:Flu-like symptoms Start:10-Apr-2016 Instruction Type:Patient Education How to access health informa tion online - Detail Indication:Flu-like symptoms Start:10-Apr-2016 Instruction Type:Patient Education Patient Instructions Indication:Flu-like symptoms Start:10-Apr-2016 Instruction Type:Provider Instructions for Treatment How to access health informa tion online Indication:Diabetes mellitus type II, controlled, with no complications (Renamed from Controlled type 2 diabetes mellitus without complication) Start:21-Mar-2016 Instruction Type:Patient Education How to access health informa tion online - Detail Indication:Diabetes mellitus type II, controlled, with no complications (Renamed from Controlled type 2 diabetes mellitus without complication) Start:21-Mar-2016 Instruction Type:Patient Education Patient Instructions Indication:Diabetes mellitus type II, controlled, with no complications (Renamed from Controlled type 2 diabetes mellitus without complication) Start:21-Mar-2016 Instruction Type:Provider Instructions for Treatment How to access health informa tion online Indication:Diabetes mellitus type II, controlled, with no complications (Renamed from Controlled type 2 diabetes mellitus without complication) Start:14-Dec-2015 Instruction Type:Patient Education How to access health informa tion online - Detail Indication:Diabetes mellitus type II, controlled, with no complications (Renamed from Controlled type 2 diabetes mellitus without complication) Start:14-Dec-2015 Instruction Type:Patient Education Patient Instructions Indication:Diabetes mellitus type II, controlled, with no complications (Renamed from Controlled type 2 diabetes mellitus without complication) Start:14-Dec-2015 Instruction Type:Provider Instructions for Treatment How to access health informa tion online Indication:Diabetes mellitus type 2, uncontrolled (Renamed from Uncontrolled type 2 diabetes mellitus) Start:28-Sep-2015 Instruction Type:Patient Education How to access health informa tion online - Detail Indication:Diabetes mellitus type 2, uncontrolled (Renamed from Uncontrolled type 2 diabetes mellitus) Start:28-Sep-2015 Instruction Type:Patient Education Patient Instructions Indication:Diabetes mellitus type 2, uncontrolled (Renamed from Uncontrolled type 2 diabetes mellitus) Start:28-Sep-2015 Instruction Type:Provider Instructions for Treatment Patient Instructions Indication:Diabetes mellitus type II, controlled, with no complications (Renamed from Controlled type 2 diabetes mellitus without complication) Start:14-Sep-2015 Instruction Type:Provider Instructions for Treatment Name Dates Details How to access health informa tion online Indication:Diabetes mellitus type 2, uncontrolled (Renamed from Uncontrolled type 2 diabetes mellitus) Start:22-Jul-2019 Instruction Type:Patient Education How to access health informa tion online - Detail Indication:Diabetes mellitus type 2, uncontrolled (Renamed from Uncontrolled type 2 diabetes mellitus) Start:22-Jul-2019 Instruction Type:Patient Education Patient Instructions Indication:Diabetes mellitus type 2, uncontrolled (Renamed from Uncontrolled type 2 diabetes mellitus) Start:22-Jul-2019 Instruction Type:Provider Instructions for Treatment How to access health informa tion online Indication:Diabetes mellitus type II, controlled, with no complications (Renamed from Controlled type 2 diabetes mellitus without complication) Start:04-Feb-2019 Instruction Type:Patient Education How to access health informa tion online - Detail Indication:Diabetes mellitus type II, controlled, with no complications (Renamed from Controlled type 2 diabetes mellitus without complication) Start:04-Feb-2019 Instruction Type:Patient Education Patient Instructions Indication:Diabetes mellitus type II, controlled, with no complications (Renamed from Controlled type 2 diabetes mellitus without complication) Start:04-Feb-2019 Instruction Type:Provider Instructions for Treatment How to access health informa tion online Indication:Diabetes mellitus type II, controlled, with no complications (Renamed from Controlled type 2 diabetes mellitus without complication) Start:29-Oct-2018 Instruction Type:Patient Education How to access health informa tion online - Detail Indication:Diabetes mellitus type II, controlled, with no complications (Renamed from Controlled type 2 diabetes mellitus without complication) Start:29-Oct-2018 Instruction Type:Patient Education Patient Instructions Indication:Diabetes mellitus type II, controlled, with no complications (Renamed from Controlled type 2 diabetes mellitus without complication) Start:29-Oct-2018 Instruction Type:Provider Instructions for Treatment How to access health informa tion online Indication:Diabetes mellitus type II, controlled, with no complications (Renamed from Controlled type 2 diabetes mellitus without complication) Start:23-Jul-2018 Instruction Type:Patient Education How to access health informa tion online - Detail Indication:Diabetes mellitus type II, controlled, with no complications (Renamed from Controlled type 2 diabetes mellitus without complication) Start:23-Jul-2018 Instruction Type:Patient Education Patient Instructions Indication:Diabetes mellitus type II, controlled, with no complications (Renamed from Controlled type 2 diabetes mellitus without complication) Start:23-Jul-2018 Instruction Type:Provider Instructions for Treatment How to access health informa tion online Indication:Nutritional counseling Start:19-Mar-2018 Instruction Type:Patient Education How to access health informa tion online - Detail Indication:Nutritional counseling Start:19-Mar-2018 Instruction Type:Patient Education Patient Instructions Indication:Nutritional counseling Start:19-Mar-2018 Instruction Type:Provider Instructions for Treatment How to access health informa tion online Indication:BMI 30.0-30.9,adult Start:13-Nov-2017 Instruction Type:Patient Education How to access health informa tion online - Detail Indication:BMI 30.0-30.9,adult Start:13-Nov-2017 Instruction Type:Patient Education Patient Instructions Indication:BMI 30.0-30.9,adult Start:13-Nov-2017 Instruction Type:Provider Instructions for Treatment How to access health informa tion online Indication:Diabetes mellitus type II, controlled, with no complications (Renamed from Controlled type 2 diabetes mellitus without complication) Start:07-Aug-2017 Instruction Type:Patient Education How to access health informa tion online - Detail Indication:Diabetes mellitus type II, controlled, with no complications (Renamed from Controlled type 2 diabetes mellitus without complication) Start:07-Aug-2017 Instruction Type:Patient Education Patient Instructions Indication:Diabetes mellitus type II, controlled, with no complications (Renamed from Controlled type 2 diabetes mellitus without complication) Start:07-Aug-2017 Instruction Type:Provider Instructions for Treatment How to access health informa tion online Indication:Diabetes mellitus type II, controlled, with no complications (Renamed from Controlled type 2 diabetes mellitus without complication) Start:01-May-2017 Instruction Type:Patient Education How to access health informa tion online - Detail Indication:Diabetes mellitus type II, controlled, with no complications (Renamed from Controlled type 2 diabetes mellitus without complication) Start:01-May-2017 Instruction Type:Patient Education Patient Instructions Indication:Diabetes mellitus type II, controlled, with no complications (Renamed from Controlled type 2 diabetes mellitus without complication) Start:01-May-2017 Instruction Type:Provider Instructions for Treatment How to access health informa tion online Indication:BMI 32.0-32.9,adult Start:23-Jan-2017 Instruction Type:Patient Education How to access health informa tion online - Detail Indication:BMI 32.0-32.9,adult Start:23-Jan-2017 Instruction Type:Patient Education Patient Instructions Indication:BMI 32.0-32.9,adult Start:23-Jan-2017 Instruction Type:Provider Instructions for Treatment How to access health informa tion online Indication:Diabetes mellitus type II, controlled, with no complications (Renamed from Controlled type 2 diabetes mellitus without complication) Start:17-Oct-2016 Instruction Type:Patient Education How to access health informa tion online - Detail Indication:Diabetes mellitus type II, controlled, with no complications (Renamed from Controlled type 2 diabetes mellitus without complication) Start:17-Oct-2016 Instruction Type:Patient Education Patient Instructions Indication:Diabetes mellitus type II, controlled, with no complications (Renamed from Controlled type 2 diabetes mellitus without complication) Start:17-Oct-2016 Instruction Type:Provider Instructions for Treatment How to access health informa tion online Indication:Diabetes mellitus type II, controlled, with no complications (Renamed from Controlled type 2 diabetes mellitus without complication) Start:11-Jul-2016 Instruction Type:Patient Education How to access health informa tion online - Detail Indication:Diabetes mellitus type II, controlled, with no complications (Renamed from Controlled type 2 diabetes mellitus without complication) Start:11-Jul-2016 Instruction Type:Patient Education Patient Instructions Indication:Diabetes mellitus type II, controlled, with no complications (Renamed from Controlled type 2 diabetes mellitus without complication) Start:11-Jul-2016 Instruction Type:Provider Instructions for Treatment How to access health informa tion online Indication:Flu-like symptoms Start:10-Apr-2016 Instruction Type:Patient Education How to access health informa tion online - Detail Indication:Flu-like symptoms Start:10-Apr-2016 Instruction Type:Patient Education Patient Instructions Indication:Flu-like symptoms Start:10-Apr-2016 Instruction Type:Provider Instructions for Treatment How to access health informa tion online Indication:Diabetes mellitus type II, controlled, with no complications (Renamed from Controlled type 2 diabetes mellitus without complication) Start:21-Mar-2016 Instruction Type:Patient Education How to access health informa tion online - Detail Indication:Diabetes mellitus type II, controlled, with no complications (Renamed from Controlled type 2 diabetes mellitus without complication) Start:21-Mar-2016 Instruction Type:Patient Education Patient Instructions Indication:Diabetes mellitus type II, controlled, with no complications (Renamed from Controlled type 2 diabetes mellitus without complication) Start:21-Mar-2016 Instruction Type:Provider Instructions for Treatment How to access health informa tion online Indication:Diabetes mellitus type II, controlled, with no complications (Renamed from Controlled type 2 diabetes mellitus without complication) Start:14-Dec-2015 Instruction Type:Patient Education How to access health informa tion online - Detail Indication:Diabetes mellitus type II, controlled, with no complications (Renamed from Controlled type 2 diabetes mellitus without complication) Start:14-Dec-2015 Instruction Type:Patient Education Patient Instructions Indication:Diabetes mellitus type II, controlled, with no complications (Renamed from Controlled type 2 diabetes mellitus without complication) Start:14-Dec-2015 Instruction Type:Provider Instructions for Treatment How to access health informa tion online Indication:Diabetes mellitus type 2, uncontrolled (Renamed from Uncontrolled type 2 diabetes mellitus) Start:28-Sep-2015 Instruction Type:Patient Education How to access health informa tion online - Detail Indication:Diabetes mellitus type 2, uncontrolled (Renamed from Uncontrolled type 2 diabetes mellitus) Start:28-Sep-2015 Instruction Type:Patient Education Patient Instructions Indication:Diabetes mellitus type 2, uncontrolled (Renamed from Uncontrolled type 2 diabetes mellitus) Start:28-Sep-2015 Instruction Type:Provider Instructions for Treatment Patient Instructions Indication:Diabetes mellitus type II, controlled, with no complications (Renamed from Controlled type 2 diabetes mellitus without complication) Start:14-Sep-2015 Instruction Type:Provider Instructions for Treatment Name Dates Details How to access health informa tion online Indication:Diabetes mellitus type 2, uncontrolled (Renamed from Uncontrolled type 2 diabetes mellitus) Start:25-Nov-2019 Instruction Type:Patient Education How to access health informa tion online - Detail Indication:Diabetes mellitus type 2, uncontrolled (Renamed from Uncontrolled type 2 diabetes mellitus) Start:25-Nov-2019 Instruction Type:Patient Education Patient Instructions Indication:Diabetes mellitus type 2, uncontrolled (Renamed from Uncontrolled type 2 diabetes mellitus) Start:25-Nov-2019 Instruction Type:Provider Instructions for Treatment How to access health informa tion online Indication:Diabetes mellitus type 2, uncontrolled (Renamed from Uncontrolled type 2 diabetes mellitus) Start:22-Jul-2019 Instruction Type:Patient Education How to access health informa tion online - Detail Indication:Diabetes mellitus type 2, uncontrolled (Renamed from Uncontrolled type 2 diabetes mellitus) Start:22-Jul-2019 Instruction Type:Patient Education Patient Instructions Indication:Diabetes mellitus type 2, uncontrolled (Renamed from Uncontrolled type 2 diabetes mellitus) Start:22-Jul-2019 Instruction Type:Provider Instructions for Treatment How to access health informa tion online Indication:Diabetes mellitus type II, controlled, with no complications (Renamed from Controlled type 2 diabetes mellitus without complication) Start:04-Feb-2019 Instruction Type:Patient Education How to access health informa tion online - Detail Indication:Diabetes mellitus type II, controlled, with no complications (Renamed from Controlled type 2 diabetes mellitus without complication) Start:04-Feb-2019 Instruction Type:Patient Education Patient Instructions Indication:Diabetes mellitus type II, controlled, with no complications (Renamed from Controlled type 2 diabetes mellitus without complication) Start:04-Feb-2019 Instruction Type:Provider Instructions for Treatment How to access health informa tion online Indication:Diabetes mellitus type II, controlled, with no complications (Renamed from Controlled type 2 diabetes mellitus without complication) Start:29-Oct-2018 Instruction Type:Patient Education How to access health informa tion online - Detail Indication:Diabetes mellitus type II, controlled, with no complications (Renamed from Controlled type 2 diabetes mellitus without complication) Start:29-Oct-2018 Instruction Type:Patient Education Patient Instructions Indication:Diabetes mellitus type II, controlled, with no complications (Renamed from Controlled type 2 diabetes mellitus without complication) Start:29-Oct-2018 Instruction Type:Provider Instructions for Treatment How to access health informa tion online Indication:Diabetes mellitus type II, controlled, with no complications (Renamed from Controlled type 2 diabetes mellitus without complication) Start:23-Jul-2018 Instruction Type:Patient Education How to access health informa tion online - Detail Indication:Diabetes mellitus type II, controlled, with no complications (Renamed from Controlled type 2 diabetes mellitus without complication) Start:23-Jul-2018 Instruction Type:Patient Education Patient Instructions Indication:Diabetes mellitus type II, controlled, with no complications (Renamed from Controlled type 2 diabetes mellitus without complication) Start:23-Jul-2018 Instruction Type:Provider Instructions for Treatment How to access health informa tion online Indication:Nutritional counseling Start:19-Mar-2018 Instruction Type:Patient Education How to access health informa tion online - Detail Indication:Nutritional counseling Start:19-Mar-2018 Instruction Type:Patient Education Patient Instructions Indication:Nutritional counseling Start:19-Mar-2018 Instruction Type:Provider Instructions for Treatment How to access health informa tion online Indication:BMI 30.0-30.9,adult Start:13-Nov-2017 Instruction Type:Patient Education How to access health informa tion online - Detail Indication:BMI 30.0-30.9,adult Start:13-Nov-2017 Instruction Type:Patient Education Patient Instructions Indication:BMI 30.0-30.9,adult Start:13-Nov-2017 Instruction Type:Provider Instructions for Treatment How to access health informa tion online Indication:Diabetes mellitus type II, controlled, with no complications (Renamed from Controlled type 2 diabetes mellitus without complication) Start:07-Aug-2017 Instruction Type:Patient Education How to access health informa tion online - Detail Indication:Diabetes mellitus type II, controlled, with no complications (Renamed from Controlled type 2 diabetes mellitus without complication) Start:07-Aug-2017 Instruction Type:Patient Education Patient Instructions Indication:Diabetes mellitus type II, controlled, with no complications (Renamed from Controlled type 2 diabetes mellitus without complication) Start:07-Aug-2017 Instruction Type:Provider Instructions for Treatment How to access health informa tion online Indication:Diabetes mellitus type II, controlled, with no complications (Renamed from Controlled type 2 diabetes mellitus without complication) Start:01-May-2017 Instruction Type:Patient Education How to access health informa tion online - Detail Indication:Diabetes mellitus type II, controlled, with no complications (Renamed from Controlled type 2 diabetes mellitus without complication) Start:01-May-2017 Instruction Type:Patient Education Patient Instructions Indication:Diabetes mellitus type II, controlled, with no complications (Renamed from Controlled type 2 diabetes mellitus without complication) Start:01-May-2017 Instruction Type:Provider Instructions for Treatment How to access health informa tion online Indication:BMI 32.0-32.9,adult Start:23-Jan-2017 Instruction Type:Patient Education How to access health informa tion online - Detail Indication:BMI 32.0-32.9,adult Start:23-Jan-2017 Instruction Type:Patient Education Patient Instructions Indication:BMI 32.0-32.9,adult Start:23-Jan-2017 Instruction Type:Provider Instructions for Treatment How to access health informa tion online Indication:Diabetes mellitus type II, controlled, with no complications (Renamed from Controlled type 2 diabetes mellitus without complication) Start:17-Oct-2016 Instruction Type:Patient Education How to access health informa tion online - Detail Indication:Diabetes mellitus type II, controlled, with no complications (Renamed from Controlled type 2 diabetes mellitus without complication) Start:17-Oct-2016 Instruction Type:Patient Education Patient Instructions Indication:Diabetes mellitus type II, controlled, with no complications (Renamed from Controlled type 2 diabetes mellitus without complication) Start:17-Oct-2016 Instruction Type:Provider Instructions for Treatment How to access health informa tion online Indication:Diabetes mellitus type II, controlled, with no complications (Renamed from Controlled type 2 diabetes mellitus without complication) Start:11-Jul-2016 Instruction Type:Patient Education How to access health informa tion online - Detail Indication:Diabetes mellitus type II, controlled, with no complications (Renamed from Controlled type 2 diabetes mellitus without complication) Start:11-Jul-2016 Instruction Type:Patient Education Patient Instructions Indication:Diabetes mellitus type II, controlled, with no complications (Renamed from Controlled type 2 diabetes mellitus without complication) Start:11-Jul-2016 Instruction Type:Provider Instructions for Treatment How to access health informa tion online Indication:Flu-like symptoms Start:10-Apr-2016 Instruction Type:Patient Education How to access health informa tion online - Detail Indication:Flu-like symptoms Start:10-Apr-2016 Instruction Type:Patient Education Patient Instructions Indication:Flu-like symptoms Start:10-Apr-2016 Instruction Type:Provider Instructions for Treatment How to access health informa tion online Indication:Diabetes mellitus type II, controlled, with no complications (Renamed from Controlled type 2 diabetes mellitus without complication) Start:21-Mar-2016 Instruction Type:Patient Education How to access health informa tion online - Detail Indication:Diabetes mellitus type II, controlled, with no complications (Renamed from Controlled type 2 diabetes mellitus without complication) Start:21-Mar-2016 Instruction Type:Patient Education Patient Instructions Indication:Diabetes mellitus type II, controlled, with no complications (Renamed from Controlled type 2 diabetes mellitus without complication) Start:21-Mar-2016 Instruction Type:Provider Instructions for Treatment How to access health informa tion online Indication:Diabetes mellitus type II, controlled, with no complications (Renamed from Controlled type 2 diabetes mellitus without complication) Start:14-Dec-2015 Instruction Type:Patient Education How to access health informa tion online - Detail Indication:Diabetes mellitus type II, controlled, with no complications (Renamed from Controlled type 2 diabetes mellitus without complication) Start:14-Dec-2015 Instruction Type:Patient Education Patient Instructions Indication:Diabetes mellitus type II, controlled, with no complications (Renamed from Controlled type 2 diabetes mellitus without complication) Start:14-Dec-2015 Instruction Type:Provider Instructions for Treatment How to access health informa tion online Indication:Diabetes mellitus type 2, uncontrolled (Renamed from Uncontrolled type 2 diabetes mellitus) Start:28-Sep-2015 Instruction Type:Patient Education How to access health informa tion online - Detail Indication:Diabetes mellitus type 2, uncontrolled (Renamed from Uncontrolled type 2 diabetes mellitus) Start:28-Sep-2015 Instruction Type:Patient Education Patient Instructions Indication:Diabetes mellitus type 2, uncontrolled (Renamed from Uncontrolled type 2 diabetes mellitus) Start:28-Sep-2015 Instruction Type:Provider Instructions for Treatment Patient Instructions Indication:Diabetes mellitus type II, controlled, with no complications (Renamed from Controlled type 2 diabetes mellitus without complication) Start:14-Sep-2015 Instruction Type:Provider Instructions for Treatment Name Dates Details How to access health informa tion online Indication:Diabetes mellitus type 2, uncontrolled (Renamed from Uncontrolled type 2 diabetes mellitus) Start:25-Nov-2019 Instruction Type:Patient Education How to access health informa tion online - Detail Indication:Diabetes mellitus type 2, uncontrolled (Renamed from Uncontrolled type 2 diabetes mellitus) Start:25-Nov-2019 Instruction Type:Patient Education Patient Instructions Indication:Diabetes mellitus type 2, uncontrolled (Renamed from Uncontrolled type 2 diabetes mellitus) Start:25-Nov-2019 Instruction Type:Provider Instructions for Treatment How to access health informa tion online Indication:Diabetes mellitus type 2, uncontrolled (Renamed from Uncontrolled type 2 diabetes mellitus) Start:22-Jul-2019 Instruction Type:Patient Education How to access health informa tion online - Detail Indication:Diabetes mellitus type 2, uncontrolled (Renamed from Uncontrolled type 2 diabetes mellitus) Start:22-Jul-2019 Instruction Type:Patient Education Patient Instructions Indication:Diabetes mellitus type 2, uncontrolled (Renamed from Uncontrolled type 2 diabetes mellitus) Start:22-Jul-2019 Instruction Type:Provider Instructions for Treatment How to access health informa tion online Indication:Diabetes mellitus type II, controlled, with no complications (Renamed from Controlled type 2 diabetes mellitus without complication) Start:04-Feb-2019 Instruction Type:Patient Education How to access health informa tion online - Detail Indication:Diabetes mellitus type II, controlled, with no complications (Renamed from Controlled type 2 diabetes mellitus without complication) Start:04-Feb-2019 Instruction Type:Patient Education Patient Instructions Indication:Diabetes mellitus type II, controlled, with no complications (Renamed from Controlled type 2 diabetes mellitus without complication) Start:04-Feb-2019 Instruction Type:Provider Instructions for Treatment How to access health informa tion online Indication:Diabetes mellitus type II, controlled, with no complications (Renamed from Controlled type 2 diabetes mellitus without complication) Start:29-Oct-2018 Instruction Type:Patient Education How to access health informa tion online - Detail Indication:Diabetes mellitus type II, controlled, with no complications (Renamed from Controlled type 2 diabetes mellitus without complication) Start:29-Oct-2018 Instruction Type:Patient Education Patient Instructions Indication:Diabetes mellitus type II, controlled, with no complications (Renamed from Controlled type 2 diabetes mellitus without complication) Start:29-Oct-2018 Instruction Type:Provider Instructions for Treatment How to access health informa tion online Indication:Diabetes mellitus type II, controlled, with no complications (Renamed from Controlled type 2 diabetes mellitus without complication) Start:23-Jul-2018 Instruction Type:Patient Education How to access health informa tion online - Detail Indication:Diabetes mellitus type II, controlled, with no complications (Renamed from Controlled type 2 diabetes mellitus without complication) Start:23-Jul-2018 Instruction Type:Patient Education Patient Instructions Indication:Diabetes mellitus type II, controlled, with no complications (Renamed from Controlled type 2 diabetes mellitus without complication) Start:23-Jul-2018 Instruction Type:Provider Instructions for Treatment How to access health informa tion online Indication:Nutritional counseling Start:19-Mar-2018 Instruction Type:Patient Education How to access health informa tion online - Detail Indication:Nutritional counseling Start:19-Mar-2018 Instruction Type:Patient Education Patient Instructions Indication:Nutritional counseling Start:19-Mar-2018 Instruction Type:Provider Instructions for Treatment How to access health informa tion online Indication:BMI 30.0-30.9,adult Start:13-Nov-2017 Instruction Type:Patient Education How to access health informa tion online - Detail Indication:BMI 30.0-30.9,adult Start:13-Nov-2017 Instruction Type:Patient Education Patient Instructions Indication:BMI 30.0-30.9,adult Start:13-Nov-2017 Instruction Type:Provider Instructions for Treatment How to access health informa tion online Indication:Diabetes mellitus type II, controlled, with no complications (Renamed from Controlled type 2 diabetes mellitus without complication) Start:07-Aug-2017 Instruction Type:Patient Education How to access health informa tion online - Detail Indication:Diabetes mellitus type II, controlled, with no complications (Renamed from Controlled type 2 diabetes mellitus without complication) Start:07-Aug-2017 Instruction Type:Patient Education Patient Instructions Indication:Diabetes mellitus type II, controlled, with no complications (Renamed from Controlled type 2 diabetes mellitus without complication) Start:07-Aug-2017 Instruction Type:Provider Instructions for Treatment How to access health informa tion online Indication:Diabetes mellitus type II, controlled, with no complications (Renamed from Controlled type 2 diabetes mellitus without complication) Start:01-May-2017 Instruction Type:Patient Education How to access health informa tion online - Detail Indication:Diabetes mellitus type II, controlled, with no complications (Renamed from Controlled type 2 diabetes mellitus without complication) Start:01-May-2017 Instruction Type:Patient Education Patient Instructions Indication:Diabetes mellitus type II, controlled, with no complications (Renamed from Controlled type 2 diabetes mellitus without complication) Start:01-May-2017 Instruction Type:Provider Instructions for Treatment How to access health informa tion online Indication:BMI 32.0-32.9,adult Start:23-Jan-2017 Instruction Type:Patient Education How to access health informa tion online - Detail Indication:BMI 32.0-32.9,adult Start:23-Jan-2017 Instruction Type:Patient Education Patient Instructions Indication:BMI 32.0-32.9,adult Start:23-Jan-2017 Instruction Type:Provider Instructions for Treatment How to access health informa tion online Indication:Diabetes mellitus type II, controlled, with no complications (Renamed from Controlled type 2 diabetes mellitus without complication) Start:17-Oct-2016 Instruction Type:Patient Education How to access health informa tion online - Detail Indication:Diabetes mellitus type II, controlled, with no complications (Renamed from Controlled type 2 diabetes mellitus without complication) Start:17-Oct-2016 Instruction Type:Patient Education Patient Instructions Indication:Diabetes mellitus type II, controlled, with no complications (Renamed from Controlled type 2 diabetes mellitus without complication) Start:17-Oct-2016 Instruction Type:Provider Instructions for Treatment How to access health informa tion online Indication:Diabetes mellitus type II, controlled, with no complications (Renamed from Controlled type 2 diabetes mellitus without complication) Start:11-Jul-2016 Instruction Type:Patient Education How to access health informa tion online - Detail Indication:Diabetes mellitus type II, controlled, with no complications (Renamed from Controlled type 2 diabetes mellitus without complication) Start:11-Jul-2016 Instruction Type:Patient Education Patient Instructions Indication:Diabetes mellitus type II, controlled, with no complications (Renamed from Controlled type 2 diabetes mellitus without complication) Start:11-Jul-2016 Instruction Type:Provider Instructions for Treatment How to access health informa tion online Indication:Flu-like symptoms Start:10-Apr-2016 Instruction Type:Patient Education How to access health informa tion online - Detail Indication:Flu-like symptoms Start:10-Apr-2016 Instruction Type:Patient Education Patient Instructions Indication:Flu-like symptoms Start:10-Apr-2016 Instruction Type:Provider Instructions for Treatment How to access health informa tion online Indication:Diabetes mellitus type II, controlled, with no complications (Renamed from Controlled type 2 diabetes mellitus without complication) Start:21-Mar-2016 Instruction Type:Patient Education How to access health informa tion online - Detail Indication:Diabetes mellitus type II, controlled, with no complications (Renamed from Controlled type 2 diabetes mellitus without complication) Start:21-Mar-2016 Instruction Type:Patient Education Patient Instructions Indication:Diabetes mellitus type II, controlled, with no complications (Renamed from Controlled type 2 diabetes mellitus without complication) Start:21-Mar-2016 Instruction Type:Provider Instructions for Treatment How to access health informa tion online Indication:Diabetes mellitus type II, controlled, with no complications (Renamed from Controlled type 2 diabetes mellitus without complication) Start:14-Dec-2015 Instruction Type:Patient Education How to access health informa tion online - Detail Indication:Diabetes mellitus type II, controlled, with no complications (Renamed from Controlled type 2 diabetes mellitus without complication) Start:14-Dec-2015 Instruction Type:Patient Education Patient Instructions Indication:Diabetes mellitus type II, controlled, with no complications (Renamed from Controlled type 2 diabetes mellitus without complication) Start:14-Dec-2015 Instruction Type:Provider Instructions for Treatment How to access health informa tion online Indication:Diabetes mellitus type 2, uncontrolled (Renamed from Uncontrolled type 2 diabetes mellitus) Start:28-Sep-2015 Instruction Type:Patient Education How to access health informa tion online - Detail Indication:Diabetes mellitus type 2, uncontrolled (Renamed from Uncontrolled type 2 diabetes mellitus) Start:28-Sep-2015 Instruction Type:Patient Education Patient Instructions Indication:Diabetes mellitus type 2, uncontrolled (Renamed from Uncontrolled type 2 diabetes mellitus) Start:28-Sep-2015 Instruction Type:Provider Instructions for Treatment Patient Instructions Indication:Diabetes mellitus type II, controlled, with no complications (Renamed from Controlled type 2 diabetes mellitus without complication) Start:14-Sep-2015 Instruction Type:Provider Instructions for Treatment Name Dates Details How to access health informa tion online Indication:Diabetes mellitus type 2, uncontrolled (Renamed from Uncontrolled type 2 diabetes mellitus) Start:25-Nov-2019 Instruction Type:Patient Education How to access health informa tion online - Detail Indication:Diabetes mellitus type 2, uncontrolled (Renamed from Uncontrolled type 2 diabetes mellitus) Start:25-Nov-2019 Instruction Type:Patient Education Patient Instructions Indication:Diabetes mellitus type 2, uncontrolled (Renamed from Uncontrolled type 2 diabetes mellitus) Start:25-Nov-2019 Instruction Type:Provider Instructions for Treatment How to access health informa tion online Indication:Diabetes mellitus type 2, uncontrolled (Renamed from Uncontrolled type 2 diabetes mellitus) Start:22-Jul-2019 Instruction Type:Patient Education How to access health informa tion online - Detail Indication:Diabetes mellitus type 2, uncontrolled (Renamed from Uncontrolled type 2 diabetes mellitus) Start:22-Jul-2019 Instruction Type:Patient Education Patient Instructions Indication:Diabetes mellitus type 2, uncontrolled (Renamed from Uncontrolled type 2 diabetes mellitus) Start:22-Jul-2019 Instruction Type:Provider Instructions for Treatment How to access health informa tion online Indication:Diabetes mellitus type II, controlled, with no complications (Renamed from Controlled type 2 diabetes mellitus without complication) Start:04-Feb-2019 Instruction Type:Patient Education How to access health informa tion online - Detail Indication:Diabetes mellitus type II, controlled, with no complications (Renamed from Controlled type 2 diabetes mellitus without complication) Start:04-Feb-2019 Instruction Type:Patient Education Patient Instructions Indication:Diabetes mellitus type II, controlled, with no complications (Renamed from Controlled type 2 diabetes mellitus without complication) Start:04-Feb-2019 Instruction Type:Provider Instructions for Treatment How to access health informa tion online Indication:Diabetes mellitus type II, controlled, with no complications (Renamed from Controlled type 2 diabetes mellitus without complication) Start:29-Oct-2018 Instruction Type:Patient Education How to access health informa tion online - Detail Indication:Diabetes mellitus type II, controlled, with no complications (Renamed from Controlled type 2 diabetes mellitus without complication) Start:29-Oct-2018 Instruction Type:Patient Education Patient Instructions Indication:Diabetes mellitus type II, controlled, with no complications (Renamed from Controlled type 2 diabetes mellitus without complication) Start:29-Oct-2018 Instruction Type:Provider Instructions for Treatment How to access health informa tion online Indication:Diabetes mellitus type II, controlled, with no complications (Renamed from Controlled type 2 diabetes mellitus without complication) Start:23-Jul-2018 Instruction Type:Patient Education How to access health informa tion online - Detail Indication:Diabetes mellitus type II, controlled, with no complications (Renamed from Controlled type 2 diabetes mellitus without complication) Start:23-Jul-2018 Instruction Type:Patient Education Patient Instructions Indication:Diabetes mellitus type II, controlled, with no complications (Renamed from Controlled type 2 diabetes mellitus without complication) Start:23-Jul-2018 Instruction Type:Provider Instructions for Treatment How to access health informa tion online Indication:Nutritional counseling Start:19-Mar-2018 Instruction Type:Patient Education How to access health informa tion online - Detail Indication:Nutritional counseling Start:19-Mar-2018 Instruction Type:Patient Education Patient Instructions Indication:Nutritional counseling Start:19-Mar-2018 Instruction Type:Provider Instructions for Treatment How to access health informa tion online Indication:BMI 30.0-30.9,adult Start:13-Nov-2017 Instruction Type:Patient Education How to access health informa tion online - Detail Indication:BMI 30.0-30.9,adult Start:13-Nov-2017 Instruction Type:Patient Education Patient Instructions Indication:BMI 30.0-30.9,adult Start:13-Nov-2017 Instruction Type:Provider Instructions for Treatment How to access health informa tion online Indication:Diabetes mellitus type II, controlled, with no complications (Renamed from Controlled type 2 diabetes mellitus without complication) Start:07-Aug-2017 Instruction Type:Patient Education How to access health informa tion online - Detail Indication:Diabetes mellitus type II, controlled, with no complications (Renamed from Controlled type 2 diabetes mellitus without complication) Start:07-Aug-2017 Instruction Type:Patient Education Patient Instructions Indication:Diabetes mellitus type II, controlled, with no complications (Renamed from Controlled type 2 diabetes mellitus without complication) Start:07-Aug-2017 Instruction Type:Provider Instructions for Treatment How to access health informa tion online Indication:Diabetes mellitus type II, controlled, with no complications (Renamed from Controlled type 2 diabetes mellitus without complication) Start:01-May-2017 Instruction Type:Patient Education How to access health informa tion online - Detail Indication:Diabetes mellitus type II, controlled, with no complications (Renamed from Controlled type 2 diabetes mellitus without complication) Start:01-May-2017 Instruction Type:Patient Education Patient Instructions Indication:Diabetes mellitus type II, controlled, with no complications (Renamed from Controlled type 2 diabetes mellitus without complication) Start:01-May-2017 Instruction Type:Provider Instructions for Treatment How to access health informa tion online Indication:BMI 32.0-32.9,adult Start:23-Jan-2017 Instruction Type:Patient Education How to access health informa tion online - Detail Indication:BMI 32.0-32.9,adult Start:23-Jan-2017 Instruction Type:Patient Education Patient Instructions Indication:BMI 32.0-32.9,adult Start:23-Jan-2017 Instruction Type:Provider Instructions for Treatment How to access health informa tion online Indication:Diabetes mellitus type II, controlled, with no complications (Renamed from Controlled type 2 diabetes mellitus without complication) Start:17-Oct-2016 Instruction Type:Patient Education How to access health informa tion online - Detail Indication:Diabetes mellitus type II, controlled, with no complications (Renamed from Controlled type 2 diabetes mellitus without complication) Start:17-Oct-2016 Instruction Type:Patient Education Patient Instructions Indication:Diabetes mellitus type II, controlled, with no complications (Renamed from Controlled type 2 diabetes mellitus without complication) Start:17-Oct-2016 Instruction Type:Provider Instructions for Treatment How to access health informa tion online Indication:Diabetes mellitus type II, controlled, with no complications (Renamed from Controlled type 2 diabetes mellitus without complication) Start:11-Jul-2016 Instruction Type:Patient Education How to access health informa tion online - Detail Indication:Diabetes mellitus type II, controlled, with no complications (Renamed from Controlled type 2 diabetes mellitus without complication) Start:11-Jul-2016 Instruction Type:Patient Education Patient Instructions Indication:Diabetes mellitus type II, controlled, with no complications (Renamed from Controlled type 2 diabetes mellitus without complication) Start:11-Jul-2016 Instruction Type:Provider Instructions for Treatment How to access health informa tion online Indication:Flu-like symptoms Start:10-Apr-2016 Instruction Type:Patient Education How to access health informa tion online - Detail Indication:Flu-like symptoms Start:10-Apr-2016 Instruction Type:Patient Education Patient Instructions Indication:Flu-like symptoms Start:10-Apr-2016 Instruction Type:Provider Instructions for Treatment How to access health informa tion online Indication:Diabetes mellitus type II, controlled, with no complications (Renamed from Controlled type 2 diabetes mellitus without complication) Start:21-Mar-2016 Instruction Type:Patient Education How to access health informa tion online - Detail Indication:Diabetes mellitus type II, controlled, with no complications (Renamed from Controlled type 2 diabetes mellitus without complication) Start:21-Mar-2016 Instruction Type:Patient Education Patient Instructions Indication:Diabetes mellitus type II, controlled, with no complications (Renamed from Controlled type 2 diabetes mellitus without complication) Start:21-Mar-2016 Instruction Type:Provider Instructions for Treatment How to access health informa tion online Indication:Diabetes mellitus type II, controlled, with no complications (Renamed from Controlled type 2 diabetes mellitus without complication) Start:14-Dec-2015 Instruction Type:Patient Education How to access health informa tion online - Detail Indication:Diabetes mellitus type II, controlled, with no complications (Renamed from Controlled type 2 diabetes mellitus without complication) Start:14-Dec-2015 Instruction Type:Patient Education Patient Instructions Indication:Diabetes mellitus type II, controlled, with no complications (Renamed from Controlled type 2 diabetes mellitus without complication) Start:14-Dec-2015 Instruction Type:Provider Instructions for Treatment How to access health informa tion online Indication:Diabetes mellitus type 2, uncontrolled (Renamed from Uncontrolled type 2 diabetes mellitus) Start:28-Sep-2015 Instruction Type:Patient Education How to access health informa tion online - Detail Indication:Diabetes mellitus type 2, uncontrolled (Renamed from Uncontrolled type 2 diabetes mellitus) Start:28-Sep-2015 Instruction Type:Patient Education Patient Instructions Indication:Diabetes mellitus type 2, uncontrolled (Renamed from Uncontrolled type 2 diabetes mellitus) Start:28-Sep-2015 Instruction Type:Provider Instructions for Treatment Patient Instructions Indication:Diabetes mellitus type II, controlled, with no complications (Renamed from Controlled type 2 diabetes mellitus without complication) Start:14-Sep-2015 Instruction Type:Provider Instructions for Treatment Name Dates Details Patient Instructions Indication:Nonsmoker Start:13-Apr-2020 Instruction Type:Provider Instructions for Treatment How to Access Health Informa tion Online using Patient Portal and [employer] Apps Indication:Nonsmoker Start:13-Apr-2020 Instruction Type:Patient Education How to access health informa tion online Indication:Diabetes mellitus type 2, uncontrolled (Renamed from Uncontrolled type 2 diabetes mellitus) Start:25-Nov-2019 Instruction Type:Patient Education How to access health informa tion online - Detail Indication:Diabetes mellitus type 2, uncontrolled (Renamed from Uncontrolled type 2 diabetes mellitus) Start:25-Nov-2019 Instruction Type:Patient Education Patient Instructions Indication:Diabetes mellitus type 2, uncontrolled (Renamed from Uncontrolled type 2 diabetes mellitus) Start:25-Nov-2019 Instruction Type:Provider Instructions for Treatment How to access health informa tion online Indication:Diabetes mellitus type 2, uncontrolled (Renamed from Uncontrolled type 2 diabetes mellitus) Start:22-Jul-2019 Instruction Type:Patient Education How to access health informa tion online - Detail Indication:Diabetes mellitus type 2, uncontrolled (Renamed from Uncontrolled type 2 diabetes mellitus) Start:22-Jul-2019 Instruction Type:Patient Education Patient Instructions Indication:Diabetes mellitus type 2, uncontrolled (Renamed from Uncontrolled type 2 diabetes mellitus) Start:22-Jul-2019 Instruction Type:Provider Instructions for Treatment How to access health informa tion online Indication:Diabetes mellitus type II, controlled, with no complications (Renamed from Controlled type 2 diabetes mellitus without complication) Start:04-Feb-2019 Instruction Type:Patient Education How to access health informa tion online - Detail Indication:Diabetes mellitus type II, controlled, with no complications (Renamed from Controlled type 2 diabetes mellitus without complication) Start:04-Feb-2019 Instruction Type:Patient Education Patient Instructions Indication:Diabetes mellitus type II, controlled, with no complications (Renamed from Controlled type 2 diabetes mellitus without complication) Start:04-Feb-2019 Instruction Type:Provider Instructions for Treatment How to access health informa tion online Indication:Diabetes mellitus type II, controlled, with no complications (Renamed from Controlled type 2 diabetes mellitus without complication) Start:29-Oct-2018 Instruction Type:Patient Education How to access health informa tion online - Detail Indication:Diabetes mellitus type II, controlled, with no complications (Renamed from Controlled type 2 diabetes mellitus without complication) Start:29-Oct-2018 Instruction Type:Patient Education Patient Instructions Indication:Diabetes mellitus type II, controlled, with no complications (Renamed from Controlled type 2 diabetes mellitus without complication) Start:29-Oct-2018 Instruction Type:Provider Instructions for Treatment How to access health informa tion online Indication:Diabetes mellitus type II, controlled, with no complications (Renamed from Controlled type 2 diabetes mellitus without complication) Start:23-Jul-2018 Instruction Type:Patient Education How to access health informa tion online - Detail Indication:Diabetes mellitus type II, controlled, with no complications (Renamed from Controlled type 2 diabetes mellitus without complication) Start:23-Jul-2018 Instruction Type:Patient Education Patient Instructions Indication:Diabetes mellitus type II, controlled, with no complications (Renamed from Controlled type 2 diabetes mellitus without complication) Start:23-Jul-2018 Instruction Type:Provider Instructions for Treatment How to access health informa tion online Indication:Nutritional counseling Start:19-Mar-2018 Instruction Type:Patient Education How to access health informa tion online - Detail Indication:Nutritional counseling Start:19-Mar-2018 Instruction Type:Patient Education Patient Instructions Indication:Nutritional counseling Start:19-Mar-2018 Instruction Type:Provider Instructions for Treatment How to access health informa tion online Indication:BMI 30.0-30.9,adult Start:13-Nov-2017 Instruction Type:Patient Education How to access health informa tion online - Detail Indication:BMI 30.0-30.9,adult Start:13-Nov-2017 Instruction Type:Patient Education Patient Instructions Indication:BMI 30.0-30.9,adult Start:13-Nov-2017 Instruction Type:Provider Instructions for Treatment How to access health informa tion online Indication:Diabetes mellitus type II, controlled, with no complications (Renamed from Controlled type 2 diabetes mellitus without complication) Start:07-Aug-2017 Instruction Type:Patient Education How to access health informa tion online - Detail Indication:Diabetes mellitus type II, controlled, with no complications (Renamed from Controlled type 2 diabetes mellitus without complication) Start:07-Aug-2017 Instruction Type:Patient Education Patient Instructions Indication:Diabetes mellitus type II, controlled, with no complications (Renamed from Controlled type 2 diabetes mellitus without complication) Start:07-Aug-2017 Instruction Type:Provider Instructions for Treatment How to access health informa tion online Indication:Diabetes mellitus type II, controlled, with no complications (Renamed from Controlled type 2 diabetes mellitus without complication) Start:01-May-2017 Instruction Type:Patient Education How to access health informa tion online - Detail Indication:Diabetes mellitus type II, controlled, with no complications (Renamed from Controlled type 2 diabetes mellitus without complication) Start:01-May-2017 Instruction Type:Patient Education Patient Instructions Indication:Diabetes mellitus type II, controlled, with no complications (Renamed from Controlled type 2 diabetes mellitus without complication) Start:01-May-2017 Instruction Type:Provider Instructions for Treatment How to access health informa tion online Indication:BMI 32.0-32.9,adult Start:23-Jan-2017 Instruction Type:Patient Education How to access health informa tion online - Detail Indication:BMI 32.0-32.9,adult Start:23-Jan-2017 Instruction Type:Patient Education Patient Instructions Indication:BMI 32.0-32.9,adult Start:23-Jan-2017 Instruction Type:Provider Instructions for Treatment How to access health informa tion online Indication:Diabetes mellitus type II, controlled, with no complications (Renamed from Controlled type 2 diabetes mellitus without complication) Start:17-Oct-2016 Instruction Type:Patient Education How to access health informa tion online - Detail Indication:Diabetes mellitus type II, controlled, with no complications (Renamed from Controlled type 2 diabetes mellitus without complication) Start:17-Oct-2016 Instruction Type:Patient Education Patient Instructions Indication:Diabetes mellitus type II, controlled, with no complications (Renamed from Controlled type 2 diabetes mellitus without complication) Start:17-Oct-2016 Instruction Type:Provider Instructions for Treatment How to access health informa tion online Indication:Diabetes mellitus type II, controlled, with no complications (Renamed from Controlled type 2 diabetes mellitus without complication) Start:11-Jul-2016 Instruction Type:Patient Education How to access health informa tion online - Detail Indication:Diabetes mellitus type II, controlled, with no complications (Renamed from Controlled type 2 diabetes mellitus without complication) Start:11-Jul-2016 Instruction Type:Patient Education Patient Instructions Indication:Diabetes mellitus type II, controlled, with no complications (Renamed from Controlled type 2 diabetes mellitus without complication) Start:11-Jul-2016 Instruction Type:Provider Instructions for Treatment How to access health informa tion online Indication:Flu-like symptoms Start:10-Apr-2016 Instruction Type:Patient Education How to access health informa tion online - Detail Indication:Flu-like symptoms Start:10-Apr-2016 Instruction Type:Patient Education Patient Instructions Indication:Flu-like symptoms Start:10-Apr-2016 Instruction Type:Provider Instructions for Treatment How to access health informa tion online Indication:Diabetes mellitus type II, controlled, with no complications (Renamed from Controlled type 2 diabetes mellitus without complication) Start:21-Mar-2016 Instruction Type:Patient Education How to access health informa tion online - Detail Indication:Diabetes mellitus type II, controlled, with no complications (Renamed from Controlled type 2 diabetes mellitus without complication) Start:21-Mar-2016 Instruction Type:Patient Education Patient Instructions Indication:Diabetes mellitus type II, controlled, with no complications (Renamed from Controlled type 2 diabetes mellitus without complication) Start:21-Mar-2016 Instruction Type:Provider Instructions for Treatment How to access health informa tion online Indication:Diabetes mellitus type II, controlled, with no complications (Renamed from Controlled type 2 diabetes mellitus without complication) Start:14-Dec-2015 Instruction Type:Patient Education How to access health informa tion online - Detail Indication:Diabetes mellitus type II, controlled, with no complications (Renamed from Controlled type 2 diabetes mellitus without complication) Start:14-Dec-2015 Instruction Type:Patient Education Patient Instructions Indication:Diabetes mellitus type II, controlled, with no complications (Renamed from Controlled type 2 diabetes mellitus without complication) Start:14-Dec-2015 Instruction Type:Provider Instructions for Treatment How to access health informa tion online Indication:Diabetes mellitus type 2, uncontrolled (Renamed from Uncontrolled type 2 diabetes mellitus) Start:28-Sep-2015 Instruction Type:Patient Education How to access health informa tion online - Detail Indication:Diabetes mellitus type 2, uncontrolled (Renamed from Uncontrolled type 2 diabetes mellitus) Start:28-Sep-2015 Instruction Type:Patient Education Patient Instructions Indication:Diabetes mellitus type 2, uncontrolled (Renamed from Uncontrolled type 2 diabetes mellitus) Start:28-Sep-2015 Instruction Type:Provider Instructions for Treatment Patient Instructions Indication:Diabetes mellitus type II, controlled, with no complications (Renamed from Controlled type 2 diabetes mellitus without complication) Start:14-Sep-2015 Instruction Type:Provider Instructions for Treatment Name Dates Details Nutritional counseling : How to access health information online Indication:Nutritional counseling Nutritional counseling : How to access health information online - Detail Indication:Nutritional counseling Nutritional counseling : Viki cook Instructions Indication:Nutritional counseling BMI 30.0-30.9,adult : How to access health information online Indication:BMI 30.0-30.9,adult BMI 30.0-30.9,adult : How to access health information online - Detail Indication:BMI 30.0-30.9,adult BMI 30.0-30.9,adult : Patien t Instructions Indication:BMI 30.0-30.9,adult Diabetes mellitus type II, c ontrolled, with no complications (Renamed from Controlled type 2 diabetes mellitus without complication) : How to access health information online Indication:Diabetes mellitus type II, controlled, with no complications (Renamed from Controlled type 2 diabetes mellitus without complication) Diabetes mellitus type II, c ontrolled, with no complications (Renamed from Controlled type 2 diabetes mellitus without complication) : How to access health information online - Detail Indication:Diabetes mellitus type II, controlled, with no complications (Renamed from Controlled type 2 diabetes mellitus without complication) Diabetes mellitus type II, c ontrolled, with no complications (Renamed from Controlled type 2 diabetes mellitus without complication) : Patient Instructions Indication:Diabetes mellitus type II, controlled, with no complications (Renamed from Controlled type 2 diabetes mellitus without complication) BMI 32.0-32.9,adult : How to access health information online Indication:BMI 32.0-32.9,adult BMI 32.0-32.9,adult : How to access health information online - Detail Indication:BMI 32.0-32.9,adult BMI 32.0-32.9,adult : Patien t Instructions Indication:BMI 32.0-32.9,adult Flu-like symptoms : How to a ccess health information online Indication:Flu-like symptoms Flu-like symptoms : How to a ccess health information online - Detail Indication:Flu-like symptoms Flu-like symptoms : Patient Instructions Indication:Flu-like symptoms Diabetes mellitus type 2, un controlled (Renamed from Uncontrolled type 2 diabetes mellitus) : How to access health information online Indication:Diabetes mellitus type 2, uncontrolled (Renamed from Uncontrolled type 2 diabetes mellitus) Diabetes mellitus type 2, un controlled (Renamed from Uncontrolled type 2 diabetes mellitus) : How to access health information online - Detail Indication:Diabetes mellitus type 2, uncontrolled (Renamed from Uncontrolled type 2 diabetes mellitus) Diabetes mellitus type 2, un controlled (Renamed from Uncontrolled type 2 diabetes mellitus) : Patient Instructions Indication:Diabetes mellitus type 2, uncontrolled (Renamed from Uncontrolled type 2 diabetes mellitus) Summary Purpose Advance Directives No Advanced Directives Records Found Additional Source Comments (unrecognized sect ion and content) No Status Records Found INFORMATION SOURCE (unrecogn ized section and content) DATE CREATED AUTHOR 06/21/2022 Comprehensive In [employer] FOR RECORDS PERTAINING TO PATIENTS WHO ARE OR HAVE BEEN ENROLLED IN A CHEMICAL DEPENDENCY/SUBSTANCEABUSE PROGRAM, SOME INFORMATION MAY BE OMITTED. This clinical summary was aggregated from multiple sources. Caution should be exercised in using it in the provision of clinical care. This summary normalizes information from multiple sources, and as a consequence, information in this document may materially change the coding, format and clinical context of patient data. In addition, data may be omitted in some cases. CLINICAL DECISIONS SHOULD BE BASED ON THE PRIMARY CLINICAL RECORDS. [email or web address] provides no warranty or guarantee of the accuracy or completeness of information in this document.
[2024-09-22] VITALS (9 sets, daily range): BP systolic 147–176; BP diastolic 92–107; PULSE 66–93; RESP 12–18; TEMP 35.8–37.2; O2SAT 95–97; BMI 32.5
--- NOTE | 2024-09-22 01:05 | HP.PCM_ITS ---
HPI - General General Date of Admission: 09/22/24 Date of Service: 09/22/24 Chief Complaint: Numbness and tingling HPI Narrative DORCAS BRISENO, is a 58 M who presents to the emergency room with chief complaint of numbness and tingling of left face and tongue, left hand and left foot. Patient states that over the past 36 hours he has had several episodes where he has had numbness and tingling in his left tongue mouth left hand and left foot that lasts approximately 10 seconds or so each time. Currently he is asymptomatic but states he has had a few episodes while being in the emergency room. Patient denies any headaches, change in vision, earache but does state when he has these episodes he feels a bit lightheaded. Patient denies any nausea vomiting fever, chest pain or shortness of breath. 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 He also had a sinus infection approximately 6 weeks ago. Patient is not on antiplatelet or anticoagulation therapy and he is a diabetic but sugars have been controlled. Patient will be admitted for neurologic evaluation and MRI in the morning. [facility] Medical History (Updated 09/22/24 @ 00:[address] Chalino Smith MD) Abnormal TSH Mixed hyperlipidemia Abnormal cardiac CT angiography Type 2 diabetes mellitus Home Medications ?Medication ?Instructions ?Recorded ?Last Taken ?Type metformin 500 mg tablet 1,000 mg PO BIDCM DIABETES 0 05/12/18 05/12/18 History 1000 MG vitamins A,C,E-eezo-jypfxs 4,296 1 cap PO DAILY Unknown History mcg-226 mg-90 mg capsule (PreserVision AREDS) cholecalciferol (vitamin D3) 125 5,000 unit PO DAILY 1 03/15/18 Unknown History mcg (5,000 unit) capsule dapagliflozin propanediol 10 mg 10 mg PO DAILY 5 Unknown History tablet (Farxiga) semaglutide 0.25 mg or 0.5 mg (2 0.5 mg subcut QWEEK 0 09/21/24 Unknown History mg/3 mL) subcutaneous pen injector (Ozempic) Allergy/AdvReac Type Severity Reaction Status Date / Time No Known Allergies Allergy Verified 09/21/24 22:13 Family History (Updated 01/13/19 @ 15:10 by Marcela Pino) Mother CVA (cerebral vascular accident) Grandfather Heart disease Father Kidney disease Daughter Dypdu-Uvkcxlxks-Wecwz (WPW) syndrome Surgical History History of knee surgery History of umbilical hernia repair Social History (Updated 01/13/19 @ 16:[address] Bakari Gibson MD) Smoking Status: Never smoker alcohol intake: current details: occasional substance use type: does not use caffeine: No ROS Constitutional Constitutional: Denies chills or fever(s) Eyes Eyes: Denies change in vision ENT HEENT: Denies abnormal hearing or ear pain Cardiovascular Cardiovascular: Denies chest pain or edema Respiratory/Chest Respiratory/Chest: Denies shortness of breath at rest Gastrointestinal Gastrointestinal: Denies abdominal pain Genitourinary Genitourinary: Denies dysuria Musculoskeletal Musculoskeletal: Denies back pain or extremity pain Integumentary Integumentary: Denies lesions Neurologic Neurologic: Reports numbness and tingling; Denies abnormal gait or abnormal speech Psychiatric Psychiatric: Denies depression Vital Signs Vital Signs Vital Signs: 09/21/24 22:13 09/21/24 23:00 09/21/24 23:02 Temperature 97.6 F L Temperature Source Temporal Pulse Rate 105 H 97 Respiratory Rate 18 18 Blood Pressure 154/106 H 132/107 H Blood Pressure Mean 122 115 Pulse Ox 97 97 99 Oxygen Delivery Method Room Air Room Air Room Air 09/22/24 00:00 09/22/24 00:00 Temperature 99.0 F Temperature Source Pulse Rate 91 93 Respiratory Rate 16 16 Blood Pressure 150/92 H 150/92 H Blood Pressure Mean 111 111 Pulse Ox 96 97 Oxygen Delivery Method Room Air Weight Weight: 227 lb 12.8 oz Body Mass Index (BMI) 33.6 Physical Exam Const alert, oriented x3 and no apparent distress General Appearance: cooperative and well developed HEENT normocephalic and head/scalp atraumatic Eyes PERRL and EOMs intact bilaterally Neck no lymphadenopathy, supple and no JVD Lymph Lymphatic: no lymphadenopathy noted Resp normal respiratory effort, normal air movement and clear to auscultation bilaterally Cardio regular rate, regular rhythm, S1 normal heart sound, S2 normal heart sound and no murmurs GI normal to inspection, nondistended, normoactive bowel sounds Extremity normal capillary refill General Extremity: Negative for edema Skin General Skin Exam: no breakdown Neuro CN's II-XII intact bilaterally, no focal motor deficits and no sensory deficits noted Speech: speech normal Motor Exam: strength 5/5 throughout Psych thought process normal, cooperative and affect normal Results Lab / Micro Data 09/21/24 22:54 09/21/24 22:54 Labs: Laboratory Results - last 24 hr 09/21/24 22:54: WBC 7.0, RBC 5.39, Hgb 15.5, Hct 44.4, MCV 82.4, MCH 28.8, MCHC 34.9, RDW Std Deviation 40.5, RDW Coeff of Alexey 13.7, Plt Count 258, MPV 9.2, Immature Gran % (Auto) 0.300, Neut % (Auto) 53.3, Lymph % (Auto) 37.1, Moore % (Auto) 6.0, Eos % (Auto) 2.6, Baso % (Auto) 0.7, Absolute Neuts (auto) 3.7, Absolute Lymphs (auto) 2.58, Nucleated RBC % 0, Sodium 136, Potassium 4.2, Chloride 99, Carbon Dioxide 20.2 L, Anion Gap 16 H, BUN 12, Creatinine 1.01, Estim Creat Clear Calc 96.74, Est GFR (MDRD) Non-Af 87, BUN/Creatinine Ratio 11.4, Glucose 185 H, Calcium 9.1 Rhythm Strip Rhythm Strip: Sinus Rhythm Rate: 87 Ectopy: None Imaging Radiology Impression Head/Neck CTA 09/21/24 22:46 IMPRESSION: 1. No acute intracranial abnormality. 2. Widely patent intracranial and cervical arterial vasculature. 3. 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 Reading Location: [facility] Assessment & Plan Assessment/Plan (1) Left sided numbness: (2) Mixed hyperlipidemia: (3) Type 2 diabetes mellitus: (4) Dysequilibrium: PLAN: Plan 1 transient left-sided numbness?admit patient to progressive care unit, neurologic checks every 4 hours per routine protocol and check MRI head in the a.m. consider teleneurology consult as patient case was discussed with neurology in the emergency room. Of note small right ICA aneurysm 2 mm was noted but thought not to be relevant to current presentation based on neurology consult done in the emergency room. Will initiate aspirin therapy 2. Diabetes?continue routine home medications 3. Hyperlipidemia?continue statin 4. DVT prophylaxis?low molecular weight heparin Charges/Coding Visit Charges OBSV E&M: 32926 Observ/hosp same date L2
--- OUTSIDE RECORDS SUMMARY | 2024-09-22 01:19 | XMS RPT_ITS | CCD ---
Author Organization [facility] Care Team Providers Care Inbound Sales Manager Name Role Phone Kathleen, Marva Unavailable Messenger, Nita Unavailable Unavailable Unavailable Unavailable Kathleen, Marva Unavailable Geovanny Toussaint Unavailable Unavailable Messenger, Nita Unavailable Unavailable Unavailable Unavailable Oliverio Garcia Unavailable José Luis, Kim Unavailable Unavailable Bakari Gibson Unavailable Viviane Munoz Unavailable Unavailable Gravius, Angelica Unavailable Unavailable Messenger, Nita Unavailable Unavailable CrossTanja Unavailable Unavailable Kathleen DO, Marva Unavailable [phone] Bakari Gibson MD Unavailable Dr. Oliverio Garcia Unavailable [phone] Gravius 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, Angelica Unavailable Unavailable Slarb [employer] DRIVER, Kim Unavailable Unavailable Messenger RNNita Unavailable Unavailable Unavailable Unavailable Chalo DURANDNTanja Unavailable Unavailable Lakhwinder [employer] DRIVER, Tamar Unavailable Unavailable Kathleen DO, Marva Unavailable [phone] [place], [facility] Unavailable [place] 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, Kayela Unavailable Unavailable Kathleen DO, Marva Attending Unavailable Kathleen DO, Marva Referring Unavailable Kathleen DO, Marva Consulting Unavailable Shadi [employer] DRIVER, Luis Unavailable Unavailable Kathleen DO, Marva Unavailable Lynd, Chrysalis Counciling Unavailable [phone] Bakari Gibson MD Unavailable Dr. Oliverio Garcia Unavailable Sabula [employer] DRIVER, Luis Unavailable Unavailable Cross [employer] DRIVER, Tanja Unavailable Unavailable Gravius 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, Angelica Unavailable Unavailable [place] 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, Kayela Unavailable Unavailable Slarb [employer] DRIVER, Kim Unavailable Unavailable Jared RN, Nita Unavailable [...] on above: This order discontin ued per [facility]. metFORMIN hydrochloride 500 mg oral tablet [...] Quantity: 120 {Tablet} Refills: 3 Ordered: 13-Dec-2020 Kathleen HILL, Work Phone: Comment on above: PATIENT WAS FASTINGP ERFORMED BY: MENDEZ [facility] Tlqols8636 [address] RoadDavis Regional Medical Centerin [place] [id number] Glucose Ql (U) Negative Normal Comprehens tyron Internal Medicine Work Phone: Comment on above: PATIENT WAS FASTINGP ERFORMED BY: MENDEZ [facility] Srjkqg7772 [address] RoadBlue [facility] [id number] Hemoglobin Ql (U) Negative Normal Compreh ensive Internal Medicine Work Phone: Comment on above: PATIENT WAS FASTINGP ERFORMED BY: MENDEZ [facility] Juwrik2555 [address] RoadBlue Ridge Regional Hospital [id number] Hemoglobin Test strip Ql (U) Negative Normal [facility] Work Phone: Ketones Ql (U) Negative Normal Comprehens tyron [facility] Medicine Work Phone: Comment on above: PATIENT WAS FASTINGP ERFORMED BY: MENDEZ [facility] Kqzaqj2551 [address] [facility] [id number] Leukocyte esterase Test strip Ql (U) Negative Normal [facility] Work Phone: Comment on above: PATIENT WAS FASTINGP ERFORMED BY: MENDEZ [facility] Clezvb6277 [address] [facility] [id number] Microscopic observation LM Nom (Urine sed) MICRON Normal [facility] Work Phone: Comment on above: Microscopic follows if indicated. PATIENT WAS FASTINGP ERFORMED BY: MENDEZ [facility] Vnfgjm1526 [address] [facility] [place] [id number] Microscopic observation LM Nom (Urine sed) See below: Normal [facility] Work Phone: Comment on above: Microscopic was giovanni cated and was performed. PATIENT WAS FASTINGP ERFORMED BY: MENDEZ [facility] Wdwsij9815 [address] [place] [id number] Nitrite Ql (U) Negative Normal Comprehens tyron [facility] Medicine Work Phone: Comment on above: PATIENT WAS FASTINGP ERFORMED BY: MENDEZ Caceres[address] [place] [id number] Nitrite Test strip Ql (U) Negative Normal [facility] Work Phone: pH (U) 6.0 [pH] Normal 5.0-7.5 [facility] Work Phone: Comment on above: PATIENT WAS FASTINGP ERFORMED BY: MENDEZ Caceres6370 [address] RoadDublin [place] [id number] pH Test strip (U) 6.0 [pH] Normal 5.0-7.5 Compreh ensive Internal Medicine Work Phone: Protein Ql (U) Negative Normal Comprehens tyron [facility] Medicine Work Phone: Comment on above: PATIENT WAS FASTINGP ERFORMED BY: MENDEZ Caceres[address] [place] [id number] Protein Test strip Ql (U) Negative Normal [facility] Work Phone: Specific gravity Relative Density (U) 1.021 1 Normal 1.005-1.03 0 [facility] Work Phone: Comment on above: PATIENT WAS FASTINGP ERFORMED BY: MENDEZ Caceres[address] [facility] [place] [id number] Urobilinogen Test strip mass conc (U) 0.2 mg/dL Normal 0.2-1.0 Comprehensiv e Internal Medicine Work Phone: Comment on above: PATIENT WAS FASTINGP ERFORMED BY: MENDEZ Caceres[address] [facility] [place] [id number] URINALYSIS, W/ MICRO (00036) Ordered By: Clinical Pharmacy Coordinator on 10-03-2016 Bilirubin Ql (U) Negative Normal Comprehe nsive Internal Medicine; [facility] Work Phone: Comment on above: PATIENT WAS FASTINGP ERFORMED BY: MENDEZ Dudleylin6370 [address] RoadDublin [place] [id number] Glucose Ql (U) Negative Normal Comprehens tyron [facility]; [facility] Work Phone: Comment on above: PATIENT WAS FASTINGP ERFORMED BY: MENDEZ [facility] Ntarlw1302 [address] RoadDublin [place] [id number] Hemoglobin Ql (U) Negative Normal Compreh ensive Internal Medicine; [facility] Work Phone: Comment on above: PATIENT WAS FASTINGP ERFORMED BY: MENDEZ [facility] Hnhdnh8548 [address] RoadDublin [place] [id number] Ketones Ql (U) Negative Normal Comprehens tyron [facility]; [facility] Work Phone: Comment on above: PATIENT WAS FASTINGP ERFORMED BY: MENDEZ [facility] Lxcjxn1273 [address] RoadDublin [place] [id number] Leukocyte esterase Test strip Ql (U) Negative Normal [facility]; [facility] Work Phone: Comment on above: PATIENT WAS FASTINGP ERFORMED BY: MENDEZ [facility] Pzkgcl2885 [address] RoadDublin [place] [id number] Nitrite Ql (U) Negative Normal Comprehens tyron [facility]; [facility] Work Phone: Comment on above: PATIENT WAS FASTINGP ERFORMED BY: MENDEZ [facility] Rivttj8362 [address] RoadDublin [place] [id number] Protein Ql (U) Negative Normal Comprehens tyron [facility]; [facility] Work Phone: Comment on above: PATIENT WAS FASTINGP ERFORMED BY: MENDEZ [facility] Kkwcrj8941 [address] RoadDublin [place] [id number] Urobilinogen (U) [Mass/Vol] 0.2 mg/dL Normal 0.2-1.0 [facility]; [facility] Work Phone: Comment on above: PATIENT WAS FASTINGP ERFORMED BY: MENDEZ [facility] Joorbq4229 [address]zo RoadDublin [place] [id number] Blood Glucose , Office ([phone])Ordered By: Nancy Young on 07-11-2016 Glucose Glucometer molar conc (BldC) 119 1 Normal [facility] Work Phone: HgA1C , Office ([phone])Ordere d By: Nita Coleman on 07-11-2016 Hemoglobin A1c/Hemoglobin.total mass fraction (Bld) 5.9 % Normal 4.6 - 7.1 Comprehensiv e Internal Medicine Work Phone: Rapid Flu ([phone] 2)Ordered By: Kim Ordonez on 04-10-2016 FLUAV Ag IA Ql (Throat) Positive Normal [facility] Work Phone: FLUAV Ag IA Ql (Throat) Positive Normal [facility]; [facility] Work Phone: Blood Glucose , Office ([phone])Ordered By: Nancy Young on 03-21-2016 Glucose Glucometer molar conc (BldC) 119 1 Normal [facility] Work Phone: HgA1C , Office ([phone])Ordere d By: Nancy Young on 03-21-2016 Hemoglobin A1c/Hemoglobin.total mass fraction (Bld) 5.7 % Normal 4.6 - 7.1 Comprehensiv e Internal Medicine Work Phone: CALCIFIDIOL ([phone]) VIT D 25 on 03-07-2016 25-Hydroxyvitamin D2+25-Hydroxyvitamin D3 mass conc 56.1 ng/mL Normal 30.0-100.0 [facility] Work Phone: Comment on above: Vitamin D deficiency has been defined by the [place] ofMedicine and an Endocrine Society practice guideline as alevel of serum 25-OH vitamin D less than 20 ng/mL (1,2).The Endocrine Society went on to further define vitamin Dinsufficiency as a level between 21 and 29 ng/mL (2).1. IOM ([place] of Medicine). 2010. Dietary reference intakes for calcium and D. [place]: The National Academies Press.2. Magno MF, Do [place], Jos PRATER, et al. Evaluation, treatment, and prevention of vitamin D deficiency: an Endocrine Society clinical practice guideline. JCEM. 2010; 96(7):1911-30. PATIENT WAS FASTINGP ERFORMED BY: [facility] Wzdtci9992 [address] [facility] [id number] CBC W/AUTO DIFF WBC (51825)o n 03-07-2016 Basophils #/vol (Bld) 0.0 {x10E3/uL} Normal 0.0-0.2 [facility] Work Phone: Comment on above: PATIENT WAS FASTINGP ERFORMED BY: [place] 8404070 [facility] [id number] Basophils Auto #/vol (Bld) 0.0 {x10E3/uL} Normal 0.0-0.2 [facility] Work Phone: Basophils/100 WBC (Bld) 0 % Normal [facility] Work Phone: Comment on above: PATIENT WAS FASTINGP ERFORMED BY: [place] 8404070 [facility] [id number] Basophils/100 WBC Auto (Bld) 0 % Normal [facility] Work Phone: Eosinophils #/vol (Bld) 0.2 {x10E3/uL} Normal 0.0-0.4 [facility] Work Phone: Comment on above: PATIENT WAS FASTINGP ERFORMED BY: [place] 8404070 [facility] [id number] Eosinophils Auto #/vol (Bld) 0.2 {x10E3/uL} Normal 0.0-0.4 [facility] Work Phone: Eosinophils/100 WBC (Bld) 3 % Normal [facility] Work Phone: Comment on above: PATIENT WAS FASTINGP ERFORMED BY: [place] 8404070 [facility] [id number] Eosinophils/100 WBC Auto (Bld) 3 % Normal [facility] Work Phone: Erythrocyte distribution width Auto Ratio (RBC) 14.0 % Normal 12.3-15.4 [facility] Work Phone: Erythrocyte distribution width Ratio (RBC) 14.0 % Normal 12.3-15.4 [facility] Work Phone: Comment on above: PATIENT WAS FASTINGP ERFORMED BY: [place] [id number] [facility] [id number] Hematocrit Auto Volume Fraction (Bld) 44.4 % Normal 37.5-51.0 [facility] Work Phone: Hematocrit Volume Fraction (Bld) 44.4 % Normal 37.5-51.0 [facility] Work Phone: Comment on above: PATIENT WAS FASTINGP ERFORMED BY: MENDEZ [facility]6370 [facility] [id number] Hemoglobin mass conc (Bld) 14.9 g/dL Normal 12.6-17.7 [facility] Work Phone: Comment on above: PATIENT WAS FASTINGP ERFORMED BY: MENDEZ [facility] Ngogjj0362 [facility] [id number] Immature granulocytes #/vol (Bld) 0.0 {x10E3/uL} Normal 0.0-0.1 [facility] Work Phone: Comment on above: PATIENT WAS FASTINGP ERFORMED BY: MENDEZ [facility] Nxtxyf6329 [facility] [id number] Immature granulocytes/100 WBC (Bld) 0 % Normal [facility] Work Phone: Comment on above: PATIENT WAS FASTINGP ERFORMED BY: MENDEZ [facility] Nkuqek1687 [facility] [id number] Lymphocytes #/vol (Bld) 2.1 {x10E3/uL} Normal 0.7-3.1 [facility] Work Phone: Comment on above: PATIENT WAS FASTINGP ERFORMED BY: [place] 8404070 [facility] [id number] Lymphocytes Auto #/vol (Bld) 2.1 {x10E3/uL} Normal 0.7-3.1 [facility] Work Phone: Lymphocytes/100 WBC (Bld) 35 % Normal [facility] Work Phone: Comment on above: PATIENT WAS FASTINGP ERFORMED BY: MENDEZ [place] [id number] [facility] [id number] Lymphocytes/100 WBC Auto (Bld) 35 % Normal [facility] Work Phone: MCH Auto Entitic mass (RBC) 27.1 pg Normal 26.6-33.0 [facility] Work Phone: MCH Entitic mass (RBC) 27.1 pg Normal 26.6-33.0 [facility] Work Phone: Comment on above: PATIENT WAS FASTINGP ERFORMED BY: [facility] Oudyze0530 [facility] [id number] MCHC Auto mass conc (RBC) 33.6 g/dL Normal 31.5-35.7 [facility] Work Phone: MCHC mass conc (RBC) 33.6 g/dL Normal 31.5-35.7 Comp [facility] Work Phone: Comment on above: PATIENT WAS FASTINGP ERFORMED BY: MENDEZ [facility] Uuwapm0198 [facility] [id number] MCV Auto Entitic volume (RBC) 81 fL Normal 79-97 [facility] Work Phone: MCV Entitic volume (RBC) 81 fL Normal 79-97 [facility] Work Phone: Comment on above: PATIENT WAS FASTINGP ERFORMED BY: MENDEZ [facility] Tdfexa1400 [facility] [id number] Monocytes #/vol (Bld) 0.4 {x10E3/uL} Normal 0.1-0.9 [facility] Work Phone: Comment on above: PATIENT WAS FASTINGP ERFORMED BY: [facility]6370 [facility] [id number] Monocytes Auto #/vol (Bld) 0.4 {x10E3/uL} Normal 0.1-0.9 [facility] Work Phone: Monocytes/100 WBC (Bld) 7 % Normal [facility] Work Phone: Comment on above: PATIENT WAS FASTINGP ERFORMED BY: [facility]6370 [facility] [id number] Monocytes/100 WBC Auto (Bld) 7 % Normal [facility] Work Phone: Neutrophils #/vol (Bld) 3.3 {x10E3/uL} Normal 1.4-7.0 [facility] Work Phone: Comment on above: PATIENT WAS FASTINGP ERFORMED BY: MENDEZ [facility] Hssixy[address] [facility] [id number] Neutrophils Auto #/vol (Bld) 3.3 {x10E3/uL} Normal 1.4-7.0 [facility] Work Phone: Neutrophils/100 WBC (Bld) 55 % Normal [facility] Work Phone: Comment on above: PATIENT WAS FASTINGP ERFORMED BY: MENDEZ [facility] Argnoy2655 [address] [facility] [id number] Neutrophils/100 WBC Auto (Bld) 55 % Normal [facility] Work Phone: Platelets #/vol (Bld) 260 {x10E3/uL} Normal 150-379 [facility] Work Phone: Comment on above: PATIENT WAS FASTINGP ERFORMED BY: MENDEZ [facility] Udglmx6773 [facility] [id number] Platelets Auto #/vol (Bld) 260 {x10E3/uL} Normal 150-379 [facility] Work Phone: RBC #/vol (Bld) 5.50 {x10E6/uL} Normal 4.14-5.80 [facility] Medicine Work Phone: Comment on above: PATIENT WAS FASTINGP ERFORMED BY: [place] 8404070 [facility] [id number] RBC Auto #/vol (Bld) 5.50 {x10E6/uL} Normal 4.14-5.80 [facility] Work Phone: WBC #/vol (Bld) 6.0 {x10E3/uL} Normal 3.4-10.8 [facility] Work Phone: Comment on above: PATIENT WAS FASTINGP ERFORMED BY: LabLucas [place] 8010170 [facility] [id number] WBC Auto #/vol (Bld) 6.0 {x10E3/uL} Normal 3.4-10.8 [facility] Work Phone: CBC W/AUTO DIFF WBC (00933)O rdered By: Clinical Pharmacy Coordinator on 03-07-2016 Basophils (Bld) [#/Vol] 0.0 10*3/uL Normal 0.0-0.2 [facility]; [facility] Work Phone: Comment on above: PATIENT WAS FASTINGP ERFORMED BY: [facility]6370 [facility] [id number] Eosinophils (Bld) [#/Vol] 0.2 10*3/uL Normal 0.0-0.4 [facility]; [facility] Work Phone: Comment on above: PATIENT WAS FASTINGP ERFORMED BY: [place] 8404070 [facility] [id number] Immature granulocytes (Bld) [#/Vol] 0.0 10*3/uL Normal 0.0-0.1 [facility]; [facility] Work Phone: Comment on above: PATIENT WAS FASTINGP ERFORMED BY: [facility]6370 [facility] [id number] Lymphocytes (Bld) [#/Vol] 2.1 10*3/uL Normal 0.7-3.1 [facility]; [facility] Work Phone: Comment on above: PATIENT WAS FASTINGP ERFORMED BY: [facility]6370 [facility] [id number] Monocytes (Bld) [#/Vol] 0.4 10*3/uL Normal 0.1-0.9 [facility]; [facility] Work Phone: Comment on above: PATIENT WAS FASTINGP ERFORMED BY: [facility]6370 [facility] [id number] Neutrophils (Bld) [#/Vol] 3.3 10*3/uL Normal 1.4-7.0 [facility]; [facility] Work Phone: Comment on above: PATIENT WAS FASTINGP ERFORMED BY: CB [facility] Oywtwo4246 [address] RoadDublin [place] [id number] Platelets (Bld) [#/Vol] 260 10*3/uL Normal 150-379 [facility]; [facility] Work Phone: Comment on above: PATIENT WAS FASTINGP ERFORMED BY: CB [facility] Egdkcl9116 [address] Roadblin [place] [id number] RBC (Bld) [#/Vol] 5.50 10*6/uL Normal 4.14-5.80 Compr [facility] Internal Medicine; [facility] Work Phone: Comment on above: PATIENT WAS FASTINGP ERFORMED BY: CB [facility] Wcgriq1794 [address] Roadblin [place] [id number] WBC (Bld) [#/Vol] 6.0 10*3/uL Normal 3.4-10.8 Compre [facility] Internal Medicine; [facility] Work Phone: Comment on above: PATIENT WAS FASTINGP ERFORMED BY: CB [facility] Rfeuvl9664 [address] [facility] [place] [id number] LIPID PANEL (16143)on 2016 Cholesterol in HDL mass conc 43 mg/dL Normal [facility] Work Phone: Comment on above: PATIENT WAS FASTINGP ERFORMED BY: CB [facility] Vgvsgw7385 [address] [facility] [place] [id number]; non-emergent till apt Cholesterol in LDL mass conc 156 mg/dL Abnormal 0-99 [facility] Work Phone: Comment on above: PATIENT WAS FASTINGP ERFORMED BY: CB [facility] Soowll[address]37 [address] [facility] [place] [id number]; non-emergent till apt Cholesterol in LDL/Cholesterol in HDL mass ratio 3.6 {ratio_units} Normal 0.0-3.6 [facility] Work Phone: Comment on above: LDL/HDL Ratio Men Wo men 1/2 Avg.Risk 1.0 1.5 Avg.Risk 3.6 3.2 2X Avg.Risk 6.2 5.0 3X Avg.Risk 8.0 6.1 PATIENT WAS FASTINGP ERFORMED BY: MENDEZ LabCammelyssa Mrljzi[address] [facility] [id number]; non-emergent till apt Cholesterol in VLDL mass conc 29 mg/dL Normal 5-40 [facility] Work Phone: Comment on above: PATIENT WAS FASTINGP ERFORMED BY: MENDEZ LabGabbie DudleyBgbqyn2288 [address] [facility] [place] [id number]; non-emergent till apt Cholesterol mass conc 228 mg/dL Abnormal 100-199 [facility] Work Phone: Comment on above: PATIENT WAS FASTINGP ERFORMED BY: MENDEZ LabGabbie DudleyXavaos9820 [address] [facility] [id number]; non-emergent till apt Triglyceride mass conc 144 mg/dL Normal 0-149 [facility] Work Phone: Comment on above: PATIENT WAS FASTINGP ERFORMED BY: MENDEZ CaroleGabbie DudleyBmxdtu2060 [facility] [id number]; non-emergent till apt METABOLIC PANEL, COMPREHENSI VE (16131)on 03-07-2016 Albumin mass conc 4.5 g/dL Normal 3.5-5.5 Compreh [facility] Internal Medicine Work Phone: Comment on above: PATIENT WAS FASTINGP ERFORMED BY: MENDEZ LabCammelyssa Szjgcd6713 [facility] [place] [id number] Albumin/Globulin mass ratio 1.7 {ratio} Normal 1.1-2.5 [facility] Work Phone: Comment on above: PATIENT WAS FASTINGP ERFORMED BY: MENDEZ [facility] Psypvx[address]71 [address] [facility] [place] [id number] ALP enzyme act/vol 55 [iU]/L Normal 39-117 [facility] Internal Medicine Work Phone: Comment on above: PATIENT WAS FASTINGP ERFORMED BY: MENDEZ [facility] Ouxlxk[address]74 [address] [facility] [place] [id number] ALT enzyme act/vol 20 [iU]/L Normal 0-44 [facility] Internal Medicine Work Phone: Comment on above: PATIENT WAS FASTINGP ERFORMED BY: MENDEZ LabComelyssa Rqkwky6576 [address] [facility] [id number] AST enzyme act/vol 19 [iU]/L Normal 0-40 Compre [facility] Internal Medicine Work Phone: Comment on above: PATIENT WAS FASTINGP ERFORMED BY: MENDEZ LabComelyssa DudleyPfyftu3045 [facility] [id number] Bilirubin mass conc 0.6 mg/dL Normal 0.0-1.2 Compr ensive Internal Medicine Work Phone: Comment on above: PATIENT WAS FASTINGP ERFORMED BY: MENDEZ LabGabbie Gouxqz6768 [facility] [id number] Calcium mass conc 9.6 mg/dL Normal 8.7-10.2 Compreh [facility] Work Phone: Comment on above: PATIENT WAS FASTINGP ERFORMED BY: MENDEZ LabGabbie DudleyOxhebn7239 [facility] [id number] Chloride molar conc 99 mmol/L Normal 96-106 Compr ensive Internal Medicine Work Phone: Comment on above: PATIENT WAS FASTINGP ERFORMED BY: MENDEZ LabComelyssa Dmqvbj3842 [facility] [id number] CO2 molar conc 24 mmol/L Normal 18-29 Comprehens tyron Internal Medicine Work Phone: Comment on above: PATIENT WAS FASTINGP ERFORMED BY: MENDEZ LabComelyssa DudleyTrdmep2580 [facility] [id number] Creatinine mass conc 0.86 mg/dL Normal 0.76-1.27 Comp [facility] Internal [facility] Work Phone: Comment on above: PATIENT WAS FASTINGP ERFORMED BY: MENDEZ LabComelyssa Jodtkw1751 [facility] [id number] GFR/1.73 sq M predicted among blacks CKD-EPI vol rate/area (S/P/Bld) 119 mL/min/1.73 Normal Comprehensiv e Internal Medicine Work Phone: Comment on above: PATIENT WAS FASTINGP ERFORMED BY: MENDEZ [facility] Ovkjjm6662 [address] [facility] [place] [id number] GFR/1.73 sq M predicted among non-blacks CKD-EPI vol rate/area (S/P/Bld) 103 mL/min/1.73 Normal [facility] Work Phone: Comment on above: PATIENT WAS FASTINGP ERFORMED BY: MENDEZ [facility] Zihcwh3411 [address] [facility] [id number] Globulin Calculated mass conc (S) 2.6 g/dL Normal 1.5-4.5 [facility] Work Phone: Globulin mass conc (S) 2.6 g/dL Normal 1.5-4.5 [facility] Work Phone: Comment on above: PATIENT WAS FASTINGP ERFORMED BY: MENDEZ LabComelyssa DudleyYqsjcb7523 [facility] [id number] Glucose mass conc 105 mg/dL Abnormal 65-99 Compreh ensive Internal Medicine Work Phone: Comment on above: PATIENT WAS FASTINGP ERFORMED BY: MENDEZ [facility] Fkzjjs[address] [facility] [id number] Potassium molar conc 4.7 mmol/L Normal 3.5-5.2 Comp rehensive Internal Medicine Work Phone: Comment on above: PATIENT WAS FASTINGP ERFORMED BY: MENDEZ [facility] Imklkc8780 [address] [facility] [id number] Protein mass conc 7.1 g/dL Normal 6.0-8.5 Compreh ensive Internal Medicine Work Phone: Comment on above: PATIENT WAS FASTINGP ERFORMED BY: MENDEZ [facility] Hgsezm0364 [address] [facility] [id number] Sodium molar conc 142 mmol/L Normal 134-144 Compreh ensive Internal Medicine Work Phone: Comment on above: PATIENT WAS FASTINGP ERFORMED BY: MENDEZ [facility] Bdccgn1806 [address] [facility] [place] [id number] Urea nitrogen mass conc 13 mg/dL Normal 6-24 [facility] Work Phone: Comment on above: PATIENT WAS FASTINGP ERFORMED BY: MENDEZ [facility] Depfda4983 [address] RoadDublin [place] [id number] Urea nitrogen/Creatinine mass ratio 15 mg/mg Normal 9-20 [facility] Work Phone: Comment on above: PATIENT WAS FASTINGP ERFORMED BY: MENDEZ [facility] Oayuaq4126 [address]zo RoadDublin [place] [id number] METABOLIC PANEL, COMPREHENSI VE ([id number])Ordered By: Clinical Pharmacy Coordinator on 03-07-2016 ALP [Catalytic activity/Vol] 55 U/L Normal 39-117 [facility]; [facility] Work Phone: Comment on above: PATIENT WAS FASTINGP ERFORMED BY: MENDEZ LabCammelyssa DudleyPrtpkb6411 Al[address]zo RoadDublin [place] [id number] ALT [Catalytic activity/Vol] 20 U/L Normal 0-44 [facility]; [facility] Work Phone: Comment on above: PATIENT WAS FASTINGP ERFORMED BY: MENDEZ [facility] Qnnbvz0220 [address] RoadDublin [place] [id number] AST [Catalytic activity/Vol] 19 U/L Normal 0-40 [facility]; [facility] Work Phone: Comment on above: PATIENT WAS FASTINGP ERFORMED BY: MENDEZ LabCammelyssa Raphvs6198 [address] RoadDublin [place] [id number] MICROALBUMINOrdered By: Syst em Christian Counselor on 03-07-2016 Albumin DL <= 20 mg/L (U) [Mass/Vol] mg/dL Normal Comprehensiv e Internal Medicine; [facility] Work Phone: Comment on above: PATIENT WAS FASTINGP ERFORMED BY: MENDEZ [facility] Gpdmsd3776 Al[address]zo RoadDublin [place] [id number] MICROALBUMINon 03-07-2016 Albumin DL <= 20 mg/L mass conc (U) mg/dL Normal [facility] Work Phone: Comment on above: PATIENT WAS FASTINGP ERFORMED BY: MENDEZ [facility] Nfmjlp0238 [address] RoadDublin [place] [id number] Albumin/Creatinine mass ratio (U) <1.9 Normal 0.0-30.0 [facility] Work Phone: Comment on above: PATIENT WAS FASTINGP ERFORMED BY: MENDEZ [facility] Jqogxf[address] [facility] [id number] Creatinine mass conc (U) 156.6 mg/dL Normal [facility] Work Phone: Comment on above: PATIENT WAS FASTINGP ERFORMED BY: MENDEZ [facility] Alrqwr63[address] [facility] [id number] Microscopic Examinationon Bacteria LM.HPF #/area (Urine sed) None seen Normal [facility] Work Phone: Comment on above: PATIENT WAS FASTINGP ERFORMED BY: MENDEZ [facility] Qhjsos3657 [address] [facility] [id number] Epithelial cells LM.HPF #/area (Urine sed) None seen Normal 0 - 10 [facility] Work Phone: Comment on above: PATIENT WAS FASTINGP ERFORMED BY: MENDEZ [facility] Yacdwt8326 [address] [facility] [place] [id number] Mucus LM Ql (Urine sed) Present Normal [facility] Work Phone: Mucus Ql (Urine sed) Present Normal Comp rehensive Internal Medicine Work Phone: Comment on above: PATIENT WAS FASTINGP ERFORMED BY: MENDEZ [facility] Xjqzmn6965 [address] [facility]in [place] [id number] RBC LM.HPF #/area (Urine sed) 0-2 Normal 0 - 2 [facility] Work Phone: Comment on above: PATIENT WAS FASTINGP ERFORMED BY: MENDEZ [facility] Cktycu0371 [address] [facility]in [place] [id number] WBC LM.HPF #/area (Urine sed) 0-5 Normal 0 - 5 [facility] Work Phone: Comment on above: PATIENT WAS FASTINGP ERFORMED BY: MENDEZ [facility] Vdmnsl1588 [address] [facility]in [place] [id number] URINALYSIS, W/ MICRO ([id number]) on 03-07-2016 Appearance Nom (U) Clear Normal Compre hensive Internal Medicine Work Phone: Comment on above: PATIENT WAS FASTINGP ERFORMED BY: MENDEZ LabGabbie DudleyTwecht75[address] RoadDublin [place] [id number] Bilirubin Ql (U) Negative Normal Comprehe nsive Internal Medicine Work Phone: Comment on above: PATIENT WAS FASTINGP ERFORMED BY: MENDEZ Dudleylin6370 [address] RoadDublin [place] [id number] Color Nom (U) Yellow Normal Comprehensi ve Internal Medicine Work Phone: Comment on above: PATIENT WAS FASTINGP ERFORMED BY: MENDEZ LabGabbie DudleyGxynlq7199 [address] RoadDublin [place] [id number] Glucose Ql (U) Negative Normal Comprehens tyron [facility] Medicine Work Phone: Comment on above: PATIENT WAS FASTINGP ERFORMED BY: MENDEZ Caceres6370 [address]Dublin [place] [id number] Hemoglobin Ql (U) Negative Normal Compreh ensive [facility] Medicine Work Phone: Comment on above: PATIENT WAS FASTINGP ERFORMED BY: MENDEZ Dudleylin6370 [address] RoadDublin [place] [id number] Hemoglobin Test strip Ql (U) Negative Normal [facility] Work Phone: Ketones Ql (U) Negative Normal Comprehens tyron [facility] Work Phone: Comment on above: PATIENT WAS FASTINGP ERFORMED BY: MENDEZ Dudleylin6370 [address] RoadDublin [place] [id number] Leukocyte esterase Test strip Ql (U) Negative Normal [facility] Work Phone: Comment on above: PATIENT WAS FASTINGP ERFORMED BY: MENDEZ LabGabbie Yuphai2690 [address] RoadDublin [place] [id number] Microscopic observation LM Nom (Urine sed) See below: Normal [facility] Work Phone: Comment on above: Microscopic was giovanni cated and was performed. PATIENT WAS FASTINGP ERFORMED BY: MENDEZ [facility] Aiqnzs4446 [address] RoadDublin [place] [id number] Microscopic observation LM Nom (Urine sed) MICRON Normal [facility] Work Phone: Comment on above: Microscopic follows if indicated. PATIENT WAS FASTINGP ERFORMED BY: MENDEZ LabGabbie DudleyOmzlbf7062 Al[address] RoadDublin [place] [id number] Nitrite Ql (U) Negative Normal Comprehens tyron [facility] Work Phone: Comment on above: PATIENT WAS FASTINGP ERFORMED BY: MENDEZ [facility] Xfzofz7372 [address] RoadDublin [place] [id number] Nitrite Test strip Ql (U) Negative Normal [facility] Work Phone: pH (U) 6.0 [pH] Normal 5.0-7.5 [facility] Work Phone: Comment on above: PATIENT WAS FASTINGP ERFORMED BY: MENDEZ LabGabbie DudleyDubvzn7339 [address]Dublin [place] [id number] pH Test strip (U) 6.0 [pH] Normal 5.0-7.5 Compreh ensive Internal Medicine Work Phone: Protein Ql (U) Negative Normal Comprehens tyron [facility] Work Phone: Comment on above: PATIENT WAS FASTINGP ERFORMED BY: MENDEZ LabGabbie DudleyRhthuc0033 [address]Dublin [place] [id number] Protein Test strip Ql (U) Negative Normal [facility] Work Phone: Specific gravity Relative Density (U) 1.021 1 Normal 1.005-1.03 0 [facility] Work Phone: Comment on above: PATIENT WAS FASTINGP ERFORMED BY: MENDEZ [facility] Vjrlbu7466 [address]Dublin [place] [id number] Urobilinogen Test strip mass conc (U) 0.2 mg/dL Normal 0.2-1.0 Comprehensiv e Internal Medicine Work Phone: Comment on above: PATIENT WAS FASTINGP ERFORMED BY: MENDEZ [facility] Gydoos[address] [facility]D[place] [id number] URINALYSIS, W/ MICRO ([id number]) Ordered By: Clinical Pharmacy Coordinator on 03-07-2016 Bilirubin Ql (U) Negative Normal Comprehe nsive Internal Medicine; [facility] Work Phone: Comment on above: PATIENT WAS FASTINGP ERFORMED BY: MENDEZ Caceres6370 [facility] [id number] Glucose Ql (U) Negative Normal Comprehens tyron [facility]; [facility] Work Phone: Comment on above: PATIENT WAS FASTINGP ERFORMED BY: MENDEZ [facility] [id number] Hemoglobin Ql (U) Negative Normal Compreh ensive [facility] Medicine; [facility] Work Phone: Comment on above: PATIENT WAS FASTINGP ERFORMED BY: MENDEZ Caceres6370 [facility] [id number] Ketones Ql (U) Negative Normal Comprehens tyron [facility]; [facility] Work Phone: Comment on above: PATIENT WAS FASTINGP ERFORMED BY: MENDEZ Caceres6370 [facility] [id number] Leukocyte esterase Test strip Ql (U) Negative Normal [facility]; [facility] Work Phone: Comment on above: PATIENT WAS FASTINGP ERFORMED BY: MENDEZ Caceres6370 [facility] [id number] Nitrite Ql (U) Negative Normal Comprehens tyron [facility]; [facility] Work Phone: Comment on above: PATIENT WAS FASTINGP ERFORMED BY: MENDEZ Caceres6370 [facility] [id number] Protein Ql (U) Negative Normal Comprehens tyron [facility]; [facility] Work Phone: Comment on above: PATIENT WAS FASTINGP ERFORMED BY: MENDEZ Caceres6370 [facility] [id number] Urobilinogen (U) [Mass/Vol] 0.2 mg/dL Normal 0.2-1.0 [facility]; [facility] Work Phone: Comment on above: PATIENT WAS FASTINGP ERFORMED BY: MENDEZ Leerp Iyysbs1511 [address]Dublin [place] [id number] HgA1C , Office ([id number])Ordere d By: Marva Wang on 12-14-2015 Hemoglobin A1c/Hemoglobin.total mass fraction (Bld) 6.1 % Normal 4.6 - 7.1 Comprehensiv e [facility] Medicine Work Phone: HEPATIC FUNCTION PANEL (8007 6)on 11-30-2015 Albumin mass conc 4.5 g/dL Normal 3.5-5.5 Compreh ensive Internal Medicine Work Phone: Comment on above: PATIENT WAS FASTINGP ERFORMED BY: CB [facility] Zfcyod9787 Al[address] RoadDublin [place] [id number] ALP enzyme act/vol 54 [iU]/L Normal 39-117 [facility] Work Phone: Comment on above: PATIENT WAS FASTINGP ERFORMED BY: CB [facility] Vlbzkh0214 [address] RoadDublin [place] [id number] ALT enzyme act/vol 25 [iU]/L Normal 0-44 [facility] Medicine Work Phone: Comment on above: PATIENT WAS FASTINGP ERFORMED BY: CB [facility] Axerzc7099 [address] RoadDublin [place] [id number] AST enzyme act/vol 21 [iU]/L Normal 0-40 [facility] Work Phone: Comment on above: PATIENT WAS FASTINGP ERFORMED BY: CB [facility] Zmhfzg4983 [address] RoadDublin [place] [id number] Bilirubin mass conc 0.4 mg/dL Normal 0.0-1.2 Compr [facility] Internal Medicine Work Phone: Comment on above: PATIENT WAS FASTINGP ERFORMED BY: CB [facility] Bboksq3417 [address] RoadDublin [place] [id number] Bilirubin.direct mass conc 0.14 mg/dL Normal 0.00-0.40 [facility] Work Phone: Comment on above: PATIENT WAS FASTINGP ERFORMED BY: CB [facility] Xoocnj5420 [address] RoadDuin [place] [id number] Protein mass conc 7.3 g/dL Normal 6.0-8.5 Compreh ensive Internal Medicine Work Phone: Comment on above: PATIENT WAS FASTINGP ERFORMED BY: MENDEZ Caecres6370 [address]Dublin [place] [id number] HEPATIC FUNCTION PANEL (8007 6)Ordered By: Clinical Pharmacy Coordinator on 11-30-2015 ALP [Catalytic activity/Vol] 54 U/L Normal 39-117 [facility]; [facility] Work Phone: Comment on above: PATIENT WAS FASTINGP ERFORMED BY: MENDEZ Caceres[address] [facility]bl[facility] [place] [id number] ALT [Catalytic activity/Vol] 25 U/L Normal 0-44 [facility]; [facility] Work Phone: Comment on above: PATIENT WAS FASTINGP ERFORMED BY: MENDEZ Caceres[address] [facility] HospitalDublin [place] [id number] AST [Catalytic activity/Vol] 21 U/L Normal 0-40 [facility]; [facility] Work Phone: Comment on above: PATIENT WAS FASTINGP ERFORMED BY: MENDEZ Caceres[address] [facility] [place] [id number] LIPID PANEL (34838)on 2015 Cholesterol in HDL mass conc 34 mg/dL Abnormal [facility] Work Phone: Comment on above: According to ATP-III Guidelines, HDL-C >59 mg/dL is considered anegative risk factor for CHD. PATIENT WAS FASTINGP ERFORMED BY: MENDEZ Dudleylin6[address] [facility] [id number] Cholesterol in LDL mass conc 139 mg/dL Abnormal 0-99 [facility] Work Phone: Comment on above: PATIENT WAS FASTINGP ERFORMED BY: MENDEZ Dudleylin6[address] [facility] [place] [id number] Cholesterol in LDL/Cholesterol in HDL mass ratio 4.1 {ratio_units} Abnormal 0.0-3.6 [facility] Work Phone: Comment on above: LDL/HDL Ratio Men Wo men 1/2 Avg.Risk 1.0 1.5 Avg.Risk 3.6 3.2 2X Avg.Risk 6.2 5.0 3X Avg.Risk 8.0 6.1 PATIENT WAS FASTINGP ERFORMED BY: [employer] Dnousk[address] [facility]Blue [facility] [id number] Cholesterol in VLDL mass conc 41 mg/dL Abnormal 5-40 [facility] Work Phone: Comment on above: PATIENT WAS FASTINGP ERFORMED BY: Bandwdth PublishingWinslow Indian Health Care CenterRiwomw4502 [address] [facility]VRBlue [facility] [id number] Cholesterol mass conc 214 mg/dL Abnormal 100-199 [facility] Work Phone: Comment on above: PATIENT WAS FASTINGP ERFORMED BY: BigDeal70 [address] [facility]VRBlue [facility] [id number] Triglyceride mass conc 204 mg/dL Abnormal 0-149 [facility] Work Phone: Comment on above: PATIENT WAS FASTINGP ERFORMED BY: BigDeal70 [facility] [id number] PSA (PROSTATE SPECIFIC ANTIG EN) (V76.44)on 11-30-2015 Prostate specific Ag mass conc 0.4 ng/mL Normal 0.0-4.0 [facility] Work Phone: Comment on above: Bradly ECLIA methodol ogy. .According to the [place] U[employer], Serum PSA shoulddecrease and remain [...] malignant disease. PATIENT WAS FASTINGP ERFORMED BY: [employer] Mjoncr8858 [address] [facility]VRBlue [facility] [id number] CALCIFEDIOL (71765)on 2015 25-Hydroxyvitamin D2+25-Hydroxyvitamin D3 mass conc 27.8 ng/mL Abnormal 30.0-100.0 [facility] Work Phone: Comment on above: Vitamin D deficiency has been defined by the [place] ofMedicine and an Endocrine Society practice guideline as alevel of serum 25-OH vitamin D less than 20 ng/mL (1,2).The Endocrine Society went on to further define vitamin Dinsufficiency as a level between 21 and 29 ng/mL (2).1. IOM ([place] of Medicine). 2010. Dietary reference intakes for calcium and D. [place]: The National Academies Press.2. Magno MF, Do MILES, Jos PRATER, et al. Evaluation, treatment, and prevention of vitamin D deficiency: an Endocrine Society clinical practice guideline. JCEM. 2010; 96(7):1911-30. PATIENT WAS FASTINGP ERFORMED BY: Vennli70 ipDatatel [place] [id number] LIPID PANEL (78918)on 2015 Cholesterol in HDL mass conc 43 mg/dL Normal [facility] Work Phone: Comment on above: According to ATP-III Guidelines, HDL-C >59 mg/dL is considered anegative risk factor for CHD. PATIENT WAS FASTINGP ERFORMED BY: Vennli70 ipDatatel [place] [id number] Cholesterol in LDL mass conc 166 mg/dL Abnormal 0-99 [facility] Work Phone: Comment on above: PATIENT WAS FASTINGP ERFORMED BY: [employer]6370 PlayCanvasin [place] [id number] Cholesterol in LDL/Cholesterol in HDL mass ratio 3.9 {ratio_units} Abnormal 0.0-3.6 [facility] Work Phone: Comment on above: LDL/HDL Ratio Men Wo men 1/2 Avg.Risk 1.0 1.5 Avg.Risk 3.6 3.2 2X Avg.Risk 6.2 5.0 3X Avg.Risk 8.0 6.1 PATIENT WAS FASTINGP ERFORMED BY: [employer] Holdingslin6370 [employer] [place]ingbl[place] [id number] Cholesterol in VLDL mass conc 35 mg/dL Normal 5-40 [facility] Work Phone: Comment on above: PATIENT WAS FASTINGP ERFORMED BY: MENDEZ [facility] Gicqui3374 [address] RoadDublin [place] [id number] Cholesterol mass conc 244 mg/dL Abnormal 100-199 [facility] Work Phone: Comment on above: PATIENT WAS FASTINGP ERFORMED BY: [facility] Dflnpl9589 Al[address]zo RoadDublin [place] [id number] Triglyceride mass conc 174 mg/dL Abnormal 0-149 [facility] Work Phone: Comment on above: PATIENT WAS FASTINGP ERFORMED BY: [facility] Extlpw9603 [address] Roadblin [place] [id number] METABOLIC PANEL, COMPREHENSI VE (92616)on 09-14-2015 Albumin mass conc 4.7 g/dL Normal 3.5-5.5 Compreh [facility] Internal Medicine Work Phone: Comment on above: PATIENT WAS FASTINGP ERFORMED BY: [facility] Iltcde2467 [address] [facility] [id number] Information: [id number] Albumin/Globulin mass ratio 1.5 {ratio} Normal 1.1-2.5 [facility] Work Phone: Comment on above: PATIENT WAS FASTINGP ERFORMED BY: [facility] Zgtvdm7[address] [facility]bl[facility] [place] [id number] Information: 190993,G89471 ALP enzyme act/vol 66 [iU]/L Normal 39-117 [facility] Work Phone: Comment on above: PATIENT WAS FASTINGP ERFORMED BY: CB [facility] Unelxw1777 [address] Roadblin [place] [id number] Information: 282404,P31770 ALT enzyme act/vol 153 [iU]/L Abnormal 0-44 [facility] Internal Medicine Work Phone: Comment on above: PATIENT WAS FASTINGP ERFORMED BY: CB [facility] Rbzihw5192 [address]zo RoadDublin [place] [id number] Information: 253469,C02401 AST enzyme act/vol 87 [iU]/L Abnormal 0-40 Compre [facility] Internal Medicine Work Phone: Comment on above: PATIENT WAS FASTINGP ERFORMED BY: MENDEZ Caceres6370 [facility] [id number] Information: 246670,[id number] Bilirubin mass conc 0.9 mg/dL Normal 0.0-1.2 Compr ensive Internal Medicine Work Phone: Comment on above: PATIENT WAS FASTINGP ERFORMED BY: MENDEZ LabLucas [place] 8010170 [facility] [id number] Information: 297403,[id number] Calcium mass conc 9.6 mg/dL Normal 8.7-10.2 Compreh [facility] centerive Internal Medicine Work Phone: Comment on above: PATIENT WAS FASTINGP ERFORMED BY: MENDEZ [address] [id number] Information: 138102,G48888 Chloride molar conc 96 mmol/L Abnormal 97-108 Compr [facility] Internal Medicine Work Phone: Comment on above: PATIENT WAS FASTINGP ERFORMED BY: MENDEZ [facility] Opeadc1930 [facility] [id number] Information: 059017,K00217 CO2 molar conc 19 mmol/L Normal 18-29 Comprehens tyron Internal Medicine Work Phone: Comment on above: PATIENT WAS FASTINGP ERFORMED BY: LabCoDwayne Ville 8839370 [facility] [id number] Information: 219674,C73527 Creatinine mass conc 0.78 mg/dL Normal 0.76-1.27 Comp [facility] Internal Medicine Work Phone: Comment on above: PATIENT WAS FASTINGP ERFORMED BY: [facility] Bxxzzs6985 [facility] [id number] Information: 264682,[id number] GFR/1.73 sq M predicted among blacks CKD-EPI vol rate/area (S/P/Bld) 124 mL/min/1.73 Normal Comprehensiv e Internal Medicine Work Phone: Comment on above: PATIENT WAS FASTINGP ERFORMED BY: MENDEZ [facility] Udapox6585 [facility] [id number] Information: 282093,I98129 GFR/1.73 sq M predicted among non-blacks CKD-EPI vol rate/area (S/P/Bld) 107 mL/min/1.73 Normal [facility] Work Phone: Comment on above: PATIENT WAS FASTINGP ERFORMED BY: LabCoGreystone Park Psychiatric HospitalUwvbxi9088 [facility] [id number] Information: 478322,H86436 Globulin Calculated mass conc (S) 3.2 g/dL Normal 1.5-4.5 [facility] Work Phone: Globulin mass conc (S) 3.2 g/dL Normal 1.5-4.5 [facility] Work Phone: Comment on above: PATIENT WAS FASTINGP ERFORMED BY: LabCoGreystone Park Psychiatric HospitalSutblh3534 [facility] [id number] Information: 324581,S62924 Glucose mass conc 134 mg/dL Abnormal 65-99 Compreh ensive Internal Medicine Work Phone: Comment on above: PATIENT WAS FASTINGP ERFORMED BY: [facility] Wxlgca2593 [facility] [id number] Information: 093632,C50793 Potassium molar conc 4.4 mmol/L Normal 3.5-5.2 Comp rehensive Internal Medicine Work Phone: Comment on above: PATIENT WAS FASTINGP ERFORMED BY: [facility] Wgswnn0310 [facility] [id number] Information: 742043,H37718 Protein mass conc 7.9 g/dL Normal 6.0-8.5 Compreh ensive Internal Medicine Work Phone: Comment on above: PATIENT WAS FASTINGP ERFORMED BY: [facility] Zrfuxw6850 [facility] [id number] Information: 407015,L15539 Sodium molar conc 138 mmol/L Normal 134-144 Compreh ensive Internal Medicine Work Phone: Comment on above: PATIENT WAS FASTINGP ERFORMED BY: MENDEZ [facility] Kfaiuo7398 [facility] [id number] Information: 598867,L49704 Urea nitrogen mass conc 13 mg/dL Normal 6-24 [facility] Work Phone: Comment on above: PATIENT WAS FASTINGP ERFORMED BY: LabAspirus [facility] Hospital6370 [facility] [id number] Information: 623771,L01012 Urea nitrogen/Creatinine mass ratio 17 mg/mg Normal 9-20 [facility] Work Phone: Comment on above: PATIENT WAS FASTINGP ERFORMED BY: LabAspirus [facility] Hospital6370 [facility] [id number] Information: 796724,Q20469 METABOLIC PANEL, COMPREHENSI VE (12867)Ordered By: Clinical Pharmacy Coordinator on 09-14-2015 ALP [Catalytic activity/Vol] 66 U/L Normal 39-117 [facility]; [facility] Work Phone: Comment on above: PATIENT WAS FASTINGP ERFORMED BY: LabAspirus [facility] Hospital6370 [facility] [id number] Information: 955865,[id number] ALT [Catalytic activity/Vol] 153 U/L Abnormal 0-44 [facility]; [facility] Work Phone: Comment on above: PATIENT WAS FASTINGP ERFORMED BY: LabUniversity [facility] Huoexl7055 [facility] [id number] Information: 861416,[id number] AST [Catalytic activity/Vol] 87 U/L Abnormal 0-40 [facility]; [facility] Work Phone: Comment on above: PATIENT WAS FASTINGP ERFORMED BY: LabUniversity [facility] Qvkopx8706 [facility] [id number] Information: 904672,[id number] MICROALBUMINon 09-14-2015 Albumin DL <= 20 mg/L mass conc (U) 5.7 ug/mL Normal [facility] Work Phone: Comment on above: PATIENT WAS FASTINGP ERFORMED BY: [facility]6370 [facility] [id number] Albumin/Creatinine mass ratio (U) 3.9 {mg/g_creat} Normal 0.0-30.0 [facility] Work Phone: Comment on above: PATIENT WAS FASTINGP ERFORMED BY: LabCoGreystone Park Psychiatric HospitalButgbk0343 [facility] [id number] Creatinine mass conc (U) 146.9 mg/dL Normal [facility] Work Phone: Comment on above: PATIENT WAS FASTINGP ERFORMED BY: [facility]6370 [facility] [id number] TSH (THYROID STIMULATING HOR BRYN) (54863)on 09-14-2015 Thyrotropin Qn 1.770 {uIU/mL} Normal 0.450-4.50 0 [facility] Work Phone: Comment on above: PATIENT WAS FASTINGP ERFORMED BY: LabAspirus [facility] Hospital6370 [facility] [id number] Basic Metabolic Profile (BMP )on 09-08-2015 Basic metabolic 2000 panel 100 mmol/L Normal 98-107 [facility] Work Phone: Comment on above: [facility] Frt[address]pg[address] [place], [place], [id number] Basic metabolic 2000 panel 82 mL/min Normal [facility] Work Phone: Comment on above: GFR Calc [facility] [address]ydnqbpr[address] [place], [place], [id number] Basic metabolic 2000 panel 68 mL/min Normal [facility] Work Phone: Comment on above: Non- GFR Calc [facility] Nxcenbykta[address] [place], [place], [id number] Basic metabolic 2000 panel 1.22 mg/dL Normal 0.70-1.30 [facility] Work Phone: Comment on above: The validity of the calculated GFR AND GFRAA in patients over70 years has not been determined. Clinical correlation isessential. [facility] Kacxqoeyxf9839 [address] [place], [place], [address] Basic metabolic 2000 panel 74.85 ml/min Normal [facility] Work Phone: Comment on above: [facility] [address] [place], [address] Basic metabolic 2000 panel 15 mg/dL Normal 7-18 [facility] Work Phone: Comment on above: [facility] [address] [place], [place], [address] Basic metabolic 2000 panel 4.1 mmol/L Normal 3.5-5.1 [facility] Work Phone: Comment on above: Moderate Hemolysis, Result may be falsely increased. [facility] [address] [place], [address] Basic metabolic 2000 panel 242 mg/dL Abnormal 70-110 [facility] Work Phone: Comment on above: Glucose result great er than or equal to 200 mg/dLsuggests DIABETES MELLITUS per A.D.A. criteria. [facility] [address] [place], [place], [phone] Basic metabolic 2000 panel 134 mmol/L Abnormal 136-145 [facility] Work Phone: Comment on above: [facility] [address] [place], [place], [phone] Basic metabolic 2000 panel 9.0 mg/dL Normal 8.5-10.1 [facility] Work Phone: Comment on above: [facility] [address] [place], [place], [phone] Basic metabolic 2000 panel 7 1 Normal 5-15 [facility] Work Phone: Comment on above: [facility] [address] [place], [place], [phone] Basic metabolic 2000 panel 12.3 {RATIO} Normal 10-20 [facility] Work Phone: Comment on above: [facility] [address] [place], [place], [phone] Basic metabolic 2000 panel 27.0 mmol/L Normal 21.0-32.0 [facility] Work Phone: Comment on above: [facility] [address] [place], [address] Bedside Glucoseon 09-08-2015 Bedside Glucose 214 mg/dL Abnormal 70-110 Comprehen [facility] Work Phone: Comment on above: MANAGEMENT OF PATIEN T CARE PER NURSING PROTOCOL [facility] LaboratoryPoint of [address] [place], [place] [phone] CBC W/Diff, Automatedon 08-25 Absolute Neut 3.0 {X10_3/uL} Normal 2.0-7.7 Compreh ensive Internal Medicine Work Phone: Comment on above: [facility] [address] [place], [place], [phone] Basophils/100 WBC (Bld) 0.2 % Normal 0-1 [facility] Work Phone: Comment on above: [facility] [address] [place], [address] Basophils/100 WBC Auto (Bld) 0.2 % Normal 0-1 [facility] Work Phone: Eosinophils/100 WBC (Bld) 1.9 % Normal 0-5 [facility] Work Phone: Comment on above: [facility] [address] [place], [phone] Eosinophils/100 WBC Auto (Bld) 1.9 % Normal 0-5 [facility] Work Phone: Erythrocyte distribution width Auto Ratio (RBC) 13.2 % Normal 11.6-14.6 [facility] Work Phone: Erythrocyte distribution width Ratio (RBC) 13.2 % Normal 11.6-14.6 [facility] Work Phone: Comment on above: [facility] [address] [place], [place], [phone] Hematocrit Auto Volume Fraction (Bld) 46.3 % Normal 40-54 [facility] Work Phone: Hematocrit Volume Fraction (Bld) 46.3 % Normal 40-54 [facility] Work Phone: Comment on above: [facility] [address] [place], [address] Hemoglobin mass conc (Bld) 16.3 g/dL Normal 13.0-16.5 [facility] Work Phone: Comment on above: [place] [address] [place], [address] IM GRAN % 0.200 % Normal 0.0-0.9 [facility] Work Phone: Comment on above: IG% - Immature Granu locytes (promyelocytes, myelocytes andmetamyelocytes) > 1% indicates that a LEFT SHIFT is Present. [facility] [address] [place], [place], [phone] Lymphocytes #/vol (Bld) 2.65 {X10_3/ul} Normal 0.83-4.51 [facility] Work Phone: Comment on above: [facility] [address] [place], [address] Lymphocytes/100 WBC (Bld) 43.0 % Abnormal 19-41 [facility] Work Phone: Comment on above: [facility] [address] [place], [address] Lymphocytes/100 WBC Auto (Bld) 43.0 % Abnormal 19-41 [facility] Work Phone: MCH Auto Entitic mass (RBC) 28.7 pg Normal 27.0-32.0 [facility] Work Phone: MCH Entitic mass (RBC) 28.7 pg Normal 27.0-32.0 [facility] Work Phone: Comment on above: [facility] [address] [place], [address] MCHC Auto mass conc (RBC) 35.2 {g/gl} Normal 32-36 [facility] Work Phone: MCHC mass conc (RBC) 35.2 {g/gl} Normal 32-[address] [facility] prehensive Internal Medicine Work Phone: Comment on above: [facility] [address] [place], [address] MCV Auto Entitic volume (RBC) 81.7 fL Normal 80-94 [facility] Work Phone: MCV Entitic volume (RBC) 81.7 fL Normal 80-94 [facility] Work Phone: Comment on above: [facility] [address] [place], [address] Monocytes/100 WBC (Bld) 6.2 % Normal 0-10 [facility] Work Phone: Comment on above: [facility] [address] [place], [address] Monocytes/100 WBC Auto (Bld) 6.2 % Normal 0-10 [facility] Work Phone: Neutrophils/100 WBC (Bld) 48.5 % Normal 47-70 [facility] Work Phone: Comment on above: [facility] [address] [place], [address] Neutrophils/100 WBC Auto (Bld) 48.5 % Normal 47-70 [facility] Work Phone: Platelet mean volume Auto Entitic volume (Bld) 10.2 fL Normal 6.2-12.0 [facility] Work Phone: Platelet mean volume Entitic volume (Bld) 10.2 fL Normal 6.2-12.0 Comprehensi ve Internal Medicine Work Phone: Comment on above: [facility] [address] [place], [address] Platelets #/vol (Bld) 222 10*3/uL Normal 150-450 [facility] Work Phone: Comment on above: [facility] [address] [place], [address] Platelets Auto #/vol (Bld) 222 10*3/uL Normal 150-450 [facility] Work Phone: RBC #/vol (Bld) 5.67 {M/mm3} Normal 4.6-6.2 Compreh ensive Internal Medicine Work Phone: Comment on above: [facility] [address] [place], [address] RBC Auto #/vol (Bld) 5.67 {M/mm3} Normal 4.6-6.2 [facility] Work Phone: RDW SD 39.4 fL Normal 35.1-43.9 [facility] Work Phone: Comment on above: [facility] [address] [place], [address] WBC #/vol (Bld) 6.2 10*3/uL Normal 4.4-11.0 Comprehe nsive Internal Medicine Work Phone: Comment on above: [facility] [address] [place], [address] WBC Auto #/vol (Bld) 6.2 10*3/uL Normal 4.4-11.[address] [facility] prehensive Internal Medicine Work Phone: CBC W/Diff, Automated 39.4 fL Normal 35.1-43.9 [facility] Internal Medicine Work Phone: CBC W/Diff, Automated [...] Internal Medicine Work Phone: Comment on above: [facility] [address] [facility] [place], [place], [address] GAVIN DIR SEMI-QLon 02-10-2010 GAVIN DIR SEMI-QL [...] of the ankle. Dictated on 02/10/101724 by Harsh Westribed on 02/10/101724 by Tomi GONZALEZ by Ney [...] Alvarado on 02/11/102156 Sign by: Shaquille Alvarado Result: NORM C+C Result: ADEQUATE ANTI-CCP [id number] 02-10-2010 ANTI-CCP [id number] 2 {units} Normal 0-19 [facility] Work Phone: Comment on above: Negative <20 Weak po sitive 20 - 39 Moderate positive 40 - 59 Strong positive >59Performed at: [facility] - [facility] [address] [place], [place] [id number] Director: Barak Hill MD, Phone: [phone] C-REACTIVE PROTon 02-10-2010 CRP mass conc mg/L Normal 0.0-3.0 Comprehensi Internal Medicine Work Phone: Comment on above: C-Reactive Protein ( CRP) provides useful information for thediagnosis, therapy and monitoring of inflammatory processesand associated diseases. For the evaluation of Relative Riskfor Cardiovascular Disease, a High Sensitivity CRP (HSCRP)should be ordered. CBCD,SMEAR DIFFon 02-10-2010 Eosinophils/100 WBC (Bld) 4 % Normal 0-5 [facility] Internal Medicine Work Phone: Eosinophils/100 WBC Auto (Bld) 4 % Normal 0-5 [facility] Internal Medicine Work Phone: Erythrocyte distribution width Auto Ratio (RBC) 13.8 % Normal 11.6-14.6 [facility] Internal Medicine Work Phone: Erythrocyte distribution width Ratio (RBC) 13.8 % Normal 11.6-14.6 [facility] Internal Medicine Work Phone: Hematocrit Auto Volume Fraction (Bld) 44.1 % Normal 40-54 [facility] Internal Medicine Work Phone: Hematocrit Volume Fraction (Bld) 44.1 % Normal 40-54 [facility] Internal Medicine Work Phone: Hemoglobin mass conc (Bld) 15.4 g/dL Normal 14.0-18.0 [facility] Internal Medicine Work Phone: Lymphocytes/100 WBC (Bld) 24 % Normal 19-41 [facility] Internal Medicine Work Phone: Lymphocytes/100 WBC Auto (Bld) 24 % Normal 19-41 [facility] Internal Medicine Work Phone: MCH Auto Entitic mass (RBC) 28.6 pg Normal 27.0-32.0 [facility] Internal Medicine Work Phone: MCH Entitic mass (RBC) 28.6 pg Normal 27.0-32.0 [facility] Internal Medicine Work Phone: MCHC Auto mass [...] #/vol (Bld) 7.0 10*3/uL Normal 4.4-11.0 Comprehe nsive Internal Medicine Work Phone: WBC Auto #/vol (Bld) 7.0 10*3/uL Normal 4.4-11.0 Com prehensive Internal Medicine Work Phone: CBCD,SMEAR DIFF 100 1 Normal Comprehen sive Internal Medicine Work Phone: CBCD,SMEAR DIFF 70 % Normal 47-70 [facility] Work Phone: COMP METABOLICon 02-10-2010 Albumin mass conc 4.2 g/dL Normal 3.4-5.0 [facility] Internal Medicine Work Phone: Albumin/Globulin mass ratio 1.1 {RATIO} Normal 0.9-2.4 [facility] Internal Medicine Work Phone: ALP enzyme act/vol 71 U/L Normal 50-136 [facility] Internal Medicine Work Phone: ALT enzyme act/vol 82 U/L Abnormal 12-78 [facility] Internal Medicine Work Phone: Anion gap 3 molar conc 10 mmol/L Normal 5-15 [facility] Internal Medicine Work Phone: Anion gap molar conc 10 mmol/L Normal 5-15 [facility] Internal Medicine Work Phone: AST enzyme act/vol 33 U/L Normal 15-37 [facility] Internal Medicine Work Phone: Bilirubin mass conc 0.70 mg/dL Normal 0.00-1.00 [facility] Internal Medicine Work Phone: Calcium mass conc 9.2 mg/dL Normal 8.5-10.1 [facility] Internal Medicine Work Phone: Chloride molar conc 103 mmol/L Normal 98-107 [facility] Internal Medicine Work Phone: CO2 molar conc 27.0 mmol/L Normal 21.0-32.0 [facility] Work Phone: Creatinine mass conc 0.8 mg/dL Normal 0.8-1.3 [facility] Internal Medicine Work Phone: GFR/1.73 sq M predicted among blacks MDRD vol rate/area (S/P/Bld) 137 mL/min/{1.73_m2} Normal [facility] Internal Medicine Work Phone: GFR/1.73 sq M.predicted [...] Facility 10-24-2022 08:47-0400 Body height 175.26 cm Luis Shadi [employer] [facility]; [facility] Work Phone: 10-24-2022 08:47-0400 Body mass index (BMI) [Ratio] 30 kg/m2 [facility]; [facility] Work Phone: 10-24-2022 08:47-0400 Body surface area Derived from formula 2.08 m2 [facility]; [facility] Work Phone: 10-24-2022 08:47-0400 Body temperature 96.4 [degF] [facility]; [facility] Work Phone: 10-24-2022 08:47-0400 Body weight 92.14 kg [facility]; [facility] Work Phone: 10-24-2022 08:47-0400 Diastolic blood pressure 74 mm[Hg] [facility]; [facility] Work Phone: 10-24-2022 08:47-0400 Heart rate 71 /min [facility]; [facility] Work Phone: 10-24-2022 08:47-0400 Respiratory rate 18 /min [facility]; [facility] Work Phone: 10-24-2022 08:47-0400 SaO2% (BldA) [Mass fraction] 98 % [facility]; [facility] Work Phone: 10-24-2022 08:47-0400 Systolic blood pressure 138 mm[Hg] [facility]; [facility] Work Phone: 08-06-2022 08:18-0400 Body height 175.26 cm [facility]; [facility] Work Phone: 08-06-2022 08:18-0400 Body mass index (BMI) [Ratio] 29.83 kg/m2 [facility]; [facility] Work Phone: 08-06-2022 08:18-0400 Body surface area Derived from formula 2.07 m2 [facility]; [facility] Work Phone: 08-06-2022 08:18-0400 Body temperature 97.9 [degF] [facility]; [facility] Work Phone: 08-06-2022 08:18-0400 Body weight 91.63 kg [facility]; [facility] Work Phone: 08-06-2022 08:18-0400 Diastolic blood pressure 80 mm[Hg] [facility]; [facility] Work Phone: 08-06-2022 08:18-0400 Heart rate 65 /min [facility]; [facility] Work Phone: 08-06-2022 08:18-0400 SaO2% (BldA) [Mass fraction] 98 % [facility]; [facility] Work Phone: 08-06-2022 08:18-0400 Systolic blood pressure 130 mm[Hg] [facility]; [facility] Work Phone: 07-18-2022 08:40-0400 Body height 175.26 cm [facility]; [facility] Work Phone: 07-18-2022 08:40-0400 Body mass index (BMI) [Ratio] 30.35 kg/m2 [facility]; [facility] Work Phone: 07-18-2022 08:40-0400 Body surface area Derived from formula 2.09 m2 [facility]; [facility] Work Phone: 07-18-2022 08:40-0400 Body temperature 98.2 [degF] [facility]; [facility] Work Phone: 05-24-2023 08:40-0400 Body weight 93.21 kg [facility]; [facility] Work Phone: 07-18-2022 08:40-0400 Diastolic blood pressure 62 mm[Hg] [facility]; [facility] Work Phone: Comment on above: Patient Position: Sitting; Cuff Location : Left Arm; Cuff Size: Standard 07-18-2022 08:40-0400 Heart rate 71 /min [facility]; [facility] Work Phone: Comment on above: Pattern: Regular 07-18-2022 08:40-0400 Respiratory rate 18 /min [facility]; [facility] Work Phone: Comment on above: Pattern: Unlabored 07-18-2022 08:40-0400 SaO2% (BldA) [Mass fraction] 97 % [facility]; [facility] Work Phone: Comment on above: Room air 07-18-2022 08:40-0400 Systolic blood pressure 132 mm[Hg] [facility]; [facility] Work Phone: Comment on above: Patient Position: Sitting; Cuff Location : Left Arm; Cuff Size: Standard 04-11-2022 08:16-0500 Body height 175.26 cm [facility]; [facility] Work Phone: 04-11-2022 08:16-0500 Body mass index (BMI) [Ratio] 34.11 kg/m2 [facility]; [facility] Work Phone: 04-11-2022 08:16-0500 Body surface area Derived from formula 2.2 m2 [facility]; [facility] Work Phone: 04-11-2022 08:16-0500 Body temperature 96.96 [degF] [facility] Comprehensiv e Internal Medicine; [facility] Work Phone: 04-11-2022 08:16-0500 Body weight 104.78 kg [facility]; [facility] Work Phone: 04-11-2022 08:16-0500 Diastolic blood pressure 80 mm[Hg] [facility]; [facility] Work Phone: Comment on above: Patient Position: Sitting; Cuff Location : Left Arm; Cuff Size: Standard 04-11-2022 08:16-0500 Heart rate 73 /min [facility]; [facility] Work Phone: Comment on above: Pattern: Regular 04-11-2022 08:16-0500 Respiratory rate 16 /min [facility] Comprehensiv e Internal Medicine; [facility] Work Phone: Comment on above: Pattern: Unlabored 04-11-2022 08:16-0500 SaO2% (BldA) [Mass fraction] 95 % [facility]; [facility] Work Phone: Comment on above: Room air 04-11-2022 08:16-0500 Systolic blood pressure 140 mm[Hg] [facility]; [facility] Work Phone: Comment on above: Patient Position: Sitting; Cuff Location : Left Arm; Cuff Size: Standard 01-03-2022 08:20-0500 Body height 175.26 cm [facility]; [facility] Work Phone: 01-03-2022 08:20-0500 Body mass index (BMI) [Ratio] 33.13 kg/m2 [facility]; [facility] Work Phone: 01-03-2022 08:20-0500 Body surface area Derived from formula 2.17 m2 [facility]; [facility] Work Phone: 01-03-2022 08:20-0500 Body temperature 96.9 [degF] [facility] Comprehensiv e Internal Medicine; [facility] Work Phone: 01-03-2022 08:20-0500 Body [facility] 101.78 [facility]; [facility] Work Phone: 01-03-2022 08:20-0500 Diastolic blood pressure 80 mm[Hg] [facility]; [facility] Work Phone: Comment on above: Patient Position: Sitting; Cuff Location : Left Arm; Cuff Size: Standard 01-03-2022 08:20-0500 Heart rate 67 /min [facility]; [facility] Work Phone: Comment on above: Pattern: Regular 01-03-2022 08:20-0500 Respiratory rate 16 /min Marshall Rosenthal [facility] Comprehensiv e Internal Medicine; [facility] Work Phone: Comment on above: Pattern: Unlabored 01-03-2022 08:20-0500 SaO2% (BldA) [Mass fraction] 99 % Marshall Rosenthal [facility]; [facility] Work Phone: Comment on above: Room air 01-03-2022 08:20-0500 Systolic blood pressure 160 mm[Hg] Marshall Rosenthal [facility]; [facility] Work Phone: Comment on above: Patient Position: Sitting; Cuff Location : Left Arm; Cuff Size: Standard 09-27-2021 08:03-0400 Body height 175.26 cm Angelica [facility]; [facility] Work Phone: 09-27-2021 08:03-0400 Body mass index (BMI) [Ratio] 32.21 kg/m2 [facility]; [facility] Work Phone: 09-27-2021 08:03-0400 Body surface area Derived from formula 2.14 m2 [facility]; [facility] Work Phone: 09-27-2021 08:03-0400 Body temperature 97.3 [degF] Angelica Meneses CMA Comprehensiv e Internal [facility]; [facility] Work Phone: Comment on above: Method: Infrared 09-27-2021 08:03-0400 Body weight 98.94 kg Angelica Meneses CMA [facility]; [facility] Work Phone: 09-27-2021 08:03-0400 Diastolic blood pressure 100 mm[Hg] Angelica Meneses CMA [facility]; [facility] Work Phone: Comment on above: Patient Position: Sitting; Cuff Location : Left Arm; Cuff Size: Standard 09-27-2021 08:03-0400 Heart rate 68 /min Angelica Meneses [facility]; [facility] Work Phone: Comment on above: Pattern: Regular 09-27-2021 08:03-0400 Respiratory rate 16 /min Angelica Meneses [facility] Comprehensiv e Internal Medicine; [facility] Work Phone: Comment on above: Pattern: Unlabored 09-27-2021 08:03-0400 SaO2% (BldA) [Mass fraction] 97 % Angelica Meneses [facility]; [facility] Work Phone: Comment on above: Room air 09-27-2021 08:03-0400 Systolic blood pressure 150 mm[Hg] Angelica Meneses [facility]; [facility] Work Phone: Comment on above: Patient Position: Sitting; Cuff Location : Left Arm; Cuff Size: Standard 05-24-2021 11:29-0400 Body height 175.26 cm Angelica Meneses [facility]; [facility] Work Phone: 05-24-2021 11:29-0400 Body mass index (BMI) [Ratio] 32.8 kg/m2 Angelica Meneses [facility]; [facility] Work Phone: 05-24-2021 11:29-0400 Body surface area Derived from formula 2.16 m2 Angelica Meneses [facility]; [facility] Work [...] 11:29-0400 Heart rate 79 /min Angelica Meneses [facility]; [facility] Work Phone: Comment on above: Pattern: Regular 05-24-2021 11:29-0400 Respiratory rate 18 /min Angelica Meneses CMA Comprehensiv e Internal [facility]; [facility] Work Phone: Comment on above: Pattern: Unlabored 05-24-2021 11:29-0400 SaO2% (BldA) [Mass fraction] 98 % Angelica Meneses [facility]; [facility] Work Phone: Comment on above: Room air 05-24-2021 11:29-0400 Systolic blood pressure 132 mm[Hg] Angelica Meneses [facility]; [facility] Work Phone: Comment on above: Patient Position: Sitting; Cuff Location : Left Arm; Cuff Size: Standard 02-01-2021 09:47-0500 Body height 175.26 cm Tamar Keane LPN [facility]; [facility] Work Phone: 02-01-2021 09:47-0500 Body mass index (BMI) [Ratio] 30.88 kg/m2 Tamar Keane [facility]; [facility] Work Phone: 02-01-2021 09:47-0500 Body surface area Derived from formula 2.11 m2 Tamar Keane [employer] [facility] Medicine; [facility] Work [...] 08:25-0400 Body height 175.26 cm Angelica Meneses [facility]; [facility] Work Phone: 10-26-2020 08:25-0400 Body mass index (BMI) [Ratio] 31.34 kg/m2 Angelica Meneses [facility]; [facility] Work Phone: 10-26-2020 08:25-0400 Body surface area Derived from formula 2.12 m2 Angelica Meneses [facility]; [facility] Work Phone: 10-26-2020 08:25-0400 Body temperature 97.1 [degF] Angelica Meneses [facility] Comprehensiv e Internal Medicine; [facility] Work Phone: Comment on above: Method: Infrared 10-26-2020 08:25-0400 Body weight 96.28 kg Angelica Meneses [facility]; [facility] Work Phone: 10-26-2020 08:25-0400 Diastolic blood pressure 84 mm[Hg] Angelica Meneses [facility]; [facility] Work Phone: Comment on above: Patient Position: Sitting; Cuff Location : Left Arm; Cuff Size: Standard 10-26-2020 08:25-0400 Heart rate 66 /min Angelica Meneses [facility]; [facility] Work Phone: Comment on above: Pattern: Regular 10-26-2020 08:25-0400 Respiratory rate 16 /min Angelica Meneses [facility] Comprehens[facility] e Internal Medicine; [facility] Work Phone: Comment on above: Pattern: Unlabored 10-26-2020 08:25-0400 SaO2% (BldA) [Mass fraction] 97 % Angelica Meneses [facility]; [facility] Work Phone: Comment on above: Room air 10-26-2020 08:25-0400 Systolic blood pressure 121 mm[Hg] Angelica Meneses [facility]; [facility] Work Phone: Comment on above: Patient Position: Sitting; Cuff Location : Left Arm; Cuff Size: Standard 07-20-2020 09:44-0400 Body height 175.26 cm [facility]; [facility] Work Phone: 07-20-2020 09:44-0400 Body mass index (BMI) [Ratio] 35.04 kg/m2 [facility]; [facility] Work Phone: 07-20-2020 09:44-0400 Body mass index (BMI) [Ratio] 33.12 kg/m2 Nancy Hannah [facility]; [facility] Work Phone: 07-20-2020 09:44-0400 Body surface area Derived from formula 2.22 m2 [facility]; [facility] Work Phone: 07-20-2020 09:44-0400 Body surface area Derived from formula 2.17 m2 Nancy Young [facility]; [facility] Work Phone: 07-20-2020 09:44-0400 Body temperature 97.1 [degF] Nancy Young [facility]; [facility] Work Phone: Comment on above: Method: Thermal Scan 07-20-2020 09:44-0400 Body weight 107.62 kg [facility]; [facility] Work Phone: 07-20-2020 09:44-0400 Body weight 101.72 kg Nancy Young [facility]; [facility] Work Phone: 07-20-2020 09:44-0400 Diastolic blood pressure 74 mm[Hg] Nancy Young [facility]; [facility] Work Phone: Comment on above: Patient Position: Sitting; Cuff Location : Left Arm; Cuff Size: Standard 07-20-2020 09:44-0400 Heart rate 80 /min Nancy Young [facility]; [facility] Work Phone: Comment on above: Pattern: Regular 07-20-2020 09:44-0400 Respiratory rate 16 /min Nancy Young [facility]; [facility] Work Phone: Comment on above: Pattern: Unlabored 07-20-2020 09:44-0400 Systolic blood pressure 130 mm[Hg] Nancy Young [facility]; [facility] Work Phone: Comment on above: Patient Position: Sitting; Cuff Location : Left Arm; Cuff Size: Standard 04-13-2020 08:02-0500 BMI (Body Mass Index) 35.04 kg/m2 [facility]; [facility] Work Phone: Comment on above: Recheck BP 132/80-[facility] 04-13-2020 08:02-0500 Body Temperature 96.4 [degF] [facility]; [facility] Work Phone: Comment on above: Method: Infrared [facility] 08:02-0500 Body weight 107.62 kg [facility]; [facility] Work Phone: Comment on above: [facility] 08:02-0500 BP Diastolic 92 mm[Hg] [facility]; [facility] Work Phone: Comment on above: Patient Position: Sitting; Cuff Location : Left Arm; Cuff Size: Standard Recheck BP 132/80-[facility] 04-13-2020 08:02-0500 BP Systolic 141 mm[Hg] [facility]; [facility] Work Phone: Comment on above: Patient Position: Sitting; Cuff Location : Left Arm; Cuff Size: Standard Recheck BP 132/80-AC [facility] 04-13-2020 08:02-0500 BSA (Body Surface Area) 2.22 m2 [facility]; [facility] Work Phone: Comment on above: [facility] 04-[facility]-2020 08:02-0500 Height 175.26 cm [facility]; [facility] Work Phone: Comment on above: [facility] 04-13-2020 08:02-0500 Pulse (Heart Rate) 78 /min [facility] Com[facility]; [facility] Work Phone: Comment on above: Pattern: Regular [facility] 04-13-2020 08:02-0500 Pulse Oximetry 97 % Marva Wang [facility]; [facility] Work Phone: Comment on above: Room air Recheck BP 132/80-AC [facility] 04-13-2020 08:02-0500 Respiratory Rate 16 /min [facility]; [facility] Work Phone: Comment on above: Pattern: Unlabored Recheck BP 132/80-AC [facility]N 04-13-2020 08:02-0500 SaO2% (BldA) [Mass fraction] 97 % [facility]; [facility] Work Phone: Comment on above: Room air Recheck BP 132/80-AC faustinoLPN 11-25-2019 08:23-0400 BMI (Body Mass Index) 32.82 kg/m2 Angelica Meneses [facility] Work Phone: 11-25-2019 08:23-0400 Body Temperature 96.8 [degF] Angelica Meneses [facility] Com[facility] Work Phone: Comment on above: Method: Infrared 11-25-2019 08:23-0400 Body weight 100.81 kg Angelica Meneses [facility] Work Phone: 11-25-2019 08:23-0400 BP Diastolic 90 mm[Hg] Angelica Meneses [facility] Work Phone: Comment on above: Patient Position: Sitting; Cuff Location : Left Arm; Cuff Size: Standard 11-25-2019 08:23-0400 BP Systolic 127 mm[Hg] Angelica Meneses [facility] Work Phone: Comment on above: Patient Position: Sitting; Cuff Location : Left Arm; Cuff Size: Standard 11-25-2019 08:23-0400 BSA (Body Surface Area) 2.16 m2 Angelica Meneses [facility] Work Phone: 11-25-2019 08:23-0400 Height 175.26 cm Angelica Meneses [facility] Work Phone: 11-25-2019 08:23-0400 Pulse (Heart Rate) 78 /min Angelica Meneses [facility] Comprehens tyron [facility] Medicine Work Phone: Comment on above: Pattern: Regular 11-25-2019 08:23-0400 Pulse Oximetry 95 % Marva Wang [facility] Work Phone: Comment on above: Room air 11-25-2019 08:23-0400 Respiratory Rate 18 /min Angelica Meneses CMA Com[facility] Work Phone: Comment on above: Pattern: Unlabored 11-25-2019 08:23-0400 SaO2% (BldA) [Mass fraction] 95 % Angelica Meneses [facility]; [facility] Work Phone: Comment on above: Room air 07-22-2019 13:39-0400 BMI (Body Mass Index) 34.3 kg/m2 Angelica Meneses [facility] Work Phone: 07-22-2019 13:39-0400 Body Temperature 96.8 [degF] Angelica Meneses CMA [facility] Work Phone: Comment on above: Method: Temporal 07-22-2019 13:39-0400 Body weight 105.35 kg Angelica Meneses [facility] Work Phone: 07-22-2019 13:39-0400 BP Diastolic 84 mm[Hg] Angelica Meneses [facility] Work Phone: Comment on above: Patient Position: Sitting; Cuff Location : Left Arm; Cuff Size: Standard 07-22-2019 13:39-0400 BP Systolic 122 mm[Hg] Angelica Meneses [facility] Work Phone: Comment on above: Patient Position: Sitting; Cuff Location : Left Arm; Cuff Size: Standard 07-22-2019 13:39-0400 BSA (Body Surface Area) 2.2 m2 Angelica Meneses [facility] Work Phone: 07-22-2019 13:39-0400 Height 175.26 cm Angelica Meneses 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 [facility] Work Phone: 07-22-2019 13:39-0400 Pulse (Heart Rate) 96 /min Angelica Meneses 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 Comprehens tyron Internal Medicine Work Phone: Comment on above: Pattern: Regular 07-22-2019 13:39-0400 Pulse Oximetry 97 % Marva Wang [facility] Work Phone: Comment on above: Room air 07-22-2019 13:39-0400 Respiratory Rate 16 /min Angelica Meneses CMA Com[facility] Work Phone: Comment on above: Pattern: Unlabored 07-22-2019 13:39-0400 SaO2% (BldA) [Mass fraction] 97 % Angelica Meneses 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 [facility]; [facility] Work Phone: Comment on above: Room air 02-04-2019 08:21-0500 BMI (Body Mass Index) 34.15 kg/m2 Angelica Meneses CMA [facility] Work Phone: 02-04-2019 08:21-0500 Body Temperature 96.7 [degF] Angelica Meneses CMA [facility] Work Phone: Comment on above: Method: Temporal 02-04-2019 08:21-0500 Body weight 104.89 kg Angelica Meneses 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 [facility] Work Phone: 02-04-2019 08:21-0500 BP Diastolic 82 mm[Hg] Angelica Meneses CMA [facility] Work Phone: Comment on above: Patient Position: Sitting; Cuff Location : Left Arm; Cuff Size: Standard 02-04-2019 08:21-0500 BP Systolic 126 mm[Hg] Angelica Meneses CMA [facility] Work Phone: Comment on above: Patient Position: Sitting; Cuff Location : Left Arm; Cuff Size: Standard 02-04-2019 08:21-0500 BSA (Body Surface Area) 2.2 m2 Angelica Meneses 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 [facility] Work Phone: 02-04-2019 08:21-0500 Height 175.26 cm Angelica Meneses CMA [facility] Work Phone: 02-04-2019 08:21-0500 Pulse (Heart Rate) 74 /min Angelica Gravius 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 Comprehens tyron Internal Medicine Work Phone: Comment on above: Pattern: Regular 02-04-2019 08:21-0500 Pulse Oximetry 97 % Marva Wang [facility] Work Phone: Comment on above: Room air 02-04-2019 08:21-0500 Respiratory Rate 16 /min Angelica Meneses 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 Com[facility] e [facility] Medicine Work Phone: Comment on above: Pattern: Unlabored 02-04-2019 08:21-0500 SaO2% (BldA) [Mass fraction] 97 % Angelica Meneses 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 [facility]; [facility] Work Phone: Comment on above: Room air 10-29-2018 08:24-0400 BMI (Body Mass Index) 33.85 kg/m2 Kim Slarb [employer] [facility] Work Phone: 10-29-2018 08:24-0400 Body weight 103.99 kg Kim Slarb [employer] [facility] Work Phone: 10-29-2018 08:24-0400 BP Diastolic 90 mm[Hg] Kim Slarb [employer] [facility] Work Phone: Comment on above: Patient Position: Sitting; Cuff Location : Left Arm; Cuff Size: Standard 10-29-2018 08:24-0400 BP Systolic 138 mm[Hg] Kim Slarb [employer] [facility] Work Phone: Comment on above: Patient Position: Sitting; Cuff Location : Left Arm; Cuff Size: Standard 10-29-2018 08:24-0400 BSA (Body Surface Area) 2.19 m2 Kim Slarb [employer] [facility] Work Phone: 10-29-2018 08:24-0400 Height 175.26 cm Kim Slarb [employer] [facility] Work Phone: 10-29-2018 08:24-0400 Pulse (Heart Rate) 68 /min Kim Slarb [employer] Comprehensiv e [facility] Medicine Work Phone: Comment on above: Pattern: Regular 10-29-2018 08:24-0400 Pulse Oximetry 98 % Marva Kathleen [facility] Work Phone: Comment on above: Room air 10-29-2018 08:24-0400 SaO2% (BldA) [Mass fraction] 98 % Kim Ordonez LPN [facility]; [...] BMI (Body Mass Index) 30.44 kg/m2 Marva Geronimoon [facility] Work Phone: 03-19-2018 08:01-0500 BMI (Body Mass Index) 32.65 kg/m2 Marva Kathleen DO Work Phone: [facility] Work Phone: 03-19-2018 08:01-0500 Body Temperature 97.5 [degF] Marva Kathleen DO Work Phone: [facility] Work Phone: Comment on above: Method: Temporal 03-19-2018 08:01-0500 Body weight 100.3 kg Marva Kathleen DO Work Phone: [facility] [...] 08:01-0500 Pulse (Heart Rate) 75 /min Marva Wang DO Work Phone: [facility] Work Phone: Comment on above: Pattern: Regular 03-19-2018 08:01-0500 Pulse Oximetry 95 % Marva Wang [facility] Work Phone: Comment on above: Room air 03-19-2018 08:01-0500 Respiratory Rate 18 /min Marva Wang DO Work Phone: [facility] Work Phone: Comment on above: Pattern: Unlabored 03-19-2018 08:01-0500 SaO2% (BldA) [Mass fraction] 95 % Marva Wang DO Work Phone: [facility] [...] 11-13-2017 08:55-0400 BP Systolic 120 mm[Hg] Nita Cloeman RN [facility] Work Phone: Comment [...] 08:55-0400 Pulse Oximetry 98 % Marva Wang [facility] Internal Medicine Work Phone: Comment on [...] 08-07-2017 08:54-0400 Pulse Oximetry 97 % Marva Kathleen [facility] Medicine Work Phone: Comment on above: Room air 08-07-2017 08:54-0400 Respiratory Rate 18 /min Nita Coleman RN Comprehensiv [facility] Work Phone: Comment on above: Pattern: Unlabored 08-07-2017 08:54-0400 SaO2% (BldA) [Mass fraction] 97 % Nita Coleman RN [facility]; [facility] Work Phone: Comment on above: Room air 08-07-2017 08:54-0400 Weight 96.67 kg Marva Kathleen [facility] Medicine Work Phone: 05-01-2017 08:18-0500 BMI (Body Mass Index) 33.43 kg/m2 Cheri Clancy [facility] Medicine Work Phone: 05-01-2017 08:18-0500 Body Temperature 98 [degF] Cheri Clancy [facility] Work Phone: 05-01-2017 08:18-0500 Body weight 102.68 kg Cheri Clancy [facility] Work Phone: 05-01-2017 08:18-0500 BP Diastolic 80 mm[Hg] Cheri [facility] Work Phone: Comment on above: Patient Position: Sitting; Cuff Location : Left Arm; Cuff Size: Standard 05-01-2017 08:18-0500 BP Systolic 118 mm[Hg] Cheri Clancy [facility] Internal Medicine Work Phone: Comment on above: Patient Position: Sitting; Cuff Location : Left Arm; Cuff Size: Standard 05-01-2017 08:18-0500 BSA (Body Surface Area) 2.18 m2 Cheri Clancy [facility] Medicine Work Phone: 05-01-2017 08:18-0500 Height 175.26 cm Cheri Aston [facility] Work Phone: 05-01-2017 08:18-0500 Pulse (Heart Rate) 95 /min Cheri Clancy [facility] Work Phone: Comment on above: Pattern: Regular 05-01-2017 08:18-0500 Pulse Oximetry 95 % Marva Wang [facility] Work Phone: Comment on above: Room air 05-01-2017 08:18-0500 Respiratory Rate 18 /min Cheri Clancy [facility] Work Phone: Comment on above: Pattern: Unlabored 05-01-2017 08:18-0500 SaO2% (BldA) [Mass fraction] 95 %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 07-22-2019 TSH Qn TSH (THYROID STIMULATING HORMONE) (33686) [facility] Work Phone: Start: 07-22-2019 Urine albumin quantitative MICROALBUMIN: CREATININE RATIO (27521) AND (56149) [facility] Work Phone: Start: 07-22-2019 Comprehensive metabo lic panel METABOLIC PANEL, COMPREHENSIVE (12881) [facility] Work Phone: Start: 07-22-2019 Blood count complete auto&auto difrntl wbc CBC with auto diff (96619) [facility] Work Phone: Start: 07-22-2019 Lipoprotein blood qu an numbers & subclasses NMR Profile (88353) [facility] Work Phone: Start: 07-22-2019 Procedure Education Com prehensive [facility] Work Phone: Start: 07-22-2019 Provider Instruction s for Treatment [facility] Work Phone: Start: 06-01-2019 HbA1c (Bld) [Mass fraction] HGB A1C (42067) [facility] Work Phone: Start: 06-01-2019 [...] Work Phone: Start: 10-29-2018 TSH Qn TSH (94186) Comprehens [facility] Work Phone: Start: 07-23-2018 Provider Instruction s for Treatment [facility] Work Phone: Start: 07-23-2018 Assay of prostate specific antigen total PSA (PROSTATE SPECIFIC ANTIGEN) (V76.44) [facility] Work Phone: Comment on above: assure one yr from l ast one Start: 07-23-2018 25 hydroxy includes fractions if performed CALCIFIDIOL (00501) VIT D 25 [facility] Work Phone: Start: 07-23-2018 Thyrotropin Qn TSH (38282) Comprehe nsive Internal Medicine Work Phone: Start: 07-23-2018 Urnls dip stick/tabl et reagent auto microscopy URINALYSIS, W/ MICRO (90147) [facility] Work Phone: Start: 07-23-2018 Urine albumin quantitative MICROALBUMIN: CREATININE RATIO (19576) AND (09439) [facility] Work Phone: Start: 07-23-2018 Comprehensive metabo lic panel METABOLIC PANEL, COMPREHENSIVE (80873) [facility] Work Phone: Start: 07-23-2018 Blood count complete auto&auto difrntl wbc CBC W/AUTO DIFF WBC (85896) [facility] Work Phone: Start: 07-23-2018 Lipoprotein blood qu an numbers & subclasses NMR Profile (44862) [facility] Work Phone: Start: 07-23-2018 [...] Protein mass conc LIPOPROTEIN, BLD, BY NMR (19708) [facility] Work Phone: Start: 03-19-2018 Assay of thyroid stimulating hormone tsh [facility]; [facility] Work Phone: Start: 03-19-2018 Thyrotropin Qn TSH (85824) Comprehe nsive Internal Medicine Work Phone: Start: [...] mass conc Blood Glucos e , Office (99801) [facility] Work Phone: Start: 11-13-2017 [...] mass conc Blood Glucos e , Office (74798) [facility] Work Phone: Start: 09-28-2015 [...] 02-10-2010 CRP mass conc C-REACTIVE PRO TEIN (10491) [facility] Work Phone: Start: 02-10-2010 Rheumatoid factor quantitative [facility] Work Phone: Start: 02-10-2010 Sedimentation rate r bc non-automated [facility] Work Phone: Start: 02-10-2010 Thyrotropin Qn TSH (87874) [facility] ns[facility] Work Phone: Start: 02-10-2010 Antinuclear antibodi es gavin [facility]; [facility] Work Phone: Start: 02-10-2010 Blood count manual c ell count each [facility] Work Phone: Start: 02-10-2010 Comprehensive metabo lic panel [facility] Work Phone: Start: 02-10-2010 Nuclear Ab IF titer (S) GAVIN (A NTINUCLEAR ANTIBODY) (53241) [facility] Work Phone: [facility] I [...] Immunizations Immunization Date Immunization Notes Care Provider Fa cili 02-26-2020 COVID-Moderna (100 MCG/0.5 ML) Marva Wang DO Work Phone: [facility]; [facility] Work Phone: Payers Date Payer Category Payer Unknown [id number] 2021 Unknown [id number] 2008 Unknown [id number] 1967 Unknown [id number] Unknown Social History Date Type Detail Facility Caffeine Use [facility] Work Phone: Comment on above: qd Exercise History: Does not exercise. [facility] Work Phone: Living Situation: Lives with spouse. [facility] Internal Medicine Work Phone: Number of Child (age 0-17) Dependents: 5. [facility] Work Phone: Pets/Animals: Dog. [facility] Work Phone: Exercise History: Exercise History: [facility] Internal Medicine; [facility] Internal Medicine Work Phone: Living Situation: Living Situation: [facility] Internal [facility]; [facility] Internal Medicine Work Phone: Number of Child (age 0-17) Dependents: Number of Child (age 0-17) Dependents: [facility]; [facility] Work Phone: Pets/Animals: Pets/Animals: [facility]; [facility] Work Phone: Functional Status Date Assessment Result Facility 07-06-2020 [facility]; [facility] Internal Medicine Work Phone: Comment on [...] component of a physician's clinical assessment. Test(s) 902629-SHE-C ; 122240-XGU-R; 604829-Wbgxyqblkfmhp; 442457-Llhmivzxqjd, Total; 643876-RRR-L (Total); 248975-Aebhd LDL-P; 908242-URX Size; 133781-NZ-BR Scorewas developed and its performance characteristics determinedby [employer]. It has not been cleared or approved by the Foodand Drug Administration.PATIENT WAS FASTINGPERFORMED BY: [employer] [id number] BY: [facility] [facility] [id number] 11-11-2019 LP-IR Score 64 [facility] Work Phone: Comment on above: INSULIN [...] component of a physician's clinical assessment. Test(s) 729868-MXT-X ; 200625-IJJ-K; 397034-Scumqwuzbyrxp; 952345-Xedjszppjmu, Total; 328148-YJY-R (Total); 743789-Exdxo LDL-P; 413530-DGQ Size; 943722-AF-GF Scorewas developed and its performance characteristics determinedby [employer]. It has not been cleared or approved by the Foodand Drug Administration.PATIENT WAS FASTINGPERFORMED BY: Bandwdth PublishingCarlos [place] [address] [facility] [id number] BY: Bandwd[employer] PublishingWinslow Indian Health Care CenterBasujj7[address] [facility] [id number] 06-24-2019 LP-IR Score 76 [facility] Work Phone: Comment on above: INSULIN RESISTANCE M KAVINKER <--Insulin Sensitive Insulin Resistant--> Percentile in Reference PopulationInsulin Resistance ScoreLP-IR Score Low 25th 50th 75th High <27 27 45 63 >63LP-IR Score is inaccurate if patient is non-fasting. .The LP-IR score is a laboratory developed index that has beenassociated with insulin resistance and diabetes risk and should beused as one component of a physician's clinical assessment. Test(s) 757734-NXS-F ; 979632-TVB-B; 084683-WLG-H; 823914-Avbdrmraznbzr; 197682-Fyekklusctp, Total; 995154-PCW-E (Total);493744-Nklxj LDL-P; 036149-OGF Size; 444174-ZC-HZ Scorewas developed and its performance characteristics determinedby [employer]. It has not been cleared or approved by the Foodand Drug Administration.PATIENT WAS FASTINGPERFORMED BY: [employer] [id number] BY: [facility] [facility] [id number] 10-23-2018 LP-IR Score 76 [facility] Work Phone: Comment on above: INSULIN [...] andDrug Administration. PATIENT WAS FASTINGP ERFORMED BY: [employer] PublishingCarl[place] [address] [facility] [id number] BY: Bandwdth PublishingGreystone Park Psychiatric HospitalLwjyut59[address] [facility] [id number] Clinical Notes Note Date & Type Note Facility Instructions Name Patient Instructions Indication:Nonsmoker Start:13-Apr-19 Instruction Type:Provider Instructions for Treatment How to Access Health Information Online using Patient Portal and [employer] Apps Indication:Nonsmoker Start:13-Apr-19 Instruction Type:Patient Education How [...] Informa tion Online using Patient Portal and [employer] Apps Indication:Nonsmoker Start:20-Jul-2020 Instruction Type:Patient Education Patient Instructions Indication:Nonsmoker Start:20-Jul-2020 Instruction Type:Provider Instructions for Treatment Patient Instructions Indication:Nonsmoker Start:13-Apr-2020 Instruction Type:Provider Instructions for Treatment How to Access Health Informa tion Online using Patient Portal and [employer] Apps Indication:Nonsmoker Start:13-Apr-2020 Instruction Type:Patient Education How [...] Informa tion Online using Patient Portal and [employer] Apps Indication:Nonsmoker Start:20-Jul-2020 Instruction Type:Patient Education Patient Instructions Indication:Nonsmoker Start:20-Jul-2020 Instruction Type:Provider Instructions for Treatment Patient Instructions Indication:Nonsmoker Start:13-Apr-2020 Instruction Type:Provider Instructions for Treatment How to Access Health Informa tion Online using Patient Portal and [employer] Apps Indication:Nonsmoker Start:13-Apr-2020 Instruction Type:Patient Education How [...] Informa tion Online using Patient Portal and [employer] Apps Indication:Diabetes mellitus type II, controlled, with no complications (Renamed from Controlled type 2 diabetes mellitus without complication) Start:01-Feb-2021 Instruction Type:Patient Education Patient Instructions Indication:BMI 30.0-30.9,adult Start:26-Oct-2020 Instruction Type:Provider Instructions for Treatment How to Access Health Informa tion Online using Patient Portal and [employer] Apps Indication:BMI 30.0-30.9,adult Start:26-Oct-2020 Instruction Type:Patient Education How to Access Health Informa tion Online using Patient Portal and [employer] Apps Indication:Nonsmoker Start:20-Jul-2020 Instruction Type:Patient Education Patient Instructions Indication:Nonsmoker Start:20-Jul-2020 Instruction Type:Provider Instructions for Treatment Patient Instructions Indication:Nonsmoker Start:13-Apr-2020 Instruction Type:Provider Instructions for Treatment How to Access Health Informa tion Online using Patient Portal and [employer] Apps Indication:Nonsmoker Start:13-Apr-2020 Instruction Type:Patient Education How [...] tion Online using Patient Portal and [employer] Apps Indication:Diabetes mellitus type II, controlled, with no complications (Renamed from Controlled type 2 diabetes mellitus without complication) Start:01-Feb-2021 Instruction Type:Patient Education Patient Instructions Indication:BMI 30.0-30.9,adult Start:26-Oct-2020 Instruction Type:Provider Instructions for Treatment How to Access Health Informa tion Online using Patient Portal and [employer] Apps Indication:BMI 30.0-30.9,adult Start:26-Oct-2020 Instruction Type:Patient Education How to Access Health Informa tion Online using Patient Portal and [employer] Apps Indication:Nonsmoker Start:20-Jul-2020 Instruction Type:Patient Education Patient Instructions Indication:Nonsmoker Start:20-Jul-2020 Instruction Type:Provider Instructions for Treatment Patient Instructions Indication:Nonsmoker Start:13-Apr-2020 Instruction Type:Provider Instructions for Treatment How to Access Health Informa tion Online using Patient Portal and [employer] Apps Indication:Nonsmoker Start:13-Apr-2020 Instruction Type:Patient Education How [...] tion Online using Patient Portal and [employer] Apps Indication:Nonsmoker Start:24-May-2021 Instruction Type:Patient Education Patient Instructions Indication:Diabetes mellitus type II, controlled, with no complications (Renamed from Controlled type 2 diabetes mellitus without complication) Start:01-Feb-2021 Instruction Type:Provider Instructions for Treatment How to Access Health Informa tion Online using Patient Portal and [employer] Apps Indication:Diabetes mellitus type II, controlled, with no complications (Renamed from Controlled type 2 diabetes mellitus without complication) Start:01-Feb-2021 Instruction Type:Patient Education Patient Instructions Indication:BMI 30.0-30.9,adult Start:26-Oct-2020 Instruction Type:Provider Instructions for Treatment How to Access Health Informa tion Online using Patient Portal and [employer] Apps Indication:BMI 30.0-30.9,adult Start:26-Oct-2020 Instruction Type:Patient Education How to Access Health Informa tion Online using Patient Portal and [employer] Apps Indication:Nonsmoker Start:20-Jul-2020 Instruction Type:Patient Education Patient Instructions Indication:Nonsmoker Start:20-Jul-2020 Instruction Type:Provider Instructions for Treatment Patient Instructions Indication:Nonsmoker Start:13-Apr-2020 Instruction Type:Provider Instructions for Treatment How to Access Health Informa tion Online using Patient Portal and [employer] Apps Indication:Nonsmoker Start:13-Apr-2020 Instruction Type:Patient Education How [...] tion Online using Patient Portal and [employer] Apps Indication:Type II diabetes mellitus, well controlled Start:27-Sep-2021 Instruction Type:Patient Education Patient Instructions Indication:Nonsmoker Start:24-May-2021 Instruction Type:Provider Instructions for Treatment How to Access Health Informa tion Online using Patient Portal and [employer] Apps Indication:Nonsmoker Start:24-May-2021 Instruction Type:Patient Education Patient Instructions Indication:Diabetes mellitus type II, controlled, with no complications (Renamed from Controlled type 2 diabetes mellitus without complication) Start:01-Feb-2021 Instruction Type:Provider Instructions for Treatment How to Access Health Informa tion Online using Patient Portal and [employer] Apps Indication:Diabetes mellitus type II, controlled, with no complications (Renamed from Controlled type 2 diabetes mellitus without complication) Start:01-Feb-2021 Instruction Type:Patient Education Patient Instructions Indication:BMI 30.0-30.9,adult Start:26-Oct-2020 Instruction Type:Provider Instructions for Treatment How to Access Health Informa tion Online using Patient Portal and [employer] Apps Indication:BMI 30.0-30.9,adult Start:26-Oct-2020 Instruction Type:Patient Education How to Access Health Informa tion Online using Patient Portal and [employer] Apps Indication:Nonsmoker Start:20-Jul-2020 Instruction Type:Patient Education Patient Instructions Indication:Nonsmoker Start:20-Jul-2020 Instruction Type:Provider Instructions for Treatment Patient Instructions Indication:Nonsmoker Start:13-Apr-2020 Instruction Type:Provider Instructions for Treatment How to Access Health Informa tion Online using Patient Portal and [employer] Apps Indication:Nonsmoker Start:13-Apr-2020 Instruction Type:Patient Education How [...] Informa tion Online using Patient Portal and [employer] Apps Indication:Type II diabetes mellitus, well controlled Start:27-Sep-2021 Instruction Type:Patient Education Patient Instructions Indication:Nonsmoker Start:24-May-2021 Instruction Type:Provider Instructions for Treatment How to Access Health Informa tion Online using Patient Portal and [employer] Apps Indication:Nonsmoker Start:24-May-2021 Instruction Type:Patient Education Patient Instructions Indication:Diabetes mellitus type II, controlled, with no complications (Renamed from Controlled type 2 diabetes mellitus without complication) Start:01-Feb-2021 Instruction Type:Provider Instructions for Treatment How to Access Health Informa tion Online using Patient Portal and [employer] Apps Indication:Diabetes mellitus type II, controlled, with no complications (Renamed from Controlled type 2 diabetes mellitus without complication) Start:01-Feb-2021 Instruction Type:Patient Education Patient Instructions Indication:BMI 30.0-30.9,adult Start:26-Oct-2020 Instruction Type:Provider Instructions for Treatment How to Access Health Informa tion Online using Patient Portal and [employer] Apps Indication:BMI 30.0-30.9,adult Start:26-Oct-2020 Instruction Type:Patient Education How to Access Health Informa tion Online using Patient Portal and [employer] Apps Indication:Nonsmoker Start:20-Jul-2020 Instruction Type:Patient Education Patient Instructions Indication:Nonsmoker Start:20-Jul-2020 Instruction Type:Provider Instructions for Treatment Patient Instructions Indication:Nonsmoker Start:13-Apr-2020 Instruction Type:Provider Instructions for Treatment How to Access Health Informa tion Online using Patient Portal and [employer] Apps Indication:Nonsmoker Start:13-Apr-2020 Instruction Type:Patient Education How [...] tion Online using Patient Portal and [employer] Apps Indication:BMI 33.0-33.9,adult Start:03-Jan-2022 Instruction Type:Patient Education Patient Instructions Indication:Type II diabetes mellitus, well controlled Start:27-Sep-2021 Instruction Type:Provider Instructions for Treatment How to Access Health Informa tion Online using Patient Portal and [employer] Apps Indication:Type II diabetes mellitus, well controlled Start:27-Sep-2021 Instruction Type:Patient Education Patient Instructions Indication:Nonsmoker Start:24-May-2021 Instruction Type:Provider Instructions for Treatment How to Access Health Informa tion Online using Patient Portal and [employer] Apps Indication:Nonsmoker Start:24-May-2021 Instruction Type:Patient Education Patient Instructions Indication:Diabetes mellitus type II, controlled, with no complications (Renamed from Controlled type 2 diabetes mellitus without complication) Start:01-Feb-2021 Instruction Type:Provider Instructions for Treatment How to Access Health Informa tion Online using Patient Portal and [employer] Apps Indication:Diabetes mellitus type II, controlled, with no complications (Renamed from Controlled type 2 diabetes mellitus without complication) Start:01-Feb-2021 Instruction Type:Patient Education Patient Instructions Indication:BMI 30.0-30.9,adult Start:26-Oct-2020 Instruction Type:Provider Instructions for Treatment How to Access Health Informa tion Online using Patient Portal and [employer] Apps Indication:BMI 30.0-30.9,adult Start:26-Oct-2020 Instruction Type:Patient Education How to Access Health Informa tion Online using Patient Portal and [employer] Apps Indication:Nonsmoker Start:20-Jul-2020 Instruction Type:Patient Education Patient Instructions Indication:Nonsmoker Start:20-Jul-2020 Instruction Type:Provider Instructions for Treatment Patient Instructions Indication:Nonsmoker Start:13-Apr-2020 Instruction Type:Provider Instructions for Treatment How to Access Health Informa tion Online using Patient Portal and [employer] Apps Indication:Nonsmoker Start:13-Apr-2020 Instruction Type:Patient Education How [...] tion Online using Patient Portal and [employer] Apps Indication:BMI 33.0-33.9,adult Start:03-Jan-2022 Instruction Type:Patient Education Patient Instructions Indication:Type II diabetes mellitus, well controlled Start:27-Sep-2021 Instruction Type:Provider Instructions for Treatment How to Access Health Informa tion Online using Patient Portal and [employer] Apps Indication:Type II diabetes mellitus, well controlled Start:27-Sep-2021 Instruction Type:Patient Education Patient Instructions Indication:Nonsmoker Start:24-May-2021 Instruction Type:Provider Instructions for Treatment How to Access Health Informa tion Online using Patient Portal and [employer] Apps Indication:Nonsmoker Start:24-May-2021 Instruction Type:Patient Education Patient Instructions Indication:Diabetes mellitus type II, controlled, with no complications (Renamed from Controlled type 2 diabetes mellitus without complication) Start:01-Feb-2021 Instruction Type:Provider Instructions for Treatment How to Access Health Informa tion Online using Patient Portal and [employer] Apps Indication:Diabetes mellitus type II, controlled, with no complications (Renamed from Controlled type 2 diabetes mellitus without complication) Start:01-Feb-2021 Instruction Type:Patient Education Patient Instructions Indication:BMI 30.0-30.9,adult Start:26-Oct-2020 Instruction Type:Provider Instructions for Treatment How to Access Health Informa tion Online using Patient Portal and [employer] Apps Indication:BMI 30.0-30.9,adult Start:26-Oct-2020 Instruction Type:Patient Education How to Access Health Informa tion Online using Patient Portal and [employer] Apps Indication:Nonsmoker Start:20-Jul-2020 Instruction Type:Patient Education Patient Instructions Indication:Nonsmoker Start:20-Jul-2020 Instruction Type:Provider Instructions for Treatment Patient Instructions Indication:Nonsmoker Start:13-Apr-2020 Instruction Type:Provider Instructions for Treatment How to Access Health Informa tion Online using Patient Portal and [employer] Apps Indication:Nonsmoker Start:13-Apr-2020 Instruction Type:Patient Education How [...] tion Online using Patient Portal and [employer] Apps Indication:BMI 33.0-33.9,adult Start:03-Jan-2022 Instruction Type:Patient Education Patient Instructions Indication:Type II diabetes mellitus, well controlled Start:27-Sep-2021 Instruction Type:Provider Instructions for Treatment How to Access Health Informa tion Online using Patient Portal and [employer] Apps Indication:Type II diabetes mellitus, well controlled Start:27-Sep-2021 Instruction Type:Patient Education Patient Instructions Indication:Nonsmoker Start:24-May-2021 Instruction Type:Provider Instructions for Treatment How to Access Health Informa tion Online using Patient Portal and [employer] Apps Indication:Nonsmoker Start:24-May-2021 Instruction Type:Patient Education Patient Instructions Indication:Diabetes mellitus type II, controlled, with no complications (Renamed from Controlled type 2 diabetes mellitus without complication) Start:01-Feb-2021 Instruction Type:Provider Instructions for Treatment How to Access Health Informa tion Online using Patient Portal and [employer] Apps Indication:Diabetes mellitus type II, controlled, with no complications (Renamed from Controlled type 2 diabetes mellitus without complication) Start:01-Feb-2021 Instruction Type:Patient Education Patient Instructions Indication:BMI 30.0-30.9,adult Start:26-Oct-2020 Instruction Type:Provider Instructions for Treatment How to Access Health Informa tion Online using Patient Portal and [employer] Apps Indication:BMI 30.0-30.9,adult Start:26-Oct-2020 Instruction Type:Patient Education How to Access Health Informa tion Online using Patient Portal and [employer] Apps Indication:Nonsmoker Start:20-Jul-2020 Instruction Type:Patient Education Patient Instructions Indication:Nonsmoker Start:20-Jul-2020 Instruction Type:Provider Instructions for Treatment Patient Instructions Indication:Nonsmoker Start:13-Apr-2020 Instruction Type:Provider Instructions for Treatment How to Access Health Informa tion Online using Patient Portal and [employer] Apps Indication:Nonsmoker Start:13-Apr-2020 Instruction Type:Patient Education How [...] tion Online using Patient Portal and [employer] Apps Indication:BMI 34.0-34.9,adult Start:11-Apr-2022 Instruction Type:Patient Education Patient Instructions Indication:BMI 33.0-33.9,adult Start:03-Jan-2022 Instruction Type:Provider Instructions for Treatment How to Access Health Informa tion Online using Patient Portal and [employer] Apps Indication:BMI 33.0-33.9,adult Start:03-Jan-2022 Instruction Type:Patient Education Patient Instructions Indication:Type II diabetes mellitus, well controlled Start:27-Sep-2021 Instruction Type:Provider Instructions for Treatment How to Access Health Informa tion Online using Patient Portal and [employer] Apps Indication:Type II diabetes mellitus, well controlled Start:27-Sep-2021 Instruction Type:Patient Education Patient Instructions Indication:Nonsmoker Start:24-May-2021 Instruction Type:Provider Instructions for Treatment How to Access Health Informa tion Online using Patient Portal and [employer] Apps Indication:Nonsmoker Start:24-May-2021 Instruction Type:Patient Education Patient Instructions Indication:Diabetes mellitus type II, controlled, with no complications (Renamed from Controlled type 2 diabetes mellitus without complication) Start:01-Feb-2021 Instruction Type:Provider Instructions for Treatment How to Access Health Informa tion Online using Patient Portal and [employer] Apps Indication:Diabetes mellitus type II, controlled, with no complications (Renamed from Controlled type 2 diabetes mellitus without complication) Start:01-Feb-2021 Instruction Type:Patient Education Patient Instructions Indication:BMI 30.0-30.9,adult Start:26-Oct-2020 Instruction Type:Provider Instructions for Treatment How to Access Health Informa tion Online using Patient Portal and [employer] Apps Indication:BMI 30.0-30.9,adult Start:26-Oct-2020 Instruction Type:Patient Education How to Access Health Informa tion Online using Patient Portal and [employer] Apps Indication:Nonsmoker Start:20-Jul-2020 Instruction Type:Patient Education Patient Instructions Indication:Nonsmoker Start:20-Jul-2020 Instruction Type:Provider Instructions for Treatment Patient Instructions Indication:Nonsmoker Start:13-Apr-2020 Instruction Type:Provider Instructions for Treatment How to Access Health Informa tion Online using Patient Portal and [employer] Apps Indication:Nonsmoker Start:13-Apr-2020 Instruction Type:Patient Education How [...] tion Online using Patient Portal and 3rd [employer] Indication:BMI 34.0-34.9,adult Start:11-Apr-2022 Instruction Type:Patient Education Patient Instructions Indication:BMI 33.0-33.9,adult Start:03-Jan-2022 Instruction Type:Provider Instructions for Treatment How to Access Health Informa tion Online using Patient Portal and [employer]rd [employer] Indication:BMI 33.0-33.9,adult Start:03-Jan-2022 Instruction Type:Patient Education Patient Instructions Indication:Type II diabetes mellitus, well controlled Start:27-Sep-2021 Instruction Type:Provider Instructions for Treatment How to Access Health Informa tion Online using Patient Portal and [employer]rd [employer] Indication:Type II diabetes mellitus, well controlled Start:27-Sep-2021 Instruction Type:Patient Education Patient Instructions Indication:Nonsmoker Start:24-May-2021 Instruction Type:Provider Instructions for Treatment How to Access Health Informa tion Online using Patient Portal and [employer]rd [employer] Indication:Nonsmoker Start:24-May-2021 Instruction Type:Patient Education Patient Instructions Indication:Diabetes mellitus type II, controlled, with no complications (Renamed from Controlled type 2 diabetes mellitus without complication) Start:01-Feb-2021 Instruction Type:Provider Instructions for Treatment How to Access Health Informa tion Online using Patient Portal and [employer]rd [employer] Indication:Diabetes mellitus type II, controlled, with no complications (Renamed from Controlled type 2 diabetes mellitus without complication) Start:01-Feb-2021 Instruction Type:Patient Education Patient Instructions Indication:BMI 30.0-30.9,adult Start:26-Oct-2020 Instruction Type:Provider Instructions for Treatment How to Access Health Informa tion Online using Patient Portal and [employer]rd [employer] Indication:BMI 30.0-30.9,adult Start:26-Oct-2020 Instruction Type:Patient Education How to Access Health Informa tion Online using Patient Portal and [employer]rd [employer] Indication:Nonsmoker Start:20-Jul-2020 Instruction Type:Patient Education Patient Instructions Indication:Nonsmoker Start:20-Jul-2020 Instruction Type:Provider Instructions for Treatment Patient Instructions Indication:Nonsmoker Start:13-Apr-2020 Instruction Type:Provider Instructions for Treatment How to Access Health Informa tion Online using Patient Portal and [employer]rd [employer] Indication:Nonsmoker Start:13-Apr-2020 Instruction Type:Patient Education How [...] tion Online using Patient Portal and [employer]rd [employer] Indication:BMI 34.0-34.9,adult Start:11-Apr-2022 Instruction Type:Patient Education Patient Instructions Indication:BMI 33.0-33.9,adult Start:03-Jan-2022 Instruction Type:Provider Instructions for Treatment How to Access Health Informa tion Online using Patient Portal and [employer]rd [employer] Indication:BMI 33.0-33.9,adult Start:03-Jan-2022 Instruction Type:Patient Education Patient Instructions Indication:Type II diabetes mellitus, well controlled Start:27-Sep-2021 Instruction Type:Provider Instructions for Treatment How to Access Health Informa tion Online using Patient Portal and [employer]rd [employer] Indication:Type II diabetes mellitus, well controlled Start:27-Sep-2021 Instruction Type:Patient Education Patient Instructions Indication:Nonsmoker Start:24-May-2021 Instruction Type:Provider Instructions for Treatment How to Access Health Informa tion Online using Patient Portal and [employer]rd [employer] Indication:Nonsmoker Start:24-May-2021 Instruction Type:Patient Education Patient Instructions Indication:Diabetes mellitus type II, controlled, with no complications (Renamed from Controlled type 2 diabetes mellitus without complication) Start:01-Feb-2021 Instruction Type:Provider Instructions for Treatment How to Access Health Informa tion Online using Patient Portal and [employer]rd [employer] Indication:Diabetes mellitus type II, controlled, with no complications (Renamed from Controlled type 2 diabetes mellitus without complication) Start:01-Feb-2021 Instruction Type:Patient Education Patient Instructions Indication:BMI 30.0-30.9,adult Start:26-Oct-2020 Instruction Type:Provider Instructions for Treatment How to Access Health Informa tion Online using Patient Portal and [employer]rd [employer] Indication:BMI 30.0-30.9,adult Start:26-Oct-2020 Instruction Type:Patient Education How to Access Health Informa tion Online using Patient Portal and [employer]rd [employer] Indication:Nonsmoker Start:20-Jul-2020 Instruction Type:Patient Education Patient Instructions Indication:Nonsmoker Start:20-Jul-2020 Instruction Type:Provider Instructions for Treatment Patient Instructions Indication:Nonsmoker Start:13-Apr-2020 Instruction Type:Provider Instructions for Treatment How to Access Health Informa tion Online using Patient Portal and [employer]rd [employer] Indication:Nonsmoker Start:13-Apr-2020 Instruction Type:Patient Education How [...] tion Online using Patient Portal and [employer]rd [employer] Indication:BMI 34.0-34.9,adult Start:11-Apr-2022 Instruction Type:Patient Education Patient Instructions Indication:BMI 33.0-33.9,adult Start:03-Jan-2022 Instruction Type:Provider Instructions for Treatment How to Access Health Informa tion Online using Patient Portal and [employer]rd [employer] Indication:BMI 33.0-33.9,adult Start:03-Jan-2022 Instruction Type:Patient Education Patient Instructions Indication:Type II diabetes mellitus, well controlled Start:27-Sep-2021 Instruction Type:Provider Instructions for Treatment How to Access Health Informa tion Online using Patient Portal and [employer]rd [employer] Indication:Type II diabetes mellitus, well controlled Start:27-Sep-2021 Instruction Type:Patient Education Patient Instructions Indication:Nonsmoker Start:24-May-2021 Instruction Type:Provider Instructions for Treatment How to Access Health Informa tion Online using Patient Portal and [employer]rd [employer] Indication:Nonsmoker Start:24-May-2021 Instruction Type:Patient Education Patient Instructions Indication:Diabetes mellitus type II, controlled, with no complications (Renamed from Controlled type 2 diabetes mellitus without complication) Start:01-Feb-2021 Instruction Type:Provider Instructions for Treatment How to Access Health Informa tion Online using Patient Portal and [employer]rd [employer] Indication:Diabetes mellitus type II, controlled, with no complications (Renamed from Controlled type 2 diabetes mellitus without complication) Start:01-Feb-2021 Instruction Type:Patient Education Patient Instructions Indication:BMI 30.0-30.9,adult Start:26-Oct-2020 Instruction Type:Provider Instructions for Treatment How to Access Health Informa tion Online using Patient Portal and [employer]rd [employer] Indication:BMI 30.0-30.9,adult Start:26-Oct-2020 Instruction Type:Patient Education How to Access Health Informa tion Online using Patient Portal and [employer]rd [employer] Indication:Nonsmoker Start:20-Jul-2020 Instruction Type:Patient Education Patient Instructions Indication:Nonsmoker Start:20-Jul-2020 Instruction Type:Provider Instructions for Treatment Patient Instructions Indication:Nonsmoker Start:13-Apr-2020 Instruction Type:Provider Instructions for Treatment How to Access Health Informa tion Online using Patient Portal and [employer]rd [employer] Indication:Nonsmoker Start:13-Apr-2020 Instruction Type:Patient Education How [...] tion Online using Patient Portal and [employer]rd [employer] Indication:BMI 34.0-34.9,adult Start:11-Apr-2022 Instruction Type:Patient Education Patient Instructions Indication:BMI 33.0-33.9,adult Start:03-Jan-2022 Instruction Type:Provider Instructions for Treatment How to Access Health Informa tion Online using Patient Portal and [employer]rd [employer] Indication:BMI 33.0-33.9,adult Start:03-Jan-2022 Instruction Type:Patient Education Patient Instructions Indication:Type II diabetes mellitus, well controlled Start:27-Sep-2021 Instruction Type:Provider Instructions for Treatment How to Access Health Informa tion Online using Patient Portal and [employer]rd [employer] Indication:Type II diabetes mellitus, well controlled Start:27-Sep-2021 Instruction Type:Patient Education Patient Instructions Indication:Nonsmoker Start:24-May-2021 Instruction Type:Provider Instructions for Treatment How to Access Health Informa tion Online using Patient Portal and [employer]rd [employer] Indication:Nonsmoker Start:24-May-2021 Instruction Type:Patient Education Patient Instructions Indication:Diabetes mellitus type II, controlled, with no complications (Renamed from Controlled type 2 diabetes mellitus without complication) Start:01-Feb-2021 Instruction Type:Provider Instructions for Treatment How to Access Health Informa tion Online using Patient Portal and [employer]rd [employer] Indication:Diabetes mellitus type II, controlled, with no complications (Renamed from Controlled type 2 diabetes mellitus without complication) Start:01-Feb-2021 Instruction Type:Patient Education Patient Instructions Indication:BMI 30.0-30.9,adult Start:26-Oct-2020 Instruction Type:Provider Instructions for Treatment How to Access Health Informa tion Online using Patient Portal and [employer]rd [employer] Indication:BMI 30.0-30.9,adult Start:26-Oct-2020 Instruction Type:Patient Education How to Access Health Informa tion Online using Patient Portal and [employer]rd [employer] Indication:Nonsmoker Start:20-Jul-2020 Instruction Type:Patient Education Patient Instructions Indication:Nonsmoker Start:20-Jul-2020 Instruction Type:Provider Instructions for Treatment Patient Instructions Indication:Nonsmoker Start:13-Apr-2020 Instruction Type:Provider Instructions for Treatment How to Access Health Informa tion Online using Patient Portal and [employer]rd [employer] Indication:Nonsmoker Start:13-Apr-2020 Instruction Type:Patient Education How [...] tion Online using Patient Portal and [employer]rd [employer] Indication:Nonsmoker Start:06-Aug-2022 Instruction Type:Patient Education Patient Instructions Indication:BMI 34.0-34.9,adult Start:11-Apr-2022 Instruction Type:Provider Instructions for Treatment How to Access Health Informa tion Online using Patient Portal and [employer]rd [employer] Indication:BMI 34.0-34.9,adult Start:11-Apr-2022 Instruction Type:Patient Education Patient Instructions Indication:BMI 33.0-33.9,adult Start:03-Jan-2022 Instruction Type:Provider Instructions for Treatment How to Access Health Informa tion Online using Patient Portal and [employer]rd [employer] Indication:BMI 33.0-33.9,adult Start:03-Jan-2022 Instruction Type:Patient Education Patient Instructions Indication:Type II diabetes mellitus, well controlled Start:27-Sep-2021 Instruction Type:Provider Instructions for Treatment How to Access Health Informa tion Online using Patient Portal and 3rd [employer] Indication:Type II diabetes mellitus, well controlled Start:27-Sep-2021 Instruction Type:Patient Education Patient Instructions Indication:Nonsmoker Start:24-May-2021 Instruction Type:Provider Instructions for Treatment How to Access Health Informa tion Online using Patient Portal and [employer]rd [employer] Indication:Nonsmoker Start:24-May-2021 Instruction Type:Patient Education Patient Instructions Indication:Diabetes mellitus type II, controlled, with no complications (Renamed from Controlled type 2 diabetes mellitus without complication) Start:01-Feb-2021 Instruction Type:Provider Instructions for Treatment How to Access Health Informa tion Online using Patient Portal and 3rd [employer] Indication:Diabetes mellitus type II, controlled, with no complications (Renamed from Controlled type 2 diabetes mellitus without complication) Start:01-Feb-2021 Instruction Type:Patient Education Patient Instructions Indication:BMI 30.0-30.9,adult Start:26-Oct-2020 Instruction Type:Provider Instructions for Treatment How to Access Health Informa tion Online using Patient Portal and [employer]rd [employer] Indication:BMI 30.0-30.9,adult Start:26-Oct-2020 Instruction Type:Patient Education How to Access Health Informa tion Online using Patient Portal and 3rd [employer] Indication:Nonsmoker Start:20-Jul-2020 Instruction Type:Patient Education Patient Instructions Indication:Nonsmoker Start:20-Jul-2020 Instruction Type:Provider Instructions for Treatment Patient Instructions Indication:Nonsmoker Start:13-Apr-2020 Instruction Type:Provider Instructions for Treatment How to Access Health Informa tion Online using Patient Portal and 3rd [employer] Indication:Nonsmoker Start:13-Apr-2020 Instruction Type:Patient Education How [...] tion Online using Patient Portal and 3rd [employer] Indication:Nonsmoker Start:06-Aug-2022 Instruction Type:Patient Education Patient Instructions Indication:BMI 34.0-34.9,adult Start:11-Apr-2022 Instruction Type:Provider Instructions for Treatment How to Access Health Informa tion Online using Patient Portal and 3rd [employer] Indication:BMI 34.0-34.9,adult Start:11-Apr-2022 Instruction Type:Patient Education Patient Instructions Indication:BMI 33.0-33.9,adult Start:03-Jan-2022 Instruction Type:Provider Instructions for Treatment How to Access Health Informa tion Online using Patient Portal and 3rd [employer] Indication:BMI 33.0-33.9,adult Start:03-Jan-2022 Instruction Type:Patient Education Patient Instructions Indication:Type II diabetes mellitus, well controlled Start:27-Sep-2021 Instruction Type:Provider Instructions for Treatment How to Access Health Informa tion Online using Patient Portal and 3rd [employer] Indication:Type II diabetes mellitus, well controlled Start:27-Sep-2021 Instruction Type:Patient Education Patient Instructions Indication:Nonsmoker Start:24-May-2021 Instruction Type:Provider Instructions for Treatment How to Access Health Informa tion Online using Patient Portal and 3rd [employer] Indication:Nonsmoker Start:24-May-2021 Instruction Type:Patient Education Patient Instructions Indication:Diabetes mellitus type II, controlled, with no complications (Renamed from Controlled type 2 diabetes mellitus without complication) Start:01-Feb-2021 Instruction Type:Provider Instructions for Treatment How to Access Health Informa tion Online using Patient Portal and 3rd [employer] Indication:Diabetes mellitus type II, controlled, with no complications (Renamed from Controlled type 2 diabetes mellitus without complication) Start:01-Feb-2021 Instruction Type:Patient Education Patient Instructions Indication:BMI 30.0-30.9,adult Start:26-Oct-2020 Instruction Type:Provider Instructions for Treatment How to Access Health Informa tion Online using Patient Portal and 3rd [employer] Indication:BMI 30.0-30.9,adult Start:26-Oct-2020 Instruction Type:Patient Education How to Access Health Informa tion Online using Patient Portal and 3rd [employer] Indication:Nonsmoker Start:20-Jul-2020 Instruction Type:Patient Education Patient Instructions Indication:Nonsmoker Start:20-Jul-2020 Instruction Type:Provider Instructions for Treatment Patient Instructions Indication:Nonsmoker Start:13-Apr-2020 Instruction Type:Provider Instructions for Treatment How to Access Health Informa tion Online using Patient Portal and 3rd [employer] Indication:Nonsmoker Start:13-Apr-2020 Instruction Type:Patient Education How [...] Informa tion Online using Patient Portal and [employer] Apps Indication:Nonsmoker Start:24-Oct-2022 Instruction Type:Patient Education Patient Instructions Indication:Nonsmoker Start:24-Oct-2022 Instruction Type:Provider Instructions for Treatment Patient Instructions Indication:Nonsmoker Start:06-Aug-2022 Instruction Type:Provider Instructions for Treatment How to Access Health Informa tion Online using Patient Portal and [employer] Indication:Nonsmoker Start:06-Aug-2022 Instruction Type:Patient Education Patient Instructions Indication:BMI 34.0-34.9,adult Start:11-Apr-2022 Instruction Type:Provider Instructions for Treatment How to Access Health Informa tion Online using Patient Portal and 3rd [employer] Indication:BMI 34.0-34.9,adult Start:11-Apr-2022 Instruction Type:Patient Education Patient Instructions Indication:BMI 33.0-33.9,adult Start:03-Jan-2022 Instruction Type:Provider Instructions for Treatment How to Access Health Informa tion Online using Patient Portal and 3rd [employer] Indication:BMI 33.0-33.9,adult Start:03-Jan-2022 Instruction Type:Patient Education Patient Instructions Indication:Type II diabetes mellitus, well controlled Start:27-Sep-2021 Instruction Type:Provider Instructions for Treatment How to Access Health Informa tion Online using Patient Portal and 3rd [employer] Indication:Type II diabetes mellitus, well controlled Start:27-Sep-2021 Instruction Type:Patient Education Patient Instructions Indication:Nonsmoker Start:24-May-2021 Instruction Type:Provider Instructions for Treatment How to Access Health Informa tion Online using Patient Portal and 3rd [employer] Indication:Nonsmoker Start:24-May-2021 Instruction Type:Patient Education Patient Instructions Indication:Diabetes mellitus type II, controlled, with no complications (Renamed from Controlled type 2 diabetes mellitus without complication) Start:01-Feb-2021 Instruction Type:Provider Instructions for Treatment How to Access Health Informa tion Online using Patient Portal and 3rd [employer] Indication:Diabetes mellitus type II, controlled, with no complications (Renamed from Controlled type 2 diabetes mellitus without complication) Start:01-Feb-2021 Instruction Type:Patient Education Patient Instructions Indication:BMI 30.0-30.9,adult Start:26-Oct-2020 Instruction Type:Provider Instructions for Treatment How to Access Health Informa tion Online using Patient Portal and 3rd [employer] Indication:BMI 30.0-30.9,adult Start:26-Oct-2020 Instruction Type:Patient Education How to Access Health Informa tion Online using Patient Portal and 3rd [employer] Indication:Nonsmoker Start:20-Jul-2020 Instruction Type:Patient Education Patient Instructions Indication:Nonsmoker Start:20-Jul-2020 Instruction Type:Provider Instructions for Treatment Patient Instructions Indication:Nonsmoker Start:13-Apr-2020 Instruction Type:Provider Instructions for Treatment How to Access Health Informa tion Online using Patient Portal and 3rd [employer] Indication:Nonsmoker Start:17-Feb-2021 Instruction Type:Patient Education How to access health [...] Informa tion Online using Patient Portal and [employer] Indication:Nonsmoker Start:24-Oct-2022 Instruction Type:Patient Education Patient Instructions Indication:Nonsmoker Start:24-Oct-2022 Instruction Type:Provider Instructions for Treatment Patient Instructions Indication:Nonsmoker Start:06-Aug-2022 Instruction Type:Provider Instructions for Treatment How to Access Health Informa tion Online using Patient Portal and 3rd [employer] Indication:Nonsmoker Start:06-Aug-2022 Instruction Type:Patient Education Patient Instructions Indication:BMI 34.0-34.9,adult Start:11-Apr-2022 Instruction Type:Provider Instructions for Treatment How to Access Health Informa tion Online using Patient Portal and 3rd [employer] Indication:BMI 34.0-34.9,adult Start:11-Apr-2022 Instruction Type:Patient Education Patient Instructions Indication:BMI 33.0-33.9,adult Start:03-Jan-2022 Instruction Type:Provider Instructions for Treatment How to Access Health Informa tion Online using Patient Portal and 3rd [employer] Indication:BMI 33.0-33.9,adult Start:03-Jan-2022 Instruction Type:Patient Education Patient Instructions Indication:Type II diabetes mellitus, well controlled Start:27-Sep-2021 Instruction Type:Provider Instructions for Treatment How to Access Health Informa tion Online using Patient Portal and 3rd [employer] Indication:Type II diabetes mellitus, well controlled Start:27-Sep-2021 Instruction Type:Patient Education Patient Instructions Indication:Nonsmoker Start:24-May-2021 Instruction Type:Provider Instructions for Treatment How to Access Health Informa tion Online using Patient Portal and 3rd [employer] Indication:Nonsmoker Start:24-May-2021 Instruction Type:Patient Education Patient Instructions Indication:Diabetes mellitus type II, controlled, with no complications (Renamed from Controlled type 2 diabetes mellitus without complication) Start:01-Feb-2021 Instruction Type:Provider Instructions for Treatment How to Access Health Informa tion Online using Patient Portal and 3rd [employer] Indication:Diabetes mellitus type II, controlled, with no complications (Renamed from Controlled type 2 diabetes mellitus without complication) Start:01-Feb-2021 Instruction Type:Patient Education Patient Instructions Indication:BMI 30.0-30.9,adult Start:26-Oct-2020 Instruction Type:Provider Instructions for Treatment How to Access Health Informa tion Online using Patient Portal and 3rd [employer] Indication:BMI 30.0-30.9,adult Start:26-Oct-2020 Instruction Type:Patient Education How to Access Health Informa tion Online using Patient Portal and 3rd [employer] Indication:Nonsmoker Start:20-Jul-2020 Instruction Type:Patient Education Patient Instructions Indication:Nonsmoker Start:20-Jul-2020 Instruction Type:Provider Instructions for Treatment Patient Instructions Indication:Nonsmoker Start:13-Apr-2020 Instruction Type:Provider Instructions for Treatment How to Access Health Informa tion Online using Patient Portal and 3rd [employer] Indication:Nonsmoker Start:13-Apr-2020 Instruction Type:Patient Education How [...] - Detail Indication:BMI 32.0-32.9,adult BMI 32.0-32.9,adult : Patiscooter t Instructions Indication:BMI 32.0-32.9,adult Flu-like symptoms : [...] - Detail Indication:BMI 30.0-30.9,adult BMI 30.0-30.9,adult : Eugeniaen t Instructions Indication:BMI 30.0-30.9,adult Diabetes mellitus type [...] Informa tion Online using Patient Portal and [employer] Apps Indication:Nonsmoker Start:13-Apr-2020 Instruction Type:Patient Education How [...] - Detail Indication:BMI 30.0-30.9,adult BMI 30.0-30.9,adult : Becka lyon Instructions Indication:BMI 30.0-30.9,adult Diabetes mellitus type II, [...] - Detail Indication:BMI 32.0-32.9,adult BMI 32.0-32.9,adult : Becka lyon Instructions Indication:BMI 32.0-32.9,adult Flu-like symptoms : How [...] content) DATE CREATED AUTHOR 06/21/2022 [employer] FOR RECORDS PERTAINING TO PATIENTS WHO ARE [...] BE BASED ON THE PRIMARY CLINICAL RECORDS. [employer] provides no warranty or guarantee of the accuracy or completeness of information in this document.
--- OUTSIDE RECORDS SUMMARY | 2024-09-22 03:04 | XMS RPT_ITS | CCD ---
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 [id number] Neutrophils (Bld) [#/Vol] 3.9 10*3/uL Normal 1.4-7.0 [facility]; [facility] Work Phone: Comment on above: PATIENT WAS FASTINGP ERFORMED BY: [facility] Qpunku5020 [address]zo RoadOnslow Memorial Hospitalin [place] [id number] Neutrophils/100 WBC (Bld) 59 % Normal [facility]; [facility] Work Phone: Comment on above: PATIENT WAS FASTINGP ERFORMED BY: [facility] Txrpdq9850 [address] [facility] [place] [id number] Platelets (Bld) [#/Vol] 281 10*3/uL Normal 150-450 [facility]; [facility] Work Phone: Comment on above: PATIENT WAS FASTINGP ERFORMED BY: [facility] Ndluip8530 [address] [facility] [place] [id number] RBC (Bld) [#/Vol] 5.66 10*6/uL Normal 4.14-5.80 Compr ehensive Internal Medicine; [facility] Work Phone: Comment on above: PATIENT WAS FASTINGP ERFORMED BY: [facility] Mqencs0648 [address]zo RoadOnslow Memorial Hospitalin [place] [id number] WBC (Bld) [#/Vol] 6.6 10*3/uL Normal 3.4-10.8 Compre hensive Internal Medicine; [facility] Work Phone: Comment on above: PATIENT WAS FASTINGP ERFORMED BY: [facility] Caknjp8222 [address] [facility] [place] [id number] HGB A1C (78534)Ordered By: S ystem Chief Innovation Officer on 07-04-2022 HbA1c (Bld) [Mass fraction] 6.8 % Abnormal 4.8-5.6 [facility]; [facility] Work Phone: Comment on above: . Prediabetes: 5.7 - 6.4 Diabetes: >6.4 Glycemic control for adults with diabetes: <7.0 PATIENT WAS FASTINGP ERFORMED BY: MENDEZ Labcomelyssa Eftgzm0322 Al[address] RoadDublin [place] [id number] LIPID PANEL (94880)Ordered B y: Dry Cleaner Apprentice on 07-04-2022 Cholesterol [Mass/Vol] 178 mg/dL Normal 100-199 [facility]; [facility] Work Phone: Comment on above: PATIENT WAS FASTINGP ERFORMED BY: MENDEZ [facility] Jcmkwh2935 [address] RoadDublin [place] [id number] Cholesterol in HDL [Mass/Vol] 33 mg/dL Abnormal [facility]; [facility] Work Phone: Comment on above: PATIENT WAS FASTINGP ERFORMED BY: MENDEZ Labcomelyssa Fquytw3266 [address] RoadDublin [place] [id number] Triglyceride [Mass/Vol] 357 mg/dL Abnormal 0-149 [facility]; [facility] Work Phone: Comment on above: PATIENT WAS FASTINGP ERFORMED BY: MENDEZ Labcomelyssa Xhyzdh3725 [address] RoadDublin [place] [id number] LIPID PANEL (28932) 59 mg/dL Abnormal 5-40 Compr ensive Internal Medicine; [facility] Work Phone: Comment on above: PATIENT WAS FASTINGP ERFORMED BY: MENDEZ [facility] Cvzjoz2241 [address] RoadDublin [place] [id number] LIPID PANEL (20799) 86 mg/dL Normal 0-99 Compr ensive Internal Medicine; [facility] Work Phone: Comment on above: PATIENT WAS FASTINGP ERFORMED BY: MENDEZ [facility] Odidze7666 [address] RoadDublin [place] [id number] LIPID PANEL (11081) 2.6 {ratio} Normal 0.0-3.6 Comp [facility] centerensive [facility]; [facility] Work Phone: Comment on above: LDL/HDL Ratio Men Wo men 1/2 Avg.Risk 1.0 1.5 Avg.Risk 3.6 3.2 2X Avg.Risk 6.2 5.0 3X Avg.Risk 8.0 6.1 PATIENT WAS FASTINGP ERFORMED BY: MENDEZ Zaynabmelyssa Aeogls9114 [address] [facility]bl[facility] [place] [id number] METABOLIC PANEL, COMPREHENSI VE (34332)Ordered By: Dry Cleaner Apprentice on 07-04-2022 Albumin [Mass/Vol] 4.7 g/dL Normal 3.8-4.9 [facility] Internal Medicine; [facility] Work Phone: Comment on above: PATIENT WAS FASTINGP ERFORMED BY: MENDEZ Labgabbie Mpeosc3037 [address] [facility] [place] [id number] Albumin/Globulin [Mass ratio] 1.6 {ratio} Normal 1.2-2.2 [facility]; [facility] Work Phone: Comment on above: PATIENT WAS FASTINGP ERFORMED BY: MENDEZ Zaynabmelyssa Hzlasp0091 [address] [facility] [place] [id number] ALP [Catalytic activity/Vol] 74 U/L Normal 44-121 [facility]; [facility] Work Phone: Comment on above: PATIENT WAS FASTINGP ERFORMED BY: MENDEZ Zaynabmelyssa Obdhzs3012 [address] [facility]in [place] [id number] ALT [Catalytic activity/Vol] 31 U/L Normal 0-44 [facility]; [facility] Work Phone: Comment on above: PATIENT WAS FASTINGP ERFORMED BY: MENDEZ Labbrittanymelyssa Qgsrug9455 [address] [facility]in [place] [id number] AST [Catalytic activity/Vol] 24 U/L Normal 0-40 [facility]; [facility] Work Phone: Comment on above: PATIENT WAS FASTINGP ERFORMED BY: MENDEZ Labgabbie Tdfiup8629 [address] [facility]bl[facility] [place] [id number] Bilirubin [Mass/Vol] 0.4 mg/dL Normal 0.0-1.2 [facility] Internal Medicine; [facility] Work Phone: Comment on above: PATIENT WAS FASTINGP ERFORMED BY: MENDEZ [facility] Gcmuiw1664 [address] RoadDublin [place] [id number] Calcium [Mass/Vol] 10.3 mg/dL Abnormal 8.7-10.2 [facility]; [facility] Work Phone: Comment on above: PATIENT WAS FASTINGP ERFORMED BY: MENDEZ [facility] Mlpgfs8903 [address] RoadDublin [place] [id number] Chloride [Moles/Vol] 101 mmol/L Normal 96-106 [facility]; [facility] Work Phone: Comment on above: PATIENT WAS FASTINGP ERFORMED BY: MENDEZ [facility] Alyzgd1741 [address] RoadDublin [place] [id number] CO2 [Moles/Vol] 23 mmol/L Normal 20-29 [facility] Internal Medicine; [facility] Work Phone: Comment on above: PATIENT WAS FASTINGP ERFORMED BY: MENDEZ [facility] Hbrizl5176 [address] RoadDublin [place] [id number] Creatinine [Mass/Vol] 0.82 mg/dL Normal 0.76-1.27 [facility] Internal Medicine; [facility] Work Phone: Comment on above: PATIENT WAS FASTINGP ERFORMED BY: MENDEZ [facility] Rcmgls4436 [address] RoadDublin [place] [id number] GFR/1.73 sq M.predicted among non-blacks MDRD (S/P/Bld) [Vol rate/Area] 104 mL/min/{1.73_m2} Normal [facility] Internal Medicine; [facility] Work Phone: Comment on above: PATIENT WAS FASTINGP ERFORMED BY: MENDEZ [facility] Adtwic1420 [address] RoadDublin [place] [id number] Globulin (S) [Mass/Vol] 3.0 g/dL Normal 1.5-4.5 [facility] Internal Medicine; [facility] Work Phone: Comment on above: PATIENT WAS FASTINGP ERFORMED BY: MENDEZ [facility] Cypcxv9199 [address] RoadDublin [place] [id number] Glucose [Mass/Vol] 111 mg/dL Abnormal 70-99 [facility] Internal [facility]; [facility] Work Phone: Comment on above: PATIENT WAS FASTINGP ERFORMED BY: CB [facility] Rchije5565 [address] RoadDublin [place] [id number] Potassium [Moles/Vol] 5.2 mmol/L Normal 3.5-5.2 [facility] prehensive Internal Medicine; [facility] Work Phone: Comment on above: PATIENT WAS FASTINGP ERFORMED BY: CB [facility] Odsdfw4123 [address] RoadDublin [place] [id number] Protein [Mass/Vol] 7.7 g/dL Normal 6.0-8.5 [facility]; [facility] Work Phone: Comment on above: PATIENT WAS FASTINGP ERFORMED BY: CB [facility] Xwrelu1554 [address] RoadDublin [place] [id number] Sodium [Moles/Vol] 139 mmol/L Normal 134-144 [facility]; [facility] Work Phone: Comment on above: PATIENT WAS FASTINGP ERFORMED BY: CB [facility] Jheyvz0706 [address] RoadDublin [place] [id number] Urea nitrogen [Mass/Vol] 11 mg/dL Normal 6-24 [facility]; [facility] Work Phone: Comment on above: PATIENT WAS FASTINGP ERFORMED BY: CB [facility] Qtoubc4573 [address] RoadDublin [place] [id number] Urea nitrogen/Creatinine [Mass ratio] 13 mg/mg Normal 9-20 [facility]; [facility] Work Phone: Comment on above: PATIENT WAS FASTINGP ERFORMED BY: CB [facility] Hcqnna8571 [address] RoadDublin [place] [id number] METABOLIC PANEL, COMPREHENSIVE (81105) 104 mL/min/1.73 Normal Comprehens tyron Internal Medicine; [facility] Work Phone: MICROALBUMINOrdered By: Syst em Chief Innovation Officer on 07-04-2022 Albumin DL <= 20 mg/L (U) [Mass/Vol] 12.9 ug/mL Normal [facility]; [facility] Work Phone: Comment on above: PATIENT WAS FASTINGP ERFORMED BY: [employer] Vwyxbi6931 [address] On Demand TherapeuticsOnslow Memorial Hospitalin [place] [id number] Albumin/Creatinine (U) [Mass ratio] 10 {mg/g_creat} Normal 0-29 [facility]; [facility] Work Phone: Comment on above: Normal: 0 - 29 Moder ately increased: 30 - 300 Severely increased: >300 PATIENT WAS FASTINGP ERFORMED BY: LabLaunchPoint Lntnmm1173 [address] On Demand TherapeuticsOnslow Memorial Hospitalin [place] [id number] Creatinine (U) [Mass/Vol] 125.1 mg/dL Normal [facility]; [facility] Work Phone: Comment on above: PATIENT WAS FASTINGP ERFORMED BY: [employer]6370 [facility] [id number] TSH (THYROID STIMULATING HOR BRYN) (89991)Ordered By: Dry Cleaner Apprentice on 07-04-2022 TSH Qn 2.630 {uIU/mL} Normal 0.450-4.50 0 [facility]; [facility] Work Phone: Comment on above: PATIENT WAS FASTINGP ERFORMED BY: [employer] Hwmwxr2198 [facility] [id number] HGB A1C (16256)Ordered By: S ystem Chief Innovation Officer on 04-11-2022 HbA1c (Bld) [Mass fraction] 8.0 % Abnormal 4.8-5.6 [facility]; [facility] Work Phone: Comment on above: . Prediabetes: 5.7 - 6.4 Diabetes: >6.4 Glycemic control for adults with diabetes: <7.0 PATIENT WAS FASTINGP ERFORMED BY: [employer] LabLaunchPoint Mxzoma1889 [facility] [id number] Blood Glucose , Office ([phone] 2)Ordered By: Marshall Rosenthal on 01-03-2022 Glucose Glucometer (BldC) [Moles/Vol] 143 1 Normal [facility]; [facility] Work Phone: HgA1C , Office ([id number])Ordere d By: Marshall Rosenthal on 01-03-2022 HbA1c (Bld) [Mass fraction] 6.8 % Normal 4.6 - 7.1 [facility]; [facility] Work Phone: Blood Glucose , Office ([phone])Ordered By: Angelica Meneses on 09-27-2021 Glucose Glucometer (BldC) [Moles/Vol] 136 1 Normal [facility]; [facility] Work Phone: CALCIFIDIOL (82307) VIT D 25 Ordered By: Dry Cleaner Apprentice on 09-27-2021 25-hydroxyvitamin D [Mass/Vol] 36.5 ng/mL Normal 30.0-100.0 [facility]; [facility] Work Phone: Comment on above: Vitamin D deficiency has been defined by the [place] ofMedicine and an Endocrine Society practice guideline as alevel of serum 25-OH vitamin D less than 20 ng/mL (1,2).The Endocrine Society went on to further define vitamin Dinsufficiency as a level between 21 and 29 ng/mL (2).1. IOM ([place] of Medicine). 2010. Dietary reference intakes for calcium and D. [place]: The National Academies Press.2. Magno MF, Do [place], Jos PRATER, et al. Evaluation, treatment, and prevention of vitamin D deficiency: an Endocrine Society clinical practice guideline. JCEM. 2010; 96(7):1911-30. PATIENT WAS FASTINGP ERFORMED BY: PO-MO70 vocaltapAtrium Health Waxhaw [id number] CBC W/AUTO DIFF WBC (23272)O rdered By: Dry Cleaner Apprentice on 09-27-2021 Basophils (Bld) [#/Vol] 0.0 10*3/uL Normal 0.0-0.2 [facility]; [facility] Work Phone: Comment on above: PATIENT WAS FASTINGP ERFORMED BY: PO-MO70 vocaltapAtrium Health Waxhaw [id number] Basophils/100 WBC (Bld) 1 % Normal [facility]; [facility] Work Phone: Comment on above: PATIENT WAS FASTINGP ERFORMED BY: [facility] Gsgmyt4270 [address] RoadDublin [place] [id number] Eosinophils (Bld) [#/Vol] 0.2 10*3/uL Normal 0.0-0.4 [facility]; [facility] Work Phone: Comment on above: PATIENT WAS FASTINGP ERFORMED BY: [facility] Igdsgo9661 [address] RoadDublin [place] [id number] Eosinophils/100 WBC (Bld) 3 % Normal [facility]; [facility] Work Phone: Comment on above: PATIENT WAS FASTINGP ERFORMED BY: [facility] Heweyy9028 [address] Roadblin [place] [id number] Erythrocyte distribution width (RBC) [Ratio] 13.4 % Normal 11.6-15.4 [facility]; [facility] Work Phone: Comment on above: PATIENT WAS FASTINGP ERFORMED BY: [facility] Skyphm5124 [address]zo RoadOnslow Memorial Hospitalin [place] [id number] Hematocrit (Bld) [Volume fraction] 45.1 % Normal 37.5-51.0 [facility]; [facility] Work Phone: Comment on above: PATIENT WAS FASTINGP ERFORMED BY: [facility] Ctxjqz1667 [address] Roadblin [place] [id number] Hemoglobin (Bld) [Mass/Vol] 15.1 g/dL Normal 13.0-17.7 [facility]; [facility] Work Phone: Comment on above: PATIENT WAS FASTINGP ERFORMED BY: [facility] Gdywpx9848 [address] RoadDublin [place] [id number] Immature granulocytes (Bld) [#/Vol] 0.0 10*3/uL Normal 0.0-0.1 [facility]; [facility] Work Phone: Comment on above: PATIENT WAS FASTINGP ERFORMED BY: [facility] Roriys6713 [address] RoadDublin [place] [id number] Immature granulocytes/100 WBC (Bld) 0 % Normal [facility]; [facility] Work Phone: Comment on above: PATIENT WAS FASTINGP ERFORMED BY: [facility] Nphxqh2701 [address] RoadDublin [place] [id number] Lymphocytes (Bld) [#/Vol] 1.7 10*3/uL Normal 0.7-3.1 [facility]; [facility] Work Phone: Comment on above: PATIENT WAS FASTINGP ERFORMED BY: [facility] Znqrda0638 [address] RoadDublin [place] [id number] Lymphocytes/100 WBC (Bld) 31 % Normal [facility]; [facility] Work Phone: Comment on above: PATIENT WAS FASTINGP ERFORMED BY: [facility] Xdrwls1888 [address] Roadblin [place] [id number] MCH (RBC) [Entitic mass] 28.2 pg Normal 26.6-33.0 [facility]; [facility] Work Phone: Comment on above: PATIENT WAS FASTINGP ERFORMED BY: [facility] Fibbua2542 [address] Roadblin [place] [id number] MCHC (RBC) [Mass/Vol] 33.5 g/dL Normal 31.5-35.7 [facility] prehensive Internal Medicine; [facility] Work Phone: Comment on above: PATIENT WAS FASTINGP ERFORMED BY: [facility] Vxntuc5539 [address] [facility] HospitalDublin [place] [id number] MCV (RBC) [Entitic vol] 84 fL Normal 79-97 [facility]; [facility] Work Phone: Comment on above: PATIENT WAS FASTINGP ERFORMED BY: [facility] Jzfkdc6440 [address] RoadDublin [place] [id number] Monocytes (Bld) [#/Vol] 0.4 10*3/uL Normal 0.1-0.9 [facility]; [facility] Work Phone: Comment on above: PATIENT WAS FASTINGP ERFORMED BY: [facility] Kmymel9714 [address] RoadDublin [place] [id number] Monocytes/100 WBC (Bld) 8 % Normal [facility]; [facility] Work Phone: Comment on above: PATIENT WAS FASTINGP ERFORMED BY: CB [facility] Woyplq0888 [address] RoadDublin [place] [id number] Neutrophils (Bld) [#/Vol] 3.1 10*3/uL Normal 1.4-7.0 [facility]; [facility] Work Phone: Comment on above: PATIENT WAS FASTINGP ERFORMED BY: CB [facility] Zcsugx7872 [address] RoadDublin [place] [id number] Neutrophils/100 WBC (Bld) 57 % Normal [facility]; [facility] Work Phone: Comment on above: PATIENT WAS FASTINGP ERFORMED BY: CB [facility] Mtbdrx8723 [address] RoadDublin [place] [id number] Platelets (Bld) [#/Vol] 273 10*3/uL Normal 150-450 [facility]; [facility] Work Phone: Comment on above: PATIENT WAS FASTINGP ERFORMED BY: CB [facility] Ibxzjx9608 [address] RoadDublin [place] [id number] RBC (Bld) [#/Vol] 5.35 10*6/uL Normal 4.14-5.80 Compr [facility] Internal Medicine; [facility] Work Phone: Comment on above: PATIENT WAS FASTINGP ERFORMED BY: CB [facility] Ewxrri8131 [address] RoadDublin [place] [id number] WBC (Bld) [#/Vol] 5.5 10*3/uL Normal 3.4-10.8 [facility] Internal Medicine; [facility] Work Phone: Comment on above: PATIENT WAS FASTINGP ERFORMED BY: CB [facility] Kxptzc0026 [address] RoadDublin [place] [id number] HgA1C , Office ([id number])Ordere d By: Angelica Meneses on 09-27-2021 HbA1c (Bld) [Mass fraction] 6.4 % Normal 4.6 - 7.1 [facility]; [facility] Work Phone: LIPID PANEL (13647)Ordered B y: Dry Cleaner Apprentice on 09-27-2021 Cholesterol [Mass/Vol] 192 mg/dL Normal 100-199 [facility]; [facility] Work Phone: Comment on above: PATIENT WAS FASTINGP ERFORMED BY: MENDEZ [facility] Veslzf4377 [address] RoadDublin [place] [id number] Cholesterol in HDL [Mass/Vol] 40 mg/dL Normal [facility]; [facility] Work Phone: Comment on above: PATIENT WAS FASTINGP ERFORMED BY: CB [facility] Pzbbeh1140 [address] RoadDublin [place] [id number] Triglyceride [Mass/Vol] 203 mg/dL Abnormal 0-149 [facility]; [facility] Work Phone: Comment on above: PATIENT WAS FASTINGP ERFORMED BY: MENDEZ [facility] Rwrvvn3739 [address] RoadDublin [place] [id number] LIPID PANEL (52221) 36 mg/dL Normal 5-40 [facility]; [facility] Work Phone: Comment on above: PATIENT WAS FASTINGP ERFORMED BY: CB [facility] Rhktpz5201 [address] RoadDublin [place] [id number] LIPID PANEL (99129) 116 mg/dL Abnormal 0-99 [facility]; [facility] Work Phone: Comment on above: PATIENT WAS FASTINGP ERFORMED BY: CB [facility] Awcapw5599 [address] RoadDublin [place] [id number] LIPID PANEL (09102) 2.9 {ratio} Normal 0.0-3.6 [facility]; [facility] Work Phone: Comment on above: LDL/HDL Ratio Men Wo men 1/2 Avg.Risk 1.0 1.5 Avg.Risk 3.6 3.2 2X Avg.Risk 6.2 5.0 3X Avg.Risk 8.0 6.1 PATIENT WAS FASTINGP ERFORMED BY: CB [facility] Lvhakv1482 [address] RoadDublin [place] [id number] METABOLIC PANEL, COMPREHENSI VE (68690)Ordered By: Dry Cleaner Apprentice on 09-27-2021 Albumin [Mass/Vol] 4.7 g/dL Normal 3.8-4.9 [facility] Internal Medicine; [facility] Work Phone: Comment on above: PATIENT WAS FASTINGP ERFORMED BY: CB [facility] Vwsimm8358 [address] RoadDublin [place] [id number] Albumin/Globulin [Mass ratio] 1.7 {ratio} Normal 1.2-2.2 [facility]; [facility] Internal Medicine Work Phone: Comment on above: PATIENT WAS FASTINGP ERFORMED BY: CB [facility] Isrjtj6777 [address] RoadDublin [place] [id number] ALP [Catalytic activity/Vol] 69 U/L Normal 44-121 [facility]; [facility] Work Phone: Comment on above: PATIENT WAS FASTINGP ERFORMED BY: CB [facility] Gzgljn4384 [address] RoadDublin [place] [id number] ALT [Catalytic activity/Vol] 24 U/L Normal 0-44 [facility]; [facility] Work Phone: Comment on above: PATIENT WAS FASTINGP ERFORMED BY: CB [facility] Wgggze5906 [address] RoadDublin [place] [id number] AST [Catalytic activity/Vol] 22 U/L Normal 0-40 [facility]; [facility] Work Phone: Comment on above: PATIENT WAS FASTINGP ERFORMED BY: CB [facility] Actwjd9028 [address] RoadDublin [place] [id number] Bilirubin [Mass/Vol] 0.6 mg/dL Normal 0.0-1.2 [facility] Internal Medicine; [facility] Internal Medicine Work Phone: Comment on above: PATIENT WAS FASTINGP ERFORMED BY: CB [facility] Eivgfm6597 [address] RoadDublin [place] [id number] Calcium [Mass/Vol] 9.6 mg/dL Normal 8.7-10.2 [facility] Internal Medicine; [facility] Internal Medicine Work Phone: Comment on above: PATIENT WAS FASTINGP ERFORMED BY: CB [facility] Wujplj8812 [address] RoadDublin [place] [id number] Chloride [Moles/Vol] 102 mmol/L Normal 96-106 Comp rehensive Internal Medicine; [facility] Work Phone: Comment on above: PATIENT WAS FASTINGP ERFORMED BY: [facility] Bnenpf9688 [facility] [id number] CO2 [Moles/Vol] 23 mmol/L Normal 20-29 Comprehen [facility]; [facility] Work Phone: Comment on above: PATIENT WAS FASTINGP ERFORMED BY: LabCorewell [facility]6370 [facility] [id number] Creatinine [Mass/Vol] 0.96 mg/dL Normal 0.76-1.27 [facility] prehensive Internal Medicine; [facility] Work Phone: Comment on above: PATIENT WAS FASTINGP ERFORMED BY: [facility]6370 [facility] [id number] GFR/1.73 sq M.predicted among non-blacks MDRD (S/P/Bld) [Vol rate/Area] 95 mL/min/{1.73_m2} Normal Comprehensiv e Internal Medicine; [facility] Work Phone: Comment on above: PATIENT WAS FASTINGP ERFORMED BY: LabCorewell [facility]6370 [facility] [id number] Globulin (S) [Mass/Vol] 2.8 g/dL Normal 1.5-4.5 [facility]; [facility] Work Phone: Comment on above: PATIENT WAS FASTINGP ERFORMED BY: LabCorewell [facility]6370 [facility] [id number] Glucose [Mass/Vol] 125 mg/dL Abnormal 65-99 [facility] Internal [facility]; [facility] Work Phone: Comment on above: PATIENT WAS FASTINGP ERFORMED BY: LabCorewell [facility] Hospital6370 [facility] [id number] Potassium [Moles/Vol] 4.5 mmol/L Normal 3.5-5.2 [facility] prehensive Internal Medicine; [facility] Work Phone: Comment on above: PATIENT WAS FASTINGP ERFORMED BY: MENDEZ Labcomelyssa DudleyFbbvcv6523 [facility] [place] [id number] Protein [Mass/Vol] 7.5 g/dL Normal 6.0-8.5 [facility]; [facility] Work Phone: Comment on above: PATIENT WAS FASTINGP ERFORMED BY: MENDEZ Labcomelyssa Lsmxbm4674 [address] [facility] [id number] Sodium [Moles/Vol] 140 mmol/L Normal 134-144 [facility]; [facility] Work Phone: Comment on above: PATIENT WAS FASTINGP ERFORMED BY: MENDEZ Labcomelyssa DudleyHfdbxe2431 [address] [facility] [id number] Urea nitrogen [Mass/Vol] 15 mg/dL Normal 6-24 [facility]; [facility] Work Phone: Comment on above: PATIENT WAS FASTINGP ERFORMED BY: MENDEZ Labgabbie DudleyIjddwh5796 [facility] [id number] Urea nitrogen/Creatinine [Mass ratio] 16 mg/mg Normal 9-20 [facility]; [facility] Work Phone: Comment on above: PATIENT WAS FASTINGP ERFORMED BY: MENDEZ Labgabbie Pckyat5752 [facility] [id number] METABOLIC PANEL, COMPREHENSIVE (10625) 95 mL/min/1.73 Normal Comprehens tyron Internal Medicine; [facility] Work Phone: MICROALBUMINOrdered By: Syst em Chief Innovation Officer on 09-27-2021 Albumin DL <= 20 mg/L (U) [Mass/Vol] 20.8 ug/mL Normal [facility]; [facility] Work Phone: Comment on above: PATIENT WAS FASTINGP ERFORMED BY: MENDEZ [facility] Jyotxa0650 [address] [facility] [id number] Albumin/Creatinine (U) [Mass ratio] 10 {mg/g_creat} Normal 0-29 [facility]; [facility] Work Phone: Comment on above: Normal: 0 - 29 Moder ately increased: 30 - 300 Severely increased: >300 PATIENT WAS FASTINGP ERFORMED BY: [employer] Atxbid9427 [facility] [place] [id number] Creatinine (U) [Mass/Vol] 208.7 mg/dL Normal [facility]; [facility] Work Phone: Comment on above: PATIENT WAS FASTINGP ERFORMED BY: [employer] Iqwjtb2009 [address] On Demand TherapeuticsDublin [place] [id number] PSA (PROSTATE SPECIFIC ANTIG EN) (V76.44)Ordered By: Dry Cleaner Apprentice on 09-27-2021 Prostate specific Ag [Mass/Vol] 0.5 ng/mL Normal 0.0-4.0 [facility]; [facility] Work Phone: Comment on above: [employer] ECLIA methodol ogy. .According to the [place] [employer], Serum PSA shoulddecrease and remain [...] malignant disease. PATIENT WAS FASTINGP ERFORMED BY: [employer] Healthlin6370 vocaltapblin [place] [id number] TSH (77257)Ordered By: [employer] m Chief Innovation Officer on 09-27-2021 TSH Qn 2.430 {uIU/mL} Normal 0.450-4.50 0 [facility]; [facility] Work Phone: Comment on above: PATIENT WAS FASTINGP ERFORMED BY: [employer] Qbvsqo4204 [facility] [place] [id number] URINALYSIS, W/ MICRO (04172) Ordered By: Dry Cleaner Apprentice on 09-27-2021 Appearance (U) Clear Normal Comprehens tyron [facility]; [facility] Work Phone: Comment on above: PATIENT WAS FASTINGP ERFORMED BY: [employer] Uygzng3810 [address] On Demand TherapeuticsDublin [place] [id number] Bilirubin Ql (U) Negative Normal Comprehe nsive Internal Medicine; [facility] Work Phone: Comment on above: PATIENT WAS FASTINGP ERFORMED BY: MENDEZ Carolegabbie DudleyDtqgeg9142 [facility] [id number] Color (U) Yellow Normal [facility]; [facility] Work Phone: Comment on above: PATIENT WAS FASTINGP ERFORMED BY: MENDEZ Dudleylin6370 [facility] [id number] Glucose Ql (U) Negative Normal Comprehens tyron Internal Medicine; [facility] Work Phone: Comment on above: PATIENT WAS FASTINGP ERFORMED BY: MENDEZ Dudleylin6370 [facility] [id number] Hemoglobin Ql (U) Negative Normal Compreh ensive Internal Medicine; [facility] Work Phone: Comment on above: PATIENT WAS FASTINGP ERFORMED BY: MENDEZ Dudleylin6370 [facility] [id number] Ketones Ql (U) Negative Normal Comprehens tyron [facility] Medicine; [facility] Work Phone: Comment on above: PATIENT WAS FASTINGP ERFORMED BY: MENDEZ Dudleylin6370 [facility] [id number] Leukocyte esterase Test strip Ql (U) Negative Normal [facility]; [facility] Work Phone: Comment on above: PATIENT WAS FASTINGP ERFORMED BY: MENDEZ Dudleylin6370 [facility] [id number] Microscopic observation LM Nom (Urine sed) MICRON Normal [facility]; [facility] Work Phone: Comment on above: Microscopic follows if indicated. PATIENT WAS FASTINGP ERFORMED BY: MENDEZ Dudleylin6370 [facility] [id number] Microscopic observation LM Nom (Urine sed) See below: Normal [facility]; [facility] Work Phone: Comment on above: Microscopic was giovanni cated and was performed. PATIENT WAS FASTINGP ERFORMED BY: MENDEZ Bellamy Waxwwu3624 [facility] [facility] [place] [id number] Nitrite Ql (U) Negative Normal Comprehens tyron [facility] Medicine; [facility] Work Phone: Comment on above: PATIENT WAS FASTINGP ERFORMED BY: MENDEZ [employer] Nvgqcq5617 [address] Roadbl[address] [place] [id number] pH (U) 5.5 [pH] Normal 5.0-7.5 [facility]; [facility] Work Phone: Comment on above: PATIENT WAS FASTINGP ERFORMED BY: [facility] Qbtxpb4232 [address] Roadblin [place] [id number] Protein Ql (U) Trace Normal Comprehens tyron [facility]; [facility] Work Phone: Comment on above: PATIENT WAS FASTINGP ERFORMED BY: MENDEZ [facility] Icywye0781 [facility] [id number] Specific gravity (U) [Rel density] 1.028 1 Normal 1.005-1.03 0 [facility]; [facility] Work Phone: Comment on above: PATIENT WAS FASTINGP ERFORMED BY: [facility] Tutatk3852 [facility] [facility] HospitalDuin [place] [id number] Urobilinogen (U) [Mass/Vol] 0.2 mg/dL Normal 0.2-1.0 [facility]; [facility] Work Phone: Comment on above: PATIENT WAS FASTINGP ERFORMED BY: [facility]Core[facility]6370 [facility] [id number] Blood Glucose , Office ([phone])Ordered By: Angelica Meneses on 05-24-2021 Glucose Glucometer (BldC) [Moles/Vol] 174 1 Normal [facility]; [facility] Work Phone: HgA1C , Office ([phone])Ordere d By: Angelica Meneses on 05-24-2021 HbA1c (Bld) [Mass fraction] 6.3 % Normal 4.6 - 7.1 [facility]; [facility] Work Phone: Blood Glucose , Office ([phone])Ordered By: Tamar Keane on 02-01-2021 Glucose Glucometer (BldC) [Moles/Vol] 104 1 Normal [facility]; [facility] Work Phone: HgA1C , Office ([phone])Ordere d By: Tamar Keane on 02-01-2021 HbA1c (Bld) [Mass fraction] 5.9 % Normal 4.6 - 7.1 [facility]; [facility] Work Phone: CALCIFIDIOL (44842) VIT D 25 Ordered By: Dry Cleaner Apprentice on 01-18-2021 25-hydroxyvitamin D [Mass/Vol] 42.6 ng/mL Normal 30.0-100.0 [facility]; [facility] Work Phone: Comment on above: Vitamin D deficiency has been defined by the [place] ofMedicine and an Endocrine Society practice guideline as alevel of serum 25-OH vitamin D less than 20 ng/mL (1,2).The Endocrine Society went on to further define vitamin Dinsufficiency as a level between 21 and 29 ng/mL (2).1. IOM ([place] of Medicine). 2010. Dietary reference intakes for calcium and D. [place]: The National Academies Press.2. Magno MF, Do MILES, Jos PRATER, et al. Evaluation, treatment, and prevention of vitamin D deficiency: an Endocrine Society clinical practice guideline. JCEM. 2010; 96(7):1911-30. PATIENT WAS FASTINGP ERFORMED BY: GetN[employer]as70 [facility] [id number] CBC W/AUTO DIFF WBC (83866)O rdered By: Dry Cleaner Apprentice on 01-18-2021 Basophils (Bld) [#/Vol] 0.0 10*3/uL Normal 0.0-0.2 [facility]; [facility] Work Phone: Comment on above: PATIENT WAS FASTINGP ERFORMED BY: GetNinjas70 vocaltapAtrium Health Waxhaw [id number] Basophils/100 WBC (Bld) 1 % Normal [facility]; [facility] Work Phone: Comment on above: PATIENT WAS FASTINGP ERFORMED BY: [facility] Bdiodh2649 [address] RoadDublin [place] [id number] Eosinophils (Bld) [#/Vol] 0.2 10*3/uL Normal 0.0-0.4 [facility]; [facility] Work Phone: Comment on above: PATIENT WAS FASTINGP ERFORMED BY: [facility] Qbsheh5251 [address] RoadDublin [place] [id number] Eosinophils/100 WBC (Bld) 2 % Normal [facility]; [facility] Work Phone: Comment on above: PATIENT WAS FASTINGP ERFORMED BY: [facility] Ukgxac8170 [address] Roadblin [place] [id number] Erythrocyte distribution width (RBC) [Ratio] 13.2 % Normal 11.6-15.4 [facility]; [facility] Work Phone: Comment on above: PATIENT WAS FASTINGP ERFORMED BY: [facility] Nzgpyi0215 [address] RoadOnslow Memorial Hospitalin [place] [id number] Hematocrit (Bld) [Volume fraction] 44.2 % Normal 37.5-51.0 [facility]; [facility] Work Phone: Comment on above: PATIENT WAS FASTINGP ERFORMED BY: [facility] Daqpkt8246 [address] Roadbl[address] [place] [id number] Hemoglobin (Bld) [Mass/Vol] 15.0 g/dL Normal 13.0-17.7 [facility]; [facility] Work Phone: Comment on above: PATIENT WAS FASTINGP ERFORMED BY: [facility] Ttqqqr0362 [address] RoadDublin [place] [id number] Immature granulocytes (Bld) [#/Vol] 0.0 10*3/uL Normal 0.0-0.1 [facility]; [facility] Work Phone: Comment on above: PATIENT WAS FASTINGP ERFORMED BY: [facility] Vpzxcv8332 [address] RoadDublin [place] [id number] Immature granulocytes/100 WBC (Bld) 0 % Normal [facility]; [facility] Work Phone: Comment on above: PATIENT WAS FASTINGP ERFORMED BY: [facility] Llxeim0879 [address] RoadDublin [place] [id number] Lymphocytes (Bld) [#/Vol] 1.6 10*3/uL Normal 0.7-3.1 [facility]; [facility] Work Phone: Comment on above: PATIENT WAS FASTINGP ERFORMED BY: [facility] Ileoon2332 [address] Roadbl[address] [place] [id number] Lymphocytes/100 WBC (Bld) 20 % Normal [facility]; [facility] Work Phone: Comment on above: PATIENT WAS FASTINGP ERFORMED BY: [facility] Gaplbq8899 [address] Roadbl[address] [place] [id number] MCH (RBC) [Entitic mass] 28.9 pg Normal 26.6-33.0 [facility]; [facility] Work Phone: Comment on above: PATIENT WAS FASTINGP ERFORMED BY: [facility] Efdtvv8055 [address] Roadblin [place] [id number] MCHC (RBC) [Mass/Vol] 33.9 g/dL Normal 31.5-35.7 [facility] prehensive Internal Medicine; [facility] Work Phone: Comment on above: PATIENT WAS FASTINGP ERFORMED BY: [facility] Srypzt2027 [address] [facility] Systembl[facility] [place] [id number] MCV (RBC) [Entitic vol] 85 fL Normal 79-97 [facility]; [facility] Work Phone: Comment on above: PATIENT WAS FASTINGP ERFORMED BY: [facility] Jnpysy6425 [address] RoadDublin [place] [id number] Monocytes (Bld) [#/Vol] 0.5 10*3/uL Normal 0.1-0.9 [facility]; [facility] Work Phone: Comment on above: PATIENT WAS FASTINGP ERFORMED BY: [facility] Fihluv2028 [address] RoadDublin [place] [id number] Monocytes/100 WBC (Bld) 7 % Normal [facility]; [facility] Work Phone: Comment on above: PATIENT WAS FASTINGP ERFORMED BY: MENDEZ LabComelyssa Liehgm6643 [address] RoadDublin [place] [id number] Neutrophils (Bld) [#/Vol] 5.5 10*3/uL Normal 1.4-7.0 [facility]; [facility] Work Phone: Comment on above: PATIENT WAS FASTINGP ERFORMED BY: MENDEZ [facility] Gykixn4636 [address] RoadDublin [place] [id number] Neutrophils/100 WBC (Bld) 70 % Normal [facility]; [facility] Work Phone: Comment on above: PATIENT WAS FASTINGP ERFORMED BY: MENDEZ [facility] Wasxcl9533 [address] RoadDublin [place] [id number] Platelets (Bld) [#/Vol] 289 10*3/uL Normal 150-450 [facility]; [facility] Work Phone: Comment on above: PATIENT WAS FASTINGP ERFORMED BY: MENDEZ [facility] Ewddql5805 [address] RoadDublin [place] [id number] RBC (Bld) [#/Vol] 5.19 10*6/uL Normal 4.14-5.80 Compr ehensive Internal Medicine; [facility] Work Phone: Comment on above: PATIENT WAS FASTINGP ERFORMED BY: MENDEZ [facility] Xfvtqa2941 [address] RoadDublin [place] [id number] WBC (Bld) [#/Vol] 7.9 10*3/uL Normal 3.4-10.8 Compre [facility] Internal Medicine; [facility] Work Phone: Comment on above: PATIENT WAS FASTINGP ERFORMED BY: MENDEZ [facility] Cnfcmw7092 [address] RoadDublin [place] [id number] LIPID PANEL (62645)Ordered B y: Dry Cleaner Apprentice on 01-18-2021 Cholesterol [Mass/Vol] 198 mg/dL Normal 100-199 [facility]; [facility] Work Phone: Comment on above: PATIENT WAS FASTINGP ERFORMED BY: MENDEZ [facility] Hmmccl2989 [address] RoadDublin [place] [id number] Cholesterol in HDL [Mass/Vol] 46 mg/dL Normal [facility]; [facility] Work Phone: Comment on above: PATIENT WAS FASTINGP ERFORMED BY: MENDEZ [facility] Rpylpy3750 [address] RoadDublin [place] [id number] Triglyceride [Mass/Vol] 147 mg/dL Normal 0-149 [facility]; [facility] Work Phone: Comment on above: PATIENT WAS FASTINGP ERFORMED BY: CB [facility] Peyqtj5540 [address] RoadDublin [place] [id number] LIPID PANEL (06937) 26 mg/dL Normal 5-40 [facility]; [facility] Work Phone: Comment on above: PATIENT WAS FASTINGP ERFORMED BY: MENDEZ [facility] Kgopzv2360 [address] RoadDublin [place] [id number] LIPID PANEL (35268) 126 mg/dL Abnormal 0-99 [facility]; [facility] Work Phone: Comment on above: PATIENT WAS FASTINGP ERFORMED BY: MENDEZ [facility] Yuxqqe7030 [address] RoadDublin [place] [id number] LIPID PANEL (25016) 2.7 {ratio} Normal 0.0-3.6 [facility]; [facility] Work Phone: Comment on above: LDL/HDL Ratio Men Wo men 1/2 Avg.Risk 1.0 1.5 Avg.Risk 3.6 3.2 2X Avg.Risk 6.2 5.0 3X Avg.Risk 8.0 6.1 PATIENT WAS FASTINGP ERFORMED BY: CB [facility] Iprhpw8870 [address] RoadDublin [place] [id number] METABOLIC PANEL, COMPREHENSI VE (62796)Ordered By: Dry Cleaner Apprentice on 01-18-2021 Albumin [Mass/Vol] 4.6 g/dL Normal 3.8-4.9 [facility]; [facility] Work Phone: Comment on above: PATIENT WAS FASTINGP ERFORMED BY: CB [facility] Mkcgjw6163 [address] RoadDublin [place] [id number] Albumin/Globulin [Mass ratio] 1.5 {ratio} Normal 1.2-2.2 [facility]; [facility] Work Phone: Comment on above: PATIENT WAS FASTINGP ERFORMED BY: MENDEZ CaroleBrittany Nbrppk8953 [address] Roadbl[address] [place] [id number] ALP [Catalytic activity/Vol] 58 U/L Normal 44-121 [facility]; [facility] Work Phone: Comment on above: Please note refere nce interval change PATIENT WAS FASTINGP ERFORMED BY: MENDEZ [facility] Weihza9086 [address] [facility] [place] [id number] ALT [Catalytic activity/Vol] 24 U/L Normal 0-44 [facility]; [facility] Work Phone: Comment on above: PATIENT WAS FASTINGP ERFORMED BY: MENDEZ Lee Qmenlq9108 [address] [facility] [id number] AST [Catalytic activity/Vol] 20 U/L Normal 0-40 [facility]; [facility] Work Phone: Comment on above: PATIENT WAS FASTINGP ERFORMED BY: MENDEZ Dudleylin6370 [address] [facility] [id number] Bilirubin [Mass/Vol] 0.4 mg/dL Normal 0.0-1.2 [facility] rehensive Internal Medicine; [facility] Work Phone: Comment on above: PATIENT WAS FASTINGP ERFORMED BY: MENDEZ LamSaint [facility] Dxknux7651 [address] [facility] [id number] Calcium [Mass/Vol] 9.5 mg/dL Normal 8.7-10.2 [facility]; [facility] Work Phone: Comment on above: PATIENT WAS FASTINGP ERFORMED BY: MENDEZ LabBrittany Cwoxqp7722 [address] [facility]in [place] [id number] Chloride [Moles/Vol] 101 mmol/L Normal 96-106 Comp rehensive Internal Medicine; [facility] Work Phone: Comment on above: PATIENT WAS FASTINGP ERFORMED BY: MENDEZ Bellamy Irlcir5164 [facility] [id number] CO2 [Moles/Vol] 23 mmol/L Normal 20-29 [facility] Internal Medicine; [facility] Work Phone: Comment on above: PATIENT WAS FASTINGP ERFORMED BY: MENDEZ Dudleylin6370 [facility] [id number] Creatinine [Mass/Vol] 0.88 mg/dL Normal 0.76-1.27 [facility]; [facility] Work Phone: Comment on above: PATIENT WAS FASTINGP ERFORMED BY: Zaynab Rdluhe3499 [facility] [id number] GFR/1.73 sq M.predicted among blacks CKD-EPI (S/P/Bld) [Vol rate/Area] 113 mL/min/1.73 Normal [facility]; [facility] Work Phone: Comment on above: In accordance with recommendations from the NKF-ASN Task force, [facility] is in the process of updating its eGFR calculation to the 2020 CKD-EPI creatinine equation that estimates kidney function without a race variable. PATIENT WAS FASTINGP ERFORMED BY: MENDEZ Dudleylin6370 [facility] [id number] GFR/1.73 sq M.predicted among non-blacks CKD-EPI (S/P/Bld) [Vol rate/Area] 98 mL/min/1.73 Normal [facility]; [facility] Work Phone: Comment on above: PATIENT WAS FASTINGP ERFORMED BY: [facility] Fsaspp2412 [facility] [id number] Globulin (S) [Mass/Vol] 3.0 g/dL Normal 1.5-4.5 [facility]; [facility] Work Phone: Comment on above: PATIENT WAS FASTINGP ERFORMED BY: Zaynab Tqdqhe9967 [facility] [id number] Glucose [Mass/Vol] 116 mg/dL Abnormal 65-99 [facility]; [facility] Work Phone: Comment on above: PATIENT WAS FASTINGP ERFORMED BY: MENDEZ [facility] Wgflir4893 [address] RoadDublin [place] [id number] Potassium [Moles/Vol] 4.3 mmol/L Normal 3.5-5.2 [facility] prehensive Internal Medicine; [facility] Work Phone: Comment on above: PATIENT WAS FASTINGP ERFORMED BY: CB [facility] Czsjoa2931 [address] RoadDublin [place] [id number] Protein [Mass/Vol] 7.6 g/dL Normal 6.0-8.5 [facility]; [facility] Work Phone: Comment on above: PATIENT WAS FASTINGP ERFORMED BY: CB [facility] Rlqgrd9179 [address] RoadDublin [place] [id number] Sodium [Moles/Vol] 140 mmol/L Normal 134-144 [facility]; [facility] Work Phone: Comment on above: PATIENT WAS FASTINGP ERFORMED BY: MENDEZ [facility] Zmcxou6557 [address] RoadDublin [place] [id number] Urea nitrogen [Mass/Vol] 11 mg/dL Normal 6-24 [facility]; [facility] Work Phone: Comment on above: PATIENT WAS FASTINGP ERFORMED BY: MENDEZ [facility] Eugoxb4817 [address] RoadDublin [place] [id number] Urea nitrogen/Creatinine [Mass ratio] 13 mg/mg Normal 9-20 [facility]; [facility] Work Phone: Comment on above: PATIENT WAS FASTINGP ERFORMED BY: CB [facility] Phvyol9821 [address] RoadDublin [place] [id number] MICROALBUMINOrdered By: Syst em Chief Innovation Officer on 01-18-2021 Albumin DL <= 20 mg/L (U) [Mass/Vol] 16.9 ug/mL Normal [facility]; [facility] Work Phone: Comment on above: PATIENT WAS FASTINGP ERFORMED BY: CB [facility] Xgholz4615 [address] RoadDublin [place] [id number] Albumin/Creatinine (U) [Mass ratio] 9 {mg/g_creat} Normal 0-29 [facility]; [facility] Work Phone: Comment on above: Normal: 0 - 29 Moder ately increased: 30 - 300 Severely increased: >300 PATIENT WAS FASTINGP ERFORMED BY: MENDEZ Dudleylin6370 [address] RoadDublin [place] [id number] Creatinine (U) [Mass/Vol] 188.8 mg/dL Normal [facility]; [facility] Work Phone: Comment on above: PATIENT WAS FASTINGP ERFORMED BY: MENDEZ LabBrittany Jsqpgh0900 [address] RoadDublin [place] [id number] TSH ([id number])Ordered By: [employer] m Chief Innovation Officer on 01-18-2021 TSH Qn 3.600 {uIU/mL} Normal 0.450-4.50 0 [facility]; [facility] Work Phone: Comment on above: PATIENT WAS FASTINGP ERFORMED BY: MENDEZ Lee Ywtnmy4313 [address] RoadDublin [place] [id number] URINALYSIS, W/ MICRO ([id number]) Ordered By: Dry Cleaner Apprentice on 01-18-2021 Appearance (U) Clear Normal Comprehens tyron Internal Medicine; [facility] Work Phone: Comment on above: PATIENT WAS FASTINGP ERFORMED BY: MENDEZ Dudleylin6370 [address] RoadDublin [place] [id number] Bilirubin Ql (U) Negative Normal Comprehe nsive Internal Medicine; [facility] Work Phone: Comment on above: PATIENT WAS FASTINGP ERFORMED BY: MENDEZ LabGabbie DudleyLrcfud9713 [address] RoadDublin [place] [id number] Color (U) Yellow Normal [facility]; [facility] Work Phone: Comment on above: PATIENT WAS FASTINGP ERFORMED BY: MENDEZ LabBrittany Zevugr0234 [address] RoadDublin [place] [id number] Glucose Ql (U) Negative Normal Comprehens tyron Internal Medicine; [facility] Work Phone: Comment on above: PATIENT WAS FASTINGP ERFORMED BY: CB [facility] Lydkiv0283 [address] RoadDublin [place] [id number] Hemoglobin Ql (U) Negative Normal Compreh ensive Internal Medicine; [facility] Work Phone: Comment on above: PATIENT WAS FASTINGP ERFORMED BY: MENDEZ LabBrittanyrp Haxrde7230 [address] RoadDublin [place] [id number] Ketones Ql (U) Trace Abnormal Comprehens tyron Internal Medicine; [facility] Work Phone: Comment on above: PATIENT WAS FASTINGP ERFORMED BY: [facility] Oudjpv2972 [address] RoadDublin [place] [id number] Leukocyte esterase Test strip Ql (U) Negative Normal [facility]; [facility] Work Phone: Comment on above: PATIENT WAS FASTINGP ERFORMED BY: MENDEZ [facility] Uykyrt7028 [address] RoadDublin [place] [id number] Microscopic observation LM Nom (Urine sed) MICRON Normal [facility]; [facility] Work Phone: Comment on above: Microscopic follows if indicated. PATIENT WAS FASTINGP ERFORMED BY: [facility] Svxvaj2847 [address] RoadDublin [place] [id number] Microscopic observation LM Nom (Urine sed) See below: Normal [facility]; [facility] Work Phone: Comment on above: Microscopic was giovanni cated and was performed. PATIENT WAS FASTINGP ERFORMED BY: [facility] Kgrpsb4337 Al[address]zo RoadDublin [place] [id number] Nitrite Ql (U) Negative Normal Comprehens tyron [facility]; [facility] Work Phone: Comment on above: PATIENT WAS FASTINGP ERFORMED BY: [facility] Jlehgd6523 [address]zo RoadDublin [place] [id number] pH (U) 5.5 [pH] Normal 5.0-7.5 [facility]; [facility] Work Phone: Comment on above: PATIENT WAS FASTINGP ERFORMED BY: [facility] Jdajtd3185 Al[address]zo RoadDublin [place] [id number] Protein Ql (U) Trace Normal Comprehens [facility]; [facility] Work Phone: Comment on above: PATIENT WAS FASTINGP ERFORMED BY: [facility] 2 Ykmfiq8523 [address] On Dem[facility] TherapeuticsAt[facility]cy [id number] Specific gravity (U) [Rel density] 1.021 1 Normal 1.005-1.03 0 [facility]; [facility] Work Phone: Comment on above: PATIENT WAS FASTINGP ERFORMED BY: [facility] Qcozcp8335 [address] On Dem[facility] TherapeuticsAt[facility]cy [id number] Urobilinogen (U) [Mass/Vol] 0.2 mg/dL Normal 0.2-1.0 [facility]; [facility] Work Phone: Comment on above: PATIENT WAS FASTINGP ERFORMED BY: [facility] Zxvntn6860 [address] On Dem[facility] TherapeuticsAt[facility] Health [facility]cy [id number] Blood Glucose , Office ([phone])Ordered By: Angelica Meneses on 10-26-2020 Glucose Glucometer (BldC) [Moles/Vol] 148 1 Normal [facility]; [facility] Work Phone: HgA1C , Office ([phone])Ordere d By: Angelica Meneses on 10-26-2020 HbA1c (Bld) [Mass fraction] 6.1 % Normal 4.6 - 7.1 [facility]; [facility] Work Phone: Blood Glucose , Office ([phone])Ordered By: Nancy Young on 07-20-2020 Glucose Glucometer (BldC) [Moles/Vol] 151 1 Normal [facility]; [facility] Work Phone: HgA1C , Office ([phone])Ordere d By: Nancy Young on 07-20-2020 HbA1c (Bld) [Mass fraction] 7.1 % Normal 4.6 - 7.1 [facility]; [facility] Work Phone: CALCIFIDIOL ([phone]) VIT D 25 Ordered By: Dry Cleaner Apprentice on 07-06-2020 25-hydroxyvitamin D [Mass/Vol] 34.8 ng/mL Normal 30.0-100.0 [facility]; [facility] Work Phone: Comment on above: Vitamin D deficiency has been defined by the [place] ofMedicine and an Endocrine Society practice guideline as alevel of serum 25-OH vitamin D less than 20 ng/mL (1,2).The Endocrine Society went on to further define vitamin Dinsufficiency as a level between 21 and 29 ng/mL (2).1. IOM ([place] of Medicine). 2010. Dietary reference intakes for calcium and D. [place]: The National Academies Press.2. Magno MF, Do MILES, Jos PRATER, et al. Evaluation, treatment, and prevention of vitamin D deficiency: an Endocrine Society clinical practice guideline. JCEM. 2010; 96(7):1911-30. Test(s) 179139-YLH-P ; 208943-EMU-D; 080754-Fxehhcpsakyxm; 339139-Cqzjnroesuy, Total; 807813-IUV-F (Total); 041984-Ukacb LDL-P; 028266-JFJ Size; 172366-QJ-YH Scorewas developed and its performance characteristics determinedby [employer]. It has not been cleared or approved by the Foodand Drug Administration.PATIENT WAS FASTINGPERFORMED BY: [employer] Zmlfncfytg9111 [facility] [id number] BY: Fididel Zmlvlr4441 [facility] [id number] CBC W/AUTO DIFF WBC (09759)O rdered By: Dry Cleaner Apprentice on 07-06-2020 Basophils (Bld) [#/Vol] 0.0 10*3/uL Normal 0.0-0.2 [facility]; [facility] Work Phone: Comment on above: Test(s) 816165-PGQ-T ; 051999-OTJ-M; 234836-Vregoleknjblt; 506235-Yhysqqrfcsk, Total; 391280-AFD-H (Total); 481347-Cnzcx LDL-P; 543831-GKA Size; 373238-HG-BZ Scorewas developed and its performance characteristics determinedby [employer]. It has not been cleared or approved by the Foodand Drug Administration.PATIENT WAS FASTINGPERFORMED BY: BN [facility] [address] [id number] BY: FOURward Thought Meeazf3425 [facility] [id number] Basophils/100 WBC (Bld) 1 % Normal [facility]; [facility] Work Phone: Comment on above: Test(s) 850464-CEC-Z ; 229880-QIQ-F; 523399-Ggdwazogmtdpl; 215633-Iqprehljowg, Total; 620381-BIP-B (Total); 796296-Nssnk LDL-P; 444819-MJU Size; 516439-QV-TR Scorewas developed and its performance characteristics determinedby [employer]. It has not been cleared or approved by the Foodand Drug Administration.PATIENT WAS FASTINGPERFORMED BY: [employer] [address] [id number] BY: GetNinjas70 [facility] [id number] Eosinophils (Bld) [#/Vol] 0.1 10*3/uL Normal 0.0-0.4 [facility]; [facility] Work Phone: Comment on above: Test(s) 428375-KNB-Y ; 019521-DRM-B; 207724-Vbhoxxstuatnu; 791970-Bhfdgaryuki, Total; 657793-QCC-G (Total); 347883-Kzswi LDL-P; 312526-LTF Size; 962380-UE-SG Scorewas developed and its performance characteristics determinedby [employer]. It has not been cleared or approved by the Foodand Drug Administration.PATIENT WAS FASTINGPERFORMED BY: [employer] [address] [id number] BY: FOURward ThoughtRaritan Bay Medical CenterByrtop7911 [facility] [id number] Eosinophils/100 WBC (Bld) 2 % Normal [facility]; [facility] Work Phone: Comment on above: Test(s) 949025-MVH-E ; 974169-JSJ-L; 261533-Wybqjishdinwx; 950219-Nucseornvtz, Total; 131270-GQA-Q (Total); 341890-Iutbm LDL-P; 100307-JTL Size; 364187-XT-XE Scorewas developed and its performance characteristics determinedby [employer]. It has not been cleared or approved by the Foodand Drug Administration.PATIENT WAS FASTINGPERFORMED BY: [facility] [address] [id number] BY: Conect[employer] 2 Vftckq0190 [facility] QuadAtrium Health [facility] [id number] Erythrocyte distribution width (RBC) [Ratio] 13.4 % Normal 11.6-15.4 [facility]; [facility] Work Phone: Comment on above: Test(s) 656622-PIU-U ; 670190-DOV-A; 158958-Yydrxphnmbznt; 341620-Urdcdxjcptr, Total; 041772-RIN-D (Total); 375694-Rvwxs LDL-P; 007674-XII Size; 243740-TD-DE Scorewas developed and its performance characteristics determinedby [employer]. It has not been cleared or approved by the [employer] Drug Administration.PATIENT WAS FASTINGPERFORMED BY: [employer] [address] [id number] BY: RetiDiag6370 [address] On Dem[facility] TherapeuticsAt[facility] Health [facility]cy [id number] Hematocrit (Bld) [Volume fraction] 43.5 % Normal 37.5-51.0 [facility]; [facility] Work Phone: Comment on above: Test(s) 658325-EIG-R ; 628953-AOQ-M; 155091-Fdvrctniuwdov; 926840-Hwreuupwyfz, Total; 881181-EKP-Y (Total); 301243-Mmche LDL-P; 195918-GBK Size; 343008-HQ-WU Scorewas developed and its performance characteristics determinedby [employer]. It has not been cleared or approved by the Foodand Drug Administration.PATIENT WAS FASTINGPERFORMED BY: [facility] [address] [id number] BY: FOURward Thought Knypam6983 [facility] [id number] Hemoglobin (Bld) [Mass/Vol] 15.1 g/dL Normal 13.0-17.7 [facility]; [facility] Work Phone: Comment on above: Test(s) 099605-GSM-S ; 680888-ELE-Y; 788861-Ixrhuzpfdkbhr; 719445-Xvxbwwwjbtd, Total; 548820-NOT-S (Total); 148425-Pourw LDL-P; 205740-QWQ Size; 943853-HZ-AI Scorewas developed and its performance characteristics determinedby [employer]. It has not been cleared or approved by the Foodand Drug Administration.PATIENT WAS FASTINGPERFORMED BY: Mophie[address] [id number] BY: Checkr70 [facility] HospitalPando NetworksAtrium Health W[facility]haw [id number] Immature granulocytes (Bld) [#/Vol] 0.0 10*3/uL Normal 0.0-0.1 [facility]; [facility] Work Phone: Comment on above: Test(s) 540206-KHL-R ; 579084-HBC-A; 869832-Qdwkqlgpyhvnh; 401191-Hvpiklhmess, Total; 832927-IKW-P (Total); 713980-Isdvg LDL-P; 260750-CER Size; 652355-BU-TS Scorewas developed and its performance characteristics determinedby [employer]. It has not been cleared or approved by the Foodand Drug Administration.PATIENT WAS FASTINGPERFORMED BY: [employer] [address] [id number] BY: netFactor Zarbjz7233 [facility] [id number] Immature granulocytes/100 WBC (Bld) 0 % Normal [facility]; [facility] Work Phone: Comment on above: Test(s) 530837-BDN-D ; 607013-JKO-A; 736096-Gmijsrguzhdlq; 693259-Ytstdmtcitb, Total; 034575-VGW-A (Total); 490977-Lhkxx LDL-P; 431097-EHA Size; 249433-LZ-LX Scorewas developed and its performance characteristics determinedby [employer]. It has not been cleared or approved by the Foodand Drug Administration.PATIENT WAS FASTINGPERFORMED BY: [employer] [address] [id number] BY: GetNinjas70 [facility] [id number] Lymphocytes (Bld) [#/Vol] 1.7 10*3/uL Normal 0.7-3.1 [facility]; [facility] Work Phone: Comment on above: Test(s) 318188-VCG-U ; 384708-OWY-J; 078587-Vxdyxcsoioyyt; 564452-Yuihryevfzl, Total; 863077-MNC-P (Total); 640914-Dalxj LDL-P; 576637-ZYN Size; 651864-DN-IH Scorewas developed and its performance characteristics determinedby [employer]. It has not been cleared or approved by the Foodand Drug Administration.PATIENT WAS FASTINGPERFORMED BY: [employer] [address] [id number] BY: GetNinjas70 vocaltapAtrium Health Waxhaw [id number] Lymphocytes/100 WBC (Bld) 30 % Normal [facility]; [facility] Work Phone: Comment on above: Test(s) 158518-NSW-Y ; 465687-VSD-P; 327288-Cbepjwanlsvqh; 871881-Ipbmjejcdbm, Total; 019646-TRI-M (Total); 478242-Thutc LDL-P; 868380-EGD Size; 975441-LA-IV Scorewas developed and its performance characteristics determinedby [employer]. It has not been cleared or approved by the Foodand Drug Administration.PATIENT WAS FASTINGPERFORMED BY: [employer] [address] [id number] BY: RetiDiag6370 [facility] [id number] MCH (RBC) [Entitic mass] 29.5 pg Normal 26.6-33.0 [facility]; [facility] Work Phone: Comment on above: Test(s) 130754-CSK-J ; 931129-UBE-N; 987107-Nkkkeeanfbtmi; 614207-Wohpoiezzha, Total; 768196-RFS-D (Total); 844743-Rzaoj LDL-P; 813438-QWB Size; 886043-LV-UG Scorewas developed and its performance characteristics determinedby [employer]. It has not been cleared or approved by the Foodand Drug Administration.PATIENT WAS FASTINGPERFORMED BY: [employer] [address] [id number] BY: GetNinjas70 [facility] QuadAtrium Health [facility]haw [id number] MCHC (RBC) [Mass/Vol] 34.7 g/dL Normal 31.5-35.7 [facility]; [facility] Work Phone: Comment on above: Test(s) 011073-PDV-T ; 337793-YKL-U; 630824-Rtrrwlloqrdyy; 706569-Timbollgjpx, Total; 635136-QCL-Q (Total); 818412-Llcmg LDL-P; 528170-SNF Size; 807302-PI-TA Scorewas developed and its performance characteristics determinedby [employer]. It has not been cleared or approved by the Foodand Drug Administration.PATIENT WAS FASTINGPERFORMED BY: [employer] [address] [id number] BY: RetiDiag6370 [facility] [id number] MCV (RBC) [Entitic vol] 85 fL Normal 79-97 [facility]; [facility] Work Phone: Comment on above: Test(s) 957300-NQV-K ; 173848-TYW-A; 261689-Gunzethaqrmtz; 001305-Nwybkegnebe, Total; 653748-CFI-B (Total); 487339-Lpfom LDL-P; 465836-ZVG Size; 136006-LK-VP Scorewas developed and its performance characteristics determinedby [employer]. It has not been cleared or approved by the Foodand Drug Administration.PATIENT WAS FASTINGPERFORMED BY: [employer] [address] [id number] BY: FOURward Thought Haagaa4195 vocaltapAtrium Health Waxhaw [id number] Monocytes (Bld) [#/Vol] 0.3 10*3/uL Normal 0.1-0.9 [facility]; [facility] Work Phone: Comment on above: Test(s) 366091-XDQ-I ; 992432-NBE-O; 324016-Tnyqnevnlktfe; 408777-Hckebtgwepg, Total; 241247-LVO-Z (Total); 735112-Mprzi LDL-P; 964281-ILY Size; 328831-VE-QE Scorewas developed and its performance characteristics determinedby [employer]. It has not been cleared or approved by the Foodand Drug Administration.PATIENT WAS FASTINGPERFORMED BY: Mophie[address] [id number] BY: RetiDiag6370 [facility] QuadAtrium Health W[facility]haw [id number] Monocytes/100 WBC (Bld) 6 % Normal [facility]; [facility] Work Phone: Comment on above: Test(s) 897939-DII-W ; 101966-KDU-O; 880939-Rfopefcecyjrt; 799544-Dxfqehpyuvi, Total; 430443-UVX-H (Total); 684950-Wacrp LDL-P; 811082-CLB Size; 522032-FE-DW Scorewas developed and its performance characteristics determinedby [employer]. It has not been cleared or approved by the Foodand Drug Administration.PATIENT WAS FASTINGPERFORMED BY: [employer] [address] [id number] BY: FOURward Thought Yifhgr4434 [facility] [id number] Neutrophils (Bld) [#/Vol] 3.5 10*3/uL Normal 1.4-7.0 [facility]; [facility] Work Phone: Comment on above: Test(s) 682890-NMJ-Z ; 446755-GDJ-X; 381176-Pkbtjtbgcvvmc; 774129-Mlbycfnpive, Total; 387095-PHD-X (Total); 269989-Iebvw LDL-P; 509604-YCE Size; 862336-RX-AW Scorewas developed and its performance characteristics determinedby [employer]. It has not been cleared or approved by the Foodand Drug Administration.PATIENT WAS FASTINGPERFORMED BY: Mophie[address] [id number] BY: netFactor Dcgiaa3812 [facility] [id number] Neutrophils/100 WBC (Bld) 61 % Normal [facility]; [facility] Work Phone: Comment on above: Test(s) 879048-SXJ-E ; 375008-GRB-D; 751385-Csheehzjtodgh; 346540-Lwayyaiwdby, Total; 217843-GXG-M (Total); 713032-Cdhuv LDL-P; 111713-KKT Size; 316859-NA-IX Scorewas developed and its performance characteristics determinedby [employer]. It has not been cleared or approved by the Foodand Drug Administration.PATIENT WAS FASTINGPERFORMED BY: Mophie[address] [id number] BY: netFactor Abhpyp2755 [facility] [id number] Platelets (Bld) [#/Vol] 278 10*3/uL Normal 150-450 [facility]; [facility] Work Phone: Comment on above: Test(s) 460106-MTF-U ; 466916-BZQ-I; 316650-Wniqlvvuaehle; 170300-Axaawllnwty, Total; 296410-IVI-H (Total); 854365-Pvtgj LDL-P; 428204-EKD Size; 931256-NK-GB Scorewas developed and its performance characteristics determinedby [employer]. It has not been cleared or approved by the Foodand Drug Administration.PATIENT WAS FASTINGPERFORMED BY: Mophie[address] [id number] BY: RetiDiag6370 [facility] [id number] RBC (Bld) [#/Vol] 5.11 10*6/uL Normal 4.14-5.80 [facility] Internal [facility]; [facility] Work Phone: Comment on above: Test(s) 666063-VHN-Q ; 112650-GNO-A; 420560-Lcgkusjcmoayt; 446360-Gsxhcawuxal, Total; 879997-RUS-L (Total); 789700-Rckir LDL-P; 673048-VIX Size; 691483-VW-CW Scorewas developed and its performance characteristics determinedby [employer]. It has not been cleared or approved by the Foodand Drug Administration.PATIENT WAS FASTINGPERFORMED BY: Mophie[address] [id number] BY: RetiDiag6370 [facility] [id number] WBC (Bld) [#/Vol] 5.6 10*3/uL Normal 3.4-10.8 [facility]; [facility] Work Phone: Comment on above: Test(s) 426825-APA-E ; 919878-JBF-D; 872851-Wmamyugbhhrly; 180850-Lteybvjljwt, Total; 128533-XSJ-M (Total); 654452-Mzlxt LDL-P; 081901-XMQ Size; 324730-DM-WV Scorewas developed and its performance characteristics determinedby [employer]. It has not been cleared or approved by the Foodand Drug Administration.PATIENT WAS FASTINGPERFORMED BY: [employer] [address] [id number] BY: RetiDiag6370 [facility] [id number] METABOLIC PANEL, COMPREHENSI VE (23047)Ordered By: Dry Cleaner Apprentice on 07-06-2020 Albumin [Mass/Vol] 4.5 g/dL Normal 3.8-4.9 [facility]; [facility] Work Phone: Comment on above: Test(s) 520207-ABH-P ; 003838-REB-L; 866849-Fcpsqgctmzovc; 084854-Ekbihhxrnfj, Total; 515101-TSK-U (Total); 786647-Nzrtp LDL-P; 098719-JTO Size; 127508-WA-WA Scorewas developed and its performance characteristics determinedby [employer]. It has not been cleared or approved by the Foodand Drug Administration.PATIENT WAS FASTINGPERFORMED BY: Mophie[address] [id number] BY: GetNinjas70 DLSAtrium Health Mercy [id number] Albumin/Globulin [Mass ratio] 1.7 {ratio} Normal 1.2-2.2 [facility]; [facility] Work Phone: Comment on above: Test(s) 936522-HYQ-L ; 089787-KXN-Q; 227891-Bbnqvmrjurxlp; 453935-Jkpgpmgkzwc, Total; 263529-RDQ-Q (Total); 031867-Nwbrw LDL-P; 311017-DWW Size; 242734-TR-VS Scorewas developed and its performance characteristics determinedby [employer]. It has not been cleared or approved by the Foodand Drug Administration.PATIENT WAS FASTINGPERFORMED BY: [employer] [address] [id number] BY: RetiDiag6370 DLSAtrium Health Mercy [id number] ALP [Catalytic activity/Vol] 59 U/L Normal 39-117 [...] 48 - 121 48 - 121 Test(s) 082548-NZG-W ; 795540-MGQ-I; 451435-Uedjbkjdvxenq; 350464-Slzolsdrmvs, Total; 006474-EKX-X (Total); 012271-Cicic LDL-P; 938043-OUA Size; 564133-EG-IA Scorewas developed and its performance characteristics determinedby [employer]. It has not been cleared or approved by the Foodand Drug Administration.PATIENT WAS FASTINGPERFORMED BY: Mophie[address] [id number] BY: RetiDiag6370 [facility] [id number] ALT [Catalytic activity/Vol] 83 U/L Abnormal 0-44 [facility]; [facility] Work Phone: Comment on above: Test(s) 561275-FEX-U ; 190026-TLI-H; 303045-Kvokinkbuixpd; 677008-Dxihzrzuurj, Total; 052692-MCG-B (Total); 343510-Nvxgw LDL-P; 179383-EKL Size; 076622-UZ-JO Scorewas developed and its performance characteristics determinedby [employer]. It has not been cleared or approved by the Foodand Drug Administration.PATIENT WAS FASTINGPERFORMED BY: [employer] [address] [id number] BY: netFactor Zaqvwl4151 [facility] [id number] AST [Catalytic activity/Vol] 44 U/L Abnormal 0-40 [facility]; [facility] Work Phone: Comment on above: Test(s) 702349-WLW-Q ; 758264-FTE-W; 956220-Kjxsbvphftbyd; 379146-Ptugtemorwj, Total; 305177-WXQ-R (Total); 340511-Tmupw LDL-P; 190860-BMJ Size; 839267-YZ-TJ Scorewas developed and its performance characteristics determinedby [employer]. It has not been cleared or approved by the Foodand Drug Administration.PATIENT WAS FASTINGPERFORMED BY: Conecta [address] [id number] BY: Conecta 2[facility] HospitalXqzxfg1660 [facility] [id number] Bilirubin [Mass/Vol] 0.4 mg/dL Normal 0.0-1.2 [facility] Internal [facility]; [facility] Work Phone: Comment on above: Test(s) 079462-BKL-N ; 522638-QGJ-H; 620509-Ljwfdgcmaldem; 953792-Kebkykpywex, Total; 839224-SWM-B (Total); 946931-Vporb LDL-P; 607663-QGP Size; 293048-QI-SD Scorewas developed and its performance characteristics determinedby [employer]. It has not been cleared or approved by the Foodand Drug Administration.PATIENT WAS FASTINGPERFORMED BY: Conecta [address] [id number] BY: Conecta 2 Cjlngl9557 [facility] [id number] Calcium [Mass/Vol] 9.5 mg/dL Normal 8.7-10.2 [facility]; [facility] Work Phone: Comment on above: Test(s) 861597-WJM-D ; 103989-JOJ-G; 919689-Yqemvqxpsrhua; 733736-Gmrgumpiyru, Total; 054155-VUS-V (Total); 777467-Tzqop LDL-P; 723127-DRL Size; 849911-TA-AS Scorewas developed and its performance characteristics determinedby [employer]. It has not been cleared or approved by the Foodand Drug Administration.PATIENT WAS FASTINGPERFORMED BY: Conecta [address] [id number] BY: Conecta 2R[facility]itan Bay Medical CenterGaumsu7132 [facility] [id number] Chloride [Moles/Vol] 103 mmol/L Normal 96-106 [facility]; [facility] Work Phone: Comment on above: Test(s) 665250-IHR-A ; 310147-PMX-A; 828578-Iokhzajcczuze; 263344-Sfuseoiwztl, Total; 051481-OYV-E (Total); 190251-Jaojp LDL-P; 829526-OHO Size; 237187-JT-HS Scorewas developed and its performance characteristics determinedby [employer]. It has not been cleared or approved by the Foodand Drug Administration.PATIENT WAS FASTINGPERFORMED BY: [employer] [address] [id number] BY: GetNinjas70 [facility] [id number] CO2 [Moles/Vol] 21 mmol/L Normal 20-29 [facility] Internal Medicine; [facility] Work Phone: Comment on above: Test(s) 140029-JCC-S ; 860367-HED-I; 277891-Npzrfrzpyzepc; 579126-Nzccbkagthz, Total; 930909-QPE-D (Total); 910344-Verxn LDL-P; 664480-AEL Size; 654599-QY-IA Scorewas developed and its performance characteristics determinedby [employer]. It has not been cleared or approved by the Foodand Drug Administration.PATIENT WAS FASTINGPERFORMED BY: [employer] [address] [id number] BY: RetiDiag6370 [facility] [id number] Creatinine [Mass/Vol] 0.97 mg/dL Normal 0.76-1.27 [facility] Internal Medicine; [facility] Work Phone: Comment on above: Test(s) 262727-FFK-I ; 371669-WIM-I; 638866-Xaorquwsscfma; 211615-Ucnhagcbvch, Total; 880948-FAN-Y (Total); 392172-Znltu LDL-P; 864466-ZIR Size; 983273-FP-AM Scorewas developed and its performance characteristics determinedby [employer]. It has not been cleared or approved by the Foodand Drug Administration.PATIENT WAS FASTINGPERFORMED BY: Fididel [address] [id number] BY: Conecta 2Raritan Bay Medical CenterAfxrwq4838 [facility] [id number] GFR/1.73 sq M.predicted among blacks CKD-EPI (S/P/Bld) [Vol rate/Area] 103 mL/min/1.73 Normal [facility]; [facility] Work Phone: Comment on above: [facility] currently reports eGFR in compliance with the current recommendations of the National Kidney Foundation. [facility] will update reporting as new guidelines are published from the NKF-ASN Task force. Test(s) 014174-BGK-J ; 012519-JYN-Q; 690824-Jnwmafkfdanvj; 726196-Dvotuettvvm, Total; 881082-XOK-K (Total); 608458-Bpjuf LDL-P; 971406-YLM Size; 525878-QO-TG Scorewas developed and its performance characteristics determinedby [employer]. It has not been cleared or approved by the Foodand Drug Administration.PATIENT WAS FASTINGPERFORMED BY: [employer] [address] [id number] BY: Conecta 2R[facility]itan Bay Medical CenterSdobmn2771 [facility] [id number] GFR/1.73 sq M.predicted among non-blacks CKD-EPI (S/P/Bld) [Vol rate/Area] 89 mL/min/1.73 Normal [facility]; [facility] Work Phone: Comment on above: Test(s) 053340-CRM-V ; 929702-MGL-Z; 254913-Ooiwkwdicjynb; 474211-Fyujlctqucr, Total; 502762-XYN-L (Total); 182396-Jpvur LDL-P; 717005-EUE Size; 300707-RY-HD Scorewas developed and its performance characteristics determinedby [employer]. It has not been cleared or approved by the Foodand Drug Administration.PATIENT WAS FASTINGPERFORMED BY: Fididel [address] [id number] BY: FOURward Thought Wulywi5180 [facility] [id number] Globulin (S) [Mass/Vol] 2.7 g/dL Normal 1.5-4.5 [facility] Internal Medicine; [facility] Work Phone: Comment on above: Test(s) 331368-HYC-P ; 560131-ICQ-I; 434519-Rqwzqawzrghjp; 501390-Oqrlcxwubfd, Total; 882522-UHR-X (Total); 937723-Cpjsi LDL-P; 372885-EZA Size; 729856-ZR-QM Scorewas developed and its performance characteristics determinedby [employer]. It has not been cleared or approved by the Foodand Drug Administration.PATIENT WAS FASTINGPERFORMED BY: [employer] [address] [id number] BY: RetiDiag6370 [facility] [id number] Glucose [Mass/Vol] 145 mg/dL Abnormal 65-99 [facility] Internal [facility]; [facility] Work Phone: Comment on above: Test(s) 866787-AKB-W ; 845593-MCE-P; 134148-Pnrmuqfxlwpyy; 398847-Rduhbovnetr, Total; 214522-VAN-M (Total); 645688-Yqhfc LDL-P; 230798-HXS Size; 202754-XF-QX Scorewas developed and its performance characteristics determinedby [employer]. It has not been cleared or approved by the Foodand Drug Administration.PATIENT WAS FASTINGPERFORMED BY: [employer] [address] [id number] BY: FOURward ThoughtRaritan Bay Medical CenterYawxlu0606 [facility] [id number] Potassium [Moles/Vol] 4.4 mmol/L Normal 3.5-5.2 [facility] prehensive Internal Medicine; [facility] Work Phone: Comment on above: Test(s) 138971-ZID-H ; 130059-EGO-J; 226707-Wtlrbijomlgru; 416564-Rcswtbynjqg, Total; 149888-ZPK-V (Total); 522858-Ymgjj LDL-P; 445768-MXV Size; 238880-DK-VD Scorewas developed and its performance characteristics determinedby [employer]. It has not been cleared or approved by the Foodand Drug Administration.PATIENT WAS FASTINGPERFORMED BY: Gainsight[address] [id number] BY: Conecta 2 Agnzsq4550 [facility] On Demand TherapeuticsAtrium Health Mercy [id number] Protein [Mass/Vol] 7.2 g/dL Normal 6.0-8.5 [facility]; [facility] Work Phone: Comment on above: Test(s) 263832-KHC-V ; 420318-UZS-L; 681162-Pxqkodoohgpao; 589341-Dkrzdwswdhp, Total; 644261-LEW-V (Total); 857798-Akdtz LDL-P; 376029-HVI Size; 457405-BV-SU Scorewas developed and its performance characteristics determinedby [employer]. It has not been cleared or approved by the Foodand Drug Administration.PATIENT WAS FASTINGPERFORMED BY: [employer] [address] [id number] BY: FOURward Thought Gjqabf0687 [facility] On Demand TherapeuticsAtrium Health Mercy [id number] Sodium [Moles/Vol] 141 mmol/L Normal 134-144 [facility]; [facility] Work Phone: Comment on above: Test(s) 152712-VMZ-L ; 843399-AWZ-X; 075630-Wfdyrwwinhcou; 576803-Oxabonkhqrr, Total; 601393-LJO-O (Total); 141498-Gedrv LDL-P; 335990-CBA Size; 284548-SH-GP Scorewas developed and its performance characteristics determinedby [employer]. It has not been cleared or approved by the Foodand Drug Administration.PATIENT WAS FASTINGPERFORMED BY: Conecta [address] [id number] BY: FOURward Thought Xjpbxk0840 [place] On Demand TherapeuticsAtrium Health Mercy [id number] Urea nitrogen [Mass/Vol] 13 mg/dL Normal 6-24 [facility]; [facility] Work Phone: Comment on above: Test(s) 356597-TOW-I ; 963563-SXV-R; 198899-Gbqtyrscxzxsh; 262985-Ohbnemwrffk, Total; 262342-IXH-H (Total); 977437-Daefy LDL-P; 756447-MQC Size; 720181-VQ-VQ Scorewas developed and its performance characteristics determinedby [employer]. It has not been cleared or approved by the Foodand Drug Administration.PATIENT WAS FASTINGPERFORMED BY: Mophie[address] [id number] BY: GetNinjas70 [facility] [id number] Urea nitrogen/Creatinine [Mass ratio] 13 mg/mg Normal 9-20 [facility]; [facility] Work Phone: Comment on above: Test(s) 028432-LLR-D ; 384170-DDY-E; 085192-Njztabttiwkna; 139578-Spstsabpwdn, Total; 510010-JTF-N (Total); 678300-Duvhc LDL-P; 280294-OWQ Size; 939502-IW-HN Scorewas developed and its performance characteristics determinedby [employer]. It has not been cleared or approved by the Foodand Drug Administration.PATIENT WAS FASTINGPERFORMED BY: Mophie[address] [id number] BY: RetiDiag6370 [facility] [id number] MICROALBUMINOrdered By: Syst em Chief Innovation Officer on 07-06-2020 Albumin DL <= 20 mg/L (U) [Mass/Vol] 8.3 ug/mL Normal [facility]; [facility] Work Phone: Comment on above: Test(s) 840664-ONS-O ; 544311-XRV-L; 053839-Qsyeppiynblpx; 533998-Oqonrpbkwcg, Total; 372825-XPI-T (Total); 869212-Gpytb LDL-P; 049778-TMY Size; 823878-QZ-WU Scorewas developed and its performance characteristics determinedby [employer]. It has not been cleared or approved by the Foodand Drug Administration.PATIENT WAS FASTINGPERFORMED BY: [employer] [address] [id number] BY: FOURward Thought Dboodb5441 DLSAtrium Health Mercy [id number] Albumin/Creatinine (U) [Mass ratio] 7 {mg/g_creat} Normal 0-29 [facility]; [facility] Work Phone: Comment on above: Normal: 0 - 29 Moder ately increased: 30 - 300 Severely increased: >300 Test(s) 655118-UEI-R ; 880278-FQW-T; 985727-Jnaxbgbarsqnm; 668139-Mpvwfgfgngp, Total; 691277-MHF-G (Total); 440728-Bovnd LDL-P; 548592-JWJ Size; 054737-FZ-OT Scorewas developed and its performance characteristics determinedby [employer]. It has not been cleared or approved by the Foodand Drug Administration.PATIENT WAS FASTINGPERFORMED BY: [employer] [address] [id number] BY: GetNinjas70 vocaltapAtrium Health Waxhaw [id number] Creatinine (U) [Mass/Vol] 114.4 mg/dL Normal [facility]; [facility] Work Phone: Comment on above: Test(s) 007818-SRS-A ; 898017-EHT-J; 116193-Ussqygcvtgwff; 840702-Waeaujndkny, Total; 208832-BZE-E (Total); 224174-Cbobv LDL-P; 915100-IWT Size; 125888-OA-VK Scorewas developed and its performance characteristics determinedby [employer]. It has not been cleared or approved by the Foodand Drug Administration.PATIENT WAS FASTINGPERFORMED BY: [employer] [address] [id number] BY: Catchafirelin6370 [place] On Demand TherapeuticsAtrium Health Mercy [id number] NMR Profile (61552)Ordered B y: Dry Cleaner Apprentice on 07-06-2020 Cholesterol [Mass/Vol] 218 mg/dL Abnormal 100-199 [facility]; [facility] Work Phone: Comment on above: Test(s) 738690-XTO-M ; 425419-LCL-Q; 806757-Pwhkgxqbkswjj; 772767-Wiiqgcfqrgm, Total; 888356-MTU-U (Total); 131915-Ekvyo LDL-P; 740867-VWP Size; 416192-YY-TZ Scorewas developed and its performance characteristics determinedby [employer]. It has not been cleared or approved by the Foodand Drug Administration.PATIENT WAS FASTINGPERFORMED BY: [employer] [facility] [id number] BY: Apta BiosciencesAtrium Health [facility]haw [id number] Lipoprotein.alpha [Moles/Vol] 32.7 umol/L Normal [facility]; [facility] Work Phone: Comment on above: Test(s) 299641-NOI-F ; 983926-BBV-K; 743036-Qtxlqmbeqzcbe; 659779-Sbkxuzvpomi, Total; 216065-VAS-H (Total); 469452-Oqatj LDL-P; 960122-BHH Size; 522095-BZ-ZX Scorewas developed and its performance characteristics determinedby [employer]. It has not been cleared or approved by the Foodand Drug Administration.PATIENT WAS FASTINGPERFORMED BY: [employer] [facility] [id number] BY: GetNinjas70 vocaltapAtrium Health Waxhaw [id number] Lipoprotein.beta.subp article [Entitic length] 19.7 nm Abnormal [facility] [...] not afterLDL-P is taken into account. Test(s) 414606-HRC-Y ; 196790-YEL-L; 446226-Byppmfeyozgtv; 864608-Qgsfdbijmey, Total; 441331-NFR-C (Total); 207872-Kowfc LDL-P; 332407-CYV Size; 492131-NM-SK Scorewas developed and its performance characteristics determinedby [employer]. It has not been cleared or approved by the Foodand Drug Administration.PATIENT WAS FASTINGPERFORMED BY: Fididel [address] [id number] BY: [employer] Rafmjy0148 [facility] [id number] Lipoprotein.beta.subp article [Moles/Vol] 1833 nmol/L Abnormal Comprehensiv e Internal Medicine; [facility] Work Phone: Comment on above: Low < 1000 Moderate 1000 - 1299 Borderline-High 1300 - 1599 High 1600 - 2000 Very High > 2000 Test(s) 148894-AAP-R ; 533373-IHM-V; 521992-Pvomddebajxne; 175036-Ecpwtagmnre, Total; 417495-MNO-H (Total); 217170-Ysbog LDL-P; 869632-HZW Size; 468901-LO-VW Scorewas developed and its performance characteristics determinedby [employer]. It has not been cleared or approved by the Foodand Drug Administration.PATIENT WAS FASTINGPERFORMED BY: Gainsight[address] [id number] BY: Conecta 2R[facility]itan Bay Medical CenterXpvygi9064 [facility] [id number] Lipoprotein.beta.subp article.small [Moles/Vol] 1472 nmol/L Abnormal [facility]; [facility] Work Phone: Comment on above: Test(s) 665366-TMV-M ; 598630-TCX-F; 633137-Ddtnograbggdx; 682092-Zcgzbmcuenr, Total; 987095-UYU-K (Total); 168536-Vucze LDL-P; 359893-VAG Size; 975387-LZ-GT Scorewas developed and its performance characteristics determinedby [employer]. It has not been cleared or approved by the [employer] Drug Administration.PATIENT WAS FASTINGPERFORMED BY: [employer] [address] [id number] BY: RetiDiag6370 [facility] [id number] Triglyceride [Mass/Vol] 292 mg/dL Abnormal 0-149 [facility]; [facility] Work Phone: Comment on above: Test(s) 594120-VNE-O ; 592580-XWG-J; 489096-Eeglkzdtioltu; 986623-Jzfxshjrpbi, Total; 359423-LRA-O (Total); 436397-Etebr LDL-P; 192956-RNO Size; 165622-FA-NL Scorewas developed and its performance characteristics determinedby [employer]. It has not been cleared or approved by the [employer] Drug Administration.PATIENT WAS FASTINGPERFORMED BY: Gainsight[address] [id number] BY: FOURward ThoughtRaritan Bay Medical CenterNdahzm9869 [facility] [id number] NMR Profile (58385) 127 mg/dL Abnormal 0-99 Compr ehensive Internal Medicine; [facility] Work Phone: Comment on above: . Optimal < 100 Abov e optimal 100 - 129 Borderline 130 - 159 High 160 - 189 Very high > 189 . Test(s) 994276-ENV-M ; 843962-JND-U; 587249-Oxprvyoskthan; 000036-Dgsbrxrfyay, Total; 639426-IYZ-J (Total); 765004-Cxxuz LDL-P; 065114-XAX Size; 948947-JU-YS Scorewas developed and its performance characteristics determinedby [employer]. It has not been cleared or approved by the Foodand Drug Administration.PATIENT WAS FASTINGPERFORMED BY: [employer] [address] [id number] BY: GetNinjas70 [facility] [id number] NMR Profile (14191) 39 mg/dL Abnormal Compr ehensive Internal Medicine; [facility] Work Phone: Comment on above: Test(s) 383022-SSG-L ; 315991-MES-Y; 220894-Tiwzgvhuckgej; 764939-Sioebynkode, Total; 223750-GHX-C (Total); 278417-Oadxb LDL-P; 210424-IYA Size; 693735-KG-TD Scorewas developed and its performance characteristics determinedby [employer]. It has not been cleared or approved by the Foodand Drug Administration.PATIENT WAS FASTINGPERFORMED BY: [employer] [address] [id number] BY: netFactor Fezztl6101 [facility] [id number] NMR Profile (36114) 292 mg/dL Abnormal 0-149 Compr ehensive Internal Medicine; [facility] Work Phone: NMR Profile (28280) 218 mg/dL Abnormal 100-199 Compr ehensive Internal Medicine; [facility] Work Phone: TSH (87060)Ordered By: Kelly Victoria on 07-06-2020 TSH Qn 2.500 {uIU/mL} Normal 0.450-4.50 0 [facility]; [facility] Work Phone: Comment on above: Test(s) 106370-DXQ-C ; 239547-XXK-P; 145987-Saflmrfbunfli; 596267-Kzgftotzoru, Total; 912021-DAM-D (Total); 568729-Jadgv LDL-P; 357391-ATG Size; 470961-VB-BI Scorewas developed and its performance characteristics determinedby [employer]. It has not been cleared or approved by the Foodand Drug Administration.PATIENT WAS FASTINGPERFORMED BY: Mophie[address] [id number] BY: GetNinjas70 [facility] [id number] URINALYSIS, W/ MICRO (55494) Ordered By: Dry Cleaner Apprentice on 07-06-2020 Appearance (U) Clear Normal Comprehens tyron Internal Medicine; [facility] Work Phone: Comment on above: Test(s) 472697-DJM-T ; 370160-LDI-J; 973547-Xpcxwrcmustjk; 173686-Mbjesmbscdn, Total; 095686-LYL-Y (Total); 739609-Jfrpi LDL-P; 217062-SQC Size; 562090-OU-JI Scorewas developed and its performance characteristics determinedby [employer]. It has not been cleared or approved by the Foodand Drug Administration.PATIENT WAS FASTINGPERFORMED BY: Mophie[address] [id number] BY: RetiDiag6370 AlonzoThe Rehabilitation InstitutePando NetworksAtrium Health Waxhaw [id number] Bilirubin Ql (U) Negative Normal Comprehe nsive Internal Medicine; [facility] Work Phone: Comment on above: Test(s) 115536-XSX-Y ; 739511-NJC-C; 616663-Rbpsbbomoynnp; 683566-Zdeepfbkwbh, Total; 866594-MZN-F (Total); 881264-Ggfjg LDL-P; 078748-LWS Size; 477403-IZ-KG Scorewas developed and its performance characteristics determinedby [employer]. It has not been cleared or approved by the Foodand Drug Administration.PATIENT WAS FASTINGPERFORMED BY: Mophie[address] [id number] BY: GetNinjas70 [facility] [id number] Color (U) Yellow Normal [facility]; [facility] Work Phone: Comment on above: Test(s) 385156-GYK-Y ; 935267-UTR-Z; 785687-Yeceycxaizdcd; 638791-Fgjtrjozbbp, Total; 792968-OIJ-Y (Total); 784030-Kouxt LDL-P; 517659-QGG Size; 916447-AE-PP Scorewas developed and its performance characteristics determinedby [employer]. It has not been cleared or approved by the Foodand Drug Administration.PATIENT WAS FASTINGPERFORMED BY: [employer] [address] [id number] BY: netFactor Zfmqhn1411 [facility] [id number] Glucose Ql (U) Negative Normal Comprehens tyron Internal Medicine; [facility] Work Phone: Comment on above: Test(s) 586700-FTF-N ; 654957-WHB-M; 111514-Ytogyqgnhzyui; 017281-Etdwkthnpxj, Total; 182367-GBO-T (Total); 172255-Vxnvt LDL-P; 546696-ETP Size; 615551-PN-ZE Scorewas developed and its performance characteristics determinedby [employer]. It has not been cleared or approved by the Foodand Drug Administration.PATIENT WAS FASTINGPERFORMED BY: [employer] [address] [id number] BY: Conecta 2R[facility] Medical CenterTloros3876 [facility] [id number] Hemoglobin Ql (U) Negative Normal Compreh ensive Internal Medicine; [facility] Work Phone: Comment on above: Test(s) 966292-ECN-Y ; 411231-JTU-P; 297011-Zzlqsgqnnqbyb; 140985-Alwjoxxubkp, Total; 760175-RZK-P (Total); 883557-Gwtlr LDL-P; 384681-WKD Size; 730756-QO-SO Scorewas developed and its performance characteristics determinedby [employer]. It has not been cleared or approved by the Foodand Drug Administration.PATIENT WAS FASTINGPERFORMED BY: [employer] [address] [id number] BY: FOURward Thought Qvrrxl2684 DLSAtrium Health Mercy [id number] Ketones Ql (U) Negative Normal [facility] Internal [facility]; [facility] Work Phone: Comment on above: Test(s) 836622-RNO-W ; 958905-POK-E; 746102-Ixgmznykxdfay; 469669-Zytcspdymga, Total; 716171-UFB-W (Total); 074200-Mbtlp LDL-P; 009946-JSG Size; 412817-FT-VM Scorewas developed and its performance characteristics determinedby [employer]. It has not been cleared or approved by the Foodand Drug Administration.PATIENT WAS FASTINGPERFORMED BY: [employer] [address] [id number] BY: GetNinjas70 [facility] On Demand TherapeuticsAtrium Health Mercy [id number] Leukocyte esterase Test strip Ql (U) Negative Normal [facility]; [facility] Work Phone: Comment on above: Test(s) 016260-LKW-S ; 862836-MUF-K; 657724-Bcbpocrxglcgq; 899211-Gbmzikashgy, Total; 459767-VQQ-T (Total); 210380-Pjnjy LDL-P; 366807-ADZ Size; 960863-VP-LK Scorewas developed and its performance characteristics determinedby [employer]. It has not been cleared or approved by the Foodand Drug Administration.PATIENT WAS FASTINGPERFORMED BY: [employer] [address] [id number] BY: GetNinjas70 DLSAtrium Health Mercy [id number] Microscopic observation LM Nom (Urine sed) MICRON Normal [facility]; [facility] Work Phone: Comment on above: Microscopic follows if indicated. Test(s) 996667-KUB-F ; 952572-XTG-X; 189481-Vqerkoxulddum; 608760-Kayczwhxgmc, Total; 369253-IXO-G (Total); 411758-Dtzgg LDL-P; 622966-NJD Size; 950002-XS-XQ Scorewas developed and its performance characteristics determinedby [employer]. It has not been cleared or approved by the Foodand Drug Administration.PATIENT WAS FASTINGPERFORMED BY: [employer] [address] [id number] BY: Isowalkox On Demand TherapeuticsAtrium Health Mercy [id number] Microscopic observation LM Nom (Urine sed) See below: Normal [facility]; [facility] Work Phone: Comment on above: Microscopic was giovanni cated and was performed. Test(s) 654732-LVI-S ; 418485-EDX-F; 463678-Mhualckbfxjsq; 495728-Jzokveszjip, Total; 706346-UUG-E (Total); 746602-Obkhd LDL-P; 011903-RFW Size; 203679-FB-GP Scorewas developed and its performance characteristics determinedby [employer]. It has not been cleared or approved by the Foodand Drug Administration.PATIENT WAS FASTINGPERFORMED BY: [employer] [address] [id number] BY: RetiDiag6370 [facility] QuadAtrium Health [facility] [id number] Nitrite Ql (U) Negative Normal Comprehens tyron Internal Medicine; [facility] Work Phone: Comment on above: Test(s) 130583-THY-S ; 739422-ERT-C; 744261-Xnxpcitugppwt; 999586-Mklekzuszku, Total; 184675-ISD-D (Total); 963579-Ipbsm LDL-P; 474433-LRZ Size; 823360-HJ-BY Scorewas developed and its performance characteristics determinedby [employer]. It has not been cleared or approved by the Foodand Drug Administration.PATIENT WAS FASTINGPERFORMED BY: [employer] [address] [id number] BY: GetNinjas70 [facility] QuadAtrium Health [facility] [id number] pH (U) 6.0 [pH] Normal 5.0-7.5 [facility]; [facility] Work Phone: Comment on above: Test(s) 823220-MQT-R ; 947191-REH-D; 398757-Cahpoesjxudkp; 765960-Tzfnluiamms, Total; 544926-VBT-O (Total); 366034-Jihxm LDL-P; 471486-MFQ Size; 871776-IX-WK Scorewas developed and its performance characteristics determinedby [employer]. It has not been cleared or approved by the Foodand Drug Administration.PATIENT WAS FASTINGPERFORMED BY: [employer] [address] [id number] BY: GetNinjas70 [facility] [id number] Protein Ql (U) Negative Normal [facility] Internal Medicine; [facility] Work Phone: Comment on above: Test(s) 194368-DFZ-T ; 847892-AZF-E; 427139-Gdqrhyxvfsfnb; 406340-Cwmspftaahq, Total; 007012-IHH-F (Total); 033626-Qxhwv LDL-P; 595120-HSW Size; 440340-ED-GG Scorewas developed and its performance characteristics determinedby [employer]. It has not been cleared or approved by the Foodand Drug Administration.PATIENT WAS FASTINGPERFORMED BY: [employer] [address] [id number] BY: netFactor Pxjlhg1576 [facility] [id number] Specific gravity (U) [Rel density] 1.021 1 Normal 1.005-1.03 0 [facility]; [facility] Work Phone: Comment on above: Test(s) 005251-KRE-X ; 275214-SDY-V; 201440-Wcenzixmsyayz; 796848-Yaychpycgkp, Total; 056865-NCC-U (Total); 864613-Caskk LDL-P; 731280-VCX Size; 059943-FE-PL Scorewas developed and its performance characteristics determinedby [employer]. It has not been cleared or approved by the Foodand Drug Administration.PATIENT WAS FASTINGPERFORMED BY: Fididel [address] [id number] BY: Cone[place]a 2R[facility] Medical CenterRldhfm1862 [facility] [id number] Urobilinogen (U) [Mass/Vol] 0.2 mg/dL Normal 0.2-1.0 [facility]; [facility] Work Phone: Comment on above: Test(s) 362537-IDT-T ; 388602-GEK-J; 016346-Rdfpzdbvylcog; 615287-Thpwszzafas, Total; 905542-NTL-E (Total); 136383-Nqnug LDL-P; 817192-EPZ Size; 729146-XF-LB Scorewas developed and its performance characteristics determinedby [employer]. It has not been cleared or approved by the Foodand Drug Administration.PATIENT WAS FASTINGPERFORMED BY: [employer] [address] [id number] BY: Conecta 2R[facility] Medical CenterBiissj3282 [facility] [id number] Blood Glucose , Office ([phone])Ordered By: Angelica Meneses on 04-13-2020 Glucose Glucometer (BldC) [Moles/Vol] 181 1 Normal [facility]; [facility] Work Phone: HgA1C , Office ([phone])Ordere d By: Angelica Meneses on 04-13-2020 HbA1c (Bld) [Mass fraction] 7.3 % Abnormal 4.6 - 7.1 [facility]; [facility] Work Phone: Blood Glucose , Office ([phone])Ordered By: Angelica Meneses on 11-25-2019 Glucose Glucometer (BldC) [Moles/Vol] 134 1 Normal [facility] Work Phone: HgA1C , Office ([phone])Ordere d By: Angelica Meneses on 11-25-2019 HbA1c (Bld) [Mass fraction] 6.6 % Normal 4.6 - 7.1 [facility] Work Phone: CBC with auto diff (74622)Or dered By: Dry Cleaner Apprentice on 11-11-2019 Basophils (Bld) [#/Vol] 0.0 {x10E3/uL} Normal 0.0-0.2 [facility] Work Phone: Comment on above: Test(s) 292509-BAN-Q ; 381216-ALD-K; 126129-Wuisyhubepuyh; 403178-Ykftklpqlfo, Total; 947574-YOO-T (Total); 785952-Jzhwf LDL-P; 108204-ORJ Size; 952496-AY-US Scorewas developed and its performance characteristics determinedby Fididel. It has not been cleared or approved by the Foodand Drug Administration.PATIENT WAS FASTINGPERFORMED BY: Mophie[address] [id number] BY: Apta BiosciencesAtrium Health Waxhaw [id number] Basophils (Bld) [#/Vol] 0.0 10*3/uL Normal 0.0-0.2 [facility]; [facility] Work Phone: Comment on above: Test(s) 365230-EXM-L ; 910798-QMC-Y; 784348-Hbpunqilcjvvm; 519679-Lsebqfbgibs, Total; 234591-KYH-U (Total); 987580-Yztua LDL-P; 856748-NMR Size; 597800-DY-PM Scorewas developed and its performance characteristics determinedby Fididel. It has not been cleared or approved by the Foodand Drug Administration.PATIENT WAS FASTINGPERFORMED BY: Mophie[address] [id number] BY: GetNinjas70 vocaltapAtrium Health [facility] [id number] Basophils/100 WBC (Bld) 1 % Normal [facility] Work Phone: Comment on above: Test(s) 516460-MZY-N ; 789086-SUU-O; 026733-Dgdqyfsvpwpzw; 019464-Xswxbttelxp, Total; 996598-NOV-B (Total); 735581-Sgwfm LDL-P; 511557-GUX Size; 061525-PR-YD Scorewas developed and its performance characteristics determinedby Fididel. It has not been cleared or approved by the Foodand Drug Administration.PATIENT WAS FASTINGPERFORMED BY: [facility] [address] [id number] BY: Cone[place]a 2[facility] CenterMayztq3991 [facility] [id number] Eosinophils (Bld) [#/Vol] 0.1 {x10E3/uL} Normal 0.0-0.4 [facility] Work Phone: Comment on above: Test(s) 917883-MCP-R ; 553347-LPF-X; 282303-Tpojebxgxqdyu; 445054-Vkeombujnro, Total; 366027-YTJ-W (Total); 877143-Rbjrc LDL-P; 764982-ZPT Size; 187387-WG-YB Scorewas developed and its performance characteristics determinedby Fididel. It has not been cleared or approved by the Foodand Drug Administration.PATIENT WAS FASTINGPERFORMED BY: [employer] [address] [id number] BY: [place]a 2[facility] CenterYyvdxd7715 [facility] [id number] Eosinophils (Bld) [#/Vol] 0.1 10*3/uL Normal 0.0-0.4 [facility]; [facility] Work Phone: Comment on above: Test(s) 997924-GVF-H ; 660076-WRR-J; 729216-Enygvxkzqzlvk; 527578-Qlrsrqdtnoy, Total; 482237-KWH-G (Total); 022645-Qurug LDL-P; 185998-CWD Size; 283746-YF-QR Scorewas developed and its performance characteristics determinedby Fididel. It has not been cleared or approved by the Foodand Drug Administration.PATIENT WAS FASTINGPERFORMED BY: [facility] [address] [id number] BY: [place]a [address] 9952870 [facility] [id number] Eosinophils/100 WBC (Bld) 2 % Normal [facility] Work Phone: Comment on above: Test(s) 180017-HTZ-J ; 050061-WNR-R; 055499-Wfcwnjrvniexo; 669427-Edakwafclvk, Total; 062725-BTD-K (Total); 011739-Kxfic LDL-P; 722616-IMA Size; 596903-SQ-KH Scorewas developed and its performance characteristics determinedby Fididel. It has not been cleared or approved by the Foodand Drug Administration.PATIENT WAS FASTINGPERFORMED BY: [employer] [address] [id number] BY: netFactor Vmfywr3069 [facility] [id number] Erythrocyte distribution width (RBC) [Ratio] 13.2 % Normal 11.6-15.4 [facility] Work Phone: Comment on above: Test(s) 577888-XAG-I ; 312179-EQB-P; 740423-Krimyuifjqcde; 953356-Jqynngucvbk, Total; 443224-GTN-M (Total); 122057-Zkeyw LDL-P; 938984-BJI Size; 393923-TM-ZO Scorewas developed and its performance characteristics determinedby Fididel. It has not been cleared or approved by the [employer] Drug Administration.PATIENT WAS FASTINGPERFORMED BY: [employer] [address] [id number] BY: FOURward ThoughtUnion County General HospitalCulwfp3173 [facility] [id number] Hematocrit (Bld) [Volume fraction] 43.8 % Normal 37.5-51.0 [facility] Work Phone: Comment on above: Test(s) 092212-RZM-D ; 547415-IOU-M; 786821-Hzfqhsnjxcrls; 235110-Mozktkbgazc, Total; 275523-XAZ-D (Total); 824634-Zrdum LDL-P; 832762-BNL Size; 281989-BV-OZ Scorewas developed and its performance characteristics determinedby Fididel. It has not been cleared or approved by the Foodand Drug Administration.PATIENT WAS FASTINGPERFORMED BY: [facility] [address] [id number] BY: [place] 2[facility] HospitalJmdtqy1544 [facility] [id number] Hemoglobin (Bld) [Mass/Vol] 14.9 g/dL Normal 13.0-17.7 [facility] Work Phone: Comment on above: Test(s) 475781-GZZ-U ; 033097-THB-G; 309462-Yqzoyfvqfavov; 107941-Ptypljojiyp, Total; 797267-OHW-B (Total); 863337-Enfhu LDL-P; 678090-SGB Size; 533899-FD-MC Scorewas developed and its performance characteristics determinedby Fididel. It has not been cleared or approved by the Foodand Drug Administration.PATIENT WAS FASTINGPERFORMED BY: [employer] [address] [id number] BY: Fididel Dwltli1497 [facility] [id number] Immature granulocytes (Bld) [#/Vol] 0.0 {x10E3/uL} Normal 0.0-0.1 [facility] Work Phone: Comment on above: Test(s) 843013-HAO-L ; 509812-JWJ-B; 113910-Uanmqusbhmgip; 941343-Fhdhamiwbyv, Total; 043233-HQS-M (Total); 574873-Wkxbz LDL-P; 143641-ITC Size; 768719-EF-NM Scorewas developed and its performance characteristics determinedby Fididel. It has not been cleared or approved by the Foodand Drug Administration.PATIENT WAS FASTINGPERFORMED BY: [facility] [address] [id number] BY: [place] 2[facility] CenterSsfycm7753 [facility] [id number] Immature granulocytes (Bld) [#/Vol] 0.0 10*3/uL Normal 0.0-0.1 [facility]; [facility] Work Phone: Comment on above: Test(s) 068549-INE-Q ; 432163-TEP-Y; 818944-Tigixhjzjdfsb; 951251-Fllcqvislal, Total; 644959-RPA-S (Total); 907209-Bvndd LDL-P; 968589-JKA Size; 834405-AD-DC Scorewas developed and its performance characteristics determinedby Fididel. It has not been cleared or approved by the Foodand Drug Administration.PATIENT WAS FASTINGPERFORMED BY: [employer] [address] [id number] BY: [facility]alkNorth[facility] Medical Center [id number] Immature granulocytes/100 WBC (Bld) 0 % Normal [facility] Work Phone: Comment on above: Test(s) 733941-BFF-C ; 808414-BDT-B; 308137-Wsprqivafgjqf; 235475-Ejgmphkzcvw, Total; 507795-LYI-K (Total); 377154-Mbmoo LDL-P; 388099-YWA Size; 294492-TC-WM Scorewas developed and its performance characteristics determinedby Fididel. It has not been cleared or approved by the Foodand Drug Administration.PATIENT WAS FASTINGPERFORMED BY: [employer] [address] [id number] BY: GetNinjas70 [facility]zoNorth[facility] Medical Center [id number] Lymphocytes (Bld) [#/Vol] 2.1 {x10E3/uL} Normal 0.7-3.1 [facility] Work Phone: Comment on above: Test(s) 149941-IVI-C ; 196505-AKX-E; 702985-Xuctezxkciljk; 024947-Ulriexpesmx, Total; 563955-SMB-J (Total); 474974-Wmlzf LDL-P; 800791-RPX Size; 240038-RF-VK Scorewas developed and its performance characteristics determinedby Fididel. It has not been cleared or approved by the Foodand Drug Administration.PATIENT WAS FASTINGPERFORMED BY: BN LabCo[address] [id number] BY: FOURward ThoughtUnion County General HospitalGbywwp9172 [facility] [id number] Lymphocytes (Bld) [#/Vol] 2.1 10*3/uL Normal 0.7-3.1 [facility]; [facility] Work Phone: Comment on above: Test(s) 242485-IYE-D ; 785402-RKO-Z; 269515-Dmzrdtjdicncq; 633291-Tyeznxcoqce, Total; 131699-MLJ-F (Total); 210288-Hrzqw LDL-P; 472139-EQT Size; 710262-NE-EO Scorewas developed and its performance characteristics determinedby Fididel. It has not been cleared or approved by the Foodand Drug Administration.PATIENT WAS FASTINGPERFORMED BY: [employer] [address] [id number] BY: RetiDiag6370 DLSAtrium Health Mercy [id number] Lymphocytes/100 WBC (Bld) 32 % Normal [facility] Work Phone: Comment on above: Test(s) 970810-ZAC-U ; 936773-YQQ-U; 821327-Zczrauzeppmbd; 706620-Oydgvrrvktr, Total; 905381-INV-X (Total); 324979-Dqrhz LDL-P; 155726-FUX Size; 481919-UX-QI Scorewas developed and its performance characteristics determinedby Fididel. It has not been cleared or approved by the Foodand Drug Administration.PATIENT WAS FASTINGPERFORMED BY: [employer] [address] [id number] BY: FOURward Thought Zqjbyg7906 [facility] [id number] MCH (RBC) [Entitic mass] 28.5 pg Normal 26.6-33.0 [facility] Work Phone: Comment on above: Test(s) 788767-WEL-L ; 734582-MEZ-K; 525463-Bmwaywotzdxnj; 816937-Xcdyqyfnaqj, Total; 857418-XRO-L (Total); 525731-Gicbk LDL-P; 932532-LBI Size; 277064-CE-LX Scorewas developed and its performance characteristics determinedby Fididel. It has not been cleared or approved by the Foodand Drug Administration.PATIENT WAS FASTINGPERFORMED BY: [employer] [address] [id number] BY: GetNinjas70 vocaltapAtrium Health W[facility]haw [id number] MCHC (RBC) [Mass/Vol] 34.0 g/dL Normal 31.5-35.7 [facility] Internal Medicine Work Phone: Comment on above: Test(s) 787814-FXR-K ; 962695-GSZ-C; 766366-Vyapszmdjqojb; 689679-Nkvfegppjkr, Total; 874854-LMD-X (Total); 309927-Pulzg LDL-P; 932904-ZJN Size; 058127-OE-SX Scorewas developed and its performance characteristics determinedby Fididel. It has not been cleared or approved by the Foodand Drug Administration.PATIENT WAS FASTINGPERFORMED BY: [employer] [address] [id number] BY: GetNinjas70 vocaltapAtrium Health [facility] [id number] MCV (RBC) [Entitic vol] 84 fL Normal 79-97 [facility] Internal Medicine Work Phone: Comment on above: Test(s) 113120-TGW-G ; 745127-ECW-S; 343923-Jnnttwpbzxrcd; 638843-Kxkvnvwmpcz, Total; 586773-HMG-Y (Total); 575386-Kpfcz LDL-P; 035901-JQV Size; 356865-TR-AD Scorewas developed and its performance characteristics determinedby Fididel. It has not been cleared or approved by the Foodand Drug Administration.PATIENT WAS FASTINGPERFORMED BY: [employer] [address] [id number] BY: RetiDiag6370 [facility] QuadAt[facility] [id number] Monocytes (Bld) [#/Vol] 0.4 {x10E3/uL} Normal 0.1-0.9 [facility] Work Phone: Comment on above: Test(s) 425744-YOI-V ; 703840-TLH-L; 591550-Vysywtzdisgdm; 429041-Esklctozspe, Total; 109811-SJM-L (Total); 997254-Qdbch LDL-P; 158061-VDC Size; 510054-NV-SY Scorewas developed and its performance characteristics determinedby Fididel. It has not been cleared or approved by the Foodand Drug Administration.PATIENT WAS FASTINGPERFORMED BY: [employer] [address] [id number] BY: GetNinjas70 [facility] [id number] Monocytes (Bld) [#/Vol] 0.4 10*3/uL Normal 0.1-0.9 [facility]; [facility] Work Phone: Comment on above: Test(s) 381233-GVQ-Q ; 895729-SZW-V; 119184-Pfgmikqmfxxlw; 688524-Onidsxkbpna, Total; 552512-OWC-X (Total); 347992-Adxwz LDL-P; 144047-VKN Size; 476636-FV-HT Scorewas developed and its performance characteristics determinedby Fididel. It has not been cleared or approved by the Foodand Drug Administration.PATIENT WAS FASTINGPERFORMED BY: [employer] [address] [id number] BY: netFactor Vhfrxz8689 [facility] [id number] Monocytes/100 WBC (Bld) 6 % Normal [facility] Work Phone: Comment on above: Test(s) 216886-PRE-E ; 357580-ZAX-Y; 524354-Ulvpndjelyeii; 182129-Ftbnyttngex, Total; 599390-XXU-B (Total); 615106-Lhaqb LDL-P; 469754-FJD Size; 476316-IN-FE Scorewas developed and its performance characteristics determinedby Fididel. It has not been cleared or approved by the Foodand Drug Administration.PATIENT WAS FASTINGPERFORMED BY: [facility] [address] [id number] BY: [place] 2[facility] CenterNalfro5190 [facility] [id number] Neutrophils (Bld) [#/Vol] 3.7 {x10E3/uL} Normal 1.4-7.0 [facility] Work Phone: Comment on above: Test(s) 973702-BFJ-L ; 535347-FXS-E; 777399-Jodhrspydvtwk; 854227-Zkcuvmtcrlq, Total; 858662-FYT-P (Total); 284786-Ytojp LDL-P; 568827-LUH Size; 287417-XY-QC Scorewas developed and its performance characteristics determinedby Fididel. It has not been cleared or approved by the Foodand Drug Administration.PATIENT WAS FASTINGPERFORMED BY: [employer] [address] [id number] BY: [place] 2[facility] HospitalJpbdwn8996 [facility] [id number] Neutrophils (Bld) [#/Vol] 3.7 10*3/uL Normal 1.4-7.0 [facility]; [facility] Work Phone: Comment on above: Test(s) 687862-KCL-R ; 672515-KEF-Y; 368900-Etkzyqfzhehpl; 293523-Dvvjanyykrk, Total; 907753-BNH-C (Total); 368742-Vgqnq LDL-P; 469131-DCB Size; 207368-BM-KP Scorewas developed and its performance characteristics determinedby Fididel. It has not been cleared or approved by the Foodand Drug Administration.PATIENT WAS FASTINGPERFORMED BY: [facility] [address] [id number] BY: [place] 2[facility] CenterMyodze7121 [facility] [id number] Neutrophils/100 WBC (Bld) 59 % Normal [facility] Work Phone: Comment on above: Test(s) 081850-XBB-F ; 613267-YIW-N; 383793-Xplqudtgivufc; 661405-Qngekqwfhvo, Total; 037109-CIR-C (Total); 627467-Qyoms LDL-P; 769910-EDZ Size; 038392-JX-AL Scorewas developed and its performance characteristics determinedby Fididel. It has not been cleared or approved by the Foodand Drug Administration.PATIENT WAS FASTINGPERFORMED BY: [employer] [address] [id number] BY: GetNinjas70 [facility] [id number] Platelets (Bld) [#/Vol] 271 {x10E3/uL} Normal 150-450 [facility] Work Phone: Comment on above: Test(s) 920344-JAE-H ; 845046-AUS-U; 620261-Lmjeoggaoxhlv; 759086-Nucsdbgstuh, Total; 388350-BCE-X (Total); 215822-Ckkwh LDL-P; 722791-XPH Size; 024055-PI-PR Scorewas developed and its performance characteristics determinedby Fididel. It has not been cleared or approved by the Foodand Drug Administration.PATIENT WAS FASTINGPERFORMED BY: [employer] [address] [id number] BY: RetiDiag6370 [facility] [id number] Platelets (Bld) [#/Vol] 271 10*3/uL Normal 150-450 [facility]; [facility] Work Phone: Comment on above: Test(s) 058750-TCK-T ; 626171-JTT-U; 915859-Kqcpmkwdfeujw; 155008-Uonczmbfwev, Total; 762600-HIG-M (Total); 785342-Iwssh LDL-P; 841576-QAE Size; 705001-BH-LS Scorewas developed and its performance characteristics determinedby Fididel. It has not been cleared or approved by the Foodand Drug Administration.PATIENT WAS FASTINGPERFORMED BY: BN LabCo[address] [id number] BY: FOURward Thought Yosdlv3496 [facility] [id number] RBC (Bld) [#/Vol] 5.23 {x10E6/uL} Normal 4.14-5.80 [facility] Internal Medicine Work Phone: Comment on above: Test(s) 063635-XWG-H ; 899713-TJW-C; 490667-Jrwrnjekzbvjo; 907838-Xbwgixuuusf, Total; 558459-YLK-N (Total); 990342-Ieghg LDL-P; 288326-XXO Size; 209351-ZC-LS Scorewas developed and its performance characteristics determinedby Fididel. It has not been cleared or approved by the Foodand Drug Administration.PATIENT WAS FASTINGPERFORMED BY: Mophie[address] [id number] BY: RetiDiag6370 [facility] [id number] RBC (Bld) [#/Vol] 5.23 10*6/uL Normal 4.14-5.80 [facility] Internal Medicine; [facility] Internal Medicine Work Phone: Comment on above: Test(s) 710187-HHH-G ; 767551-VAF-G; 983310-Jszttrfdevohx; 140832-Qropefkecge, Total; 820865-LVL-W (Total); 103758-Maqjw LDL-P; 727032-BJX Size; 137118-CA-XP Scorewas developed and its performance characteristics determinedby Fididel. It has not been cleared or approved by the Foodand Drug Administration.PATIENT WAS FASTINGPERFORMED BY: [employer] [address] [id number] BY: Catchafirelin6370 [facility] [id number] WBC (Bld) [#/Vol] 6.4 {x10E3/uL} Normal 3.4-10.8 [facility] Internal Medicine Work Phone: Comment on above: Test(s) 567116-BXT-T ; 833185-MJG-C; 708915-Kmojtnyfvzrzp; 317361-Qpchpycqxyy, Total; 634314-XQQ-M (Total); 019236-Vfaum LDL-P; 356308-BQZ Size; 521376-BK-UF Scorewas developed and its performance characteristics determinedby Fididel. It has not been cleared or approved by the Foodand Drug Administration.PATIENT WAS FASTINGPERFORMED BY: [facility] [address] [id number] BY: [place] [address] 9952870 [facility] [id number] WBC (Bld) [#/Vol] 6.4 10*3/uL Normal 3.4-10.8 [facility] Internal Medicine; [facility] Internal Medicine Work Phone: Comment on above: Test(s) 515053-JTQ-C ; 726582-YSE-W; 818098-Wpmdekfloxcfd; 730281-Frdozftmebe, Total; 122340-YSS-P (Total); 021143-Psxvr LDL-P; 807957-KTE Size; 677400-KP-PB Scorewas developed and its performance characteristics determinedby Fididel. It has not been cleared or approved by the Foodand Drug Administration.PATIENT WAS FASTINGPERFORMED BY: [facility] [address] [id number] BY: Cone[place]a 2[facility] CenterPfsdcj8720 [facility] [id number] METABOLIC PANEL, COMPREHENSI VE (83050)Ordered By: Dry Cleaner Apprentice on 11-11-2019 Albumin [Mass/Vol] 4.5 g/dL Normal 3.8-4.9 [facility] Internal Medicine Work Phone: Comment on above: Test(s) 971470-OIN-P ; 079327-VDE-Q; 998461-Ncigpzogfwyca; 005007-Kivcobwbmcd, Total; 805193-FZL-A (Total); 069948-Xfbnt LDL-P; 146739-LAU Size; 126438-IB-JQ Scorewas developed and its performance characteristics determinedby Fididel. It has not been cleared or approved by the Foodand Drug Administration.PATIENT WAS FASTINGPERFORMED BY: [facility] [address] [id number] BY: C[place]a 2[facility] CenterPtspqf0947 [facility] [id number] Albumin/Globulin [Mass ratio] 1.6 {ratio} Normal 1.2-2.2 [facility] Work Phone: Comment on above: Test(s) 988935-GXZ-V ; 949579-WHA-C; 749040-Zumnejqxwzxfh; 454779-Jlwqdnjyqdt, Total; 449035-EGM-R (Total); 546629-Vthgx LDL-P; 356707-PLF Size; 085604-TQ-OB Scorewas developed and its performance characteristics determinedby Cone[facility]a 2. It has not been cleared or approved by the Foodand Drug Administration.PATIENT WAS FASTINGPERFORMED BY: Fididel [address] [id number] BY: FOURward Thought Gslxha8037 [facility] [id number] ALP [Catalytic activity/Vol] 50 [iU]/L Normal 39117 [facility] Work Phone: Comment on above: Test(s) 124920-IUH-O ; 172933-DCQ-J; 003755-Kphfjvqjrqtmb; 686894-Sunfhmjayad, Total; 688781-BFS-D (Total); 862920-Oosnz LDL-P; 059256-VMH Size; 580856-EC-JZ Scorewas developed and its performance characteristics determinedby Conecta 2. It has not been cleared or approved by the Foodand Drug Administration.PATIENT WAS FASTINGPERFORMED BY: C[facility]a [address] [id number] BY: Cone[place]a 2[facility] CenterUuixon3105 [facility] [id number] ALP [Catalytic activity/Vol] 50 U/L Normal 39-117 [facility]; [facility] Work Phone: Comment on above: Test(s) 847247-KRK-Z ; 907918-KNB-G; 389217-Jdbzjshthkryu; 697197-Lmoysjskfyj, Total; 417149-OMR-S (Total); 661401-Gfcvp LDL-P; 373410-QJF Size; 122046-RP-IO Scorewas developed and its performance characteristics determinedby Fididel. It has not been cleared or approved by the Foodand Drug Administration.PATIENT WAS FASTINGPERFORMED BY: [facility] [address] [id number] BY: Conecta 2 Eiiwez1252 [facility] Dem[facility] TherapeuticsAt[facility] Health Mercy [id number] ALT [Catalytic activity/Vol] 59 [iU]/L Abnormal 0-44 [facility] Work Phone: Comment on above: Test(s) 464569-EPJ-W ; 524739-UBE-O; 225962-Yxtseyyrjgbjf; 861023-Mzcafsmoftn, Total; 075316-HGK-Z (Total); 597636-Pbmnl LDL-P; 772560-SVQ Size; 878738-JR-XY Scorewas developed and its performance characteristics determinedby Fididel. It has not been cleared or approved by the Foodand Drug Administration.PATIENT WAS FASTINGPERFORMED BY: [place] [address] [id number] BY: FOURward Thought Dnwnyl6861 [facility] [id number] ALT [Catalytic activity/Vol] 59 U/L Abnormal 0-44 [facility]; [facility] Work Phone: Comment on above: Test(s) 777073-HLL-W ; 661916-DVX-E; 945846-Eolgczpynlnao; 513740-Ipamnedngbx, Total; 802981-EXJ-R (Total); 028371-Yskzc LDL-P; 097505-WNA Size; 696289-QY-LF Scorewas developed and its performance characteristics determinedby Fididel. It has not been cleared or approved by the Foodand Drug Administration.PATIENT WAS FASTINGPERFORMED BY: [facility] [address] [id number] BY: Conecta 2 Djgtwr0624 [place] [employer] Dem[facility] TherapeuticsAtrium Health Mercy [id number] AST [Catalytic activity/Vol] 32 [iU]/L Normal 0-40 [facility] Work Phone: Comment on above: Test(s) 731523-QRG-K ; 751375-ZVA-X; 188257-Qgygorfwavtnb; 945441-Cshycazvmvn, Total; 497904-VZY-Z (Total); 141902-Jkubd LDL-P; 045942-MCZ Size; 909039-KQ-NP Scorewas developed and its performance characteristics determinedby Fididel. It has not been cleared or approved by the Foodand Drug Administration.PATIENT WAS FASTINGPERFORMED BY: [facility] [address] [id number] BY: FOURward ThoughtUnion County General HospitalTyrybl3292 [facility] [id number] AST [Catalytic activity/Vol] 32 U/L Normal 0-40 [facility] Internal Medicine; [facility] Internal Medicine Work Phone: Comment on above: Test(s) 701727-SVI-V ; 267510-AZA-B; 860324-Yqxhnjhpsoafe; 515723-Ulslfnlolsc, Total; 653809-RJV-F (Total); 307610-Ymouo LDL-P; 253838-PIL Size; 303989-NT-JL Scorewas developed and its performance characteristics determinedby Fididel. It has not been cleared or approved by the Foodand Drug Administration.PATIENT WAS FASTINGPERFORMED BY: [facility] [address] [id number] BY: Conecta 2[facility] CenterVqynlk3150 [facility] [id number] Bilirubin [Mass/Vol] 0.5 mg/dL Normal 0.0-1.2 [facility] Internal Medicine Work Phone: Comment on above: Test(s) 050317-IMY-Y ; 577144-SFA-Y; 407708-Qkjyfcfsiixpc; 926439-Omqpbbcfovr, Total; 385239-JHF-F (Total); 142335-Tdoyq LDL-P; 174857-UDJ Size; 384681-SX-LI Scorewas developed and its performance characteristics determinedby Fididel. It has not been cleared or approved by the Foodand Drug Administration.PATIENT WAS FASTINGPERFORMED BY: [employer] [address] [id number] BY: Cone[place]a 2[facility] CenterTpaalr1599 [facility] [id number] Calcium [Mass/Vol] 9.6 mg/dL Normal 8.7-10.2 [facility] Internal Medicine Work Phone: Comment on above: Test(s) 069889-YVG-E ; 494492-ZYI-O; 246866-Rvxnxnmcoaslr; 201610-Fqosqifluha, Total; 173316-UGB-R (Total); 811879-Ujuxv LDL-P; 025515-ZEA Size; 421500-KN-HY Scorewas developed and its performance characteristics determinedby Fididel. It has not been cleared or approved by the Foodand Drug Administration.PATIENT WAS FASTINGPERFORMED BY: Mophie[address] [id number] BY: netFactor Kbusfy0297 [facility] [id number] Chloride [Moles/Vol] 101 mmol/L Normal 96-106 [facility] Internal Medicine Work Phone: Comment on above: Test(s) 428117-MCV-N ; 100335-UOG-S; 719228-Ythcnsbyxlrax; 172452-Efejgeghyqm, Total; 143649-DEV-T (Total); 269143-Vrpxc LDL-P; 252559-PFB Size; 353378-NM-VG Scorewas developed and its performance characteristics determinedby Fididel. It has not been cleared or approved by the Foodand Drug Administration.PATIENT WAS FASTINGPERFORMED BY: [employer] [address] [id number] BY: Conecta 2[facility] Medical CenterZdqfbx5929 [facility] [id number] CO2 [Moles/Vol] 20 mmol/L Normal 20-29 [facility] Internal Medicine Work Phone: Comment on above: Test(s) 949394-SOM-L ; 593166-PFF-S; 045962-Qixiikiiflscj; 025429-Rzxqlqtvgjc, Total; 640348-PYH-U (Total); 572057-Lofgs LDL-P; 271170-FDI Size; 177800-XR-YQ Scorewas developed and its performance characteristics determinedby Fididel. It has not been cleared or approved by the Foodand Drug Administration.PATIENT WAS FASTINGPERFORMED BY: [employer] [address] [id number] BY: netFactor Wioluc1882 [facility] [id number] Creatinine [Mass/Vol] 1.01 mg/dL Normal 0.76-1.27 [facility] prehensive Internal Medicine Work Phone: Comment on above: Test(s) 170382-DIC-R ; 622633-KIE-T; 721488-Ppnhtxabnjikk; 505928-Mmbgxrpjewf, Total; 552113-BKL-Q (Total); 881831-Puqpv LDL-P; 365088-XLA Size; 574435-SJ-PH Scorewas developed and its performance characteristics determinedby Fididel. It has not been cleared or approved by the Foodand Drug Administration.PATIENT WAS FASTINGPERFORMED BY: [employer] [address] [id number] BY: netFactor Ufagbc8959 [facility] [id number] GFR/1.73 sq M predicted among blacks CKD-EPI (S/P/Bld) [Vol rate/Area] 99 mL/min/1.73 Normal [facility] Internal Medicine Work Phone: Comment on above: Test(s) 326352-TZG-Y ; 275011-NGH-I; 798048-Xjhffxnghrgfp; 902174-Qsvtrpefukx, Total; 584555-QRO-P (Total); 138241-Agdkt LDL-P; 443133-NSS Size; 280821-YG-FZ Scorewas developed and its performance characteristics determinedby Fididel. It has not been cleared or approved by the Foodand Drug Administration.PATIENT WAS FASTINGPERFORMED BY: BN [facility] [id number] BY: Cone[place]a 2[facility] CenterEbaksn4579 [facility] [id number] GFR/1.73 sq M predicted among non-blacks CKD-EPI (S/P/Bld) [Vol rate/Area] 86 mL/min/1.73 Normal [facility] Work Phone: Comment on above: Test(s) 205412-TFF-O ; 299131-IDG-T; 456515-Zcrovdgltkhyu; 132413-Yjjstswignu, Total; 961838-NTP-L (Total); 446619-Bgzxa LDL-P; 598236-SNP Size; 605181-IQ-MW Scorewas developed and its performance characteristics determinedby Fididel. It has not been cleared or approved by the Foodand Drug Administration.PATIENT WAS FASTINGPERFORMED BY: [employer] [address] [id number] BY: GetNinjas70 [facility] [id number] Globulin (S) [Mass/Vol] 2.8 g/dL Normal 1.5-4.5 [facility] Internal Medicine Work Phone: Comment on above: Test(s) 889309-RJB-R ; 089697-YUF-Q; 575301-Umumebkibxfqr; 204379-Ksqdnxglsfb, Total; 752166-DNW-H (Total); 432909-Upmgo LDL-P; 305870-PCW Size; 749105-RK-EZ Scorewas developed and its performance characteristics determinedby Fididel. It has not been cleared or approved by the Foodand Drug Administration.PATIENT WAS FASTINGPERFORMED BY: [employer] [address] [id number] BY: FOURward ThoughtRaritan Bay Medical CenterHuhwhh1070 [facility] [id number] Glucose [Mass/Vol] 148 mg/dL Abnormal 65-99 [facility] Internal Medicine Work Phone: Comment on above: Test(s) 848330-TBH-U ; 141023-BOL-Z; 371020-Qqlnkhspnnoxt; 448872-Ompoqmikrxg, Total; 582228-LZN-A (Total); 401871-Kxsro LDL-P; 893529-MFV Size; 171383-RF-QG Scorewas developed and its performance characteristics determinedby Fididel. It has not been cleared or approved by the Foodand Drug Administration.PATIENT WAS FASTINGPERFORMED BY: [employer] [address] [id number] BY: RetiDiag6370 [facility] [id number] Potassium [Moles/Vol] 4.3 mmol/L Normal 3.5-5.2 [facility] Internal Medicine Work Phone: Comment on above: Test(s) 089744-BYI-G ; 129986-HLE-I; 325954-Feykjpzosopcc; 691221-Wcwigjomvit, Total; 505428-LXN-M (Total); 933276-Tavwa LDL-P; 804538-BCW Size; 543648-OQ-IJ Scorewas developed and its performance characteristics determinedby Fididel. It has not been cleared or approved by the Foodand Drug Administration.PATIENT WAS FASTINGPERFORMED BY: [employer] [address] [id number] BY: RetiDiag6370 [facility] [id number] Protein [Mass/Vol] 7.3 g/dL Normal 6.0-8.5 [facility] Internal Medicine Work Phone: Comment on above: Test(s) 376270-DDB-S ; 046880-CRO-I; 539274-Umqwxypbcsfsa; 984554-Lesptayrcyo, Total; 171369-RXL-Q (Total); 978784-Qxujy LDL-P; 919954-DRA Size; 313003-HC-EC Scorewas developed and its performance characteristics determinedby Fididel. It has not been cleared or approved by the Foodand Drug Administration.PATIENT WAS FASTINGPERFORMED BY: [employer] [address] [id number] BY: GetNinjas70 [facility] [id number] Sodium [Moles/Vol] 140 mmol/L Normal 134-144 [facility] Internal Medicine Work Phone: Comment on above: Test(s) 025626-RKM-H ; 631399-XDX-V; 070980-Xdfzituqegeqw; 368968-Sjlbydzopug, Total; 297694-GPH-H (Total); 759461-Ljnly LDL-P; 145777-BHC Size; 212443-DX-OC Scorewas developed and its performance characteristics determinedby Fididel. It has not been cleared or approved by the Foodand Drug Administration.PATIENT WAS FASTINGPERFORMED BY: Mophie[address] [id number] BY: netFactor Gkpiqw9897 [facility] [id number] Urea nitrogen [Mass/Vol] 16 mg/dL Normal 6-24 [facility] Internal Medicine Work Phone: Comment on above: Test(s) 836848-CJE-G ; 947295-TLF-M; 881498-Rbildmpfleexv; 497235-Bwmuoepkpff, Total; 407730-CJO-A (Total); 355316-Cwule LDL-P; 499047-YIP Size; 128916-GS-UU Scorewas developed and its performance characteristics determinedby Fididel. It has not been cleared or approved by the Foodand Drug Administration.PATIENT WAS FASTINGPERFORMED BY: [employer] [address] [id number] BY: FOURward ThoughtRaritan Bay Medical CenterIyqhja9426 [facility] [id number] Urea nitrogen/Creatinine [Mass ratio] 16 mg/mg Normal 9-20 [facility] Work Phone: Comment on above: Test(s) 075573-DPT-S ; 874784-DYM-F; 105027-Fctdedbgqzwpx; 191550-Rxxgtggkogd, Total; 385998-FII-X (Total); 682440-Fgkeg LDL-P; 148692-CVN Size; 726524-TT-YG Scorewas developed and its performance characteristics determinedby F[employer]idel. It has not been cleared or approved by the Foodand Drug Administration.PATIENT WAS FASTINGPERFORMED BY: [employer] [address] [id number] BY: GetNinjas70 vocaltapAtrium Health Waxhaw [id number] MICROALBUMINOrdered By: Syst em Chief Innovation Officer on 11-11-2019 Albumin DL <= 20 mg/L (U) [Mass/Vol] 7.8 ug/mL Normal [facility] Work Phone: Comment on above: Test(s) 867148-IMV-U ; 270804-NJM-L; 632976-Nabtcvsoslzgq; 281754-Czxlilwkvmj, Total; 809443-IFE-T (Total); 374047-Zwrcs LDL-P; 597236-AGT Size; 074926-LE-XC Scorewas developed and its performance characteristics determinedby Fididel. It has not been cleared or approved by the Foodand Drug Administration.PATIENT WAS FASTINGPERFORMED BY: [employer] [address] [id number] BY: GetNinjas70 [facility]At[facility] [id number] Albumin/Creatinine (U) [Mass ratio] 6 {mg/g_creat} Normal 0-29 [facility] Work Phone: Comment on above: Normal: 0 - 29 Moder ately increased: 30 - 300 Severely increased: >300 Please note reference interval change Test(s) 909906-PJI-B ; 128790-QXS-O; 547252-Lkphadkygztso; 947318-Cdrrhlwgmqf, Total; 640934-SQG-V (Total); 346893-Dvtfs LDL-P; 388756-YXP Size; 526896-XX-TT Scorewas developed and its performance characteristics determinedby Fididel. It has not been cleared or approved by the Foodand Drug Administration.PATIENT WAS FASTINGPERFORMED BY: [employer] [address] [id number] BY: GetNinjas70 [facility]At[facility] [id number] Creatinine (U) [Mass/Vol] 129.4 mg/dL Normal [facility] Work Phone: Comment on above: Test(s) 981967-TYB-M ; 729407-CSD-W; 969927-Uxiwicxjjwjyt; 130353-Bhsbzgffyuo, Total; 114573-IKO-F (Total); 100355-Hfvyd LDL-P; 645943-UGU Size; 951621-ZV-BC Scorewas developed and its performance characteristics determinedby Fididel. It has not been cleared or approved by the Foodand Drug Administration.PATIENT WAS FASTINGPERFORMED BY: Mophie[address] [id number] BY: Apta BiosciencesAtrium Health W[facility] [id number] NMR Profile (92843)Ordered B y: Dry Cleaner Apprentice on 11-11-2019 Cholesterol [Mass/Vol] 179 mg/dL Normal 100-199 [facility] Work Phone: Comment on above: Test(s) 387493-FER-A ; 558355-MZF-C; 986738-Jyjxqgcxaaszq; 800376-Wbldofjipko, Total; 421254-ACX-P (Total); 067567-Qofgp LDL-P; 379159-AJT Size; 136306-UN-OU Scorewas developed and its performance characteristics determinedby Fididel. It has not been cleared or approved by the Foodand Drug Administration.PATIENT WAS FASTINGPERFORMED BY: Mophie[address] [id number] BY: RetiDiag6370 DLSAtrium Health Mercy [id number] Lipoprotein.alpha [Moles/Vol] 28.6 umol/L Abnormal [facility] Work Phone: Comment on above: Test(s) 050167-OUN-J ; 883594-DPG-X; 439232-Oszwzzmpsushl; 073389-Lxdstbnlgnx, Total; 527169-SFS-Y (Total); 391228-Kiytf LDL-P; 442435-NFC Size; 177777-BW-CX Scorewas developed and its performance characteristics determinedby Fididel. It has not been cleared or approved by the Foodand Drug Administration.PATIENT WAS FASTINGPERFORMED BY: [employer] [address] [id number] BY: MENDEZ [facility] [id number] Lipoprotein.beta.subp article [Entitic length] 19.6 nm Abnormal [facility] [...] not afterLDL-P is taken into account. Test(s) 636355-KHZ-U ; 306750-LIU-F; 820314-Tnjzibrspxwns; 819522-Wryqhtmyoyd, Total; 905486-CLZ-N (Total); 362757-Bqnol LDL-P; 444879-NUC Size; 698074-RI-VT Scorewas developed and its performance characteristics determinedby F[employer]idel. It has not been cleared or approved by the Foodand Drug Administration.PATIENT WAS FASTINGPERFORMED BY: [employer] [address] [id number] BY: GetNinjas70 [facility] [id number] Lipoprotein.beta.subp article [Moles/Vol] 1318 nmol/L Abnormal [facility] Internal Medicine Work Phone: Comment on above: Low < 1000 Moderate 1000 - 1299 Borderline-High 1300 - 1599 High 1600 - 2000 Very High > 2000 Test(s) 777308-XNW-B ; 781333-TIO-Y; 094756-Vfrnwxgznmvaq; 255090-Wpxomnpkoij, Total; 187063-PDU-V (Total); 578677-Jxphq LDL-P; 617993-CMZ Size; 185362-VD-KT Scorewas developed and its performance characteristics determinedby Fididel. It has not been cleared or approved by the Foodand Drug Administration.PATIENT WAS FASTINGPERFORMED BY: [employer] [address] [id number] BY: RetiDiag6370 [facility] [id number] Lipoprotein.beta.subp article.small [Moles/Vol] 1005 nmol/L Abnormal [facility] Work Phone: Comment on above: Test(s) 711861-SZV-U ; 534938-VRA-I; 706042-Pxqubninvibdj; 499785-Ydbolccgzvw, Total; 959732-OFS-H (Total); 660089-Tvvhu LDL-P; 586811-HPQ Size; 488430-PT-VR Scorewas developed and its performance characteristics determinedby Fididel. It has not been cleared or approved by the Foodand Drug Administration.PATIENT WAS FASTINGPERFORMED BY: [employer] [address] [id number] BY: netFactor Oyylds0421 [facility] [id number] Triglyceride [Mass/Vol] 246 mg/dL Abnormal 0-149 [facility] Work Phone: Comment on above: Test(s) 002795-GTS-O ; 550282-CQK-V; 070224-Vhwuuighsvlfs; 913685-Lihfuiwmobr, Total; 731036-NND-G (Total); 461659-Ehnji LDL-P; 596756-IIN Size; 193794-TB-KQ Scorewas developed and its performance characteristics determinedby F[employer]idel. It has not been cleared or approved by the Foodand Drug Administration.PATIENT WAS FASTINGPERFORMED BY: Gainsight[address] [id number] BY: Conecta 2 Wxypdz4393 DLSAtrium Health Mercy [id number] NMR Profile (91638) 30 mg/dL Abnormal [facility] Internal Medicine Work Phone: Comment on above: Test(s) 582657-IDR-R ; 132466-ATQ-N; 744083-Mihyvbuvwqbot; 245486-Ceotipheseh, Total; 884423-MBS-X (Total); 148890-Tjzyc LDL-P; 961443-RDC Size; 520664-XW-OJ Scorewas developed and its performance characteristics determinedby Fididel. It has not been cleared or approved by the Foodand Drug Administration.PATIENT WAS FASTINGPERFORMED BY: [employer] [address] [id number] BY: GetNinjas70 [facility]LSAtrium Health Mercy [id number] NMR Profile (34435) 106 mg/dL Abnormal 0-99 [facility] Internal Medicine Work Phone: Comment on above: . Optimal < 100 Abov e optimal 100 - 129 Borderline 130 - 159 High 160 - 189 Very high > 189 . Test(s) 544015-JIE-D ; 322887-LWI-N; 329850-Eokafyplamgmt; 266318-Pmptdhcnxek, Total; 850550-BVN-W (Total); 226251-Evzfq LDL-P; 612235-LZI Size; 678278-SV-KY Scorewas developed and its performance characteristics determinedby Fididel. It has not been cleared or approved by the Foodand Drug Administration.PATIENT WAS FASTINGPERFORMED BY: [employer] [address] [id number] BY: GetNinjas70 [facility] TherapeuticsAt[facility] [id number] NMR Profile (73580) 246 mg/dL Abnormal 0-149 [facility] Medicine; [facility] Work Phone: NMR Profile (26092) 179 mg/dL Normal 100-199 Compr ens[facility] Medicine; [facility] Work Phone: TSH (THYROID STIMULATING HOR BRYN) (72382)Ordered By: Dry Cleaner Apprentice on 11-11-2019 TSH Qn 3.810 {uIU/mL} Normal 0.450-4.50 0 [facility] Work Phone: Comment on above: Test(s) 643456-ZJX-R ; 124132-CSY-N; 334896-Qidmdygootjvi; 037100-Mgtgwtbhujh, Total; 439605-FCP-X (Total); 194063-Cpfug LDL-P; 766052-TVV Size; 291555-TR-KJ Scorewas developed and its performance characteristics determinedby [employer]. It has not been cleared or approved by the Foodand Drug Administration.PATIENT WAS FASTINGPERFORMED BY: [facility] [address] [id number] BY: [facility] Fvggcc6529 [facility] [id number] Blood Glucose , Office ([phone])Ordered By: Angelica Meneses on 07-22-2019 Glucose Glucometer (BldC) [Moles/Vol] 167 1 Normal [facility] Work Phone: HgA1C , Office ([phone])Ordere d By: Marva Wang on 07-22-2019 HbA1c (Bld) [Mass fraction] 7.0 % Normal 4.6 - 7.1 [facility] Work Phone: SARS-CoV-2 Antibody, IgGOrde red By: Dry Cleaner Apprentice on 07-22-2019 SARS-CoV-2 Antibody, IgG Negative Normal [facility] Work Phone: Comment on above: This sample does not contain detectable SARS-CoV-2 IgG antibodies.This negative result does not rule out SARS-CoV-2 infection.Correlation with epidemiologic risk factors and other clinical andlaboratory findings is recommended. Serologic results should not beused as the sole basis to diagnose or exclude recent YWJR-EmQ-0dxzbucczw.This assay was performed using the Pina SARS-CoV-2 IgG assay. Test(s) 200328-EYKI- CoV-2 Antibody, IgGhas not been FDA cleared [...] any otherviruses or pathogens.PATIENT NOT FASTINGPERFORMED BY: [facility] ImagingAtrium Health Mercy [id number] SARS-CoV-2 Antibody, IgG Negative Normal [facility]; [facility] Work Phone: Comment on above: This sample does not contain detectable SARS-CoV-2 IgG antibodies.This negative result does not rule out SARS-CoV-2 infection.Correlation with epidemiologic risk factors and other clinical andlaboratory findings is recommended. Serologic results should not beused as the sole basis to diagnose or exclude recent FTMZ-BwN-8cfkqmufys.This assay was performed using the Pina SARS-CoV-2 IgG assay. Test(s) 466391-UOEX- CoV-2 Antibody, IgGhas not been FDA cleared [...] any otherviruses or pathogens.PATIENT NOT FASTINGPERFORMED BY: [facility] Micro ImagingDublin [place] [id number] CALCIFIDIOL (56726) VIT D 25 Ordered By: Dry Cleaner Apprentice on 06-24-2019 25-Hydroxyvitamin D2+25-Hydroxyvitamin D3 [Mass/Vol] 45.6 ng/mL Normal 30.0-100.0 [facility] Work Phone: Comment on above: Vitamin D deficiency has been defined by the [place] ofMedicine and an Endocrine Society practice guideline as alevel of serum 25-OH vitamin D less than 20 ng/mL (1,2).The Endocrine Society went on to further define vitamin Dinsufficiency as a level between 21 and 29 ng/mL (2).1. IOM ([place] of Medicine). 2010. Dietary reference intakes for calcium and D. [place]: The National Academies Press.2. Magno MF, Do MILES, Jos PRATER, et al. Evaluation, treatment, and prevention of vitamin D deficiency: an Endocrine Society clinical practice guideline. JCEM. 2010; 96(7):1911-30. Test(s) 134822-AIF-M ; 887163-FVW-R; 711558-YEP-I; 534336-Idzggeddxlhjf; 704696-Ukumotrhmgy, Total; 562357-XLJ-L (Total);512625-Lkqan LDL-P; 680766-SPF Size; 629123-QN-BH Scorewas developed and its performance characteristics determinedby Fididel. It has not been cleared or approved by the Foodand Drug Administration.PATIENT WAS FASTINGPERFORMED BY: [employer] [address] [id number] BY: MENDEZ C[facility] 2[facility] Medical CenterVmivfp7823 [facility] [id number] CBC W/AUTO DIFF WBC (60671)O rdered By: Dry Cleaner Apprentice on 06-24-2019 Basophils (Bld) [#/Vol] 0.0 {x10E3/uL} Normal 0.0-0.2 [facility] Work Phone: Comment on above: Test(s) 344656-MME-T ; 192175-GJZ-T; 456209-JIT-I; 609122-Jbxzwulputncm; 486137-Pcymldxpusy, Total; 390077-KPM-G (Total);500041-Agwep LDL-P; 574463-CWM Size; 701151-IR-ZA Scorewas developed and its performance characteristics determinedby Fididel. It has not been cleared or approved by the Foodand Drug Administration.PATIENT WAS FASTINGPERFORMED BY: [employer] [address] [id number] BY: GetNinjas70 [facility] [id number] Basophils (Bld) [#/Vol] 0.0 10*3/uL Normal 0.0-0.2 [facility]; [facility] Work Phone: Comment on above: Test(s) 371186-UZJ-F ; 478374-KKF-U; 286932-GAW-V; 587018-Runqqwljslhno; 882032-Bggzpanznow, Total; 325591-CXQ-G (Total);035982-Nrchr LDL-P; 655169-VET Size; 132520-XO-TM Scorewas developed and its performance characteristics determinedby Fididel. It has not been cleared or approved by the Foodand Drug Administration.PATIENT WAS FASTINGPERFORMED BY: [employer] [address] [id number] BY: RetiDiag6370 [facility] [id number] Basophils/100 WBC (Bld) 1 % Normal [facility] Work Phone: Comment on above: Test(s) 611392-EVO-S ; 438004-DTI-K; 208004-TLX-E; 537401-Bqliewsuczbop; 440022-Oaywgselssl, Total; 649598-EFL-Z (Total);776793-Wcikw LDL-P; 057922-EEL Size; 501309-HN-VY Scorewas developed and its performance characteristics determinedby Fididel. It has not been cleared or approved by the Foodand Drug Administration.PATIENT WAS FASTINGPERFORMED BY: [employer] [address] [id number] BY: GetNinjas70 [facility] [id number] Eosinophils (Bld) [#/Vol] 0.1 {x10E3/uL} Normal 0.0-0.4 [facility] Work Phone: Comment on above: Test(s) 937638-ZWA-W ; 370224-CWY-D; 078595-YDD-R; 497799-Qqlltpewhoeub; 112175-Ixohgcytfuz, Total; 898928-QSB-V (Total);801185-Uuzan LDL-P; 752995-JBR Size; 730708-PP-EA Scorewas developed and its performance characteristics determinedby Fididel. It has not been cleared or approved by the Foodand Drug Administration.PATIENT WAS FASTINGPERFORMED BY: [employer] [address] [id number] BY: GetNinjas70 [facility] [id number] Eosinophils (Bld) [#/Vol] 0.1 10*3/uL Normal 0.0-0.4 [facility]; [facility] Work Phone: Comment on above: Test(s) 466986-DUS-C ; 680855-LIX-Q; 283181-CYF-I; 701186-Kbzgmrlbfhwpd; 665478-Nnscnpzsqvk, Total; 515319-VRE-I (Total);320422-Ifugw LDL-P; 619559-QUG Size; 069253-YM-TP Scorewas developed and its performance characteristics determinedby Fididel. It has not been cleared or approved by the Foodand Drug Administration.PATIENT WAS FASTINGPERFORMED BY: [employer] [address] [id number] BY: FOURward Thought Lcnaeh7358 [facility] [id number] Eosinophils/100 WBC (Bld) 3 % Normal [facility] Work Phone: Comment on above: Test(s) 355930-MFM-A ; 533297-XZU-J; 286247-XUX-F; 175537-Wgrdkxlcgbxgi; 219585-Sdyiwgfjdar, Total; 320995-DSJ-D (Total);864238-Haxop LDL-P; 208957-ZCF Size; 696506-JO-CS Scorewas developed and its performance characteristics determinedby Fididel. It has not been cleared or approved by the Foodand Drug Administration.PATIENT WAS FASTINGPERFORMED BY: [employer] [address] [id number] BY: Conecta 2 Mloohz1433 [facility] [id number] Erythrocyte distribution width (RBC) [Ratio] 14.2 % Normal 11.6-15.4 [facility] Work Phone: Comment on above: Test(s) 183100-HYK-Q ; 133046-HQB-I; 796343-QII-T; 626596-Rnntchzfnjbjr; 121266-Vyetmcxpkle, Total; 902348-CFW-W (Total);220812-Manbb LDL-P; 745881-VVK Size; 087323-NU-ZY Scorewas developed and its performance characteristics determinedby Fididel. It has not been cleared or approved by the Foodand Drug Administration.PATIENT WAS FASTINGPERFORMED BY: [employer] [address] [id number] BY: ascentify6370 [facility] [id number] Hematocrit (Bld) [Volume fraction] 45.2 % Normal 37.5-51.0 [facility] Work Phone: Comment on above: Test(s) 576758-FIA-W ; 773424-FLF-Y; 979804-MOE-N; 086655-Lhudtjdaoosmk; 759001-Kdkfubkdqdt, Total; 196769-COP-L (Total);202811-Vsgcu LDL-P; 451562-GQK Size; 968560-FI-IZ Scorewas developed and its performance characteristics determinedby Fididel. It has not been cleared or approved by the Foodand Drug Administration.PATIENT WAS FASTINGPERFORMED BY: [employer] [address] [id number] BY: Checkr70 [facility] [id number] Hemoglobin (Bld) [Mass/Vol] 14.9 g/dL Normal 13.0-17.7 [facility] Work Phone: Comment on above: Test(s) 197756-ZEE-E ; 230661-EXW-V; 386521-GXA-W; 658273-Vpqmtppcjatlm; 904605-Ksyxejwhlku, Total; 573829-DXD-Y (Total);191420-Wizpn LDL-P; 986574-CKA Size; 944220-QI-BG Scorewas developed and its performance characteristics determinedby Fididel. It has not been cleared or approved by the Foodand Drug Administration.PATIENT WAS FASTINGPERFORMED BY: [employer] [address] [id number] BY: ascentify6370 [facility] [id number] Immature granulocytes (Bld) [#/Vol] 0.0 {x10E3/uL} Normal 0.0-0.1 [facility] Work Phone: Comment on above: Test(s) 603668-HRR-O ; 447393-OTW-D; 727784-BKS-M; 517753-Ohnhlhdsptnti; 844735-Aubiflpgvhz, Total; 386879-IFL-L (Total);372192-Uqxwu LDL-P; 361292-WUQ Size; 642651-OV-EQ Scorewas developed and its performance characteristics determinedby Fididel. It has not been cleared or approved by the Foodand Drug Administration.PATIENT WAS FASTINGPERFORMED BY: [employer] [address] [id number] BY: Conecta 2[facility] Medical CenterStgvmr8128 [facility] [id number] Immature granulocytes (Bld) [#/Vol] 0.0 10*3/uL Normal 0.0-0.1 [facility]; [facility] Work Phone: Comment on above: Test(s) 103119-NXT-Z ; 799426-CCZ-O; 845204-KKC-N; 156557-Bdjexpswtuwfe; 212039-Iyjyqlubjib, Total; 374022-MWL-C (Total);576515-Ylzwj LDL-P; 420835-NMP Size; 459398-UC-UM Scorewas developed and its performance characteristics determinedby Fididel. It has not been cleared or approved by the Foodand Drug Administration.PATIENT WAS FASTINGPERFORMED BY: [employer] [address] [id number] BY: Checkr70 [facility] [id number] Immature granulocytes/100 WBC (Bld) 0 % Normal [facility] Work Phone: Comment on above: Test(s) 772634-NDT-X ; 969540-KVH-O; 525208-KPN-C; 723024-Ywqqcpmmpqgif; 037478-Dgoaoyophdu, Total; 103757-WEL-K (Total);415073-Hkokb LDL-P; 413739-XAZ Size; 761222-HW-QU Scorewas developed and its performance characteristics determinedby Fididel. It has not been cleared or approved by the Foodand Drug Administration.PATIENT WAS FASTINGPERFORMED BY: [employer] [address] [id number] BY: RetiDiag6370 [facility] [id number] Lymphocytes (Bld) [#/Vol] 1.7 {x10E3/uL} Normal 0.7-3.1 [facility] Work Phone: Comment on above: Test(s) 712894-QQW-L ; 024052-TXV-P; 303905-XIZ-N; 849921-Jgkqsdaxfylzc; 480705-Atgrqtkzdfb, Total; 087036-RZL-R (Total);371372-Ylvil LDL-P; 834466-GIF Size; 378573-QG-NB Scorewas developed and its performance characteristics determinedby Fididel. It has not been cleared or approved by the Foodand Drug Administration.PATIENT WAS FASTINGPERFORMED BY: [employer] [address] [id number] BY: RetiDiag6370 [facility] [id number] Lymphocytes (Bld) [#/Vol] 1.7 10*3/uL Normal 0.7-3.1 [facility]; [facility] Work Phone: Comment on above: Test(s) 586595-QIE-N ; 570170-INS-S; 254442-TIO-V; 769468-Vcezfjcoqnlbl; 295234-Ghwbivflkxy, Total; 347201-TOT-Q (Total);571583-Jvutl LDL-P; 583334-UIC Size; 099501-AT-XM Scorewas developed and its performance characteristics determinedby Fididel. It has not been cleared or approved by the Foodand Drug Administration.PATIENT WAS FASTINGPERFORMED BY: Mophie[address] [id number] BY: RetiDiag6370 [facility] [id number] Lymphocytes/100 WBC (Bld) 37 % Normal [facility] Work Phone: Comment on above: Test(s) 557994-FGH-U ; 687256-GVP-E; 124086-RLX-Y; 984762-Jupttwqmbmywj; 018756-Qfshqixymax, Total; 268938-XOB-O (Total);424606-Egkcu LDL-P; 446234-YVG Size; 164935-YB-BR Scorewas developed and its performance characteristics determinedby Fididel. It has not been cleared or approved by the Foodand Drug Administration.PATIENT WAS FASTINGPERFORMED BY: [employer] [address] [id number] BY: RetiDiag6370 [facility]rapeutics[facility] [id number] MCH (RBC) [Entitic mass] 27.5 pg Normal 26.6-33.0 [facility] Work Phone: Comment on above: Test(s) 795602-MKF-X ; 014798-VPA-B; 159165-ADA-N; 385230-Vlixsewotiatj; 906152-Vhcouangqpo, Total; 474304-BPD-P (Total);036996-Qlnwx LDL-P; 531546-UAI Size; 947436-BI-AN Scorewas developed and its performance characteristics determinedby Fididel. It has not been cleared or approved by the Foodand Drug Administration.PATIENT WAS FASTINGPERFORMED BY: [employer] [address] [id number] BY: Conecta 2 Qsxmit1782 [facility] [id number] MCHC (RBC) [Mass/Vol] 33.0 g/dL Normal 31.5-35.7 [facility] Internal Medicine Work Phone: Comment on above: Test(s) 182409-IUN-Y ; 983659-VJG-J; 662498-VLY-G; 058380-Gzjzphkfnppsd; 335762-Fvxiedwxzir, Total; 512083-MPK-H (Total);945463-Bsjrh LDL-P; 004177-ZJQ Size; 294243-HW-KW Scorewas developed and its performance characteristics determinedby Fididel. It has not been cleared or approved by the Foodand Drug Administration.PATIENT WAS FASTINGPERFORMED BY: [employer] [address] [id number] BY: RetiDiag6370 [facility] [id number] MCV (RBC) [Entitic vol] 83 fL Normal 79-97 [facility] Internal Medicine Work Phone: Comment on above: Test(s) 673629-FOZ-B ; 826976-YHM-L; 765102-NIK-X; 622668-Kzzbpqhzhcwjq; 107180-Apssmmnlwjt, Total; 546684-ZQL-B (Total);903474-Kualt LDL-P; 802220-INT Size; 135404-GN-TM Scorewas developed and its performance characteristics determinedby Fididel. It has not been cleared or approved by the Foodand Drug Administration.PATIENT WAS FASTINGPERFORMED BY: [employer] [address] [id number] BY: GetNinjas70 [facility] [id number] Monocytes (Bld) [#/Vol] 0.3 {x10E3/uL} Normal 0.1-0.9 [facility] Work Phone: Comment on above: Test(s) 115563-GTU-V ; 559243-ZYL-T; 988263-MOW-Y; 729839-Ctrvltnfekfin; 754792-Ikvksqpwxdd, Total; 574500-EUQ-K (Total);810747-Gsjuw LDL-P; 602176-TBY Size; 908295-RD-FX Scorewas developed and its performance characteristics determinedby Fididel. It has not been cleared or approved by the Foodand Drug Administration.PATIENT WAS FASTINGPERFORMED BY: Mophie[address] [id number] BY: RetiDiag6370 [facility] [id number] Monocytes (Bld) [#/Vol] 0.3 10*3/uL Normal 0.1-0.9 [facility]; [facility] Work Phone: Comment on above: Test(s) 484829-VOL-M ; 178406-RGD-U; 337371-IXI-E; 002521-Zvfwsatdjfdsv; 133404-Spjrytwelvj, Total; 264788-ZVO-Y (Total);391526-Vuqam LDL-P; 228278-MKA Size; 161178-FW-MX Scorewas developed and its performance characteristics determinedby Fididel. It has not been cleared or approved by the Foodand Drug Administration.PATIENT WAS FASTINGPERFORMED BY: [employer] [address] [id number] BY: RetiDiag6370 [facility] [id number] Monocytes/100 WBC (Bld) 7 % Normal [facility] Work Phone: Comment on above: Test(s) 117372-FBM-L ; 115402-SMM-G; 610300-VRR-R; 335677-Qouculanfzbvf; 802765-Gcyaopscixy, Total; 813766-WCA-M (Total);261267-Qplxn LDL-P; 526620-TGU Size; 600414-UJ-KM Scorewas developed and its performance characteristics determinedby Fididel. It has not been cleared or approved by the Foodand Drug Administration.PATIENT WAS FASTINGPERFORMED BY: [employer] [address] [id number] BY: Conecta 2[facility] CenterNcuajy0481 [facility] [id number] Neutrophils (Bld) [#/Vol] 2.5 {x10E3/uL} Normal 1.4-7.0 [facility] Work Phone: Comment on above: Test(s) 272450-QPU-O ; 039934-YGE-Y; 110298-ZUC-D; 997102-Nxztttxwiidyz; 001418-Wcqforcrzxm, Total; 186840-ZBT-Z (Total);681460-Dvlvw LDL-P; 544715-RRF Size; 177823-HQ-GF Scorewas developed and its performance characteristics determinedby Fididel. It has not been cleared or approved by the Foodand Drug Administration.PATIENT WAS FASTINGPERFORMED BY: [employer] [address] [id number] BY: Conecta 2[facility] HospitalRyowhx4437 [facility] [id number] Neutrophils (Bld) [#/Vol] 2.5 10*3/uL Normal 1.4-7.0 [facility]; [facility] Work Phone: Comment on above: Test(s) 600415-PRV-T ; 887730-PXK-L; 920340-FLA-P; 408272-Qucjstakfamji; 823342-Eoolnjtedur, Total; 854448-TKC-N (Total);011126-Sichc LDL-P; 085114-IMF Size; 871899-IP-HZ Scorewas developed and its performance characteristics determinedby Fididel. It has not been cleared or approved by the Foodand Drug Administration.PATIENT WAS FASTINGPERFORMED BY: [employer] [address] [id number] BY: RetiDiag6370 [facility] [id number] Neutrophils/100 WBC (Bld) 52 % Normal [facility] Work Phone: Comment on above: Test(s) 715719-MCF-T ; 825254-RCK-M; 588830-USD-Q; 547276-Bgrxavotntpci; 076258-Hjdivslmcqw, Total; 843651-YJI-Q (Total);282903-Ywsct LDL-P; 177698-GNH Size; 473567-YO-RV Scorewas developed and its performance characteristics determinedby Fididel. It has not been cleared or approved by the Foodand Drug Administration.PATIENT WAS FASTINGPERFORMED BY: Mophie[address] [id number] BY: RetiDiag6370 [facility] [id number] Platelets (Bld) [#/Vol] 268 {x10E3/uL} Normal 150-450 [facility] Work Phone: Comment on above: Test(s) 605939-KRA-K ; 194367-NQI-S; 554048-RPW-N; 096877-Byhyzzgrwadii; 141103-Pjwroxwtawh, Total; 680830-KNX-Z (Total);996852-Jehdi LDL-P; 588598-CCL Size; 993302-OG-FB Scorewas developed and its performance characteristics determinedby Fididel. It has not been cleared or approved by the Foodand Drug Administration.PATIENT WAS FASTINGPERFORMED BY: [employer] [address] [id number] BY: RetiDiag6370 [facility] [id number] Platelets (Bld) [#/Vol] 268 10*3/uL Normal 150-450 [facility]; [facility] Work Phone: Comment on above: Test(s) 711140-FOB-P ; 198316-NXN-T; 591700-IPA-W; 912181-Pbucwzbjinznd; 399837-Qtwmajnjkmc, Total; 926179-JZA-M (Total);183435-Kagug LDL-P; 983930-VEF Size; 591779-SW-SV Scorewas developed and its performance characteristics determinedby Fididel. It has not been cleared or approved by the Foodand Drug Administration.PATIENT WAS FASTINGPERFORMED BY: [employer] [address] [id number] BY: Fididel Riksvy3511 [facility] [id number] RBC (Bld) [#/Vol] 5.42 {x10E6/uL} Normal 4.14-5.80 [facility] Internal Medicine Work Phone: Comment on above: Test(s) 435015-UNO-W ; 557906-CHD-S; 012047-FGD-Y; 663193-Xxxabdjrovzbz; 091794-Erptgnfqdtz, Total; 113823-DYH-M (Total);948496-Efsmd LDL-P; 893095-OXB Size; 922266-VG-QC Scorewas developed and its performance characteristics determinedby Fididel. It has not been cleared or approved by the Foodand Drug Administration.PATIENT WAS FASTINGPERFORMED BY: Mophie[address] [id number] BY: Fididel Aiwbql5455 [facility] [id number] RBC (Bld) [#/Vol] 5.42 10*6/uL Normal 4.14-5.80 [facility] Internal Medicine; [facility] Internal Medicine Work Phone: Comment on above: Test(s) 081873-HDH-N ; 974936-HML-G; 144782-FQX-W; 100593-Uoxzrzzweqbyt; 480754-Qxmqjlavlzz, Total; 451972-KMT-X (Total);358154-Zofbh LDL-P; 327172-TEX Size; 619203-LY-PQ Scorewas developed and its performance characteristics determinedby Fididel. It has not been cleared or approved by the Foodand Drug Administration.PATIENT WAS FASTINGPERFORMED BY: Mophie[address] [id number] BY: RetiDiag6370 [facility] [id number] WBC (Bld) [#/Vol] 4.7 {x10E3/uL} Normal 3.4-10.8 [facility] Internal Medicine Work Phone: Comment on above: Test(s) 441992-FLP-D ; 668889-ZLG-Q; 457448-QIH-O; 162921-Isvhfynhfalcc; 947167-Xcubhtmebyx, Total; 786001-JVE-Y (Total);271158-Ubjns LDL-P; 163798-XBN Size; 681852-HK-ZK Scorewas developed and its performance characteristics determinedby Fididel. It has not been cleared or approved by the Foodand Drug Administration.PATIENT WAS FASTINGPERFORMED BY: [employer] [address] [id number] BY: RetiDiag6370 [facility] [id number] WBC (Bld) [#/Vol] 4.7 10*3/uL Normal 3.4-10.8 [facility] Internal Medicine; [facility] Internal Medicine Work Phone: Comment on above: Test(s) 437916-MVJ-D ; 122490-GVH-Z; 349558-FCE-F; 943732-Qfvijjteainxt; 150556-Ymmfyycqewr, Total; 527219-SSL-N (Total);241410-Ipahm LDL-P; 920334-DGT Size; 073911-UV-BB Scorewas developed and its performance characteristics determinedby Fididel. It has not been cleared or approved by the Foodand Drug Administration.PATIENT WAS FASTINGPERFORMED BY: [employer] [address] [id number] BY: RetiDiag6370 [facility] [id number] METABOLIC PANEL, COMPREHENSI VE (40276)Ordered By: Dry Cleaner Apprentice on 06-24-2019 Albumin [Mass/Vol] 4.4 g/dL Normal 3.8-4.9 [facility] Internal Medicine Work Phone: Comment on above: Test(s) 203348-VXU-O ; 395349-DCK-Q; 959244-FKO-V; 385066-Qzeidkmswebxv; 045286-Lfpzhwhoelf, Total; 334117-NVF-W (Total);168078-Qvrys LDL-P; 479488-WND Size; 028209-RT-VN Scorewas developed and its performance characteristics determinedby Fididel. It has not been cleared or approved by the Foodand Drug Administration.PATIENT WAS FASTINGPERFORMED BY: [employer] [address] [id number] BY: GetNinjas70 [facility] [id number] Albumin/Globulin [Mass ratio] 1.6 {ratio} Normal 1.2-2.2 [facility] Work Phone: Comment on above: Test(s) 803067-OWH-P ; 750793-OPH-M; 240890-HCI-T; 728837-Lhumrvogagpyi; 829160-Ojldyolaukb, Total; 194004-EOV-Y (Total);548648-Mslec LDL-P; 649154-NJA Size; 320909-WN-MJ Scorewas developed and its performance characteristics determinedby Fididel. It has not been cleared or approved by the [employer] Administration.PATIENT WAS FASTINGPERFORMED BY: Fididel [address] [id number] BY: RetiDiag6370 [facility] [id number] ALP [Catalytic activity/Vol] 49 [iU]/L Normal 39-117 [facility] Work Phone: Comment on above: Test(s) 311657-BIX-Z ; 937941-WNT-Q; 100180-VQN-O; 791971-Wfbnvmcgudjyv; 916776-Srucozwxcaq, Total; 974419-LAI-Y (Total);991885-Gzstu LDL-P; 660887-UUB Size; 306470-JI-YK Scorewas developed and its performance characteristics determinedby Fididel. It has not been cleared or approved by the Foodand Drug Administration.PATIENT WAS FASTINGPERFORMED BY: Conecta [address] [id number] BY: Conecta 2[facility] CenterNswjbv2662 [facility] [id number] ALP [Catalytic activity/Vol] 49 U/L Normal 39-117 [facility]; [facility] Work Phone: Comment on above: Test(s) 346721-FPB-C ; 185456-GRW-Z; 804776-BZB-Y; 420121-Knrtzvygjefnv; 647057-Qjmbufphssb, Total; 512255-ENN-G (Total);106179-Xgvgg LDL-P; 090501-XXR Size; 752854-JD-AQ Scorewas developed and its performance characteristics determinedby Fididel. It has not been cleared or approved by the Foodand Drug Administration.PATIENT WAS FASTINGPERFORMED BY: [employer] [address] [id number] BY: FOURward Thought Hqfhwj3137 [facility] [id number] ALT [Catalytic activity/Vol] 94 [iU]/L Abnormal 0-44 [facility] Work Phone: Comment on above: Test(s) 876391-TJR-K ; 814318-VWF-S; 276628-SHK-A; 758651-Lxqtvytewbsar; 412247-Vijuyvwrbiq, Total; 502775-TYL-P (Total);339687-Udgsk LDL-P; 776926-SWQ Size; 540591-TT-OD Scorewas developed and its performance characteristics determinedby Fididel. It has not been cleared or approved by the Foodand Drug Administration.PATIENT WAS FASTINGPERFORMED BY: Conecta [address] [id number] BY: Cone[place]a 2[facility] CenterVrzsip0447 [facility] [id number] ALT [Catalytic activity/Vol] 94 U/L Abnormal 0-44 [facility]; [facility] Work Phone: Comment on above: Test(s) 938945-YVS-N ; 112496-ORO-R; 801673-DAK-X; 645356-Itanntouizvla; 481015-Vfvhfknxctl, Total; 963429-CWA-N (Total);356739-Tohdd LDL-P; 381008-KZY Size; 511663-QC-MU Scorewas developed and its performance characteristics determinedby Fididel. It has not been cleared or approved by the Foodand Drug Administration.PATIENT WAS FASTINGPERFORMED BY: Conecta [address] [id number] BY: Conecta 2[place] 9952870 [facility] [id number] AST [Catalytic activity/Vol] 49 [iU]/L Abnormal 0-40 [facility] Internal Medicine Work Phone: Comment on above: Test(s) 733455-OCO-O ; 443070-WVY-F; 372192-SSI-S; 797243-Dgqgkgfskcycc; 447527-Qaakzbwunde, Total; 333334-SGM-E (Total);335109-Pdvjm LDL-P; 858237-ZGH Size; 817744-KE-QC Scorewas developed and its performance characteristics determinedby Fididel. It has not been cleared or approved by the Foodand Drug Administration.PATIENT WAS FASTINGPERFORMED BY: Conecta [address] [id number] BY: Conecta 2[facility] CenterDiiptq0482 [facility] [id number] AST [Catalytic activity/Vol] 49 U/L Abnormal 0-40 [facility]; [facility] Work Phone: Comment on above: Test(s) 022775-FNT-T ; 938822-YDX-X; 486798-YXW-T; 835641-Hapxxmglzwcgz; 248947-Covtpsqwebm, Total; 076593-VZJ-B (Total);811372-Snkal LDL-P; 006293-QGY Size; 914537-HV-FM Scorewas developed and its performance characteristics determinedby Fididel. It has not been cleared or approved by the Foodand Drug Administration.PATIENT WAS FASTINGPERFORMED BY: Conecta [address] [id number] BY: FOURward Thought Gehkxq1340 vocaltapAt[facility] Health [facility] [id number] Bilirubin [Mass/Vol] 0.7 mg/dL Normal 0.0-1.2 [facility] Internal Medicine Work Phone: Comment on above: Test(s) 686900-MGJ-I ; 922259-IYR-G; 823463-GBA-H; 321147-Ojwycbvyezlme; 800997-Stkjtndiqdp, Total; 050011-XVP-V (Total);119836-Bwhpe LDL-P; 543523-MZZ Size; 783558-DQ-PM Scorewas developed and its performance characteristics determinedby Fididel. It has not been cleared or approved by the Foodand Drug Administration.PATIENT WAS FASTINGPERFORMED BY: [employer] [address] [id number] BY: RetiDiag6370 [facility]altapAt[facility] Health [facility] [id number] Calcium [Mass/Vol] 9.1 mg/dL Normal 8.7-10.2 [facility] Work Phone: Comment on above: Test(s) 909066-WSO-T ; 249435-YFM-R; 808500-GOY-Q; 219399-Xleuzxfktzdpp; 326609-Karcgfjiuri, Total; 454079-DWF-E (Total);972406-Aqzlq LDL-P; 558545-LPD Size; 536510-CM-WG Scorewas developed and its performance characteristics determinedby Fididel. It has not been cleared or approved by the Foodand Drug Administration.PATIENT WAS FASTINGPERFORMED BY: [employer] [address] [id number] BY: RetiDiag6370 [facility] Dem[facility] TherapeuticsAt[facility] [id number] Chloride [Moles/Vol] 100 mmol/L Normal 96-106 [facility] Internal Medicine Work Phone: Comment on above: Test(s) 816093-JKV-A ; 316403-YXP-O; 427751-ZMH-W; 894929-Mymfybgzwctov; 683624-Qcjkqdrjwdn, Total; 731376-IXQ-Y (Total);074231-Fcfpf LDL-P; 200292-PZX Size; 994308-LN-WN Scorewas developed and its performance characteristics determinedby Fididel. It has not been cleared or approved by the Foodand Drug Administration.PATIENT WAS FASTINGPERFORMED BY: Mophie[address] [id number] BY: RetiDiag6370 [facility] [id number] CO2 [Moles/Vol] 22 mmol/L Normal 20-29 [facility] Internal Medicine Work Phone: Comment on above: Test(s) 378313-VIE-D ; 350168-DGX-W; 887175-JQF-F; 281653-Lppnshyslttae; 087170-Xbvytxtzkab, Total; 004295-MJO-E (Total);209669-Gupyo LDL-P; 793941-CNX Size; 139933-UF-VZ Scorewas developed and its performance characteristics determinedby Fididel. It has not been cleared or approved by the Foodand Drug Administration.PATIENT WAS FASTINGPERFORMED BY: Mophie[address] [id number] BY: netFactor Ryxsot3870 [facility] [id number] Creatinine [Mass/Vol] 0.96 mg/dL Normal 0.76-1.27 [facility] Internal Medicine Work Phone: Comment on above: Test(s) 371952-TMM-V ; 375460-KGZ-L; 936096-RMF-I; 663406-Sbvuloxppkffq; 116727-Mytjayzukdh, Total; 262963-ZFJ-E (Total);007507-Pxjgn LDL-P; 760597-GER Size; 151221-MV-MD Scorewas developed and its performance characteristics determinedby Fididel. It has not been cleared or approved by the Foodand Drug Administration.PATIENT WAS FASTINGPERFORMED BY: Mophie[address] [id number] BY: RetiDiag6370 vocaltapAtrium Health [facility] [id number] GFR/1.73 sq M predicted among blacks CKD-EPI (S/P/Bld) [Vol rate/Area] 105 mL/min/1.73 Normal [facility] Work Phone: Comment on above: Test(s) 923003-VPU-S ; 489499-CTN-A; 376939-HWV-O; 612606-Mhfovuhqwsgps; 326648-Ndbrbshluwt, Total; 693948-AZC-E (Total);132171-Rsgge LDL-P; 779820-IFW Size; 184553-NO-UB Scorewas developed and its performance characteristics determinedby Fididel. It has not been cleared or approved by the Foodand Drug Administration.PATIENT WAS FASTINGPERFORMED BY: [employer] [address] [id number] BY: GetNinjas70 [facility] Demand TherapeuticsAt[facility] [id number] GFR/1.73 sq M predicted among non-blacks CKD-EPI (S/P/Bld) [Vol rate/Area] 91 mL/min/1.73 Normal [facility] Work Phone: Comment on above: Test(s) 329888-QNX-N ; 391341-DII-W; 560747-OAU-K; 455017-Jsdyjinfjcsrz; 150164-Mvstkjdxqdo, Total; 289092-SOP-W (Total);866898-Jskrz LDL-P; 146830-CFF Size; 480192-CF-CN Scorewas developed and its performance characteristics determinedby Fididel. It has not been cleared or approved by the Foodand Drug Administration.PATIENT WAS FASTINGPERFORMED BY: [employer] [address] [id number] BY: GetNinjas70 [facility] [id number] Globulin (S) [Mass/Vol] 2.7 g/dL Normal 1.5-4.5 [facility] Work Phone: Comment on above: Test(s) 647253-YWR-Q ; 735497-JDH-I; 891469-GOD-U; 711483-Fmubazqnmemmv; 406789-Llqztheoijz, Total; 747090-WJG-K (Total);816036-Icule LDL-P; 119002-GJG Size; 960091-FE-ZL Scorewas developed and its performance characteristics determinedby Fididel. It has not been cleared or approved by the Foodand Drug Administration.PATIENT WAS FASTINGPERFORMED BY: [employer] [address] [id number] BY: GetNinjas70 [facility] [id number] Glucose [Mass/Vol] 145 mg/dL Abnormal 65-99 [facility] Internal Medicine Work Phone: Comment on above: Test(s) 368126-XAF-Q ; 609431-NCR-C; 967011-RDM-S; 408813-Qbhgqjtapcuig; 371158-Jucuvhaflrk, Total; 154457-VUG-F (Total);037926-Ntriz LDL-P; 660403-ZWP Size; 333026-QM-CH Scorewas developed and its performance characteristics determinedby Fididel. It has not been cleared or approved by the Foodand Drug Administration.PATIENT WAS FASTINGPERFORMED BY: [employer] [address] [id number] BY: netFactor Seotvq9274 [facility] [id number] Potassium [Moles/Vol] 4.6 mmol/L Normal 3.5-5.2 [facility] Internal Medicine Work Phone: Comment on above: Test(s) 003418-GGA-F ; 813761-DWS-S; 735787-IEE-D; 071430-Dtgjeguoxhvxr; 903199-Uqnzdezzbdz, Total; 608183-KCB-W (Total);710281-Zrums LDL-P; 094416-HQC Size; 807084-KC-AH Scorewas developed and its performance characteristics determinedby Fididel. It has not been cleared or approved by the Foodand Drug Administration.PATIENT WAS FASTINGPERFORMED BY: BN [facility] [id number] BY: Conecta 2 [id number] [facility] [id number] Protein [Mass/Vol] 7.1 g/dL Normal 6.0-8.5 [facility] Work Phone: Comment on above: Test(s) 876046-EBB-L ; 151680-PSU-P; 294990-GJF-A; 033691-Gaosqntakywik; 763169-Wupswwcxvdp, Total; 906981-BSD-I (Total);997212-Vcaxy LDL-P; 210736-WZW Size; 373311-MU-NW Scorewas developed and its performance characteristics determinedby [employer]. It has not been cleared or approved by the Foodand Drug Administration.PATIENT WAS FASTINGPERFORMED BY: [facility] [employer] [address] [id number] BY: [employer] 2 [id number] [facility] [id number] Sodium [Moles/Vol] 139 mmol/L Normal 134-144 [facility] [facility] Work Phone: Comment on above: Test(s) 267090-ETC-W ; 562458-XCH-G; 758063-XGF-Y; 749254-Ucfllzkgdnqcj; 886322-Cvscusoiwtz, Total; 529998-KQE-J (Total);767316-Hhbrd LDL-P; 596745-BVP Size; 224425-HW-SF Scorewas developed and its performance characteristics determinedby Fididel. It has not been cleared or approved by the Foodand Drug Administration.PATIENT WAS FASTINGPERFORMED BY: Gainsight[address] [id number] BY: Conecta 2[facility] Medical CenterRssozb8277 [facility] [id number] Urea nitrogen [Mass/Vol] 14 mg/dL Normal 6-24 [facility] Internal Medicine Work Phone: Comment on above: Test(s) 470093-DCJ-Q ; 367681-VNL-N; 105176-ZTD-G; 332276-Wveeajvakqtlo; 998331-Xsbzerqjiuc, Total; 546974-ZHP-D (Total);845476-Kbqbe LDL-P; 952834-UQG Size; 856653-SR-ON Scorewas developed and its performance characteristics determinedby Fididel. It has not been cleared or approved by the Foodand Drug Administration.PATIENT WAS FASTINGPERFORMED BY: Mophie[address] [id number] BY: GetNinjas70 [facility] [id number] Urea nitrogen/Creatinine [Mass ratio] 15 mg/mg Normal - [facility] Work Phone: Comment on above: Test(s) 696935-SSH-D ; 860011-ITQ-T; 361449-KXI-Q; 927221-Wymebefeuuwhe; 441424-Gxfdzmyhofi, Total; 357714-ZTS-N (Total);264500-Lmwoa LDL-P; 508303-XGA Size; 730867-FN-AI Scorewas developed and its performance characteristics determinedby Fididel. It has not been cleared or approved by the Foodand Drug Administration.PATIENT WAS FASTINGPERFORMED BY: Mophie[address] [id number] BY: netFactor Jtwvjx7089 [facility] [id number] MICROALBUMINOrdered By: Syst em Chief Innovation Officer on 06-24-2019 Albumin DL <= 20 mg/L (U) [Mass/Vol] 3.8 ug/mL Normal [facility] Work Phone: Comment on above: Test(s) 405458-VFM-L ; 404741-QKY-K; 006423-QOC-R; 036864-Zatsgmcxfcmem; 391705-Sciwshadbkf, Total; 890456-XBE-Y (Total);881843-Zpktk LDL-P; 786179-HGK Size; 682453-IO-CO Scorewas developed and its performance characteristics determinedby Fididel. It has not been cleared or approved by the Foodand Drug Administration.PATIENT WAS FASTINGPERFORMED BY: BN Lab[employer] [id number] BY: FOURward Thought Dxhnkk3724 [facility] [id number] Albumin/Creatinine (U) [Mass ratio] 3 {mg/g_creat} Normal 0-29 [facility] Work Phone: Comment on above: Normal: 0 - 29 Moder ately increased: 30 - 300 Severely increased: >300 Please note reference interval change Test(s) 343306-CHL-Y ; 614330-JME-I; 141361-MYI-N; 660171-Fgtrxncujhlah; 774026-Wsadjlwfikl, Total; 977269-GUH-B (Total);793445-Tfnml LDL-P; 676282-NHC Size; 466624-FX-UG Scorewas developed and its performance characteristics determinedby Fididel. It has not been cleared or approved by the Foodand Drug Administration.PATIENT WAS FASTINGPERFORMED BY: [employer] [address] [id number] BY: GetNinjas70 [facility] [id number] Creatinine (U) [Mass/Vol] 127.5 mg/dL Normal [facility] Work Phone: Comment on above: Test(s) 163076-WCV-J ; 943111-JJL-W; 796123-NVL-N; 945965-Rifqwqraachga; 468197-Owikhdmiptk, Total; 002499-UQU-I (Total);383473-Qzrvz LDL-P; 082838-NJC Size; 616968-YZ-AN Scorewas developed and its performance characteristics determinedby Fididel. It has not been cleared or approved by the Foodand Drug Administration.PATIENT WAS FASTINGPERFORMED BY: Mophie[address] [id number] BY: Catchafirelin6370 [facility] [id number] NMR Profile (57977)Ordered B y: Dry Cleaner Apprentice on 06-24-2019 Cholesterol [Mass/Vol] 237 mg/dL Abnormal 100-199 [facility] Work Phone: Comment on above: Test(s) 556473-NUX-O ; 742045-FCK-K; 145071-IIZ-T; 257671-Jhbijtunaylbn; 339841-Nxgtvlqszks, Total; 119031-SYG-M (Total);749127-Oeqoz LDL-P; 037277-QYH Size; 881646-NH-HX Scorewas developed and its performance characteristics determinedby Fididel. It has not been cleared or approved by the Foodand Drug Administration.PATIENT WAS FASTINGPERFORMED BY: [employer] [address] [id number] BY: GetNinjas70 vocaltapAtrium Health W[facility]haw [id number] Cholesterol in LDL [Mass/Vol] TRIGHI Normal 0-99 [facility] Work Phone: Comment on above: Triglyceride result indicated is too high for an accurate LDLcholesterol estimation. . Optimal < 100 Above optimal 100 - 129 Borderline 130 - 159 High 160 - 189 Very high > 189 .LDL-C is inaccurate if patient is non-fasting. Test(s) 952922-RYO-Y ; 818015-XMM-B; 741115-IUP-G; 843421-Zmbokgpttbdfe; 773959-Eivvakjnuwt, Total; 518396-FNK-C (Total);849290-Oosoq LDL-P; 930947-BAL Size; 390505-QQ-TY Scorewas developed and its performance characteristics determinedby Fididel. It has not been cleared or approved by the [employer] Drug Administration.PATIENT WAS FASTINGPERFORMED BY: [employer] [address] [id number] BY: RetiDiag6370 [facility]At[facility] [id number] Lipoprotein.alpha [Moles/Vol] 34.2 umol/L Normal [facility] Work Phone: Comment on above: Test(s) 696803-XQZ-Y ; 782880-MED-O; 068497-MVZ-E; 432079-Micvehpbiuifa; 804003-Rumfmzuxhfi, Total; 053680-ALI-U (Total);140913-Zqcne LDL-P; 070065-LHS Size; 530714-JG-VO Scorewas developed and its performance characteristics determinedby Fididel. It has not been cleared or approved by the Foodand Drug Administration.PATIENT WAS FASTINGPERFORMED BY: [facility] Cecsduoxkx6992 [facility] [id number] BY: [facility] Qfuink6102 [facility] [id number] Lipoprotein.beta.subp article [Entitic length] 19.8 nm Abnormal [facility] [...] not afterLDL-P is taken into account. Test(s) 010123-EOR-V ; 343962-IAM-X; 913645-FTR-C; 201103-Lptaeffomphpe; 166925-Oozacrlvqvy, Total; 558790-YOA-W (Total);105635-Xgvib LDL-P; 842734-YAM Size; 610365-CP-ZW Scorewas developed and its performance characteristics determinedby Fididel. It has not been cleared or approved by the Foodand Drug Administration.PATIENT WAS FASTINGPERFORMED BY: Mophie[address] [id number] BY: FOURward Thought Sqpsbn4944 DLSAtrium Health Mercy [id number] Lipoprotein.beta.subp article [Moles/Vol] 1478 nmol/L Abnormal Comprehensiv e Internal Medicine Work Phone: Comment on above: Low < 1000 Moderate 1000 - 1299 Borderline-High 1300 - 1599 High 1600 - 2000 Very High > 2000 Test(s) 310304-VPT-T ; 884587-YGO-G; 104846-OMP-N; 743619-Kayodzyflradw; 426646-Mwcaugdinln, Total; 362139-GMA-E (Total);206755-Tydqz LDL-P; 121830-OUO Size; 592734-QL-XJ Scorewas developed and its performance characteristics determinedby Fididel. It has not been cleared or approved by the Foodand Drug Administration.PATIENT WAS FASTINGPERFORMED BY: Mophie[address] [id number] BY: GetNinjas70 vocaltapAtrium Health W[facility] [id number] Lipoprotein.beta.subp article.small [Moles/Vol] 905 nmol/L Abnormal [facility] Work Phone: Comment on above: Test(s) 164159-XQP-T ; 068390-IDI-P; 025313-TNN-Z; 674559-Xopzkwjyahojm; 178285-Jnacrdflntc, Total; 741216-EHO-L (Total);458515-Iimtl LDL-P; 092859-KCW Size; 456944-UG-NA Scorewas developed and its performance characteristics determinedby Fididel. It has not been cleared or approved by the Foodand Drug Administration.PATIENT WAS FASTINGPERFORMED BY: [employer] [address] [id number] BY: RetiDiag6370 [facility] TherapeuticsAt[facility] [id number] Triglyceride [Mass/Vol] 464 mg/dL Abnormal 0-149 [facility] Work Phone: Comment on above: Test(s) 762100-EGJ-T ; 666477-ZBV-P; 380146-QSK-W; 202185-Umloswlhsrqdw; 263125-Rlfvuoexwwt, Total; 320228-BTS-T (Total);346033-Bgnlo LDL-P; 555596-NLO Size; 831344-YD-ON Scorewas developed and its performance characteristics determinedby Fididel. It has not been cleared or approved by the Foodand Drug Administration.PATIENT WAS FASTINGPERFORMED BY: [employer] [address] [id number] BY: GetNinjas70 [facility] [id number] NMR Profile (46511) 38 mg/dL Abnormal [facility] Internal Medicine Work Phone: Comment on above: Test(s) 522351-ROM-B ; 237459-GDG-U; 135936-ASV-K; 856480-Exkftufssygai; 609898-Qbejhndtwkf, Total; 977442-EBC-H (Total);544912-Ihnov LDL-P; 433674-XKR Size; 851094-RZ-DA Scorewas developed and its performance characteristics determinedby Fididel. It has not been cleared or approved by the Foodand Drug Administration.PATIENT WAS FASTINGPERFORMED BY: [employer] [address] [id number] BY: netFactor Elddac9244 [facility] [id number] NMR Profile (78883) TRIGHI Normal 0-99 [facility] Internal Medicine; [facility] Work Phone: Comment on above: Triglyceride result indicated is too high for an accurate LDLcholesterol estimation. . Optimal < 100 Above optimal 100 - 129 Borderline 130 - 159 High 160 - 189 Very high > 189 .LDL-C is inaccurate if patient is non-fasting. Test(s) 619560-ZGO-Y ; 292784-DJU-E; 001726-VXJ-Y; 392258-Ybucjqsuuguun; 728948-Dijbigchund, Total; 524562-EAF-L (Total);844942-Tbqge LDL-P; 937935-IZD Size; 056430-XW-UE Scorewas developed and its performance characteristics determinedby Fididel. It has not been cleared or approved by the Foodand Drug Administration.PATIENT WAS FASTINGPERFORMED BY: [employer] [address] [id number] BY: Cone[place]a 2[facility] HospitalDgiwnn4248 [facility] [id number] NMR Profile (93068) 464 mg/dL Abnormal 0-149 Compr ehensive Internal Medicine; [facility] Work Phone: NMR Profile (52703) 237 mg/dL Abnormal 100-199 Compr ehensive Internal Medicine; [facility] Work Phone: TSH (44833)Ordered By: [employer] m Chief Innovation Officer on 06-24-2019 TSH Qn 3.210 {uIU/mL} Normal 0.450-4.50 0 [facility] Work Phone: Comment on above: Test(s) 047607-WJV-F ; 018838-CNI-F; 486646-WCZ-R; 061006-Bwedgzrdwodbz; 445705-Wnxogdxhjhw, Total; 784266-UCV-D (Total);660432-Aapyo LDL-P; 277950-RXN Size; 755160-PE-TW Scorewas developed and its performance characteristics determinedby Fididel. It has not been cleared or approved by the Foodand Drug Administration.PATIENT WAS FASTINGPERFORMED BY: [employer] Jwcsharnhc6373 [facility] [id number] BY: Fididel Gyzlmf3127 [facility] [id number] URINALYSIS, W/ MICRO (63313) Ordered By: Dry Cleaner Apprentice on 06-24-2019 Appearance (U) Clear Normal Comprehens tyron Internal Medicine Work Phone: Comment on above: Test(s) 910328-YLK-R ; 367378-SYM-B; 535058-POQ-M; 422940-Uelolabxepsuk; 157333-Azjhuemmgvn, Total; 801142-CLV-J (Total);904216-Kqyrw LDL-P; 560946-XOQ Size; 364966-VJ-MI Scorewas developed and its performance characteristics determinedby Fididel. It has not been cleared or approved by the Foodand Drug Administration.PATIENT WAS FASTINGPERFORMED BY: [employer] [address] [id number] BY: GetNinjas70 vocaltapAtrium Health W[facility] [id number] Bilirubin Ql (U) Negative Normal Comprehe nsive Internal Medicine Work Phone: Comment on above: Test(s) 304177-WRO-H ; 247140-TSH-M; 002841-USZ-W; 347244-Uuuzqfgvpvofv; 304175-Nsgqcovrrdv, Total; 402638-HLY-P (Total);341485-Nlqto LDL-P; 899176-BEV Size; 711231-MS-JH Scorewas developed and its performance characteristics determinedby Fididel. It has not been cleared or approved by the Foodand Drug Administration.PATIENT WAS FASTINGPERFORMED BY: [employer] [address] [id number] BY: GetNinjas70 vocaltapAtrium Health [facility] [id number] Bilirubin Ql (U) Negative Normal Comprehe nsive Internal Medicine; [facility] Work Phone: Comment on above: Test(s) 579833-VKU-M ; 991433-QGM-J; 491321-QXY-X; 944912-Hhsegrdcgwjwx; 236208-Ghhnisjngnk, Total; 181326-AYQ-C (Total);391970-Ctfwl LDL-P; 543075-ZPV Size; 679655-GB-ID Scorewas developed and its performance characteristics determinedby Fididel. It has not been cleared or approved by the Foodand Drug Administration.PATIENT WAS FASTINGPERFORMED BY: [employer] [address] [id number] BY: RetiDiag6370 [facility] Dem[facility] TherapeuticsAt[facility] [id number] Color (U) Yellow Normal [facility] Work Phone: Comment on above: Test(s) 672188-OJE-O ; 839284-CKY-A; 704651-MOD-F; 169920-Ahndgjhirrwtq; 654943-Mrgfzmmtvqx, Total; 835433-ROS-E (Total);031297-Fjvin LDL-P; 720598-FDN Size; 991929-MW-QR Scorewas developed and its performance characteristics determinedby Fididel. It has not been cleared or approved by the Foodand Drug Administration.PATIENT WAS FASTINGPERFORMED BY: [employer] [address] [id number] BY: GetNinjas70 [facility] [id number] Glucose Ql (U) Negative Normal [facility] Internal Medicine Work Phone: Comment on above: Test(s) 724609-BWU-I ; 591693-YBA-E; 859323-NRS-I; 797462-Phqqfdmqeblbq; 481950-Ojbqfrjinsq, Total; 140026-FSO-M (Total);123017-Fmfwd LDL-P; 800078-FKS Size; 073809-OI-MG Scorewas developed and its performance characteristics determinedby Fididel. It has not been cleared or approved by the Foodand Drug Administration.PATIENT WAS FASTINGPERFORMED BY: [employer] [address] [id number] BY: RetiDiag6370 [facility] [id number] Glucose Ql (U) Negative Normal Comprehens tyron Internal Medicine; [facility] Work Phone: Comment on above: Test(s) 831738-NSH-J ; 755386-WFZ-R; 058812-OCN-G; 358238-Wlfrmnltpckpq; 437128-Qnikassdhli, Total; 983898-DQQ-M (Total);719023-Krvdx LDL-P; 322347-DJD Size; 772723-XS-DQ Scorewas developed and its performance characteristics determinedby Fididel. It has not been cleared or approved by the Foodand Drug Administration.PATIENT WAS FASTINGPERFORMED BY: [employer] [address] [id number] BY: Fididel Fixprp0884 [facility] [id number] Hemoglobin Ql (U) Negative Normal Compreh ensive Internal Medicine Work Phone: Comment on above: Test(s) 737237-JYK-G ; 037734-IEL-L; 024490-SYW-I; 844586-Fpwknkqjnklkg; 829639-Ancfhefghfi, Total; 708117-XCM-X (Total);170812-Hblda LDL-P; 437822-SLV Size; 057397-FQ-DT Scorewas developed and its performance characteristics determinedby Fididel. It has not been cleared or approved by the Foodand Drug Administration.PATIENT WAS FASTINGPERFORMED BY: [employer] [address] [id number] BY: Catchafirelin6370 [facility] [id number] Hemoglobin Ql (U) Negative Normal Compreh ensive Internal Medicine; [facility] Work Phone: Comment on above: Test(s) 686380-RVD-O ; 904675-BYN-W; 895732-YME-B; 761087-Movnpncsqzsrg; 582724-Yjruzzdamrs, Total; 335131-YYC-Z (Total);301330-Ahsbi LDL-P; 340248-XGU Size; 964162-IU-SB Scorewas developed and its performance characteristics determinedby Fididel. It has not been cleared or approved by the Foodand Drug Administration.PATIENT WAS FASTINGPERFORMED BY: [employer] [address] [id number] BY: netFactor Huewpi9980 [facility] [id number] Ketones Ql (U) Negative Normal Comprehens tyron Internal Medicine Work Phone: Comment on above: Test(s) 691248-BBW-A ; 799115-DMR-O; 600212-DDA-G; 212517-Iqbirrgfwegwb; 544218-Mrgylldcbvv, Total; 070949-KLO-E (Total);308481-Wpyio LDL-P; 530809-JTG Size; 681711-ZP-CW Scorewas developed and its performance characteristics determinedby Fididel. It has not been cleared or approved by the Foodand Drug Administration.PATIENT WAS FASTINGPERFORMED BY: [employer] [address] [id number] BY: netFactor Smxpdw9411 DLSAtrium Health Mercy [id number] Ketones Ql (U) Negative Normal [facility] Internal Medicine; [facility] Work Phone: Comment on above: Test(s) 060080-LHV-S ; 820889-HKB-M; 721361-DLR-R; 195708-Jetaqciyltvzz; 095304-Ijzbdribdnf, Total; 327790-FCB-N (Total);531597-Zxjto LDL-P; 759539-STV Size; 905787-OC-HF Scorewas developed and its performance characteristics determinedby Fididel. It has not been cleared or approved by the Foodand Drug Administration.PATIENT WAS FASTINGPERFORMED BY: [employer] [address] [id number] BY: GetNinjas70 vocaltapAtrium Health W[facility]haw [id number] Leukocyte esterase Test strip Ql (U) Negative Normal [facility] Work Phone: Comment on above: Test(s) 060867-VYQ-T ; 312847-JHE-K; 070809-SZD-H; 764301-Jsctdldxhijuq; 486704-Jqiwmapjegx, Total; 428334-SXM-D (Total);105429-Dvtse LDL-P; 653578-DCQ Size; 197423-FF-NK Scorewas developed and its performance characteristics determinedby Fididel. It has not been cleared or approved by the Foodand Drug Administration.PATIENT WAS FASTINGPERFORMED BY: [employer] [address] [id number] BY: Catchafirelin6370 [facility] QuadAt[facility] [id number] Leukocyte esterase Test strip Ql (U) Negative Normal [facility]; [facility] Work Phone: Comment on above: Test(s) 107962-WSA-D ; 103166-TKU-F; 769767-LPP-S; 738371-Oymljfbiisfdk; 234300-Egvfjuhaorw, Total; 820052-UAO-L (Total);581019-Pvwxr LDL-P; 313881-BSN Size; 450622-KY-AM Scorewas developed and its performance characteristics determinedby Fididel. It has not been cleared or approved by the Foodand Drug Administration.PATIENT WAS FASTINGPERFORMED BY: [employer] [address] [id number] BY: Conecta [address] [id number] Microscopic observation LM Nom (Urine sed) MICRON Normal [facility] Work Phone: Comment on above: Microscopic follows if indicated. Test(s) 277919-TTU-M ; 991059-RYF-Z; 232455-ANP-K; 786668-Prpjipqsdyxbx; 595655-Osffrfbnrbn, Total; 109324-DTE-Y (Total);811379-Nkvis LDL-P; 123726-SLM Size; 379967-YQ-EN Scorewas developed and its performance characteristics determinedby Fididel. It has not been cleared or approved by the Foodand Drug Administration.PATIENT WAS FASTINGPERFORMED BY: [employer] [address] [id number] BY: Conecta 2[facility] CenterQezyrg3639 [facility] [id number] Microscopic observation LM Nom (Urine sed) See below: Normal [facility] Work Phone: Comment on above: Microscopic was giovanni cated and was performed. Test(s) 610421-RDN-W ; 385743-PZU-V; 063948-ALF-Q; 820936-Ijfqmkbucuijb; 567393-Phgaepssbcd, Total; 864129-QHR-U (Total);877200-Rqtec LDL-P; 731754-TCM Size; 304898-NQ-DW Scorewas developed and its performance characteristics determinedby Fididel. It has not been cleared or approved by the Foodand Drug Administration.PATIENT WAS FASTINGPERFORMED BY: [employer] Lgoygjdohg4528 [facility] [id number] BY: Conecta 2[facility] CenterNzexln8167 [facility] [id number] Nitrite Ql (U) Negative Normal Comprehens tyron Internal Medicine Work Phone: Comment on above: Test(s) 046861-ABH-F ; 640227-NYJ-K; 274578-MIU-L; 942692-Xofgzttotkxib; 775353-Buhdzhjmmae, Total; 721180-SUA-S (Total);420297-Lugvp LDL-P; 359834-EEL Size; 195345-XQ-EF Scorewas developed and its performance characteristics determinedby Fididel. It has not been cleared or approved by the Foodand Drug Administration.PATIENT WAS FASTINGPERFORMED BY: [employer] [address] [id number] BY: Catchafirelin6370 [facility] [id number] Nitrite Ql (U) Negative Normal Comprehens tyron Internal Medicine; [facility] Work Phone: Comment on above: Test(s) 985547-MYX-W ; 580842-BSI-G; 031734-XUT-J; 281032-Vxdozqycexmkf; 375534-Gdxlnucdtlq, Total; 738414-RWF-A (Total);404066-Wzbom LDL-P; 398378-BIM Size; 001161-FV-NB Scorewas developed and its performance characteristics determinedby Fididel. It has not been cleared or approved by the Foodand Drug Administration.PATIENT WAS FASTINGPERFORMED BY: [employer] [address] [id number] BY: Catchafirelin6370 [facility] [id number] pH (U) 5.5 [pH] Normal 5.0-7.5 [facility] Work Phone: Comment on above: Test(s) 974753-ACO-U ; 803648-YTO-N; 469586-QTI-B; 772382-Mxfzxgdlfrhly; 703873-Vjzebktatvm, Total; 619628-WSZ-D (Total);659447-Yalze LDL-P; 515425-EMB Size; 234113-QT-VN Scorewas developed and its performance characteristics determinedby Fididel. It has not been cleared or approved by the Foodand Drug Administration.PATIENT WAS FASTINGPERFORMED BY: [employer] [address] [id number] BY: GetNinjas70 [facility] [id number] Protein Ql (U) Negative Normal Comprehens [facility] Internal Medicine Work Phone: Comment on above: Test(s) 021407-GOU-C ; 774917-GOK-W; 432781-NTO-U; 923622-Gdgfyhbxrxgch; 119809-Jhxxxhxsdle, Total; 760578-VTM-D (Total);022647-Tvjff LDL-P; 557593-TJC Size; 141645-PB-PT Scorewas developed and its performance characteristics determinedby Fididel. It has not been cleared or approved by the Foodand Drug Administration.PATIENT WAS FASTINGPERFORMED BY: [employer] [address] [id number] BY: RetiDiag6370 [facility] [id number] Protein Ql (U) Negative Normal Comprehens [facility] Internal Medicine; [facility] Internal Medicine Work Phone: Comment on above: Test(s) 801451-NHG-W ; 460572-PLS-E; 190043-BRY-Y; 268714-Zjwzcxmrmboml; 309186-Rczxibmudnu, Total; 708598-LVE-A (Total);832683-Unbms LDL-P; 218320-EFW Size; 903488-JW-SH Scorewas developed and its performance characteristics determinedby Fididel. It has not been cleared or approved by the Foodand Drug Administration.PATIENT WAS FASTINGPERFORMED BY: [employer] [address] [id number] BY: GetNinjas70 [facility] [id number] Specific gravity (U) [Rel density] 1.021 1 Normal 1.005-1.03 0 [facility] Internal Medicine Work Phone: Comment on above: Test(s) 289344-HEW-W ; 931493-MJX-K; 506343-UHH-A; 960358-Rllgofrzoluyd; 634691-Zslsqqeaaer, Total; 937395-IUP-W (Total);174834-Rsrzn LDL-P; 400604-BHV Size; 108675-SD-OJ Scorewas developed and its performance characteristics determinedby Fididel. It has not been cleared or approved by the Foodand Drug Administration.PATIENT WAS FASTINGPERFORMED BY: Fididel [address] [id number] BY: ascentify6370 vocaltapAtrium Health Waxhaw [id number] Urobilinogen (U) [Mass/Vol] 0.2 mg/dL Normal 0.2-1.0 [facility] Internal [facility]; [facility] Internal Medicine Work Phone: Comment on above: Test(s) 555877-BPN-J ; 859483-ZKK-G; 475244-ZJA-S; 476508-Rrkbxiegfhwwq; 041890-Bnaahmtjljj, Total; 120781-ZGN-C (Total);654361-Djdtm LDL-P; 385860-HNQ Size; 007113-XE-DR Scorewas developed and its performance characteristics determinedby Fididel. It has not been cleared or approved by the Foodand Drug Administration.PATIENT WAS FASTINGPERFORMED BY: Fididel [address] [id number] BY: [employer] 2[facility] CenterNlwzwt8876 AlonzoThe Rehabilitation InstitutePando NetworksAtrium Health W[facility]haw [id number] Urobilinogen Test strip (U) [Mass/Vol] 0.2 mg/dL Normal 0.2-1.0 [facility] Internal Medicine Work Phone: Comment on above: Test(s) 391955-FHP-A ; 698016-TXD-E; 018422-HOT-N; 375973-Tnmiemktwvgny; 115144-Apmqaxdmwei, Total; 554290-SQD-Y (Total);945504-Yuagz LDL-P; 016929-MRC Size; 133739-RY-JS Scorewas developed and its performance characteristics determinedby [facility]Pie[facility]. It has not been cleared or approved by the Foodand Drug Administration.PATIENT WAS FASTINGPERFORMED BY: BN [facility] Xaybvacera1174 [facility] [id number] BY: CB [facility] Knkbbc3795 [facility] [id number] Blood Glucose , Office (8296 2)Ordered By: Angelica Meneses on 02-04-2019 Glucose Glucometer (BldC) [Moles/Vol] 164 1 Normal [facility] Work Phone: HgA1C , Office (67047)Ordere d By: Angelica Meneses on 02-04-2019 HbA1c (Bld) [Mass fraction] 6.2 % Normal 4.6 - 7.1 [facility] Work Phone: Blood Glucose , Office ([phone] 2)Ordered By: Kim Ordonez on 10-29-2018 Glucose Glucometer (BldC) [Moles/Vol] 132 1 Normal [facility] Work Phone: HgA1C , Office (49690)Ordere d By: Nita Coleman on 10-29-2018 HbA1c (Bld) [Mass fraction] 6.3 % Normal 4.6 - 7.1 [facility] Work Phone: CALCIFIDIOL (27324) VIT D 25 Ordered By: Dry Cleaner Apprentice on 10-23-2018 25-Hydroxyvitamin D2+25-Hydroxyvitamin D3 [Mass/Vol] 41.7 ng/mL Normal 30.0-100.0 [facility] Work Phone: Comment on above: Vitamin D deficiency has been defined by the [place] ofMedicine and an Endocrine Society practice guideline as alevel of serum 25-OH vitamin D less than 20 ng/mL (1,2).The Endocrine Society went on to further define vitamin Dinsufficiency as a level between 21 and 29 ng/mL (2).1. IOM ([place] of Medicine). 2010. Dietary reference intakes for calcium and D. [place]: The National Academies Press.2. Magno MF, Do MILES, Jos PRATER, et al. Evaluation, treatment, and prevention of vitamin D deficiency: an Endocrine Society clinical practice guideline. JCEM. 2010; 96(7):1911-30. PATIENT WAS FASTINGP ERFORMED BY: M360LOHAS outdoors[address] [id number] BY: Conecta 2 Xsxkux1095 [facility] [id number] CBC W/AUTO DIFF WBC (64784)O rdered By: Dry Cleaner Apprentice on 10-23-2018 Basophils (Bld) [#/Vol] 0.0 {x10E3/uL} Normal 0.0-0.2 [facility] Work Phone: Comment on above: PATIENT WAS FASTINGP ERFORMED BY: M360LOHAS outdoors[address] [id number] BY: C[facility] 2[facility] CenterSzhgyy1806 [facility] [id number] Basophils (Bld) [#/Vol] 0.0 10*3/uL Normal 0.0-0.2 [facility]; [facility] Work Phone: Comment on above: PATIENT WAS FASTINGP ERFORMED BY: Conecta [address] [id number] BY: Conecta 2[facility] CenterPgibwm7[address] [facility] [place] [id number] Basophils/100 WBC (Bld) 0 % Normal [facility] Work Phone: Comment on above: PATIENT WAS FASTINGP ERFORMED BY: M360LOHAS outdoors[address] [id number] BY: Conecta 2[facility] CenterSbivcj0477 [facility] [id number] Eosinophils (Bld) [#/Vol] 0.1 {x10E3/uL} Normal 0.0-0.4 [facility] Work Phone: Comment on above: PATIENT WAS FASTINGP ERFORMED BY: [address] [id number] BY: [facility] Fjfwxa7258 [address] [facility]in [place] [id number] Eosinophils (Bld) [#/Vol] 0.1 10*3/uL Normal 0.0-0.4 [facility]; [facility] Work Phone: Comment on above: PATIENT WAS FASTINGP ERFORMED BY: Lab[address] [id number] BY: [facility] Qzwgvf4522 [address] [facility]in [place] [id number] Eosinophils/100 WBC (Bld) 2 % Normal [facility] Work Phone: Comment on above: PATIENT WAS FASTINGP ERFORMED BY: [address] [id number] BY: [facility] Lujxvp2926 [address] [facility] [id number] Erythrocyte distribution width (RBC) [Ratio] 14.2 % Normal 12.3-15.4 [facility] Work Phone: Comment on above: PATIENT WAS FASTINGP ERFORMED BY: [address] [id number] BY: [facility] Knxuzs7897 [facility] [id number] Hematocrit (Bld) [Volume fraction] 43.8 % Normal 37.5-51.0 [facility] Work Phone: Comment on above: PATIENT WAS FASTINGP ERFORMED BY: Lab[address] [id number] BY: [facility] Ohsrax8370 [address] [facility] [id number] Hemoglobin (Bld) [Mass/Vol] 14.7 g/dL Normal 13.0-17.7 [facility] Work Phone: Comment on above: PATIENT WAS FASTINGP ERFORMED BY: Lab[address] [id number] BY: [facility] Etfzdq3471 [address] RoadDuAtrium Health Waxhaw [id number] Immature granulocytes (Bld) [#/Vol] 0.0 {x10E3/uL} Normal 0.0-0.1 [facility] Work Phone: Comment on above: PATIENT WAS FASTINGP ERFORMED BY: [address] [id number] BY: [facility]iumlin6370 [address] [facility] [id number] Immature granulocytes (Bld) [#/Vol] 0.0 10*3/uL Normal 0.0-0.1 [facility]; [facility] Work Phone: Comment on above: PATIENT WAS FASTINGP ERFORMED BY: [address] [id number] BY: [facility] Mkizqu4815 [address] [facility] [id number] Immature granulocytes/100 WBC (Bld) 0 % Normal [facility] Work Phone: Comment on above: PATIENT WAS FASTINGP ERFORMED BY: [address] [id number] BY: [facility]6[address] [facility] [id number] Lymphocytes (Bld) [#/Vol] 2.0 {x10E3/uL} Normal 0.7-3.1 [facility] Work Phone: Comment on above: PATIENT WAS FASTINGP ERFORMED BY: [address] [id number] BY: [facility]6[address] [facility] [id number] Lymphocytes (Bld) [#/Vol] 2.0 10*3/uL Normal 0.7-3.1 [facility]; [facility] Work Phone: Comment on above: PATIENT WAS FASTINGP ERFORMED BY: [address] [id number] BY: MENDEZ [facility] Byqktp3294 [address] RoadDublin [place] [id number] Lymphocytes/100 WBC (Bld) 33 % Normal [facility] Work Phone: Comment on above: PATIENT WAS FASTINGP ERFORMED BY: [address] [id number] BY: MENDEZ Lab[facility] Swynxn2166 [address] RoadDublin [place] [id number] MCH (RBC) [Entitic mass] 28.1 pg Normal 26.6-33.0 [facility] Work Phone: Comment on above: PATIENT WAS FASTINGP ERFORMED BY: [address] [id number] BY: MENDEZ [facility]6370 [address] RoadDuAtrium Health Waxhaw [id number] MCHC (RBC) [Mass/Vol] 33.6 g/dL Normal 31.5-35.7 [facility] Internal Medicine Work Phone: Comment on above: PATIENT WAS FASTINGP ERFORMED BY: [address] [id number] BY: [place] [address]324[address] [facility] [id number] MCV (RBC) [Entitic vol] 84 fL Normal 79-97 [facility] Work Phone: Comment on above: PATIENT WAS FASTINGP ERFORMED BY: [address] [id number] BY: [facility]6370 [address] RoadAtrium Health Mercy [id number] Monocytes (Bld) [#/Vol] 0.4 {x10E3/uL} Normal 0.1-0.9 [facility] Work Phone: Comment on above: PATIENT WAS FASTINGP ERFORMED BY: [address] [id number] BY: [facility]6[address] [facility] [id number] Monocytes (Bld) [#/Vol] 0.4 10*3/uL Normal 0.1-0.9 [facility]; [facility] Work Phone: Comment on above: PATIENT WAS FASTINGP ERFORMED BY: Lab[address] [id number] BY: MENDEZ [facility] Jrssxi7522 [address]zo RoadDublin [place] [id number] Monocytes/100 WBC (Bld) 7 % Normal [facility] Work Phone: Comment on above: PATIENT WAS FASTINGP ERFORMED BY: [address] [id number] BY: [facility] Qetemb6534 [address]zo RoadDublin [place] [id number] Neutrophils (Bld) [#/Vol] 3.6 {x10E3/uL} Normal 1.4-7.0 [facility] Work Phone: Comment on above: PATIENT WAS FASTINGP ERFORMED BY: M360LOHAS outdoors[address] [id number] BY: [facility] Ghugra8012 [address] RoadDublin [place] [id number] Neutrophils (Bld) [#/Vol] 3.6 10*3/uL Normal 1.4-7.0 [facility]; [facility] Work Phone: Comment on above: PATIENT WAS FASTINGP ERFORMED BY: [address] [id number] BY: [facility] Mniefo0594 [address] RoadDublin [place] [id number] Neutrophils/100 WBC (Bld) 58 % Normal [facility] Work Phone: Comment on above: PATIENT WAS FASTINGP ERFORMED BY: [address] [id number] BY: [facility] Jycxho6488 [address] RoadDublin [place] [id number] Platelets (Bld) [#/Vol] 246 {x10E3/uL} Normal 150-450 [facility] Work Phone: Comment on above: PATIENT WAS FASTINGP ERFORMED BY: [facility] [address] [id number] BY: MENDEZ [facility] Brmrmq0010 [address] RoadDublin [place] [id number] Platelets (Bld) [#/Vol] 246 10*3/uL Normal 150-450 [facility]; [facility] Work Phone: Comment on above: PATIENT WAS FASTINGP ERFORMED BY: [facility] [address] [id number] BY: CB [facility] Vfgjvx7398 [address] RoadDublin [place] [id number] RBC (Bld) [#/Vol] 5.23 {x10E6/uL} Normal 4.14-5.80 [facility] Internal Medicine Work Phone: Comment on above: PATIENT WAS FASTINGP ERFORMED BY: [facility] [address] [id number] BY: CB [facility] Kftxuu1474 [address] RoadDublin [place] [id number] RBC (Bld) [#/Vol] 5.23 10*6/uL Normal 4.14-5.80 [facility] Internal Medicine; [facility] Work Phone: Comment on above: PATIENT WAS FASTINGP ERFORMED BY: [facility] [address] [id number] BY: CB [facility] Ixjhdu0985 [address] RoadDublin [place] [id number] WBC (Bld) [#/Vol] 6.2 {x10E3/uL} Normal 3.4-10.8 [facility] Internal Medicine Work Phone: Comment on above: PATIENT WAS FASTINGP ERFORMED BY: [facility] [address] [id number] BY: CB [facility] Msuwzj6573 [address] RoadDublin [place] [id number] WBC (Bld) [#/Vol] 6.2 10*3/uL Normal 3.4-10.8 [facility]; [facility] Work Phone: Comment on above: PATIENT WAS FASTINGP ERFORMED BY: LabCo[address] [id number] BY: [facility] Btwqnn4691 [address] RoadDublin [place] [id number] METABOLIC PANEL, COMPREHENSI VE (72237)Ordered By: Dry Cleaner Apprentice on 10-23-2018 Albumin [Mass/Vol] 4.2 g/dL Normal 3.5-5.5 [facility] Work Phone: Comment on above: PATIENT WAS FASTINGP ERFORMED BY: LabInoapps[address] [id number] BY: [facility] Ofvpmi1082 [address] RoadDuin [place] [id number] Albumin/Globulin [Mass ratio] 1.4 {ratio} Normal 1.2-2.2 [facility] Work Phone: Comment on above: PATIENT WAS FASTINGP ERFORMED BY: LabInoapps[address] [id number] BY: [facility] Xnabea4043 [address] RoadDublin [place] [id number] ALP [Catalytic activity/Vol] 45 [iU]/L Normal 39-117 [facility] Work Phone: Comment on above: PATIENT WAS FASTINGP ERFORMED BY: LabInoapps[address] [id number] BY: [facility] Jhczgf3412 [address] RoadDublin [place] [id number] ALP [Catalytic activity/Vol] 45 U/L Normal 39-117 [facility]; [facility] Work Phone: Comment on above: PATIENT WAS FASTINGP ERFORMED BY: Lab[address] [id number] BY: [facility] Jfovxf4059 [address] RoadDublin [place] [id number] ALT [Catalytic activity/Vol] 27 [iU]/L Normal 0-44 [facility] Work Phone: Comment on above: PATIENT WAS FASTINGP ERFORMED BY: [address] [id number] BY: [facility] Qhwqyc1987 [address] RoadDublin [place] [id number] ALT [Catalytic activity/Vol] 27 U/L Normal 0-44 [facility]; [facility] Work Phone: Comment on above: PATIENT WAS FASTINGP ERFORMED BY: [address] [id number] BY: Lab[facility] Bzfzgu2723 [address] RoadDublin [place] [id number] AST [Catalytic activity/Vol] 20 [iU]/L Normal 0-40 [facility] Work Phone: Comment on above: PATIENT WAS FASTINGP ERFORMED BY: [address] [id number] BY: [facility] Oomeef8505 [address] RoadDublin [place] [id number] AST [Catalytic activity/Vol] 20 U/L Normal 0-40 [facility]; [facility] Work Phone: Comment on above: PATIENT WAS FASTINGP ERFORMED BY: [address] [id number] BY: [facility] Cjahsu2676 [address] RoadDublin [place] [id number] Bilirubin [Mass/Vol] 0.4 mg/dL Normal 0.0-1.2 [facility] centerensive Internal Medicine Work Phone: Comment on above: PATIENT WAS FASTINGP ERFORMED BY: [address] [id number] BY: [facility] Tbfcpc7458 [address] RoadDublin [place] [id number] Calcium [Mass/Vol] 9.3 mg/dL Normal 8.7-10.2 [facility] Work Phone: Comment on above: PATIENT WAS FASTINGP ERFORMED BY: BN [facility] Jrqfkkcqqr2519 [facility] [id number] BY: CB [facility] Rjjgtc6652 [address] RoadDublin [place] [id number] Chloride [Moles/Vol] 104 mmol/L Normal 96-106 [facility] Work Phone: Comment on above: PATIENT WAS FASTINGP ERFORMED BY: BN [facility] Vrrgdxxwqe178[address] [id number] BY: CB [facility] Ogrado0273 [address] RoadDublin [place] [id number] CO2 [Moles/Vol] 21 mmol/L Normal 20-29 [facility] Internal Medicine Work Phone: Comment on above: PATIENT WAS FASTINGP ERFORMED BY: BN [facility] Nflhscwusc14[address] [id number] BY: CB [facility] Xuqsue0953 [address] RoadDublin [place] [id number] Creatinine [Mass/Vol] 0.82 mg/dL Normal 0.76-1.27 [facility] Internal Medicine Work Phone: Comment on above: PATIENT WAS FASTINGP ERFORMED BY: BN [facility] Cnsddixpjm16[address] [id number] BY: CB [facility] Xhvyvt5431 [address] RoadDublin [place] [id number] GFR/1.73 sq M predicted among blacks CKD-EPI (S/P/Bld) [Vol rate/Area] 119 mL/min/1.73 Normal [facility] Work Phone: Comment on above: PATIENT WAS FASTINGP ERFORMED BY: BN [facility] Zdrabacxol888[address] [id number] BY: CB [facility] Ioxrsh8677 [address] RoadDublin [place] [id number] GFR/1.73 sq M predicted among non-blacks CKD-EPI (S/P/Bld) [Vol rate/Area] 103 mL/min/1.73 Normal [facility] Internal Medicine Work Phone: Comment on above: PATIENT WAS FASTINGP ERFORMED BY: Lab[address] [id number] BY: MENDEZ [facility] Nrlcru0700 [address] RoadDublin [place] [id number] Globulin (S) [Mass/Vol] 2.9 g/dL Normal 1.5-4.5 [facility] Internal Medicine Work Phone: Comment on above: PATIENT WAS FASTINGP ERFORMED BY: LabCo[address] [id number] BY: MENDEZ [facility] Lngnfk5988 [address] RoadDublin [place] [id number] Glucose [Mass/Vol] 119 mg/dL Abnormal 65-99 [facility] Internal [facility] Work Phone: Comment on above: PATIENT WAS FASTINGP ERFORMED BY: Lab[address] [id number] BY: MENDEZ [facility] Usskxi5402 [address] RoadDublin [place] [id number] Potassium [Moles/Vol] 4.2 mmol/L Normal 3.5-5.2 [facility] Internal Medicine Work Phone: Comment on above: PATIENT WAS FASTINGP ERFORMED BY: Lab[address] [id number] BY: [facility] Ggakua3760 [address] RoadDublin [place] [id number] Protein [Mass/Vol] 7.1 g/dL Normal 6.0-8.5 [facility] Work Phone: Comment on above: PATIENT WAS FASTINGP ERFORMED BY: LabCo[address] [id number] BY: MENDEZ [facility] Ydgbla6735 [address] RoadDublin [place] [id number] Sodium [Moles/Vol] 140 mmol/L Normal 134-144 [facility] Work Phone: Comment on above: PATIENT WAS FASTINGP ERFORMED BY: [facility] [address] [id number] BY: MENDEZ [facility] Ormapg0181 [address] RoadDublin [place] [id number] Urea nitrogen [Mass/Vol] 15 mg/dL Normal 6-24 [facility] Work Phone: Comment on above: PATIENT WAS FASTINGP ERFORMED BY: BN [facility] [address] [id number] BY: CB [facility] Pastoc7015 [address] RoadDublin [place] [id number] Urea nitrogen/Creatinine [Mass ratio] 18 mg/mg Normal 9-20 [facility] Work Phone: Comment on above: PATIENT WAS FASTINGP ERFORMED BY: Gainsight[address] [id number] BY: [facility] Fmekkl6712 [address] [facility]in [place] [id number] MICROALBUMINOrdered By: Syst em Chief Innovation Officer on 10-23-2018 Albumin DL <= 20 mg/L (U) [Mass/Vol] 7.0 ug/mL Normal [facility] Work Phone: Comment on above: PATIENT WAS FASTINGP ERFORMED BY: [employer] [address] [id number] BY: [facility] Sozmco224[address] [facility]in [place] [id number] Albumin/Creatinine (U) [Mass ratio] 2.8 {mg/g_creat} Normal 0.0-30.0 [facility] Work Phone: Comment on above: Normal: 0.0 - 30.0 A lbuminuria: 31.0 - 300.0 Clinical albuminuria: >300.0 PATIENT WAS FASTINGP ERFORMED BY: LabCo[address] [id number] BY: [facility] Zcosze9759 [address] RoadDublin [place] [id number] Creatinine (U) [Mass/Vol] 248.4 mg/dL Normal [facility] Work Phone: Comment on above: PATIENT WAS FASTINGP ERFORMED BY: Gainsight[address] [id number] BY: Conecta 2[facility] Medical CenterLzcpny9368 [facility] [id number] NMR Profile (35480)Ordered B y: Dry Cleaner Apprentice on 10-23-2018 Cholesterol [Mass/Vol] 196 mg/dL Normal 100-199 [facility] Work Phone: Comment on above: PATIENT WAS FASTINGP ERFORMED BY: Mophie[address] [id number] BY: Conecta 2 Bwzdzk5601 [facility] [id number] Cholesterol in LDL [Mass/Vol] TRIGHI Normal 0-99 [facility] Work Phone: Comment on above: Triglyceride result indicated is too high for an accurate LDLcholesterol estimation. . Optimal < 100 Above optimal 100 - 129 Borderline 130 - 159 High 160 - 189 Very high > 189 .LDL-C is inaccurate if patient is non-fasting. PATIENT WAS FASTINGP ERFORMED BY: [employer] [address] [id number] BY: Conecta 2 Zwyaft8117 [facility] [id number] Lipoprotein.alpha [Moles/Vol] 31.9 umol/L Normal [facility] Work Phone: Comment on above: PATIENT WAS FASTINGP ERFORMED BY: [employer] [address] [id number] BY: Conecta 2[facility] CenterTgzscs2161 [facility] [id number] Lipoprotein.beta.subp article [Entitic length] 19.7 nm Abnormal [facility] [...] were developed and their performance characteristicsdetermined by [employer]. These assays have not been cleared by [place] Food and Drug Administration. The clinical utility of theselaboratory values have not been fully established. PATIENT WAS FASTINGP ERFORMED BY: Mophie[address] [id number] BY: Checkr70 [facility] [id number] Lipoprotein.beta.subp article [Moles/Vol] 1132 nmol/L Abnormal Comprehensiv e Internal Medicine Work Phone: Comment on above: Low < 1000 Moderate 1000 - 1299 Borderline-High 1300 - 1599 High 1600 - 2000 Very High > 2000 PATIENT WAS FASTINGP ERFORMED BY: Mophie[address] [id number] BY: ascentify6370 [facility] [id number] Lipoprotein.beta.subp article.small [Moles/Vol] 720 nmol/L Abnormal [facility] Work Phone: Comment on above: PATIENT WAS FASTINGP ERFORMED BY: Mophie[address] [id number] BY: [facility]6370 [facility] [id number] Triglyceride [Mass/Vol] 419 mg/dL Abnormal 0-149 [facility] Work Phone: Comment on above: PATIENT WAS FASTINGP ERFORMED BY: M360LOHAS outdoors[address] [id number] BY: [facility]6370 [facility] [id number] NMR Profile (89159) 35 mg/dL Abnormal Compr [facility] Internal Medicine Work Phone: Comment on above: PATIENT WAS FASTINGP ERFORMED BY: M360LOHAS outdoors[address] [id number] BY: [place] 3332470 [facility] [id number] NMR Profile (08943) TRIGHI Normal 0-99 [facility]ensive [facility]; [facility] Work Phone: Comment on above: Triglyceride result indicated is too high for an accurate LDLcholesterol estimation. . Optimal < 100 Above optimal 100 - 129 Borderline 130 - 159 High 160 - 189 Very high > 189 .LDL-C is inaccurate if patient is non-fasting. PATIENT WAS FASTINGP ERFORMED BY: M360LOHAS outdoors[address] [id number] BY: [facility]6370 [facility] [id number] NMR Profile (47451) 419 mg/dL Abnormal 0-149 [facility] Hospitalensive [facility]; [facility] Work Phone: NMR Profile (56699) 196 mg/dL Normal 100-199 Compr ensive Internal Medicine; [facility] Work Phone: PSA (PROSTATE SPECIFIC ANTIG EN) (V76.44)Ordered By: Dry Cleaner Apprentice on 10-23-2018 Prostate specific Ag [Mass/Vol] 0.4 ng/mL Normal 0.0-4.0 [facility] Work Phone: Comment on above: Bradly ECLIA methodol ogy. .According to the [place] [employer], Serum PSA shoulddecrease and remain [...] l ast one; PATIENT WAS FASTINGPERFORMED BY: Mophie[address] [id number] BY: GetNinjas70 [address] RoadDublin [place] [id number] TSH (79180)Ordered By: Plycee ZIPDIGS Chief Innovation Officer on 10-23-2018 TSH Qn 5.760 {uIU/mL} Abnormal 0.450-4.50 0 [facility] Work Phone: Comment on above: PATIENT WAS FASTINGP ERFORMED BY: Mophie[address] [id number] BY: GetNinjas70 [address] RoadOnslow Memorial Hospitalin [place] [id number] URINALYSIS, W/ MICRO (64259) Ordered By: Dry Cleaner Apprentice on 10-23-2018 Appearance (U) Cloudy Abnormal Comprehens tyron Internal Medicine Work Phone: Comment on above: PATIENT WAS FASTINGP ERFORMED BY: Mophie[address] [id number] BY: FOUR[employer] Vydsgh8299 [address] RoadDublin [place] [id number] Bilirubin Ql (U) Negative Normal Comprehe nsive Internal Medicine Work Phone: Comment on above: PATIENT WAS FASTINGP ERFORMED BY: Mophie[address] [id number] BY: FOURward [employer] Ytapir8708 [address] RoadDublin [place] [id number] Bilirubin Ql (U) Negative Normal Comprehe nsive Internal Medicine; [facility] Work Phone: Comment on above: PATIENT WAS FASTINGP ERFORMED BY: BN [facility] [address] [id number] BY: MENDEZ [facility] Bmkuqn5945 [address] RoadDublin [place] [id number] Color (U) Yellow Normal [facility] Work Phone: Comment on above: PATIENT WAS FASTINGP ERFORMED BY: [facility] [address] [id number] BY: MENDEZ [facility] Iclrxz4118 [address] RoadDublin [place] [id number] Glucose Ql (U) Negative Normal Comprehens tyron [facility] Work Phone: Comment on above: PATIENT WAS FASTINGP ERFORMED BY: LabCo[address] [id number] BY: MENDEZ [facility] Jiqgvq0432 Alonzo RoadDublin [place] [id number] Glucose Ql (U) Negative Normal Comprehens [facility]; [facility] Work Phone: Comment on above: PATIENT WAS FASTINGP ERFORMED BY: LabCo[address] [id number] BY: MENDEZ [facility] Fdkswd9007 Alonzo RoadDublin [place] [id number] Hemoglobin Ql (U) Negative Normal Compreh ensive Internal Medicine Work Phone: Comment on above: PATIENT WAS FASTINGP ERFORMED BY: LabCo[address] [id number] BY: MENDEZ [facility] Rfjljy6665 Alonzo RoadDublin [place] [id number] Hemoglobin Ql (U) Negative Normal Compreh ensive Internal Medicine; [facility] Work Phone: Comment on above: PATIENT WAS FASTINGP ERFORMED BY: [facility] [address] [id number] BY: MENDEZ [facility] Lmwsyk3822 Al[address]zo RoadDublin [place] [id number] Ketones Ql (U) Negative Normal Comprehens [facility] Work Phone: Comment on above: PATIENT WAS FASTINGP ERFORMED BY: [facility] [address] [id number] BY: CB [facility] Uwzmnl9748 Al[address]zo RoadDublin [place] [id number] Ketones Ql (U) Negative Normal Comprehens [facility]; [facility] Work Phone: Comment on above: PATIENT WAS FASTINGP ERFORMED BY: [facility] [address] [id number] BY: CB [facility] Elcfas1569 Al[address]zo RoadDublin [place] [id number] Leukocyte esterase Test strip Ql (U) Negative Normal [facility] Work Phone: Comment on above: PATIENT WAS FASTINGP ERFORMED BY: Lab[address] [id number] BY: CB [facility] Xfejht0716 Al[address] RoadDublin [place] [id number] Leukocyte esterase Test strip Ql (U) Negative Normal [facility]; [facility] Work Phone: Comment on above: PATIENT WAS FASTINGP ERFORMED BY: Lab[address] [id number] BY: [facility] Ivzevs8784 Al[address]zo RoadDublin [place] [id number] Microscopic observation LM Nom (Urine sed) MICRON Normal [facility] Work Phone: Comment on above: Microscopic follows if indicated. PATIENT WAS FASTINGP ERFORMED BY: Lab[address] [id number] BY: CB [facility] Sdbqgx8276 [address] RoadDublin [place] [id number] Microscopic observation LM Nom (Urine sed) See below: Normal [facility] Work Phone: Comment on above: Microscopic was giovanni cated and was performed. PATIENT WAS FASTINGP ERFORMED BY: Lab[address] [id number] BY: CB [facility] Bhrcxx8290 [address] RoadDublin [place] [id number] Nitrite Ql (U) Negative Normal Comprehens [facility] Work Phone: Comment on above: PATIENT WAS FASTINGP ERFORMED BY: [address] [id number] BY: MENDEZ LabGabbie Caceres6370 [address] RoadDublin [place] [id number] Nitrite Ql (U) Negative Normal Comprehens [facility]; [facility] Work Phone: Comment on above: PATIENT WAS FASTINGP ERFORMED BY: [address] [id number] BY: MENDEZ LabGabbie DudleyUczxde0358 Alonzo RoadOnslow Memorial Hospitalin [place] [id number] pH (U) 5.0 [pH] Normal 5.0-7.5 [facility] Work Phone: Comment on above: PATIENT WAS FASTINGP ERFORMED BY: [address] [id number] BY: MENDEZ [facility] Pzbsvv8067 Alonzo RoadOnslow Memorial Hospitalin [place] [id number] Protein Ql (U) Trace Normal Comprehens [facility] Work Phone: Comment on above: PATIENT WAS FASTINGP ERFORMED BY: [address] [id number] BY: MENDEZ LabBrittany Nbprhp5403 Alonzo RoadOnslow Memorial Hospitalin [place] [id number] Specific gravity (U) [Rel density] 1.028 1 Normal 1.005-1.03 0 [facility] Work Phone: Comment on above: PATIENT WAS FASTINGP ERFORMED BY: [address] [id number] BY: MENDEZ Lab[facility] Siudbb4882 Al[address] RoadDublin [place] [id number] Urobilinogen (U) [Mass/Vol] 0.2 mg/dL Normal 0.2-1.0 [facility]; [facility] Work Phone: Comment on above: PATIENT WAS FASTINGP ERFORMED BY: [place] [address] [facility] [id number] BY: LabCorewell Health [facility] Hospital6370 [facility] [id number] Urobilinogen Test strip (U) [Mass/Vol] 0.2 mg/dL Normal 0.2-1.0 Comprehensi ve Internal Medicine Work Phone: Comment on above: PATIENT WAS FASTINGP ERFORMED BY: LabInoappsJoshua Ville 643207 [facility] [id number] BY: LabCorewell Health Butterworth Hospital6370 [facility] [id number] Blood Glucose , Office ([phone])Ordered By: Nita Coleman on 07-23-2018 Glucose Glucometer molar conc (BldC) 138 1 Normal [facility] Work Phone: HgA1C , Office ([phone])Ordere d By: Nita Coleman on 07-23-2018 Hemoglobin A1c/Hemoglobin.total mass fraction (Bld) 6.2 % Normal 4.6 - 7.1 Comprehensiv e Internal Medicine Work Phone: Blood Glucose , Office ([phone])Ordered By: Geovanny Toussaint on 03-19-2018 Glucose Glucometer (BldC) [Moles/Vol] 143 1 Normal [facility] Work Phone: HgA1C , Office ([phone])Ordere d By: Geovanny Toussaint on 03-19-2018 Hemoglobin A1c/Hemoglobin.total mass fraction (Bld) 5.9 % Normal 4.6 - 7.1 Comprehensiv e Internal Medicine Work Phone: Blood Glucose , Office ([phone])Ordered By: Nita Coleman on 11-13-2017 Glucose Glucometer molar conc (BldC) 132 1 Normal [facility] Work Phone: HgA1C , Office ([phone])Ordere d By: Nita Coleman on 11-13-2017 Hemoglobin A1c/Hemoglobin.total mass fraction (Bld) 5.8 % Normal 4.6 - 7.1 Comprehensiv e Internal Medicine Work Phone: CALCIFIDIOL ([id number]) VIT D 25 on 10-30-2017 25-Hydroxyvitamin D2+25-Hydroxyvitamin D3 mass conc 55.1 ng/mL Normal 30.0-100.0 [facility] Work Phone: Comment on above: Vitamin D deficiency has been defined by the [place] ofMedicine and an Endocrine Society practice guideline as alevel of serum 25-OH vitamin D less than 20 ng/mL (1,2).The Endocrine Society went on to further define vitamin Dinsufficiency as a level between 21 and 29 ng/mL (2).1. IOM ([place] of Medicine). 2010. Dietary reference intakes for calcium and D. [place]: The National Academies Press.2. Magno MF, Do MILES, Jos PRATER, et al. Evaluation, treatment, and prevention of vitamin D deficiency: an Endocrine Society clinical practice guideline. JCEM. 2010; 96(7):1911-30. PATIENT WAS FASTINGP ERFORMED BY: [facility]dSystemsLog[facility] Hospital [id number] CBC W/AUTO DIFF WBC (42814)o n 10-30-2017 Basophils #/vol (Bld) 0.0 {x10E3/uL} Normal 0.0-0.2 [facility] Work Phone: Comment on above: PATIENT WAS FASTINGP ERFORMED BY: Apta BiosciencesAtrium Health Waxhaw [id number] Basophils Auto #/vol (Bld) 0.0 {x10E3/uL} Normal 0.0-0.2 [facility] Work Phone: Basophils/100 WBC (Bld) 0 % Normal [facility] Work Phone: Comment on above: PATIENT WAS FASTINGP ERFORMED BY: Apta BiosciencesAt[facility] Health [facility] [id number] Basophils/100 WBC Auto (Bld) 0 % Normal [facility] Work Phone: Eosinophils #/vol (Bld) 0.1 {x10E3/uL} Normal 0.0-0.4 [facility] Work Phone: Comment on above: PATIENT WAS FASTINGP ERFORMED BY: MENDEZ LabCorewell [facility] Hospital6370 [facility] [id number] Eosinophils Auto #/vol (Bld) 0.1 {x10E3/uL} Normal 0.0-0.4 [facility] Work Phone: Eosinophils/100 WBC (Bld) 2 % Normal [facility] Work Phone: Comment on above: PATIENT WAS FASTINGP ERFORMED BY: MENDEZ LabFrank Ville 2273070 [facility] [id number] Eosinophils/100 WBC Auto (Bld) 2 % Normal [facility] Work Phone: Erythrocyte distribution width Auto Ratio (RBC) 14.5 % Normal 12.3-15.4 [facility] Work Phone: Erythrocyte distribution width Ratio (RBC) 14.5 % Normal 12.3-15.4 [facility] Work Phone: Comment on above: PATIENT WAS FASTINGP ERFORMED BY: MENDEZ [place] 6[address]3070 [facility] [id number] Hematocrit Auto Volume Fraction (Bld) 44.3 % Normal 37.5-51.[address] [facility] Internal Medicine Work Phone: Hematocrit Volume Fraction (Bld) 44.3 % Normal 37.5-51.0 [facility] Work Phone: Comment on above: PATIENT WAS FASTINGP ERFORMED BY: MENDEZ LabFrank Ville 2273070 [facility] [id number] Hemoglobin mass conc (Bld) 15.1 g/dL Normal 13.0-17.7 [facility] Work Phone: Comment on above: PATIENT WAS FASTINGP ERFORMED BY: LabFrank V[place] 2273070 [facility] [id number] Immature granulocytes #/vol (Bld) 0.0 {x10E3/uL} Normal 0.0-0.1 [facility] Work Phone: Comment on above: PATIENT WAS FASTINGP ERFORMED BY: MENDEZ [facility]6370 [facility] [id number] Immature granulocytes/100 WBC (Bld) 0 % Normal [facility] Work Phone: Comment on above: PATIENT WAS FASTINGP ERFORMED BY: MENDEZ [place] 6593070 [facility] [id number] Lymphocytes #/vol (Bld) 1.8 {x10E3/uL} Normal 0.7-3.1 [facility] Work Phone: Comment on above: PATIENT WAS FASTINGP ERFORMED BY: MENDEZ [place] 6593070 [facility] [id number] Lymphocytes Auto #/vol (Bld) 1.8 {x10E3/uL} Normal 0.7-3.1 [facility] Work Phone: Lymphocytes/100 WBC (Bld) 31 % Normal [facility] Work Phone: Comment on above: PATIENT WAS FASTINGP ERFORMED BY: MENDEZ [facility] Pqpjqq3904 [facility] [id number] Lymphocytes/100 WBC Auto (Bld) 31 % Normal [facility] Work Phone: MCH Auto Entitic mass (RBC) 28.0 pg Normal 26.6-33.0 [facility] Work Phone: MCH Entitic mass (RBC) 28.0 pg Normal 26.6-33.0 [facility] Work Phone: Comment on above: PATIENT WAS FASTINGP ERFORMED BY: MENDEZ [place] 6593070 [facility] [id number] MCHC Auto mass conc (RBC) 34.1 g/dL Normal 31.5-35.7 [facility] Work Phone: MCHC mass conc (RBC) 34.1 g/dL Normal 31.5-35.7 [facility] Work Phone: Comment on above: PATIENT WAS FASTINGP ERFORMED BY: [place] 3332470 [facility] [id number] MCV Auto Entitic volume (RBC) 82 fL Normal 79-97 [facility] Work Phone: MCV Entitic volume (RBC) 82 fL Normal 79-97 [facility] Work Phone: Comment on above: PATIENT WAS FASTINGP ERFORMED BY: [place] 3332470 [facility] [id number] Monocytes #/vol (Bld) 0.3 {x10E3/uL} Normal 0.1-0.9 [facility] Work Phone: Comment on above: PATIENT WAS FASTINGP ERFORMED BY: [address] [id number] Monocytes Auto #/vol (Bld) 0.3 {x10E3/uL} Normal 0.1-0.9 [facility] Work Phone: Monocytes/100 WBC (Bld) 5 % Normal [facility] Work Phone: Comment on above: PATIENT WAS FASTINGP ERFORMED BY: [address] [id number] Monocytes/100 WBC Auto (Bld) 5 % Normal [facility] Work Phone: Neutrophils #/vol (Bld) 3.6 {x10E3/uL} Normal 1.4-7.0 [facility] Work Phone: Comment on above: PATIENT WAS FASTINGP ERFORMED BY: [place] 3332470 [facility] [id number] Neutrophils Auto #/vol (Bld) 3.6 {x10E3/uL} Normal 1.4-7.0 [facility] Work Phone: Neutrophils/100 WBC (Bld) 62 % Normal [facility] Work Phone: Comment on above: PATIENT WAS FASTINGP ERFORMED BY: [place] 3332470 [facility] [id number] Neutrophils/100 WBC Auto (Bld) 62 % Normal [facility] Work Phone: Platelets #/vol (Bld) 243 {x10E3/uL} Normal 150-379 [facility] Work Phone: Comment on above: PATIENT WAS FASTINGP ERFORMED BY: MENDEZ Caceres6370 [facility] [id number] Platelets Auto #/vol (Bld) 243 {x10E3/uL} Normal 150-379 [facility] Work Phone: RBC #/vol (Bld) 5.40 {x10E6/uL} Normal 4.14-5.80 [facility] Internal Medicine Work Phone: Comment on above: PATIENT WAS FASTINGP ERFORMED BY: MENDEZ Dudleylin6370 [facility] [id number] RBC Auto #/vol (Bld) 5.40 {x10E6/uL} Normal 4.14-5.80 [facility] Work Phone: WBC #/vol (Bld) 5.8 {x10E3/uL} Normal 3.4-10.8 [facility] Internal Medicine Work Phone: Comment on above: PATIENT WAS FASTINGP ERFORMED BY: MENDEZ Dudleylin6370 [facility] [id number] WBC Auto #/vol (Bld) 5.8 {x10E3/uL} Normal 3.4-10.8 [facility] Internal Medicine Work Phone: CBC W/AUTO DIFF WBC (96713)O rdered By: Dry Cleaner Apprentice on 10-30-2017 Basophils (Bld) [#/Vol] 0.0 10*3/uL Normal 0.0-0.2 [facility]; [facility] Work Phone: Comment on above: PATIENT WAS FASTINGP ERFORMED BY: MENDEZ LabGabbie DudleyQcszkb4157 [facility] [id number] Eosinophils (Bld) [#/Vol] 0.1 10*3/uL Normal 0.0-0.4 [facility]; [facility] Work Phone: Comment on above: PATIENT WAS FASTINGP ERFORMED BY: MENDEZ LabComelyssa DudleyStbkpj1179 [facility] [id number] Immature granulocytes (Bld) [#/Vol] 0.0 10*3/uL Normal 0.0-0.1 [facility] Internal Medicine; [facility] Work Phone: Comment on above: PATIENT WAS FASTINGP ERFORMED BY: LabCoRaritan Bay Medical CenterXcukwe3361 Al[address] Roadblin [place] [id number] Lymphocytes (Bld) [#/Vol] 1.8 10*3/uL Normal 0.7-3.1 [facility] Internal Medicine; [facility] Work Phone: Comment on above: PATIENT WAS FASTINGP ERFORMED BY: LabCorewell [facility] Hospital[address] [facility] Systembl[facility] [place] [id number] Monocytes (Bld) [#/Vol] 0.3 10*3/uL Normal 0.1-0.9 [facility] Internal Medicine; [facility] Work Phone: Comment on above: PATIENT WAS FASTINGP ERFORMED BY: LabCorewell Health Butterworth Hospital[address] [facility] [id number] Neutrophils (Bld) [#/Vol] 3.6 10*3/uL Normal 1.4-7.0 [facility] Internal Medicine; [facility] Work Phone: Comment on above: PATIENT WAS FASTINGP ERFORMED BY: LabCorewell Health Butterworth Hospital[address] [facility]in [place] [id number] Platelets (Bld) [#/Vol] 243 10*3/uL Normal 150-379 [facility]; [facility] Work Phone: Comment on above: PATIENT WAS FASTINGP ERFORMED BY: LabSaint [facility] Ruepjc[address] [facility]in [place] [id number] RBC (Bld) [#/Vol] 5.40 10*6/uL Normal 4.14-5.80 [facility] Internal Medicine; [facility] Internal Medicine Work Phone: Comment on above: PATIENT WAS FASTINGP ERFORMED BY: LabCo Gvnbym[address] [facility] Systembl[facility] [place] [id number] WBC (Bld) [#/Vol] 5.8 10*3/uL Normal 3.4-10.8 [facility] Internal Medicine; [facility] Work Phone: Comment on above: PATIENT WAS FASTINGP ERFORMED BY: MENDEZ Caceres[address] [facility] [id number] LIPID PANEL ([id number])on 2017 Cholesterol in HDL mass conc 39 mg/dL Abnormal [facility] Work Phone: Comment on above: PATIENT WAS FASTINGP ERFORMED BY: MENDEZ Caceres6370 [facility] [id number] Cholesterol in LDL mass conc 83 mg/dL Normal 0-99 [facility] Work Phone: Comment on above: PATIENT WAS FASTINGP ERFORMED BY: MENDEZ Caceres6370 [facility] [id number] Cholesterol in LDL/Cholesterol in HDL mass ratio 2.1 {ratio} Normal 0.0-3.6 [facility] Work Phone: Comment on above: LDL/HDL Ratio Men Wo men 1/2 Avg.Risk 1.0 1.5 Avg.Risk 3.6 3.2 2X Avg.Risk 6.2 5.0 3X Avg.Risk 8.0 6.1 PATIENT WAS FASTINGP ERFORMED BY: MENDEZ Caceres6370 [facility] [id number] Cholesterol in VLDL mass conc 48 mg/dL Abnormal 5-40 [facility] Work Phone: Comment on above: PATIENT WAS FASTINGP ERFORMED BY: MENDEZ Caceres6370 [facility] [id number] Cholesterol mass conc 170 mg/dL Normal 100-199 [facility] prehensive Internal Medicine Work Phone: Comment on above: PATIENT WAS FASTINGP ERFORMED BY: MENDEZ Caceres6370 [facility] [place] [id number] Triglyceride mass conc 241 mg/dL Abnormal 0-149 [facility] Work Phone: Comment on above: PATIENT WAS FASTINGP ERFORMED BY: MENDEZ Dudleylin6370 [facility] [id number] METABOLIC PANEL, COMPREHENSI VE ([id number])on 10-30-2017 Albumin mass conc 4.4 g/dL Normal 3.5-5.5 [facility] Work Phone: Comment on above: PATIENT WAS FASTINGP ERFORMED BY: CB [facility] Mxtzgl5668 Al[address] RoadDublin [place] [id number] Albumin/Globulin mass ratio 1.5 {ratio} Normal 1.2-2.2 [facility] Work Phone: Comment on above: PATIENT WAS FASTINGP ERFORMED BY: CB [facility] Mydjec6424 [address] RoadDublin [place] [id number] ALP enzyme act/vol 51 [iU]/L Normal 39-117 [facility] Internal Medicine Work Phone: Comment on above: PATIENT WAS FASTINGP ERFORMED BY: CB [facility] Gseapk2958 [address] RoadDublin [place] [id number] ALT enzyme act/vol 14 [iU]/L Normal 0-44 [facility] Work Phone: Comment on above: PATIENT WAS FASTINGP ERFORMED BY: CB [facility] Fkaldd6959 [address] RoadDublin [place] [id number] AST enzyme act/vol 14 [iU]/L Normal 0-40 [facility] Internal Medicine Work Phone: Comment on above: PATIENT WAS FASTINGP ERFORMED BY: CB [facility] Mvaztg2680 [address] RoadDublin [place] [id number] Bilirubin mass conc 0.6 mg/dL Normal 0.0-1.2 [facility] Internal Medicine Work Phone: Comment on above: PATIENT WAS FASTINGP ERFORMED BY: CB [facility] Syftyv5485 [address] RoadDublin [place] [id number] Calcium mass conc 9.7 mg/dL Normal 8.7-10.2 Compreh [facility] Internal Medicine Work Phone: Comment on above: PATIENT WAS FASTINGP ERFORMED BY: CB [facility] Goemwi9154 [address] RoadDublin [place] [id number] Chloride molar conc 101 mmol/L Normal 96-106 Compr ehensive Internal Medicine Work Phone: Comment on above: PATIENT WAS FASTINGP ERFORMED BY: MENDEZ LabComelyssa Jccwru[address] [facility]bl[facility] [place] [id number] CO2 molar conc 24 mmol/L Normal 20-29 Comprehens tyron Internal Medicine Work Phone: Comment on above: PATIENT WAS FASTINGP ERFORMED BY: MENDEZ [facility] Aqgril[address] [facility]in [place] [id number] Creatinine mass conc 1.01 mg/dL Normal 0.76-1.27 Comp [facility] centerensive Internal Medicine Work Phone: Comment on above: PATIENT WAS FASTINGP ERFORMED BY: MENDEZ LabGabbie DudleyVqnmnf[address] [facility] [id number] GFR/1.73 sq M predicted among blacks CKD-EPI vol rate/area (S/P/Bld) 100 mL/min/1.73 Normal Comprehensiv e Internal Medicine Work Phone: Comment on above: PATIENT WAS FASTINGP ERFORMED BY: MENDEZ LabBrittany Zvcbpk[address] [facility]in [place] [id number] GFR/1.73 sq M predicted among non-blacks CKD-EPI vol rate/area (S/P/Bld) 87 mL/min/1.73 Normal [facility] Work Phone: Comment on above: PATIENT WAS FASTINGP ERFORMED BY: MENDEZ LabGabbie DudleyGwsiob0843 [facility] [id number] Globulin Calculated mass conc (S) 2.9 g/dL Normal 1.5-4.5 [facility] Work Phone: Globulin mass conc (S) 2.9 g/dL Normal 1.5-4.5 [facility] Work Phone: Comment on above: PATIENT WAS FASTINGP ERFORMED BY: MENDEZ [facility] Ropqnw[address] [facility]bl[facility] [place] [id number] Glucose mass conc 113 mg/dL Abnormal 65-99 Compreh ensive Internal Medicine Work Phone: Comment on above: PATIENT WAS FASTINGP ERFORMED BY: MENDEZ [facility] Ixmnac3083 [address] RoadDublin [place] [id number] Potassium molar conc 4.6 mmol/L Normal 3.5-5.2 Comp rehensive Internal Medicine Work Phone: Comment on above: PATIENT WAS FASTINGP ERFORMED BY: MENDEZ LabBrittany Xnwrmm6311 [address] RoadDublin [place] [id number] Protein mass conc 7.3 g/dL Normal 6.0-8.5 Compreh ensive Internal Medicine Work Phone: Comment on above: PATIENT WAS FASTINGP ERFORMED BY: MENDEZ [facility] Gutrgs4813 [address] RoadDublin [place] [id number] Sodium molar conc 140 mmol/L Normal 134-144 Compreh ensive Internal Medicine Work Phone: Comment on above: PATIENT WAS FASTINGP ERFORMED BY: MENDEZ LabSaint [facility] Wmzqlc8387 [address] RoadDublin [place] [id number] Urea nitrogen mass conc 13 mg/dL Normal 6-24 [facility] Work Phone: Comment on above: PATIENT WAS FASTINGP ERFORMED BY: MENDEZ LabSaint [facility] Wxzxph3653 [address] RoadDublin [place] [id number] Urea nitrogen/Creatinine mass ratio 13 mg/mg Normal 9-20 [facility] Work Phone: Comment on above: PATIENT WAS FASTINGP ERFORMED BY: MENDEZ Lee Ktynpc[address] [facility]bl[facility] [place] [id number] METABOLIC PANEL, COMPREHENSI VE ([id number])Ordered By: Dry Cleaner Apprentice on 10-30-2017 ALP [Catalytic activity/Vol] 51 U/L Normal 39-117 [facility]; [facility] Work Phone: Comment on above: PATIENT WAS FASTINGP ERFORMED BY: MENDEZ [facility] Xzeseh2436 [address] RoadDublin [place] [id number] ALT [Catalytic activity/Vol] 14 U/L Normal 0-44 [facility]; [facility] Work Phone: Comment on above: PATIENT WAS FASTINGP ERFORMED BY: MENDEZ [facility] Wpoeke4034 [address] RoadDublin [place] [id number] AST [Catalytic activity/Vol] 14 U/L Normal 0-40 [facility]; [facility] Work Phone: Comment on above: PATIENT WAS FASTINGP ERFORMED BY: LabCo Zayssd[address] [facility] [id number] MICROALBUMINon 10-30-2017 Albumin DL <= 20 mg/L mass conc (U) 5.3 ug/mL Normal [facility] Work Phone: Comment on above: PATIENT WAS FASTINGP ERFORMED BY: LabCo Hcmhxt9124 [facility] [id number] Albumin/Creatinine mass ratio (U) 3.1 {mg/g_creat} Normal 0.0-30.0 [facility] Work Phone: Comment on above: PATIENT WAS FASTINGP ERFORMED BY: [facility]6370 [facility] [id number] Creatinine mass conc (U) 171.5 mg/dL Normal [facility] Work Phone: Comment on above: PATIENT WAS FASTINGP ERFORMED BY: LabSaint [facility] Udanae4346 [facility] [id number] Microscopic Examinationon Bacteria LM.HPF #/area (Urine sed) None seen Normal [facility] Work Phone: Comment on above: PATIENT WAS FASTINGP ERFORMED BY: LabSaint [facility] Afytur2692 [facility] [id number] Epithelial cells LM.HPF #/area (Urine sed) None seen Normal 0 - 10 [facility] Work Phone: Comment on above: PATIENT WAS FASTINGP ERFORMED BY: LabCo Fqzzwn[address] [facility] [id number] Mucus LM Ql (Urine sed) Present Normal [facility] Work Phone: Mucus Ql (Urine sed) Present Normal Comp rehensive Internal Medicine Work Phone: Comment on above: PATIENT WAS FASTINGP ERFORMED BY: [facility] Gsgepl5014 [facility] [id number] RBC LM.HPF #/area (Urine sed) 0-2 Normal 0 - 2 [facility] Work Phone: Comment on above: PATIENT WAS FASTINGP ERFORMED BY: MENDEZ [facility] Wappmd7426 [address] RoadDublin [place] [id number] WBC LM.HPF #/area (Urine sed) 0-5 Normal 0 - 5 [facility] Work Phone: Comment on above: PATIENT WAS FASTINGP ERFORMED BY: MENDEZ [facility] Ibuksl2429 [address]zo RoadDublin [place] [id number] TSH ([id number])on 10-30-2017 Thyrotropin Qn 3.580 {uIU/mL} Normal 0.450-4.50 0 [facility] Work Phone: Comment on above: PATIENT WAS FASTINGP ERFORMED BY: MENDEZ [facility] Actack0614 [address] Roadblin [place] [id number] URINALYSIS, W/ MICRO ([id number]) on 10-30-2017 Appearance Nom (U) Clear Normal Compre hensive Internal Medicine Work Phone: Comment on above: PATIENT WAS FASTINGP ERFORMED BY: MENDEZ [facility] Hxsaqj9155 [address]zo RoadDublin [place] [id number] Bilirubin Ql (U) Negative Normal Comprehe nsive Internal Medicine Work Phone: Comment on above: PATIENT WAS FASTINGP ERFORMED BY: MENDEZ [facility] Stuujw9245 [address] RoadDublin [place] [id number] Color Nom (U) Yellow Normal Comprehensi ve Internal Medicine Work Phone: Comment on above: PATIENT WAS FASTINGP ERFORMED BY: MENDEZ [facility] Gjrncx6569 [address] RoadDublin [place] [id number] Glucose Ql (U) Negative Normal Comprehens tyron [facility] Work Phone: Comment on above: PATIENT WAS FASTINGP ERFORMED BY: MENDEZ [facility] Ctmyey6468 [address] RoadDublin [place] [id number] Hemoglobin Ql (U) Negative Normal Compreh ensive Internal Medicine Work Phone: Comment on above: PATIENT WAS FASTINGP ERFORMED BY: MENDEZ Dudleylin6370 [address] RoadDublin [place] [id number] Hemoglobin Test strip Ql (U) Negative Normal [facility] Work Phone: Ketones Ql (U) Negative Normal Comprehens tyron [facility] Work Phone: Comment on above: PATIENT WAS FASTINGP ERFORMED BY: MENDEZ Caceres6370 [address] RoadDublin [place] [id number] Leukocyte esterase Test strip Ql (U) Negative Normal [facility] Work Phone: Comment on above: PATIENT WAS FASTINGP ERFORMED BY: MENDEZ Caceres6370 [address] RoadDublin [place] [id number] Microscopic observation LM Nom (Urine sed) See below: Normal [facility] Work Phone: Comment on above: Microscopic was giovanni cated and was performed. PATIENT WAS FASTINGP ERFORMED BY: MENDEZ Dudleylin6370 [address] RoadDublin [place] [id number] Microscopic observation LM Nom (Urine sed) MICRON Normal [facility] Work Phone: Comment on above: Microscopic follows if indicated. PATIENT WAS FASTINGP ERFORMED BY: MENDEZ Dudleylin6[address]Dublin [place] [id number] Nitrite Ql (U) Negative Normal Comprehens tyron [facility] Work Phone: Comment on above: PATIENT WAS FASTINGP ERFORMED BY: MENDEZ Dudleylin6[address]Dublin [place] [id number] Nitrite Test strip Ql (U) Negative Normal [facility] Work Phone: pH (U) 6.5 [pH] Normal 5.0-7.5 [facility] Work Phone: Comment on above: PATIENT WAS FASTINGP ERFORMED BY: MENDEZ Dudleylin6370 [address] RoadDublin [place] [id number] pH Test strip (U) 6.5 [pH] Normal 5.0-7.5 Compreh ensive Internal Medicine Work Phone: Protein Ql (U) Negative Normal Comprehens tyron [facility] Medicine Work Phone: Comment on above: PATIENT WAS FASTINGP ERFORMED BY: MENDEZ LabGabbie DudleyPicfwc5726 [address]Dublin [place] [id number] Protein Test strip Ql (U) Negative Normal [facility] Work Phone: Specific gravity Relative Density (U) 1.024 1 Normal 1.005-1.03 0 [facility] Work Phone: Comment on above: PATIENT WAS FASTINGP ERFORMED BY: MENDEZ [facility] Wyxsqc1769 [address] RoadDublin [place] [id number] Urobilinogen Test strip mass conc (U) 0.2 mg/dL Normal 0.2-1.0 Comprehensiv e Internal Medicine Work Phone: Comment on above: PATIENT WAS FASTINGP ERFORMED BY: MENDEZ Dudleylin6370 [address]Dublin [place] [id number] URINALYSIS, W/ MICRO ([id number]) Ordered By: Dry Cleaner Apprentice on 10-30-2017 Bilirubin Ql (U) Negative Normal Comprehe nsive Internal Medicine; [facility] Work Phone: Comment on above: PATIENT WAS FASTINGP ERFORMED BY: MENDEZ LabGabbie DudleyDrrfcp5413 [address] RoadDublin [place] [id number] Glucose Ql (U) Negative Normal Comprehens tyron [facility]; [facility] Work Phone: Comment on above: PATIENT WAS FASTINGP ERFORMED BY: MENDEZ LabGabbie DudleyQofspz9946 Al[address] RoadDublin [place] [id number] Hemoglobin Ql (U) Negative Normal Compreh ensive [facility] Medicine; [facility] Work Phone: Comment on above: PATIENT WAS FASTINGP ERFORMED BY: MENDEZ LabGabbie DudleyRxahpl3097 [address] RoadDublin [place] [id number] Ketones Ql (U) Negative Normal Comprehens tyron [facility]; [facility] Work Phone: Comment on above: PATIENT WAS FASTINGP ERFORMED BY: MENDEZ LabGabbie DudleyCherft7256 [address] RoadDublin [place] [id number] Leukocyte esterase Test strip Ql (U) Negative Normal [facility]; [facility] Work Phone: Comment on above: PATIENT WAS FASTINGP ERFORMED BY: LabInoapps Ghmjyg[address] On Demand TherapeuticsAtrium Health [facility] [id number] Nitrite Ql (U) Negative Normal Comprehens tyron [facility]; [facility] Work Phone: Comment on above: PATIENT WAS FASTINGP ERFORMED BY: [facility] Sklrqd8342 [address] On Demand TherapeuticsAt[facility] Health [facility] [id number] Protein Ql (U) Negative Normal Comprehens tyron [facility]; [facility] Work Phone: Comment on above: PATIENT WAS FASTINGP ERFORMED BY: LabInoappsrp Aarehb0567 [address] On Demand TherapeuticsAt[facility] Health [facility] [id number] Urobilinogen (U) [Mass/Vol] 0.2 mg/dL Normal 0.2-1.0 [facility]; [facility] Work Phone: Comment on above: PATIENT WAS FASTINGP ERFORMED BY: [facility] Lzoijb[address] On Demand TherapeuticsAt[facility] [id number] Blood Glucose , Office ([phone])Ordered By: Nita Coleman on 08-07-2017 Glucose Glucometer molar conc (BldC) 118 1 Normal [facility] Work Phone: HgA1C , Office ([phone])Ordere d By: Cheri Clancy on 08-07-2017 Hemoglobin A1c/Hemoglobin.total mass fraction (Bld) 5.9 % Normal 4.6 - 7.1 Comprehensiv e Internal Medicine Work Phone: Blood Glucose , Office ([phone])on 05-01-2017 Glucose Glucometer molar conc (BldC) 155 1 Normal [facility] Work Phone: HgA1C , Office ([id number])Ordere d By: Nita Coleman on 05-01-2017 Hemoglobin A1c/Hemoglobin.total mass fraction (Bld) 6.0 % Normal 4.6 - 7.1 Comprehensiv e Internal Medicine Work Phone: CALCIFEDIOL ([id number])on 2017 25-Hydroxyvitamin D2+25-Hydroxyvitamin D3 mass conc 46.3 ng/mL Normal 30.0-100.0 [facility] Work Phone: Comment on above: Vitamin D deficiency has been defined by the [place] ofMedicine and an Endocrine Society practice guideline as alevel of serum 25-OH vitamin D less than 20 ng/mL (1,2).The Endocrine Society went on to further define vitamin Dinsufficiency as a level between 21 and 29 ng/mL (2).1. IOM ([place] of Medicine). 2010. Dietary reference intakes for calcium and D. [place]: The National Academies Press.2. Magno MF, Do [place], Jos PRATER, et al. Evaluation, treatment, and prevention of vitamin D deficiency: an Endocrine Society clinical practice guideline. JCEM. 2010; 96(7):1911-30. PATIENT WAS FASTINGP ERFORMED BY: [facility] ImagingAtrium Health Mercy [id number] CBC W/AUTO DIFF WBC (86024)o n 04-17-2017 Basophils #/vol (Bld) 0.0 {x10E3/uL} Normal 0.0-0.2 [facility] Work Phone: Comment on above: PATIENT WAS FASTINGP ERFORMED BY: Isowalkox On Demand TherapeuticsAt[facility] Health [facility] [id number] Basophils Auto #/vol (Bld) 0.0 {x10E3/uL} Normal 0.0-0.2 [facility] Work Phone: Basophils/100 WBC (Bld) 0 % Normal [facility] Work Phone: Comment on above: PATIENT WAS FASTINGP ERFORMED BY: RetiDiag6370 [facility]zoNorth[facility] Center [id number] Basophils/100 WBC Auto (Bld) 0 % Normal [facility] Work Phone: Eosinophils #/vol (Bld) 0.1 {x10E3/uL} Normal 0.0-0.4 [facility] Work Phone: Comment on above: PATIENT WAS FASTINGP ERFORMED BY: [facility] Micro Imagingblin [place] [id number] Eosinophils Auto #/vol (Bld) 0.1 {x10E3/uL} Normal 0.0-0.4 [facility] Work Phone: Eosinophils/100 WBC (Bld) 2 % Normal [facility] Work Phone: Comment on above: PATIENT WAS FASTINGP ERFORMED BY: MENDEZ [place] 6593070 [facility] [id number] Eosinophils/100 WBC Auto (Bld) 2 % Normal [facility] Work Phone: Erythrocyte distribution width Auto Ratio (RBC) 14.3 % Normal 12.3-15.4 [facility] Work Phone: Erythrocyte distribution width Ratio (RBC) 14.3 % Normal 12.3-15.4 [facility] Work Phone: Comment on above: PATIENT WAS FASTINGP ERFORMED BY: [place] [id number] [facility] [id number] Hematocrit Auto Volume Fraction (Bld) 44.6 % Normal 37.5-51.[address] [facility] Internal Medicine Work Phone: Hematocrit Volume Fraction (Bld) 44.6 % Normal 37.5-51.0 [facility] Internal Medicine Work Phone: Comment on above: PATIENT WAS FASTINGP ERFORMED BY: MENDEZ [place] 6593070 [facility] [id number] Hemoglobin mass conc (Bld) 15.4 g/dL Normal 13.0-17.7 [facility] Work Phone: Comment on above: PATIENT WAS FASTINGP ERFORMED BY: [place] 3332470 [facility] [id number] Immature granulocytes #/vol (Bld) 0.0 {x10E3/uL} Normal 0.0-0.1 [facility] Work Phone: Comment on above: PATIENT WAS FASTINGP ERFORMED BY: [facility]6370 [facility] [id number] Immature granulocytes/100 WBC (Bld) 0 % Normal [facility] Work Phone: Comment on above: PATIENT WAS FASTINGP ERFORMED BY: MENDEZ [place] 6593070 [facility] [id number] Lymphocytes #/vol (Bld) 2.4 {x10E3/uL} Normal 0.7-3.1 [facility] Work Phone: Comment on above: PATIENT WAS FASTINGP ERFORMED BY: [address] [id number] Lymphocytes Auto #/vol (Bld) 2.4 {x10E3/uL} Normal 0.7-3.1 [facility] Work Phone: Lymphocytes/100 WBC (Bld) 36 % Normal [facility] Work Phone: Comment on above: PATIENT WAS FASTINGP ERFORMED BY: [place] [id number] [facility] [id number] Lymphocytes/100 WBC Auto (Bld) 36 % Normal [facility] Work Phone: MCH Auto Entitic mass (RBC) 27.5 pg Normal 26.6-33.0 [facility] Work Phone: MCH Entitic mass (RBC) 27.5 pg Normal 26.6-33.0 [facility] Work Phone: Comment on above: PATIENT WAS FASTINGP ERFORMED BY: [place] [id number] [facility] [id number] MCHC Auto mass conc (RBC) 34.5 g/dL Normal 31.5-35.7 [facility] Work Phone: MCHC mass conc (RBC) 34.5 g/dL Normal 31.5-35.7 [facility] Work Phone: Comment on above: PATIENT WAS FASTINGP ERFORMED BY: [place] [id number] [facility] [id number] MCV Auto Entitic volume (RBC) 80 fL Normal 79-97 [facility] Work Phone: MCV Entitic volume (RBC) 80 fL Normal 79-97 [facility] Work Phone: Comment on above: PATIENT WAS FASTINGP ERFORMED BY: MENDEZ [place] 6593070 [facility] [id number] Monocytes #/vol (Bld) 0.4 {x10E3/uL} Normal 0.1-0.9 [facility] Work Phone: Comment on above: PATIENT WAS FASTINGP ERFORMED BY: [address] [id number] Monocytes Auto #/vol (Bld) 0.4 {x10E3/uL} Normal 0.1-0.9 [facility] Work Phone: Monocytes/100 WBC (Bld) 7 % Normal [facility] Work Phone: Comment on above: PATIENT WAS FASTINGP ERFORMED BY: MENDEZ [facility] Muokjk[address] [id number] Monocytes/100 WBC Auto (Bld) 7 % Normal [facility] Work Phone: Neutrophils #/vol (Bld) 3.6 {x10E3/uL} Normal 1.4-7.0 [facility] Work Phone: Comment on above: PATIENT WAS FASTINGP ERFORMED BY: MENDEZ [facility] Kbptik7532 [facility] [id number] Neutrophils Auto #/vol (Bld) 3.6 {x10E3/uL} Normal 1.4-7.0 [facility] Work Phone: Neutrophils/100 WBC (Bld) 55 % Normal [facility] Work Phone: Comment on above: PATIENT WAS FASTINGP ERFORMED BY: [address] [id number] Neutrophils/100 WBC Auto (Bld) 55 % Normal [facility] Work Phone: Platelets #/vol (Bld) 233 {x10E3/uL} Normal 150-379 [facility] Work Phone: Comment on above: PATIENT WAS FASTINGP ERFORMED BY: [facility]6370 [facility] [id number] Platelets Auto #/vol (Bld) 233 {x10E3/uL} Normal 150-379 [facility] Work Phone: RBC #/vol (Bld) 5.59 {x10E6/uL} Normal 4.14-5.80 [facility] Internal Medicine Work Phone: Comment on above: PATIENT WAS FASTINGP ERFORMED BY: [place] [id number] [facility] [id number] RBC Auto #/vol (Bld) 5.59 {x10E6/uL} Normal 4.14-5.80 [facility] Internal Medicine Work Phone: WBC #/vol (Bld) 6.6 {x10E3/uL} Normal 3.4-10.8 [facility] Internal Medicine Work Phone: Comment on above: PATIENT WAS FASTINGP ERFORMED BY: [place] [id number] [facility] [id number] WBC Auto #/vol (Bld) 6.6 {x10E3/uL} Normal 3.4-10.8 [facility] Internal Medicine Work Phone: CBC W/AUTO DIFF WBC ([id number])O rdered By: Dry Cleaner Apprentice on 04-17-2017 Basophils (Bld) [#/Vol] 0.0 10*3/uL Normal 0.0-0.2 [facility]; [facility] Work Phone: Comment on above: PATIENT WAS FASTINGP ERFORMED BY: LabCorewell [facility]6370 [facility] [id number] Eosinophils (Bld) [#/Vol] 0.1 10*3/uL Normal 0.0-0.4 [facility]; [facility] Work Phone: Comment on above: PATIENT WAS FASTINGP ERFORMED BY: [place] [id number] [facility] [id number] Immature granulocytes (Bld) [#/Vol] 0.0 10*3/uL Normal 0.0-0.1 [facility]; [facility] Work Phone: Comment on above: PATIENT WAS FASTINGP ERFORMED BY: MENDEZ Caceres[address] [facility] HospitalEmoryin [place] [id number] Lymphocytes (Bld) [#/Vol] 2.4 10*3/uL Normal 0.7-3.1 [facility]; [facility] Work Phone: Comment on above: PATIENT WAS FASTINGP ERFORMED BY: MENDEZ LabBrittany Fcaiqt3568 [facility] [id number] Monocytes (Bld) [#/Vol] 0.4 10*3/uL Normal 0.1-0.9 [facility]; [facility] Work Phone: Comment on above: PATIENT WAS FASTINGP ERFORMED BY: MENDEZ Lee Veatfl6609 [facility] [id number] Neutrophils (Bld) [#/Vol] 3.6 10*3/uL Normal 1.4-7.0 [facility]; [facility] Work Phone: Comment on above: PATIENT WAS FASTINGP ERFORMED BY: MENDEZ LabGabbie Caceres[address] [facility]in [place] [id number] Platelets (Bld) [#/Vol] 233 10*3/uL Normal 150-379 [facility]; [facility] Work Phone: Comment on above: PATIENT WAS FASTINGP ERFORMED BY: LabCo Wzamof6218 [facility] [id number] RBC (Bld) [#/Vol] 5.59 10*6/uL Normal 4.14-5.80 [facility] Internal Medicine; [facility] Work Phone: Comment on above: PATIENT WAS FASTINGP ERFORMED BY: MENDEZ LabCo Ncbwwr2721 [facility] Servicesblin [place] [id number] WBC (Bld) [#/Vol] 6.6 10*3/uL Normal 3.4-10.8 Compre [facility]; [facility] Work Phone: Comment on above: PATIENT WAS FASTINGP ERFORMED BY: MENDEZ [facility] Ineyjf7059 [address]zo RoadDublin [place] [id number] LIPID PANEL (19958)on 2017 Cholesterol in HDL mass conc 34 mg/dL Abnormal [facility] Work Phone: Comment on above: PATIENT WAS FASTINGP ERFORMED BY: CB [facility] Lmwmhn2046 [address] RoadDublin [place] [id number] Cholesterol in VLDL mass conc VLDLCH Normal 5-40 [facility] Work Phone: Comment on above: The calculation for the VLDL cholesterol is not valid whentriglyceride level is >400 mg/dL.Triglyceride result indicated is too high for an accurate LDLcholesterol estimation. PATIENT WAS FASTINGP ERFORMED BY: MENDEZ [facility] Rwljrb4836 [address] RoadDublin [place] [id number] Cholesterol mass conc 199 mg/dL Normal 100-199 [facility] prehensive Internal Medicine Work Phone: Comment on above: PATIENT WAS FASTINGP ERFORMED BY: MENDEZ [facility] Abyipk1922 [address] RoadDuin [place] [id number] Triglyceride mass conc 421 mg/dL Abnormal 0-149 [facility] Work Phone: Comment on above: PATIENT WAS FASTINGP ERFORMED BY: MENDEZ [facility] Mpfkua9071 [address] [facility]in [place] [id number] METABOLIC PANEL, COMPREHENSI VE ([id number])on 04-17-2017 Albumin mass conc 4.6 g/dL Normal 3.5-5.5 Compreh ensive Internal Medicine Work Phone: Comment on above: PATIENT WAS FASTINGP ERFORMED BY: CB [facility] Jfmaod6907 [address] RoadDublin [place] [id number] Albumin/Globulin mass ratio 1.6 {ratio} Normal 1.2-2.2 [facility] Work Phone: Comment on above: PATIENT WAS FASTINGP ERFORMED BY: CB [facility] Fbxtwc1920 [address] RoadDublin [place] [id number] ALP enzyme act/vol 48 [iU]/L Normal 39-117 Compre hensive Internal Medicine Work Phone: Comment on above: PATIENT WAS FASTINGP ERFORMED BY: MENDEZ [facility] Uljwya8874 [address] RoadDublin [place] [id number] ALT enzyme act/vol 26 [iU]/L Normal 0-44 [facility] Internal Medicine Work Phone: Comment on above: PATIENT WAS FASTINGP ERFORMED BY: CB [facility] Wcofhd6541 [address] RoadDublin [place] [id number] AST enzyme act/vol 22 [iU]/L Normal 0-40 [facility] Work Phone: Comment on above: PATIENT WAS FASTINGP ERFORMED BY: MENDEZ [facility] Oohnbc9698 [address] RoadDublin [place] [id number] Bilirubin mass conc 0.7 mg/dL Normal 0.0-1.2 Compr ensive Internal Medicine Work Phone: Comment on above: PATIENT WAS FASTINGP ERFORMED BY: MENDEZ [facility] Wfavfu7363 [address] RoadDublin [place] [id number] Calcium mass conc 9.5 mg/dL Normal 8.7-10.2 Compreh [facility]ive Internal Medicine Work Phone: Comment on above: PATIENT WAS FASTINGP ERFORMED BY: MENDEZ [facility] Twpxut4750 [address] RoadDublin [place] [id number] Chloride molar conc 101 mmol/L Normal 96-106 Compr ensive Internal Medicine Work Phone: Comment on above: PATIENT WAS FASTINGP ERFORMED BY: MENDEZ [facility] Trrjxk2905 [address] RoadDublin [place] [id number] CO2 molar conc 22 mmol/L Normal 18-29 Comprehens tyron Internal Medicine Work Phone: Comment on above: PATIENT WAS FASTINGP ERFORMED BY: MENDEZ [facility] Ksymbf2715 [address] RoadDublin [place] [id number] Creatinine mass conc 1.00 mg/dL Normal 0.76-1.27 Comp [facility] centerensive Internal Medicine Work Phone: Comment on above: PATIENT WAS FASTINGP ERFORMED BY: MENDEZ [facility] Mxsngo3761 [address] RoadDublin [place] [id number] GFR/1.73 sq M predicted among blacks CKD-EPI vol rate/area (S/P/Bld) 102 1 Normal Comprehensiv e Internal Medicine Work Phone: Comment on above: PATIENT WAS FASTINGP ERFORMED BY: LabCoRaritan Bay Medical CenterCfdqrh4[address] [facility]in [place] [id number] GFR/1.73 sq M predicted among non-blacks CKD-EPI vol rate/area (S/P/Bld) 88 1 Normal [facility] Work Phone: Comment on above: PATIENT WAS FASTINGP ERFORMED BY: LabCorewell [facility] Hospital6370 [facility] [id number] Globulin Calculated mass conc (S) 2.8 g/dL Normal 1.5-4.5 [facility] Work Phone: Globulin mass conc (S) 2.8 g/dL Normal 1.5-4.5 [facility] Work Phone: Comment on above: PATIENT WAS FASTINGP ERFORMED BY: LabResearch Belton HospitalTmjycq3211 [facility] [id number] Glucose mass conc 121 mg/dL Abnormal 65-99 Compreh ensive Internal Medicine Work Phone: Comment on above: PATIENT WAS FASTINGP ERFORMED BY: LabCo Sghkxb4156 [facility] [id number] Potassium molar conc 4.6 mmol/L Normal 3.5-5.2 Comp rehensive Internal Medicine Work Phone: Comment on above: PATIENT WAS FASTINGP ERFORMED BY: LabCo Mkdrdw6796 [facility] [id number] Protein mass conc 7.4 g/dL Normal 6.0-8.5 Compreh ensive Internal Medicine Work Phone: Comment on above: PATIENT WAS FASTINGP ERFORMED BY: [facility] Cpojxx8533 [facility] [id number] Sodium molar conc 141 mmol/L Normal 134-144 Compreh ensive Internal Medicine Work Phone: Comment on above: PATIENT WAS FASTINGP ERFORMED BY: MENDEZ [facility] Wkqyvh3863 [address] RoadDublin [place] [id number] Urea nitrogen mass conc 17 mg/dL Normal 6-24 [facility] Work Phone: Comment on above: PATIENT WAS FASTINGP ERFORMED BY: MENDEZ [facility] Fgqlqj8475 [address] RoadDublin [place] [id number] Urea nitrogen/Creatinine mass ratio 17 mg/mg Normal 9-20 [facility] Work Phone: Comment on above: PATIENT WAS FASTINGP ERFORMED BY: MENDEZ [facility] Rnnhnu6928 [address] RoadDublin [place] [id number] METABOLIC PANEL, COMPREHENSI VE ([id number])Ordered By: Dry Cleaner Apprentice on 04-17-2017 ALP [Catalytic activity/Vol] 48 U/L Normal 39-117 [facility]; [facility] Work Phone: Comment on above: PATIENT WAS FASTINGP ERFORMED BY: MENDEZ [facility] Eaxgew2784 [address] RoadDublin [place] [id number] ALT [Catalytic activity/Vol] 26 U/L Normal 0-44 [facility]; [facility] Work Phone: Comment on above: PATIENT WAS FASTINGP ERFORMED BY: MENDEZ [facility] Dbmfkf3891 [address] RoadDublin [place] [id number] AST [Catalytic activity/Vol] 22 U/L Normal 0-40 [facility]; [facility] Work Phone: Comment on above: PATIENT WAS FASTINGP ERFORMED BY: MENDEZ [facility] Yerbsc2445 [address] RoadDublin [place] [id number] MICROALBUMINOrdered By: Syst em Chief Innovation Officer on 04-17-2017 Albumin DL <= 20 mg/L (U) [Mass/Vol] mg/dL Normal [facility]; [facility] Work Phone: Comment on above: PATIENT WAS FASTINGP ERFORMED BY: MENDEZ [facility] Mscaug0911 [address] RoadDublin [place] [id number] MICROALBUMINon 04-17-2017 Albumin DL <= 20 mg/L mass conc (U) mg/dL Normal [facility] Work Phone: Comment on above: PATIENT WAS FASTINGP ERFORMED BY: LabCo Kkussv[address] [facility] [id number] Albumin/Creatinine mass ratio (U) <2.9 Normal 0.0-30.0 [facility] Work Phone: Comment on above: PATIENT WAS FASTINGP ERFORMED BY: LabCo Dkfjws1215 [facility] [id number] Creatinine mass conc (U) 105.2 mg/dL Normal [facility] Work Phone: Comment on above: PATIENT WAS FASTINGP ERFORMED BY: MENEDZ Lab[facility] Qokogs3126 [facility] [id number] Microscopic Examinationon Bacteria LM.HPF #/area (Urine sed) None seen Normal [facility] Work Phone: Comment on above: PATIENT WAS FASTINGP ERFORMED BY: LabSaint [facility] Brusrv0667 [facility] [id number] Epithelial cells LM.HPF #/area (Urine sed) None seen Normal 0 - 10 [facility] Work Phone: Comment on above: PATIENT WAS FASTINGP ERFORMED BY: [facility] Ohmgws7229 [facility] [id number] Mucus LM Ql (Urine sed) Present Normal [facility] Work Phone: Mucus Ql (Urine sed) Present Normal Comp rehensive Internal Medicine Work Phone: Comment on above: PATIENT WAS FASTINGP ERFORMED BY: [facility] Imgwlm1386 [address] [facility] [place] [id number] RBC LM.HPF #/area (Urine sed) 0-2 Normal 0 - 2 [facility] Work Phone: Comment on above: PATIENT WAS FASTINGP ERFORMED BY: [facility] Zcwiap9014 [address] [facility] [place] [id number] WBC LM.HPF #/area (Urine sed) 0-5 Normal 0 - 5 [facility] Work Phone: Comment on above: PATIENT WAS FASTINGP ERFORMED BY: MENDEZ Dudleylin6[address] RoadDublin [place] [id number] TSH ([id number])on 04-17-2017 Thyrotropin Qn 2.930 {uIU/mL} Normal 0.450-4.50 0 [facility] Work Phone: Comment on above: PATIENT WAS FASTINGP ERFORMED BY: MENDEZ Caceres6370 [address] RoadDublin [place] [id number] URINALYSIS, W/ MICRO ([id number]) on 04-17-2017 Appearance Nom (U) Clear Normal Compre hensive Internal Medicine Work Phone: Comment on above: PATIENT WAS FASTINGP ERFORMED BY: MENDEZ Dudleylin6[address] RoadDublin [place] [id number] Bilirubin Ql (U) Negative Normal Comprehe nsive Internal Medicine Work Phone: Comment on above: PATIENT WAS FASTINGP ERFORMED BY: MENDEZ Dudleylin6[address]Dublin [place] [id number] Color Nom (U) Yellow Normal Comprehensi ve Internal Medicine Work Phone: Comment on above: PATIENT WAS FASTINGP ERFORMED BY: MENDEZ Dudleylin6[address] RoadDublin [place] [id number] Glucose Ql (U) Negative Normal Comprehens tyron Internal Medicine Work Phone: Comment on above: PATIENT WAS FASTINGP ERFORMED BY: MENDEZ Dudleylin[address] RoadDublin [place] [id number] Hemoglobin Ql (U) Negative Normal Compreh ensive Internal Medicine Work Phone: Comment on above: PATIENT WAS FASTINGP ERFORMED BY: MENDEZ LabGabbie DudleyLfgoen3656 [address] RoadDublin [place] [id number] Hemoglobin Test strip Ql (U) Negative Normal [facility] Work Phone: Ketones Ql (U) Negative Normal Comprehens tyron [facility] Medicine Work Phone: Comment on above: PATIENT WAS FASTINGP ERFORMED BY: MENDEZ Dudleylin[address]ublin [place] [id number] Leukocyte esterase Test strip Ql (U) Negative Normal [facility] Work Phone: Comment on above: PATIENT WAS FASTINGP ERFORMED BY: MENDEZ CaroleGabbie DudleyGoxzzd7393 [facility] [id number] Microscopic observation LM Nom (Urine sed) MICRON Normal [facility] Work Phone: Comment on above: Microscopic follows if indicated. PATIENT WAS FASTINGP ERFORMED BY: MENDEZ Caceres6370 [facility] [id number] Microscopic observation LM Nom (Urine sed) See below: Normal [facility] Work Phone: Comment on above: Microscopic was giovanni cated and was performed. PATIENT WAS FASTINGP ERFORMED BY: MENDEZ Dudleylin6370 [facility] [id number] Nitrite Ql (U) Negative Normal Comprehens tyron [facility] Medicine Work Phone: Comment on above: PATIENT WAS FASTINGP ERFORMED BY: MENDEZ Dudleylin6370 [facility] [id number] Nitrite Test strip Ql (U) Negative Normal [facility] Work Phone: pH (U) 5.5 [pH] Normal 5.0-7.5 [facility] Work Phone: Comment on above: PATIENT WAS FASTINGP ERFORMED BY: MENDEZ Dudleylin6370 [facility] [id number] pH Test strip (U) 5.5 [pH] Normal 5.0-7.5 Compreh ensive Internal Medicine Work Phone: Protein Ql (U) Negative Normal Comprehens tyron Internal Medicine Work Phone: Comment on above: PATIENT WAS FASTINGP ERFORMED BY: MENDEZ LabSaint [facility] Jobkec0530 [facility] [id number] Protein Test strip Ql (U) Negative Normal [facility] Work Phone: Specific gravity Relative Density (U) 1.019 1 Normal 1.005-1.03 0 [facility] Work Phone: Comment on above: PATIENT WAS FASTINGP ERFORMED BY: MENDEZ Josesito Caceres6370 [address] [facility] [id number] Urobilinogen Test strip mass conc (U) 0.2 mg/dL Normal 0.2-1.0 Comprehensiv e Internal Medicine Work Phone: Comment on above: PATIENT WAS FASTINGP ERFORMED BY: MENDEZ Josesito Caceres6370 [facility] [id number] URINALYSIS, W/ MICRO ([id number]) Ordered By: Dry Cleaner Apprentice on 04-17-2017 Bilirubin Ql (U) Negative Normal Comprehe nsive Internal Medicine; [facility] Work Phone: Comment on above: PATIENT WAS FASTINGP ERFORMED BY: MENDEZ Josesito Caceres6370 [facility] [id number] Glucose Ql (U) Negative Normal Comprehens tyron [facility] Medicine; [facility] Work Phone: Comment on above: PATIENT WAS FASTINGP ERFORMED BY: MENDEZ Josesito Dudleylin6[address] [facility] [id number] Hemoglobin Ql (U) Negative Normal Compreh ensive Internal Medicine; [facility] Work Phone: Comment on above: PATIENT WAS FASTINGP ERFORMED BY: MENDEZ Josesito Caceres6370 [facility] [id number] Ketones Ql (U) Negative Normal Comprehens tyron [facility]; [facility] Work Phone: Comment on above: PATIENT WAS FASTINGP ERFORMED BY: MENDEZ Josesito Dudleylin6370 [facility] [id number] Leukocyte esterase Test strip Ql (U) Negative Normal [facility]; [facility] Work Phone: Comment on above: PATIENT WAS FASTINGP ERFORMED BY: MENDEZ Josesito Dudleylin6[address] [facility]in [place] [id number] Nitrite Ql (U) Negative Normal Comprehens tyron [facility] Medicine; [facility] Work Phone: Comment on above: PATIENT WAS FASTINGP ERFORMED BY: MENDEZ [facility] Lavket9469 [facility] ServicesAt[facility] [id number] Protein Ql (U) Negative Normal Comprehens tyron [facility] Medicine; [facility] Work Phone: Comment on above: PATIENT WAS FASTINGP ERFORMED BY: [facility] Jjnmkr6905 [address] [facility] [place] [id number] Urobilinogen (U) [Mass/Vol] 0.2 mg/dL Normal 0.2-1.0 [facility]; [facility] Work Phone: Comment on above: PATIENT WAS FASTINGP ERFORMED BY: [facility] Cmgsmj2033 [address] [facility] QuadAtrium Health W[facility] [id number] Blood Glucose , Office ([phone] 2)Ordered By: Nita Coleman on 01-23-2017 Glucose Glucometer molar conc (BldC) 119 1 Normal [facility] Work Phone: HgA1C , Office ([phone])Ordere d By: Nita Coleman on 01-23-2017 Hemoglobin A1c/Hemoglobin.total mass fraction (Bld) 6.0 % Normal 4.6 - 7.1 Comprehensiv e Internal Medicine Work Phone: PSA (PROSTATE SPECIFIC ANTIG EN) (25020)on 01-09-2017 Prostate specific Ag mass conc 0.5 ng/mL Normal 0.0-4.0 [facility] Work Phone: Comment on above: Bradly ECLIA methodol ogy. .According to the [place] [employer], Serum PSA shoulddecrease and remain at undetectable levels after radicalprostatectomy. The AUA defines biochemical recurrence as an initialPSA value 0.2 ng/mL or greater followed by a subsequent confirmatoryPSA value 0.2 ng/mL or greater.Values obtained with different assay methods or kits cannot be usedinterchangeably. Results cannot be interpreted as absolute evidenceof the presence or absence of malignant disease. PERFORMED BY: MENDEZ Lab Gabbie Iyjhye6[address] [facility] HospitalPando NetworksAtrium Health Waxhaw [id number] Blood Glucose , Office (2136 2)Ordered By: Nita Coleman on 10-17-2016 Glucose Glucometer molar conc (BldC) 106 1 Normal [facility] Work Phone: HgA1C , Office ([phone])Melitone d By: Nita Coleman on 10-17-2016 Hemoglobin A1c/Hemoglobin.total mass fraction (Bld) 5.8 % Normal 4.6 - 7.1 Comprehensiv e Internal Medicine Work Phone: CALCIFEDIOL (55215)on 2016 25-Hydroxyvitamin D2+25-Hydroxyvitamin D3 mass conc 60.5 ng/mL Normal 30.0-100.0 [facility] Work Phone: Comment on above: Vitamin D deficiency has been defined by the [place] ofMedicine and an Endocrine Society practice guideline as alevel of serum 25-OH vitamin D less than 20 ng/mL (1,2).The Endocrine Society went on to further define vitamin Dinsufficiency as a level between 21 and 29 ng/mL (2).1. IOM ([place] of Medicine). 2010. Dietary reference intakes for calcium and D. [place]: The National Academies Press.2. Magno MF, Do MILES, Jos PRATER, et al. Evaluation, treatment, and prevention of vitamin D deficiency: an Endocrine Society clinical practice guideline. JCEM. 2010; 96(7):1911-30. PATIENT WAS FASTINGP ERFORMED BY: GetNinjas70 [facility] [id number] CBC WITH MANUAL DIFF (63415) on 10-03-2016 Basophils #/vol (Bld) 0.0 {x10E3/uL} Normal 0.0-0.2 [facility] Work Phone: Comment on above: PATIENT WAS FASTINGP ERFORMED BY: RetiDiag6370 vocaltapAtrium Health Waxhaw [id number] Basophils Auto #/vol (Bld) 0.0 {x10E3/uL} Normal 0.0-0.2 [facility] Work Phone: Basophils/100 WBC (Bld) 0 % Normal [facility] Work Phone: Comment on above: PATIENT WAS FASTINGP ERFORMED BY: GetNinjas70 vocaltapAtrium Health Waxhaw [id number] Basophils/100 WBC Auto (Bld) 0 % Normal [facility] Work Phone: Eosinophils #/vol (Bld) 0.2 {x10E3/uL} Normal 0.0-0.4 [facility] Work Phone: Comment on above: PATIENT WAS FASTINGP ERFORMED BY: MENDEZ M360LOHAS outdoorsGabbie Caceres6370 [facility] [id number] Eosinophils Auto #/vol (Bld) 0.2 {x10E3/uL} Normal 0.0-0.4 [facility] Work Phone: Eosinophils/100 WBC (Bld) 2 % Normal [facility] Work Phone: Comment on above: PATIENT WAS FASTINGP ERFORMED BY: MENDEZ Dudleylin6370 [facility] [id number] Eosinophils/100 WBC Auto (Bld) 2 % Normal [facility] Work Phone: Erythrocyte distribution width Auto Ratio (RBC) 14.5 % Normal 12.3-15.4 [facility] Work Phone: Erythrocyte distribution width Ratio (RBC) 14.5 % Normal 12.3-15.4 [facility] Work Phone: Comment on above: PATIENT WAS FASTINGP ERFORMED BY: MENDEZ [facility] Hospitalmelyssa DudleySboklf4093 [facility] [id number] Hematocrit Auto Volume Fraction (Bld) 47.1 % Normal 37.5-51.[address] [facility] Internal Medicine Work Phone: Hematocrit Volume Fraction (Bld) 47.1 % Normal 37.5-51.0 [facility] Work Phone: Comment on above: PATIENT WAS FASTINGP ERFORMED BY: MENDEZ LabCorewell Health Butterworth Hospital6370 [facility] [id number] Hemoglobin mass conc (Bld) 15.5 g/dL Normal 12.6-17.7 [facility] Work Phone: Comment on above: PATIENT WAS FASTINGP ERFORMED BY: MENDEZ LabCorewell Health Butterworth Hospital6370 [facility] [id number] Immature granulocytes #/vol (Bld) 0.0 {x10E3/uL} Normal 0.0-0.1 [facility] Work Phone: Comment on above: PATIENT WAS FASTINGP ERFORMED BY: MENDEZ LabPrmelyssa Isnhoq3221 [facility] [id number] Immature granulocytes/100 WBC (Bld) 0 % Normal [facility] Work Phone: Comment on above: PATIENT WAS FASTINGP ERFORMED BY: MENDEZ LabSaint [facility] Gzttxn8795 [facility] [id number] Lymphocytes #/vol (Bld) 2.4 {x10E3/uL} Normal 0.7-3.1 [facility] Work Phone: Comment on above: PATIENT WAS FASTINGP ERFORMED BY: MENDEZ [place] 6593070 [facility] [id number] Lymphocytes Auto #/vol (Bld) 2.4 {x10E3/uL} Normal 0.7-3.1 [facility] Work Phone: Lymphocytes/100 WBC (Bld) 31 % Normal [facility] Work Phone: Comment on above: PATIENT WAS FASTINGP ERFORMED BY: MENDEZ [place] 6593070 [facility] [id number] Lymphocytes/100 WBC Auto (Bld) 31 % Normal [facility] Work Phone: MCH Auto Entitic mass (RBC) 27.5 pg Normal 26.6-33.0 [facility] Work Phone: MCH Entitic mass (RBC) 27.5 pg Normal 26.6-33.0 [facility] Work Phone: Comment on above: PATIENT WAS FASTINGP ERFORMED BY: [place] 3332470 [facility] [id number] MCHC Auto mass conc (RBC) 32.9 g/dL Normal 31.5-35.7 [facility] Work Phone: MCHC mass conc (RBC) 32.9 g/dL Normal 31.5-35.7 Comp rehensive Internal Medicine Work Phone: Comment on above: PATIENT WAS FASTINGP ERFORMED BY: MENDEZ [facility]6370 [facility] [id number] MCV Auto Entitic volume (RBC) 84 fL Normal 79-97 [facility] Work Phone: MCV Entitic volume (RBC) 84 fL Normal 79-97 [facility] Work Phone: Comment on above: PATIENT WAS FASTINGP ERFORMED BY: MENDEZ LabBrittany Stdkee6204 [facility] [id number] Monocytes #/vol (Bld) 0.6 {x10E3/uL} Normal 0.1-0.9 [facility] Work Phone: Comment on above: PATIENT WAS FASTINGP ERFORMED BY: MENDEZ [facility] HospitalGabbie DudleyBossom3606 [facility] [id number] Monocytes Auto #/vol (Bld) 0.6 {x10E3/uL} Normal 0.1-0.9 [facility] Work Phone: Monocytes/100 WBC (Bld) 7 % Normal [facility] Work Phone: Comment on above: PATIENT WAS FASTINGP ERFORMED BY: MENDEZ Dudleylin6370 [facility] [id number] Monocytes/100 WBC Auto (Bld) 7 % Normal [facility] Work Phone: Neutrophils #/vol (Bld) 4.6 {x10E3/uL} Normal 1.4-7.0 [facility] Work Phone: Comment on above: PATIENT WAS FASTINGP ERFORMED BY: MENDEZ LabCorewell Health Butterworth Hospital6370 [facility] [id number] Neutrophils Auto #/vol (Bld) 4.6 {x10E3/uL} Normal 1.4-7.0 [facility] Work Phone: Neutrophils/100 WBC (Bld) 60 % Normal [facility] Work Phone: Comment on above: PATIENT WAS FASTINGP ERFORMED BY: MENDEZ LabSaint [facility] Ixwfir4967 [facility] [id number] Neutrophils/100 WBC Auto (Bld) 60 % Normal [facility] Work Phone: Platelets #/vol (Bld) 252 {x10E3/uL} Normal 150-379 [facility] Internal Medicine Work Phone: Comment on above: PATIENT WAS FASTINGP ERFORMED BY: MENDEZ [place] 6593070 [facility] [id number] Platelets Auto #/vol (Bld) 252 {x10E3/uL} Normal 150-379 [facility] Work Phone: RBC #/vol (Bld) 5.64 {x10E6/uL} Normal 4.14-5.80 [facility] Internal [facility] Work Phone: Comment on above: PATIENT WAS FASTINGP ERFORMED BY: MENDEZ LamPrmelyssa DudleyXkbkfg9342 [facility] [id number] RBC Auto #/vol (Bld) 5.64 {x10E6/uL} Normal 4.14-5.80 [facility] Work Phone: WBC #/vol (Bld) 7.7 {x10E3/uL} Normal 3.4-10.8 [facility] Internal Medicine Work Phone: Comment on above: PATIENT WAS FASTINGP ERFORMED BY: MENDEZ [facility] HospitalGabbie Pgvsqw5784 [facility] [id number] WBC Auto #/vol (Bld) 7.7 {x10E3/uL} Normal 3.4-10.8 [facility] Internal Medicine Work Phone: CBC WITH MANUAL DIFF (40141) Ordered By: Dry Cleaner Apprentice on 10-03-2016 Basophils (Bld) [#/Vol] 0.0 10*3/uL Normal 0.0-0.2 [facility]; [facility] Work Phone: Comment on above: PATIENT WAS FASTINGP ERFORMED BY: MENDEZ [facility]6370 [facility] [id number] Eosinophils (Bld) [#/Vol] 0.2 10*3/uL Normal 0.0-0.4 [facility]; [facility] Work Phone: Comment on above: PATIENT WAS FASTINGP ERFORMED BY: MENDEZ LabComelyssa CaceresUnangi0[address]blin [place] [id number] Immature granulocytes (Bld) [#/Vol] 0.0 10*3/uL Normal 0.0-0.1 [facility]; [facility] Work Phone: Comment on above: PATIENT WAS FASTINGP ERFORMED BY: CB [facility] Ciwiir6053 [address] Roadblin [place] [id number] Lymphocytes (Bld) [#/Vol] 2.4 10*3/uL Normal 0.7-3.1 [facility]; [facility] Work Phone: Comment on above: PATIENT WAS FASTINGP ERFORMED BY: MENDEZ LabComelyssa DudleyVvsoww6892 [address] Roadblin [place] [id number] Monocytes (Bld) [#/Vol] 0.6 10*3/uL Normal 0.1-0.9 [facility]; [facility] Work Phone: Comment on above: PATIENT WAS FASTINGP ERFORMED BY: MENDEZ [facility] Idxgum2497 [address]blin [place] [id number] Neutrophils (Bld) [#/Vol] 4.6 10*3/uL Normal 1.4-7.0 [facility]; [facility] Work Phone: Comment on above: PATIENT WAS FASTINGP ERFORMED BY: CB [facility] Fhtfti6367 [address] RoadDublin [place] [id number] Platelets (Bld) [#/Vol] 252 10*3/uL Normal 150-379 [facility]; [facility] Work Phone: Comment on above: PATIENT WAS FASTINGP ERFORMED BY: CB [facility] Abqabe2087 [address] RoadDublin [place] [id number] RBC (Bld) [#/Vol] 5.64 10*6/uL Normal 4.14-5.80 [facility] Internal Medicine; [facility] Work Phone: Comment on above: PATIENT WAS FASTINGP ERFORMED BY: MENDEZ LabGabbie DudleyNsqvix7045 [facility]in [place] [id number] WBC (Bld) [#/Vol] 7.7 10*3/uL Normal 3.4-10.8 [facility]; [facility] Work Phone: Comment on above: PATIENT WAS FASTINGP ERFORMED BY: MENDEZ LabGabbie DudleyYwogmo8866 [facility] [id number] Lipid Panel (61590)on 2016 Cholesterol in HDL mass conc 32 mg/dL Abnormal [facility] Work Phone: Comment on above: PATIENT WAS FASTINGP ERFORMED BY: MENDEZ LabGabbie DudleyLpcljy1089 [facility] [id number] Cholesterol in LDL mass conc 87 mg/dL Normal 0-99 [facility] Work Phone: Comment on above: PATIENT WAS FASTINGP ERFORMED BY: MENDEZ Dudleylin6370 [facility] [id number] Cholesterol in LDL/Cholesterol in HDL mass ratio 2.7 {ratio_units} Normal 0.0-3.6 [facility] Work Phone: Comment on above: LDL/HDL Ratio Men Wo men 1/2 Avg.Risk 1.0 1.5 Avg.Risk 3.6 3.2 2X Avg.Risk 6.2 5.0 3X Avg.Risk 8.0 6.1 PATIENT WAS FASTINGP ERFORMED BY: MENDEZ Dudleylin6370 [facility] [id number] Cholesterol in VLDL mass conc 79 mg/dL Abnormal 5-40 [facility] Work Phone: Comment on above: PATIENT WAS FASTINGP ERFORMED BY: MENDEZ LabGabbie DudleyBtkmfc9474 [facility] [id number] Cholesterol mass conc 198 mg/dL Normal 100-199 [facility] prehensive Internal Medicine Work Phone: Comment on above: PATIENT WAS FASTINGP ERFORMED BY: MENDEZ LabGabbie DudleyZjkpwi35[address] [facility] [id number] Triglyceride mass conc 393 mg/dL Abnormal 0-149 [facility] Work Phone: Comment on above: PATIENT WAS FASTINGP ERFORMED BY: MENDEZ LabComelyssa Revivr0216 [address] RoadDublin [place] [id number] MICROALBUMINOrdered By: Syst em Chief Innovation Officer on 10-03-2016 Albumin DL <= 20 mg/L (U) [Mass/Vol] mg/dL Normal [facility]; [facility] Work Phone: Comment on above: PATIENT WAS FASTINGP ERFORMED BY: MENDEZ [facility] Kodlci4342 [address] RoadDublin [place] [id number] MICROALBUMINon 10-03-2016 Albumin DL <= 20 mg/L mass conc (U) mg/dL Normal [facility] Work Phone: Comment on above: PATIENT WAS FASTINGP ERFORMED BY: MENDEZ Dudleylin6[address] RoadDublin [place] [id number] Albumin/Creatinine mass ratio (U) <1.9 Normal 0.0-30.0 [facility] Work Phone: Comment on above: PATIENT WAS FASTINGP ERFORMED BY: MENDEZ LabGabbie DudleyNmbgag6283 [address] RoadDublin [place] [id number] Creatinine mass conc (U) 159.5 mg/dL Normal [facility] Work Phone: Comment on above: PATIENT WAS FASTINGP ERFORMED BY: MENDEZ Dudleylin6[address] RoadDublin [place] [id number] Metabolic Panel, Comprehensi ve (56058)on 10-03-2016 Albumin mass conc 4.7 g/dL Normal 3.5-5.5 Compreh ensive Internal Medicine Work Phone: Comment on above: PATIENT WAS FASTINGP ERFORMED BY: MENDEZ LabComelyssa Rkrelw4533 [address] RoadDublin [place] [id number] Albumin/Globulin mass ratio 1.7 {ratio} Normal 1.2-2.2 [facility] Work Phone: Comment on above: PATIENT WAS FASTINGP ERFORMED BY: MENDEZ [facility] Gvzyzt2105 [address] RoadDublin [place] [id number] ALP enzyme act/vol 46 [iU]/L Normal 39-117 [facility] Work Phone: Comment on above: PATIENT WAS FASTINGP ERFORMED BY: [facility] Jaerui5753 [address] RoadDublin [place] [id number] ALT enzyme act/vol 15 [iU]/L Normal 0-44 [facility] Internal Medicine Work Phone: Comment on above: PATIENT WAS FASTINGP ERFORMED BY: CB [facility] Nstpqp7980 [address] RoadDublin [place] [id number] AST enzyme act/vol 14 [iU]/L Normal 0-40 [facility] Internal Medicine Work Phone: Comment on above: PATIENT WAS FASTINGP ERFORMED BY: MENDEZ [facility] Pwrlte9062 Aloz[address] RoadDublin [place] [id number] Bilirubin mass conc 0.5 mg/dL Normal 0.0-1.2 Compr ensive Internal Medicine Work Phone: Comment on above: PATIENT WAS FASTINGP ERFORMED BY: [facility] Xhlbnu3779 [address] Roadblin [place] [id number] Calcium mass conc 9.9 mg/dL Normal 8.7-10.2 Compreh [facility]ive Internal Medicine Work Phone: Comment on above: PATIENT WAS FASTINGP ERFORMED BY: [facility] Irsicp7932 [address]blin [place] [id number] Chloride molar conc 100 mmol/L Normal 96-106 Compr [facility] Internal Medicine Work Phone: Comment on above: PATIENT WAS FASTINGP ERFORMED BY: [facility] Vxnktf5605 [address] RoadDublin [place] [id number] CO2 molar conc 24 mmol/L Normal 18-29 Comprehens tyron Internal Medicine Work Phone: Comment on above: PATIENT WAS FASTINGP ERFORMED BY: [facility] Qoieff5124 [address] RoadDublin [place] [id number] Creatinine mass conc 0.88 mg/dL Normal 0.76-1.27 Comp [facility] centerensive Internal Medicine Work Phone: Comment on above: PATIENT WAS FASTINGP ERFORMED BY: MENDEZ Dudleylin[address] [facility] [id number] GFR/1.73 sq M predicted among blacks CKD-EPI vol rate/area (S/P/Bld) 117 mL/min/1.73 Normal Comprehensiv e Internal Medicine Work Phone: Comment on above: PATIENT WAS FASTINGP ERFORMED BY: MENDEZ Dudleylin[address] [facility] [id number] GFR/1.73 sq M predicted among non-blacks CKD-EPI vol rate/area (S/P/Bld) 102 mL/min/1.73 Normal [facility] Work Phone: Comment on above: PATIENT WAS FASTINGP ERFORMED BY: MENDEZ Dudleylin6370 [facility] [id number] Globulin Calculated mass conc (S) 2.8 g/dL Normal 1.5-4.5 [facility] Work Phone: Globulin mass conc (S) 2.8 g/dL Normal 1.5-4.5 [facility] Work Phone: Comment on above: PATIENT WAS FASTINGP ERFORMED BY: MENDEZ Dudleylin6370 [facility] [id number] Glucose mass conc 116 mg/dL Abnormal 65-99 Compreh ensive Internal Medicine Work Phone: Comment on above: PATIENT WAS FASTINGP ERFORMED BY: MENDEZ Dudleylin6370 [facility] [id number] Potassium molar conc 4.5 mmol/L Normal 3.5-5.2 Comp rehensive Internal Medicine Work Phone: Comment on above: PATIENT WAS FASTINGP ERFORMED BY: MENDEZ Dudleylin6370 [facility] [id number] Protein mass conc 7.5 g/dL Normal 6.0-8.5 Compreh ensive Internal Medicine Work Phone: Comment on above: PATIENT WAS FASTINGP ERFORMED BY: MENDEZ Dudleylin6370 [facility] [id number] Sodium molar conc 140 mmol/L Normal 134-144 Compreh ensive Internal Medicine Work Phone: Comment on above: PATIENT WAS FASTINGP ERFORMED BY: MENDEZ LabComelyssa CaceresZmgcgd1581 Alonzo Roadblin [place] [id number] Urea nitrogen mass conc 15 mg/dL Normal 6-24 [facility] Work Phone: Comment on above: PATIENT WAS FASTINGP ERFORMED BY: MENDEZ [facility] Imuzay0869 [address] Roadblin [place] [id number] Urea nitrogen/Creatinine mass ratio 17 mg/mg Normal 9-20 [facility] Work Phone: Comment on above: PATIENT WAS FASTINGP ERFORMED BY: MENDEZ [facility] Iszgzh7656 [address] [facility] [place] [id number] Metabolic Panel, Comprehensi ve ([id number])Ordered By: Dry Cleaner Apprentice on 10-03-2016 ALP [Catalytic activity/Vol] 46 U/L Normal 39-117 [facility]; [facility] Work Phone: Comment on above: PATIENT WAS FASTINGP ERFORMED BY: MENDEZ [facility] Lkywcs4330 [address] [employer]bl[employer] [place] [id number] ALT [Catalytic activity/Vol] 15 U/L Normal 0-44 [facility]; [facility] Work Phone: Comment on above: PATIENT WAS FASTINGP ERFORMED BY: MENDEZ [facility] Gqkblf0504 [address] [employer] Therapeuticsbl[employer] [place] [id number] AST [Catalytic activity/Vol] 14 U/L Normal 0-40 [facility]; [facility] Work Phone: Comment on above: PATIENT WAS FASTINGP ERFORMED BY: MENDEZ [facility] Otmsyf[address]42 [address] [facility] [place] [id number] Microscopic Examinationon Bacteria LM.HPF #/area (Urine sed) None seen Normal [facility] Work Phone: Comment on above: PATIENT WAS FASTINGP ERFORMED BY: MENDEZ [facility] Bczhud5332 [address] RoadDublin [place] [id number] Crystals LM Nom (Urine sed) Calcium Oxalate Normal [facility] Work Phone: Comment on above: PATIENT WAS FASTINGP ERFORMED BY: [facility] Ynyidk3004 [address] [facility]in [place] [id number] Epithelial cells LM.HPF #/area (Urine sed) None seen Normal 0 - 10 [facility] Work Phone: Comment on above: PATIENT WAS FASTINGP ERFORMED BY: [facility] Famzwb6901 [address] [facility] [id number] Mucus LM Ql (Urine sed) Present Normal [facility] Work Phone: Mucus Ql (Urine sed) Present Normal Comp rehensive Internal Medicine Work Phone: Comment on above: PATIENT WAS FASTINGP ERFORMED BY: [facility] Zsgtvi8254 [facility] [id number] RBC LM.HPF #/area (Urine sed) 0-2 Normal 0 - 2 [facility] Work Phone: Comment on above: PATIENT WAS FASTINGP ERFORMED BY: [facility] Oevbwm1116 [facility] [id number] Unidentified crystals LM Ql (Urine sed) Present Abnormal [facility] Work Phone: Comment on above: PATIENT WAS FASTINGP ERFORMED BY: [facility] Wnxmtc8661 [facility] [id number] WBC LM.HPF #/area (Urine sed) 0-5 Normal 0 - 5 [facility] Work Phone: Comment on above: PATIENT WAS FASTINGP ERFORMED BY: [facility] Zknwbj1834 [facility] [id number] TSH (25565)on 10-03-2016 Thyrotropin Qn 4.020 {uIU/mL} Normal 0.450-4.50 0 [facility] Work Phone: Comment on above: PATIENT WAS FASTINGP ERFORMED BY: [facility] Ysllmr4646 [address] [facility] [id number] URINALYSIS, W/ MICRO ([id number]) on 10-03-2016 Appearance Nom (U) Clear Normal Compre hensive Internal Medicine Work Phone: Comment on above: PATIENT WAS FASTINGP ERFORMED BY: MENDEZ [facility] Gwiihv8865 [address] RoadDublin [place] [id number] Bilirubin Ql (U) Negative Normal Comprehe nsive Internal Medicine Work Phone: Comment on above: PATIENT WAS FASTINGP ERFORMED BY: MENDEZ [facility] Rpwfva4396 [address] RoadDublin [place] [id number] Color Nom (U) Yellow Normal Comprehensi ve Internal Medicine Work Phone: Comment on above: PATIENT WAS FASTINGP ERFORMED BY: MENDEZ [facility] Axnqbr8557 [address] RoadDublin [place] [id number] Glucose Ql (U) Negative Normal Comprehens tyron Internal Medicine Work Phone: Comment on above: PATIENT WAS FASTINGP ERFORMED BY: MENDEZ [facility] Qjpwrv1004 [address] RoadDublin [place] [id number] Hemoglobin Ql (U) Negative Normal Compreh ensive Internal Medicine Work Phone: Comment on above: PATIENT WAS FASTINGP ERFORMED BY: MENDEZ [facility] Nfytqx7617 [address] RoadDublin [place] [id number] Hemoglobin Test strip Ql (U) Negative Normal [facility] Work Phone: Ketones Ql (U) Negative Normal Comprehens tyron Internal Medicine Work Phone: Comment on above: PATIENT WAS FASTINGP ERFORMED BY: MENDEZ [facility] Tamljs8579 [address] RoadDublin [place] [id number] Leukocyte esterase Test strip Ql (U) Negative Normal [facility] Work Phone: Comment on above: PATIENT WAS FASTINGP ERFORMED BY: MENDEZ [facility] Nbzyom4027 [address] RoadDublin [place] [id number] Microscopic observation LM Nom (Urine sed) MICRON Normal [facility] Work Phone: Comment on above: Microscopic follows if indicated. PATIENT WAS FASTINGP ERFORMED BY: MENDEZ [facility] Lxrlbr0989 [address] RoadDublin [place] [id number] Microscopic observation LM Nom (Urine sed) See below: Normal [facility] Work Phone: Comment on above: Microscopic was giovanni cated and was performed. PATIENT WAS FASTINGP ERFORMED BY: MENDEZ LabComelyssa CaceresBuisur5755 [address] RoadDublin [place] [id number] Nitrite Ql (U) Negative Normal Comprehens tyron Internal Medicine Work Phone: Comment on above: PATIENT WAS FASTINGP ERFORMED BY: MENDEZ [facility] Mhjera4463 [address] RoadDublin [place] [id number] Nitrite Test strip Ql (U) Negative Normal [facility] Work Phone: pH (U) 6.0 [pH] Normal 5.0-7.5 [facility] Work Phone: Comment on above: PATIENT WAS FASTINGP ERFORMED BY: MENDEZ LabComelyssa DudleyXdvvyt4328 [address] RoadDublin [place] [id number] pH Test strip (U) 6.0 [pH] Normal 5.0-7.5 Compreh ensive Internal Medicine Work Phone: Protein Ql (U) Negative Normal Comprehens tyron Internal Medicine Work Phone: Comment on above: PATIENT WAS FASTINGP ERFORMED BY: MENDEZ LabComelyssa CaceresQlbjak1563 [address] RoadDublin [place] [id number] Protein Test strip Ql (U) Negative Normal [facility] Work Phone: Specific gravity Relative Density (U) 1.021 1 Normal 1.005-1.03 0 [facility] Work Phone: Comment on above: PATIENT WAS FASTINGP ERFORMED BY: MENDEZ [facility] Tnzeqc1599 [address] RoadDublin [place] [id number] Urobilinogen Test strip mass conc (U) 0.2 mg/dL Normal 0.2-1.0 Comprehensiv e Internal Medicine Work Phone: Comment on above: PATIENT WAS FASTINGP ERFORMED BY: MENDEZ [facility] Ckanbb4343 [address] RoadDublin [place] [id number] URINALYSIS, W/ MICRO ([id number]) Ordered By: Dry Cleaner Apprentice on 10-03-2016 Bilirubin Ql (U) Negative Normal Comprehe nsive Internal Medicine; [facility] Work Phone: Comment on above: PATIENT WAS FASTINGP ERFORMED BY: MENDEZ Caceres6370 [address] RoadDublin [place] [id number] Glucose Ql (U) Negative Normal Comprehens tyron Internal Medicine; [facility] Work Phone: Comment on above: PATIENT WAS FASTINGP ERFORMED BY: MENDEZ Samano70 [address] RoadDublin [place] [id number] Hemoglobin Ql (U) Negative Normal Compreh ensive Internal Medicine; [facility] Work Phone: Comment on above: PATIENT WAS FASTINGP ERFORMED BY: MENDEZ Samano70 [address] RoadDublin [place] [id number] Ketones Ql (U) Negative Normal Comprehens tyron [facility] Medicine; [facility] Work Phone: Comment on above: PATIENT WAS FASTINGP ERFORMED BY: MENDEZ Caceres6370 [address] RoadDublin [place] [id number] Leukocyte esterase Test strip Ql (U) Negative Normal [facility]; [facility] Work Phone: Comment on above: PATIENT WAS FASTINGP ERFORMED BY: MENDEZ Caceres6370 [address] RoadDublin [place] [id number] Nitrite Ql (U) Negative Normal Comprehens tyron Internal Medicine; [facility] Work Phone: Comment on above: PATIENT WAS FASTINGP ERFORMED BY: MENDEZ Samano70 [address] RoadDublin [place] [id number] Protein Ql (U) Negative Normal Comprehens tyron [facility] Medicine; [facility] Work Phone: Comment on above: PATIENT WAS FASTINGP ERFORMED BY: MENDEZ Caceres6370 [address] RoadDublin [place] [id number] Urobilinogen (U) [Mass/Vol] 0.2 mg/dL Normal 0.2-1.0 [facility]; [facility] Work Phone: Comment on above: PATIENT WAS FASTINGP ERFORMED BY: MENDEZ Dudleylin6370 [address] RoadDublin [place] [id number] Blood Glucose , Office ([phone])Ordered By: Nancy Young on 07-11-2016 Glucose Glucometer molar conc (BldC) 119 1 Normal [facility] Work Phone: HgA1C , Office ([phone])Ordere d By: Nita Coleman on 07-11-2016 Hemoglobin A1c/Hemoglobin.total mass fraction (Bld) 5.9 % Normal 4.6 - 7.1 Comprehensiv e Internal Medicine Work Phone: Rapid Flu ([phone] x 2)Ordered By: Kim Ordonez on 04-10-2016 FLUAV Ag IA Ql (Throat) Positive Normal [facility] Work Phone: FLUAV Ag IA Ql (Throat) Positive Normal [facility]; [facility] Work Phone: Blood Glucose , Office ([phone])Ordered By: Nancy Young on 03-21-2016 Glucose Glucometer molar conc (BldC) 119 1 Normal [facility] Work Phone: HgA1C , Office ([phone])Ordere d By: Nancy Young on 03-21-2016 Hemoglobin A1c/Hemoglobin.total mass fraction (Bld) 5.7 % Normal 4.6 - 7.1 Comprehensiv e Internal Medicine Work Phone: CALCIFIDIOL (19794) VIT D 25 on 03-07-2016 25-Hydroxyvitamin D2+25-Hydroxyvitamin D3 mass conc 56.1 ng/mL Normal 30.0-100.0 [facility] Work Phone: Comment on above: Vitamin D deficiency has been defined by the [place] ofMedicine and an Endocrine Society practice guideline as alevel of serum 25-OH vitamin D less than 20 ng/mL (1,2).The Endocrine Society went on to further define vitamin Dinsufficiency as a level between 21 and 29 ng/mL (2).1. IOM ([place] of Medicine). 2010. Dietary reference intakes for calcium and D. [place]: The National Academies Press.2. Magno MF, Do [place], Jos PRATER, et al. Evaluation, treatment, and prevention of vitamin D deficiency: an Endocrine Society clinical practice guideline. JCEM. 2010; 96(5):1911-30. PATIENT WAS FASTINGP ERFORMED BY: [place] [id number] [facility] [id number] CBC W/AUTO DIFF WBC (25826)o n 03-07-2016 Basophils #/vol (Bld) 0.0 {x10E3/uL} Normal 0.0-0.2 [facility] Work Phone: Comment on above: PATIENT WAS FASTINGP ERFORMED BY: [address] [id number] Basophils Auto #/vol (Bld) 0.0 {x10E3/uL} Normal 0.0-0.2 [facility] Work Phone: Basophils/100 WBC (Bld) 0 % Normal [facility] Work Phone: Comment on above: PATIENT WAS FASTINGP ERFORMED BY: [address] [id number] Basophils/100 WBC Auto (Bld) 0 % Normal [facility] Work Phone: Eosinophils #/vol (Bld) 0.2 {x10E3/uL} Normal 0.0-0.4 [facility] Work Phone: Comment on above: PATIENT WAS FASTINGP ERFORMED BY: [place] [id number] [facility] [id number] Eosinophils Auto #/vol (Bld) 0.2 {x10E3/uL} Normal 0.0-0.4 [facility] Work Phone: Eosinophils/100 WBC (Bld) 3 % Normal [facility] Work Phone: Comment on above: PATIENT WAS FASTINGP ERFORMED BY: [place] 3332470 [facility] [id number] Eosinophils/100 WBC Auto (Bld) 3 % Normal [facility] Work Phone: Erythrocyte distribution width Auto Ratio (RBC) 14.0 % Normal 12.3-15.4 [facility] Work Phone: Erythrocyte distribution width Ratio (RBC) 14.0 % Normal 12.3-15.4 [facility] Work Phone: Comment on above: PATIENT WAS FASTINGP ERFORMED BY: [facility]6370 [facility] [id number] Hematocrit Auto Volume Fraction (Bld) 44.4 % Normal 37.5-51.[address] [facility] Internal Medicine Work Phone: Hematocrit Volume Fraction (Bld) 44.4 % Normal 37.5-51.0 [facility] Work Phone: Comment on above: PATIENT WAS FASTINGP ERFORMED BY: LabFrank Ville 2273070 [facility] [id number] Hemoglobin mass conc (Bld) 14.9 g/dL Normal 12.6-17.7 [facility] Work Phone: Comment on above: PATIENT WAS FASTINGP ERFORMED BY: [place] 3332470 [facility] [id number] Immature granulocytes #/vol (Bld) 0.0 {x10E3/uL} Normal 0.0-0.1 [facility] Work Phone: Comment on above: PATIENT WAS FASTINGP ERFORMED BY: LabCorewell [facility]6370 [facility] [id number] Immature granulocytes/100 WBC (Bld) 0 % Normal [facility] Work Phone: Comment on above: PATIENT WAS FASTINGP ERFORMED BY: LabFrank [place] 2273070 [facility] [id number] Lymphocytes #/vol (Bld) 2.1 {x10E3/uL} Normal 0.7-3.1 [facility] Work Phone: Comment on above: PATIENT WAS FASTINGP ERFORMED BY: LabFrank [place] 2273070 [facility] [id number] Lymphocytes Auto #/vol (Bld) 2.1 {x10E3/uL} Normal 0.7-3.1 [facility] Work Phone: Lymphocytes/100 WBC (Bld) 35 % Normal [facility] Work Phone: Comment on above: PATIENT WAS FASTINGP ERFORMED BY: MENDEZ [facility] HospitalGabbie DudleyRwxldn8745 [facility] [id number] Lymphocytes/100 WBC Auto (Bld) 35 % Normal [facility] Work Phone: MCH Auto Entitic mass (RBC) 27.1 pg Normal 26.6-33.0 [facility] Work Phone: MCH Entitic mass (RBC) 27.1 pg Normal 26.6-33.0 [facility] Work Phone: Comment on above: PATIENT WAS FASTINGP ERFORMED BY: MENDEZ [facility] HospitalGabbie DudleyPsvxya6453 [facility] [id number] MCHC Auto mass conc (RBC) 33.6 g/dL Normal 31.5-35.7 [facility] Work Phone: MCHC mass conc (RBC) 33.6 g/dL Normal 31.5-35.7 [facility] Work Phone: Comment on above: PATIENT WAS FASTINGP ERFORMED BY: MENDEZ LamPrmelyssa [address] [id number] MCV Auto Entitic volume (RBC) 81 fL Normal 79-97 [facility] Work Phone: MCV Entitic volume (RBC) 81 fL Normal 79-97 [facility] Work Phone: Comment on above: PATIENT WAS FASTINGP ERFORMED BY: MENDEZ [place] 6593070 [facility] [id number] Monocytes #/vol (Bld) 0.4 {x10E3/uL} Normal 0.1-0.9 [facility] Work Phone: Comment on above: PATIENT WAS FASTINGP ERFORMED BY: [place] 3332470 [facility] [id number] Monocytes Auto #/vol (Bld) 0.4 {x10E3/uL} Normal 0.1-0.9 [facility] Work Phone: Monocytes/100 WBC (Bld) 7 % Normal [facility] Work Phone: Comment on above: PATIENT WAS FASTINGP ERFORMED BY: MENDEZ [facility]oleSaint [facility] Aarsty1188 [facility] [id number] Monocytes/100 WBC Auto (Bld) 7 % Normal [facility] Work Phone: Neutrophils #/vol (Bld) 3.3 {x10E3/uL} Normal 1.4-7.0 [facility] Work Phone: Comment on above: PATIENT WAS FASTINGP ERFORMED BY: MENDEZ [facility] Vcchyf5397 [facility] [id number] Neutrophils Auto #/vol (Bld) 3.3 {x10E3/uL} Normal 1.4-7.0 [facility] Work Phone: Neutrophils/100 WBC (Bld) 55 % Normal [facility] Work Phone: Comment on above: PATIENT WAS FASTINGP ERFORMED BY: MENDEZ [facility] Qltrab2680 [facility] [id number] Neutrophils/100 WBC Auto (Bld) 55 % Normal [facility] Work Phone: Platelets #/vol (Bld) 260 {x10E3/uL} Normal 150-379 [facility] Work Phone: Comment on above: PATIENT WAS FASTINGP ERFORMED BY: [place] 3332470 [facility] [id number] Platelets Auto #/vol (Bld) 260 {x10E3/uL} Normal 150-379 [facility] Work Phone: RBC #/vol (Bld) 5.50 {x10E6/uL} Normal 4.14-5.80 [facility] Internal [facility] Work Phone: Comment on above: PATIENT WAS FASTINGP ERFORMED BY: [place] 3332470 [facility] [id number] RBC Auto #/vol (Bld) 5.50 {x10E6/uL} Normal 4.14-5.80 [facility] Work Phone: WBC #/vol (Bld) 6.0 {x10E3/uL} Normal 3.4-10.8 [facility] Internal Medicine Work Phone: Comment on above: PATIENT WAS FASTINGP ERFORMED BY: LabCoRaritan Bay Medical CenterRscagx1568 Al[address]zo RoadOnslow Memorial Hospitalin [place] [id number] WBC Auto #/vol (Bld) 6.0 {x10E3/uL} Normal 3.4-10.8 [facility] Internal Medicine Work Phone: CBC W/AUTO DIFF WBC ([id number])O rdered By: Dry Cleaner Apprentice on 03-07-2016 Basophils (Bld) [#/Vol] 0.0 10*3/uL Normal 0.0-0.2 [facility]; [facility] Internal Medicine Work Phone: Comment on above: PATIENT WAS FASTINGP ERFORMED BY: LabFrank Ville 2273070 [facility] [id number] Eosinophils (Bld) [#/Vol] 0.2 10*3/uL Normal 0.0-0.4 [facility]; [facility] Work Phone: Comment on above: PATIENT WAS FASTINGP ERFORMED BY: LabCoRaritan Bay Medical CenterWsasog24[address] [facility] [id number] Immature granulocytes (Bld) [#/Vol] 0.0 10*3/uL Normal 0.0-0.1 [facility]; [facility] Work Phone: Comment on above: PATIENT WAS FASTINGP ERFORMED BY: [facility] Zbypow7694 [address] [facility] [id number] Lymphocytes (Bld) [#/Vol] 2.1 10*3/uL Normal 0.7-3.1 [facility] Internal Medicine; [facility] Internal Medicine Work Phone: Comment on above: PATIENT WAS FASTINGP ERFORMED BY: [facility] Zzvgop4784 [address] [facility] [id number] Monocytes (Bld) [#/Vol] 0.4 10*3/uL Normal 0.1-0.9 [facility]; [facility] Work Phone: Comment on above: PATIENT WAS FASTINGP ERFORMED BY: MENDEZ CaroleGabbie Lnffdc2732 [address] [facility] [id number] Neutrophils (Bld) [#/Vol] 3.3 10*3/uL Normal 1.4-7.0 [facility]; [facility] Work Phone: Comment on above: PATIENT WAS FASTINGP ERFORMED BY: MENDEZ LabGabbie Uezyki1652 [address] [facility] [id number] Platelets (Bld) [#/Vol] 260 10*3/uL Normal 150-379 [facility]; [facility] Work Phone: Comment on above: PATIENT WAS FASTINGP ERFORMED BY: MENDEZ LabGabbie Khbopo7327 [address] [facility] [id number] RBC (Bld) [#/Vol] 5.50 10*6/uL Normal 4.14-5.80 Compr ehensive Internal Medicine; [facility] Work Phone: Comment on above: PATIENT WAS FASTINGP ERFORMED BY: MENDEZ LabGabbie Dcthdj9314 [address] [facility] [id number] WBC (Bld) [#/Vol] 6.0 10*3/uL Normal 3.4-10.8 Compre [facility]; [facility] Work Phone: Comment on above: PATIENT WAS FASTINGP ERFORMED BY: MENDEZ LabGabbie DudleyUnhhmm6787 [facility] [id number] LIPID PANEL (96807)on 2016 Cholesterol in HDL mass conc 43 mg/dL Normal [facility] Work Phone: Comment on above: PATIENT WAS FASTINGP ERFORMED BY: MENDEZ LabGabbie DudleyQdkifk9518 [address] [facility] [id number]; non-emergent till apt Cholesterol in LDL mass conc 156 mg/dL Abnormal 0-99 [facility] Work Phone: Comment on above: PATIENT WAS FASTINGP ERFORMED BY: MENDEZ LabGabbie Pgdflo0705 [address] [facility] [id number]; non-emergent till apt Cholesterol in LDL/Cholesterol in HDL mass ratio 3.6 {ratio_units} Normal 0.0-3.6 [facility] Work Phone: Comment on above: LDL/HDL Ratio Men Wo men 1/2 Avg.Risk 1.0 1.5 Avg.Risk 3.6 3.2 2X Avg.Risk 6.2 5.0 3X Avg.Risk 8.0 6.1 PATIENT WAS FASTINGP ERFORMED BY: MENDEZ [facility] Kdcyll2087 [address] [facility] [id number]; non-emergent till apt Cholesterol in VLDL mass conc 29 mg/dL Normal 5-40 [facility] Work Phone: Comment on above: PATIENT WAS FASTINGP ERFORMED BY: MENDEZ LabComelyssa Cicnuy9273 [facility] [id number]; non-emergent till apt Cholesterol mass conc 228 mg/dL Abnormal 100-199 [facility] prehensive Internal Medicine Work Phone: Comment on above: PATIENT WAS FASTINGP ERFORMED BY: MENDEZ [facility] Rbmnax6743 [address] [facility] [id number]; non-emergent till apt Triglyceride mass conc 144 mg/dL Normal 0-149 [facility] Work Phone: Comment on above: PATIENT WAS FASTINGP ERFORMED BY: MENDEZ [facility] Gikyav2204 [facility] [id number]; non-emergent till apt METABOLIC PANEL, COMPREHENSI VE (51620)on 03-07-2016 Albumin mass conc 4.5 g/dL Normal 3.5-5.5 Compreh ensive Internal Medicine Work Phone: Comment on above: PATIENT WAS FASTINGP ERFORMED BY: MENDEZ [facility] Ynniiv4710 [facility] [id number] Albumin/Globulin mass ratio 1.7 {ratio} Normal 1.1-2.5 [facility] Work Phone: Comment on above: PATIENT WAS FASTINGP ERFORMED BY: MENDEZ [facility] Izelqy5326 [address] RoadDublin [place] [id number] ALP enzyme act/vol 55 [iU]/L Normal 39-117 Compre [facility] Internal Medicine Work Phone: Comment on above: PATIENT WAS FASTINGP ERFORMED BY: CB [facility] Wmuvvc1813 [address] RoadDublin [place] [id number] ALT enzyme act/vol 20 [iU]/L Normal 0-44 Compre [facility] Internal Medicine Work Phone: Comment on above: PATIENT WAS FASTINGP ERFORMED BY: CB [facility] Gsyomw1913 [address] RoadDublin [place] [id number] AST enzyme act/vol 19 [iU]/L Normal 0-40 [facility] Work Phone: Comment on above: PATIENT WAS FASTINGP ERFORMED BY: [facility] Fbbjea8288 [address] RoadDublin [place] [id number] Bilirubin mass conc 0.6 mg/dL Normal 0.0-1.2 Compr ensive Internal Medicine Work Phone: Comment on above: PATIENT WAS FASTINGP ERFORMED BY: [facility] Mgkmlb9949 [address] RoadDublin [place] [id number] Calcium mass conc 9.6 mg/dL Normal 8.7-10.2 Compreh [facility]ive Internal Medicine Work Phone: Comment on above: PATIENT WAS FASTINGP ERFORMED BY: [facility] Emolve9095 [address] RoadDublin [place] [id number] Chloride molar conc 99 mmol/L Normal 96-106 Compr ensive Internal Medicine Work Phone: Comment on above: PATIENT WAS FASTINGP ERFORMED BY: [facility] Affjbg2359 [address] RoadDublin [place] [id number] CO2 molar conc 24 mmol/L Normal 18-29 Comprehens tyron Internal Medicine Work Phone: Comment on above: PATIENT WAS FASTINGP ERFORMED BY: CB [facility] Fsizvt0835 Al[address]zo RoadDublin [place] [id number] Creatinine mass conc 0.86 mg/dL Normal 0.76-1.27 Comp [facility] centerensive Internal Medicine Work Phone: Comment on above: PATIENT WAS FASTINGP ERFORMED BY: MENDEZ LabCo Ayjkam1852 [address] [facility] [id number] GFR/1.73 sq M predicted among blacks CKD-EPI vol rate/area (S/P/Bld) 119 mL/min/1.73 Normal Comprehensiv e Internal Medicine Work Phone: Comment on above: PATIENT WAS FASTINGP ERFORMED BY: MENDEZ [facility] Bfpath0203 [facility] [id number] GFR/1.73 sq M predicted among non-blacks CKD-EPI vol rate/area (S/P/Bld) 103 mL/min/1.73 Normal [facility] Work Phone: Comment on above: PATIENT WAS FASTINGP ERFORMED BY: MENDEZ Dudleylin6370 [facility] [id number] Globulin Calculated mass conc (S) 2.6 g/dL Normal 1.5-4.5 [facility] Work Phone: Globulin mass conc (S) 2.6 g/dL Normal 1.5-4.5 [facility] Work Phone: Comment on above: PATIENT WAS FASTINGP ERFORMED BY: MENDEZ Dudleylin6370 [facility] [id number] Glucose mass conc 105 mg/dL Abnormal 65-99 Compreh ensive Internal Medicine Work Phone: Comment on above: PATIENT WAS FASTINGP ERFORMED BY: MENDEZ LabBrittany Sknkql6667 [facility] [id number] Potassium molar conc 4.7 mmol/L Normal 3.5-5.2 Comp rehensive Internal Medicine Work Phone: Comment on above: PATIENT WAS FASTINGP ERFORMED BY: MENDEZ LabComelyssa DudleyAhdklq4454 [facility] [id number] Protein mass conc 7.1 g/dL Normal 6.0-8.5 Compreh ensive Internal Medicine Work Phone: Comment on above: PATIENT WAS FASTINGP ERFORMED BY: MENDEZ [facility]Co Rtogpj1648 [facility] [id number] Sodium molar conc 142 mmol/L Normal 134-144 Compreh ensive Internal Medicine Work Phone: Comment on above: PATIENT WAS FASTINGP ERFORMED BY: MENDEZ CaroleGabbie DudleyDzpban6673 [facility] [id number] Urea nitrogen mass conc 13 mg/dL Normal 6-24 [facility] Work Phone: Comment on above: PATIENT WAS FASTINGP ERFORMED BY: MENDEZ Dudleylin6370 [facility] [id number] Urea nitrogen/Creatinine mass ratio 15 mg/mg Normal 9-20 [facility] Work Phone: Comment on above: PATIENT WAS FASTINGP ERFORMED BY: MENDEZ Dudleylin6370 [facility] [id number] METABOLIC PANEL, COMPREHENSI VE ([id number])Ordered By: Dry Cleaner Apprentice on 03-07-2016 ALP [Catalytic activity/Vol] 55 U/L Normal 39-117 [facility]; [facility] Work Phone: Comment on above: PATIENT WAS FASTINGP ERFORMED BY: MENDEZ Dudleylin6370 [facility] [id number] ALT [Catalytic activity/Vol] 20 U/L Normal 0-44 [facility]; [facility] Work Phone: Comment on above: PATIENT WAS FASTINGP ERFORMED BY: MENDEZ Dudleylin6370 [facility] [id number] AST [Catalytic activity/Vol] 19 U/L Normal 0-40 [facility]; [facility] Work Phone: Comment on above: PATIENT WAS FASTINGP ERFORMED BY: MENDEZ LabGabbie DudleyZiwaik1853 [facility] [id number] MICROALBUMINOrdered By: Syst em Chief Innovation Officer on 03-07-2016 Albumin DL <= 20 mg/L (U) [Mass/Vol] mg/dL Normal [facility]; [facility] Work Phone: Comment on above: PATIENT WAS FASTINGP ERFORMED BY: MENDEZ LabGabbie DudleyCalrue9402 [facility] [id number] MICROALBUMINon 03-07-2016 Albumin DL <= 20 mg/L mass conc (U) mg/dL Normal [facility] Work Phone: Comment on above: PATIENT WAS FASTINGP ERFORMED BY: MENDEZ [facility] Fbfqfh0807 [facility] [place] [id number] Albumin/Creatinine mass ratio (U) <1.9 Normal 0.0-30.0 [facility] Work Phone: Comment on above: PATIENT WAS FASTINGP ERFORMED BY: MENDEZ [facility] Xnwoyf3279 [facility] [id number] Creatinine mass conc (U) 156.6 mg/dL Normal [facility] Work Phone: Comment on above: PATIENT WAS FASTINGP ERFORMED BY: MENDEZ [facility] HospitalGabbie DudleyTjgxuj4027 [facility] [id number] Microscopic Examinationon Bacteria LM.HPF #/area (Urine sed) None seen Normal [facility] Work Phone: Comment on above: PATIENT WAS FASTINGP ERFORMED BY: MENDEZ [facility] Zmgsas5126 [facility] [place] [id number] Epithelial cells LM.HPF #/area (Urine sed) None seen Normal 0 - 10 [facility] Work Phone: Comment on above: PATIENT WAS FASTINGP ERFORMED BY: MENDEZ LabSaint [facility] Lanrkl8533 [facility] [place] [id number] Mucus LM Ql (Urine sed) Present Normal [facility] Work Phone: Mucus Ql (Urine sed) Present Normal Comp rehensive Internal Medicine Work Phone: Comment on above: PATIENT WAS FASTINGP ERFORMED BY: [facility] Lqvrzj5037 [facility]in [place] [id number] RBC LM.HPF #/area (Urine sed) 0-2 Normal 0 - 2 [facility] Work Phone: Comment on above: PATIENT WAS FASTINGP ERFORMED BY: LabCo Tznfpv2884 [facility] [id number] WBC LM.HPF #/area (Urine sed) 0-5 Normal 0 - 5 [facility] Work Phone: Comment on above: PATIENT WAS FASTINGP ERFORMED BY: MENDEZ LabGabbie Caceres6370 [address] RoadDublin [place] [id number] URINALYSIS, W/ MICRO ([id number]) on 03-07-2016 Appearance Nom (U) Clear Normal Compre hensive Internal Medicine Work Phone: Comment on above: PATIENT WAS FASTINGP ERFORMED BY: MENDEZ LabGabbie DduleyKdwowj2607 [address] RoadDublin [place] [id number] Bilirubin Ql (U) Negative Normal Comprehe nsive Internal Medicine Work Phone: Comment on above: PATIENT WAS FASTINGP ERFORMED BY: MENDEZ Dudleylin6370 [address]low [facility] Hospitalin [place] [id number] Color Nom (U) Yellow Normal Comprehensi ve Internal Medicine Work Phone: Comment on above: PATIENT WAS FASTINGP ERFORMED BY: MENDEZ Dudleylin6370 [address] RoadOnslow [facility] Hospitalin [place] [id number] Glucose Ql (U) Negative Normal Comprehens tyron Internal Medicine Work Phone: Comment on above: PATIENT WAS FASTINGP ERFORMED BY: MENDEZ Dudleylin6370 [address] RoadDuin [place] [id number] Hemoglobin Ql (U) Negative Normal Compreh ensive Internal Medicine Work Phone: Comment on above: PATIENT WAS FASTINGP ERFORMED BY: MENDEZ Dudleylin6370 [address] RoadOnslow [facility] Hospitalin [place] [id number] Hemoglobin Test strip Ql (U) Negative Normal [facility] Work Phone: Ketones Ql (U) Negative Normal Comprehens tyron [facility] Work Phone: Comment on above: PATIENT WAS FASTINGP ERFORMED BY: MENDEZ LabGabbie DudleyAvvtoc4379 [address] RoadDublin [place] [id number] Leukocyte esterase Test strip Ql (U) Negative Normal [facility] Work Phone: Comment on above: PATIENT WAS FASTINGP ERFORMED BY: MENDEZ Leerp Pmyzno9316 [address] RoadDublin [place] [id number] Microscopic observation LM Nom (Urine sed) See below: Normal [facility] Work Phone: Comment on above: Microscopic was giovanni cated and was performed. PATIENT WAS FASTINGP ERFORMED BY: MENDEZ LabComelyssa DudleyUnnwzo9339 [address] RoadDublin [place] [id number] Microscopic observation LM Nom (Urine sed) MICRON Normal [facility] Work Phone: Comment on above: Microscopic follows if indicated. PATIENT WAS FASTINGP ERFORMED BY: MENDEZ LabComelyssa DudleyHqxhhd1958 [address] RoadDublin [place] [id number] Nitrite Ql (U) Negative Normal Comprehens tyron [facility] Work Phone: Comment on above: PATIENT WAS FASTINGP ERFORMED BY: MENDEZ Dudleylin6370 [address] RoadDublin [place] [id number] Nitrite Test strip Ql (U) Negative Normal [facility] Work Phone: pH (U) 6.0 [pH] Normal 5.0-7.5 [facility] Work Phone: Comment on above: PATIENT WAS FASTINGP ERFORMED BY: MENDEZ Caceres6370 [address] RoadDublin [place] [id number] pH Test strip (U) 6.0 [pH] Normal 5.0-7.5 Compreh ensive Internal Medicine Work Phone: Protein Ql (U) Negative Normal Comprehens tyron [facility] Work Phone: Comment on above: PATIENT WAS FASTINGP ERFORMED BY: MENDEZ LabComelyssa DudleyKxjajc6403 [address] RoadDublin [place] [id number] Protein Test strip Ql (U) Negative Normal [facility] Work Phone: Specific gravity Relative Density (U) 1.021 1 Normal 1.005-1.03 0 [facility] Work Phone: Comment on above: PATIENT WAS FASTINGP ERFORMED BY: MENDEZ LabComelyssa DudleyNtlago2715 [address] RoadDublin [place] [id number] Urobilinogen Test strip mass conc (U) 0.2 mg/dL Normal 0.2-1.0 Comprehensiv e Internal Medicine Work Phone: Comment on above: PATIENT WAS FASTINGP ERFORMED BY: MENDEZ LabGabbie DudleyHtwmec2301 [address] RoadDublin [place] [id number] URINALYSIS, W/ MICRO ([id number]) Ordered By: Dry Cleaner Apprentice on 03-07-2016 Bilirubin Ql (U) Negative Normal Comprehe nsive Internal Medicine; [facility] Work Phone: Comment on above: PATIENT WAS FASTINGP ERFORMED BY: MENDEZ LabGabbie DudleyMkgylz0903 [address] RoadDublin [place] [id number] Glucose Ql (U) Negative Normal Comprehens tyron [facility]; [facility] Work Phone: Comment on above: PATIENT WAS FASTINGP ERFORMED BY: MENDEZ LabGabbie DudleyBeskjr0192 [address] RoadDublin [place] [id number] Hemoglobin Ql (U) Negative Normal Compreh ensive Internal Medicine; [facility] Work Phone: Comment on above: PATIENT WAS FASTINGP ERFORMED BY: MENDEZ LabGabbie DudleyHfbsgv5402 [address] RoadDublin [place] [id number] Ketones Ql (U) Negative Normal Comprehens tyron [facility]; [facility] Work Phone: Comment on above: PATIENT WAS FASTINGP ERFORMED BY: MENDEZ LabGabbie DudleyHhsnag3212 [address] RoadDublin [place] [id number] Leukocyte esterase Test strip Ql (U) Negative Normal [facility]; [facility] Work Phone: Comment on above: PATIENT WAS FASTINGP ERFORMED BY: MENDEZ LabGabbie DudleyEmcxpj3509 [address] RoadDublin [place] [id number] Nitrite Ql (U) Negative Normal Comprehens tyron [facility]; [facility] Work Phone: Comment on above: PATIENT WAS FASTINGP ERFORMED BY: MENDEZ LabComelyssa DudleyHcdzds3519 [address] RoadDublin [place] [id number] Protein Ql (U) Negative Normal Comprehens tyron [facility]; [facility] Work Phone: Comment on above: PATIENT WAS FASTINGP ERFORMED BY: CB [facility] Izustw3012 [address] RoadDublin [place] [id number] Urobilinogen (U) [Mass/Vol] 0.2 mg/dL Normal 0.2-1.0 [facility]; [facility] Work Phone: Comment on above: PATIENT WAS FASTINGP ERFORMED BY: CB [facility] Pfkjpt1750 [address]blin [place] [id number] HgA1C , Office ([id number])Ordere d By: Marva Wang on 12-14-2015 Hemoglobin A1c/Hemoglobin.total mass fraction (Bld) 6.1 % Normal 4.6 - 7.1 Comprehensiv e Internal Medicine Work Phone: HEPATIC FUNCTION PANEL (8000 6)on 11-30-2015 Albumin mass conc 4.5 g/dL Normal 3.5-5.5 Compreh ensive Internal Medicine Work Phone: Comment on above: PATIENT WAS FASTINGP ERFORMED BY: CB [facility] Ygfttq9259 [address] RoadOnslow Memorial Hospitalin [place] [id number] ALP enzyme act/vol 54 [iU]/L Normal 39-117 Compre [facility] Internal Medicine Work Phone: Comment on above: PATIENT WAS FASTINGP ERFORMED BY: CB [facility] Bjrooi7508 [address] RoadDublin [place] [id number] ALT enzyme act/vol 25 [iU]/L Normal 0-44 Compre [facility] Internal Medicine Work Phone: Comment on above: PATIENT WAS FASTINGP ERFORMED BY: CB [facility] Ulrwcq8172 [address] RoadDublin [place] [id number] AST enzyme act/vol 21 [iU]/L Normal 0-40 Compre [facility] Internal Medicine Work Phone: Comment on above: PATIENT WAS FASTINGP ERFORMED BY: CB [facility] Vwiehl1586 [address] RoadDublin [place] [id number] Bilirubin mass conc 0.4 mg/dL Normal 0.0-1.2 Compr ehensive Internal Medicine Work Phone: Comment on above: PATIENT WAS FASTINGP ERFORMED BY: MENDEZ [facility] Diymbu3327 [address] RoadDublin [place] [id number] Bilirubin.direct mass conc 0.14 mg/dL Normal 0.00-0.40 [facility] Work Phone: Comment on above: PATIENT WAS FASTINGP ERFORMED BY: MENDEZ [facility] Ympbbs0953 [address] RoadDublin [place] [id number] Protein mass conc 7.3 g/dL Normal 6.0-8.5 Compreh ensive Internal Medicine Work Phone: Comment on above: PATIENT WAS FASTINGP ERFORMED BY: [facility] Dhejxq2664 [address] RoadDublin [place] [id number] HEPATIC FUNCTION PANEL (5761 6)Ordered By: Dry Cleaner Apprentice on 11-30-2015 ALP [Catalytic activity/Vol] 54 U/L Normal 39-117 [facility]; [facility] Work Phone: Comment on above: PATIENT WAS FASTINGP ERFORMED BY: [facility] Copbxr1090 [address] RoadDublin [place] [id number] ALT [Catalytic activity/Vol] 25 U/L Normal 0-44 [facility]; [facility] Work Phone: Comment on above: PATIENT WAS FASTINGP ERFORMED BY: MENDEZ [facility] Xjcfey1667 [address] RoadDublin [place] [id number] AST [Catalytic activity/Vol] 21 U/L Normal 0-40 [facility]; [facility] Work Phone: Comment on above: PATIENT WAS FASTINGP ERFORMED BY: [facility] Amqwhc7208 [address] [facility]bl[facility] [place] [id number] LIPID PANEL (28016)on 2015 Cholesterol in HDL mass conc 34 mg/dL Abnormal [facility] Work Phone: Comment on above: According to ATP-III Guidelines, HDL-C >59 mg/dL is considered anegative risk factor for CHD. PATIENT WAS FASTINGP ERFORMED BY: CB [facility] Xffhwk0631 [address] RoadDublin [place] [id number] Cholesterol in LDL mass conc 139 mg/dL Abnormal 0-99 [facility] Work Phone: Comment on above: PATIENT WAS FASTINGP ERFORMED BY: MENDEZ ascentify6370 [address] On Demand TherapeuticsAt[facility] Health [facility] [id number] Cholesterol in LDL/Cholesterol in HDL mass ratio 4.1 {ratio_units} Abnormal 0.0-3.6 [facility] Work Phone: Comment on above: LDL/HDL Ratio Men Wo men 1/2 Avg.Risk 1.0 1.5 Avg.Risk 3.6 3.2 2X Avg.Risk 6.2 5.0 3X Avg.Risk 8.0 6.1 PATIENT WAS FASTINGP ERFORMED BY: MENDEZ Checkr70 [facility] QuadAt[facility] [id number] Cholesterol in VLDL mass conc 41 mg/dL Abnormal 5-40 [facility] Work Phone: Comment on above: PATIENT WAS FASTINGP ERFORMED BY: EMNDEZ Checkr70 [address] On Demand TherapeuticsAtrium Health [facility] [id number] Cholesterol mass conc 214 mg/dL Abnormal 100-199 [facility] prehensive Internal Medicine Work Phone: Comment on above: PATIENT WAS FASTINGP ERFORMED BY: RetiDiag6370 [address] On Demand TherapeuticsAtrium Health [facility] [id number] Triglyceride mass conc 204 mg/dL Abnormal 0-149 [facility] Work Phone: Comment on above: PATIENT WAS FASTINGP ERFORMED BY: GetNinjas70 [address] On Demand TherapeuticsAtrium Health [facility] [id number] PSA (PROSTATE SPECIFIC ANTIG EN) (V76.44)on 11-30-2015 Prostate specific Ag mass conc 0.4 ng/mL Normal 0.0-4.0 [facility] Work Phone: Comment on above: Bradly ECLIA methodol ogy. .According to the [place] [employer], Serum PSA shoulddecrease and remain [...] malignant disease. PATIENT WAS FASTINGP ERFORMED BY: GetNinjas70 [employer] [place] [id number] CALCIFEDIOL (29209)on 2015 25-Hydroxyvitamin D2+25-Hydroxyvitamin D3 mass conc 27.8 ng/mL Abnormal 30.0-100.0 [facility] Work Phone: Comment on above: Vitamin D deficiency has been defined by the [place] ofMedicine and an Endocrine Society practice guideline as alevel of serum 25-OH vitamin D less than 20 ng/mL (1,2).The Endocrine Society went on to further define vitamin Dinsufficiency as a level between 21 and 29 ng/mL (2).1. IOM ([place] of Medicine). 2010. Dietary reference intakes for calcium and D. [place]: The National Academies Press.2. Magno MF, Do [place], Jos PRATER, et al. Evaluation, treatment, and prevention of vitamin D deficiency: an Endocrine Society clinical practice guideline. JCEM. 2010; 96(7):1911-30. PATIENT WAS FASTINGP ERFORMED BY: GetNinjas70 vocaltapAtrium Health Waxhaw [id number] LIPID PANEL (60098)on 2015 Cholesterol in HDL mass conc 43 mg/dL Normal [facility] Work Phone: Comment on above: According to ATP-III Guidelines, HDL-C >59 mg/dL is considered anegative risk factor for CHD. PATIENT WAS FASTINGP ERFORMED BY: RetiDiag6370 vocaltapAtrium Health Waxhaw [id number] Cholesterol in LDL mass conc 166 mg/dL Abnormal 0-99 [facility] Work Phone: Comment on above: PATIENT WAS FASTINGP ERFORMED BY: RetiDiag6370 DLSAtrium Health Mercy [id number] Cholesterol in LDL/Cholesterol in HDL mass ratio 3.9 {ratio_units} Abnormal 0.0-3.6 [facility] Work Phone: Comment on above: LDL/HDL Ratio Men Wo men 1/2 Avg.Risk 1.0 1.5 Avg.Risk 3.6 3.2 2X Avg.Risk 6.2 5.0 3X Avg.Risk 8.0 6.1 PATIENT WAS FASTINGP ERFORMED BY: MENDEZ Dudleylin6370 [facility] [id number] Cholesterol in VLDL mass conc 35 mg/dL Normal 5-40 [facility] Work Phone: Comment on above: PATIENT WAS FASTINGP ERFORMED BY: MENDEZ Dudleylin6370 [facility] [id number] Cholesterol mass conc 244 mg/dL Abnormal 100-199 Com prehensive Internal Medicine Work Phone: Comment on above: PATIENT WAS FASTINGP ERFORMED BY: MENDEZ Dudleylin6370 [facility] [id number] Triglyceride mass conc 174 mg/dL Abnormal 0-149 [facility] Work Phone: Comment on above: PATIENT WAS FASTINGP ERFORMED BY: MENDEZ Dudleylin6370 [facility] [id number] METABOLIC PANEL, COMPREHENSI VE (79552)on 09-14-2015 Albumin mass conc 4.7 g/dL Normal 3.5-5.5 Compreh ensive Internal Medicine Work Phone: Comment on above: PATIENT WAS FASTINGP ERFORMED BY: MENDEZ Dudleylin6370 [facility] [id number] Information: [id number] Albumin/Globulin mass ratio 1.5 {ratio} Normal 1.1-2.5 [facility] Work Phone: Comment on above: PATIENT WAS FASTINGP ERFORMED BY: MENDEZ Dudleylin6370 [facility] [id number] Information: [id number] ALP enzyme act/vol 66 [iU]/L Normal 39-117 Compre [facility] Work Phone: Comment on above: PATIENT WAS FASTINGP ERFORMED BY: MENDEZ Dudleylin6370 [facility] [id number] Information: [id number] ALT enzyme act/vol 153 [iU]/L Abnormal 0-44 Compre [facility] Internal Medicine Work Phone: Comment on above: PATIENT WAS FASTINGP ERFORMED BY: MENDEZ LabCoRaritan Bay Medical CenterPwsqfd6232 [address] [facility]in [place] [id number] Information: [id number] AST enzyme act/vol 87 [iU]/L Abnormal 0-40 Compre [facility] Internal Medicine Work Phone: Comment on above: PATIENT WAS FASTINGP ERFORMED BY: LabCoMaria Ville 9952870 [facility] [id number] Information: [id number] Bilirubin mass conc 0.9 mg/dL Normal 0.0-1.2 Compr ensive Internal Medicine Work Phone: Comment on above: PATIENT WAS FASTINGP ERFORMED BY: [place] 3332470 [facility] [id number] Information: [id number] Calcium mass conc 9.6 mg/dL Normal 8.7-10.2 Compreh [facility] healthcareive Internal Medicine Work Phone: Comment on above: PATIENT WAS FASTINGP ERFORMED BY: LabCorewell [facility] Hospital6370 [facility] [id number] Information: [id number] Chloride molar conc 96 mmol/L Abnormal 97-108 Compr ensive Internal Medicine Work Phone: Comment on above: PATIENT WAS FASTINGP ERFORMED BY: LabCorewell Health Butter[facility] Hospital6370 [facility] [id number] Information: [id number] CO2 molar conc 19 mmol/L Normal 18-29 [facility]pre[facility] Work Phone: Comment on above: PATIENT WAS FASTINGP ERFORMED BY: LabCorewell Health [facility] Hospital6370 [facility] [id number] Information: [id number] Creatinine mass conc 0.78 mg/dL Normal 0.76-1.27 Comp [facility] centerensive Internal Medicine Work Phone: Comment on above: PATIENT WAS FASTINGP ERFORMED BY: MENDEZ CaroleCo Rzcleh7544 [facility] [id number] Information: [id number] GFR/1.73 sq M predicted among blacks CKD-EPI vol rate/area (S/P/Bld) 124 mL/min/1.73 Normal Comprehensiv e Internal Medicine Work Phone: Comment on above: PATIENT WAS FASTINGP ERFORMED BY: MENDEZ [facility] Fofkbt9667 [facility] [id number] Information: [id number] GFR/1.73 sq M predicted among non-blacks CKD-EPI vol rate/area (S/P/Bld) 107 mL/min/1.73 Normal [facility] Work Phone: Comment on above: PATIENT WAS FASTINGP ERFORMED BY: MENDEZ [facility] Ychimg0628 [facility] [id number] Information: [id number] Globulin Calculated mass conc (S) 3.2 g/dL Normal 1.5-4.5 [facility] Work Phone: Globulin mass conc (S) 3.2 g/dL Normal 1.5-4.5 [facility] Work Phone: Comment on above: PATIENT WAS FASTINGP ERFORMED BY: MENDEZ [facility] Lgflyn4483 [facility] [id number] Information: [id number] Glucose mass conc 134 mg/dL Abnormal 65-99 Compreh ensive Internal Medicine Work Phone: Comment on above: PATIENT WAS FASTINGP ERFORMED BY: MENDEZ LabCorewell Health [facility] Hospital6370 [facility] [id number] Information: [id number] Potassium molar conc 4.4 mmol/L Normal 3.5-5.2 Comp rehensive Internal Medicine Work Phone: Comment on above: PATIENT WAS FASTINGP ERFORMED BY: MENDEZ [facility]6370 [facility] Hospitalin [place] [id number] Information: [id number] Protein mass conc 7.9 g/dL Normal 6.0-8.5 Compreh ensive Internal Medicine Work Phone: Comment on above: PATIENT WAS FASTINGP ERFORMED BY: MENDEZ [facility] Rygjkb0448 [address] [facility] [id number] Information: [id number] Sodium molar conc 138 mmol/L Normal 134-144 Compreh ensive Internal Medicine Work Phone: Comment on above: PATIENT WAS FASTINGP ERFORMED BY: [facility] Nuhvyb8979 [address] [facility] [id number] Information: [id number] Urea nitrogen mass conc 13 mg/dL Normal 6-24 [facility] Work Phone: Comment on above: PATIENT WAS FASTINGP ERFORMED BY: [facility] Hsxroo1649 [address] [facility] [id number] Information: [id number],[id number] Urea nitrogen/Creatinine mass ratio 17 mg/mg Normal 9-20 [facility] Work Phone: Comment on above: PATIENT WAS FASTINGP ERFORMED BY: LabSaint [facility] Jwjnpg2999 [facility] [id number] Information: [id number] METABOLIC PANEL, COMPREHENSI VE (39779)Ordered By: Dry Cleaner Apprentice on 09-14-2015 ALP [Catalytic activity/Vol] 66 U/L Normal 39-117 [facility]; [facility] Work Phone: Comment on above: PATIENT WAS FASTINGP ERFORMED BY: [facility] Ffqzsw4530 [address] [facility]in [place] [id number] Information: [id number] ALT [Catalytic activity/Vol] 153 U/L Abnormal 0-44 [facility]; [facility] Work Phone: Comment on above: PATIENT WAS FASTINGP ERFORMED BY: [facility] Jerywy5382 [address] [facility]in [place] [id number] Information: [id number] AST [Catalytic activity/Vol] 87 U/L Abnormal 0-40 [facility]; [facility] Work Phone: Comment on above: PATIENT WAS FASTINGP ERFORMED BY: [facility]6370 [facility] [id number] Information: [id number] MICROALBUMINon 09-14-2015 Albumin DL <= 20 mg/L mass conc (U) 5.7 ug/mL Normal [facility] Work Phone: Comment on above: PATIENT WAS FASTINGP ERFORMED BY: [place] [id number] [facility] [id number] Albumin/Creatinine mass ratio (U) 3.9 {mg/g_creat} Normal 0.0-30.0 [facility] Work Phone: Comment on above: PATIENT WAS FASTINGP ERFORMED BY: [place] [id number] [facility] [id number] Creatinine mass conc (U) 146.9 mg/dL Normal [facility] Work Phone: Comment on above: PATIENT WAS FASTINGP ERFORMED BY: [facility]6370 [facility] [id number] TSH (THYROID STIMULATING HOR BRYN) ([id number])on 09-14-2015 Thyrotropin Qn 1.770 {uIU/mL} Normal 0.450-4.50 0 [facility] Work Phone: Comment on above: PATIENT WAS FASTINGP ERFORMED BY: [facility]6370 [facility] [id number] Basic Metabolic Profile (BMP )on 09-08-2015 Basic metabolic 2000 panel 100 mmol/L Normal 98-107 [facility] Work Phone: Comment on above: [facility] [address] [place], [address] Basic metabolic 2000 panel 82 mL/min Normal [facility] Work Phone: Comment on above: GFR Calc [facility] [address] [place], [address] Basic metabolic 2000 panel 68 mL/min Normal [facility] Work Phone: Comment on above: Non- GFR Calc [facility] [address] [place], [place], [address] Basic metabolic 2000 panel 1.22 mg/dL Normal 0.70-1.30 [facility] Work Phone: Comment on above: The validity of the calculated GFR AND GFRAA in patients over70 years has not been determined. Clinical correlation isessential. [facility] [address] [place], [place], [id number] Basic metabolic 2000 panel 74.85 ml/min Normal [facility] Work Phone: Comment on above: [facility] [address] [facility] [address] Basic metabolic 2000 panel 15 mg/dL Normal 7-18 [facility] Work Phone: Comment on above: [facility] [address] [place], [place], [id number] Basic metabolic 2000 panel 4.1 mmol/L Normal 3.5-5.1 [facility] Work Phone: Comment on above: Moderate Hemolysis, Result may be falsely increased. [facility] [address] [place], [place], [address] Basic metabolic 2000 panel 242 mg/dL Abnormal 70-110 [facility] Work Phone: Comment on above: Glucose result great er than or equal to 200 mg/dLsuggests DIABETES MELLITUS per A.D.A. criteria. [facility] [address] [place], [place], [id number] Basic metabolic 2000 panel 134 mmol/L Abnormal 136-145 [facility] Work Phone: Comment on above: [facility] [address] [facility] [id number] Basic metabolic 2000 panel 9.0 mg/dL Normal 8.5-10.1 [facility] Work Phone: Comment on above: [facility] [address] [place], [place], [id number] Basic metabolic 2000 panel 7 1 Normal 5-15 [facility] Work Phone: Comment on above: [facility] [address] [place], [place], [id number] Basic metabolic 2000 panel 12.3 {RATIO} Normal 10-20 [facility] Work Phone: Comment on above: [facility] [address] [place], [place], [id number] Basic metabolic 2000 panel 27.0 mmol/L Normal 21.0-32.0 [facility] Work Phone: Comment on above: [facility] [address] [place], [place], [id number] Bedside Glucoseon 09-08-2015 Bedside Glucose 214 mg/dL Abnormal 70-110 [facility]hen [facility] Work Phone: Comment on above: MANAGEMENT OF PATIEN T CARE PER NURSING PROTOCOL [facility] LaboratoryPoint of Ciiv[address] [place] [address] CBC W/Diff, Automatedon - Absolute Neut 3.0 {X10_3/uL} Normal 2.0-7.7 Compreh ensive Internal Medicine Work Phone: Comment on above: [facility] [address] [place], [address] Basophils/100 WBC (Bld) 0.2 % Normal 0-1 [facility] Work Phone: Comment on above: [facility] [address] [place], [place], [phone] Basophils/100 WBC Auto (Bld) 0.2 % Normal 0-1 [facility] Work Phone: Eosinophils/100 WBC (Bld) 1.9 % Normal 0-5 [facility] Work Phone: Comment on above: [facility] [address] [place], [address] Eosinophils/100 WBC Auto (Bld) 1.9 % Normal 0-5 [facility] Work Phone: Erythrocyte distribution width Auto Ratio (RBC) 13.2 % Normal 11.6-14.6 [facility] Work Phone: Erythrocyte distribution width Ratio (RBC) 13.2 % Normal 11.6-14.6 [facility] Work Phone: Comment on above: [place] [address] [place], [place], [id number] Hematocrit Auto Volume Fraction (Bld) 46.3 % Normal 40-54 Comprehens tyron Internal Medicine Work Phone: Hematocrit Volume Fraction (Bld) 46.3 % Normal 40-54 [facility] Work Phone: Comment on above: [place] [address] [place], [address] Hemoglobin mass conc (Bld) 16.3 g/dL Normal 13.0-16.5 [facility] Work Phone: Comment on above: [place] [address] [place], [address] IM GRAN % 0.200 % Normal 0.0-0.9 [facility] Work Phone: Comment on above: IG% - Immature Granu locytes (promyelocytes, myelocytes andmetamyelocytes) > 1% indicates that a LEFT SHIFT is Present. [place] [address] [place], [place], [phone] Lymphocytes #/vol (Bld) 2.65 {X10_3/ul} Normal 0.83-4.51 [facility] Work Phone: Comment on above: [facility] [address] [place], [address] Lymphocytes/100 WBC (Bld) 43.0 % Abnormal 19-41 [facility] Work Phone: Comment on above: [facility] [address] [place], [address] Lymphocytes/100 WBC Auto (Bld) 43.0 % Abnormal 19-41 [facility] Work Phone: MCH Auto Entitic mass (RBC) 28.7 pg Normal 27.0-32.0 [facility] Work Phone: MCH Entitic mass (RBC) 28.7 pg Normal 27.0-32.0 [facility] Work Phone: Comment on above: [facility] [address] [place], [address] MCHC Auto mass conc (RBC) 35.2 {g/gl} Normal 32-36 [facility] Work Phone: MCHC mass conc (RBC) 35.2 {g/gl} Normal 32-36 [facility] Internal Medicine Work Phone: Comment on above: [facility] [address] [place], [address] MCV Auto Entitic volume (RBC) 81.7 fL Normal 80-94 [facility] Work Phone: MCV Entitic volume (RBC) 81.7 fL Normal 80-94 [facility] Work Phone: Comment on above: [facility] [address] [place], [address] Monocytes/100 WBC (Bld) 6.2 % Normal 0-10 [facility] Work Phone: Comment on above: [facility] [address] [place], [address] Monocytes/100 WBC Auto (Bld) 6.2 % Normal 0-10 [facility] Work Phone: Neutrophils/100 WBC (Bld) 48.5 % Normal 47-70 [facility] Work Phone: Comment on above: [facility] [address] [place], [address] Neutrophils/100 WBC Auto (Bld) 48.5 % Normal 47-70 [facility] Work Phone: Platelet mean volume Auto Entitic volume (Bld) 10.2 fL Normal 6.2-12.0 [facility] Work Phone: Platelet mean volume Entitic volume (Bld) 10.2 fL Normal 6.2-12.0 Comprehensi Internal Medicine Work Phone: Comment on above: [facility] [address] [place], [address] Platelets #/vol (Bld) 222 10*3/uL Normal 150-450 [facility] Internal Medicine Work Phone: Comment on above: [facility] [address] [place], [address] Platelets Auto #/vol (Bld) 222 10*3/uL Normal 150-450 [facility] Internal Medicine Work Phone: RBC #/vol (Bld) 5.67 {M/mm3} Normal 4.6-6.2 Compreh ensive Internal Medicine Work Phone: Comment on above: [facility] [address] [place], [address] RBC Auto #/vol (Bld) 5.67 {M/mm3} Normal 4.6-6.2 [facility] Internal Medicine Work Phone: RDW SD 39.4 fL Normal 35.1-43.9 [facility] Internal Medicine Work Phone: Comment on above: [facility] [address] [place], [place], [id number] WBC #/vol (Bld) 6.2 10*3/uL Normal 4.4-11.0 Comprehe nsive Internal Medicine Work Phone: Comment on above: [facility] [address] [place], [address] WBC Auto #/vol (Bld) 6.2 10*3/uL Normal 4.4-11.0 Com prehensive Internal Medicine Work Phone: CBC W/Diff, Automated 39.4 fL Normal 35.1-43.9 Com prehensive [facility] Medicine Work Phone: CBC W/Diff, Automated 3.0 {X10_3/uL} Normal 2.0-7.7 [facility] Work Phone: CBC W/Diff, Automated 2.65 {X10_3/ul} Normal 0.83-4.51 [facility] Work Phone: CBC W/Diff, Automated 0.200 % Normal 0.0-0.9 [facility] prehensive Internal Medicine Work Phone: Comment on above: IG% - Immature Granu locytes (promyelocytes, myelocytes andmetamyelocytes) > 1% indicates that a LEFT SHIFT is Present. Hemoglobin A1con 09-08-2015 Hemoglobin A1c/Hemoglobin.total mass fraction (Bld) 11.5 % Abnormal 4.2-6.3 Comprehensiv e Internal Medicine Work Phone: Comment on above: [facility] [address] [place], [address] GAVIN DIR SEMI-QLon 02-10-2010 GAVIN [...] on 02/10/101724 by Tomi GONZALEZ Javier on 12/18/10 2157 Sign by: Shaquille Alvarado Result: NORM C+C Result: ADEQUATE ANTI-CCP [id number] 02-10-2010 ANTI-CCP 309502 2 {units} Normal 0-19 [facility] Internal Medicine Work Phone: Comment on above: Negative <20 Weak po sitive 20 - 39 Moderate positive 40 - 59 Strong positive >59Performed at: [facility] [address] [id number] Director: Barak Hill MD, Phone: [phone] C-REACTIVE PROTon 02-10-2010 CRP mass conc mg/L Normal 0.0-3.0 [facility] [...] WBC Auto (Bld) 4 % Normal 0-5 [facility] Internal Medicine Work Phone: Erythrocyte distribution width Auto Ratio (RBC) 13.8 % Normal 11.6-14.6 [facility] Internal Medicine Work Phone: Erythrocyte distribution width Ratio (RBC) 13.8 % Normal 11.6-14.6 [facility] Internal Medicine Work Phone: Hematocrit Auto Volume Fraction (Bld) 44.1 % Normal 40-[address] [facility] Internal Medicine Work Phone: Hematocrit Volume Fraction (Bld) 44.1 % Normal 40-54 [facility] Internal Medicine Work Phone: Hemoglobin mass conc (Bld) 15.4 g/dL Normal 14.0-18.0 [facility] Internal Medicine Work Phone: Lymphocytes/100 WBC (Bld) 24 % Normal 19-41 [facility] Internal Medicine Work Phone: Lymphocytes/100 WBC Auto [...] Platelets #/vol (Bld) 273 10*3/uL Normal 150-450 Co [facility] Work Phone: Platelets #/vol (Bld) SeeNote Normal Com prehensive Internal Medicine Work Phone: Comment on above: Result: ADEQUATE Platelets Auto #/vol (Bld) 273 10*3/uL Normal 150-450 [facility] Work Phone: RBC #/vol (Bld) 5.37 {M/mm3} Normal 4.6-6.2 Compreh ensive Internal Medicine Work Phone: RBC Auto #/vol (Bld) 5.37 {M/mm3} Normal 4.6-6.2 [facility] Work Phone: WBC #/vol (Bld) 7.0 10*3/uL Normal 4.4-11.0 Comprehe [facility] Internal Medicine Work Phone: WBC Auto #/vol (Bld) 7.0 10*3/uL Normal 4.4-11.0 Com prehensive Internal Medicine Work Phone: CBCD,SMEAR DIFF 100 1 Normal [facility] Work Phone: CBCD,SMEAR DIFF 70 % Normal 47-70 [facility] Internal Medicine Work Phone: COMP METABOLICon 02-10-2010 Albumin mass conc 4.2 g/dL Normal 3.4-5.0 Compreh [facility] Internal Medicine Work Phone: Albumin/Globulin mass ratio 1.1 {RATIO} Normal 0.9-2.4 [facility] Internal Medicine Work Phone: ALP enzyme act/vol 71 U/L Normal 50-136 [facility] Internal Medicine Work Phone: ALT enzyme act/vol 82 U/L Abnormal 12-78 [facility] Work Phone: Anion gap 3 molar conc 10 mmol/L Normal 5-15 [facility] Internal Medicine Work Phone: Anion gap molar conc 10 mmol/L Normal 5-15 [facility] Internal Medicine Work Phone: AST enzyme act/vol 33 U/L Normal 15-37 [facility] Internal [facility] Work Phone: Bilirubin mass conc 0.70 mg/dL Normal 0.00-1.00 [facility] Internal Medicine Work Phone: Calcium mass conc 9.2 mg/dL Normal 8.5-10.1 [facility] Internal Medicine Work Phone: Chloride molar conc 103 mmol/L Normal 98-107 [facility] Internal Medicine Work Phone: CO2 molar conc 27.0 mmol/L Normal 21.0-32.0 [facility] Internal Medicine Work Phone: Creatinine mass conc [...] Normal Comp rehensive Internal Medicine Work Phone: [facility] 02-10-2010 Thyrotropin Qn 1.63 {uIU/mL} Normal 0.358-3.74 Compreh ensive Internal Medicine Work Phone: Vital Signs Date Time Vital Sign Value Performing Clinician Facility 09-22-2024 14:00-0400 Diastolic blood pressure 93 mm[Hg] Dr. Marva Wang DO Work Phone: [facility] 09-22-2024 14:00-0400 Heart rate 79 /min Dr. Marva Wang DO Work Phone: [facility] 09-22-2024 14:00-0400 Respiratory rate 16 /min Dr. Marva Wang DO Work Phone: [facility] 09-22-2024 14:00-0400 SaO2% (BldA) [Mass fraction] 96 % Dr. Marva Wang DO Work Phone: [facility] 09-22-2024 14:00-0400 Systolic blood pressure 147 mm[Hg] Dr. Marva Wang DO Work Phone: [facility] 09-22-2024 00:00-0400 Body temperature 99 [degF] Dr. Marva Wang DO Work Phone: [facility] 09-21-2024 22:13-0400 Body height 175.[address] Marva Wang DO Work Phone: [facility] 09-21-2024 22:13-0400 Body mass index (BMI) [Ratio] 33.6 kg/m2 Dr. Marva Wang DO Work Phone: [facility] 09-21-2024 22:13-0400 Body weight 103.[address] Marva Wang DO Work Phone: [facility] 10-24-2022 08:47-0400 Body height 175.26 cm Luis Hsu [employer] [facility]; [facility] Work Phone: 10-24-2022 08:47-0400 Body mass index (BMI) [Ratio] 30 kg/m2 [facility]; [facility] Work Phone: 10-24-2022 08:47-0400 Body surface area Derived from formula 2.08 m2 [facility]; [facility] Work Phone: 10-24-2022 08:47-0400 Body temperature 96.4 [degF] [facility]; [facility] Work Phone: 10-24-2022 08:47-0400 Body weight 92.14 kg [facility]; [facility] Work Phone: 10-24-2022 08:47-0400 Diastolic blood pressure 74 mm[Hg] [facility]; [facility] Work Phone: 10-24-2022 08:47-0400 Heart rate 71 /min [facility]; [facility] Work Phone: 10-24-2022 08:47-0400 Respiratory rate 18 /min [facility]; [facility] Work Phone: 10-24-2022 08:47-0400 SaO2% (BldA) [Mass fraction] 98 % [facility]; [facility] Work Phone: 10-24-2022 08:47-0400 Systolic blood pressure 138 mm[Hg] [facility]; [facility] Work Phone: 08-06-2022 08:18-0400 Body height 175.26 cm [facility]; [facility] Work Phone: 08-06-2022 08:18-0400 Body mass index (BMI) [Ratio] 29.83 kg/m2 [facility]; [facility] Work Phone: 08-06-2022 08:18-0400 Body surface area Derived from formula 2.07 m2 [facility]; [facility] Work Phone: 08-06-2022 08:18-0400 Body temperature 97.9 [degF] [facility]; [facility] Work Phone: 08-06-2022 08:18-0400 Body weight 91.63 kg [facility]; [facility] Work Phone: 08-06-2022 08:18-0400 Diastolic blood pressure 80 mm[Hg] [facility]; [facility] Work Phone: 08-06-2022 08:18-0400 Heart rate 65 /min [facility]; [facility] Work Phone: 08-06-2022 08:18-0400 SaO2% (BldA) [Mass fraction] 98 % [facility]; [facility] Work Phone: 08-06-2022 08:18-0400 Systolic blood pressure 130 mm[Hg] [facility]; [facility] Work Phone: 07-18-2022 08:40-0400 Body height 175.26 cm [facility]; [facility] Work Phone: 07-18-2022 08:40-0400 Body mass index (BMI) [Ratio] 30.35 kg/m2 [facility]; [facility] Work Phone: 07-18-2022 08:40-0400 Body surface area Derived from formula 2.09 m2 [facility]; [facility] Work Phone: 07-18-2022 08:40-0400 Body temperature 98.2 [degF] [facility]; [facility] Work Phone: 05-24-2023 08:40-0400 Body weight 93.21 kg [facility]; [facility] Work Phone: 07-18-2022 08:40-0400 Diastolic blood pressure 62 mm[Hg] [facility]; [facility] Work Phone: Comment on above: Patient Position: Sitting; Cuff Location : Left Arm; Cuff Size: Standard 07-18-2022 08:40-0400 Heart rate 71 /min [facility]; [facility] Work Phone: Comment on above: Pattern: Regular 07-18-2022 08:40-0400 Respiratory rate 18 /min [facility]; [facility] Work Phone: Comment on above: Pattern: Unlabored 07-18-2022 08:40-0400 SaO2% (BldA) [Mass fraction] 97 % [facility]; [facility] Work Phone: Comment on above: Room air 07-18-2022 08:40-0400 Systolic blood pressure 132 mm[Hg] [facility]; [facility] Work Phone: Comment on above: Patient Position: Sitting; Cuff Location : Left Arm; Cuff Size: Standard 04-11-2022 08:16-0500 Body height 175.26 cm [facility]; [facility] Work Phone: 04-11-2022 08:16-0500 Body mass index (BMI) [Ratio] 34.11 kg/m2 [facility]; [facility] Work Phone: 04-11-2022 08:16-0500 Body surface area Derived from formula 2.2 m2 [facility]; [facility] Work Phone: 04-11-2022 08:16-0500 Body temperature 96.96 [degF] [facility] Comprehensiv e Internal Medicine; [facility] Work Phone: 04-11-2022 08:16-0500 Body weight 104.78 kg [facility]; [facility] Work Phone: 04-11-2022 08:16-0500 Diastolic blood pressure 80 mm[Hg] [facility]; [facility] Work Phone: Comment on above: Patient Position: Sitting; Cuff Location : Left Arm; Cuff Size: Standard 04-11-2022 08:16-0500 Heart rate 73 /min [facility]; [facility] Work Phone: Comment on above: Pattern: Regular 04-11-2022 08:16-0500 Respiratory rate 16 /[facility] Comprehensiv e Internal Medicine; [facility] Work Phone: Comment on above: Pattern: Unlabored 04-11-2022 08:16-0500 SaO2% (BldA) [Mass fraction] 95 % [facility]; [facility] Work Phone: Comment on above: Room air 04-11-2022 08:16-0500 Systolic blood pressure 140 mm[Hg] [facility]; [facility] Work Phone: Comment on above: Patient Position: Sitting; Cuff Location : Left Arm; Cuff Size: Standard 01-03-2022 08:20-0500 Body height 175.26 cm [facility]; [facility] Work Phone: 01-03-2022 08:20-0500 Body mass index (BMI) [Ratio] 33.13 kg/m2 [facility]; [facility] Work Phone: 01-03-2022 08:20-0500 Body surface area Derived from formula 2.17 m2 [facility]; [facility] Work Phone: 01-03-2022 08:20-0500 Body temperature 96.9 [degF] [facility] Comprehensiv e Internal Medicine; [facility] Work Phone: 01-03-2022 08:20-0500 Body [facility].78 [facility]; [facility] Work Phone: 01-03-2022 08:20-0500 Diastolic blood pressure 80 mm[Hg] [facility] [facility]; [facility] Work Phone: Comment on above: Patient Position: Sitting; Cuff Location : Left Arm; Cuff Size: Standard 01-03-2022 08:20-0500 Heart rate 67 /min [place]; [facility] Work Phone: Comment on above: Pattern: Regular 01-03-2022 08:20-0500 Respiratory rate 16 /min Marshall Rosenthal [facility] Comprehensiv e Internal Medicine; [facility] Work Phone: Comment on above: Pattern: Unlabored 01-03-2022 08:20-0500 SaO2% (BldA) [Mass fraction] 99 % Marshall Rosenthal [facility]; [facility] Work Phone: Comment on above: Room air 01-03-2022 08:20-0500 Systolic blood pressure 160 mm[Hg] Marshall Rosenthal [facility]; [facility] Work Phone: Comment on above: Patient Position: Sitting; Cuff Location : Left Arm; Cuff Size: Standard 09-27-2021 08:03-0400 Body height 175.26 cm Angelica [facility]; [facility] Work Phone: 09-27-2021 08:03-0400 Body mass index (BMI) [Ratio] 32.21 kg/m2 [facility]; [facility] Work Phone: 09-27-2021 08:03-0400 Body surface area Derived from formula 2.14 m2 [facility]; [facility] [...] 08:03-0400 Heart rate 68 /min Angelica Meneses [facility]; [facility] Work Phone: Comment on above: Pattern: Regular 09-27-2021 08:03-0400 Respiratory rate 16 /min Angelica Meneses [facility] Comprehensiv e Internal Medicine; [facility] Work Phone: Comment on above: Pattern: Unlabored 09-27-2021 08:03-0400 SaO2% (BldA) [Mass fraction] 97 % Angelica Meneses [facility]; [facility] Work Phone: Comment on above: Room air 09-27-2021 08:03-0400 Systolic blood pressure 150 mm[Hg] Angelica Meneses [facility]; [facility] Work Phone: Comment on above: Patient Position: Sitting; Cuff Location : Left Arm; Cuff Size: Standard 05-24-2021 11:29-0400 Body height 175.26 cm Angelica Meneses [facility]; [facility] Work Phone: 05-24-2021 11:29-0400 Body mass index (BMI) [Ratio] 32.8 kg/m2 Angelica Meneses [facility]; [facility] Work Phone: 05-24-2021 11:29-0400 Body surface area Derived from formula 2.16 m2 Angelica Meneses [facility]; [facility] [...] 11:29-0400 Heart rate 79 /min Angelica Meneses [facility]; [facility] Work Phone: Comment on above: Pattern: Regular 05-24-2021 11:29-0400 Respiratory rate 18 /min Angelica Meneses CMA Comprehensiv e [facility]; [facility] Work Phone: Comment on above: Pattern: Unlabored 05-24-2021 11:29-0400 SaO2% (BldA) [Mass fraction] 98 % Angelica Meneses [facility]; [facility] Work Phone: Comment on above: Room air 05-24-2021 11:29-0400 Systolic blood pressure 132 mm[Hg] Angelica Meneses [facility]; [facility] Work Phone: Comment on above: Patient Position: Sitting; Cuff Location : Left Arm; Cuff Size: Standard 02-01-2021 09:47-0500 Body height 175.26 cm Tamar Keane LPN [facility]; [facility] Work Phone: 02-01-2021 09:47-0500 Body mass index (BMI) [Ratio] 30.88 kg/m2 Tamar Keane [facility]; [facility] Work Phone: 02-01-2021 09:47-0500 Body surface area Derived from formula 2.11 m2 Tamar Keane [employer] [facility]; [facility] Work [...] 08:25-0400 Body height 175.26 cm Angelica Meneses [facility]; [facility] Work Phone: 10-26-2020 08:25-0400 Body mass index (BMI) [Ratio] 31.34 kg/m2 Angelica Meneses [facility]; [facility] Work Phone: 10-26-2020 08:25-0400 Body surface area Derived from formula 2.12 m2 Angelica Meneses [facility]; [facility] Work Phone: 10-26-2020 08:25-0400 Body temperature 97.1 [degF] Angelica Meneses [employer] Comprehensiv e [facility]; [facility] Work Phone: Comment on above: Method: Infrared 10-26-2020 08:25-0400 Body weight 96.28 kg Angelica Meneses [facility]; [facility] Work Phone: 10-26-2020 08:25-0400 Diastolic blood pressure 84 mm[Hg] Angelica Meneses [facility]; [facility] Work Phone: Comment on above: Patient Position: Sitting; Cuff Location : Left Arm; Cuff Size: Standard 10-26-2020 08:25-0400 Heart rate 66 /min Angelica Meneses [facility]; [facility] Work Phone: Comment on above: Pattern: Regular 10-26-2020 08:25-0400 Respiratory rate 16 /min Angelica Meneses [facility] Comprehensiv e Internal Medicine; [facility] Work Phone: Comment on above: Pattern: Unlabored 10-26-2020 08:25-0400 SaO2% (BldA) [Mass fraction] 97 % Angelica Meneses [facility]; [facility] Work Phone: Comment on above: Room air 10-26-2020 08:25-0400 Systolic blood pressure 121 mm[Hg] Angelica Meneses [facility]; [facility] Work Phone: Comment on above: Patient Position: Sitting; Cuff Location : Left Arm; Cuff Size: Standard 07-20-2020 09:44-0400 Body height 175.26 cm [facility]; [facility] Work Phone: 07-20-2020 09:44-0400 Body mass index (BMI) [Ratio] 35.04 kg/m2 [facility]; [facility] Work Phone: 07-20-2020 09:44-0400 Body mass index (BMI) [Ratio] 33.12 kg/m2 Nancy Hannah [facility]; [facility] Work Phone: 07-20-2020 09:44-0400 Body surface area Derived from formula 2.22 m2 [facility]; [facility] Work Phone: 07-20-2020 09:44-0400 Body surface area Derived from formula 2.17 m2 Nancy Young [facility]; [facility] Work Phone: 07-20-2020 09:44-0400 Body temperature 97.1 [degF] Nancy Young [facility]; [facility] Work Phone: Comment on above: Method: Thermal Scan 07-20-2020 09:44-0400 Body weight 107.62 kg [facility]; [facility] Work Phone: 07-20-2020 09:44-0400 Body weight 101.72 kg Nancy Young [facility]; [facility] Work Phone: 07-20-2020 09:44-0400 Diastolic blood pressure 74 mm[Hg] Nacny Young [facility]; [facility] Work Phone: Comment on above: Patient Position: Sitting; Cuff Location : Left Arm; Cuff Size: Standard 07-20-2020 09:44-0400 Heart rate 80 /min Nancy Young [facility]; [facility] Work Phone: Comment on above: Pattern: Regular 07-20-2020 09:44-0400 Respiratory rate 16 /min Nancy Young [facility]; [facility] Work Phone: Comment on above: Pattern: Unlabored 07-20-2020 09:44-0400 Systolic blood pressure 130 mm[Hg] Nancy Young [facility]; [facility] Work Phone: Comment on above: Patient Position: Sitting; Cuff Location : Left Arm; Cuff Size: Standard 04-13-2020 08:02-0500 BMI (Body Mass Index) 35.04 kg/m2 [facility]; [facility] Work Phone: Comment on above: Recheck BP 132/80-[facility]N 04-13-2020 08:02-0500 Body Temperature 96.4 [degF] [facility]; [facility] Work Phone: Comment on above: Method: Infrared Recheck BP 132/[facility] 04-13-2020 08:02-0500 Body weight 107.62 kg [facility]; [facility] Work Phone: Comment on above: [facility] 04-13-2020 08:02-0500 BP Diastolic 92 mm[Hg] [facility]; [facility] Work Phone: Comment on above: Patient Position: Sitting; Cuff Location : Left Arm; Cuff Size: Standard Recheck BP 132/80-AC [facility] 04-13-2020 08:02-0500 BP Systolic 141 mm[Hg] [facility]; [facility] Work Phone: Comment on above: Patient Position: Sitting; Cuff Location : Left Arm; Cuff Size: Standard Recheck BP 132/80-AC [facility] 04-13-2020 08:02-0500 BSA (Body Surface Area) 2.22 m2 [facility]; [facility] Work Phone: Comment on above: [facility] 04-13-2020 08:02-0500 Height 175.26 cm [facility]; [facility] Work Phone: Comment on above: [facility] 04-13-2020 08:02-0500 Pulse (Heart Rate) 78 /min [facility]; [facility] Work Phone: Comment on above: Pattern: Regular Recheck BP 132/80-[facility] 04-13-2020 08:02-0500 Pulse Oximetry 97 % Marva Wang [facility]; [facility] Work Phone: Comment on above: Room air Recheck BP 132/80-AC faustinoLPN 04-13-2020 08:02-0500 Respiratory Rate 16 /min [facility]; [facility] Work Phone: Comment on above: Pattern: Unlabored Recheck BP 132/80-AC rossLPN 04-13-2020 08:02-0500 SaO2% (BldA) [Mass fraction] 97 % [facility]; [facility] Work Phone: Comment on above: Room air Recheck BP 132/80-AC faustinoLPN 11-25-2019 08:23-0400 BMI (Body Mass Index) 32.82 kg/m2 Angelica Meneses [facility] Work Phone: 11-25-2019 08:23-0400 Body Temperature 96.8 [degF] Angelica Meneses [facility] Comprehensiv e Internal Medicine Work Phone: Comment on above: Method: Infrared 11-25-2019 08:23-0400 Body weight 100.81 kg Angelica Meneses [facility] Work Phone: 11-25-2019 08:23-0400 BP Diastolic 90 mm[Hg] Angelica Meneses [facility] Work Phone: Comment on above: Patient Position: Sitting; Cuff Location : Left Arm; Cuff Size: Standard 11-25-2019 08:23-0400 BP Systolic 127 mm[Hg] Angelica Meneses [facility] Work Phone: Comment on above: Patient Position: Sitting; Cuff Location : Left Arm; Cuff Size: Standard 11-25-2019 08:23-0400 BSA (Body Surface Area) 2.16 m2 Angelica Meneses [facility] Work Phone: 11-25-2019 08:23-0400 Height 175.26 cm Angelica Meneses [facility] Work Phone: 11-25-2019 08:23-0400 Pulse (Heart Rate) 78 /min Angelica Meneses [facility] Comprehens tyron Internal Medicine Work Phone: Comment on above: Pattern: Regular 11-25-2019 08:23-0400 Pulse Oximetry 95 % Marva Wang [facility] Work Phone: Comment on above: Room air 11-25-2019 08:23-0400 Respiratory Rate 18 /min Angelica Meneses CMA Com[facility] Work Phone: Comment on above: Pattern: Unlabored 11-25-2019 08:23-0400 SaO2% (BldA) [Mass fraction] 95 % Angelica Meneses [facility]; [facility] Work Phone: Comment on above: Room air 07-22-2019 13:39-0400 BMI (Body Mass Index) 34.3 kg/m2 Angelica Meneses [facility] Work Phone: 07-22-2019 13:39-0400 Body Temperature 96.8 [degF] Angelica Meneses CMA [facility] Work Phone: Comment on above: Method: Temporal 07-22-2019 13:39-0400 Body weight 105.35 kg Angelica Meneses [facility] Work Phone: 07-22-2019 13:39-0400 BP Diastolic 84 mm[Hg] Angelica Meneses [facility] Work Phone: Comment on above: Patient Position: Sitting; Cuff Location : Left Arm; Cuff Size: Standard 07-22-2019 13:39-0400 BP Systolic 122 mm[Hg] Angelica Meneses [facility] Work Phone: Comment on above: Patient Position: Sitting; Cuff Location : Left Arm; Cuff Size: Standard 07-22-2019 13:39-0400 BSA (Body Surface Area) 2.2 m2 Angelica Meneses [facility] Work Phone: 07-22-2019 13:39-0400 Height 175.26 cm Angelica Meneses [employer] [facility] Work Phone: 07-22-2019 13:39-0400 Pulse (Heart Rate) 96 /min Angelica Meneses [facility] Comprehens tyron Internal Medicine Work Phone: Comment on above: Pattern: Regular 07-22-2019 13:39-0400 Pulse Oximetry 97 % Marva Wang [facility] Work Phone: Comment on above: Room air 07-22-2019 13:39-0400 Respiratory Rate 16 /min Angelica Meneses CMA Com[facility] Work Phone: Comment on above: Pattern: Unlabored 07-22-2019 13:39-0400 SaO2% (BldA) [Mass fraction] 97 % Angelica Meneses [employer] [facility]; [facility] Work Phone: Comment on above: Room air 02-04-2019 08:21-0500 BMI (Body Mass Index) 34.15 kg/m2 Angelica Meneses CMA [facility] Work Phone: 02-04-2019 08:21-0500 Body Temperature 96.7 [degF] Angelica Meneses CMA Com[facility] Work Phone: Comment on above: Method: Temporal 02-04-2019 08:21-0500 Body weight 104.89 kg Angelica Meneses [employer] [facility] Work Phone: 02-04-2019 08:21-0500 [...] (Body Surface Area) 2.2 m2 Angelica Meneses [employer] [facility] Work Phone: 02-04-2019 08:21-0500 Height 175.26 cm Angelica Meneses CMA [facility] Work Phone: 02-04-2019 08:21-0500 Pulse (Heart Rate) 74 /min Angelica Gravius [employer] Comprehens tyron Internal Medicine Work Phone: Comment on above: Pattern: Regular 02-04-2019 08:21-0500 Pulse Oximetry 97 % Marva Wang [facility] Work Phone: Comment on above: Room air 02-04-2019 08:21-0500 Respiratory Rate 16 /min Angelica Meneses [employer] Com[facility] Work Phone: Comment on above: Pattern: Unlabored 02-04-2019 08:21-0500 SaO2% (BldA) [Mass fraction] 97 % Angelica Meneses [employer] [facility]; [facility] Work Phone: Comment on above: Room air 10-29-2018 08:24-0400 BMI (Body Mass Index) 33.85 kg/m2 Kim Slarb [employer] [facility] Work Phone: 10-29-2018 08:24-0400 Body weight 103.99 kg Kim Slarb [employer] [facility] Work Phone: 10-29-2018 08:24-0400 BP Diastolic 90 mm[Hg] Kim Slarb [employer] [facility] Work Phone: Comment on above: Patient Position: Sitting; Cuff Location : Left Arm; Cuff Size: Standard 10-29-2018 08:24-0400 BP Systolic 138 mm[Hg] Kim Slarb [employer] [facility] Work Phone: Comment on above: Patient Position: Sitting; Cuff Location : Left Arm; Cuff Size: Standard 10-29-2018 08:24-0400 BSA (Body Surface Area) 2.19 m2 Kim Slarb [employer] [facility] Work Phone: 10-29-2018 08:24-0400 Height 175.26 cm Kim Slarb [employer] [facility] Work Phone: 10-29-2018 08:24-0400 Pulse (Heart Rate) 68 /min Kim Slarb [employer] Comprehensiv e Internal Medicine Work Phone: Comment [...] 07-23-2018 08:05-0400 Respiratory Rate 18 /min Nita Coelman RN Comprehensiv e [facility] Medicine Work Phone: [...] 08:55-0400 Pulse Oximetry 98 % Marva Wang [facility] Internal Medicine Work Phone: Comment on [...] 08:54-0400 Pulse Oximetry 97 % Marva Kathleen [facility] Internal Medicine Work Phone: Comment on above: Room air 08-07-2017 08:54-0400 Respiratory Rate 18 /min Nita Coleman RN Comprehensiv [facility] Medicine Work Phone: Comment on above: Pattern: Unlabored 08-07-2017 08:54-0400 SaO2% (BldA) [Mass fraction] 97 % Nita Coleman RN [facility]; [facility] Work Phone: Comment on above: Room air 08-07-2017 08:54-0400 Weight 96.67 kg Marva Kathleen [facility] Internal Medicine Work Phone: 05-01-2017 08:18-0500 BMI (Body Mass Index) 33.43 kg/m2 Cheri Clancy [facility] Internal Medicine Work Phone: 05-01-2017 08:18-0500 Body Temperature 98 [degF] Cheri Clancy [facility] Internal Medicine Work Phone: 05-01-2017 08:18-0500 Body weight 102.68 kg Cheri Clancy [facility] Internal Medicine Work Phone: 05-01-2017 08:18-0500 BP Diastolic 80 mm[Hg] Cheri [facility] Work Phone: Comment on above: Patient Position: Sitting; Cuff Location : Left Arm; Cuff Size: Standard 05-01-2017 08:18-0500 BP Systolic 118 mm[Hg] Cheri Clancy [facility] Internal Medicine Work Phone: Comment on above: Patient Position: Sitting; Cuff Location : Left Arm; Cuff Size: Standard 05-01-2017 08:18-0500 BSA (Body Surface Area) 2.18 m2 Cheri Clancy [facility] Internal Medicine Work Phone: 05-01-2017 08:18-0500 Height 175.26 cm Cheri Aston [facility] Internal Medicine Work Phone: 05-01-2017 08:18-0500 Pulse (Heart Rate) 95 /min Cheri Clancy [facility] Internal Medicine Work Phone: Comment on above: Pattern: Regular 05-01-2017 08:18-0500 Pulse Oximetry 95 % Marva Wang [facility] Internal Medicine Work Phone: Comment on above: Room air 05-01-2017 08:18-0500 Respiratory Rate 18 /min Cheri Clancy [facility] Internal Medicine Work Phone: Comment on above: Pattern: Unlabored 05-01-2017 08:18-0500 SaO2% (BldA) [Mass fraction] 95 % Cheri Aston [facility] Internal Medicine; [facility] Work [...] 09:44-0500 Pulse Oximetry 94 % Marva Wang [facility] Internal Medicine Work Phone: Comment on [...] 08:48-0400 Pulse Oximetry 97 % Marva Wang [facility] Internal Medicine Work Phone: Comment on above: Room air 10-17-2016 08:48-0400 Respiratory Rate 18 /min Nita Coleman RN Comprehensiv e [facility] Medicine Work Phone: Comment on above: Pattern: Unlabored 10-17-2016 08:48-0400 SaO2% (BldA) [Mass fraction] 97 % Nita Coleman RN [facility]; [facility] Work Phone: Comment on above: Room air 10-17-2016 08:48-0400 Weight 96.22 kg Marva Wang [facility] Internal Medicine Work Phone: 07-11-2016 08:20-0400 BMI (Body Mass Index) 31.2 kg/m2 Nancy Manolga [facility] Work Phone: 07-11-2016 08:20-0400 Body weight 95.82 kg Nancy Manolga [facility] Internal Medicine Work Phone: 07-11-2016 08:20-0400 BP Diastolic 78 mm[Hg] Nancy Young [facility] Internal Medicine Work Phone: Comment on above: Patient Position: Sitting; Cuff Location : Left Arm; Cuff Size: Standard 07-11-2016 08:20-0400 BP Systolic 122 mm[Hg] Nancy Mansujeyneno [facility] Work Phone: Comment on above: Patient Position: Sitting; Cuff Location : Left Arm; Cuff Size: Standard 07-11-2016 08:20-0400 BSA (Body Surface Area) 2.11 m2 Nancy Hubersujeyneno [facility] Work Phone: 07-11-2016 08:20-0400 Height 175.26 cm Nancycasi Young [facility] Internal Medicine Work Phone: 07-11-2016 08:20-0400 Pulse (Heart Rate) 66 /min Nancycasi Young [facility] Work Phone: Comment on above: Pattern: Regular 07-11-2016 08:20-0400 Pulse Oximetry 98 % Marva Wang [facility] Work Phone: Comment on above: Room air 07-11-2016 08:20-0400 Respiratory Rate 16 /min Nancy Young [facility] Work Phone: Comment on above: Pattern: Unlabored 07-11-2016 08:20-0400 SaO2% (BldA) [Mass fraction] 98 % Nancy Young [facility]; [facility] Work Phone: Comment on above: Room air 07-11-2016 08:20-0400 Weight 95.82 kg Marva Wang [facility] Work Phone: 04-10-2016 13:00-0500 BMI (Body Mass Index) 30.75 kg/m2 Kim Slarb [employer] [facility] Work Phone: 04-10-2016 13:00-0500 Body Temperature 98.7 [degF] Kim Slarb [employer] [facility] Work Phone: 04-10-2016 13:00-0500 Body weight 94.46 kg Kim Slarb [employer] [facility] Work Phone: 04-10-2016 13:00-0500 BP Diastolic 80 mm[Hg] Kim Slarb [employer] [facility] Work Phone: Comment on above: Patient Position: Sitting; Cuff Location : Left Arm; Cuff Size: Standard 04-10-2016 13:00-0500 BP Systolic 124 mm[Hg] Kim Slarb [employer] [facility] Work Phone: Comment on above: Patient Position: Sitting; Cuff Location : Left Arm; Cuff Size: Standard 04-10-2016 13:00-0500 BSA (Body Surface Area) 2.1 m2 Kim Slarb [employer] [facility] Work Phone: 04-10-2016 13:00-0500 Height 175.26 cm Kim Slarb [employer] [facility] Work Phone: 04-10-2016 13:00-0500 Pulse (Heart Rate) 98 /min Kim José Luis TRACY Comprehensiv e Internal Medicine Work Phone: Comment on above: Pattern: Regular 04-10-2016 13:00-0500 Pulse Oximetry 97 % Marva Wang [facility] Internal Medicine Work Phone: Comment on above: Room air 04-10-2016 13:00-0500 Respiratory Rate 16 /min Kim José Luis [employer] [facility] Work Phone: Comment on above: Pattern: Unlabored 04-10-2016 13:00-0500 SaO2% (BldA) [Mass fraction] 97 % Kim Ordonez [employer] [facility]; [facility] Work Phone: Comment on above: Room air 04-10-2016 13:00-0500 Weight 94.46 kg Marva Wang [facility] Internal Medicine Work Phone: 03-21-2016 08:12-0500 BMI (Body Mass Index) 30.13 kg/m2 [facility] Work Phone: 03-21-2016 08:12-0500 Body weight 92.53 kg [facility] Work Phone: 03-21-2016 08:12-0500 BP Diastolic 70 mm[Hg] [facility] Work Phone: Comment on above: Patient Position: Sitting; Cuff Location : Left Arm; Cuff Size: Standard 03-21-2016 08:12-0500 BP Systolic 120 mm[Hg] [facility] Work [facility]: Comment on above: Patient Position: Sitting; Cuff Location : Left Arm; Cuff Size: Standard 03-21-2016 08:12-0500 BSA (Body Surface Area) 2.08 m2 [facility] Work Phone: 03-21-2016 08:12-0500 Height 175.26 cm [facility] Work Phone: 03-21-2016 08:12-0500 Pulse (Heart Rate) 77 /min Nancy Young [facility] Work Phone: Comment on above: Pattern: Regular 03-21-2016 08:12-0500 Pulse Oximetry 98 % Marva Wang [facility] Internal Medicine Work Phone: Comment on above: Room air 03-21-2016 08:12-0500 Respiratory Rate 16 /min Nancy Young [facility] Work Phone: Comment on above: Pattern: Unlabored 03-21-2016 08:12-0500 SaO2% (BldA) [Mass fraction] 98 % Nancy Young [facility]; [facility] Work Phone: Comment on above: Room air 03-21-2016 08:12-0500 Weight 92.53 kg Marva Wang [facility] Internal Medicine Work Phone: 12-14-2015 08:07-0400 BMI (Body Mass Index) 30.42 kg/m2 [facility] Internal Medicine Work Phone: 12-14-2015 08:07-0400 Body Temperature 98.1 [degF] [facility] Internal Medicine Work Phone: Comment on above: Method: Tympanic 12-14-2015 08:07-0400 Body weight 93.44 kg [facility] Internal Medicine Work Phone: 12-14-2015 08:07-0400 BP Diastolic 62 mm[Hg] [facility]: Comment on above: Patient Position: Sitting; Cuff Location : Left Arm; Cuff Size: Standard 12-14-2015 08:07-0400 BP Systolic 116 mm[Hg] [facility] Work [facility]: Comment on above: Patient Position: Sitting; Cuff Location : Left Arm; Cuff Size: Standard 12-14-2015 08:07-0400 BSA (Body Surface Area) 2.09 m2 [facility] Work Phone: 12-14-2015 08:07-0400 Height 175.26 cm Venus Perkins [facility] Internal Medicine Work Phone: 12-14-2015 08:07-0400 Pulse (Heart Rate) 77 /min Venus Perkins [facility] Internal Medicine Work Phone: Comment on above: Pattern: Regular 12-14-2015 08:07-0400 Pulse Oximetry 98 % Marva Wang [facility] Internal Medicine Work Phone: Comment on above: Room air 12-14-2015 08:07-0400 Respiratory Rate 18 /min Venus Perkins [facility] Internal Medicine Work Phone: Comment on above: Pattern: Unlabored 12-14-2015 08:07-0400 SaO2% (BldA) [Mass fraction] 98 % Venus [facility] Internal Medicine; [facility] Medicine Work Phone: Comment on above: Room air 12-14-2015 08:07-0400 Weight 93.44 kg Marva Wang [facility] Internal Medicine Work Phone: 09-28-2015 10:00-0400 BMI (Body Mass Index) 34.7 kg/m2 Nancy Young [facility] Work Phone: 09-28-2015 10:00-0400 Body weight 106.6 kg Nancy Young [facility] Work Phone: 09-28-2015 10:00-0400 BP Diastolic 70 mm[Hg] [facility] Work Phone: Comment on above: Patient Position: Sitting; Cuff Location : Left Arm; Cuff Size: Standard 09-28-2015 10:00-0400 BP Systolic 120 mm[Hg] Nancy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 present. There is a small 2 mm saccular aneurysm projecting anterosuperiorly from the supraclinoid right ICA (S4 image 416). No additional aneurysm, or vascular malformation identified. CTA NECK: Conventional aortic arch branching. Bilateral cervical carotid and vertebral arteries are patent without any significant stenosis. No luminal irregularity to suggest aneurysm or dissection. NONCONTRAST CT HEAD: No acute intracranial hemorrhage, extra-axial collection, mass effect or evidence of acute infarct. Ventricles and subarachnoid spaces are normal in size. Orbital contents are unremarkable. Intact skull base and calvarium. Small left maxillary mucous retention cyst/polyp. CT/STROKE CTA Head AND Neck W/Con IMPRESSION: 1. No acute intracranial abnormality. 2. Widely patent intracranial and cervical arterial vasculature. 3. 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 Reading Location: [id number] CC: Dr. Chalino Smith MD; Dr. Marva Wang DO ~ Rn Medical Surgical: Signed [facility] 09-21-2024 Discharge summary Note Date/Time September 22, 2024 12:52am [facility] Medical Records Department [address] [place] [address] Emergency Department Summary 09/21/24 MR#: [id number] Acct: [id number] Name: DORCAS BRISENO JrEren Rep #:[id number] : 1965 58 From: Chalino Smith MD PCP: Dr. Marva Wang DO Status:RE G ER Location: ED HPI History of Present Illness Chief Complaint: Numb/Ting Informant: patient and spouse/S.O. Narrative Narrative: 58-year-old male states has been having episodes of numbness left tongue and mouth, left hand, left foot last 10 seconds or so at a time, for the past 36 hours or so. States today he had 3-4 episodes in the last 1 occurred about an hour prior to arrival. He is asymptomatic at this time. No associated headaches, vision changes, earaches, but he has had dizziness associated with them that he initially said felt like lightheadedness but then gave more detailsand said that it felt like he was off balance and was more like a sensation of movement. Not associated with headache, nausea, vomiting, fever, says his neck is felt a little sore lately but nothing severe. 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 States he may be sinus infection citing some right maxillary pressure/pain and congestion several weeks ago but that went away on its own. He takes no antiplatelet or anticoagulants. He is a diabetic and checked his blood sugar prior to coming here and it was in the 140s. [facility] Medical History (Updated 09/22/24 @ 00:[address] Chalino Smith MD) Abnormal TSH Mixed hyperlipidemia Abnormal cardiac CT angiography Type 2 diabetes mellitus Home Medications ?Medication ?Instructions ?Recorded ?Last Taken ?Type metformin 500 mg tablet 1,000 mg PO BIDCM DIABETES 0 05/12/18 05/12/18 History 1000 MG vitamins A,C,L-atjv-jvptfs 4,296 1 cap PO DAILY Unknown History mcg-226 mg-90 mg capsule (PreserVision AREDS) cholecalciferol (vitamin D3) 125 5,000 unit PO DAILY 1 03/15/18 Unknown History mcg (5,000 unit) capsule dapagliflozin propanediol 10 mg 10 mg PO DAILY 5 Unknown History tablet (Farxiga) semaglutide 0.25 mg or 0.5 mg (2 0.5 mg subcut QWEEK 0 09/21/24 Unknown History mg/3 mL) subcutaneous pen injector (Ozempic) Allergy/AdvReac Type Severity Reaction Status Date / Time No Known Allergies Allergy Verified 09/21/24 22:13 Family History (Updated 01/13/19 @ 15:10 by Marcela Pino) Mother CVA (cerebral vascular accident) Grandfather Heart disease Father Kidney disease Daughter Yoskr-Ztlxdjwnp-Xwbng (WPW) syndrome Surgical History History of knee surgery History of umbilical hernia repair Social History (Updated 01/13/19 @ 16:[address] Bakari Gibson MD) Smoking Status: Never smoker alcohol intake: current details: occasional substance use type: does not use caffeine: No ROS ROS ED Constitutional Constitutional ED: Denies chills or fever(s) Eyes Eyes: Denies change in vision or diplopia ENT ENT ED: Reports other Details: Chronic tinnitus no change ; Denies rhinorrhea or sore throat Cardiovascular Cardiovascular: Denies chest pain or palpitations Respiratory/Chest Respiratory/Chest: Denies cough or dyspnea Gastrointestinal Gastrointestinal: Denies abdominal pain, diarrhea, nausea or vomiting Genitourinary Genitourinary ED: Denies dysuria or hematuria Musculoskeletal Musculoskeletal: Denies back pain or neck pain Integumentary Denies abscess or rash Neurologic Neurologic: Reports paresthesias LUE and LLE; Denies headache(s) or weakness Psychiatric Psychiatric: Denies anxiety or suicidal thoughts EXAM Physical Exam Const Vital Signs: 09/21/24 22:13 09/21/24 23:00 09/21/24 23:02 Temperature 97.6 F L Temperature Source Temporal Pulse Rate 105 H 97 Respiratory Rate 18 18 Blood Pressure 154/106 H 132/107 H Blood Pressure Mean 122 115 Pulse Ox 97 97 99 Oxygen Delivery Method Room Air Room Air Room Air 09/22/24 00:00 09/22/24 00:00 Temperature 99.0 F Temperature Source Pulse Rate 91 93 Respiratory Rate 16 16 Blood Pressure 150/92 H 150/92 H Blood Pressure Mean 111 111 Pulse Ox 96 97 Oxygen Delivery Method Room Air Positive well nourished and well developed General Appearance ED: well developed and NAD HEENT Reports TM's clear and moist mucous membranes normocephalic and atraumatic Tympanic Membrane ED: Yes TM's clear Eyes PERRL and EOMs intact bilaterally Neck full ROM and supple Resp normal respiratory effort and clear to auscultation bilaterally Cardio regular rate, regular rhythm and no murmurs GI non-tender and non-distended Auscultation: normoactive bowel sounds Palpation: soft Back/Spine no CVA tenderness General Back: other FROM Extremity normal to inspection General Extremety ED: Negative for edema, pulses abnormal or tenderness General Extremity: Negative for edema or pulses abnormal Neuro oriented x3, CN's II-XII intact bilaterally and no sensory deficits noted Sensorium / Orientation: awake and alert Motor Exam: strength 5/5 throughout Skin no rashes or lesions noted and no wounds MDM MDM MDM Narrative Medical decision making narrative: Patient asymptomatic at this time, vitals noted. Blood pressure in 150s. I think this is less likely to be a TIA although certainly vascular events are considered, so I sent him for CT angiography of the head and neck, as well as getting labs and an EKG which shows a normal sinus rhythm with no acute ectopy or abnormality. I reviewed the CT images as well as result which I agree with. 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 Given that his symptoms are left body right brain, and being unsure if they correlate with the location of this, I discussed with stroke neurology [facility] Dr. Mora, he recommends admitting the patient to our facility for MRI and neurology consultation, states the patient does not need to be transferred to [facility] for emergent neurosurgical consultation at this time. Discussed with hospitalist for admission. Of note the patient has had several brief 10 secondsor less episodes of this while in the emergency department, I do not think he needs to have thrombolytics as this is less likely to be a vascular event under the circumstances. Differential also includes subclinical seizure activity, migraine, other primary OUTDOOR ILLUMINATING ENGINEER syndromes. Lab Data Attestation: I reviewed the patient's lab results. Labs: Laboratory Results - last 24 hr 09/21/24 22:54 WBC 7.0 RBC 5.39 Hgb 15.5 Hct 44.4 MCV 82.4 MCH 28.8 MCHC 34.9 RDW Std Deviation 40.5 RDW Coeff of Alexey 13.7 Plt Count 258 MPV 9.2 Immature Gran % (Auto) 0.300 Neut % (Auto) 53.3 Lymph % (Auto) 37.1 [place] % (Auto) 6.0 Eos % (Auto) 2.6 Baso % (Auto) 0.7 Absolute Neuts (auto) 3.7 Absolute Lymphs (auto) 2.58 Nucleated RBC % 0 Sodium 136 Potassium 4.2 Chloride 99 Carbon Dioxide 20.2 L Anion Gap 16 H BUN 12 Creatinine 1.01 Estim Creat Clear Calc 96.74 Est GFR (MDRD) Non-Af 87 BUN/Creatinine Ratio 11.4 Glucose 185 H Calcium 9.1 Radiography Diagnostic Testing: Clinical Impression(s) from Imaging Studies Head/Neck CTA 09/21/24 22:46 IMPRESSION: 1. No acute intracranial abnormality. 2. Widely patent intracranial and cervical arterial vasculature. 3. 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 Reading Location: [facility] Rhythm Strip Rhythm Strip: Sinus Rhythm Rate: 87 Ectopy: None EKG Initial EKG: Attestation: I personally reviewed and interpreted this EKG as follows: Interpretation: Sinus Rhythm and No Acute Injury Pattern Comments: Nml axis & intervals; nml EKG Management Discussion w/another healthcare provider: Hospitalist and Steam Boiler Fireman (Stroke neurology [facility]) Discharge Plan Dx/Rx/DC Orders Clinical Impression: Left sided numbness, Dysequilibrium Disposition Disposition: [facility] NIHSS NIHSS 1a. Level of Consciousness: 0 - Alert; keenly responsive 1b. LOC Questions: 0 - Answers BOTH questions correctly 1c. LOC Commands: 0 - Performs BOTH tasks correctly 2. Best Gaze: 0 - Normal 3. Visual: 0 - No visual loss 4. Facial Palsy: 0 - Normal symmetrical movements 5a. Left Arm: 0 - No drift; arm holds 90 (or 45) degrees for full 10 seconds 5b. Right Arm: 0 - No drift; arm holds 90 (or 45) degrees for full 10 seconds 6a. Left Le - No drift; leg holds 30-degree position for full 5 seconds 6b. Right Le - No drift; leg holds 30-degree position for full 5 seconds 7. Limb Ataxia: 0 - Absent 8. Sensory: 0 - Normal; no sensory loss 9. Best Language: 0 - No aphasia; normal 10. Dysarthria: 0 - Normal 11. Extinction and Inattention: 0 - No abnormality Total: 0 Stroke Questions Stroke Team Activated: No (Outside 24-hour window) IV Thrombolytic Administered: No (Outside window and asymptomatic) What to do if you have Problems For any increased pain, shortness of breath, bleeding, nausea or vomiting, chestpain, or any unexpected problems, contact your Primary Care Provider. Call [facility] ([phone]) or report to the closest Emergency Room. Call 911 if necessary. 09/22/24 0052 <Electronically signed by Chalino Smith MD> Cosigner Signature (if applicable): CC: Dr. Marva Wang, DO ~ Signed [facility] Work Phone: Evaluation note* Diagnosis Onset Date Resolution Status Admit Date Dysequilibrium acute September 22, 2024 1:12am Left sided numbness acute September 22, 2024 1:12am Type 2 diabetes mellitus acute September 22, 2024 1:12am Mixed hyperlipidemia chronic September 22, 2024 1:12am [facility] Work Phone: History and physical note Author Bakari Dominguez [facility] Note Date/Time September 22, 2024 1:12 am [facility] Medical Records Department [address] [place] [address] History & Physical Exam 09/22/24 0105 MR#: [id number] Acct: [id number] Name: DORCAS BRISENO Jr. Rep #:[id number] : 1965 58 From: Bakari Dominguez MD PCP: Dr. Marva Wang, Status:AD M [facility] - General General Date of Admission: 09/22/24 Date of Service: 09/22/24 Chief Complaint: Numbness and tingling HPI Narrative DORCAS BRISENO, is a 58 M who presents to the emergency room with chief complaint of numbness and tingling of left face and tongue, left hand and left foot. Patient states that over the past 36 hours he has had several episodes where he has had numbness and tingling in his left tongue mouth left hand and left foot that lasts approximately 10 seconds or so each time. Currently he is asymptomatic but states he has had a few episodes while being in the emergency room. Patient denies any headaches, change in vision, earache but does state when he has these episodes he feels a bit lightheaded. Patient denies any nausea vomiting fever, chest pain or shortness of breath. 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 He also had a sinus infection approximately 6 weeks ago. Patient is not on antiplatelet or anticoagulation therapy and he is a diabetic but sugars have been controlled. Patient will be admitted for neurologic evaluation and MRI in the morning. [facility] Medical History (Updated 09/22/24 @ 00:[address] Chalino Smith MD) Abnormal TSH Mixed hyperlipidemia Abnormal cardiac CT angiography Type 2 diabetes mellitus Home Medications ?Medication ?Instructions ?Recorded ?Last Taken ?Type metformin 500 mg tablet 1,000 mg PO BIDCM DIABETES 0 05/12/18 05/12/18 History 1000 MG vitamins A,C,E-xltk-rkqmwt 4,296 1 cap PO DAILY Unknown History mcg-226 mg-90 mg capsule (PreserVision AREDS) cholecalciferol (vitamin D3) 125 5,000 unit PO DAILY 1 03/15/18 Unknown History mcg (5,000 unit) capsule dapagliflozin propanediol 10 mg 10 mg PO DAILY 5 Unknown History tablet (Farxiga) semaglutide 0.25 mg or 0.5 mg (2 0.5 mg subcut QWEEK 0 09/21/24 Unknown History mg/3 mL) subcutaneous pen injector (Ozemp[employer]y [employer]) Allergy/AdvReac Type Severity Reaction Status Date / Time No Known Allergies Allergy Verified 09/21/24 22:13 Family History (Updated 01/13/19 @ 15:10 by Marcela Pino) Mother CVA (cerebral vascular accident) Grandfather Heart disease Father Kidney disease Daughter Cgydq-Opolbjgia-Cnuys (WPW) syndrome Surgical History History of knee surgery History of umbilical hernia repair Social History (Updated 01/13/19 @ 16:[address] Bakari Gibson MD) Smoking Status: Never smoker alcohol intake: current details: occasional substance use type: does not use caffeine: No ROS Constitutional Constitutional: Denies chills or fever(s) Eyes Eyes: Denies change in vision ENT HEENT: Denies abnormal hearing or ear pain Cardiovascular Cardiovascular: Denies chest pain or edema Respiratory/Chest Respiratory/Chest: Denies shortness of breath at rest Gastrointestinal Gastrointestinal: Denies abdominal pain Genitourinary Genitourinary: Denies dysuria Musculoskeletal Musculoskeletal: Denies back pain or extremity pain Integumentary Integumentary: Denies lesions Neurologic Neurologic: Reports numbness and tingling; Denies abnormal gait or abnormal speech Psychiatric Psychiatric: Denies depression Vital Signs Vital Signs Vital Signs: 09/21/24 22:13 09/21/24 23:00 09/21/24 23:02 Temperature 97.6 F L Temperature Source Temporal Pulse Rate 105 H 97 Respiratory Rate 18 18 Blood Pressure 154/106 H 132/107 H Blood Pressure Mean 122 115 Pulse Ox 97 97 99 Oxygen Delivery Method Room Air Room Air Room Air 09/22/24 00:00 09/22/24 00:00 Temperature 99.0 F Temperature Source Pulse Rate 91 93 Respiratory Rate 16 16 Blood Pressure 150/92 H 150/92 H Blood Pressure Mean 111 111 Pulse Ox 96 97 Oxygen Delivery Method Room Air Weight Weight: 227 lb 12.8 oz Body Mass Index (BMI) 33.6 Physical Exam Const alert, oriented x3 and no apparent distress General Appearance: cooperative and well developed HEENT normocephalic and head/scalp atraumatic Eyes PERRL and EOMs intact bilaterally Neck no lymphadenopathy, supple and no JVD Lymph Lymphatic: no lymphadenopathy noted Resp normal respiratory effort, normal air movement and clear to auscultation bilaterally Cardio regular rate, regular rhythm, S1 normal heart sound, S2 normal heart sound and no murmurs GI normal to inspection, nondistended, normoactive bowel sounds Extremity normal capillary refill General Extremity: Negative for edema Skin General Skin Exam: no breakdown Neuro CN's II-XII intact bilaterally, no focal motor deficits and no sensory deficits noted Speech: speech normal Motor Exam: strength 5/5 throughout Psych thought process normal, cooperative and affect normal Results Lab / Micro Data 09/21/24 22:54 09/21/24 22:54 Labs: Laboratory Results - last 24 hr 09/21/24 22:54: WBC 7.0, RBC 5.39, Hgb 15.5, Hct 44.4, MCV 82.4, MCH 28.8, MCHC 34.9, RDW Std Deviation 40.5, RDW Coeff of Alexey 13.7, Plt Count 258, MPV 9.2, Immature Gran % (Auto) 0.300, Neut % (Auto) 53.3, Lymph % (Auto) 37.1, [place] % (Auto) 6.0, Eos % (Auto) 2.6, Baso % (Auto) 0.7, Absolute Neuts (auto) 3.7, Absolute Lymphs (auto) 2.58, Nucleated RBC % 0, Sodium 136, Potassium 4.2, Chloride 99, Carbon Dioxide 20.2 L, Anion Gap 16 H, BUN 12, Creatinine 1.01, Estim Creat Clear Calc 96.74, Est GFR (MDRD) Non-Af 87, BUN/Creatinine Ratio 11.4, Glucose 185 H, Calcium 9.1 Rhythm Strip Rhythm Strip: Sinus Rhythm Rate: 87 Ectopy: None Imaging Radiology Impression Head/Neck CTA 09/21/24 22:46 IMPRESSION: 1. No acute intracranial abnormality. 2. Widely patent intracranial and cervical arterial vasculature. 3. 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 Reading Location: [facility] Assessment & Plan Assessment/Plan (1) Left sided numbness: (2) Mixed hyperlipidemia: (3) Type 2 diabetes mellitus: (4) Dysequilibrium: PLAN: Plan 1 transient left-sided numbness?admit patient to progressive care unit, neurologic checks every 4 hours per routine protocol and check MRI head in the a.m. consider teleneurology consult as patient case was discussed with neurologyin the emergency room. Of note small right ICA aneurysm 2 mm was noted but thought not to be relevant to current presentation based on neurology consult done in the emergency room. Will initiate aspirin therapy 2. Diabetes?continue routine home medications 3. Hyperlipidemia?continue statin 4. DVT prophylaxis?low molecular weight heparin Charges/Coding Visit Charges OBSV E&M: [id number] Observ/hosp same date L2 09/22/24 0112 <Electronically signed by Bakari Dominguez MD> Cosigner Signature (if applicable): CC: Dr. Marva Wang DO; Dr. Bakari Dominguez MD~ Signed [facility] Work Phone: Instructions* Name Dates Details Patient Instructions Indication:Nonsmoker Start:13-Apr-2020 Instruction Type:Provider Instructions for Treatment How to Access Health Informa tion Online using Patient Portal and 3rd Libertarian Apps Indication:Nonsmoker Start:13-Apr-2020 Instruction Type:Patient Education How [...] tion Online using Patient Portal and 3rd Libertarian Apps Indication:Nonsmoker Start:20-Jul-2020 Instruction Type:Patient Education Patient Instructions Indication:Nonsmoker Start:20-Jul-2020 Instruction Type:Provider Instructions for Treatment Patient Instructions Indication:Nonsmoker Start:13-Apr-2020 Instruction Type:Provider Instructions for Treatment How to Access Health Informa tion Online using Patient Portal and 3rd Libertarian Apps Indication:Nonsmoker Start:13-Apr-2020 Instruction Type:Patient Education How [...] Informa tion Online using Patient Portal and [employer] Apps Indication:Nonsmoker Start:20-Jul-2020 Instruction Type:Patient Education Patient Instructions Indication:Nonsmoker Start:20-Jul-2020 Instruction Type:Provider Instructions for Treatment Patient Instructions Indication:Nonsmoker Start:13-Apr-2020 Instruction Type:Provider Instructions for Treatment How to Access Health Informa tion Online using Patient Portal and 3rd [employer] Apps Indication:Nonsmoker Start:13-Apr-2020 Instruction Type:Patient Education How [...] tion Online using Patient Portal and 3rd Libertarian Apps Indication:Diabetes mellitus type II, controlled, with no complications (Renamed from Controlled type 2 diabetes mellitus without complication) Start:01-Feb-2021 Instruction Type:Patient Education Patient Instructions Indication:BMI 30.0-30.9,adult Start:26-Oct-2020 Instruction Type:Provider Instructions for Treatment How to Access Health Informa tion Online using Patient Portal and 3rd Libertarian Apps Indication:BMI 30.0-30.9,adult Start:26-Oct-2020 Instruction Type:Patient Education How to Access Health Informa tion Online using Patient Portal and 3rd Libertarian Apps Indication:Nonsmoker Start:20-Jul-2020 Instruction Type:Patient Education Patient Instructions Indication:Nonsmoker Start:20-Jul-2020 Instruction Type:Provider Instructions for Treatment Patient Instructions Indication:Nonsmoker Start:13-Apr-2020 Instruction Type:Provider Instructions for Treatment How to Access Health Informa tion Online using Patient Portal and 3rd [employer] Apps Indication:Nonsmoker Start:13-Apr-2020 Instruction Type:Patient Education How [...] tion Online using Patient Portal and 3rd Libertarian Apps Indication:Diabetes mellitus type II, controlled, with no complications (Renamed from Controlled type 2 diabetes mellitus without complication) Start:01-Feb-2021 Instruction Type:Patient Education Patient Instructions Indication:BMI 30.0-30.9,adult Start:26-Oct-2020 Instruction Type:Provider Instructions for Treatment How to Access Health Informa tion Online using Patient Portal and 3rd [employer] Apps Indication:BMI 30.0-30.9,adult Start:26-Oct-2020 Instruction Type:Patient Education How to Access Health Informa tion Online using Patient Portal and 3rd Libertarian Apps Indication:Nonsmoker Start:20-Jul-2020 Instruction Type:Patient Education Patient Instructions Indication:Nonsmoker Start:20-Jul-2020 Instruction Type:Provider Instructions for Treatment Patient Instructions Indication:Nonsmoker Start:13-Apr-2020 Instruction Type:Provider Instructions for Treatment How to Access Health Informa tion Online using Patient Portal and 3rd Libertarian Apps Indication:Nonsmoker Start:13-Apr-2020 Instruction Type:Patient Education How [...] Informa tion Online using Patient Portal and [employer]arian Apps Indication:Nonsmoker Start:24-May-2021 Instruction Type:Patient Education Patient Instructions Indication:Diabetes mellitus type II, controlled, with no complications (Renamed from Controlled type 2 diabetes mellitus without complication) Start:01-Feb-2021 Instruction Type:Provider Instructions for Treatment How to Access Health Informa tion Online using Patient Portal and 3rd Libertarian Apps Indication:Diabetes mellitus type II, controlled, with no complications (Renamed from Controlled type 2 diabetes mellitus without complication) Start:01-Feb-2021 Instruction Type:Patient Education Patient Instructions Indication:BMI 30.0-30.9,adult Start:26-Oct-2020 Instruction Type:Provider Instructions for Treatment How to Access Health Informa tion Online using Patient Portal and 3rd [employer] Apps Indication:BMI 30.0-30.9,adult Start:26-Oct-2020 Instruction Type:Patient Education How to Access Health Informa tion Online using Patient Portal and 3rd Libertarian Apps Indication:Nonsmoker Start:20-Jul-2020 Instruction Type:Patient Education Patient Instructions Indication:Nonsmoker Start:20-Jul-2020 Instruction Type:Provider Instructions for Treatment Patient Instructions Indication:Nonsmoker Start:13-Apr-2020 Instruction Type:Provider Instructions for Treatment How to Access Health Informa tion Online using Patient Portal and 3rd [employer] Apps Indication:Nonsmoker Start:13-Apr-2020 Instruction Type:Patient Education How [...] tion Online using Patient Portal and 3rd Libertarian Apps Indication:Type II diabetes mellitus, well controlled Start:27-Sep-2021 Instruction Type:Patient Education Patient Instructions Indication:Nonsmoker Start:24-May-2021 Instruction Type:Provider Instructions for Treatment How to Access Health Informa tion Online using Patient Portal and 3rd [employer] Apps Indication:Nonsmoker Start:24-May-2021 Instruction Type:Patient Education Patient Instructions Indication:Diabetes mellitus type II, controlled, with no complications (Renamed from Controlled type 2 diabetes mellitus without complication) Start:01-Feb-2021 Instruction Type:Provider Instructions for Treatment How to Access Health Informa tion Online using Patient Portal and 3rd Libertarian Apps Indication:Diabetes mellitus type II, controlled, with no complications (Renamed from Controlled type 2 diabetes mellitus without complication) Start:01-Feb-2021 Instruction Type:Patient Education Patient Instructions Indication:BMI 30.0-30.9,adult Start:26-Oct-2020 Instruction Type:Provider Instructions for Treatment How to Access Health Informa tion Online using Patient Portal and 3rd [employer] Apps Indication:BMI 30.0-30.9,adult Start:26-Oct-2020 Instruction Type:Patient Education How to Access Health Informa tion Online using Patient Portal and 3rd [employer] Apps Indication:Nonsmoker Start:20-Jul-2020 Instruction Type:Patient Education Patient Instructions Indication:Nonsmoker Start:20-Jul-2020 Instruction Type:Provider Instructions for Treatment Patient Instructions Indication:Nonsmoker Start:13-Apr-2020 Instruction Type:Provider Instructions for Treatment How to Access Health Informa tion Online using Patient Portal and [employer] Apps Indication:Nonsmoker Start:13-Apr-2020 Instruction Type:Patient Education How [...] tion Online using Patient Portal and 3rd [employer] Apps Indication:Type II diabetes mellitus, well controlled Start:27-Sep-2021 Instruction Type:Patient Education Patient Instructions Indication:Nonsmoker Start:24-May-2021 Instruction Type:Provider Instructions for Treatment How to Access Health Informa tion Online using Patient Portal and 3rd [employer] Apps Indication:Nonsmoker Start:24-May-2021 Instruction Type:Patient Education Patient Instructions Indication:Diabetes mellitus type II, controlled, with no complications (Renamed from Controlled type 2 diabetes mellitus without complication) Start:01-Feb-2021 Instruction Type:Provider Instructions for Treatment How to Access Health Informa tion Online using Patient Portal and 3rd [employer] Apps Indication:Diabetes mellitus type II, controlled, with no complications (Renamed from Controlled type 2 diabetes mellitus without complication) Start:01-Feb-2021 Instruction Type:Patient Education Patient Instructions Indication:BMI 30.0-30.9,adult Start:26-Oct-2020 Instruction Type:Provider Instructions for Treatment How to Access Health Informa tion Online using Patient Portal and 3rd [employer] Apps Indication:BMI 30.0-30.9,adult Start:26-Oct-2020 Instruction Type:Patient Education How to Access Health Informa tion Online using Patient Portal and 3rd Libertarian Apps Indication:Nonsmoker Start:20-Jul-2020 Instruction Type:Patient Education Patient Instructions Indication:Nonsmoker Start:20-Jul-2020 Instruction Type:Provider Instructions for Treatment Patient Instructions Indication:Nonsmoker Start:13-Apr-2020 Instruction Type:Provider Instructions for Treatment How to Access Health Informa tion Online using Patient Portal and 3rd Libert[employer] Apps Indication:Nonsmoker Start:13-Apr-2020 Instruction Type:Patient Education How [...] tion Online using Patient Portal and 3rd Libert[employer] Apps Indication:BMI 33.0-33.9,adult Start:03-Jan-2022 Instruction Type:Patient Education Patient Instructions Indication:Type II diabetes mellitus, well controlled Start:27-Sep-2021 Instruction Type:Provider Instructions for Treatment How to Access Health Informa tion Online using Patient Portal and 3rd [employer] Apps Indication:Type II diabetes mellitus, well controlled Start:27-Sep-2021 Instruction Type:Patient Education Patient Instructions Indication:Nonsmoker Start:24-May-2021 Instruction Type:Provider Instructions for Treatment How to Access Health Informa tion Online using Patient Portal and 3rd [employer] Apps Indication:Nonsmoker Start:24-May-2021 Instruction Type:Patient Education Patient Instructions Indication:Diabetes mellitus type II, controlled, with no complications (Renamed from Controlled type 2 diabetes mellitus without complication) Start:01-Feb-2021 Instruction Type:Provider Instructions for Treatment How to Access Health Informa tion Online using Patient Portal and 3rd [employer] Apps Indication:Diabetes mellitus type II, controlled, with no complications (Renamed from Controlled type 2 diabetes mellitus without complication) Start:01-Feb-2021 Instruction Type:Patient Education Patient Instructions Indication:BMI 30.0-30.9,adult Start:26-Oct-2020 Instruction Type:Provider Instructions for Treatment How to Access Health Informa tion Online using Patient Portal and 3rd [employer] Apps Indication:BMI 30.0-30.9,adult Start:26-Oct-2020 Instruction Type:Patient Education How to Access Health Informa tion Online using Patient Portal and 3rd [employer] Apps Indication:Nonsmoker Start:20-Jul-2020 Instruction Type:Patient Education Patient Instructions Indication:Nonsmoker Start:20-Jul-2020 Instruction Type:Provider Instructions for Treatment Patient Instructions Indication:Nonsmoker Start:13-Apr-2020 Instruction Type:Provider Instructions for Treatment How to Access Health Informa tion Online using Patient Portal and 3rd [employer] Apps Indication:Nonsmoker Start:13-Apr-2020 Instruction Type:Patient Education How [...] tion Online using Patient Portal and 3rd Libert[employer] Apps Indication:BMI 33.0-33.9,adult Start:03-Jan-2022 Instruction Type:Patient Education Patient Instructions Indication:Type II diabetes mellitus, well controlled Start:27-Sep-2021 Instruction Type:Provider Instructions for Treatment How to Access Health Informa tion Online using Patient Portal and 3rd [employer] Apps Indication:Type II diabetes mellitus, well controlled Start:27-Sep-2021 Instruction Type:Patient Education Patient Instructions Indication:Nonsmoker Start:24-May-2021 Instruction Type:Provider Instructions for Treatment How to Access Health Informa tion Online using Patient Portal and 3rd [employer] Apps Indication:Nonsmoker Start:24-May-2021 Instruction Type:Patient Education Patient Instructions Indication:Diabetes mellitus type II, controlled, with no complications (Renamed from Controlled type 2 diabetes mellitus without complication) Start:01-Feb-2021 Instruction Type:Provider Instructions for Treatment How to Access Health Informa tion Online using Patient Portal and 3rd [employer] Apps Indication:Diabetes mellitus type II, controlled, with no complications (Renamed from Controlled type 2 diabetes mellitus without complication) Start:01-Feb-2021 Instruction Type:Patient Education Patient Instructions Indication:BMI 30.0-30.9,adult Start:26-Oct-2020 Instruction Type:Provider Instructions for Treatment How to Access Health Informa tion Online using Patient Portal and 3rd [employer] Apps Indication:BMI 30.0-30.9,adult Start:26-Oct-2020 Instruction Type:Patient Education How to Access Health Informa tion Online using Patient Portal and 3rd [employer] Apps Indication:Nonsmoker Start:20-Jul-2020 Instruction Type:Patient Education Patient Instructions Indication:Nonsmoker Start:20-Jul-2020 Instruction Type:Provider Instructions for Treatment Patient Instructions Indication:Nonsmoker Start:13-Apr-2020 Instruction Type:Provider Instructions for Treatment How to Access Health Informa tion Online using Patient Portal and 3rd [employer] Apps Indication:Nonsmoker Start:13-Apr-2020 Instruction Type:Patient Education How [...] tion Online using Patient Portal and 3rd [employer] Apps Indication:BMI 33.0-33.9,adult Start:03-Jan-2022 Instruction Type:Patient Education Patient Instructions Indication:Type II diabetes mellitus, well controlled Start:27-Sep-2021 Instruction Type:Provider Instructions for Treatment How to Access Health Informa tion Online using Patient Portal and 3rd [employer] Apps Indication:Type II diabetes mellitus, well controlled Start:27-Sep-2021 Instruction Type:Patient Education Patient Instructions Indication:Nonsmoker Start:24-May-2021 Instruction Type:Provider Instructions for Treatment How to Access Health Informa tion Online using Patient Portal and 3rd [employer] Apps Indication:Nonsmoker Start:24-May-2021 Instruction Type:Patient Education Patient Instructions Indication:Diabetes mellitus type II, controlled, with no complications (Renamed from Controlled type 2 diabetes mellitus without complication) Start:01-Feb-2021 Instruction Type:Provider Instructions for Treatment How to Access Health Informa tion Online using Patient Portal and 3rd [employer] Apps Indication:Diabetes mellitus type II, controlled, with no complications (Renamed from Controlled type 2 diabetes mellitus without complication) Start:01-Feb-2021 Instruction Type:Patient Education Patient Instructions Indication:BMI 30.0-30.9,adult Start:26-Oct-2020 Instruction Type:Provider Instructions for Treatment How to Access Health Informa tion Online using Patient Portal and 3rd [employer] Apps Indication:BMI 30.0-30.9,adult Start:26-Oct-2020 Instruction Type:Patient Education How to Access Health Informa tion Online using Patient Portal and 3rd [employer] Apps Indication:Nonsmoker Start:20-Jul-2020 Instruction Type:Patient Education Patient Instructions Indication:Nonsmoker Start:20-Jul-2020 Instruction Type:Provider Instructions for Treatment Patient Instructions Indication:Nonsmoker Start:13-Apr-2020 Instruction Type:Provider Instructions for Treatment How to Access Health Informa tion Online using Patient Portal and 3rd [employer] Apps Indication:Nonsmoker Start:13-Apr-2020 Instruction Type:Patient Education How [...] tion Online using Patient Portal and 3rd [employer] Apps Indication:BMI 34.0-34.9,adult Start:11-Apr-2022 Instruction Type:Patient Education Patient Instructions Indication:BMI 33.0-33.9,adult Start:03-Jan-2022 Instruction Type:Provider Instructions for Treatment How to Access Health Informa tion Online using Patient Portal and 3rd [employer] Apps Indication:BMI 33.0-33.9,adult Start:03-Jan-2022 Instruction Type:Patient Education Patient Instructions Indication:Type II diabetes mellitus, well controlled Start:27-Sep-2021 Instruction Type:Provider Instructions for Treatment How to Access Health Informa tion Online using Patient Portal and 3rd [employer] Apps Indication:Type II diabetes mellitus, well controlled Start:27-Sep-2021 Instruction Type:Patient Education Patient Instructions Indication:Nonsmoker Start:24-May-2021 Instruction Type:Provider Instructions for Treatment How to Access Health Informa tion Online using Patient Portal and 3rd [employer] Apps Indication:Nonsmoker Start:24-May-2021 Instruction Type:Patient Education Patient Instructions Indication:Diabetes mellitus type II, controlled, with no complications (Renamed from Controlled type 2 diabetes mellitus without complication) Start:01-Feb-2021 Instruction Type:Provider Instructions for Treatment How to Access Health Informa tion Online using Patient Portal and 3rd [employer] Apps Indication:Diabetes mellitus type II, controlled, with no complications (Renamed from Controlled type 2 diabetes mellitus without complication) Start:01-Feb-2021 Instruction Type:Patient Education Patient Instructions Indication:BMI 30.0-30.9,adult Start:26-Oct-2020 Instruction Type:Provider Instructions for Treatment How to Access Health Informa tion Online using Patient Portal and 3rd [employer] Apps Indication:BMI 30.0-30.9,adult Start:26-Oct-2020 Instruction Type:Patient Education How to Access Health Informa tion Online using Patient Portal and 3rd [employer] Apps Indication:Nonsmoker Start:20-Jul-2020 Instruction Type:Patient Education Patient Instructions Indication:Nonsmoker Start:20-Jul-2020 Instruction Type:Provider Instructions for Treatment Patient Instructions Indication:Nonsmoker Start:13-Apr-2020 Instruction Type:Provider Instructions for Treatment How to Access Health Informa tion Online using Patient Portal and 3rd [employer] Apps Indication:Nonsmoker Start:13-Apr-2020 Instruction Type:Patient Education How [...] tion Online using Patient Portal and [employer]rd [employer] Apps Indication:BMI 34.0-34.9,adult Start:11-Apr-2022 Instruction Type:Patient Education Patient Instructions Indication:BMI 33.0-33.9,adult Start:03-Jan-2022 Instruction Type:Provider Instructions for Treatment How to Access Health Informa tion Online using Patient Portal and 3rd [employer] Apps Indication:BMI 33.0-33.9,adult Start:03-Jan-2022 Instruction Type:Patient Education Patient Instructions Indication:Type II diabetes mellitus, well controlled Start:27-Sep-2021 Instruction Type:Provider Instructions for Treatment How to Access Health Informa tion Online using Patient Portal and 3rd [employer] Apps Indication:Type II diabetes mellitus, well controlled Start:27-Sep-2021 Instruction Type:Patient Education Patient Instructions Indication:Nonsmoker Start:24-May-2021 Instruction Type:Provider Instructions for Treatment How to Access Health Informa tion Online using Patient Portal and 3rd [employer] Apps Indication:Nonsmoker Start:24-May-2021 Instruction Type:Patient Education Patient Instructions Indication:Diabetes mellitus type II, controlled, with no complications (Renamed from Controlled type 2 diabetes mellitus without complication) Start:01-Feb-2021 Instruction Type:Provider Instructions for Treatment How to Access Health Informa tion Online using Patient Portal and 3rd [employer] Apps Indication:Diabetes mellitus type II, controlled, with no complications (Renamed from Controlled type 2 diabetes mellitus without complication) Start:01-Feb-2021 Instruction Type:Patient Education Patient Instructions Indication:BMI 30.0-30.9,adult Start:26-Oct-2020 Instruction Type:Provider Instructions for Treatment How to Access Health Informa tion Online using Patient Portal and 3rd [employer] Apps Indication:BMI 30.0-30.9,adult Start:26-Oct-2020 Instruction Type:Patient Education How to Access Health Informa tion Online using Patient Portal and 3rd [employer] Apps Indication:Nonsmoker Start:20-Jul-2020 Instruction Type:Patient Education Patient Instructions Indication:Nonsmoker Start:20-Jul-2020 Instruction Type:Provider Instructions for Treatment Patient Instructions Indication:Nonsmoker Start:13-Apr-2020 Instruction Type:Provider Instructions for Treatment How to Access Health Informa tion Online using Patient Portal and 3rd [employer] Apps Indication:Nonsmoker Start:13-Apr-2020 Instruction Type:Patient Education How [...] tion Online using Patient Portal and [employer]rd [employer] Apps Indication:BMI 34.0-34.9,adult Start:11-Apr-2022 Instruction Type:Patient Education Patient Instructions Indication:BMI 33.0-33.9,adult Start:03-Jan-2022 Instruction Type:Provider Instructions for Treatment How to Access Health Informa tion Online using Patient Portal and 3rd [employer] Apps Indication:BMI 33.0-33.9,adult Start:03-Jan-2022 Instruction Type:Patient Education Patient Instructions Indication:Type II diabetes mellitus, well controlled Start:27-Sep-2021 Instruction Type:Provider Instructions for Treatment How to Access Health Informa tion Online using Patient Portal and 3rd [employer] Apps Indication:Type II diabetes mellitus, well controlled Start:27-Sep-2021 Instruction Type:Patient Education Patient Instructions Indication:Nonsmoker Start:24-May-2021 Instruction Type:Provider Instructions for Treatment How to Access Health Informa tion Online using Patient Portal and 3rd [employer] Apps Indication:Nonsmoker Start:24-May-2021 Instruction Type:Patient Education Patient Instructions Indication:Diabetes mellitus type II, controlled, with no complications (Renamed from Controlled type 2 diabetes mellitus without complication) Start:01-Feb-2021 Instruction Type:Provider Instructions for Treatment How to Access Health Informa tion Online using Patient Portal and 3rd [employer] Apps Indication:Diabetes mellitus type II, controlled, with no complications (Renamed from Controlled type 2 diabetes mellitus without complication) Start:01-Feb-2021 Instruction Type:Patient Education Patient Instructions Indication:BMI 30.0-30.9,adult Start:26-Oct-2020 Instruction Type:Provider Instructions for Treatment How to Access Health Informa tion Online using Patient Portal and [employer]rd [employer] Apps Indication:BMI 30.0-30.9,adult Start:26-Oct-2020 Instruction Type:Patient Education How to Access Health Informa tion Online using Patient Portal and [employer]rd [employer] Apps Indication:Nonsmoker Start:20-Jul-2020 Instruction Type:Patient Education Patient Instructions Indication:Nonsmoker Start:20-Jul-2020 Instruction Type:Provider Instructions for Treatment Patient Instructions Indication:Nonsmoker Start:13-Apr-2020 Instruction Type:Provider Instructions for Treatment How to Access Health Informa tion Online using Patient Portal and [employer]rd [employer] Apps Indication:Nonsmoker Start:13-Apr-2020 Instruction Type:Patient Education How [...] tion Online using Patient Portal and [employer]rd [employer] Apps Indication:BMI 34.0-34.9,adult Start:11-Apr-2022 Instruction Type:Patient Education Patient Instructions Indication:BMI 33.0-33.9,adult Start:03-Jan-2022 Instruction Type:Provider Instructions for Treatment How to Access Health Informa tion Online using Patient Portal and [employer]rd [employer] Apps Indication:BMI 33.0-33.9,adult Start:03-Jan-2022 Instruction Type:Patient Education Patient Instructions Indication:Type II diabetes mellitus, well controlled Start:27-Sep-2021 Instruction Type:Provider Instructions for Treatment How to Access Health Informa tion Online using Patient Portal and [employer]rd [employer] Apps Indication:Type II diabetes mellitus, well controlled Start:27-Sep-2021 Instruction Type:Patient Education Patient Instructions Indication:Nonsmoker Start:24-May-2021 Instruction Type:Provider Instructions for Treatment How to Access Health Informa tion Online using Patient Portal and 3rd [employer] Apps Indication:Nonsmoker Start:24-May-2021 Instruction Type:Patient Education Patient Instructions Indication:Diabetes mellitus type II, controlled, with no complications (Renamed from Controlled type 2 diabetes mellitus without complication) Start:01-Feb-2021 Instruction Type:Provider Instructions for Treatment How to Access Health Informa tion Online using Patient Portal and 3rd [employer] Apps Indication:Diabetes mellitus type II, controlled, with no complications (Renamed from Controlled type 2 diabetes mellitus without complication) Start:01-Feb-2021 Instruction Type:Patient Education Patient Instructions Indication:BMI 30.0-30.9,adult Start:26-Oct-2020 Instruction Type:Provider Instructions for Treatment How to Access Health Informa tion Online using Patient Portal and [employer]rd [employer] Apps Indication:BMI 30.0-30.9,adult Start:26-Oct-2020 Instruction Type:Patient Education How to Access Health Informa tion Online using Patient Portal and [employer]rd [employer] Apps Indication:Nonsmoker Start:20-Jul-2020 Instruction Type:Patient Education Patient Instructions Indication:Nonsmoker Start:20-Jul-2020 Instruction Type:Provider Instructions for Treatment Patient Instructions Indication:Nonsmoker Start:13-Apr-2020 Instruction Type:Provider Instructions for Treatment How to Access Health Informa tion Online using Patient Portal and [employer]rd [employer] Apps Indication:Nonsmoker Start:13-Apr-2020 Instruction Type:Patient Education How [...] Informa tion Online using Patient Portal and [employer] Apps Indication:BMI 34.0-34.9,adult Start:11-Apr-2022 Instruction Type:Patient Education Patient Instructions Indication:BMI 33.0-33.9,adult Start:03-Jan-2022 Instruction Type:Provider Instructions for Treatment How to Access Health Informa tion Online using Patient Portal and 3rd [employer] Apps Indication:BMI 33.0-33.9,adult Start:03-Jan-2022 Instruction Type:Patient Education Patient Instructions Indication:Type II diabetes mellitus, well controlled Start:27-Sep-2021 Instruction Type:Provider Instructions for Treatment How to Access Health Informa tion Online using Patient Portal and [employer]rd [employer] Apps Indication:Type II diabetes mellitus, well controlled Start:27-Sep-2021 Instruction Type:Patient Education Patient Instructions Indication:Nonsmoker Start:24-May-2021 Instruction Type:Provider Instructions for Treatment How to Access Health Informa tion Online using Patient Portal and 3rd [employer] Apps Indication:Nonsmoker Start:24-May-2021 Instruction Type:Patient Education Patient Instructions Indication:Diabetes mellitus type II, controlled, with no complications (Renamed from Controlled type 2 diabetes mellitus without complication) Start:01-Feb-2021 Instruction Type:Provider Instructions for Treatment How to Access Health Informa tion Online using Patient Portal and [employer]rd [employer] Apps Indication:Diabetes mellitus type II, controlled, with no complications (Renamed from Controlled type 2 diabetes mellitus without complication) Start:01-Feb-2021 Instruction Type:Patient Education Patient Instructions Indication:BMI 30.0-30.9,adult Start:26-Oct-2020 Instruction Type:Provider Instructions for Treatment How to Access Health Informa tion Online using Patient Portal and 3rd [employer] Apps Indication:BMI 30.0-30.9,adult Start:26-Oct-2020 Instruction Type:Patient Education How to Access Health Informa tion Online using Patient Portal and 3rd [employer] Apps Indication:Nonsmoker Start:20-Jul-2020 Instruction Type:Patient Education Patient Instructions Indication:Nonsmoker Start:20-Jul-2020 Instruction Type:Provider Instructions for Treatment Patient Instructions Indication:Nonsmoker Start:13-Apr-2020 Instruction Type:Provider Instructions for Treatment How to Access Health Informa tion Online using Patient Portal and 3rd [employer] Apps Indication:Nonsmoker Start:13-Apr-2020 Instruction Type:Patient Education How [...] Informa tion Online using Patient Portal and Wireless [employer] Apps Indication:Nonsmoker Start:06-Aug-2022 Instruction Type:Patient Education Patient Instructions Indication:BMI 34.0-34.9,adult Start:11-Apr-2022 Instruction Type:Provider Instructions for Treatment How to Access Health Informa tion Online using Patient Portal and 3rd [employer] Apps Indication:BMI 34.0-34.9,adult Start:11-Apr-2022 Instruction Type:Patient Education Patient Instructions Indication:BMI 33.0-33.9,adult Start:03-Jan-2022 Instruction Type:Provider Instructions for Treatment How to Access Health Informa tion Online using Patient Portal and 3rd [employer] Apps Indication:BMI 33.0-33.9,adult Start:03-Jan-2022 Instruction Type:Patient Education Patient Instructions Indication:Type II diabetes mellitus, well controlled Start:27-Sep-2021 Instruction Type:Provider Instructions for Treatment How to Access Health Informa tion Online using Patient Portal and 3rd [employer] Apps Indication:Type II diabetes mellitus, well controlled Start:27-Sep-2021 Instruction Type:Patient Education Patient Instructions Indication:Nonsmoker Start:24-May-2021 Instruction Type:Provider Instructions for Treatment How to Access Health Informa tion Online using Patient Portal and 3rd [employer] Apps Indication:Nonsmoker Start:24-May-2021 Instruction Type:Patient Education Patient Instructions Indication:Diabetes mellitus type II, controlled, with no complications (Renamed from Controlled type 2 diabetes mellitus without complication) Start:01-Feb-2021 Instruction Type:Provider Instructions for Treatment How to Access Health Informa tion Online using Patient Portal and 3rd Libert[employer] Apps Indication:Diabetes mellitus type II, controlled, with no complications (Renamed from Controlled type 2 diabetes mellitus without complication) Start:01-Feb-2021 Instruction Type:Patient Education Patient Instructions Indication:BMI 30.0-30.9,adult Start:26-Oct-2020 Instruction Type:Provider Instructions for Treatment How to Access Health Informa tion Online using Patient Portal and 3rd [employer] Apps Indication:BMI 30.0-30.9,adult Start:26-Oct-2020 Instruction Type:Patient Education How to Access Health Informa tion Online using Patient Portal and 3rd [employer] Apps Indication:Nonsmoker Start:20-Jul-2020 Instruction Type:Patient Education Patient Instructions Indication:Nonsmoker Start:20-Jul-2020 Instruction Type:Provider Instructions for Treatment Patient Instructions Indication:Nonsmoker Start:13-Apr-2020 Instruction Type:Provider Instructions for Treatment How to Access Health Informa tion Online using Patient Portal and 3rd Libert[employer] Apps Indication:Nonsmoker Start:13-Apr-2020 Instruction Type:Patient Education How [...] Informa tion Online using Patient Portal and Wireless Safety [employer]arian Apps Indication:Nonsmoker Start:06-Aug-2022 Instruction Type:Patient Education Patient Instructions Indication:BMI 34.0-34.9,adult Start:11-Apr-2022 Instruction Type:Provider Instructions for Treatment How to Access Health Informa tion Online using Patient Portal and 3rd Libert[employer] Apps Indication:BMI 34.0-34.9,adult Start:11-Apr-2022 Instruction Type:Patient Education Patient Instructions Indication:BMI 33.0-33.9,adult Start:03-Jan-2022 Instruction Type:Provider Instructions for Treatment How to Access Health Informa tion Online using Patient Portal and 3rd Libertarian Apps Indication:BMI 33.0-33.9,adult Start:03-Jan-2022 Instruction Type:Patient Education Patient Instructions Indication:Type II diabetes mellitus, well controlled Start:27-Sep-2021 Instruction Type:Provider Instructions for Treatment How to Access Health Informa tion Online using Patient Portal and 3rd [employer] Apps Indication:Type II diabetes mellitus, well controlled Start:27-Sep-2021 Instruction Type:Patient Education Patient Instructions Indication:Nonsmoker Start:24-May-2021 Instruction Type:Provider Instructions for Treatment How to Access Health Informa tion Online using Patient Portal and 3rd Libertarian Apps Indication:Nonsmoker Start:24-May-2021 Instruction Type:Patient Education Patient Instructions Indication:Diabetes mellitus type II, controlled, with no complications (Renamed from Controlled type 2 diabetes mellitus without complication) Start:01-Feb-2021 Instruction Type:Provider Instructions for Treatment How to Access Health Informa tion Online using Patient Portal and 3rd Libertarian Apps Indication:Diabetes mellitus type II, controlled, with no complications (Renamed from Controlled type 2 diabetes mellitus without complication) Start:01-Feb-2021 Instruction Type:Patient Education Patient Instructions Indication:BMI 30.0-30.9,adult Start:26-Oct-2020 Instruction Type:Provider Instructions for Treatment How to Access Health Informa tion Online using Patient Portal and 3rd Libertarian Apps Indication:BMI 30.0-30.9,adult Start:26-Oct-2020 Instruction Type:Patient Education How to Access Health Informa tion Online using Patient Portal and 3rd Libertarian Apps Indication:Nonsmoker Start:20-Jul-2020 Instruction Type:Patient Education Patient Instructions Indication:Nonsmoker Start:20-Jul-2020 Instruction Type:Provider Instructions for Treatment Patient Instructions Indication:Nonsmoker Start:13-Apr-2020 Instruction Type:Provider Instructions for Treatment How to Access Health Informa tion Online using Patient Portal and 3rd Libert[employer] Apps Indication:Nonsmoker Start:13-Apr-2020 Instruction Type:Patient Education How [...] Informa tion Online using Patient Portal and [employer] Apps Indication:Nonsmoker Start:24-Oct-2022 Instruction Type:Patient Education Patient Instructions Indication:Nonsmoker Start:24-Oct-2022 Instruction Type:Provider Instructions for Treatment Patient Instructions Indication:Nonsmoker Start:06-Aug-2022 Instruction Type:Provider Instructions for Treatment How to Access Health Informa tion Online using Patient Portal and 3rd Libert[employer] Apps Indication:Nonsmoker Start:06-Aug-2022 Instruction Type:Patient Education Patient Instructions Indication:BMI 34.0-34.9,adult Start:11-Apr-2022 Instruction Type:Provider Instructions for Treatment How to Access Health Informa tion Online using Patient Portal and 3rd Libertarian Apps Indication:BMI 34.0-34.9,adult Start:11-Apr-2022 Instruction Type:Patient Education Patient Instructions Indication:BMI 33.0-33.9,adult Start:03-Jan-2022 Instruction Type:Provider Instructions for Treatment How to Access Health Informa tion Online using Patient Portal and 3rd Libertarian Apps Indication:BMI 33.0-33.9,adult Start:03-Jan-2022 Instruction Type:Patient Education Patient Instructions Indication:Type II diabetes mellitus, well controlled Start:27-Sep-2021 Instruction Type:Provider Instructions for Treatment How to Access Health Informa tion Online using Patient Portal and 3rd Libert[employer] Apps Indication:Type II diabetes mellitus, well controlled Start:27-Sep-2021 Instruction Type:Patient Education Patient Instructions Indication:Nonsmoker Start:24-May-2021 Instruction Type:Provider Instructions for Treatment How to Access Health Informa tion Online using Patient Portal and 3rd Libert[employer] Apps Indication:Nonsmoker Start:24-May-2021 Instruction Type:Patient Education Patient Instructions Indication:Diabetes mellitus type II, controlled, with no complications (Renamed from Controlled type 2 diabetes mellitus without complication) Start:01-Feb-2021 Instruction Type:Provider Instructions for Treatment How to Access Health Informa tion Online using Patient Portal and 3rd Libertarian Apps Indication:Diabetes mellitus type II, controlled, with no complications (Renamed from Controlled type 2 diabetes mellitus without complication) Start:01-Feb-2021 Instruction Type:Patient Education Patient Instructions Indication:BMI 30.0-30.9,adult Start:26-Oct-2020 Instruction Type:Provider Instructions for Treatment How to Access Health Informa tion Online using Patient Portal and 3rd Libertarian Apps Indication:BMI 30.0-30.9,adult Start:26-Oct-2020 Instruction Type:Patient Education How to Access Health Informa tion Online using Patient Portal and 3rd Libert[employer] Apps Indication:Nonsmoker Start:20-Jul-2020 Instruction Type:Patient Education Patient Instructions Indication:Nonsmoker Start:20-Jul-2020 Instruction Type:Provider Instructions for Treatment Patient Instructions Indication:Nonsmoker Start:13-Apr-2020 Instruction Type:Provider Instructions for Treatment How to Access Health Informa tion Online using Patient Portal and 3rd Libert[employer] Apps Indication:Nonsmoker Start:13-Apr-2020 Instruction Type:Patient Education How [...] tion Online using Patient Portal and 3rd Libertarian Apps Indication:Nonsmoker Start:24-Oct-2022 Instruction Type:Patient Education Patient Instructions Indication:Nonsmoker Start:24-Oct-2022 Instruction Type:Provider Instructions for Treatment Patient Instructions Indication:Nonsmoker Start:06-Aug-2022 Instruction Type:Provider Instructions for Treatment How to Access Health Informa tion Online using Patient Portal and 3rd [employer] Apps Indication:Nonsmoker Start:06-Aug-2022 Instruction Type:Patient Education Patient Instructions Indication:BMI 34.0-34.9,adult Start:11-Apr-2022 Instruction Type:Provider Instructions for Treatment How to Access Health Informa tion Online using Patient Portal and 3rd [employer] Apps Indication:BMI 34.0-34.9,adult Start:11-Apr-2022 Instruction Type:Patient Education Patient Instructions Indication:BMI 33.0-33.9,adult Start:03-Jan-2022 Instruction Type:Provider Instructions for Treatment How to Access Health Informa tion Online using Patient Portal and 3rd Libert[employer] Apps Indication:BMI 33.0-33.9,adult Start:03-Jan-2022 Instruction Type:Patient Education Patient Instructions Indication:Type II diabetes mellitus, well controlled Start:27-Sep-2021 Instruction Type:Provider Instructions for Treatment How to Access Health Informa tion Online using Patient Portal and 3rd Libertarian Apps Indication:Type II diabetes mellitus, well controlled Start:27-Sep-2021 Instruction Type:Patient Education Patient Instructions Indication:Nonsmoker Start:24-May-2021 Instruction Type:Provider Instructions for Treatment How to Access Health Informa tion Online using Patient Portal and 3rd Libert[employer] Apps Indication:Nonsmoker Start:24-May-2021 Instruction Type:Patient Education Patient Instructions Indication:Diabetes mellitus type II, controlled, with no complications (Renamed from Controlled type 2 diabetes mellitus without complication) Start:01-Feb-2021 Instruction Type:Provider Instructions for Treatment How to Access Health Informa tion Online using Patient Portal and 3rd Libertarian Apps Indication:Diabetes mellitus type II, controlled, with no complications (Renamed from Controlled type 2 diabetes mellitus without complication) Start:01-Feb-2021 Instruction Type:Patient Education Patient Instructions Indication:BMI 30.0-30.9,adult Start:26-Oct-2020 Instruction Type:Provider Instructions for Treatment How to Access Health Informa tion Online using Patient Portal and 3rd [employer] Apps Indication:BMI 30.0-30.9,adult Start:26-Oct-2020 Instruction Type:Patient Education How to Access Health Informa tion Online using Patient Portal and 3rd Libertarian Apps Indication:Nonsmoker Start:20-Jul-2020 Instruction Type:Patient Education Patient Instructions Indication:Nonsmoker Start:20-Jul-2020 Instruction Type:Provider Instructions for Treatment Patient Instructions Indication:Nonsmoker Start:13-Apr-2020 Instruction Type:Provider Instructions for Treatment How to Access Health Informa tion Online using Patient Portal and 3rd Libertarian Apps Indication:Nonsmoker Start:13-Apr-2020 Instruction Type:Patient Education How [...] Start:28-Sep-2015 Instruction Type:Patient Education How to access [employer] online - Detail Indication:Diabetes mellitus type 2, [...] Internal Medicine; [facility] Work Phone: reason for referral (narrative)No reason for referral information available[facility] Work Phone: Family History Unknown Family Member [...] Hypertension Comments:Father. Status:Active Kidney Disease Comments:Father. Status:Active Relationship Condition Age at Onset Recorded Date/T pee mother Cerebrovascular accident (CVA) Unknown grandfather Cardiac disease Unknown father Kidney disorder Unknown daughter Fmzfx-[id number]-Rbmbj (WPW) syndrome Unkn own Instructions Name Dates Details BMI 30.0-30.9,adult : [...] Informa tion Online using Patient Portal and [employer] Apps Indication:Nonsmoker Start:13-Apr-2020 Instruction Type:Patient Education How [...] 2 diabetes mellitus) Summary Purpose Advance Directives Advance Directive Response Recorded Date/ Time Do you have a Healthcare Power of [employer]? No September 21, 2024 11:02pm Chief Complaint and Reason for Visit Chief Complaint Admit Date LEFT SIDED PARESTHESIAS September 22, 2024 1:12am Reason for Visit Admit Date Dysequilibrium September 22, 2024 1:12 am Left sided numbness September 22, 2024 1:12 am Type 2 diabetes mellitus September 22, 2024 1:12am Mixed hyperlipidemia September 22, 2024 1:1 2am Additional Source Comments (unrecognized sect ion and content) No Status Records Found INFORMATION SOURCE (unrecogn ized section and content) DATE CREATED AUTHOR 06/21/2022 [facility] Teams (unrecognized sec tion and content) Team Status: Active Member Role/Relationship Status Dates Dr. Marva Wang DO Primary Care Provider Active Team Status: Active Member Role/Relationship Status Dates Dr. Marva Wang DO Primary Care Provider Active Start: September 22, 2024 Dr. Chalino Smith MD Emergency Provider Active Start: September 22, 2024 Dr. Bakari Dominguez MD Admit Provider Active Star t: September 22, 2024 Dr. Bakari Dominguez MD Attending Provider Active Start: September 22, 2024 Dr. Bakari Dominguez MD Other Provider Active Star t: September 22, 2024 Goals (unrecognized section and content) Goals may be documented in a n alternate section FOR RECORDS PERTAINING TO PATIENTS WHO ARE [...] BE BASED ON THE PRIMARY CLINICAL RECORDS. [employer] provides no warranty or guarantee of the accuracy or completeness of information in this document.
--- NOTE | 2024-09-22 05:52 | ECHOD_ITS ---
Reason For Study Reason For Study: TIA/CVA Procedure This was a 2D Doppler, Color Flow transthoracic echocardiogram. Exam performed portable in patient room. Left Ventricle Normal LV size. Left ventricular systolic function is normal. The left ventricular ejection fraction is 55 %. No regional wall motion abnormalities noted. Right Ventricle Normal RV size. Normal systolic function. Atria Normal left atrium. Normal right atrium. Bubble contrast study negative for right to left interatrial shunt. Mitral Valve Normal mitral valve. Tricuspid Valve Normal tricuspid valve. Aortic Valve Trisinus/trileaflet aortic valve. Pulmonic Valve Normal pulmonic valve. Great Vessels Mild to moderately dilated aortic root. The pulmonary artery is normal size. Inferior vena cava collapse with respiration. Pericardium/Pleural No pericardial effusion. MMode/2D Measurements & Calculations LVIDd: 4.8 cm IVSd: 1.4 cm Ao root diam: 4.5 cm LVPWd: 0.91 cm LAV(MOD-bp): 45.4 ml Ao sinus diam: 4.[address] Junction: 3.6 cm LAV(MOD-bp) Indexed: 21.1 ml/m2 LAV(MOD-sp2): 39.3 ml LAV(MOD-sp4): 47.1 ml LA dimension(2D): 3.9 cm LA A4 area: 17.9 cm2 Time Measurements MV dec time: 0.18 sec Doppler Measurements & Calculations MV E max jeremiah: 64.7 cm/sec Lat Peak E' Jeremiah: 13.8 cm/sec Med Peak E' Jeremiah: 9.0 cm/sec MV A max jeremiah: 60.9 cm/sec E/E' lat: 4.7 E/E' med: 7.2 MV E/A: 1.1 MV V2 max: 73.8 cm/sec MV P1/2t max jeremiah: 68.9 cm/sec Ao V2 max: 94.4 cm/sec MV max P.2 mmHg MV P1/2t: 56.0 msec Ao max P.6 mmHg MV V2 mean: 46.1 cm/sec MV dec slope: 360.6 cm/sec2 Ao V2 mean: 66.1 cm/sec MV mean P.97 mmHg Ao mean P.0 mmHg MV V2 VTI: 23.5 cm MVA(P1/2t): 3.9 cm2 Ao V2 VTI: 21.6 cm LV V1 max: 89.4 cm/sec LV V1 max P.2 mmHg ECHO/Echo Complete Interpretation Summary Normal LV size. Left ventricular systolic function is normal. Bubble contrast study negative for right to left interatrial shunt. The left ventricular ejection fraction is 55 %. Mild to moderately dilated aortic root. Ordering Physician: Bakari Dominguez Performed By: Stephane Chi RCS
--- NOTE | 2024-09-22 05:55 | MRI_ITS ---
EXAM: BRAIN WITHOUT CONTRAST CLINICAL HISTORY: LEFT SIDE NUMBNESS AND TINGLING COMPARISON: None. TECHNIQUE: Multiplanar, multisequence MR images of the brain were obtained without gadolinium contrast material. FINDINGS: No intracranial hemorrhage, mass, mass effect, midline shift or pathologic extra- axial fluid collection. No hydrocephalus. Preservation of the perry- white parenchymal differentiation. No areas of restricted diffusion to suggest acute ischemia or infarction. No gradient signal blooming artifacts are identified. No cerebellar tonsillar ectopia. No sellar/suprasellar signal abnormalities. The ocular globes and intraorbital soft tissues are symmetrically unremarkable. Mucosal thickening is noted in the left maxillary sinus. MRI/Brain without Contrast IMPRESSION: Mucosal thickening is noted in the left maxillary sinus. Negative MRI of the brain. Reading Location: [facility]
[2024-09-22 06:06] LABS: Hematocrit 42.4 % (40-54); Hemoglobin 14.8 g/dL (13.0-16.5); Immature Granulocytes Count 0.020 X10^3/uL (0.0-0.0); Mean Corp Hgb Conc 34.9 g/dL (32-36); Mean Corpuscular Volume 83.5 fL (80-94); Mean Platelet Vol. 9.5 fl (6.2-12.0); NRBC Flagged by Analyzer 0 % (0-5); Platelet Count 258 K/mm3 (150-450); RBC Distribution Width CV 13.8 % (11.6-14.6); RBC Distribution Width SD 42.1 fl (35.1-43.9); Red Blood Count 5.08 M/mm3 (4.6-6.2); White Blood Count 7.2 K/mm3 (4.4-11.0)
[2024-09-22 06:49] LABS: Cholesterol 261 mg/dL (<=200); Low Density Lipoprotein Calc. -31 mg/dL; Triglycerides 1310 mg/dL; Very Low Density Lipoprotein 262 mg/dL (5-40); cholesterol:hdl ratio screen 8.85
[2024-09-22 06:52] LABS: Anion Gap 16 (5-15); BUN 12 mg/dL (4-19); BUN/Creat Ratio 12.9 RATIO (10-20); Calcium,Total 9.0 mg/dL (7.6-11.0); Carbon Dioxide 19.4 mmol/L (21.0-32.0); Chloride 100 mmol/L (98-108); Estimated Creatinine Clearance 104.57 ml/min (50-250); Glucose 158 mg/dL (70-99); Potassium 4.0 mmol/L (3.3-5.1)
[2024-09-22] MEDS: Multivitamin (Healthy Eyes) Capsule 1 CAP PO (09:02)
--- NOTE | 2024-09-22 10:45 | CASEMGMT ---
Social Work As per the imaging reports, it appears pt did not have a stroke. PHQ-9 not completed at this time. PRABHJOT Hammond
--- NOTE | 2024-09-22 12:39 | MRI_ITS ---
PROCEDURE: BRAIN W/WO CONTRAST 09/22/2024 REASON FOR EXAM: NEUROLOGICAL SYMPTOMS TECHNIQUE: Multiplanar and multisequential MRI of the brain was performed without and with IV gadolinium based contrast administration. CONTRAST: Clariscan VOLUME: 20 mL COMPARISON: Head CT 09/22/2024. FINDINGS: No regions of abnormal restricted diffusion to indicate recent infarct. No evidence for intracranial hemorrhage, extra-axial collection, mass effect, or hydrocephalus. There is no intracranial mass lesion or pathologic enhancement. The ventricular and sulcal size and configuration are within normal limits. Minimal scattered foci of leukoaraiosis in the supratentorial white matter. Preserved major vascular flow voids. Grossly unremarkable orbits. Well-aerated paranasal sinuses, with a small left maxillary mucous retention cyst/polyp. No mastoid effusions. MRI/Brain W/WO Contrast IMPRESSION: No acute intracranial abnormality. Reading Location: [id number]
--- NOTE | 2024-09-22 12:40 | MRI_ITS ---
PROCEDURE: SPINE CERVICAL W/WO CONTRAST 09/22/2024 REASON FOR EXAM: ABNORMAL NEUROLOGICAL SYMPTOMS TECHNIQUE: SPINE CERVICAL W/WO CONTRAST Multiplanar and multisequence images were obtained without and with intravenous gadolinium-based contrast administration. CONTRAST: Clariscan VOLUME: 20 mL COMPARISON: CTA neck 09/21/2024. FINDINGS: No acute fracture or subluxation. Alignment is anatomic. Normal marrow signal. Mild multilevel spondylotic changes with varying degrees of mild disc desiccation and narrowing, degenerative chronic vertebral body wedge compression and Schmorl's node formations, anterior osteophytosis, uncovertebral spurring and hypertrophic facet arthropathy. There is no significant disc bulge or spinal canal narrowing. The visualized spinal cord is normal in signal and contour. No mass lesion, abnormal collection or pathologic enhancement in the spinal canal. Neural foraminal narrowing is mild-moderate bilaterally at C5-6, and moderate- advanced bilaterally at C7-T1 and T1-T2 secondary to uncovertebral/facet hypertrophy. Unremarkable paravertebral soft tissues. MRI/Spine Cervical W/WO Contrast IMPRESSION: 1. No acute abnormality; no acute fracture or malalignment. 2. Normal appearance of the cervical cord. No pathologic enhancement. 3. Mild multilevel spondylotic changes without any significant spinal canal karol rowing or disc herniation. Neural foraminal narrowing is mild-moderate bilaterally at C5-6, and moderate-advanced bilateral ly at C7-T1 and T1-T2. Reading Location: [id number]
--- NOTE | 2024-09-22 12:43 | NEURO.CONS ---
Assessment and Plan: Neuro Assessment/Plan 58 man with HLD, who is presenting with transient episodes of numbness including the left side of the mouth/tongue, and at times hand and foot, associated with sensation of a ?wave that goes over his body? MRI brain with no acute findings Exam is normal Differential include seizures This could be related to spikes in BP. His blood pressure has been elevated during his stay up to 170s, but remained belwo 180s, and for the most part 150-160. Recommendations: -? EEG -? MRI brain and Cervical spine w/wo contrast - Please try to obtain blood pressure during one of these events I personally attended this patient and spent a total time of 45 minutes evaluating this patient including clinical assessment, review of chart, medical history imaging, and determining appropriate treatment and workup. HPI Consult Data Date of Consult: 09/22/24 HPI Narrative HPI Narrative: DORCAS BRISENO, is a 58 M who presented with complaint of numbness and tingling of left face and tongue, left hand and left foot. Patient reports over the past 3 days he is getting numbness and tingling in his left side of mouth angle/tongue, and some in his left hand, occasionally his left foot was involved. Intermittent, usually lasts from 15 seconds to couple minutes. Occurs randomly every 1-2 hours. First happened Saturday evening around 6 pm, he was driving. He feels like it is a little waves that takes over him, feels a little lightheaded. He never loses balance, or drops anything from his hands. no associated headache, no blurry vision. He has never had something like this before. CTH and CTA With no acute findings. There is incidental 2 mm aneurysm. No LVO. No significant stenosis of atherosclerotic disease. MRI brain with no acute findings or evidence of stroke. Physical Exam Exam performed with help of the nurse/SHERYL present with patient on Tele site NEURO: AAOx3, follows commands, no aphasia/dysarthria. PERRL, EOMI, no gaze preference/nystagmus. Face symmetric, Intact facial sensation. Tongue midline. Head turning intact. Sensation: intact to light touch all over Motor: All extremities antigravity Coordination: FTN intact bilaterally PFSH Medical History (Updated 09/22/24 @ 00:[address] Chalino Smith MD) Abnormal TSH Mixed hyperlipidemia Abnormal cardiac CT angiography Type 2 diabetes mellitus Home Medications ?Medication ?Instructions ?Recorded ?Last Taken ?Type metformin 500 mg tablet 1,000 mg PO BIDCM DIABETES 05/12/18 05/12/18 History 1000 MG vitamins A,C,X-aqcy-ipsoam 4,296 1 cap PO DAILY 01/09/19 Unknown History mcg-226 mg-90 mg capsule (PreserVision AREDS) cholecalciferol (vitamin D3) 125 5,000 unit PO DAILY 01/13/19 Unknown History mcg (5,000 unit) capsule dapagliflozin propanediol 10 mg 10 mg PO DAILY 09/21/24 Unknown History tablet (Farxiga) semaglutide 0.25 mg or 0.5 mg (2 0.5 mg subcut QWEEK 09/21/24 Unknown History mg/3 mL) subcutaneous pen injector (Ozempic) Allergy/AdvReac Type Severity Reaction Status Date / Time No Known Allergies Allergy Verified 09/21/24 22:13 Family History (Updated 01/13/19 @ 15:10 by Marcela Pino) Mother CVA (cerebral vascular accident) Grandfather Heart disease Father Kidney disease Daughter Rrffp-Xxyefpdxr-Gcyop (WPW) syndrome Surgical History History of knee surgery History of umbilical hernia repair Social History (Updated 01/13/19 @ 16:[address] Bakari Gibson MD) Smoking Status: Never smoker alcohol intake: current details: occasional substance use type: does not use caffeine: No Vital Signs Vital Signs Vital Signs: 09/21/24 22:13 09/21/24 23:00 09/21/24 23:02 Temperature 97.6 F L Temperature Source Temporal Pulse Rate 105 H 97 Respiratory Rate 18 18 Respiratory Effort Respiratory Depth Respiratory Pattern Blood Pressure 154/106 H 132/107 H Blood Pressure Mean 122 115 Blood Pressure Source Blood Pressure Position Blood Pressure Location Pulse Ox 97 97 99 Oxygen Delivery Method Room Air Room Air Room Air 09/22/24 00:00 09/22/24 00:00 09/22/24 02:00 Temperature 99.0 F Temperature Source Pulse Rate 91 93 79 Respiratory Rate 16 16 16 Respiratory Effort Respiratory Depth Respiratory Pattern Blood Pressure 150/92 H 150/92 H 147/93 H Blood Pressure Mean 111 111 111 Blood Pressure Source Blood Pressure Position Blood Pressure Location Pulse Ox 96 97 96 Oxygen Delivery Method Room Air Room Air 09/22/24 02:57 09/22/24 03:00 09/22/24 03:22 Temperature 97.0 F L Temperature Source Temporal Pulse Rate 70 Respiratory Rate 18 Respiratory Effort Normal Non-Labored Respiratory Depth Normal Respiratory Pattern Normal Blood Pressure 176/99 H Blood Pressure Mean 124 Blood Pressure Source Monitor Blood Pressure Position Semi-Fowlers Blood Pressure Location Left Arm Pulse Ox 95 96 Oxygen Delivery Method Room Air Room Air Room Air 09/22/24 05:53 09/22/24 07:25 09/22/24 08:59 Temperature 96.5 F L 97.0 F L Temperature Source Temporal Temporal Pulse Rate 66 70 Respiratory Rate 18 12 Respiratory Effort Respiratory Depth Respiratory Pattern Blood Pressure 161/105 H 166/100 H Blood Pressure Mean 123 122 Blood Pressure Source Monitor Monitor Blood Pressure Position Semi-Fowlers Sitting Blood Pressure Location Left Arm Left Arm Pulse Ox 97 97 Oxygen Delivery Method Room Air Room Air Room Air 09/22/24 09:10 09/22/24 09:10 Temperature 97.0 F L Temperature Source Temporal Pulse Rate 70 Respiratory Rate 12 Respiratory Effort Respiratory Depth Respiratory Pattern Blood Pressure 166/100 H Blood Pressure Mean 122 Blood Pressure Source Monitor Blood Pressure Position Sitting Blood Pressure Location Left Arm Pulse Ox 97 Oxygen Delivery Method Room Air Room Air Weight Weight: 100.1 kg Body Mass Index (BMI) 32.5 EEG Results Procedure Details EEG Procedure Details: DORCAS BRISENO Jr. is a 58 year old M with a past medical history of , who presents for evaluation of Electroencephalogram on DATE at TIME Lab / Micro Data 09/22/24 05:20 09/22/24 05:20 Labs: Laboratory Results - last 24 hr 09/21/24 22:54: WBC 7.0, RBC 5.39, Hgb 15.5, Hct 44.4, MCV 82.4, MCH 28.8, MCHC 34.9, RDW Std Deviation 40.5, RDW Coeff of Alexey 13.7, Plt Count 258, MPV 9.2, Immature Gran % (Auto) 0.300, Neut % (Auto) 53.3, Lymph % (Auto) 37.1, [place] % (Auto) 6.0, Eos % (Auto) 2.6, Baso % (Auto) 0.7, Absolute Neuts (auto) 3.7, Absolute Lymphs (auto) 2.58, Nucleated RBC % 0, Sodium 136, Potassium 4.2, Chloride 99, Carbon Dioxide 20.2 L, Anion Gap 16 H, BUN 12, Creatinine 1.01, Estim Creat Clear Calc 96.74, Est GFR (MDRD) Non-Af 87, BUN/Creatinine Ratio 11.4, Glucose 185 H, Calcium 9.1 09/22/24 05:20: WBC 7.2, RBC 5.08, Hgb 14.8, Hct 42.4, MCV 83.5, MCH 29.1, MCHC 34.9, RDW Std Deviation 42.1, RDW Coeff of Alexey 13.8, Plt Count 258, MPV 9.5, Immature Gran % (Auto) 0.300, Neut % (Auto) 45.1 L, Lymph % (Auto) 45.4 H, [place] % (Auto) 5.7, Eos % (Auto) 2.9, Baso % (Auto) 0.6, Absolute Neuts (auto) 3.2, Absolute Lymphs (auto) 3.25, Nucleated RBC % 0, Sodium 135, Potassium 4.0, Chloride 100, Carbon Dioxide 19.4 L, Anion Gap 16 H, BUN 12, Creatinine 0.92, Estim Creat Clear Calc 104.57, Est GFR (MDRD) Non-Af 97, BUN/Creatinine Ratio 12.9, Glucose 158 H, Calcium 9.0, Triglycerides 1310 H, Cholesterol 261 H, LDL Cholesterol, Calc -31, VLDL Cholesterol 262 H, HDL Cholesterol 30 L, Cholesterol/HDL Ratio 8.85 Rhythm Strip Rhythm Strip: Sinus Rhythm Rate: 87 Ectopy: None Imaging Radiology Impression Head/Neck CTA 09/21/24 22:46 IMPRESSION: 1. No acute intracranial abnormality. 2. Widely patent intracranial and cervical arterial vasculature. 3. 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 Reading Location: [id number] Echocardiogram 09/22/24 05:52 Interpretation Summary Normal LV size. Left ventricular systolic function is normal. Bubble contrast study negative for right to left interatrial shunt. The left ventricular ejection fraction is 55 %. Mild to moderately dilated aortic root. Ordering Physician: Bakari Dominguez Performed By: Stephane Chi RCS Brain MRI 09/22/24 05:55 IMPRESSION: Mucosal thickening is noted in the left maxillary sinus. Negative MRI of the brain. Reading Location: [facility] Active Medications Active Medications Active Medications: Current Medications Generic Name Dose Route Start Last Admin Trade Name Freq PRN Reason Stop Dose Admin Cholecalciferol 125 mcg 09/22/24 10:00 09/22/24 09:56 Cholecalciferol (Vit D3) 125 Mcg Capsule (5,000 Units) PO Not Given DAILY KINZA Empagliflozin 25 mg 09/22/24 10:00 09/22/24 09:02 Empagliflozin 25 Mg Tablet PO 25 mg DAILY KINZA Administration Enoxaparin Sodium 40 mg 09/22/24 10:00 09/22/24 09:55 Enoxaparin 40 Mg/0.4 Ml Syringe SC Not Given DAILY KINZA Hydralazine HCl 5 mg 09/22/24 02:46 Hydralazine 20 Mg/Ml Vial IV 09/23/24 02:46 Q30M PRN maintain BP parameters with HR <60 Sodium Chloride 250 mls @ 15 mls/hr 09/22/24 02:48 IV .[id number] PRN Saline Flush Sodium Chloride 250 mls @ 15 mls/hr 09/22/24 02:48 IV .[id number] PRN Additional IVPB Infusion Labetalol HCl 20 mg 09/21/24 22:45 Labetalol 20 Mg/4 Ml Vial IV 09/22/24 22:46 X1 PRN BLOOD PRESSURE Labetalol HCl 10 - 20 mg 09/22/24 02:46 Labetalol 20 Mg/4 Ml Vial IV 09/23/24 02:46 Q10M PRN PRN maintain BP parameters with HR >/=60 Multivitamins/Minerals 1 cap 09/22/24 10:00 09/22/24 09:02 Multivitamin (Healthy Eyes) Capsule PO 1 cap DAILY KINZA Administration Sodium Chloride 10 - 40 ml 09/22/24 02:48 0.9% Saline Lock 10 Ml Syringe IV UD PRN SALINE FLUSH NIHSS NIHSS Nursing Documentation NIHSS Nursing Documentation: NIHSS: Ischemic Stroke/TIA Start: 09/22/24 02:46 Text: For PCU Patients: NIH and Neuro Check every 4 Status: Active hours, PRN and with change in RN caregiver. Freq: [id number] Protocol: Activity Type Activity Date Activity User E-sign Co-sign Detail Recorded Client Recorded Date Recorded By Document 09/22/24 09:10 LAURENT [id number] 09/22/24 10:01 LAURENT 09/22/24 09:10 NIH Stroke Scale [NIHSS] A score of 0 is normal or asymptomatic . Total possible score is 42. Inpatient: RN or Physician to activate a stroke alert for onset of new stroke symptoms or with NIHSS increase >/= 3 points. Following change in neurological status, NIHSS will be performed per physician order or more frequently PRN. -1a. Level of Consciousness 0 - Alert; keenly responsive -1b. LOC Questions 0 - Answers BOTH questions correctly -1c. LOC Commands 0 - Performs BOTH tasks correctly -2. Best Gaze 0 - Normal -3. Visual 0 - No visual loss -4. Facial Palsy 0 - Normal symmetrical movements -5a. Left Arm 0 - No drift; arm holds 90 ( or 45) degrees for full 10 seconds -5b. Right Arm 0 - No drift; arm holds 90 ( or 45) degrees for full 10 seconds -6a. Left Leg 0 - No drift; leg holds 30- degree position for full 5 seconds -6b. Right Leg 0 - No drift; leg holds 30- degree position for full 5 seconds -7. Limb Ataxia 0 - Absent -8. Sensory 0 - Normal; no sensory loss -9. Best Language 0 - No aphasia; normal -10. Dysarthria 0 - Normal -11. Extinction and Inattention 0 - No abnormality -Total 0 Query Text:A score of 0 is normal or asymptomatic. Total possible score is 42 . ED: Notify Physician for NIHSS increase by > / = 3 points. Inpatient: RN or Physician to activate a stroke alert for NIHSS increase of > / = 3 points. Coma Scale [Assess] -Eye Opening Spontaneous -Motor Obeys Commands -Verbal Oriented [Total] -Coma Scale Total 15
--- NOTE | 2024-09-22 15:13 | PN.HOSP_ITS ---
Hospitalist Note Patient is a 58-year-old white male who presented to the emergency department [facility] late in the evening on 09/13/2024 with a chief complaint of numbness of his left tongue and mouth, left hand, and left foot. Symptoms lasted about 10 seconds at a time and happen several times in the past 36 hours prior to presentation. Last event occurred about an hour prior to presentation. He was asymptomatic at the time of arrival. He had no associated headache, vision changes but did have some dizziness but initially felt like li ghtheadedness but then sounded more like disequilibrium with balance issues. Patient is not on any antiplatelet therapy or anticoagulants at baseline but is diabetic. Vital signs on presentation showed temperature of 97.6, heart rate 105, blood pressure 154/106 with pulse ox of 97% on room air. CBC on presentation was unremarkable. Chemistry panel on presentation was unremarkable. Glucose was 185. CTA of the head and neck showed a small 2 mm saccular aneurysm in the supraclinoid right ICA but was otherwise unremarkable. EKG was sinus rhythm and no ST-T wave changes concerning for acute ischemia and normal intervals. Given these findings admission for stroke workup was pursued. NIH is have been 0 since admission. MRI was negative for any acute findings this was noncontrasted. Echocardiogram showed a normal EF of 55% with a mild to moderate dilated aortic root and a negative bubble study. Neurology evaluated the patient and recommended an EEG and an MRI with and without contrast of the brain and cervical spine. His blood pressure has remained elevated throughout his hospital stay warranting initiation of therapy. Will start losartan 50 mg daily. EEG and MRIs are pending at this time. Workup to be completed and do anticipate discharge tomorrow.
[2024-09-23 03:29] VITALS: BP 139/105; PULSE 72; RESP 18; TEMP 35.9; O2SAT 96
[2024-09-23 09:00] VITALS: BP 155/99; PULSE 77; RESP 18; TEMP 36.6; O2SAT 97
[2024-09-23] MEDS: Multivitamin (Healthy Eyes) Capsule 1 CAP PO (09:02)
[2024-09-23] MEDS: Cholecalciferol (Vit D3) 125 MCG CAPSULE (5,000 UNITS) PO (09:02)
--- NOTE | 2024-09-23 10:58 | DS.PCM_ITS ---
Providers Date of Admission: 09/22/24 Date of Discharge: 09/23/24 Primary Care Physician: Dr. Marva Wang, DO Consultations 09/22/24 07:56 Neurology [Consult: Tele-Neurology] Routine Consulting Provider: [facility] Reason for Consult: L sided weakness EMERGENT Consult: No MD Notified: Yes Date Notified: 09/22/24 Time Notified: 08:19 Method of Notification: Answering Service Nursing Unit Staff Notify [facility] of Tele-Neurology Consult: Yes Reason For Visit: LEFT-SIDED NUMBNESS AND TINGLING Diagnosis Discharge Diagnosis (1) Left sided numbness: Status: Acute Code(s): R20.0 - Anesthesia of skin (2) Mixed hyperlipidemia: Status: Chronic Code(s): E78.2 - Mixed hyperlipidemia (3) Type 2 diabetes mellitus: Status: Acute Code(s): E11.9 - Type 2 diabetes mellitus without complications (4) Dysequilibrium: Status: Acute Code(s): R42 - Dizziness and giddiness Medications at Discharge Home Medications metformin 500 mg tablet 1,000 mg PO BIDCM DIABETES 05/12/18 vitamins A,C,R-ayxh-usdypw 4,296 mcg-226 mg-90 mg capsule (PreserVision AREDS) 1 cap PO DAILY 01/09/19 cholecalciferol (vitamin D3) 125 mcg (5,000 unit) capsule 5,000 unit PO DAILY 01/13/19 dapagliflozin propanediol 10 mg tablet (Farxiga) 10 mg PO DAILY 09/21/24 semaglutide 0.25 mg or 0.5 mg (2 mg/3 mL) subcutaneous pen injector (Ozempic) 0.5 mg subcut QWEEK 09/21/24 atorvastatin 80 mg tablet (Lipitor) 80 mg PO DAILY #30 tabs 09/23/24 losartan 100 mg tablet 100 mg PO DAILY #30 tabs 09/23/24 Hospital Course Operations None Procedures 2-D Echocardiogram, Electroencephalogram and - (CTA head and neck/MRI brain without contrast/MRI brain with and without contrast/MRI cervical spine without contrast) Summary of Care Provided Minutes Spent on Discharge: 38 Hospital Course: Patient is a 58-year-old white male who presented to the emergency department [facility] late in the evening on 09/13/2024 with a chief complaint of numbness of his left tongue and mouth, left hand, and left foot. Symptoms lasted about 10 seconds at a time and happen several times in the past 36 hours prior to presentation. Last event occurred about an hour prior to presentation. He was asymptomatic at the time of arrival. He had no associated headache, vision changes but did have some dizziness but initially felt like lightheadedness but then sounded more like disequilibrium with balance issues. Patient is not on any antiplatelet therapy or anticoagulants at baseline but is diabetic. Vital signs on presentation showed temperature of 97.6, heart rate 105, blood pressure 154/106 with pulse ox of 97% on room air. CBC on presentation was unremarkable. Chemistry panel on presentation was unremarkable. Glucose was 185. CTA of the head and neck showed a small 2 mm saccular aneurysm in the supraclinoid right ICA but was otherwise unremarkable. EKG was sinus rhythm and no ST-T wave changes concerning for acute ischemia and normal intervals. Given these findings admission for stroke workup was pursued. NIH has been 0 since admission. MRI of the brain with and without contrast was negative for any acute findings. MRI of the cervical spine showed degenerative changes but nothing that could cause this etiology. EEG was unremarkable for any acute findings. Echocardiogram showed a normal EF of 55% with a mild to moderate dilated aortic root and a negative bubble study. Neurology evaluated the patient and felt the patient could be discharged with outpatient follow-up. Patient's blood pressure was significant elevated throughout his hospitalization above 130/80 without being normotensive at all. We did add losartan 100 mg p.o. daily at the time of discharge. He was given 50 mg while hospitalized which brought his blood pressure down some but still was not adequate. Prescription for 1 month supply was sent to local pharmacy. His cholesterol was also noted to be markedly abnormal. Triglycerides were 1310/total cholesterol is 261/LDL was unable to be calculated due to hypertriglyceridemia. HDL was 30. Patient did state that he ate sweat and since the day prior however this was fasting. Given these findings, he was placed on atorvastatin 80 mg daily and given 1 month supply at time of discharge. He was asked to follow-up with his primary care physician. Hemoglobin A1c was pending at the time of discharge. He is a known type II diabetic and is on therapy per his primary care physician with metformin, Ozempic, and Farxiga. I have asked that he follow-up with his primary care physician within the next week for blood pressure check as well as further follow-up on his hemoglobin A1c to see if we need to uptitrate or change any of his diabetes medications. It was recommended that he follow-up in the clinic with neurology regarding his symptoms and the small saccular aneurysm noted on CTA. Aneurysm was an incidental finding on the contralateral side of his symptoms. Referral was made to neurology at the time of discharge. Discharge diagnoses: Left-sided tingling/paresthesias in face hand and foot Essential hypertension Hyperlipidemia Hypertriglyceridemia DM-2 Obesity Physical Exam Const alert, oriented x3, no apparent distress, no limitations, healthy appearing and well nourished; Negative for average body habitus Constitutional Narrative: Middle-aged, obese, white male, sitting up in bed, appears comfortable, nontoxic General Appearance: cooperative, comfortable, well kempt and well developed Exam Limitations: no limitations Nutritional Appearance: obese HEENT normocephalic, head/scalp atraumatic, hearing grossly normal bilaterally and moist oral mucous membranes HEENT Narrative: Mallampati 3, no thrush, dentition is good for age Eyes conjunctivae normal Eyes Narrative: No scleral icterus Neck supple Neck Narrative: Trachea midline Resp normal respiratory effort, no retractions, no use of accessory muscles and clear to auscultation bilaterally Auscultation: Negative for rales, rhonchi or wheezes Cardio regular rate, regular rhythm, S1 normal heart sound, S2 normal heart sound, no murmurs, no rub, no gallops and no clicks GI normal to inspection, nondistended, normoactive bowel sounds, soft to palpation and non-tender Extremity no clubbing, cyanosis or edema Extremity Narrative: 2+ pedal pulses Skin no wounds, no jaundice, no petechiae and no mottling Neuro oriented x3, moves all extremities, no focal motor deficits and no sensory deficits noted Speech: speech normal Psych affect normal Psych Narrative: Very pleasant, interacts appropriately Weight / BMI Weight Weight: 100.1 kg Body Mass Index (BMI) 32.5 ABG / Lab / Microbiology Data 09/22/24 05:20 09/22/24 05:20 Radiography Diagnostic Testing: Radiology Impression Echocardiogram 09/22/24 05:52 Interpretation Summary Normal LV size. Left ventricular systolic function is normal. Bubble contrast study negative for right to left interatrial shunt. The left ventricular ejection fraction is 55 %. Mild to moderately dilated aortic root. Ordering Physician: Bakari Dominguez Performed By: Stephane Chi, LEE Brain MRI 09/22/24 12:39 IMPRESSION: No acute intracranial abnormality. Reading Location: [facility] Cervical Spine MRI 09/22/24 12:40 IMPRESSION: 1. No acute abnormality; no acute fracture or malalignment. 2. Normal appearance of the cervical cord. No pathologic enhancement. 3. Mild multilevel spondylotic changes without any significant spinal canal narrowing or disc herniation. Neural foraminal narrowing is mild-moderate bilaterally at C5-6, and moderate-advanced bilaterally at C7-T1 and T1-T2. Reading Location: [facility] D/C Instructions Discharge Activity: Return to Normal Activity Return to work on: 09/24/24 DC O2, CPAP, BIPAP Needs Home O2 Discharge instructions: No Meaningful Use Info Meaningful Use Meaningful Use Diagnoses (Choose all that apply): None applicable Discharge Plan Admission Admit Date/Time: 09/22/24 01:12 Primary Reason for Your Visit: Left face/upper extremity/lower extremity tingling/numbness Attending Provider: Jelly Mcmahan Primary Care Provider: Marva Wang Consulting Providers: Bakari Dominguez; Korey Salcedo; Latesha Gregory; Sobia Snow; Liyah Sherman; Viola Guadarrama; Rajendra Reynolds; Aylin Osorio; Leonel Bal; Alex Culver; Medhat Kitchen; Deyanira Hernández; aJck Lindsey; Carmen Alberts; Orlando Le; Irwin Lund; Delonte Melendez; Isaias Trotter; Ken Lopez; Jessica Mcmahan; Hakeem Ordonez; Hillary Nino; Jarod Navarro; Tim Jones; OPAL MORALES; Emmett Marino; Pamela Willett Instructions Forms: Work Excuse Discharge Orders/Prescriptions Prescriptions: New losartan 100 mg tablet 100 mg PO DAILY Qty: 30 0RF atorvastatin [Lipitor] 80 mg tablet 80 mg PO DAILY Qty: 30 0RF Continued cholecalciferol (vitamin D3) 5,000 unit capsule 5,000 unit PO DAILY PreserVision AREDS 14,320-226-200 brxx-cu-llrd capsule 1 cap PO DAILY metformin 500 MG tablet 1,000 mg PO BIDCM dapagliflozin propanediol [Farxiga] 10 mg tablet 10 mg PO DAILY Ozempic 0.25 mg or 0.5 mg (2 mg/3 mL) pen injector 0.5 mg subcut QWEEK Referrals / Follow Up: Marva Wang DO [Primary Care Provider] - Within 2 Weeks Uriel Nasciemnto MD [Non-Staff -Ordering Privileges] - Within 1 Month Disposition Disposition (needs filled in before D/C Order can be placed): Home, Self Care Charges/Coding Visit Charges Inpatient E&M: 14164 Disch Hosp >30min
--- NOTE | 2024-09-23 11:15 | CASEMGMT ---
Patient has order for discharge. RN CM in to discuss needs at discharge. Patient denies needs or help at discharge. Patient had no further questions or concerns.
[2024-09-23 11:26] VITALS: BMI 32.5
--- NOTE | 2024-09-23 12:26 | PHA.DC.MC.R ---
Pharmacy [facility] Counseling Pharmacy Service has performed discharge medication reconciliation and counseling for this patient. 1. ATORVASTATIN 80MG PO DAILY 2. LOSARTAN 100MG PO DAILY The patient's discharge medication list was reviewed for discrepancies and discrepancies were resolved. The patient was counseled on the following discharge medications and changes in medications for homegoing were reviewed. The Reason for Use, instructions for use, and potential side effects were reviewed for all new medications. The patient's questions regarding all of their medications were answered. The patient was able to verbally demonstrate an understanding of their discharge medications. Medications at Discharge Home Medications metformin 500 mg tablet 1,000 mg PO BIDCM DIABETES 05/12/18 vitamins A,C,M-sdkf-syqynl 4,296 mcg-226 mg-90 mg capsule (PreserVision AREDS) 1 cap PO DAILY vitamin 01/09/19 cholecalciferol (vitamin D3) 125 mcg (5,000 unit) capsule 5,000 unit PO DAILY vitamin 01/13/19 dapagliflozin propanediol 10 mg tablet (Farxiga) 10 mg PO DAILY diabetes 09/21/24 semaglutide 0.25 mg or 0.5 mg (2 mg/3 mL) subcutaneous pen injector (Ozempic) 0.5 mg subcut QWEEK diabetes 09/21/24 atorvastatin 80 mg tablet (Lipitor) 80 mg PO DAILY #30 tabs 09/23/24 losartan 100 mg tablet 100 mg PO DAILY #30 tabs 09/23/24
== END 2024-09-23 11:09 | disposition home or self-care (01) ==
LOC: ED 09-22 00:46 → PCU 09-22 02:59
PROVIDERS: Admitting Provider Family Medicine; Emergency Provider Emergency Medicine; PCP Internal Medicine; Visit Provider Internal Medicine
DX: R20.0 Anesthesia of skin (principal); E11.9 Type 2 diabetes mellitus without complications; R20.2 Paresthesia of skin; R53.1 Weakness; I67.1 Cerebral aneurysm, nonruptured; E66.9 Obesity, unspecified; R42 Dizziness and giddiness; I10 Essential (primary) hypertension; Z79.84 Long term (current) use of oral hypoglycemic drugs; E78.2 Mixed hyperlipidemia; Z79.85 Long-term (current) use of injectable non-insulin antidiabetic drugs; Z79.899 Other long term (current) drug therapy; Z68.32 Body mass index [BMI] 32.0-32.9, adult
CPT/HCPCS: 36415; 70496; 70498; 70551; 70553; 72156; 80048; 80061; 83036; 85025; 93005; 93306; 94762; 95819; 97802; 99221; 99285; A9575; Q9957; Q9967; A4216; G0378

== ENCOUNTER → 2024-09-25 | Outpatient (CLI) | payer OTHER, SELFPAY | END | disposition home or self-care (01) | LOC: MTLAB 11:53 | PROVIDERS: PCP Internal Medicine | DX: E78.2 Mixed hyperlipidemia (principal); R20.0 Anesthesia of skin | CPT/HCPCS: 36415 ==